=== PATIENT | female | born 1965 | race Caucasian/White ===

== ENCOUNTER → 2018-02-03 15:46 | Outpatient (CLI) | payer BC, OTHER, SELFPAY ==
--- NOTE | 2018-02-03 16:00 | MRI_ITS ---
STUDY: MRI CERVICAL SPINE WITHOUT CONTRAST REASON FOR EXAM: Female, 53 years old. Neck and right shoulder pain TECHNIQUE: Standardized fat and water weighted pulse sequences were obtained in the sagittal and axial planes. COMPARISON: None FINDINGS: Normal foramen magnum and brainstem-cervical cord junction. Normal craniovertebral junction. Normal anterior atlantoaxial articulation. Normal odontoid process. Decreased cervical lordosis. Normal vertebral bodies and posterior osseous elements. C2-3: Normal endplates. Normal disc height, signal and morphology. Normal central canal and intervertebral neural foramina. C3-4: Normal endplates. Normal disc height, signal and morphology. Normal central canal and intervertebral neural foramina. C4-5: Normal endplates. Normal disc height, signal and mild broad-based left paracentral/posterolateral disc/osteophyte protrusion mildly narrowing the central canal and compressing the ventral surface of the cord on the left. There is mild to moderate narrowing of the right nerve root foramen and moderate to severe narrowing on the left. C5-6: Normal endplates. Normal disc height, signal and minor bulging of the disc.. Normal central canal. Severe left neuroforaminal stenosis secondary to bony hypertrophy C6-7: Normal endplates. Normal disc height, signal and bulging disc osteophyte complex with moderate size right posterolateral disc/osteophyte protrusion.. Mild narrowing of the central canal and encroachment upon ventral surface of the cord on the right. Moderate right neuroforaminal stenosis and more severe narrowing on the left. C7-T1: Normal endplates. Normal disc height, signal and morphology. Normal central canal and intervertebral neural foramina. Normal cervical cord. Normal visualized soft tissue structures. MRI/Spine Cervical (Routine) IMPRESSION: Spinal stenosis at C4-5, C5-6 and C6-7 secondary to disc disease and bony hypertrophy. Findings as above Incidental finding of bilateral thyroid nodules which may be further assessed with sonogram if clinically warranted Electronically Signed: Mg Curtis MD at 17:40 EDT , Service support ,
== END ==
PROVIDERS: Family Provider Family Medicine; PCP Family Medicine; Visit Provider Family Medicine
DX: M50.321 Other cervical disc degeneration at C4-C5 level (principal); M48.02 Spinal stenosis, cervical region; M89.38 Hypertrophy of bone, other site; E04.1 Nontoxic single thyroid nodule
CPT/HCPCS: 72141

== ENCOUNTER → 2018-02-16 15:41 | Outpatient (CLI) | payer BC, OTHER, SELFPAY ==
--- NOTE | 2018-02-16 15:42 | US_ITS ---
STUDY: THYROID ULTRASOUND REASON FOR EXAM: Female, 53 years old. Thyroid nodule TECHNIQUE: Ultrasound evaluation of the thyroid was performed with real-time and static cobos-scale imaging. COMPARISON: None. FINDINGS: RIGHT LOBE: The right lobe of the thyroid gland measures 4.8x1.7x1.9 cm. There is a homogeneous echotexture. Inferior nodule visualized measuring 17 x 14 x 11 mm. The lesion is solid /cystic with irregular margins and rico nodular doppler flow. LEFT LOBE: The left lobe of the thyroid gland measures 4.6x2x1.7 cm. There is a homogeneous echotexture. 2 nodules visualized. Superior nodule measures 4.9x 5.7 x 4 mm. Inferior nodule measures 12 x 10 x 9.4 mm. The lesion is solid with regular margins and rico nodular doppler flow. ISTHMUS: The isthmus measures 3 mm. . Lymph node in the lateral left neck measuring 14 x 10 mm. US/Thyroid IMPRESSION: Bilateral thyroid nodules. The [place] Association of Clinical Care Support Representative (AACE) in collaboration with the [employer] (DWAYNE) and the Thyroid Association (ETA) published guidelines for the diagnosis and management of thyroid nodules. Biopsy of any solid and hypoechoic nodule larger than 1 cm in diameter. Thyroid nodules of any size undergo biopsy if the patient has been exposed to irradiation, has a family history of medullary carcinoma or multiple endocrine neoplasia, or has previously undergone partial thyroidectomy for thyroid cancer or if an elevated calcitonin level is present. The AACE/DWAYNE/ETA guidelines recommend biopsy of nodules of any size with marked hypoechogenicity, irregular or microlobulated margins, a taller than wide configuration (anteroposterior dimension greater than transverse dimension), microcalcifications, or chaotic arrangement of intranodular vascular images or chaotic intranodular vascular spots. These guidelines recommend biopsy independent of size if ultrasonography suggests the presence of metastatic lymph nodes or if extracapsular growth is noted in the nodule. They recommend biopsy of the solid component of all complex cystic nodules because of the risk of cystic papillary carcinoma. They further suggest that nodules that are hot on scintigraphy do not require biopsy. -Current Guidelines for the Management of Thyroid Nodules. Raúl Finch MD, DEBBY SHIRLEY. Endocr Pract. 2012; 18(4): 596-599. Electronically Signed: Flex Gaona MD at 17:43 EDT , Service support ,
== END ==
PROVIDERS: Family Provider Family Medicine; PCP Family Medicine; Visit Provider Family Medicine
DX: E04.2 Nontoxic multinodular goiter (principal)
CPT/HCPCS: 76536

== ENCOUNTER → 2018-05-16 19:50 | Outpatient (CLI) | payer BC, OTHER, SELFPAY ==
[2018-05-19 14:59] LABS: HPV HC, High Risk Negative (Negative)
== END ==
PROVIDERS: Visit Provider Obstetrics & Gynecology
DX: Z12.4 Encounter for screening for malignant neoplasm of cervix (principal)
CPT/HCPCS: 87624; 88175; G0145

== ENCOUNTER → 2018-06-14 15:48 | Outpatient (CLI) | payer BC, OTHER, SELFPAY | PROVIDERS: Family Provider Family Medicine; PCP Family Medicine; Visit Provider Obstetrics & Gynecology | DX: M81.0 Age-related osteoporosis without current pathological fracture (principal); Z12.31 Encounter for screening mammogram for malignant neoplasm of breast | CPT/HCPCS: 77063; 77067; 77080 ==

== ENCOUNTER 2018-06-21 09:47 | Day surgery (SDC) | payer BC, OTHER, SELFPAY ==
--- NOTE | 2018-06-20 18:24 | PCM.HP.BLA ---
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 Required: No Accompanied by: None Is patient in pain?: No Allergies No Known Allergies Allergy (Verified 06/16/18 09:40) Medications Atenolol [Tenormin (beta ella)] 100 mg PO QHS 06/27/16 [History Confirmed 06/16/18] Fluoxetine [Prozac] 60 mg PO DAILY 06/27/16 [History Confirmed 06/16/18] Gemfibrozil [Lopid] 600 mg PO BID 06/27/16 [History Confirmed 06/16/18] Metformin HCl [Glucophage] 1,000 mg PO BIDCM 06/27/16 [History Confirmed 06/16/18] buPROPion tablets [Wellbutrin tablets] 100 mg PO QHS 06/27/16 [History Confirmed 06/16/18] Dulaglutide [Trulicity] 1.5 mg SQ MO 09/17/17 [History Confirmed 06/16/18] Ibuprofen 800 mg PO Q8H PRN PRN #30 tab 09/22/17 [Rx Confirmed 06/16/18] PFSH Medical History Anxiety (Acute) Arthritis (Acute) Carpal tunnel syndrome (Acute) Depression (emotion) (Acute) Diabetes (Acute) High triglycerides (Acute) High blood pressure (Chronic) Surgical History History of bilateral oophorectomy (Acute) History of carpal tunnel surgery of left wrist (Acute) History of section (Acute) History of cholecystectomy (Acute) Family History Son Anxiety Father Osteoporosis Mother Arthritis Social History Smoking Status: Never smoker alcohol intake: never substance use type: does not use additional social history: DOES USE ASPIRIN DOES USE IBUPROFEN HPI evaluation Dupuytren's disease bilateral palms with painful nodularity: Details: HISTORY OF PRESENT ILLNESS 53 year old woman presents with painful nodularity in her bilateral palms, worse on the left, that she noticed several months ago and the painful symptomatology has worsened. She has also noticed some paresthesias in her long finger and ring finger bilaterally. She had a left carpal tunnel surgery done by Dr. Ewing in 2016. She is able to straighten her fingers. She denies any trauma. She denies any fever. She denies any alcohol usage. The patient does not smoke. Patient denies epilepsy. She does have diabetes mellitus. She presents today for further evaluation and treatment. REVIEW OF SYSTEMS General - Denies fever, fatigue, and weight loss. Eyes - Denies cataracts and glaucoma. ENT - Denies nasal congestion and sore throat. Endocrine - Denies excessive thirst and urination. Skin - Denies skin cancer. Has painful nodules bilateral palms. Musculoskeletal - Has joint pain and joint stiffness and arthritis. Denies weakness of muscles and joints and back pain. Neuro - Denies headaches. Has paresthesias bilateral long finger and ring finger. Cardiovascular - Denies chest pain, fatigue, and shortness of breath with exertion. Psych - Denies anxiety. Has depression. Respiratory - Denies chronic cough and shortness of breath. Has sleep apnea. Gastrointestinal - Denies nausea, vomiting, diarrhea, and constipation. Hematologic - Denies abnormal bruising and bleeding. Genitourinary - Denies hematuria and urinary frequency. PHYSICAL EXAM General - Alert and Oriented HEENT - PERRL. EOMI. Throat is clear. Neck - Supple and nontender. No cervical adenopathy. Lungs - Clear to auscultation. Heart - Regular rate and rhythm. Abdomen - Soft and nondistended. Extremities - Patient is right hand dominant. FROM. No axillary adenopathy. Radial pulses are palpable. Fingers are warm with good capillary refill. On the left distal palm at the crease are painful nodules at the level of the long finger and ring finger. Measures 2.5 cm. Tenderness to palpation. Some adherence to the overlying skin. No ulceration. Fingers are straight. Decreased sensation to pinprick at the level of the long finger and ring finger. On the right distal palm at the crease is a painful nodule at the level of the long finger and ring finger. Measures 1 cm. Mild tenderness to palpation. Some adherence to the overlying skin. No ulceration. Fingers are straight. Decreased sensation to pinprick at the level of the long finger and ring finger. Neuro - CN II-XII grossly intact. Psych - Normal mood and affect. ASSESSMENT 1. 2.5 cm painful Dupuytren's nodules left distal palm at the crease at the level of the long finger and ring finger. 2. 1 cm painful Dupuytren's nodule right distal palm at the crease at the level of the long finger and ring finger. 3. Paresthesias bilateral long finger and ring fingers. 4. History of left carpal tunnel surgery. PLAN Recommend excision of these painful Dupuytren's nodules in her palm bilaterally, worse on the left. Will do the left side first. Her fingers are straight at the present time. However some fibrous tissue may be developing at the base of the finger. So she is at risk in the future for contracture of her fingers thus necessitating additional surgery. Depending on how much skin needs to be removed in the palm will decide if primary closure can be done versus a local skin flap or a skin graft or leaving the wound open and proceed with Silver dressing changes daily. Any tissue that is removed will be sent to Pathology for analysis to rule out carcinoma. After healing has occurred on the left, then we can proceed with the right hand. After the surgeries have been completed, if paresthesias persists on the right, then will obtain NCV studies. She already had left carpal tunnel surgery in 2016. Surgery will be done under general anesthesia on an outpatient basis. Will have a bulky dressing in the palm postop. Finger range of motion will be encouraged to minimize stiffness. If there are difficulties with stiffness postop, then evaluation by OT will be done for range of motion exercises, strengthening, and edema management. Patient was informed of the risks and complications of the procedure including alternatives to surgery. These were discussed with the patient personally. Patient voices understanding and wishes to proceed. Some of the risks and complications were included in a form from the [place] [employer]. Some of the risks and complications that were discussed included but were not inclusive of failure to diagnose including symptom relief, pain, infection, numbness, stiffness, loss of digit, RSD (CRPS), need for further surgery, contracture, and wound healing problems.
[2018-06-21] VITALS (8 sets, daily range): BP systolic 128–154; BP diastolic 67–96; PULSE 78–98; RESP 16–18; TEMP 36.1–36.6; O2SAT 90–99; BMI 31.7
[2018-06-21 10:35] LABS: Bedside Glucose 126 mg/dL (70-110)
--- NOTE | 2018-06-21 11:30 | DUP_PTH ---
PATIENT: VINCENZO EMERY [place]: [facility] [place] U[place][id number] AGE/SX: 53/F ROOM: RE06/21/[address]: Dr. Scotty Hendrix MD : 1965 BED: DIS: 06/21/2018 SPEC #: [id number] RECD: 06/22/18 09:08 STATUS: JORI PIMENTEL #: [id number] BHARATHI: 06/21/18 11:[address]: Scotty Hendrix DEPT: SURGICAL PATHOLOGY RECD BY: Jaye Ramírez ENTERED: 06/22/18 10:04 SP TYPE: JENNIFER LOPEZHR DR: Damari Henson PA-C Tissues: Ligament, NOS Procedures: Surgery Specimen Level IV HEADER OPERATION: Excision painful Dupuytren?s nodules left palm PRE-OP DIAGNOSIS: 2.5 painful Dupuytren?s nodules left distal palm at crease at level of long finger and ring finger; 1 cm painful Dupuytren?s nodule right distal palm at crease at level of long and ring finger; paresthesias bilateral long finger and ring finger; history left carpal tunnel surgery TISSUE SUBMITTED: Dupuytren?s nodule, left palm MICROSCOPIC DIAGNOSIS Dupuytren's nodule, left palm, excision: Consistent with fibromatosis. JEFRY:lesly 06/23/18 MICROSCOPIC DESCRIPTION Slides are reviewed. GROSS DESCRIPTION Received in fixative is one container labeled with the patient's name and designated Dupuytren's nodule, left palm. The specimen consists of multiple irregular fragments of light null, rubbery soft tissue that in aggregate measure 2.5 x 2 x 0.2 cm. The specimen is totally submitted in one cassette. / AM:lesly 06/22/18 TC:5 CPT: 96924
[2018-06-21] MEDS: Cefazolin 2 GM in 0.9% Normal Saline 100 ML IV (13:45)
[2018-06-21] MEDS: Mupirocin Ointment 22gm Tube 1 APPLIC (14:37)
--- NOTE | 2018-06-21 15:36 | PCM.IMDPSTOP ---
Immediate Post-Op Note Date of Procedure: 06/21/18 Primary Surgeon/Physician: Scotty Hendrix oven technician: None Pre-Operative Diagnosis: 1. 2.5 cm painful Dupuytren's nodules left distal palm at the crease at the level of the long finger and ring finger. 2. Paresthesias left long finger and left ring finger. 3. History of left carpal tunnel surgery. Post-Operative Diagnosis: Same. Surgery/Procedure Performed:: 1. Excison 2.5 cm painful Dupuytren's nodules left distal palm at the crease by the the long finger and ring finger. 2. Neuroplasty common digital nerves left long finger and left ring finger. Description of Surgical Findings:: Total tourniquet time - 72 minutes. Estimated Blood Loss: 5 ml. Specimen's removed: Painful Dupuytren's nodules and fibromatosis left distal palm by long finger and ring finger to Pathology. Drains: None. Type of Anesthesia:: General - Admit VTE Documentation VTE Present on Admission: No VTE Mechan Device Prophylaxis: SCD's VTE Pharm Prophylaxis ordered?: No
--- NOTE | 2018-06-21 15:47 | PCM.DC ---
You will use the following diet at home:: No restrictions Discharge Activity: May Shower - place plastic bag over left hand when showering., - - no lifting with left hand. May shower in (days): 1 - wear plastic bag over left hand when showering. May resume sexual activity in: No Restrictions Weight Bearing Status: Weight bearing as tolerated Lifting Restrictions: no lifting with left hand. Keep extremity elevated above heart level: Left Arm Call your doctor if your incision/area has: Continuous Slow Oozing, Sudden Increased Bleeding, Increased Pain/ Swelling, Increased Redness, Foul Smelling Discharge, Swelling at the incision site Call your doctor if you observe: Fever of 101 or Higher, Coldness, Increased Pain, Shortness of breath, Chest pain, Calf discomfort, Uncontrolled pain Change Dressing in (Days):: 7 - will change dressing in office. Cleanse incision/area with: - - wear plastic bag over left hand when showering. Allergies/Adverse Reactions: Allergies No Known Allergies Allergy (Verified 06/16/18 09:40) Medications to take at Discharge Atenolol [Tenormin (beta ella)] 100 mg PO QHS 06/27/16 Fluoxetine [Prozac] 60 mg PO DAILY 06/27/16 Gemfibrozil [Lopid] 600 mg PO BID 06/27/16 Metformin HCl [Glucophage] 1,000 mg PO BIDCM 06/27/16 buPROPion tablets [Wellbutrin tablets] 100 mg PO QHS 06/27/16 Dulaglutide [Trulicity] 1.5 mg SQ MO 09/17/17 Cefadroxil [Duricef] 500 mg PO BID #8 cap 06/21/18 Oxycodone HCl/Acetaminophen [Percocet 5/325] 1 - 2 tab PO 4X/DAY PRN PRN 5 Days #40 tab 06/21/18 The following prescriptions were given: Oxycodone HCl/Acetaminophen [Percocet 5/325] 1 - 2 tab PO 4X/DAY PRN PRN 5 Days #40 tab PRN Reason: Pain Cefadroxil [Duricef] 500 mg PO BID #8 cap Primary Care Physician: Damari Henson PA-C [Primary Care Provider] - Test Results: Test results from this visit will be discussed in further detail at your follow-up appointment, if applicable. Please Follow Up With: Scotty Hendrix MD When: one week. call [phone] for appt. Proposed Discharge Date: 06/21/18
[2018-06-21 15:50] LABS: Bedside Glucose 103 mg/dL (70-110)
[2018-06-21] MEDS: Acetaminophen 325 MG Tablet PO (17:08)
[2018-06-21] MEDS: oxyCODONE 5 MG Tablet PO (17:08)
--- NOTE | 2018-06-21 23:36 | PCM.OPRPT ---
Report of Operation Date of Procedure: 06/21/18 Pre-Operative Diagnosis: 1. 2.5 cm painful Dupuytren's nodules left distal palm at the crease at the level of the long finger and ring finger. 2. Paresthesias left long finger and left ring finger. 3. History of left carpal tunnel surgery. Post-Operative Diagnosis: Same. Surgery/Procedure Performed:: 1. Excison 2.5 cm painful Dupuytren's nodules left distal palm at the crease by the left long finger and left ring finger with palmar fasciectomy. 2. Neuroplasty common digital nerve left long finger at distal palmar crease left hand. 3. Neuroplasty common digital nerve left ring finger at distal palmar crease left hand. Description of Surgical Findings:: 53 year old woman presents with painful nodularity in her bilateral palms, worse on the left, that she noticed several months ago and the painful symptomatology has worsened. She has also noticed some paresthesias in her long finger and ring finger bilaterally. She had a left carpal tunnel surgery done by Dr. Ewing in 2016. She is able to straighten her fingers. She denies any trauma. She denies any fever. She denies any alcohol usage. The patient does not smoke. Patient denies epilepsy. She does have diabetes mellitus. Patient was informed of the risks and complications of the procedure including alternatives to surgery. These were discussed with the patient personally. Patient voices understanding and wishes to proceed. Some of the risks and complications were included in a form from the [place] [employer]. Some of the risks and complications that were discussed included but were not inclusive of failure to diagnose including symptom relief, pain, infection, numbness, stiffness, loss of digit, RSD (CRPS), need for further surgery, contracture, and wound healing problems. Total tourniquet time - 72 minutes. 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 Drains: None. Estimated Blood Loss (mL): 5 ml. Description of Procedure: Patient was taken to OR in supine position and was placed under general anesthesia. A tourniquet was placed on her left arm. Her left upper extremity was then prepped and draped in the usual fashion. SCD's were placed for DVT prophylaxis. Perioperative antibiotics were given intravenously. The left upper extremity was elevated and an Esmarch bandage was used to wrap around the left hand. The tourniquet was elevated to 250 mmHg. Under loupe magnification, I infiltrated the left palm in the distal palmar crease with xylocaine with epinephrine. After waiting 5 minutes for the anesthetic to take effect, I made an incision in the distal palmar crease at the level of the long finger and ring finger. Dissection was carried down into the subcutaneous tissue. There was a lot of dense fibrous tissue adherent to the skin which was excised. I dissected free the painful Dupuytren's nodules in this area. The fibrous tissue extended down to the tendon sheath. There was fibrous connections and external pressure on the adjacent common digital nerves to both the long finger and ring finger. A neuroplasty was then performed to free up these nerves. I freed up these nerves distally to the bifurcation at the level of the webspace. After the neuroplasty, the nerves were soft with no more evidence of fibrous scarring. Also when I dissected down to the tendon sheath, the A1 luz was visible to both long finger and ring finger. I incised the A1 luz to both the long finger and the ring finger. This will eliminate the need to go back into this scar tissue later on if the patient were to develop trigger finger symptoms since the A1 luz has already been incised and opened up. The wound was irrigated with saline. The tourniquet was release after 72 minutes. Hemostasis was obtained with gentle pressure, elevation, and some light electrocautery. I then closed the wound in multiple layers with 5-0 Monocryl interrupted sutures for the deep dermis and subcutaneous tissue. The skin was approximated with 5-0 Nylon vertical mattress and simple interrupted sutures. Antibiotic ointment was applied to the incision followed by xeroform gauze and 2x2 gauze followed by a 2 inch ange wrap and a compression ivett wrap. Patient tolerated the procedure well and was sent to PACU in satisfactory condition. She will be sent home on antibiotics and pain medication. She will wear a plastic bag over her left hand when showering. She will keep her left hand elevated with no lifting in the initial postop period. She will followup in the office in a week for a wound check as well as to discuss the pathology report. The sutures would be removed in two weeks. Grafts/Implants Used: None. - Complications None. - Admit VTE Documentation VTE Present on Admission: No VTE Mechan Device Prophylaxis: SCD's VTE Pharm Prophylaxis ordered?: No Code Visit Surgery Charges CPT - 04103 ICD-10 - M72.0, R20.2 72343 R20.2, M72.0 20431 R20.2, M72.0
== END 2018-06-21 18:08 | disposition home or self-care (01) ==
LOC: SDC 09:48 → AC 13:28
PROVIDERS: Family Provider Family Medicine; PCP Family Medicine; Visit Provider Surgery
PROC: (CPT 26121; principal; 2018-06-21 11:15)
DX: M72.0 Palmar fascial fibromatosis [Dupuytren] (principal); I10 Essential (primary) hypertension; E11.9 Type 2 diabetes mellitus without complications; F32.9 Major depressive disorder, single episode, unspecified; F41.9 Anxiety disorder, unspecified; K21.9 Gastro-esophageal reflux disease without esophagitis; G47.30 Sleep apnea, unspecified; E78.2 Mixed hyperlipidemia; Z98.890 Other specified postprocedural states; Z79.84 Long term (current) use of oral hypoglycemic drugs; Z79.82 Long term (current) use of aspirin; Z79.899 Other long term (current) drug therapy
CPT/HCPCS: 26121; 64704; 82962; 88305; J7120; J2405

== ENCOUNTER → 2018-08-08 16:04 | Outpatient (CLI) | payer BC, OTHER, SELFPAY ==
--- NOTE | 2018-08-08 16:45 | MRI_ITS ---
STUDY: MRI RIGHT SHOULDER REASON FOR EXAM: Female, 53 years old. Pain. Repetitive motion.. TECHNIQUE: Standardized fat and water weighted pulse sequences were obtained in all 3 orthogonal planes. COMPARISON: None. FINDINGS: There is supraspinatus tendinosis with tendon thickening, but without a demonstrated tendon tear. There is infraspinatus tendinosis with tendon thickening, but without a demonstrated tendon tear. Normal subscapularis tendon. Normal teres minor tendon. Normal supraspinatus muscle. Normal infraspinatus muscle. Normal subscapularis muscle. Normal teres minor muscle. Normal glenohumeral articulation. Normal humeral head and visualized proximal humerus. Normal biceps labral complex. Normal intracapsular long biceps tendon. Normal labrum. Normal capsulo- ligamentous complex. Normal rotator interval. 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 There is a Type II morphology (curved) acromion, with a neutral orientation. There is minimal fluid distention of the subacromial bursa, consistent with mild subacromial-subdeltoid bursitis. Normal visualized coracohumeral and coracoacromial ligaments. Normal quadrilateral space. Normal axillary space. Normal deltoid muscle. Normal trapezius muscle. MRI/Upper Ext Joint Only(Routine) IMPRESSION: No rotator cuff tear. Tendinosis of the supraspinatus and infraspinatus. Acromioclavicular spurring with impingement. Electronically Signed: Stanley Spear MD at 17:52 EDT , Service support ,
== END ==
PROVIDERS: Family Provider Family Medicine; PCP Family Medicine; Referring Provider Neurological Surgery; Visit Provider Neurological Surgery
DX: M75.81 Other shoulder lesions, right shoulder (principal); M25.811 Other specified joint disorders, right shoulder
CPT/HCPCS: 73221

== ENCOUNTER → 2018-09-01 14:11 | Outpatient (CLI) | payer BC, OTHER, SELFPAY ==
--- NOTE | 2018-09-01 14:13 | RAD_ITS ---
STUDY: X-RAY - CERVICAL SPINE REASON FOR EXAM: Female, 53 years old. Numbness in right arm TECHNIQUE: 5 view(s) of the cervical spine were obtained. COMPARISON: None FINDINGS: Normal anterior atlantoaxial articulation. Normal odontoid process. Normal cervical lordosis. Normal vertebral bodies and endplates. No evidence for acute fracture or subluxation. Mild narrowing of C6-7 disc space. The soft tissue structures are unremarkable. RAD/Cerv Spine 4 or 5 Views IMPRESSION: Mild spondylosis.. No evidence for acute fracture or other significant bony pathology Electronically Signed: Mg Curtis MD at 23:58 EDT , Service support ,
--- NOTE | 2018-09-01 14:13 | RAD_ITS ---
STUDY: X-RAY - RIGHT SHOULDER REASON FOR EXAM: Numbness in right arm, no specific injury. TECHNIQUE: 3 view(s) of the shoulder. COMPARISON: None. FINDINGS: Normal glenohumeral articulation. There is acromioclavicular arthrosis with hypertrophic changes. Normal acromion. Normal humeral head and visualized proximal humerus. The soft tissue structures are unremarkable. Normal visualized pulmonary apex. RAD/Shoulder min 2 Views IMPRESSION: Acromioclavicular arthrosis. Electronically Signed: Kenneth Buchanan MD at 15:58 EDT Tel , Service support ,
== END ==
PROVIDERS: Family Provider Family Medicine; PCP Family Medicine; Referring Provider Orthopaedic Surgery; Visit Provider Orthopaedic Surgery
DX: M54.2 Cervicalgia (principal); M25.511 Pain in right shoulder
CPT/HCPCS: 72050; 73030

== ENCOUNTER → 2019-06-15 15:42 | Outpatient (CLI) | payer BC, OTHER, SELFPAY ==
--- NOTE | 2019-06-15 15:45 | BI_ITS ---
MAMMOGRAPHY - BILATERAL SCREENING REASON FOR EXAM: Female, 54 years old. Routine annual screening examination. PERTINENT HISTORY: Non-contributory. TECHNIQUE: Digital bilateral breast gloria (3D mammographic acquisition) in the CC and MLO projections. 2-D mediolateral oblique (MLO) and craniocaudad (CC) views of both breasts were obtained. CAD: Full Field Digital Mammography with Computer Added Detection was performed. COMPARISON: Comparison is made with prior study dated June 14, 2018 and April 26, 2017. FINDINGS: Breast Composition: The breasts are almost entirely fatty. There are no dominant masses or suspicious calcifications. No other significant abnormalities are identified. There has been no significant change since the prior study. BI/SCREEN MAMM (CAD) W/GLORIA BILAT IMPRESSION: Stable bilateral screening mammogram. Yearly follow-up mammogram recommended. (A) ASSESSMENT CATEGORY: BIRADS Category 1: Negative. A letter regarding these results will be sent to the patient by the facility within 30 days. Approximately 10% of breast cancers are not detected by mammography. A normal mammogram should not delay biopsy of a clinically suspicious abnormality. [id number] Electronically Signed: Lamont Queen, at 9:10 EDT , Service support ,
== END ==
PROVIDERS: Family Provider Family Medicine; PCP Family Medicine; Referring Provider Obstetrics & Gynecology; Visit Provider Obstetrics & Gynecology
DX: Z12.31 Encounter for screening mammogram for malignant neoplasm of breast (principal)
CPT/HCPCS: 77063; 77067

== ENCOUNTER → 2021-05-09 10:36 | Outpatient (CLI) | payer OTHER, SELFPAY ==
--- NOTE | 2021-05-09 10:50 | RAD_ITS ---
STUDY: X-RAY - RIGHT FOOT CLINICAL: Female, 56 years old. PLANTAR FIBROMA TECHNIQUE: 3 view(s) of the foot. COMPARISON: None. FINDINGS: There is an enthesophyte involving the posterior superior calcaneus at the site of insertion of the Achilles tendon. Plantar spur. Normal visualized subtalar, talonavicular, calcaneocuboid, tarsal and tarsometatarsal articulations. Normal metatarsi. There is degenerative arthrosis of the metatarsophalangeal joint of the hallux . Normal tibial and fibular sesamoid bones. Normal interphalangeal joint of the great toe. Normal phalanges of the great toe. Normal second through fifth metatarsophalangeal joints. Normal interphalangeal joints and phalanges of the lesser toes. The soft tissue structures are unremarkable. RAD/Foot min 3 Views IMPRESSION: Calcaneal spurs. Electronically Signed: Lamont Queen MD at 13:23 EDT , Service support ,
--- NOTE | 2021-05-09 10:50 | RAD_ITS ---
STUDY: X-RAY - LEFT FOOT CLINICAL: Female, 56 years old. PLANTAR FIBROMA TECHNIQUE: 3 view(s) of the foot. COMPARISON: Comparison is made with prior study dated 06/27/2016. FINDINGS: There is an enthesophyte involving the posterior superior calcaneus at the site of insertion of the Achilles tendon. Plantar spur. Normal visualized subtalar, talonavicular, calcaneocuboid, tarsal and tarsometatarsal articulations. Normal metatarsi. There is degenerative arthrosis of the metatarsophalangeal joint of the hallux . Normal tibial and fibular sesamoid bones. Normal interphalangeal joint of the great toe. Normal phalanges of the great toe. Normal second through fifth metatarsophalangeal joints. Normal interphalangeal joints and phalanges of the lesser toes. The soft tissue structures are unremarkable. RAD/Foot min 3 Views IMPRESSION: Joint space narrowing at the first metatarsal phalangeal joint. Calcaneal spurs. Electronically Signed: Lamont Queen MD at 14:42 EDT , Service support ,
== END ==
PROVIDERS: PCP Family Medicine; Referring Provider Podiatrist; Visit Provider Podiatrist
DX: D36.7 Benign neoplasm of other specified sites (principal)
CPT/HCPCS: 73630

== ENCOUNTER → 2021-05-23 08:52 | Outpatient (CLI) | payer OTHER, SELFPAY ==
--- NOTE | 2021-05-23 15:50 | RAD_ITS ---
STUDY: X-RAY - RIGHT FOOT CLINICAL: Female, 56 years old. PLANTAR FIBROMA, BILATERAL TECHNIQUE: 3 view(s) of the foot. COMPARISON: None. FINDINGS: Plantar and posterior calcaneal spurs. Normal visualized subtalar, talonavicular, calcaneocuboid, tarsal and tarsometatarsal articulations. Normal metatarsi. There is mild degenerative arthrosis of the metatarsophalangeal joint of the hallux . Normal tibial and fibular sesamoid bones. Normal interphalangeal joint of the great toe. Normal phalanges of the great toe. Normal second through fifth metatarsophalangeal joints. Normal interphalangeal joints and phalanges of the lesser toes. The soft tissue structures are unremarkable. RAD/Foot min 3 Views IMPRESSION: Calcaneal spurs. Mild degenerative arthrosis. Electronically Signed: Rocco Ram MD at 9:07 EDT Tel , Service support ,
--- NOTE | 2021-05-23 15:50 | RAD_ITS ---
STUDY: X-RAY - LEFT FOOT CLINICAL: Female, 56 years old. PLANTAR FIBROMA, BILATERAL TECHNIQUE: 3 view(s) of the foot. COMPARISON: None. FINDINGS: Plantar and posterior calcaneal spurs. Normal visualized subtalar, talonavicular, calcaneocuboid, tarsal and tarsometatarsal articulations. Normal metatarsi. There is mild degenerative arthrosis of the metatarsophalangeal joint of the hallux . Normal tibial and fibular sesamoid bones. Normal interphalangeal joint of the great toe. Normal phalanges of the great toe. Normal second through fifth metatarsophalangeal joints. Normal interphalangeal joints and phalanges of the lesser toes. The soft tissue structures are unremarkable. RAD/Foot min 3 Views IMPRESSION: Calcaneal spurs. Mild degenerative arthrosis. Electronically Signed: Rocco Ram MD at 9:08 EDT Tel , Service support ,
== END ==
PROVIDERS: PCP Family Medicine; Referring Provider Podiatrist; Visit Provider Podiatrist
DX: M72.2 Plantar fascial fibromatosis (principal); M19.072 Primary osteoarthritis, left ankle and foot; M19.071 Primary osteoarthritis, right ankle and foot; M77.32 Calcaneal spur, left foot; M77.31 Calcaneal spur, right foot
CPT/HCPCS: 73630

== ENCOUNTER → 2021-06-28 07:56 | Outpatient (CLI) | payer OTHER, SELFPAY ==
--- NOTE | 2021-06-28 08:10 | MRI_ITS ---
STUDY: MRI LEFT MIDFOOT REASON FOR EXAM: Female, 56 years old. SOFT TISSUE MASS IN ARCH OF FOOT TECHNIQUE: Standardized fat and water weighted pulse sequences were obtained in all 3 orthogonal planes. COMPARISON: Left foot x-ray dated May 23, 2021 FINDINGS: A 1.10 x 0.47 x 1.35 cm plantar fibroma is present in the plantar fascia and subcutaneous tissues beneath the base of the second metatarsal bone. No additional soft tissue masses are present. A moderate size plantar calcaneal spur is present with moderate thickening and intrasubstance degeneration and partial tearing of the central cord of plantar fascia attaches to this region of the calcaneus. No bursitis is present. Normal talonavicular articulation. Normal calcaneocuboid articulation. Normal navicular-cuneiform articulations. Normal intercuneiform articulations. Normal first tarsometatarsal articulation. Normal Lisfranc ligament. Normal second and third tarsometatarsal articulations. Normal cuboid fourth and cuboid fifth tarsometatarsal articulation. Normal first through fifth metatarsi. Normal tibialis anterior tendon. Normal extensor hallucis longus tendon. Normal extensor digitorum longus tendons. Normal peroneus longus tendon and distal insertion. Normal peroneus brevis tendon and distal insertion. Normal intrinsic muscles of the mid and forefoot region. Normal extensor digitorum brevis muscle. Normal subcutis adipose space. MRI/Lower Ext/No Jt/w/o IMPRESSION: 1. A 1.10 x 0.47 x 1.35 cm plantar fibroma is present in the plantar fascia and subcutaneous tissues beneath the base of the second metatarsal bone. No additional soft tissue masses are present. 2. A moderate size plantar calcaneal spur is present with moderate thickening and intrasubstance degeneration and partial tearing of the central cord of plantar fascia attaches to this region of the calcaneus. No bursitis is present. Electronically Signed: Manjinder Franz MD at 15:35 EDT , Service support ,
--- NOTE | 2021-06-28 08:10 | MRI_ITS ---
STUDY: MRI RIGHT MIDFOOT REASON FOR EXAM: Female, 56 years old. SOFT TISSUE MASS IN ARCH OF FOOT TECHNIQUE: Standardized fat and water weighted pulse sequences were obtained in all 3 orthogonal planes. COMPARISON: Right foot x-ray dated May 09, 2021 FINDINGS: A 1.46 x 1.24 x 0.67 cm plantar fascial fibroma is present beneath the base of the first metatarsal bone. Normal remaining visualized aspects of the plantar fascia. Mild degenerative changes of the first MTP joint and the sesamoid MTP articulations noted. Normal talonavicular articulation. Normal calcaneocuboid articulation. Normal navicular-cuneiform articulations. Normal intercuneiform articulations. Normal first tarsometatarsal articulation. Normal Lisfranc ligament. Normal second and third tarsometatarsal articulations. Normal cuboid fourth and cuboid fifth tarsometatarsal articulation. Normal first through fifth metatarsi. Normal tibialis anterior tendon. Normal extensor hallucis longus tendon. Normal extensor digitorum longus tendons. Normal peroneus longus tendon and distal insertion. Normal peroneus brevis tendon and distal insertion. Normal intrinsic muscles of the mid and forefoot region. Normal extensor digitorum brevis muscle. Normal subcutis adipose space. MRI/Lower Ext/No Jt/w/o IMPRESSION: 1. A 1.46 x 1.24 x 0.67 cm plantar fascial fibroma is present beneath the base of the first metatarsal bone. Normal remaining visualized aspects of the plantar fascia. 2. Mild degenerative changes of the first MTP joint and the sesamoid MTP articulations noted. Electronically Signed: Manjinder Franz MD at 15:56 EDT , Service support ,
== END ==
PROVIDERS: PCP Family Medicine; Referring Provider Podiatrist; Visit Provider Podiatrist
DX: D17.39 Benign lipomatous neoplasm of skin and subcutaneous tissue of other sites (principal); M77.32 Calcaneal spur, left foot
CPT/HCPCS: 73718

== ENCOUNTER → 2022-08-22 | Outpatient (CLI) | payer BC, OTHER, SELFPAY ==
--- NOTE | 2022-08-22 07:45 | MRI_ITS ---
STUDY: MRI RIGHT ANKLE WITHOUT CONTRAST REASON FOR EXAM: Female, 57 years old. RIGHT ankle achilles tendinitis, spur TECHNIQUE: Standarized fat and water weighted pulse sequences were obtained in all 3 orthogonal plane without intravenous administration of contrast material. Comparison: MRI foot 8 FINDINGS: Normal subcutis adipose space. There is tenosynovitis of the posterior tibialis tendon sheath with an intrinsic normal tendon. Normal flexor digitorum longus tendon. There is tenosynovitis of the flexor hallucis longus tendon sheath, with pooling of fluid in the [place] of [place], which may be acting as an entrapping lesion upon the plantar cutaneous nerves. There is a tenosynovitis of the peroneal tendons without a demonstrated tendon tear. Normal tibialis anterior tendon. There is tenosynovitis of the extensor hallucis longus tendon. There is tenosynovitis of the extensor digitorum longus tendons. There is tendinosis with enthesiopathic changes of the teno-osseous insertion of the Achilles tendon, without a tendon tear. There is a plantar fasciitis with plantar fascial thickening and fascial edema, but without a focal tear. Normal plantar calcaneal tubercles. Normal intrinsic muscles of the rearfoot. There is a 4.8 mm plantar fascial fibroma is present beneath the base of the first metatarsal bone. Normal distal tibiofibular syndesmotic ligamentous complex. Normal lateral ligamentous complex. Normal subtalar ligaments and sinus tarsi. Normal deltoid ligamentous complexes. Normal plantar calcaneonavicular (spring) ligament. Normal tibiotalar articulation. Normal talar dome. Normal subtalar articulations. Normal talonavicular articulation. Normal calcaneocuboid articulation. Normal navicular-cuneiform articulations. There is a calcaneal spur. There is an enthesophyte involving the posterior superior calcaneus at the site of insertion of the Achilles tendon MRI/Lower Ext Joint Only (Routine) IMPRESSION: There is a plantar fasciitis with plantar fascial thickening and fascial edema, but without a focal tear. This is mild. There is tendinosis with enthesiopathic changes of the teno-osseous insertion of the Achilles tendon, without a tendon tear. There is a 4.8 mm plantar fascial fibroma is present beneath the base of the first metatarsal bone. There is a tenosynovitis of the peroneal tendons without a demonstrated tendon tear. There is tenosynovitis of the posterior tibialis tendon sheath with an intrinsic normal tendon. There is tenosynovitis of the extensor hallucis longus tendon. There is tenosynovitis of the extensor digitorum longus tendons. Electronically Signed: Flex Gaona MD at 17:06 EDT ,
== END | disposition home or self-care (01) ==
LOC: MRI 07:19
PROVIDERS: Referring Provider Podiatrist; Visit Provider Podiatrist
DX: M76.61 Achilles tendinitis, right leg (principal); M77.31 Calcaneal spur, right foot; M72.2 Plantar fascial fibromatosis; D21.21 Benign neoplasm of connective and other soft tissue of right lower limb, including hip
CPT/HCPCS: 73721

== ENCOUNTER → 2022-09-14 | Outpatient (CLI) | payer BC, OTHER, SELFPAY ==
--- NOTE | 2022-09-14 09:34 | NM_ITS ---
CLINICAL: 57-year-old female with history of abnormal serum alkaline phosphatase levels. WHOLE BODY 99m Tc MDP RADIONUCLIDE BONE SCINTIGRAPHY COMPARISON: None available FINDINGS: Following the intravenous administration of 21.6 mCi of 99m Tc MDP, whole body bone images reveal: 1. Increased radiopharmaceutical concentration is defined in the acromioclavicular compartments of both shoulders, the patellofemoral compartments of both knees, the fibular femoral and medial tibial compartment of the right knee, the fifth lumbar vertebra posteriorly on the right. 2. Facilitated uptake is diffusely identified in the bilateral frontal and parietal skull. 3. The remaining skeletal structures are scintigraphically unremarkable with normal-appearing renal images and urinary bladder activity identified. NM/Bone Scan Whole Body IMPRESSION: 1. The increase in radiopharmaceutical defined in the bilateral frontal and parietal calvarium may represent osteoporosis circumscripta. Plain film radiography correlation is recommended. 2. Degenerative arthritis is defined in the bilateral shoulders, the right-left knees, the fifth lumbar vertebra. Electronically Signed: Km Golden, at 19:15 EST ,
== END | disposition home or self-care (01) ==
LOC: NM 09:32
PROVIDERS: Referring Provider Internal Medicine Endocrinology, Diabetes & Metabolism; Visit Provider Internal Medicine Endocrinology, Diabetes & Metabolism
DX: M85.89 Other specified disorders of bone density and structure, multiple sites (principal); R74.8 Abnormal levels of other serum enzymes
CPT/HCPCS: 78306; A9503

== ENCOUNTER → 2022-09-15 | Outpatient (CLI) | payer BC, OTHER, SELFPAY ==
--- NOTE | 2022-09-15 18:15 | RAD_ITS ---
EXAM: XR SKULL, 4 OR MORE VIEWS CLINICAL INDICATION: ABNORMAL BONE SCAN TECHNIQUE: Frontal, lateral and Bush views of the skull. This report was created using [employer] report generation technology. COMPARISON: vt 09.14.22 FINDINGS: BONES/JOINTS: Unremarkable. No depressed skull fracture. No destructive or sclerotic abnormality observed. SINUSES: No acute abnormality. SOFT TISSUES: Unremarkable. No soft tissue swelling or gas. RAD/Skull min 4 Views IMPRESSION: Unremarkable radiographs of the skull. Electronically Signed: Flex Gaona MD at 18:50 EST ,
== END | disposition home or self-care (01) ==
LOC: RAD 18:06
PROVIDERS: Visit Provider Internal Medicine Endocrinology, Diabetes & Metabolism
DX: R93.7 Abnormal findings on diagnostic imaging of other parts of musculoskeletal system (principal)
CPT/HCPCS: 70260

== ENCOUNTER → 2022-09-29 | Outpatient (CLI) | payer BC, OTHER, SELFPAY ==
[2022-09-29 12:14] LABS: Absolute Neutrophil Count 3.4 X10^3/uL (2.0-7.7); Basophil# 0.02 X10^3/uL; Basophil% 0.3 % (0-1); Eosinophil# 0.11 X10^3/uL; Eosinophils% 1.9 % (0-5); Hemoglobin 13.2 g/dL (12.0-15.0); Lymphocyte % 29.7 % (19-41); Mean Corp Hgb Conc 32.2 g/dL (32-36); Mean Corpuscular Hgb 27.6 pg (27.0-32.0); Mean Corpuscular Volume 85.6 fL (81-99); Mean Platelet Vol. 9.8 fl (6.2-12.0); Monocyte# 0.52 X10^3/uL; Monocyte% 9.1 % (0-10); NRBC Flagged by Analyzer 0 % (0-5); Neutrophil # 3.36 X10^3/uL (2.7-7.7); Neutrophil % 58.8 % (47-70); Platelet Count 279 K/mm3 (150-450); RBC Distribution Width CV 14.3 % (11.6-14.6); RBC Distribution Width SD 44.1 fl (35.1-43.9); Red Blood Count 4.79 M/mm3 (4.2-5.4); White Blood Count 5.7 K/mm3 (4.4-11.0)
[2022-09-29 12:33] LABS: ALB/GLOB Ratio 1.3 RATIO (0.9-2.4); AST(SGOT) 26 U/L (15-37); Alanine Aminotransfer ALT/SGPT 37 U/L (13-56); Albumin, Serum 3.9 g/dL (3.2-5.0); Alkaline Phosphatase 117 U/L (45-117); Anion Gap 7 (5-15); BUN 13 mg/dL (7-18); BUN/Creat Ratio 18.1 RATIO (10-20); Calcium,Total 9.1 mg/dL (8.5-10.1); Chloride 103 mmol/L (98-107); Creatinine, Serum 0.72 mg/dL (0.55-1.02); EST Glomerular Filtration Rate 89 mL/min (>60); Est Glom Filt Rate - Afr Amer 108 mL/min (>60); Glucose 99 mg/dL (74-106); Protein, Total 6.9 g/dL (6.4-8.2); Sodium Level 139 mmol/L (136-145)
[2022-09-29 13:09] LABS: Hemoglobin A1c 6.8 % (3.8-5.6)
== END | disposition home or self-care (01) ==
LOC: MFPLAB 10:43
PROVIDERS: Visit Provider Internal Medicine Endocrinology, Diabetes & Metabolism
DX: Z01.818 Encounter for other preprocedural examination (principal); E11.9 Type 2 diabetes mellitus without complications
CPT/HCPCS: 36415; 80053; 83036; 85025

== ENCOUNTER 2022-10-09 08:17 | Day surgery (SDC) | payer BC, SELFPAY ==
[2022-10-09] VITALS (8 sets, daily range): BP systolic 105–137; BP diastolic 59–88; PULSE 77–94; RESP 14–18; TEMP 36.2–36.5; O2SAT 95–100; BMI 30.1
--- NOTE | 2022-10-09 | TESH_PTH ---
PATIENT: VINCENZO EMERY [place] [facility] [place][id number] AGE/SX: 57/F ROOM: RE10/09/[address]: Dr. Mg Brooks DPM : 1965 BED: DIS: 10/09/2022 SPEC #: [id number] RECD: 10/09/22 12:55 STATUS: JORI LOREN #: [id number] BHARATHI: 10/09/22 00:[address]: Mg Brooks DEPT: SURGICAL PATHOLOGY RECD BY: Cuong Puente ENTERED: 10/12/22 10:05 SP TYPE: TENDON OTHR DR: PHOEBE Mackey Tissues: A - Tendon and tendon sheath, NOS B - Foot, NOS Procedures: Decalcification bone/plaque Surgery Specimen Level III Surgery Specimen Level IV HEADER OPERATION: Fasciotomy plantar with resection of infracalcaneal spur PRE-OP DIAGNOSIS: Planter fasciitis, Achilles tendinopathy TISSUE SUBMITTED: A ? 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 Exostosis mid foot MICROSCOPIC DIAGNOSIS A. 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 B. Bone fragments, biopsy: Bone with reparative and reactive change consistent with exostosis. AM:lesly 10/15/2022 MICROSCOPIC DESCRIPTION Slides are reviewed. GROSS DESCRIPTION A - Received in fixative is one container labeled with the patient's name and designated Hagland's deformity and Achilles tendon. The specimen consists of a discoid fragment of null bone measuring 3.5 x 3.2 x 1.5 cm. Also present in the specimen container is an irregular fragment of yellow, indurated tissue measuring 1 x 1 x 0.5 cm. The soft tissue is submitted in its entirety in cassette 1. Representations section of bone is submitted in cassette 2 after decalcification. B - Received in fixative is one container labeled with the patient's name and designated exostosis mid foot. The specimen consists of multiple irregular null fragments of gritty tissue resembling bone that in aggregate measure 1 x 0.5 x 0.1 cm. The specimen is totally submitted in one cassette after decalcification. / AM:lesly 10/12/2022 TC:5 CPT: 75515, 27189, 12168
--- NOTE | 2022-10-09 08:04 | RAD_ITS ---
STUDY: X-RAY - RIGHT CALCANEUS REASON FOR EXAM: Female, 57 years old. FASCIOTOMY PLANTAR WITH RESECTION OF INFRACALCANEAL SPUR TECHNIQUE: 2 view(s) of the calcaneus were obtained. COMPARISON: 05/23/2021 FINDINGS: 38 seconds of fluoroscopy of the calcaneus was utilized and operating room during resection of the posterior plantar calcaneal tubercles. RAD/Calcaneus min 2 Views IMPRESSION: Fluoroscopy during calcaneal surgery. Electronically Signed: Km Ley MD at 8:39 EST ,
[2022-10-09] MEDS: Lactated Ringers 1,000 ML 15 ML IV ×2 (08:52→13:32)
[2022-10-09 09:15] LABS: Bedside Glucose 122 mg/dL (74-106)
[2022-10-09] MEDS: Cefazolin 2 GM in 0.9% Normal Saline 100 ML IV (09:54)
[2022-10-09] MEDS: Bupivacaine Mpf 0.5% 30 ML VIAL (10:30)
--- NOTE | 2022-10-09 13:08 | DCINST_ITS ---
Discharge Instructions Diet Discharge Diet: Light diet - advance as tolerated Activity Discharge Activity: Use Walker and Use Crutches Weight Bearing Status: No weight bearing (No weightbearing rigft foot) Keep extremity elevated above heart level: Right Leg (Keep right foot elevated with pillows for at least 50 minutes of every hour.) Dressing / Incision Call your doctor if your incision/area has: Continuous Slow Oozing, Sudden Increased Bleeding, Increased Redness and Foul Smelling Discharge Call your doctor if you observe: Fever of 101 or Higher, Shortness of breath, Chest pain, Increased palpitations (irregular heartbeat), Calf discomfort and Uncontrolled pain Change Dressing in: do not change dressing Remove Dressing in: do not remove dressing Cleanse incision/area with: Keep Dressing Clean & Dry Follow Up Care Please Follow Up With: Mg Brooks DPM When: 1 week, sooner if needed. [phone]: Office [phone]: Cell/Pager Test Results: Test results from this visit will be discussed in further detail at your follow- up appointment, if applicable. Discharge Plan Admission Attending Provider: Mg Brooks Primary Care Provider: Charlene Hicks Discharge Orders/Prescriptions Prescriptions: New oxycodone-acetaminophen [Percocet] 5-325 mg tablet 1 - 2 tab PO Q6H PRN (Reason: pain) 5 Days Qty: 28 0RF Eliquis 2.5 mg tablet 2.5 mg PO BID Qty: 60 0RF amoxicillin-pot clavulanate [Augmentin] 500-125 mg tablet 1 tab PO Q12H Qty: 14 0RF No Action bupropion HCl 100 MG tablet 100 mg PO DAILY atenolol 50 MG tablet 100 mg PO DAILY dulaglutide 1.5 MG/0.5 ML pen injector 1.5 mg SQ MO cholecalciferol (vitamin D3) [Vitamin D3] 25 mcg (1,000 unit) Capsule 25 mcg PO DAILY rosuvastatin [Crestor] 40 mg Tablet 40 mg PO DAILY Probiotic 3 billion cell Capsule 3,000 mmu cells PO DAILY Rx Instructions: administer with a meal Farxiga 10 mg Tablet 10 mg PO DAILY Referrals / Follow Up: Charlene Hicks PA [Primary Care Provider] - Disposition Disposition (needs filled in before D/C Order can be placed): Home, Self Care
--- NOTE | 2022-10-09 13:10 | OP.PCM_ITS ---
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, right Exostosis right midfoot Post-Operative Diagnosis: Same Surgery/Procedure Performed:: Detach/Re-attach achilles tendon with debridement and resection of retrocalcaneal spur/Cedric's deformity, right Plantar fasciotomy with resection of infracalcaneal spur, right Exostectomy right midfoot x 2, right foot Surgeon: Mg Brooks compliance administrator: Cali Type of Anesthesia: General and Local Specimen's removed: Cedric's deformity/retrocalcaneal spur and debrided achilles tendon, right foot, sent to pathology Exostosis x 2 from right foot, sent to pathology Estimated Blood Loss (mL): 10mL Description of Procedure: Indications: This is a 57 year old female with chronic right heel pain, to the plantar heel and achilles tendon, as well as the bone spurs to the dorsal and lateral midfoot despite extensive conservative/nonsurgical management. She continues to have pain and symptoms. She continues to have pain which was really bothering her and affecting her daily activities. Because symptoms persist, she has elected to undergo the surgical procedures. MRI was reviewed pre op. The procedures were discussed with her in great detail, reviewed the possible benefits vs risks and potential complications. Typical post op recovery was reviewed with her. The goals and the expectations were reviewed with her in detail. The consent forms were reviewed with her in detail, and she freely signed them. No guarantees were given or implied. All of her questions were answered. Operative Procedure: The patient was brought back into the operating room. A time out was performed and the patient was properly identified and the surgical plan was confirmed. The patient received 2g of IV Ancef for antibiotic prophylaxis. A well padded pneumatic tourniquet was applied around the right thigh. The patient received general per the anesthesiologist.? The patient was placed on the operating room table in the prone position, with good padding and offloading for all of the bony prominences. She was carefully secured to the operating room table with a safety belt around her waist. The right foot/ankle/leg were scrubbed, prepped, draped in the usual aseptic fashion. The right foot was elevated for 3 minutes and the thigh pneumatic tourniquet was inflated to 300mmHg. Attention was directed to the posterior heel. There was a large palpable exostosis present at the level of the posterior calcaneus consistent with Cedric's deformity as well as retrocalcaneal exostosis, and insertional achilles tendinosis was present as well. A linear incision was made using a 15 blade to the skin of the posterior aspect of the distal Achilles tendon and posterior calcaneus. Careful blunt dissection was completed down through the subcutaneous tissue layer, down to the Achilles tendon and posterior calcaneus.The distal Achilles tendon was incised at the level of the distal midline, and was partially reflected off of the central posterior calcaneus exposing the retrocalcaneal spur and Cedric deformity. The retrocalcaneal spur and the Cedric deformity were resected using a powered sagittal saw and a powered rasp, the resected bone was sent to pathology. Intraoperative fluoroscopy was obtained confirming proper resection of the spur and Cedric deformity. The site was flushed out with copious amounts of normal saline s olution. The Achilles tendon was reattached to the central portion of the posterior calcaneus using 1 Arthrex Speedbridge in standard fashion. 2 pilot supervisor holes were created for the 4.75mm BioComposite Swivelock anchors at the level of 1 cm proximal to the distal insertion of the Achilles tendon and central to each half of the tendon. The pilot supervisor holes were tapped with the 4.75mm tap. The two 4.75mm BioComposite Swivel anchors were inserted. The suture was passed through the Achilles tendon on each side. The 2 distal holes were prepared on the posterior calcaneus distal to the insertion of the Achilles tendon with the drill and then the tap. One suture tail from each of the proximal anchors were retrieved and passed through the 2 SwiveLock anchors. The tension was adjusted to the appropriate tension and the 4.75 mm Swivelock anchors were inserted into the distal prepared bone sites. The suture tails were cut flush with the Swivelock anchors. The Swivelock anchors were flush with the bone. The FiberWire suture from each Swivelock anchor was also passed through the Achilles tendon and tied for extra stability and repair. 3-0 Vicryl was also used to reapproximate the midline Achilles tendon incision. There was excellent repair of the Achilles tendon, with negative Simon test. The surgical site was flushed out with copious amounts of normal saline solution. The subcutaneous tissue layer was reapproximated using 3-0 Vicryl. the skin was reapproximated using 3-0 Nylon. She was then carefully placed in the supine position. She was carefully secured to the operating room table with a safety belt around her waist. The right foot/ankle/leg were scrubbed, prepped, draped in the usual aseptic fashion. Attention was directed to the plantar fascia. A skin incision was made to the medial hindfoot at the level of the origin of the plantar fascia on the inferior calcaneus. Careful dissection was completed down through the subcutaneous tissue layer. A plane was created superiorly and inferiorly around the plantar fascia. There was significant thickening, tightness, and fibrosis of the plantar fascia consistent with chronic plantar fasciitis. The medial 50% of the plantar fascia was released via a plantar fasciotomy. The infracalcaneal spur was identified and was resected using a powered sagittal rasp, resection was confirmed using intraoperative fluoroscopy. The site was flushed out with copious amounts of normal saline solution. The skin was reapproximated using 3-0 Nylon. Attention was directed to the dorsal midfoot at the level of the dorsal medial tarsometatarsal joint where there was a palpable exostosis. A linear longitudinal skin incision was made over te site. Careful dissection was completed down through the subcutaneous tissue to the exostosis. It was hard wh ite bony prominence c/w exostosis. The exostosis was identified and was resected using a bone cutting rongeur and a powered rasp. The resected exostosis was sent to pathology. The site was otherwise healthy and viable. Care was taken to avoid all neurovascular and tendon structures. Attention was directed to the dorsal lateral midfoot at the level of the lateral tarsometatarsal joint where there was a palpable exostosis. A linear longitudinal skin incision was made over te site. Careful dissection was completed down through the subcutaneous tissue to the exostosis. It was hard white bony prominence c/w exostosis. The exostosis was identified and was resected using a bone cutting rongeur and a powered rasp. The resected exostosis was sent to pathology. The site was otherwise healthy and viable. Care was taken to avoid all neurovascular and tendon structures. The pneumatic tourniquet was deflated at 119 minutes, there was immediate return of warmth and perfusion to the foot and to all toes on the foot with normal temperature present. CFT < 2 seconds to all toes. A total of 30mL of 0.5% bupivacaine plain was given as a local nerve block around the surgical site before the surgical started and when completed (20mL before and 10mL at end). A dressing was applied which consisted of Betadine soaked adaptic, 4x4 gauze, Kerlix and ivett bandage, and a well padded below the knee posterior splint with heel offloaded. The patient tolerated the above operative procedure well at the anesthesia well with no complication. The patient was transported to the recovery room with vital signs stable and in good condition. Post operative orders were placed. Post operative instructions were reviewed with her as well as with her who was present with her today. No weightbearing right foot, keep foot elevated for at least 50 minutes of every hour, keep dressing clean, dry and intact. Prescription for percocet 5/325mg was prescribed: 1-2 tabs PO q 6 hours PRN pain for pain control, Augmentin 500/125mg PO q 12 hours, and Apixaban 2.5mg PO twice a day. She is to follow up with me within 1 week or sooner if needed. Grafts/Implants Used: Arthrex Speedbridge Complications None
--- NOTE | 2022-10-09 13:57 | RAD_ITS ---
STUDY: X-RAY - RIGHT FOOT CLINICAL: Female, 57 years old. post op TECHNIQUE: 3 view(s) of the foot. COMPARISON: 05/23/2021 FINDINGS: Postsurgical changes to the posterior plantar calcaneus. Normal visualized subtalar, talonavicular, calcaneocuboid, tarsal and tarsometatarsal articulations. Normal metatarsi. Normal metatarsophalangeal joint of the great toe. Normal tibial and fibular sesamoid bones. Normal interphalangeal joint of the great toe. Normal phalanges of the great toe. Normal second through fifth metatarsophalangeal joints. Normal interphalangeal joints and phalanges of the lesser toes. Fiberglas cast obscures soft tissue and bony detail. RAD/Foot min 3 Views IMPRESSION: Postsurgical changes to the calcaneus. Electronically Signed: Km Ley MD at 8:35 EST ,
== END 2022-10-09 15:30 | disposition home or self-care (01) ==
LOC: SDC 08:18 → AC 08:19
PROVIDERS: Referring Provider Podiatrist; Visit Provider Podiatrist
PROC: (CPT 28119; principal; 2022-10-09 09:45)
DX: M72.2 Plantar fascial fibromatosis (principal); E11.9 Type 2 diabetes mellitus without complications; M77.30 Calcaneal spur, unspecified foot; F41.9 Anxiety disorder, unspecified; F32.9 Major depressive disorder, single episode, unspecified; I10 Essential (primary) hypertension; E07.9 Disorder of thyroid, unspecified
CPT/HCPCS: 27650; 28008; 01472; 73630; 73650; 76000; 82962; 88304; 88305; 88311; J7120; J2405

== ENCOUNTER 2023-01-12 11:30 | Outpatient (RCR) | payer BC, SELFPAY ==
--- NOTE | 2022-12-15 10:50 | HP.PTEVAL_ITS ---
Patient's Visit Information VINCENZO EMERY is a 57 year old F referred to Physical Therapy by Dr. Mg Brooks DPM with a diagnosis of R s/p Plantar fasciotomy, Debride Achilles, and spur resection 10-09-22. Date of Evaluation: 12/15/22 Physical Therapist: FABI Herrera - Visit Plan Frequency: 2x /Week Duration: 4 Weeks Plan: 2X/ week for 4 weeks for R ankle AROM, gastroc sretching, gait training, balance and proprioception, strengthening with HEP. HEP: seated gastroc stretch with towel, seated heel and toe raises, toe scrunches - Subjective Pt had a R S/P Plantar fasciotomy, debridement of the Achilles and spur resectio ns on 10-09-22. She is doing pretty good. She has 3-4/10 pain with walking on it and drove for the first time today. She came out of the boot gradually the week before last. She pretty much does not wear the boot this week. She feels that her walking is slow but she is doing ok. She still has pain and stiffness. She has not done any exercises at home at this point. She has no restrictions at this point. She goes back to the on 12-30-22. 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 No talk on when going back to work. Stairs: she has a few at home. It hurts to bend her foot. She is able to go recip at times with a few steps but if like to the basement she goes 2 feet to a stair. She always uses the wall or the railing. She is nervous about falling. She does not sleep great anymore but not related to her foot. - Pain R achilles pain Pain Intensity (Out of 10): 4 R heel pain Pain Intensity (Out of 10): 3 - Objective Gait: walks with forefoot abd and small step length and decrease stance time on the R LE. R ankle AROM: DF -10, PF 52, INV 15, EV 4. L ankle AROM DF 2, PF 60, INV 15, EV 3. R ankle MMT: DF, PF , EV, and INV 4-/5. L ankle MMT: DF, PF, INV, EV 5/5. R SLB: 1 second. L SLB: 20 sec. girth measurements: R med to lat 26.4, R figure 8 51.8 and met heads 21.5. L 24.6, 50.3, 21.5. Tight R gastroc. scar at the medial heel and achilles scar are a little adhered. Tender to touch over the scar on the dorsal surface the R foot - Balance/Special Test Scores Lower Extremity Functional Score: 44 - Goals Goal 1:: I HEP Goal Time Frame: 4-6 Weeks Goal 2:: Increase R ankle AROM (at time of the eval: R ankle AROM: DF -10, PF 52, INV 15, EV 4. L ankle AROM DF 2, PF 60, INV 15, EV 3) Goal Time Frame: 4-6 Weeks Goal 3:: Be able to walk with increase stride and heel to toe gait pattern with more equal weight bearing on B LE. Goal Time Frame: 4-6 Weeks Goal 4:: Be able to SLB on the R X 20 seconds Goal Time Frame: 4-6 Weeks Goal 5:: Increase R ankle strength to be able to complete 3 X 10 heel and toe raises together B Goal Time Frame: 4-6 Weeks - Rehabilitation Potential Rehabilitation Potential: Good - Anticipated Interventions Patient/Client Instruction: Educate patient on: Condition, Plan of Care For the Purpose of:: To decrease pain, To decrease swelling/inflammation, To increase ROM, To improve nutrient delivery to tissue, To increase oxygenation perfusion, To improve muscle performance and motor function, To improve ability to perform ADL's, To increase tolerance to activity/condition/position, To improve performance and independence with ADL's, To decrease level of supervision to perform tasks, To improve ability of physical actions for home/community/work/leisure, To improve gait and locomotor functions, To improve health of tissue, To decrease soft tissue restriction, To increase flexibility/ROM, To improve balance, To improve safety with gait Therapeutic Exercise to Include: Strength training, Endurance training, Balance training, Postural training, Flexibilty training, Gait and locomotor training, Neuromotor development, Passive ROM, Active ROM For the Purpose of:: To decrease pain, To decrease swelling/inflammation, To increase ROM, To improve nutrient delivery to tissue, To increase oxygenation perfusion, To improve muscle performance and motor function, To improve ability to perform ADL's, To increase tolerance to activity/condition/position, To improve performance and independence with ADL's, To decrease level of supervision to perform tasks, To improve ability of physical actions for home/community/work/leisure, To improve gait and locomotor functions, To improve health of tissue, To decrease soft tissue restriction, To increase flexibility/ROM, To improve balance, To improve safety with gait Functional Training to Include: Gait training For the Purpose of:: To improve gait and locomotor functions, To improve safety with gait Manual Therapy Techniques to Include: Scar massage, Passive ROM, Soft tissue mobilization For the Purpose of:: To decrease pain, To increase ROM, To improve nutrient delivery to tissue, To increase oxygenation perfusion Thank you for the opportunity to evaluate your patient. For Medicare and Medicare HMO plans, please review the plan of care and approve it. It will need to be FAXED BACK to us at [phone] for Medicare purposes. For Medicare only, by signing this I certify the plan of care. Please let me know if there are questions or concerns regarding this plan of care. Physician Signature: Date:
--- NOTE | 2023-01-12 11:47 | HP.PTDCSUM ---
It has been my pleasure to treat VINCENZO EMERY referred by Dr. Mg Brooks, AMISHA, with the diagnosis of R s/p Plantar fasciotomy, Debride Achilles, and spur resection 10-09-22 for a total of 9 visit(s). Discharge Date: 01/12/23 Please see the following information for a summary of their discharge status. Subjective: Pt reports that she feels ok to continue on her own. She is sore if she is on it too long but other than that she feels ok. R achilles pain Pain Intensity (Out of 10): 1 R heel pain Pain Intensity (Out of 10): 1 % Improvement: 90 Objective/Function: B heel and toe raises. Gait: walks with slight increase in stance time on the L but much improved. Ankle AROM R ankle AROM: DF 10, PF 52, INV 22, EV 9. SLB R 20 sec. Pt did not want to exercise today and will stretch at home. Goal 1:: I HEP Goal Progress: Goal Met Goal 2:: Increase R ankle AROM (at time of the eval: R ankle AROM: DF -10, PF 52, INV 15, EV 4. L ankle AROM DF 2, PF 60, INV 15, EV 3) Goal Progress: Goal Met Goal 3:: Be able to walk with increase stride and heel to toe gait pattern with more equal weight bearing on B LE. Goal Progress: Progressing Goal 4:: Be able to SLB on the R X 20 seconds Goal Progress: Goal Met Goal 5:: Increase R ankle strength to be able to complete 3 X 10 heel and toe raises together B Goal Progress: Goal Met Plan: 2X/ week for 4 weeks for R ankle AROM, gastroc stretching, gait training, balance and proprioception, strengthening with HEP Discharge Comments: DC PT to HEP If there are questions or concerns regarding this patient's physical therapy, please feel free to call me at [phone]. Thank you for the referral of this patient. Sincerely, Leticia Mehta, MPT Balance/Gait/Functional tests - Balance/Special Test Scores Lower Extremity Functional Score: 72
== END 2023-01-12 19:00 | disposition home or self-care (01) ==
LOC: PT 11:30
PROVIDERS: Referring Provider Podiatrist; Visit Provider Podiatrist
DX: Z47.89 Encounter for other orthopedic aftercare (principal)
CPT/HCPCS: 97110; 97161; 97530

== ENCOUNTER → 2023-01-13 | Outpatient (CLI) | payer BC, SELFPAY ==
[2023-01-13 10:50] LABS: Hemoglobin A1c 6.8 % (3.8-5.6)
[2023-01-13 11:09] LABS: BUN 17 mg/dL (7-18); Creatinine, Serum 0.84 mg/dL (0.55-1.02); EST Glomerular Filtration Rate 74 mL/min (>60); Glucose 143 mg/dL (74-106)
[2023-01-13 11:10] LABS: ALB/GLOB Ratio 1.2 RATIO (0.9-2.4); AST(SGOT) 22 U/L (15-37); Alanine Aminotransfer ALT/SGPT 38 U/L (13-56); Albumin, Serum 3.7 g/dL (3.2-5.0); Alkaline Phosphatase 129 U/L (45-117); Anion Gap 8 (5-15); BUN/Creat Ratio 20.2 RATIO (10-20); Calcium,Total 9.2 mg/dL (8.5-10.1); Chloride 106 mmol/L (98-107); Cholesterol 113 mg/dL (200); Est Glom Filt Rate - Afr Amer 89 mL/min (>60); Globulin 3.2 g/dL (2.2-4.2); High Density Lipoprotein 41 mg/dL; Potassium 3.6 mmol/L (3.5-5.1); Protein, Total 6.9 g/dL (6.4-8.2); Sodium Level 141 mmol/L (136-145); Triglycerides 206 mg/dL; Very Low Density Lipoprotein 41 mg/dL (5-40)
== END | disposition home or self-care (01) ==
LOC: MFPLAB 08:28
PROVIDERS: Visit Provider Internal Medicine Endocrinology, Diabetes & Metabolism
DX: E11.9 Type 2 diabetes mellitus without complications (principal); E78.2 Mixed hyperlipidemia
CPT/HCPCS: 36415; 80053; 80061; 83036

== ENCOUNTER → 2023-04-15 | Outpatient (CLI) | payer BC, SELFPAY ==
[2023-04-15 08:34] LABS: ALB/GLOB Ratio 1.1 RATIO (0.9-2.4); AST(SGOT) 19 U/L (15-37); Alanine Aminotransfer ALT/SGPT 32 U/L (13-56); Albumin, Serum 3.8 g/dL (3.2-5.0); Alkaline Phosphatase 141 U/L (45-117); Anion Gap 7 (5-15); BUN 16 mg/dL (7-18); BUN/Creat Ratio 21.7 RATIO (10-20); Calcium,Total 9.1 mg/dL (8.5-10.1); Chloride 108 mmol/L (98-107); Cholesterol 108 mg/dL (200); Creatinine, Serum 0.74 mg/dL (0.55-1.02); EST Glomerular Filtration Rate 86 mL/min (>60); Est Glom Filt Rate - Afr Amer 104 mL/min (>60); Globulin 3.5 g/dL (2.2-4.2); Glucose 158 mg/dL (74-106); High Density Lipoprotein 44 mg/dL; Potassium 4.2 mmol/L (3.5-5.1); Protein, Total 7.3 g/dL (6.4-8.2); Sodium Level 141 mmol/L (136-145); Triglycerides 171 mg/dL; Very Low Density Lipoprotein 34 mg/dL (5-40)
[2023-04-15 09:30] LABS: Microalbumin,Random Urine 29.4 mg/L (NO RANGE EST.); Microalbumin:Creatinine Ratio 13.9 mg/g CRE (<30 mg/g CRE)
== END | disposition home or self-care (01) ==
LOC: LAB 07:23
PROVIDERS: Referring Provider Internal Medicine Endocrinology, Diabetes & Metabolism; Visit Provider Internal Medicine Endocrinology, Diabetes & Metabolism
DX: E78.2 Mixed hyperlipidemia (principal); Z79.84 Long term (current) use of oral hypoglycemic drugs
CPT/HCPCS: 36415; 80053; 80061; 82043; 82570; 83036

== ENCOUNTER → 2023-07-10 | Outpatient (CLI) | payer BC, SELFPAY ==
[2023-07-10 10:46] LABS: ALB/GLOB Ratio 1.1 RATIO (0.9-2.4); AST(SGOT) 23 U/L (15-37); Alanine Aminotransfer ALT/SGPT 35 U/L (13-56); Albumin, Serum 3.8 g/dL (3.2-5.0); Alkaline Phosphatase 118 U/L (45-117); Anion Gap 7 (5-15); BUN 12 mg/dL (7-18); BUN/Creat Ratio 14.3 RATIO (10-20); Calcium,Total 8.9 mg/dL (8.5-10.1); Chloride 105 mmol/L (98-107); Creatinine, Serum 0.84 mg/dL (0.55-1.02); EST Glomerular Filtration Rate 74 mL/min (>60); Est Glom Filt Rate - Afr Amer 90 mL/min (>60); Globulin 3.4 g/dL (2.2-4.2); Glucose 138 mg/dL (74-106); Potassium 4.3 mmol/L (3.5-5.1); Protein, Total 7.2 g/dL (6.4-8.2); Sodium Level 140 mmol/L (136-145)
[2023-07-10 11:39] LABS: Hemoglobin A1c 6.9 % (3.8-5.6)
== END | disposition home or self-care (01) ==
LOC: LAB 09:46
PROVIDERS: Referring Provider Internal Medicine Endocrinology, Diabetes & Metabolism; Visit Provider Internal Medicine Endocrinology, Diabetes & Metabolism
DX: E04.2 Nontoxic multinodular goiter (principal); Z79.84 Long term (current) use of oral hypoglycemic drugs
CPT/HCPCS: 36415; 80053; 83036; 84443

== ENCOUNTER → 2023-09-07 | Outpatient (CLI) | payer BC, SELFPAY ==
--- NOTE | 2023-09-07 16:46 | MRI_ITS ---
STUDY: MRI LEFT ANKLE WITHOUT CONTRAST REASON FOR EXAM: Female, 58 years old. Heel spurs, plantar fasciitis. TECHNIQUE: Standardized fat and water weighted pulse sequences were obtained in all 3 orthogonal planes. COMPARISON: Left foot MRI dated 06/28/2021. FINDINGS: Normal subcutis adipose space. There is minimal posterior tibialis tenosynovitis. Intact posterior tibialis tendon. Normal flexor digitorum longus tendon. Normal flexor hallucis longus tendon. Normal peroneus longus and brevis tendons. Normal tibialis anterior tendon. Normal extensor hallucis longus tendon. Normal extensor digitorum longus tendons. Normal Achilles tendon and teno-osseous insertion. There is a persistent 2.1 x 1.0 x 0.8 cm plantar fibroma in the plantar fascia beneath the base of the second metatarsal bone (sagittal T1 series 5 image 3). There are moderate-sized plantar and posterior calcaneal spurs. There is unchanged moderate thickening and intrasubstance degeneration of the central cord of plantar fascia at its calcaneal attachment (sagittal T1 series 5 images 9-10). Normal intrinsic muscles of the rearfoot. Normal distal tibiofibular syndesmotic ligamentous complex. Normal lateral ligamentous complex. Normal subtalar ligaments and sinus tarsi. Normal deltoid ligamentous complex. Normal plantar calcaneonavicular (spring) ligament. Normal tibiotalar articulation. Normal talar dome. There is a small posterior subtalar joint effusion. Normal talonavicular articulation. Normal calcaneocuboid articulation. Normal navicular-cuneiform articulations. 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 Moderate-sized plantar and posterior calcaneal spurs. Unchanged moderate thickening and intrasubstance degeneration of the central cord of plantar fascia at its calcaneal attachment. Minimal posterior tibialis tenosynovitis. Small posterior subtalar joint effusion. Electronically Signed: Kang Burns MD at 9:02 EDT ,
== END | disposition home or self-care (01) ==
PROVIDERS: Referring Provider Podiatrist; Visit Provider Podiatrist
DX: M72.2 Plantar fascial fibromatosis (principal); M77.32 Calcaneal spur, left foot; M76.62 Achilles tendinitis, left leg
CPT/HCPCS: 73721

== ENCOUNTER → 2023-10-09 | Outpatient (CLI) | payer BC, SELFPAY ==
[2023-10-09 09:54] LABS: ALB/GLOB Ratio 1.1 RATIO (0.9-2.4); AST(SGOT) 18 U/L (15-37); Alanine Aminotransfer ALT/SGPT 32 U/L (13-56); Albumin, Serum 3.6 g/dL (3.2-5.0); Alkaline Phosphatase 104 U/L (45-117); Anion Gap 3 (5-15); BUN 14 mg/dL (7-18); BUN/Creat Ratio 15.7 RATIO (10-20); Calcium,Total 8.7 mg/dL (8.5-10.1); Chloride 110 mmol/L (98-107); Cholesterol 101 mg/dL (200); Creatinine, Serum 0.89 mg/dL (0.55-1.02); EST Glomerular Filtration Rate 69 mL/min (>60); Est Glom Filt Rate - Afr Amer 83 mL/min (>60); Globulin 3.4 g/dL (2.2-4.2); Glucose 135 mg/dL (74-106); High Density Lipoprotein 44 mg/dL; Potassium 4.3 mmol/L (3.5-5.1); Sodium Level 141 mmol/L (136-145); Triglycerides 110 mg/dL; Very Low Density Lipoprotein 22 mg/dL (5-40)
== END | disposition home or self-care (01) ==
LOC: LAB 08:31
PROVIDERS: Referring Provider Internal Medicine Endocrinology, Diabetes & Metabolism; Visit Provider Internal Medicine Endocrinology, Diabetes & Metabolism
DX: E78.2 Mixed hyperlipidemia (principal); Z79.84 Long term (current) use of oral hypoglycemic drugs
CPT/HCPCS: 36415; 80053; 80061; 83036

== ENCOUNTER 2023-11-12 05:48 | Day surgery (SDC) | payer BC, SELFPAY ==
[2023-11-05 16:44] LABS: Absolute Lymphocyte Count 1.26 X10^3/uL (0.83-4.51); Absolute Neutrophil Count 2.4 X10^3/uL (2.0-7.7); Basophil# 0.02 X10^3/uL; Basophil% 0.5 % (0-1); Eosinophil# 0.11 X10^3/uL; Eosinophils% 2.5 % (0-5); Hematocrit 43.4 % (37-47); Hemoglobin 13.4 g/dL (12.0-15.0); Lymphocyte # 1.26 X10^3/ul (0.83-4.51); Lymphocyte % 29.1 % (19-41); Mean Corp Hgb Conc 30.9 g/dL (32-36); Mean Corpuscular Volume 84.3 fL (81-99); Mean Platelet Vol. 9.6 fl (6.2-12.0); Monocyte# 0.54 X10^3/uL; Monocyte% 12.5 % (0-10); NRBC Flagged by Analyzer 0 % (0-5); Neutrophil % 55.4 % (47-70); Platelet Count 307 K/mm3 (150-450); RBC Distribution Width CV 15.7 % (11.6-14.6); RBC Distribution Width SD 48.7 fl (35.1-43.9); Red Blood Count 5.15 M/mm3 (4.2-5.4); White Blood Count 4.3 K/mm3 (4.4-11.0)
--- OUTSIDE RECORDS SUMMARY | 2023-11-12 05:59 | XMS RPT_ITS | CCD ---
Author Name Unknown Address [id number] [place] [address] Organization [facility] Care Team Providers Care Knot Cutter Name Role Phone LindseyreeceLinsey Unavailable Cristobal Ewing Unavailable DARRELL BALLESTEROS Primary Care Unavailable DARRELL BALLESTEROS Attending Unavailable CAPONE, JHON PA-C Consulting Unavailable DARRELL BALLESTEROS Admitting Unavailable PROVIDER, UNKNOWN Consulting Unavailable CAPONE, JHON PA-C Consulting Unavailable VELEZ, RAMAN PAC Admitting Unavailable VELEZ, RAMAN PAC Primary Care Unavailable VELEZ, RAMAN PAC Attending Unavailable PROVIDER, UNKNOWN Consulting Unavailable CAPONE, JHON PA-C Consulting Unavailable MELANIE, LAINA G Attending Unavailable STORMYETEPERFECTO, LAINA G Admitting Unavailable WIETECHA, LAINA G Primary Care Unavailable PROVIDER, UNKNOWN Consulting Unavailable VELEZ, RAMAN PAC Admitting Unavailable VELEZ, RAMAN PAC Primary Care Unavailable VELEZ, RAMAN PAC Attending Unavailable CAPONE, JHON PA-C Consulting Unavailable PROVIDER, UNKNOWN Consulting Unavailable ESTELITA, JHON PA-C Consulting Unavailable STORMYETECHA, LAINA G Primary Care Unavailable STORMYETEPERFECTO, LAINA G Attending Unavailable WIETECHA, LAINA G Admitting Unavailable PROVIDER, UNKNOWN Consulting Unavailable CAPONE, JHON PA-C Consulting Unavailable WIETECHA, LAINA G Primary Care Unavailable STORMYETEPERFECTO LAINA G Attending Unavailable STORMYETEPERFECTO, LAINA G Admitting Unavailable PROVIDER, UNKNOWN Consulting Unavailable CAPONE, JHON PA-C Consulting Unavailable WIETEPERFECTO, LAINA G Primary Care Unavailable WIETEPERFECTO, LAINA G Attending Unavailable WIETEPERFECTO, LAINA G Admitting Unavailable PROVIDER, UNKNOWN Consulting Unavailable Nahid Henson PA-C Primary Care Provider RUPALI SAGE Referring Unavailable NAHID HENSON Primary Care Unavailable RUPALI SAGE Attending Unavailable NAHID HENSON Primary Care Unavailable Estelita PANDA, Jhon Rothman Unavailable Orthopedic Provider Unavailable Unavailable ANGEL Diabetic Counseling, . Unavailable Neuro-Surgery Provider Unavailable Unavailab martha Sherwood MD ([place]), Dr. Kyle Unavailable Livia MCCAIN, Dr. Salas Unavailable Endocrinology Provider Unavailable Unavailab martha Bridges MD, Yolanda Ignacio Unavailable Natividad PANDA, Nahid Aguilar Unavailable Lucy BILLING SERVICES MANAGER, Madison Unavailable Mary Benito Unavailable Donis GIMENEZ, Pam Unavailable Vess BILLING SERVICES MANAGER, Nehiwote L Unavailable Unavailable Nereyda GIMENEZ, Violet Junior Unavailable Unavailable Tegan BILLING SERVICES MANAGER, Yolanda Bullard Unavailable Unavailab martha Valladares LPN, Naa Unavailable Unavailarcelia Kebede PA-C, Patti Rothman Unavailable Breezy GIMENEZ, Nahid Shirley Unavailable Unavaila moira Zabala BILLING SERVICES MANAGER, Karen Unavailable Unavailable Yusuf BILLING SERVICES MANAGER, Chely Unavailable Unavailable Gwendolyn BILLING SERVICES MANAGER, Valerie Unavailable Unavailable Kwame BILLING SERVICES MANAGER, Amanda Unavailable Unavailable Ganesh SIBLEY, Avril Unavailable Unavailable Girish PANDA, Wiliam Ignacio Unavailable Deng SIBLEY, Chely Unavailable Unavailable Piyush SIBLEY, Itzel Unavailable Unavailable Unavailable Unavailable Allergies Allergy Classification Reported Allergen(s) Allergy Type Date of Onset Reaction(s) Facility NEGATED: Highlighted row has been ruled out! (1 source) 01-28-2022 [facility] [employer] [employer]. NEGATED: Highlighted row has been ruled out! (1 source) [facility] [employer] [facility] [employer]. Medications Current Medications Medication Drug Class(es) Dates Sig (Normalized) Sig (Original) ALPRAZolam 0.25 mg oral tablet (1 source) Benzodiazepine Start: 01-28-2022 ascorbic acid 1000 mg oral tablet (3 sources) Vitamin C Completed/Discontinued Medications Medication Drug Class(es) Dates Sig (Normalized) Sig (Original) amoxicillin 500 mg oral capsule (1 source) Penicillin-class Antibacterial Start: 01-22-2011 End: 02-01-2011 amoxicillin 875 mg / clavulanate 125 mg oral tablet (2 sources) Penicillin-class Antibacterial Start: 01-28-2022 End: 02-07-2022 Problems Active Problems Problem Classification Problem Date Documented Da te Episodic/Chronic Abdominal pain (11 sources) Abdominal pain; Translations: [Unspecified abdominal pain] 08-13-2016 Episodic Acute bronchitis (2 sources) Acute bacterial bronchitis; Translations: [Acute bronchitis due to other specified organisms] 08-13-2016 Episodic Administrative/social admission (6 sources) Issue of repeat prescriptions 11-24-2016 Episodic Anxiety disorders (4 sources) Anxiety; Translations: [Anxiety disorder, unspecified] 10-19-2023 Chronic Biliary tract disease (2 sources) Unspecified disorder of gallbladder 08-13-2016 Episodic Cardiac dysrhythmias (2 sources) Palpitations; Translations: [Palpitations] 08-13-2016 Episodic Chronic obstructive 03-12-2020 14:54-0400 Systolic blood pressure 127 mm[Hg] Tex Wan LPN [facility]. 12-13-2019 14:45-0500 Body height 168.91 cm Violet Dawn RN [facility]. 12-13-2019 14:45-0500 Body mass index (BMI) [Ratio] 31.88 kg/m2 Violet Dawn RN [facility]. 12-13-2019 14:45-0500 Body surface area Derived from formula 2.01 m2 Violet Dawn RN [facility]. 12-13-2019 14:45-0500 Body temperature 98 [degF] Violet Dawn RN [facility]. 12-13-2019 14:45-0500 Body weight 90.95 kg Violet Dawn RN [facility]. 12-13-2019 14:45-0500 Diastolic blood pressure 76 mm[Hg] Violet Dawn RN [facility]. 12-13-2019 14:45-0500 Heart rate 95 /min Violet Dawn RN [facility] [employer] 12-13-2019 14:45-0500 Systolic blood pressure 133 mm[Hg] Violet Dawn RN [facility] [facility]. 09-06-2019 14:48-0400 Body height 168.91 cm Violet Dawn RN [facility]. 09-06-2019 14:48-0400 Body mass index (BMI) [Ratio] 32.39 kg/m2 Violet Dawn RN [facility]. 09-06-2019 14:48-0400 Body surface area Derived from formula 2.03 m2 Violet Dawn RN [facility]. 09-06-2019 14:48-0400 Body temperature 98.2 [degF] Violet Dawn RN [facility]. 09-06-2019 14:48-0400 Body weight 92.4 kg Violet Dawn RN [facility]. 09-06-2019 14:48-0400 Diastolic blood pressure 70 mm[Hg] Violet Dawn RN [facility]. 09-06-2019 14:48-0400 Heart rate 87 /min Violet Dawn RN [facility]. 09-06-2019 14:48-0400 Systolic blood pressure 125 mm[Hg] Violet Dawn RN [facility]. 06-06-2019 14:39-0400 Body height 168.91 cm Tex Crawford Vess BILLING SERVICES MANAGER [facility]. 06-06-2019 14:39-0400 Body mass index (BMI) [Ratio] 32.27 kg/m2 Neilee L Vess BILLING SERVICES MANAGER [facility].; [facility]. 06-06-2019 14:39-0400 Body surface area Derived from formula 2.02 m2 Neilee L Vess BILLING SERVICES MANAGER [employer] 06-06-2019 14:39-0400 Body weight 92.08 kg Neilee L Vess BILLING SERVICES MANAGER [employer]. 06-06-2019 14:39-0400 Diastolic blood pressure 74 mm[Hg] Neilee L Vess BILLING SERVICES MANAGER [employer]. 06-06-2019 14:39-0400 Heart rate 90 /min Neilee L Vess BILLING SERVICES MANAGER [employer]. 06-06-2019 14:39-0400 Systolic blood pressure 122 mm[Hg] Neilee L Vess BILLING SERVICES MANAGER [employer]. 03-07-2019 10:55-0400 Body height 168.91 cm Neilee L Vess BILLING SERVICES MANAGER [employer]. 03-07-2019 10:55-0400 Body mass index (BMI) [Ratio] 32.91 kg/m2 Neilee L Vess BILLING SERVICES MANAGER [employer] [employer]. 03-07-2019 10:55-0400 Body surface area Derived from formula 2.04 m2 Neilee L Vess BILLING SERVICES MANAGER [employer]. 03-07-2019 10:55-0400 Body weight 93.9 kg Neilee L Vess BILLING SERVICES MANAGER [facility]. 03-07-2019 10:55-0400 Diastolic blood pressure 74 mm[Hg] Neilee L Vess BILLING SERVICES MANAGER [employer]. 03-07-2019 10:55-0400 Heart rate 86 /min Neilee L Vess BILLING SERVICES MANAGER [employer]. 03-07-2019 10:55-0400 Systolic blood pressure 128 mm[Hg] Neilee L Vess BILLING SERVICES MANAGER [facility].; [facility]. 01-18-2019 09:59-0400 Body height 168.91 cm Violet Dawn RN [facility]. 01-18-2019 09:59-0400 Body mass index (BMI) [Ratio] 32.46 kg/m2 Violet Dawn RN [facility]. 01-18-2019 09:59-0400 Body surface area Derived from formula 2.03 m2 Violet Dawn RN [facility]. 01-18-2019 09:59-0400 Body temperature 97.5 [degF] Violet Dawn RN [facility]. 01-18-2019 09:59-0400 Body weight 92.63 kg Violet Dawn RN [facility]. 01-18-2019 09:59-0400 Diastolic blood pressure 89 mm[Hg] Violet Dawn RN [facility]. 01-18-2019 09:59-0400 Heart rate 92 /min Violet Dawn RN [facility]. 01-18-2019 09:59-0400 Systolic blood pressure 153 mm[Hg] Violet Dawn RN [facility]. 11-16-2018 12:07-0500 Body height 168.91 cm Nahid Henson [employer] Work Phone: [facility]. 11-16-2018 12:07-0500 Body mass index (BMI) [Ratio] 31.51 kg/m2 Nahid Denny [employer] PA-C Work Phone: [facility]. 11-16-2018 12:07-0500 Body surface area Derived from formula 2 m2 Nahid D [employer] PA-C Work Phone: [facility].; [facility]. 11-16-2018 12:07-0500 Body temperature 98.6 [degF] Nahid Aguilar [employer] PA-C Work Phone: [facility].; [facility]. 11-16-2018 12:07-0500 Body weight 89.9 kg Nahid Aguilar [employer] PA-C Work Phone: [facility].; [facility]. 11-16-2018 12:07-0500 Diastolic blood pressure 92 mm[Hg] Nahid Aguilar [employer] PA-C Work Phone: [facility]. 11-16-2018 12:07-0500 Heart rate 111 /min Nahid Denny [employer] PA-C Work Phone: [facility].; [facility]. 11-16-2018 12:07-0500 Systolic blood pressure 147 mm[Hg] Nahid D [employer] PA-C Work Phone: [facility].; [facility]. 08-18-2018 14:59-0400 Body height 168.91 cm Violet Dawn RN [facility]. 08-18-2018 14:59-0400 Body mass index (BMI) [Ratio] 31.43 kg/m2 Violet Dawn RN [facility]. 08-18-2018 14:59-0400 Body surface area Derived from formula 2 m2 Violet Dawn RN [facility]. 08-18-2018 14:59-0400 Body temperature 98.1 [degF] Violet Dawn RN [facility]. 08-18-2018 14:59-0400 Body weight 89.68 kg Violet Dawn RN [facility].; [facility]. 08-18-2018 14:59-0400 Diastolic blood pressure 85 mm[Hg] Violet Dawn RN [facility]. 08-18-2018 14:59-0400 Heart rate 87 /min Violet Dawn RN [facility]. 08-18-2018 14:59-0400 Systolic blood pressure 140 mm[Hg] Violet Dawn RN [facility] [employer] [employer] 05-09-2018 13:22-0400 Body height 168.91 cm Violet Dawn RN [facility]. 05-09-2018 13:22-0400 Body mass index (BMI) [Ratio] 30.3 kg/m2 Violet Dawn RN [facility]. 05-09-2018 13:22-0400 Body surface area Derived from formula 1.97 m2 Violet Dawn RN [facility]. 05-09-2018 13:22-0400 Body temperature 98.7 [degF] Violet Dawn RN [facility]. 05-09-2018 13:22-0400 Body weight 86.46 kg Violet Dawn RN [facility]. 05-09-2018 13:22-0400 Diastolic blood pressure 83 mm[Hg] Violet Dawn RN [facility]. 05-09-2018 13:22-0400 Heart rate 110 /min Violet Dawn RN [facility]. 05-09-2018 13:22-0400 Systolic blood pressure 136 mm[Hg] Violet Dawn RN [facility]. 02-09-2018 15:090400 Body height 168.91 cm Violet Dawn RN [facility]. 02-09-2018 15:090400 Body mass index (BMI) [Ratio] 31.46 kg/m2 Violet Dawn RN [facility]. 02-09-2018 15:090400 Body surface area Derived from formula 2 m2 Violet Dawn RN [facility]. 02-09-2018 15:09-0400 Body temperature 98.5 [degF] Violet Dawn RN [facility] [employer] 02-09-2018 15:09-0400 Body weight 89.77 kg Violet Dawn RN [facility] [facility] [employer] 02-09-2018 15:09-0400 Diastolic blood pressure 81 mm[Hg] Violet Dawn RN [facility] [facility]. 02-09-2018 15:09-0400 Heart rate 85 /min Violet Dawn RN [facility]. 02-09-2018 15:090400 Systolic blood pressure 135 mm[Hg] Violet Dawn RN [facility]. 11-11-2017 15:19-0500 Body height 168.91 cm Violet Dawn RN [facility]. 11-11-2017 15:19-0500 Body mass index (BMI) [Ratio] 29.59 kg/m2 Violet Dawn RN [facility]. 11-11-2017 15:19-0500 Body surface area Derived from formula 1.95 m2 Violet Dawn RN [facility]. 11-11-2017 15:19-0500 Body temperature 98.2 [degF] Violet Dawn RN [facility]. 11-11-2017 15:19-0500 Body weight 84.41 kg Violet Dawn RN [facility]. 11-11-2017 15:19-0500 Diastolic blood pressure 87 mm[Hg] Violet Dawn RN [employer]. 11-11-2017 15:19-0500 Heart rate 93 /min Violet Dawn RN [facility]. 11-11-2017 15:19-0500 Systolic blood pressure 129 mm[Hg] Violet Dawn RN [facility]. 08-12-2017 11:33-0400 Body height 168.91 cm Violet Dawn RN [facility]. 08-12-2017 11:33-0400 Body mass index (BMI) [Ratio] 31.05 kg/m2 Violet Dawn RN [facility]. 08-12-2017 11:33-0400 Body surface area Derived from formula 1.99 m2 Violet Dawn RN [facility]. 08-12-2017 11:33-0400 Body temperature 97.9 [degF] Violet Dawn RN [facility]. 08-12-2017 11:33-0400 Body weight 88.59 kg Violet Dawn RN [facility]. 08-12-2017 11:33-0400 Diastolic blood pressure 79 mm[Hg] Violet Dawn RN [facility]. 08-12-2017 11:33-0400 Heart rate 81 /min Violet Dawn RN [facility]. 08-12-2017 11:33-0400 Systolic blood pressure 118 mm[Hg] Violet Dawn RN [employer]. 06-10-2017 07:29-0400 BMI (Body Mass Index) 33.84 kg/m2 Cristobal MCKEON [facility] Work Phone: 06-10-2017 07:29-0400 Body Temperature 97.7 [degF] Cristobal MCKEON [facility] Work Phone: 06-10-2017 07:29-0400 BP Diastolic 86 mm[Hg] Cristobal MCKEON [facility] Work Phone: 06-10-2017 07:29-0400 BP Systolic 137 mm[Hg] Cristobal Montalvo [facility] Work Phone: 06-10-2017 07:29-0400 Height 165.1 cm Cristobal Montalvo [facility] Work Phone: 06-10-2017 07:29-0400 Pulse (Heart Rate) 77 /min [facility] Work Phone: 06-10-2017 07:29-0400 Respiratory Rate 20 /min Cristobal LOGAN [facility] Work Phone: 06-10-2017 07:29-0400 Weight 92.26 kg Cristobal MCKEON [facility] Work Phone: 05-17-2017 14:59-0400 Body height 168.91 cm Violet Dawn RN [facility] [facility]. 05-17-2017 14:59-0400 Body mass index (BMI) [Ratio] 32.89 kg/m2 Violet Dawn RN [facility]. 05-17-2017 14:59-0400 Body surface area Derived from formula 2.04 m2 Violet Dawn RN [facility]. 05-17-2017 14:59-0400 Body temperature 98.5 [degF] Violet Dawn RN [facility]. 05-17-2017 14:59-0400 Body weight 93.85 kg Violet Dawn RN [facility]. 05-17-2017 14:59-0400 Diastolic blood pressure 73 mm[Hg] Violet Dawn RN [facility]. 05-17-2017 14:59-0400 Heart rate 84 /min Violet Dawn RN [facility]. 05-17-2017 14:59-0400 Systolic blood pressure 120 mm[Hg] Violet Dawn RN [facility]. 04-07-2017 10:40-0400 Body height 168.91 cm Violet Dawn RN [facility]. 04-07-2017 10:40-0400 Body mass index (BMI) [Ratio] 31.73 kg/m2 Violet Dwan RN [facility]. 04-07-2017 10:40-0400 Body surface area Derived from formula 2.01 m2 Violet Dawn RN [facility]. 04-07-2017 10:40-0400 Body temperature 98.5 [degF] Violet Dawn RN [facility]. 04-07-2017 10:40-0400 Body weight 90.54 kg Violet Dawn RN [facility]. 04-07-2017 10:40-0400 Diastolic blood pressure 84 mm[Hg] Violet Dawn RN [facility]. 04-07-2017 10:40-0400 Heart rate 91 /min Violet Dawn RN [facility]. 04-07-2017 10:40-0400 Systolic blood pressure 152 mm[Hg] Violet Dawn RN [facility]. 02-15-2017 15:05-0400 Body height 168.91 cm Violet Dawn RN [facility]. 02-15-2017 15:05-0400 Body mass index (BMI) [Ratio] 33.12 kg/m2 Violet Dawn RN [facility]. 02-15-2017 15:05-0400 Body surface area Derived from formula 2.05 m2 Violet Dawn RN [facility]. 02-15-2017 15:05-0400 Body temperature 98.7 [degF] Violet Dawn RN [facility]. 02-15-2017 15:05-0400 Body weight 94.48 kg Violet Dawn RN [facility]. 02-15-2017 15:05-0400 Diastolic blood pressure 77 mm[Hg] Violet Dawn RN [facility]. 02-15-2017 15:05-0400 Heart rate 75 /min Violet Dawn RN [facility]. 02-15-2017 15:05-0400 Systolic blood pressure 124 mm[Hg] Violet Dawn RN [facility]. 08-13-2016 15:24-0400 Body height 168.91 cm Violet Dawn RN [facility]. 08-13-2016 15:24-0400 Body mass index (BMI) [Ratio] 33.39 kg/m2 Violet Dawn RN [facility]. 08-13-2016 15:24-0400 Body surface area Derived from formula 2.05 m2 Violet Dawn RN [facility]. 08-13-2016 15:24-0400 Body temperature 98.2 [degF] Violet Dawn RN [facility]. 08-13-2016 15:24-0400 Body weight 95.26 kg Violet Dawn RN [facility]. 08-13-2016 15:24-0400 Diastolic blood pressure 77 mm[Hg] Violet Dawn RN [facility]. 08-13-2016 15:24-0400 Heart rate 83 /min Violet Dawn RN [facility]. 08-13-2016 15:24-0400 Systolic blood pressure 125 mm[Hg] Violet Dawn RN [facility]. 06-01-2016 09:38-0400 Height 165.1 cm Cristobal Ewing [facility] Work Phone: 05-13-2016 11:57-0400 Body height 168.91 cm Violet Dawn RN [employer] 05-13-2016 11:57-0400 Body mass index (BMI) [Ratio] 34.01 kg/m2 Violet Dawn RN [employer] 05-13-2016 11:57-0400 Body surface area Derived from formula 2.07 m2 Violet Dawn RN [facility]. 05-13-2016 11:57-0400 Body temperature 98.6 [degF] Violet Dawn RN [facility]. 05-13-2016 11:57-0400 Body weight 97.03 kg Violet Dawn RN [employer]. 05-13-2016 11:57-0400 Diastolic blood pressure 91 mm[Hg] Violet Dawn RN [employer]. 05-13-2016 11:57-0400 Heart rate 83 /min Violet Dawn RN [employer]. 05-13-2016 11:57-0400 Systolic blood pressure 141 mm[Hg] Violet Dawn RN [employer]. 03-20-2016 08:47-0400 Body height 168.91 cm Nahid Tijerina RN [facility]. 03-20-2016 08:47-0400 Body mass index (BMI) [Ratio] 33.7 kg/m2 Nahid Tijerina RN [facility] [employer] 03-20-2016 08:47-0400 Body surface area Derived from formula 2.06 m2 Nahid Tijerina RN [facility]. 03-20-2016 08:47-0400 Body weight 96.16 kg Nahid Tijerina RN [facility] [facility]. 03-20-2016 08:47-0400 Diastolic blood pressure 91 mm[Hg] [facility]. 03-20-2016 08:47-0400 Heart rate 71 /min Nahid [facility]ijerina [facility]. 03-20-2016 08:47-0400 Systolic blood pressure 158 mm[Hg] Nahid Tijerina RN [employer] 10-29-2015 14:59-0500 Body height 168.91 cm Jhon Capone PA-C Work Phone: [facility] 10-29-2015 14:59-0500 Body mass index (BMI) [Ratio] 33.7 kg/m2 Jhon Capone PA-C Work Phone: [facility] 10-29-2015 14:59-0500 Body surface area Derived from formula 2.06 m2 Jhon Capone PA-C Work Phone: [employer]. 10-29-2015 14:59-0500 Body weight 96.16 kg Jhon Capone PA-C Work Phone: [facility] 10-29-2015 14:59-0500 Diastolic blood pressure 68 mm[Hg] Jhon Capone PA-C Work Phone: [facility] 10-29-2015 14:59-0500 Heart rate 74 /min Jhon Capone PA-C Work Phone: [employer] 10-29-2015 14:59-0500 Systolic blood pressure 112 mm[Hg] Jhon Capone PA-C Work Phone: [employer]. 10-09-2015 17:16-0500 Body height 168.91 cm Violet Dawn RN [employer]. 10-09-2015 17:16-0500 Body mass index (BMI) [Ratio] 34.34 kg/m2 Violet Dawn RN [employer]. 10-09-2015 17:16-0500 Body surface area Derived from formula 2.08 m2 Violet Dawn RN [employer]. 10-09-2015 17:16-0500 Body temperature 97.9 [degF] Violet Dawn RN [employer]. 10-09-2015 17:16-0500 Body weight 97.98 kg Violet Dawn RN [employer]. 10-09-2015 17:16-0500 Diastolic blood pressure 68 mm[Hg] Violet Dawn RN [employer]. 10-09-2015 17:16-0500 Heart rate 71 /min Violet Dawn RN [employer]. 10-09-2015 17:16-0500 Systolic blood pressure 117 mm[Hg] Violet Dawn RN [employer]. 08-07-2015 15:59-0400 Body height 168.91 cm Violet Dawn RN [employer]. 08-07-2015 15:59-0400 Body mass index (BMI) [Ratio] 34.34 kg/m2 Violet Dawn RN [employer]. 08-07-2015 15:59-0400 Body surface area Derived from formula 2.08 m2 Violet Dawn RN [employer]. 08-07-2015 15:59-0400 Body temperature 98 [degF] Violet Dawn RN [employer]. 08-07-2015 15:59-0400 Body weight 97.98 kg Violet Dawn RN [employer]. 08-07-2015 15:59-0400 Diastolic blood pressure 69 mm[Hg] Violet Dawn RN [employer]. 08-07-2015 15:59-0400 Heart rate 80 /min Violet Dawn RN [employer]. 08-07-2015 15:59-0400 Systolic blood pressure 136 mm[Hg] Violet Dawn RN [employer]. 07-23-2015 16:40-0400 Body height 168.91 cm Nahid Tijerina RN [employer]. 07-23-2015 16:40-0400 Body mass index (BMI) [Ratio] 33.86 kg/m2 Nahid Tijerina RN [employer]. 07-23-2015 16:40-0400 Body surface area Derived from formula 2.07 m2 Nahid Tijerina RN [facility]. 07-23-2015 16:40-0400 Body temperature 98.7 [degF] Nahid Tijerina RN [employer]. 07-23-2015 16:40-0400 Body weight 96.62 kg Nahid Tijerina RN [employer]. 07-23-2015 16:40-0400 Diastolic blood pressure 81 mm[Hg] Nahid Tijerina RN [employer]. 07-23-2015 16:40-0400 Heart rate 85 /min Nahid Tijerina RN [employer]. 07-23-2015 16:40-0400 Systolic blood pressure 123 mm[Hg] Nahid Tijerina RN [employer]. 07-08-2015 13:08-0400 Body height 152.4 cm Violet Dawn RN [facility] 07-08-2015 13:080400 Body mass index (BMI) [Ratio] 42.57 kg/m2 Violet Dawn [facility]. 07-08-2015 13:080400 Body surface area Derived from formula 1.94 m2 Violet Dawn RN [employer] [facility]. 07-08-2015 13:08-0400 Body temperature 97.6 [degF] Violet Dawn RN [employer] [facility]. 07-08-2015 13:080400 Body weight 98.88 kg Violet Dawn RN Rawls Fl[employer] [facility]. 07-08-2015 13:08-0400 Diastolic blood pressure 92 mm[Hg] Violet Dawn RN Rawls Fl[facility]. 07-08-2015 13:08-0400 Heart rate 78 /min Violet Dawn RN [employer] [facility]. 07-08-2015 13:08-0400 Systolic blood pressure 143 mm[Hg] Violet Dawn RN [employer] [facility]. 07-03-2015 17:21-0400 Body height 152.4 cm Voilet Dawn RN Rawls Fl[facility]. 07-03-2015 17:21-0400 Body mass index (BMI) [Ratio] 43.16 kg/m2 Violet Dawn RN [employer].; [facility]. 07-03-2015 17:21-0400 Body surface area Derived from formula 1.95 m2 Violet Dawn RN [employer].; [facility]. 07-03-2015 17:21-0400 Body temperature 98 [degF] Violet Dawn RN [employer].; [facility]. 07-03-2015 17:21-0400 Body weight 100.25 kg Violet Dawn RN [employer] [facility]. 07-03-2015 17:21-0400 Diastolic blood pressure 81 mm[Hg] Violet Dawn RN [employer]uck [facility] [employer]. 07-03-2015 17:21-0400 Heart rate 74 /min Violet Dawn RN Roebuck [facility]. 07-03-2015 17:21-0400 Systolic blood pressure 124 mm[Hg] Violet Dawn RN [employer]uck [facility]. 06-28-2015 16:05-0400 Body height 167.64 cm Nahid Tijerina RN Rawls Flasma [facility]. 06-28-2015 16:05-0400 Body mass index (BMI) [Ratio] 35.51 kg/m2 Nahid Tijerina RN [employer]uck Fl[facility]. 06-28-2015 16:05-0400 Body surface area Derived from formula 2.08 m2 Nahid Tijerina RN [employer]ls [employer].; [facility]. 06-28-2015 16:05-0400 Body temperature 98.3 [degF] Nahid Tijerina RN [employer].; [facility]. 06-28-2015 16:05-0400 Body weight 99.79 kg Nahid Tijerina RN [employer].; [facility]. 06-28-2015 16:05-0400 Diastolic blood pressure 77 mm[Hg] Nahid Tijerina RN [employer].; [facility]. 06-28-2015 16:05-0400 Heart rate 87 /min Nahid Tijerina RN [employer].; [facility]. 06-28-2015 16:05-0400 Inhaled oxygen concentration 20 % Nahid Tijerina RN [employer].; [facility]. 06-28-2015 16:05-0400 SaO2% (BldA) [Mass fraction] 98 % Nahid Tijerina RN Ro[employer]uck Fl[facility], [facility].; [facility]. 06-28-2015 16:05-0400 Systolic blood pressure 145 mm[Hg] Nahid Tijerina RN Roebuck Fl[facility], [facility].; [employer] 05-14-2015 14:47-0400 Body height 167.64 cm Naa Valladares LPN [employer] Fl[facility], [facility].; [employer] 05-14-2015 14:47-0400 Body mass index (BMI) [Ratio] 35.51 kg/m2 Naa Valladares LPN [employer] Fl[facility].; [employer]. 05-14-2015 14:47-0400 Body surface area Derived from formula 2.08 m2 Naa Valladares LPN [employer] Fl[facility].; [employer]. 05-14-2015 14:47-0400 Body weight 99.79 kg Naa Valladares LPN [employer].; [facility]. 05-14-2015 14:47-0400 Diastolic blood pressure 81 mm[Hg] Naa Valladares LPN [employer] [facility]. 05-14-2015 14:47-0400 Heart rate 77 /min Naa Valladares LPN [employer], [facility].; [facility]. 05-14-2015 14:47-0400 Systolic blood pressure 131 mm[Hg] Naa Valladares LPN [employer].; [facility]. 02-27-2015 17:06-0400 Body height 167.64 cm Violet Dawn RN Roebuck [employer] [facility].; [facility]. 02-27-2015 17:06-0400 Body mass index (BMI) [Ratio] 35.51 kg/m2 Violet Dawn RN Roebuck [facility] [facility].; [facility]. 02-27-2015 17:06-0400 Body surface area Derived from formula 2.08 m2 Violet Dawn RN Roebuck Fl[facility].; [facility]. 02-27-2015 17:06-0400 Body temperature 97.7 [degF] Violet Dawn RN Rawsl [employer] [facility]. 02-27-2015 17:06-0400 Body weight 99.79 kg Violet Dawn RN Roebuck [employer] [facility].; [employer] 02-27-2015 17:06-0400 Diastolic blood pressure 77 mm[Hg] Violet Dawn RN Roebuck [facility] [employer] 02-27-2015 17:06-0400 Heart rate 77 /min Violet Dawn RN [employer].; [facility]. 02-27-2015 17:06-0400 Systolic blood pressure 140 mm[Hg] Violet Dawn RN [employer].; [facility]. 01-31-2015 16:00-0400 Body height 167.64 cm Violet Dawn RN [employer].; [facility]. 01-31-2015 16:00-0400 Body mass index (BMI) [Ratio] 35.02 kg/m2 Violet Dawn RN [employer].; [facility]. 01-31-2015 16:00-0400 Body surface area Derived from formula 2.07 m2 Violet Dawn RN [employer].; [facility]. 01-31-2015 16:00-0400 Body temperature 97.8 [degF] Violet Dawn RN [employer].; [facility]. 01-31-2015 16:00-0400 Body weight 98.43 kg Violet Dawn RN [employer].; [facility]. 01-31-2015 16:00-0400 Diastolic blood pressure 90 mm[Hg] Violet Dawn RN [employer].; [facility]. 01-31-2015 16:00-0400 Heart rate 80 /min Violet Dawn RN [employer].; [facility]. 01-31-2015 16:00-0400 Systolic blood pressure 136 mm[Hg] Violet Dawn RN [employer].; [employer] [facility] [facility]. 01-16-2015 10:43-0400 Body height 167.64 cm Naa Valladares BILLING SERVICES MANAGER [facility], [facility].; [employer]. 01-16-2015 10:43-0400 Body mass index (BMI) [Ratio] 35.35 kg/m2 Naa Valladares [facility], [facility].; [employer]. 01-16-2015 10:43-0400 Body surface area Derived from formula 2.08 m2 Naa Valladares LPN [facility], [facility].; [employer]. 01-16-2015 10:43-0400 Body temperature 98.4 [degF] Naa Valladares BILLING SERVICES MANAGER [facility], [facility].; [employer]. 01-16-2015 10:43-0400 Body weight 99.34 kg Naa Valladares [facility] Fl[facility], [employer].; [employer]. 01-16-2015 10:43-0400 Diastolic blood pressure 86 mm[Hg] [facility].; [employer]. 01-16-2015 10:43-0400 Heart rate 70 /min Naa Valladares BILLING SERVICES MANAGER [employer] [facility], [facility].; [employer]. 01-16-2015 10:43-0400 Inhaled oxygen concentration 20 % Naa marizol [facility], [facility].; [employer]. 01-16-2015 10:43-0400 SaO2% (BldA) [Mass fraction] 98 % Naa Valladares LPN [employer], [facility].; [employer]. 01-16-2015 10:43-0400 Systolic blood pressure 154 mm[Hg] Naa Valladares LPN [employer] Fl[employer] [facility], [facility].; [employer], [employer]. 11-20-2014 09:36-0500 Body temperature 97.9 [degF] Tex Wan BILLING SERVICES MANAGER [employer] Fl[employer] [facility].; [employer]. 11-20-2014 09:36-0500 Body weight 97.98 kg Tex Wan BILLING SERVICES MANAGER [employer].; [facility]. 11-20-2014 09:36-0500 Diastolic blood pressure 81 mm[Hg] Nehiwote Yvette Wan BILLING SERVICES MANAGER [employer].; [facility]. 11-20-2014 09:36-0500 Heart rate 76 /min Tex Wan BILLING SERVICES MANAGER [employer], [employer].; [facility]. 11-20-2014 09:36-0500 Inhaled oxygen concentration 20 % Gogoe Yvette Wan BILLING SERVICES MANAGER [employer].; [facility]. 11-20-2014 09:36-0500 SaO2% (BldA) [Mass fraction] 99 % Scwilmer Wan [facility], [employer].; [facility]. 11-20-2014 09:36-0500 Systolic blood pressure 135 mm[Hg] Gogoe Yvette Wan BILLING SERVICES MANAGER [employer].; [facility]. 11-15-2014 11:22-0500 Body height 167.64 cm Violet Dawn RN [employer].; [facility]. 11-15-2014 11:22-0500 Body mass index (BMI) [Ratio] 34.06 kg/m2 Violet Dawn RN [employer].; [facility]. 11-15-2014 11:22-0500 Body surface area Derived from formula 2.05 m2 Violet Dawn RN Rawls Fl[facility]. 11-15-2014 11:22-0500 Body temperature 98 [degF] Violet Dawn RN [employer].; [facility]. 11-15-2014 11:22-0500 Body weight 95.71 kg Violet Dawn RN [employer].; [facility]. 11-15-2014 11:22-0500 Diastolic blood pressure 85 mm[Hg] Violet Dawn RN [employer].; [facility]. 11-15-2014 11:22-0500 Heart rate 88 /min Violet Dawn RN [employer].; [facility]. 11-15-2014 11:22-0500 Systolic blood pressure 126 mm[Hg] Violet Dawn RN [employer].; [facility]. 09-26-2014 15:27-0500 Body height 167.64 cm Violet Dawn RN [employer].; [facility]. 09-26-2014 15:27-0500 Body mass index (BMI) [Ratio] 35.11 kg/m2 Violet Dawn RN Rawls Fl[facility]. 09-26-2014 15:27-0500 Body surface area Derived from formula 2.07 m2 Violet Dawn RN [employer].; [facility]. 09-26-2014 15:27-0500 Body temperature 97.5 [degF] Violet Dawn RN [employer].; [facility]. 09-26-2014 15:27-0500 Body weight 98.66 kg Violet Dawn RN [employer].; [facility]. 09-26-2014 15:27-0500 Diastolic blood pressure 78 mm[Hg] Violet Dawn RN [employer].; [facility]. 09-26-2014 15:27-0500 Heart rate 78 /min Violet Dawn RN [employer].; [facility]. 09-26-2014 15:27-0500 Systolic blood pressure 132 mm[Hg] Violet Dawn RN [employer].; [facility]. 08-27-2014 15:010400 Body height 167.64 cm Violet Dawn RN [employer].; [facility]. 08-27-2014 15:010400 Body mass index (BMI) [Ratio] 34.94 kg/m2 Violet Dawn RN [employer].; [facility]. 08-27-2014 15:010400 Body surface area Derived from formula 2.07 m2 Violet Dawn RN [employer].; [facility]. 08-27-2014 15:01-0400 Body weight 98.2 kg Violet Dawn RN [employer].; [employer]. 08-27-2014 15:01-0400 Diastolic blood pressure 93 mm[Hg] Violet Dawn RN [employer].; [facility]. 08-27-2014 15:01-0400 Heart rate 76 /min Violet Dawn RN [employer].; [employer] 08-27-2014 15:01-0400 Systolic blood pressure 146 mm[Hg] Violet Dawn RN [employer].; [facility]. 05-24-2014 14:34-0400 Body height 167.64 cm Violet Dawn RN [employer].; [facility]. 05-24-2014 14:34-0400 Body mass index (BMI) [Ratio] 35.15 kg/m2 Violet Dawn RN [employer].; [facility]. 05-24-2014 14:34-0400 Body surface area Derived from formula 2.07 m2 Violet Dawn RN [employer].; [facility]. 05-24-2014 14:34-0400 Body weight 98.79 kg Violet Dawn RN [employer].; [facility]. 05-24-2014 14:34-0400 Diastolic blood pressure 90 mm[Hg] Violet Dawn RN [employer].; [facility]. 05-24-2014 14:34-0400 Heart rate 78 /min Violet Dawn RN [employer].; [facility]. 05-24-2014 14:34-0400 Systolic blood pressure 132 mm[Hg] Violet Dawn RN [employer].; [facility]. 04-24-2014 08:37-0400 Body temperature 96.7 [degF] Tex Wan LPN [employer].; [facility]. 04-24-2014 08:37-0400 Body weight 98.88 kg Tex Crawford Vess BILLING SERVICES MANAGER [employer] [facility], [facility].; [employer] [facility]. 04-24-2014 08:37-0400 Diastolic blood pressure 85 mm[Hg] Sylviahiwote Yvette Vess BILLING SERVICES MANAGER [employer] Fl[facility], [facility].; [employer] [facility]. 04-24-2014 08:37-0400 Heart rate 76 /min Sylviahiwote Yvette Vess BILLING SERVICES MANAGER [employer] Fl[employer] [facility], [facility].; [employer] [facility]. 04-24-2014 08:37-0400 Systolic blood pressure 143 mm[Hg] Gogoe L Vess BILLING SERVICES MANAGER [employer] [facility], [facility].; [employer] [facility]. 03-16-2014 09:02-0400 Body height 168.91 cm Yolanda Javed [facility] Flasma [facility], [facility].; [employer]. 03-16-2014 09:02-0400 Body mass index (BMI) [Ratio] 33.86 kg/m2 Y[facility]anda Javed [facility].; [employer]. 03-16-2014 09:02-0400 Body surface area Derived from formula 2.07 m2 Yolanda Javed BILLING SERVICES MANAGER [employer] [facility]. 03-16-2014 09:02-0400 Body temperature 99.2 [degF] Yolanda Javed BILLING SERVICES MANAGER [employer] [facility]. 03-16-2014 09:02-0400 Body weight 96.62 kg Yolanda Javed LPN [employer] [facility]. 03-16-2014 09:02-0400 Diastolic blood pressure 89 mm[Hg] Yolanda Javed LPN [employer] [facility].; [facility]. 03-16-2014 09:02-0400 Heart rate 91 /min Yolanda Javed BILLING SERVICES MANAGER [employer] [facility].; [employer]. 03-16-2014 09:02-0400 Systolic blood pressure 136 mm[Hg] Yolanda Javed LPN [employer], [employer]. 02-28-2014 17:13-0400 Body height 168.91 cm Violet Dawn RN Rawls Fl[facility].; [facility]. 02-28-2014 17:13-0400 Body mass index (BMI) [Ratio] 34.34 kg/m2 Violet Dawn RN Ro[employer]uck Fl[facility]. 02-28-2014 17:13-0400 Body surface area Derived from formula 2.08 m2 Violet Dawn RN Rawls Fl[facility]. 02-28-2014 17:13-0400 Body temperature 98 [degF] Violet Dawn RN [employer].; [facility]. 02-28-2014 17:13-0400 Body weight 97.98 kg Violet Dawn RN [employer].; [facility]. 02-28-2014 17:13-0400 Diastolic blood pressure 90 mm[Hg] Violet Dawn RN Rawls Fl[facility]. 02-28-2014 17:13-0400 Heart rate 89 /min Violet Dawn RN Rawls Fl[facility].; [facility]. 02-28-2014 17:13-0400 Systolic blood pressure 147 mm[Hg] Violet Dawn RN [employer].; [facility]. 08-30-2013 16:51-0400 Body height 168.91 cm Violet Dawn RN [employer].; [facility]. 08-30-2013 16:51-0400 Body mass index (BMI) [Ratio] 33.96 kg/m2 Violet Dawn RN [employer].; [facility]. 08-30-2013 16:51-0400 Body surface area Derived from formula 2.07 m2 Violet Dawn RN [employer].; [facility]. 08-30-2013 16:51-0400 Body temperature 98.3 [degF] Violet Dawn RN [employer].; [facility]. 08-30-2013 16:51-0400 Body weight 96.89 kg Violet Dawn RN [employer].; [facility]. 08-30-2013 16:51-0400 Diastolic blood pressure 86 mm[Hg] Violet Dawn RN [employer].; [facility]. 08-30-2013 16:51-0400 Heart rate 80 /min Violet Dawn RN [employer].; [facility]. 08-30-2013 16:51-0400 Systolic blood pressure 134 mm[Hg] Violet Dawn RN [employer].; [facility]. 06-07-2013 15:39-0400 Body height 168.91 cm Violet Dawn RN [employer].; [facility]. 06-07-2013 15:39-0400 Body mass index (BMI) [Ratio] 33.78 kg/m2 Violet Dawn RN [employer].; [facility]. 06-07-2013 15:39-0400 Body surface area Derived from formula 2.06 m2 Violet Dawn RN [employer].; [facility]. 06-07-2013 15:39-0400 Body temperature 97.9 [degF] Violet Dawn RN [employer].; [facility]. 06-07-2013 15:39-0400 Body weight 96.39 kg Violet Dawn RN [employer].; [facility]. 06-07-2013 15:39-0400 Diastolic blood pressure 82 mm[Hg] Violet Dawn RN [employer].; [facility]. 06-07-2013 15:39-0400 Heart rate 74 /min Violet Dawn RN [employer].; [facility]. 06-07-2013 15:39-0400 Systolic blood pressure 136 mm[Hg] Violet Dawn RN [employer].; [facility]. 04-26-2013 16:53-0400 Body height 168.91 cm Violet Dawn RN [employer].; [facility]. 04-26-2013 16:53-0400 Body mass index (BMI) [Ratio] 35.06 kg/m2 Violet Dawn RN [employer] Fl[facility]. 04-26-2013 16:53-0400 Body surface area Derived from formula 2.1 m2 Violet [facility] RN [facility].; [employer]. 04-26-2013 16:53-0400 Body temperature 97.6 [degF] Violte Dawn RN Ro[employer] Flasma [facility].; [employer]. 04-26-2013 16:53-0400 Body weight 100.02 kg Violet Dawn RN Roebuck Flasma [facility].; [facility]. 04-26-2013 16:53-0400 Diastolic blood pressure 81 mm[Hg] Violet Dawn RN Roebuck Fl[facility].; [employer]. 04-26-2013 16:53-0400 Heart rate 76 /min Violet Dawn RN Ro[employer]uck Fl[facility].; [employer]. 04-26-2013 16:53-0400 Systolic blood pressure 137 mm[Hg] Violet Dawn RN Roebuck Flasma [facility].; [facility]. 01-25-2013 17:17-0400 Body height 168.91 cm Violet Dawn RN Roebuck Flasma [facility].; [employer]. 01-25-2013 17:17-0400 Body mass index (BMI) [Ratio] 35.2 kg/m2 Violet Dawn RN Roebuck Flasma [facility].; [employer]. 01-25-2013 17:17-0400 Body surface area Derived from formula 2.1 m2 Violet Dawn RN Roebuck Flasma [facility].; [facility]. 01-25-2013 17:17-0400 Body temperature 97.7 [degF] Violet Dawn RN [employer].; [employer]. 01-25-2013 17:17-0400 Body weight 100.43 kg Violet Dawn RN [employer].; [facility]. 01-25-2013 17:17-0400 Diastolic blood pressure 70 mm[Hg] Violet Dawn RN [employer] Fl[facility]. 01-25-2013 17:17-0400 Heart rate 76 /min Violet Dawn RN Ro[employer] Flasma [facility].; [facility]. 01-25-2013 17:17-0400 Systolic blood pressure 131 mm[Hg] Violet Dawn RN [employer] Fl[facility]. 11-21-2012 13:29-0500 Body height 168.91 cm Violet Dawn RN [employer].; [facility]. 11-21-2012 13:29-0500 Body mass index (BMI) [Ratio] 34.5 kg/m2 Violet Dawn RN Rawls Fl[facility]. 11-21-2012 13:29-0500 Body surface area Derived from formula 2.08 m2 Violet Dawn RN [employer] Fl[facility]. 11-21-2012 13:29-0500 Body temperature 97.4 [degF] Violet Dawn RN [employer].; [facility]. 11-21-2012 13:29-0500 Body weight 98.43 kg Violet Dawn RN [employer].; [facility]. 11-21-2012 13:29-0500 Diastolic blood pressure 83 mm[Hg] Violet Dawn RN [employer].; [facility]. 11-21-2012 13:29-0500 Heart rate 84 /min Violet Dawn RN [employer].; [facility]. 11-21-2012 13:29-0500 Systolic blood pressure 120 mm[Hg] Violet Dawn RN [employer].; [facility]. 10-26-2012 14:56-0500 Body height 168.91 cm Violet Dawn RN [employer].; [facility]. 10-26-2012 14:56-0500 Body mass index (BMI) [Ratio] 35.61 kg/m2 Violet Dawn RN [employer].; [facility]. 10-26-2012 14:56-0500 Body surface area Derived from formula 2.11 m2 Violet Dawn RN [employer].; [facility]. 10-26-2012 14:56-0500 Body weight 101.61 kg Violet Dawn RN [employer].; [facility]. 10-26-2012 14:56-0500 Diastolic blood pressure 76 mm[Hg] Violet Dawn RN [employer].; [facility]. 10-26-2012 14:56-0500 Heart rate 76 /min Violet Dawn RN [employer].; [facility]. 10-26-2012 14:56-0500 Systolic blood pressure 126 mm[Hg] Violet Dawn RN [employer].; [facility]. 10-19-2012 16:52-0500 Body height 168.91 cm Violet Dawn RN [employer].; [facility]. 10-19-2012 16:52-0500 Body mass index (BMI) [Ratio] 36.06 kg/m2 Violet Dawn RN [employer].; [facility]. 10-19-2012 16:52-0500 Body surface area Derived from formula 2.12 m2 Violet Dawn RN [employer].; [facility]. 10-19-2012 16:52-0500 Body temperature 97.7 [degF] Violet Dawn RN [employer].; [facility]. 10-19-2012 16:52-0500 Body weight 102.88 kg Violet Dawn RN [employer].; [facility]. 10-19-2012 16:52-0500 Diastolic blood pressure 71 mm[Hg] Violet Dawn RN [employer].; [facility]. 10-19-2012 16:52-0500 Heart rate 77 /min Violet Dawn RN [employer].; [facility]. 10-19-2012 16:52-0500 Systolic blood pressure 124 mm[Hg] Violet Dawn RN [employer].; [facility]. 09-08-2012 15:24-0400 Body height 168.91 cm Violet Dawn RN [employer].; [employer] 09-08-2012 15:24-0400 Body mass index (BMI) [Ratio] 36.92 kg/m2 Violet Dawn RN [employer].; [facility]. 09-08-2012 15:24-0400 Body surface area Derived from formula 2.14 m2 Violet Dawn RN [employer].; [facility]. 09-08-2012 15:24-0400 Body temperature 97.6 [degF] Violet Dawn RN [employer].; [facility]. 09-08-2012 15:24-0400 Body weight 105.33 kg Violet Dawn RN [employer].; [facility]. 09-08-2012 15:24-0400 Diastolic blood pressure 88 mm[Hg] Violet Dawn RN [employer].; [facility]. 09-08-2012 15:24-0400 Heart rate 80 /min Violet Dawn RN [employer].; [facility]. 09-08-2012 15:24-0400 Systolic blood pressure 149 mm[Hg] Violet Dawn RN [employer].; [facility]. 05-27-2012 13:36-0400 Body height 168.91 cm Pam Dykes RN Work Phone: [employer].; [facility]. 05-27-2012 13:36-0400 Body mass index (BMI) [Ratio] 35.29 kg/m2 Pam Dykes RN Work Phone: [employer].; [employer] 05-27-2012 13:36-0400 Body surface area Derived from formula 2.1 m2 Pam Dykes RN Work Phone: [employer].; [facility]. 05-27-2012 13:36-0400 Body weight 100.7 kg Pam Dykes RN Work Phone: [employer].; [facility]. 05-27-2012 13:36-0400 Diastolic blood pressure 80 mm[Hg] Pam Dykes RN Work Phone: [employer].; [facility]. 05-27-2012 13:36-0400 Heart rate 88 /min Pam Dykes RN Work Phone: [employer].; [facility]. 05-27-2012 13:36-0400 Systolic blood pressure 118 mm[Hg] Pam Dykes RN Work Phone: [employer].; [facility]. 03-30-2012 13:12-0400 Body height 168.91 cm Violet Dawn RN [employer].; [facility]. 03-30-2012 13:12-0400 Body mass index (BMI) [Ratio] 35.01 kg/m2 Violet Dawn RN [employer].; [facility]. 03-30-2012 13:12-0400 Body surface area Derived from formula 2.1 m2 Violet Dawn RN [employer].; [facility]. 03-30-2012 13:12-0400 Body temperature 97.9 [degF] Violet Dawn RN [employer].; [facility]. 03-30-2012 13:12-0400 Body weight 99.88 kg Violet Dawn RN [employer].; [facility]. 03-30-2012 13:12-0400 Diastolic blood pressure 78 mm[Hg] Violet Dawn RN [employer].; [facility]. 03-30-2012 13:12-0400 Heart rate 90 /min Violet Dawn RN [employer].; [facility]. 03-30-2012 13:12-0400 Systolic blood pressure 132 mm[Hg] Violet Dawn RN [employer].; [facility]. 12-30-2011 16:52-0500 Body height 170.18 cm Violet Dawn RN [employer] [facility].; [facility]. 12-30-2011 16:52-0500 Body mass index (BMI) [Ratio] 33.39 kg/m2 Violet Dawn RN [employer] Fl[facility].; [employer]. 12-30-2011 16:52-0500 Body surface area Derived from formula 2.08 m2 Violet Dawn RN Roebuck [employer] [facility].; [facility]. 12-30-2011 16:52-0500 Body temperature 97 [degF] Violet Dawn RN [employer].; [facility]. 12-30-2011 16:52-0500 Body weight 96.71 kg Violet Dawn RN [employer].; [facility]. 12-30-2011 16:52-0500 Diastolic blood pressure 72 mm[Hg] Violet Dawn RN [employer].; [facility]. 12-30-2011 16:52-0500 Heart rate 79 /min Violet Dawn RN Rawls [facility]. 12-30-2011 16:52-0500 Systolic blood pressure 118 mm[Hg] Violet Dawn RN [employer].; [facility]. 12-22-2011 13:52-0500 Body height 170.18 cm Pam Dykes RN Work Phone: [employer] [facility]. 12-22-2011 13:52-0500 Body mass index (BMI) [Ratio] 33.05 kg/m2 Pam Dykes RN Work Phone: [employer].; [facility]. 12-22-2011 13:52-0500 Body surface area Derived from formula 2.07 m2 Pam Dykes RN Work Phone: [employer] [facility]. 12-22-2011 13:52-0500 Body weight 95.71 kg Pam Dykes RN Work Phone: [facility]. 12-22-2011 13:52-0500 Diastolic blood pressure 78 mm[Hg] Pam Dykes RN Work Phone: [employer] 12-22-2011 13:52-0500 Heart rate 90 /min Pam Dykes RN Work Phone: [employer] 12-22-2011 13:52-0500 Systolic blood pressure 123 mm[Hg] Pam Dykes RN Work Phone: [employer] 11-19-2011 10:22-0500 Body height 170.18 cm Violet Dawn RN [employer] [facility]. 11-19-2011 10:22-0500 Body mass index (BMI) [Ratio] 32.86 kg/m2 Violet Dawn RN [employer] [facility]. 11-19-2011 10:22-0500 Body surface area Derived from formula 2.06 m2 Violet Dawn RN [employer] [facility]. 11-19-2011 10:22-0500 Body temperature 97.8 [degF] Violet Dawn RN [employer] [facility]. 11-19-2011 10:22-0500 Body weight 95.17 kg Violet Dawn RN [employer] [facility]. 11-19-2011 10:22-0500 Diastolic blood pressure 85 mm[Hg] Violet Dawn RN [employer] [facility]. 11-19-2011 10:22-0500 Heart rate 80 /min Violet Dawn RN [employer] [facility]. 11-19-2011 10:22-0500 Systolic blood pressure 137 mm[Hg] Violet Dawn RN [employer] [facility]. 10-05-2011 10:04-0500 Body height 170.18 cm Violet Dawn RN [employer] [facility]. 10-05-2011 10:04-0500 Body mass index (BMI) [Ratio] 33.33 kg/m2 Violet Dawn RN [employer] [facility]. 10-05-2011 10:04-0500 Body surface area Derived from formula 2.08 m2 Violet Dawn RN [employer] [facility]. 10-05-2011 10:04-0500 Body temperature 97.6 [degF] Violet Dawn RN [employer] [facility]. 10-05-2011 10:04-0500 Body weight 96.53 kg Violet Dawn RN [employer] [facility]. 10-05-2011 10:04-0500 Diastolic blood pressure 79 mm[Hg] Violet Dawn RN [employer] [facility]. 10-05-2011 10:04-0500 Heart rate 93 /min Violet Dawn RN [employer] [facility]. 10-05-2011 10:04-0500 Systolic blood pressure 137 mm[Hg] Violet Dawn RN [employer] [facility]. 08-27-2011 15:03-0400 Body height 170.18 cm Nahid D [employer] Work Phone: [employer] [facility]. 08-27-2011 15:03-0400 Body mass index (BMI) [Ratio] 34.97 kg/m2 [employer] PA-C Work Phone: [employer] [facility]. 08-27-2011 15:03-0400 Body surface area Derived from formula 2.12 m2 Nahid D [employer] PA-C Work Phone: [employer] [facility]. 08-27-2011 15:03-0400 Body temperature 97.8 [degF] Nahid D [employer] PA-C Work Phone: [facility] 08-27-2011 15:03-0400 Body weight 101.27 kg Nahid D [employer] PA-C Work Phone: [facility] 08-27-2011 15:03-0400 Diastolic blood pressure 69 mm[Hg] Nahid D [employer] PA-C Work Phone: [facility] 08-27-2011 15:03-0400 Heart rate 92 /min [employer] PA-C Work Phone: [facility] 08-27-2011 15:03-0400 Systolic blood pressure 141 mm[Hg] [employer] PA-C Work Phone: [facility] 08-12-2011 17:04-0400 Body height 170.18 cm Violet Dawn RN [facility] 08-12-2011 17:04-0400 Body mass index (BMI) [Ratio] 35.77 kg/m2 Violet Dawn RN [employer] [facility]. 08-12-2011 17:04-0400 Body surface area Derived from formula 2.14 m2 Violet Dawn RN [facility] 08-12-2011 17:04-0400 Body temperature 97 [degF] Violet Dawn RN [facility] 08-12-2011 17:04-0400 Body weight 103.6 kg Violet Dawn RN [facility] 08-12-2011 17:04-0400 Diastolic blood pressure 73 mm[Hg] Violet Dawn RN [employer] [facility]. 08-12-2011 17:04-0400 Heart rate 95 /min Violet Dawn RN [employer] 08-12-2011 17:04-0400 Systolic blood pressure 124 mm[Hg] Violet Dawn RN [employer] 02-19-2011 10:10-0400 Body height 170.18 cm Violet Dawn RN [employer] 02-19-2011 10:10-0400 Body mass index (BMI) [Ratio] 34.64 kg/m2 Violet Dawn RN [employer] 02-19-2011 10:10-0400 Body surface area Derived from formula 2.11 m2 Violet Dawn RN [employer] 02-19-2011 10:10-0400 Body temperature 97.9 [degF] Violet Dawn RN [employer] [facility]. 02-19-2011 10:10-0400 Body weight 100.34 kg Violet Dawn RN [employer] [facility]. 02-19-2011 10:10-0400 Diastolic blood pressure 86 mm[Hg] Violet Dawn RN [employer] [facility]. 02-19-2011 10:10-0400 Heart rate 94 /min Violet Dawn RN [employer] 02-19-2011 10:10-0400 Systolic blood pressure 139 mm[Hg] Violet Dawn RN [employer] [facility]. 01-22-2011 17:00-0400 Body height 170.18 cm [facility] Work Phone: [employer] [facility]. Work Phone: 01-22-2011 17:00-0400 Body mass index (BMI) [Ratio] 33.83 kg/m2 [facility] Work Phone: [employer] Work Phone: 01-22-2011 17:00-0400 Body surface area Derived from formula 2.09 m2 Madison Ayala LPN Work Phone: [employer] Work Phone: 01-22-2011 17:00-0400 Body temperature 96.6 [degF] Madison Ayala BILLING SERVICES MANAGER Work Phone: [facility] [employer] Work Phone: 01-22-2011 17:00-0400 Body weight 97.98 kg Madison Ayala BILLING SERVICES MANAGER Work Phone: [facility] [employer] Work Phone: 01-22-2011 17:00-0400 Diastolic blood pressure 89 mm[Hg] Madison Ayala BILLING SERVICES MANAGER Work Phone: [facility] [employer] Work Phone: 01-22-2011 17:00-0400 Heart rate 103 /min Madison Ayala BILLING SERVICES MANAGER Work Phone: [facility] [employer] Work Phone: 01-22-2011 17:00-0400 Systolic blood pressure 131 mm[Hg] Madison Ayala BILLING SERVICES MANAGER Work Phone: [employer] Work Phone: 09-01-2010 14:58-0400 Body temperature 98.1 [degF] Violet Dawn RN [employer] 09-01-2010 14:58-0400 Body weight 99.61 kg Violet Dawn RN [employer] 09-01-2010 14:58-0400 Diastolic blood pressure 73 mm[Hg] [facility]. 09-01-2010 14:58-0400 Heart rate 87 /min Violet Dawn RN [facility].; [facility] 09-01-2010 14:58-0400 Systolic blood pressure 119 mm[Hg] Violet Dawn [facility] Encounters Encounter Date Encounter Type Care Provider Facility Start: 10-19-2023 End: 10-19-2023 Office outpatient visit 15 minutes Jhon Capone PA-C [facility] Start: 10-19-2023 End: 10-19-2023 Preprocedural examination done Jhon Capone PA-C Work Phone[facility]; [facility] [employer] [facility] Start: 08-06-2023 End: 08-09-2023 Office outpatient visit 25 minutes Jhon Capone PA-C [facility] Start: 05-18-2023 ambulatory Rupali MCKOY RN.CHASSIS INSPECTOR Work Phone: OB/Gynecology Procedures Date Procedure Procedure Detail Performing Clinician Start: 07-20-2023 End: 07-20-2023 Examination of retina Itzel Pickett MA Start: 05-10-2023 Mammography Mammograph y Coordinator Start: 08-13-2022 End: 08-13-2022 Depression screening Jhon JOEC Work Phone: Start: 08-13-2022 End: 08-13-2022 Pos clin depres scrn f/u doc Jhon JOEC Work Phone: Start: 10-03-2021 End: 10-03-2021 Mammography Itzel Pickett MA Start: 07-17-2021 End: 07-17-2021 Depression screening Jhon JOEC Work Phone: Start: 07-17-2021 End: 07-17-2021 Scr dep neg, no plan reqd Jhon J Capone PA-C Work Phone: Start: 07-06-2021 End: 07-06-2021 Lab findings surveillance Itzel Shirley Start: 07-06-2021 End: 07-06-2021 Itzel Pickett MA Start: 07-06-2021 End: 07-06-2021 Itzel Pickett MA Start: 2021 End: 2021 Most recent diastolic blood pressure 80-89 mm hg Nahid Aguilar [place] PA-C Work Phone: Start: 2021 End: 2021 Most recent systolic blood press 130-139mm hg Nahid Aguilar [place] PA-C Work Phone: Start: 09-12-2020 End: 09-12-2020 Depression screening Nahid Henson PA -C Work Phone: Start: 09-12-2020 End: 09-12-2020 Scr dep neg, no plan reqd Nahid Hogan ls PA-C Work Phone: Start: 09-06-2020 End: 09-25-2021 Dxa bone density study 1/> sites axial skel Nahid Aguilar [place] PA-C Work Phone: Start: 06-30-2020 End: 06-30-2020 Itzel Pickett MA Start: 06-12-2020 End: 09-25-2021 Most recent hg a1c>equal to 7.0%&<8.0% Nahid Aguilar [place] PA-C Work Phone: Start: 03-12-2020 End: 09-25-2021 Most recent hg a1c>equal to 7.0%&<8.0% Nahid Aguilar [place] PA-C Work Phone: Start: 03-12-2020 End: 03-12-2020 Itzel Pickett MA Start: 12-12-2019 End: 09-25-2021 Most recent hg a1c>equal to 7.0%&<8.0% Nahid Aguilar [place] PA-C Work Phone: Start: 09-06-2019 End: 09-06-2019 Depression screening Nahid Henson PA -C Work Phone: Start: 09-06-2019 End: 09-06-2019 Scr dep neg, no plan reqd Nahid kelly PA-C Work Phone: Start: 03-07-2019 End: 03-07-2019 Adarsh inhibitor/arb therapy rxd/currently taken Nahid Henson PA-C Work Phone: Start: 03-07-2019 End: 03-07-2019 Documentation of treatment for nephropathy Nahid Henson PA-C Work Phone: Start: 03-07-2019 End: 03-07-2019 Foot examination performed Nahid Calvo carlota PA-C Work Phone: Start: 03-07-2019 End: 03-07-2019 Most recent hemoglobin a1c level gt 7.0-9.0 % Nahid Henson PA-C Work Phone: Start: 11-16-2018 End: 11-16-2018 Most recent hemoglobin a1c level gt 7.0-9.0 % Nahid Henson PA-C Work Phone: Start: 08-18-2018 End: 08-18-2018 Most recent diastolic blood pressure 80-89 mm hg Nahid Henson PA-C Work Phone: Start: 08-18-2018 End: 08-18-2018 Most recent systolic blood pres>/equal 140 mm hg Nahid Henson PA-C Work Phone: Start: 06-14-2018 End: 06-14-2018 Bone density scan Itzel Pickett MA Start: 05-16-2018 End: 05-16-2018 Microscopic examination of cervical Papanicolaou smear Itzel Pickett MA Start: 05-09-2018 End: 05-09-2018 Dilated retinal exam w/evidence of retinopathy Nahid Henson PA-C Work Phone: Start: 05-09-2018 End: 05-09-2018 Most recent hemoglobin a1c level gt 7.0-9.0 % Nahid Henson PA-C Work Phone: Start: 02-09-2018 End: 02-09-2018 Body mass index documented Nahid Aguilar [place] PA-C Work Phone: Start: 02-09-2018 End: 02-09-2018 Dilated retinal exam w/evidence of retinopathy Nahid D [place] PA-C Work Phone: Start: 02-09-2018 End: 02-09-2018 Most recent hemoglobin a1c level < 7.0% Nahid Henson PA-C Work Phone: Start: 02-09-2018 End: 02-17-2018 Us soft tissue head & neck real time imge docm Nahid Aguilar [place] PA-C Work Phone: Start: 11-24-2017 End: 11-24-2017 Itzel Pickett MA Start: 11-11-2017 End: 11-11-2017 Body mass index documented Nahid Calvo lls PA-C Work Phone: Start: 11-11-2017 End: 11-11-2017 Dilated retinal exam w/evidence of retinopathy Nahid Aguilar [place] PA-C Work Phone: Start: 11-11-2017 End: 11-11-2017 Most recent hemoglobin a1c level < 7.0% Nahid D [place] PA-C Work Phone: Start: 11-11-2017 End: 11-11-2017 Negative microalbuminuria test result doc&rev Nahid Aguilar [place] PA-C Work Phone: Start: 09-11-2017 End: 09-11-2017 Bilateral oophorectomy Itzel Pickett MA Start: 08-12-2017 End: 08-12-2017 Most recent diastolic blood pressure < 80 mm hg Nahid Aguilar [place] PA-C Work Phone: Start: 08-12-2017 End: 08-12-2017 Most recent hemoglobin a1c level < 7.0% Nahid Aguilar [place] PA-C Work Phone: Start: 08-12-2017 End: 08-12-2017 Most recent systolic blood pressure <130 mm hg Nahid Henson PA-C Work Phone: Start: 08-12-2017 End: 08-12-2017 Body mass index documented Nahid Calvo lls PA-C Work Phone: Start: 06-08-2017 End: 06-08-2017 Screening colonoscopy Itzel Pickett MA Start: 04-13-2017 End: 04-22-2017 Us pelvic nonobstetric real-time image complete Nahid Henson PA-C Work Phone: Start: 04-07-2017 End: 04-12-2017 Ct abdomen & pelvis w/contrast material Nahid Henson PA-C Work Phone: Start: 06-01-2016 End: 08-12-2016 EMG Cristobal Ewing Work Phone: Start: 06-01-2016 End: 08-12-2016 Nerve Conduction Cristobal Elvi Ewing Work Phone: Start: 06-01-2016 End: 08-12-2016 Radex spine cervical 2 or 3 views Cristobal Elvi Ewing Work Phone: Start: 04-08-2016 End: 04-08-2016 Decompression of median nerve Itzel Piyush SIBLEY Start: 11-12-2015 End: 11-14-2015 Radex foot complete minimum 3 views Yolanda Bridges MD Work Phone: Start: 10-29-2015 End: 10-29-2015 Removal skn tags cost consultant fibrq tags any area upw/15 Nahid Aguilar [place] PA-C Work Phone: Start: 11-20-2014 End: 11-29-2014 Xtrnl ecg & 48 hr record scan stor w/r&i Nahid Henson PA-C Work Phone: Start: 07-19-2013 Colonoscopy Rupali ignacio APRN.CHASSIS INSPECTOR Work Phone: Start: 06-12-2013 End: 06-14-2013 Hepatobiliary syst imaging including gallbladder Nahid Aguilar [place] PA-C Work Phone: Start: 06-07-2013 End: 06-12-2013 Us abdominal real time w/image limited Nahid Henson PA-C Work Phone: Start: 11-08-2012 End: 11-08-2012 Cholecystectomy Itzel Pickett MA Start: 11-08-2012 End: 11-08-2012 Colonoscopy Itzel Pickett MA Start: 07-12-2012 End: 07-12-2012 Polysom 6/>yrs sleep w/cpap 4/> addl bhavani attnd Mary Benito Work Phone: Start: 05-27-2012 End: 06-20-2012 Polysom 6/>yrs sleep 4/> addl bhavani attnd Yolanda Bridges MD Work Phone: section Itzel aguilar MA Plan of Treatment Date Care Activity Detail Author Start: 05-10-2028 HPV TESTING HPV TESTING [facility] Start: 05-10-2028 PAP TESTING PAP TESTING [facility] Start: 07-04-2025 DIABETES SCREEN DIABETES SCREEN [facility] Start: 05-10-2024 Mammography MAMMOGRAM [facility] Start: 02-03-2024 [facility]. Start: 07-09-2023 Influenza vaccination [facility] Start: 11-08-2022 DEPRESSION ASSESSMENT DEPRESSION ASSESSMENT [facility] Start: 10-03-2022 Mammography MAMMOGRAM [facility] Start: 09-12-2021 COVID-19 VACCINE (3 - Booster for Pfizer series) COVID-19 VACCINE (3 - Booster for Pfizer series) [facility] Start: 09-12-2021 COVID-19 VACCINE (3 - Pfizer series) COVID-19 VACCINE (3 - Pfizer series) [facility] Start: 04-15-2021 Comprehensive metabolic panel [facility] [employer] [facility]. Start: 09-09-2017 End: 09-09-2017 Mri upper extremity oth than jt w/o contr matrl MRI [facility] Work Phone: Start: 09-09-2017 End: 09-09-2017 Radex hand minimum 3 views X-Ray, Hand [facility] Work Phone: Start: 09-09-2017 End: 09-09-2017 Appointment Appointment [facility] Work Phone: Start: 09-08-2017 End: 09-08-2017 Appointment Appointment [facility] Work Phone: Start: 06-14-2017 End: 06-14-2017 Esophagogastroduodenoscopy transoral diagnostic EGD; diagnostic, including collection of specimen [facility] Work Phone: Start: 06-10-2017 End: 06-10-2017 Colonoscopy flx dx w/collj spec when pfrmd Colonoscopy [facility] Work Phone: Start: 07-19-2016 Colonoscopy COLONOSCOPY [facility] Start: 07-19-2016 COLORECTAL CANCER SCREENING COLORECTAL CANCER SCREENING [facility] Start: 06-01-2016 End: 08-12-2016 EMG EMG [facility] Work Phone: Start: 06-01-2016 End: 08-12-2016 Nerve Conduction Nerve Conduction [facility] Work Phone: Start: 06-01-2016 End: 08-12-2016 Radex spine cervical 2 or 3 views X-Ray, Spine, Cervical 2-3 views [facility] Work Phone: Start: 2015 SHINGRIX VACCINE (1 of 2) SHINGRIX VACCINE (1 of 2) [facility] Start: 2010 COLOGUARD (FIT-DNA) COLOGUARD (FIT-DNA) [facility] Start: [address] COLONOGRAPHY [facility] Start: 2010 FECAL OCCULT BLOOD FECAL OCCULT BLOOD [facility] Start: 2010 LIPID SCREEN LIPID SCREEN [facility] Start: 2010 SIGMOIDOSCOPY SIGMOIDOSCOPY [facility] Start: 1995 HPV TESTING HPV TESTING [facility] Start: 1986 PAP TESTING PAP TESTING [facility] Start: 01-14-1984 Urine microalbumin profile DTAP,TDAP,TD (1 - Tdap) [facility] Start: 1983 HEPATITIS C SCREENING HEPATITIS C SCREENING [facility] Start: 1983 HIV SCREENING HIV SCREENING [facility] Start: 1965 COVID-19 VACCINE (#1) COVID-19 VACCINE (#1) [facility] Start: 1965 HEPATITIS B (1 of 3 - 3-dose series) HEPATITIS B (1 of 3 - 3-dose series) [facility] End: 05-22-2024 JHONATAN SCREENING W GLORIA JHONATAN SCREENING W GLORIA Radiology Routine Encounter for screening mammogram for malignant neoplasm of breast 1 Occurrences starting 04/23/2023 until 05/22/2024 [facility] Work Phone: Immunizations Immunization Date Immunization Notes Care Provider Katlyn lee 06-26-2021 Jhon Capone PA -C Work Phone: [facility] 2021 TD(adult) unspecifie d formulation Jhon Capone PA-C Work Phone: [employer] [facility] [employer] [facility] 02-14-2018 typhoid vaccine, molly e, oral Jhon Capone PA-C Work Phone: [employer] [facility] [employer] [facility] 02-09-2018 typhoid vaccine, unspecified formulation Jhon Capone PA-C Work Phone: [employer] [facility] [employer] [facility] 10-06-2017 hepatitis A vaccine, adult dosage Jhon Capone PA-C Work Phone: [employer] [facility] [employer] [facility] 02-15-2017 hepatitis A vaccine, adult dosage Jhon Capone PA-C Work Phone: [employer] [facility] 07-29-2016 influenza, seasonal, injectable Jhon Capone PA-C Work Phone: [employer] [facility] 08-30-2013 pneumococcal Conjuga te, unspecified formulation Jhon Capone PA-C Work Phone: [facility] 08-30-2013 pneumococcal polysaccharide vaccine, 23 valent Jhon Capone PA-C Work Phone: [facility] 08-29-2009 tetanus toxoid, redu ubaldo diphtheria toxoid, and acellular pertussis vaccine, adsorbed Jhon Capone PA-C Work Phone: [facility] Work Phone: Payers Date Payer Category Payer Unknown [id number] 2023 Unknown [id number] 1965 Unknown [id number] [id number] 1965 Unknown [id number] 2.16.84 [id number] 1965 Unknown [id number] [id number] [id number] 1965 Unknown [id number] 2.16.84 [id number] 1965 Unknown [id number] 2.16.84 [id number] 1965 Unknown [id number] 2.16.84 [id number] 1965 Unknown [id number] [id number] Private Health Insurance [id number] Unknown [id number] Unknown [id number] Social History Date Type Detail Facility Start: 06-12-2020 End: 05-10-2023 Tobacco smoking status NHIS Never smoked tobacco [facility] Work Phone: Start: 06-12-2020 End: 05-10-2023 Tobacco use and exposure Smokeless tobacco non-user [facility] Work Phone: Start: 08-06-2021 End: 05-10-2023 Alcohol intake Current non-drinker of alcohol (finding) [facility] Start: 06-12-2020 History SDOH Financial 5 [facility] Start: 06-12-2020 History SDOH Food Worry 1 [facility] Start: 06-12-2020 History SDOH Transpo rt Med 2 [facility] Start: 1965 Sex Assigned At Not on file [facility] Start: 06-12-2020 End: 05-10-2023 History of Social function [facility] Work Phone: Start: 06-12-2020 End: 05-10-2023 Tobacco use panel [facility] Work Phone: How hard is it for y ou to pay for the very basics like food, housing, medical care, and heating Not hard at all [facility] Work Phone: (I/We) worried wheth er (my/our) food would run out before (I/we) got money to buy more. Never true [facility] Work Phone: None. [facility] Never smoker. [facility]. Medical Equipment Procedure Code Equipment Code Equipment Origin al Text Equipment Identifier Dates [id number] Start: 09-06-2019 [id number] Start: 09-06-2019 Goals Date Patient Goal Desired Activity /State 03-08-2019 Note 05-12-2023 Letter - Mammography Coordinator - 05/12/2023 11:10 AM EDT Note Date & Type Note Facility 05-12-2023 Miscellaneous Notes Formattin g of this note might be different from the original. May 13, 2023 PID: [id number] Lyndsey Pandey [id number] [place] [address] Dear Ms. Pandey, We are pleased to inform you that the results of your recent breast imaging exam on 05/10/2023 are normal. Early detection of cancer is very important. We also understand recommendations regarding breast cancer screening are controversial. Please discuss with your primary care provider which strategy is best for you and whether a mammogram is right for you. Your imaging studies and report will be kept on file at [facility] as part of your permanent medical record and are available for your continuing care. Thank you for allowing us to help in meeting your health care needs. Sincerely, Dr. Malloy Interpreting Radiologist [facility] (Normal over 40) documented in this encounter [facility] Progress note 05-10-2023 Note Date & Type Note Facility 05-10-2023 Note HNO ID: [id number] Author: RT Steven(R) Service: ? Author Type: Rail Transportation Operator Type: Progress Notes Filed: 05/10/2023 9:56 AM Note Text: Radiology Service Progress Note PATIENT NAME: Lyndsey Pandey DATE OF SERVICE: May 10, 2023 TIME: 9:56 AM PATIENT IDENTITY VERIFICATION COMPLETED USING TWO (2) IDENTIFIERS: Name and Date of confirmed by patient verbally. FALL SCREENING: Has the patient had 2 falls in the last year or 1 fall with injury or currently using an Ambulatory Assistive Device (Walker, Cane, Wheelchair, Crutches, etc.)? No PATIENT GENDER DATA: Female. status: : No status: NO. PATIENT RELEVANT IMPLANT DATA REVIEWED: Not Applicable RADIOLOGY DEPARTMENT: Mammography PERIPHERAL IV DATA: Not applicable SIGNED BY: RT Steven(R) May 10, 2023 9:56 AM [facility] Progress note 05-10-2023 Note Date & Type Note Facility 05-10-2023 Note HNO ID: [id number] Author: Rupali Sage APRN.CHASSIS INSPECTOR Service: ? Author Type: Nurse Practitioner Type: Progress Notes Filed: 05/10/2023 5:20 PM Note Text: [employer] Developer offered: Patient declines. Lyndsey is a 58 year old who presents for an annual gynecologic exam with complaints, . Vaginal and vulvar itching x 3 weeks - treated with Monistat 1 which did not help much. Now using hydrocortisone. No recent antibiotic use. Taking Farxiga. Used to use estrogen vaginal cream but stopped when health insurance did not cover it. Postmenopausal: Yes since age 45 HRT use: No. Last Pap: 2018 normal HPV: negative History of abnormal pap: No Last mammogram: today, pending History of abnormal mammogram: No Sexually active: No History of STDS: None Time with current partner: long-term History of ovarian cyst: Yes, had oophorectomy BSO 2016 Vaginal dryness - Yes Documentation from previous visit of 08/06/2021 was copied and pasted, documentation has been reviewed and edited as necessary for today's visit. 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: Sexual Activity: Not Currently; Male Contraception: No contraception data on record PAST MEDICAL HISTORY Diagnosis Date Depression Diabetes (HCC) Hypertension Multiple thyroid nodules Osteopenia 2018 left femoral neck Sinus trouble PAST SURGICAL HISTORY Procedure Laterality Date CARPAL TUNNEL Left 2014 DELIVERY ONLY , low transverse x 2 COLONOSCOPY FLX DX W/COLLJ SPEC WHEN PFRMD 07-19-13 and 2016 due 2025 EGD TRANSORAL BIOPSY SINGLE/MULTIPLE 07-19-13 and 2015 FOOT SURGERY HX Right 2021 HAND LEFT OP SURGERY 2018 LAPAROSCOPY SURG CHOLECYSTECTOMY 06/27/2013 OOPHORECTOMY PARTIAL OR TOTAL Bilateral 2016 FAMILY HISTORY Problem Relation Age of Onset Liver Disease Mother Hypertension Mother Brain Cancer Mother Osteoporosis Father Glaucoma Father Skin Cancer Father Hypertension Father No Known Problems Brother Diabetes Maternal Grandmother Heart Maternal Grandmother Diabetes Maternal Grandfather Heart Maternal Grandfather Thyroid Paternal Grandmother Osteoporosis Paternal Grandmother Glaucoma Paternal Grandmother Thyroid Paternal Aunt Glaucoma Paternal Uncle SOCIAL HISTORY Social History Tobacco Use Smoking status: Never Smokeless tobacco: Never Vaping Use Vaping Use: Never used Substance Use Topics Alcohol use: No Drug use: Never REVIEW OF SYSTEMS Abdomen: No abdominal pain, nausea, vomiting, diarrhea, or constipation. No bloating, early satiety, indigestion, or increased flatulence. Bladder: No dysuria, gross hematuria, urinary frequency, urinary urgency, or incontinence Breast: No breast lumps, nipple d/c, overlying skin changes, redness or skin retraction Allergies and current medication updated:Yes EXAM: BP 132/82 Ht 5' 5.5 (1.66m) Wt 183 lb (83.0kg) BMI 29.98 kg/(m2). GENERAL: pleasant, female in no apparent distress HEENT: Normocephalic, atraumatic, mucus membranes moist, and no lesions NECK: Supple, full range of motion, no adenopathy, and thyroid normal DERMATOLOGY: Normal, without lesions, non-icteric, and non-hirsute BREAST: soft, non-tender, symmetric, no dominant mass, normal nipple-areolar complex, no lymphadenopathy, and no nipple discharge CHEST: Normal inspiratory effort ABDOMEN: soft, non-tender, and no masses PELVIC: external genitalia normal, normal Bartholin's glands, urethra, [place] Mandry's glands, no vulvar lesions, no cervical lesions, physiologic discharge present, normal appearing perineal body and perianal region. + vaginal atrophy BIMANUAL: uterus normal size, shape and consistency, no adnexal masses, and non-tender RECTOVAGINAL: deferred. NEURO: alert and oriented x3,exam grossly non-focal EXTREMITIES: normal ASSESSMENT/PLAN: 1) Health maintenance: Pap done with HPV. Mammogram ordered Mammogram up to date Nutrition, exercise and routine health maintenance exams reviewed. Calcium/Vitamin D supplementation information provided. Colon cancer screening: up to date with screening BMD: osteopenia, managed by bonding machine setter 2. Vulvovaginal itching - ICD9: 698.1, ICD10: L29.2 - BACT/ROBERTO CARLOS VAG GRAM STAIN 3. Postmenopausal atrophic vaginitis - ICD9: 627.3, ICD10: N95.2 - discussed treatment with vaginal hyaluronic acid or vaginal estrogen. Prefers Revaree hyaluronic acid vaginal suppositories - use explained and given ordering information. 4) Follow up one year or sooner as needed. Will notify of results. Rupali Sage APRN.ENMA [facility] Instructions 05-10-2023 Patient Instructions Note Date & Type Note Facility 05-10-2023 Instructions Rupali Sage APRN.ENMA - 05/10/2023 10:07 AM EDT Calcium and Vitamin D Supplementation (from the National Institutes of Health Office of Dietary Supplements 2011) Calcium 1200 mg daily - 600 mg twice a day if taking supplement and Vit D 5915-5147 IU daily Calcium is required by the body for blood vessel, muscle, hormone and nerve functioning. Most of the body's calcium is stored in the bones and teeth where it supports structure and function. Bone is continuously broken down and reformed. When bone breakdown exceeds formation, especially in postmenopausal women, bone loss can increase the risk of osteoporosis and fractures. In addition to low calcium intake, women who smoke, have a family history of osteoporosis, are thin, or , or who take certain medications such as cancer chemotherapy, seizure mediations and steroids are at increased risk of osteoporosis. The calcium requirements in women change with age. The National Institutes of Health (NIH) recommends: 1000mg elemental calcium for premenopausal women age 19-50 1200mg elemental calcium for postmenopausal women and all women over 50 Milk, yogurt, and cheese are rich natural sources of calcium and are the major food contributors in the [place]. For example, 8oz of milk (whole, lowfat or skim) contains about 300mg calcium, 8oz of yogurt contains 415mg. Nondairy sources include salmon and sardines and vegetables, such as [place] cabbage, kale, and broccoli. Foods fortified with calcium include many fruit juices, tofu and cereals. For more food calcium content information, visit http://ods.od.nih.gov/factsheets/calcium. Calcium supplements come in several different forms. Remember that the recommendations are for millgrams (mg) of elemental calcium which may be less than the total weight of the supplement. The amount of elemental calcium is required to be printed on the label. Calcium carbonate is the least expensive form. It must be taken on a full stomach to be properly absorbed. Some patients may experience gas or constipation. Calcium phosphate and calcium citrate may be taken either with or without food and tend to have less side effects but are generally more expensive. Because of its ability to neutralize stomach acid, calcium carbonate is found in some upgl-hcg-xdouvcc antacid products, such as Tums and Rolaids . Depending on its strength, each chewable pill or softchew provides 200 to 400 mg of elemental calcium. The percentage of calcium absorbed depends on the total amount of elemental calcium consumed at one time. Absorption is highest in doses <500mg. So a woman who takes 1,000mg/day of calcium from supplements should split the dose and take 500mg at two separate times during the day. Too much calcium can cause kidney stones, constipation, difficulty absorbing other nutrients and calcium buildup in blood vessels. Women under 50 should not exceed 2500mg/day (2000mg/day for women over 50) of calcium from food and supplements. Excessive alcohol and caffeine intake can inhibit absorption of calcium. Calcium can reduce the absorption of some medications if taken at the same time of day (bisphosphonates, thyroid medication, Phenytoin and other seizure medications, some antibiotics and iron supplements). Vitamin D promotes calcium absorption in the gut and maintains adequate blood levels of calcium and phosphate for normal bone growth and bone remodeling. Vitamin D also helps regulate cell growth as well as nerve, muscle and immune system function. Vitamin D is produced in the skin as a result of ultraviolet sunlight rays and must be altered in the liver and kidney to become its active form. Recommended intake according to the National Institutes of Health is 600 International Units (IU) for girls and women ages 1-70 and 800 IU for women over 70. Very few foods in nature contain vitamin D. The flesh of fatty fish (such as salmon, tuna, and mackerel) and fish liver oils are among the best sources. Small amounts of vitamin D are found in beef liver, cheese, mushrooms and egg yolks. Most people meet at least some of their vitamin D needs through exposure to sunlight. Season, time of day, length of day, cloud cover, smog, skin melanin content, and sunscreen are among the factors that affect UV radiation exposure and vitamin D synthesis. Despite the importance of the sun for vitamin D synthesis, it is prudent to limit exposure of skin to sunlight and avoid tanning beds. UV radiation is a carcinogen responsible for most of the estimated 1.5 million skin cancers that occur annually in the [place]. Lifetime cumulative UV damage to skin is also responsible for some age-associated dryness and other cosmetic changes. In supplements and fortified foods, vitamin D is available in two forms, D2 (ergocalciferol) and D3 (cholecalciferol). The two are equivalent at normal supplement doses. For women who require high supplement doses because of vitamin D deficiency, D3 may work better to raise blood levels. Some medications can prevent proper absorption of Vitamin D. These include laxatives, corticosteroids like prednisone, the seizure drugs phenobarbital and phenytoin, the weight-loss drug orlistat ( Xenical and AlliTM) and the cholesterol-lowering drug cholestyramine (Questran , LoCholest , and Prevalite ). Talk to your doctor about adjusting your recommended daily vitamin D dosage if you take these medications. You should not exceed 4000 mg of vitamin D supplementation daily unless specifically prescribed by your doctor. documented in this encounter [facility] History of Present illness Narrative 05-10-2023 Rupali Sage APRN.CNP - 05/10/2023 9:04 AM EDT Note Date & Type Note Facility 05-10-2023 History of Presen t illness Narrative [employer] Developer offered: Patient declines. Lyndsey is a 58 year old who presents for an annual gynecologic exam with complaints, . Vaginal and vulvar itching x 3 weeks - treated with Monistat 1 which did not help much. Now using hydrocortisone. No recent antibiotic use. Taking Farxiga. Used to use estrogen vaginal cream but stopped when health insurance did not cover it. Postmenopausal: Yes since age 45 HRT use: No. Last Pap: 2017 normal HPV: negative History of abnormal pap: No Last mammogram: today, pending History of abnormal mammogram: No Sexually active: No History of STDS: None Time with current partner: long-term History of ovarian cyst: Yes, had oophorectomy BSO 2016 Vaginal dryness - Yes Documentation from previous visit of 08/06/2021 was copied and pasted, documentation has been reviewed and edited as necessary for today's visit. 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: Sexual Activity: Not Currently; Male Contraception: No contraception data on record PAST MEDICAL HISTORY Diagnosis Date Depression Diabetes (HCC) Hypertension Multiple thyroid nodules Osteopenia 2018 left femoral neck Sinus trouble PAST SURGICAL HISTORY Procedure Laterality Date CARPAL TUNNEL Left 2014 DELIVERY ONLY , low transverse x 2 COLONOSCOPY FLX DX W/COLLJ SPEC WHEN PFRMD 07-19-13 and 2016 due 2025 EGD TRANSORAL BIOPSY SINGLE/MULTIPLE 07-19-13 and 2015 FOOT SURGERY HX Right 2021 HAND LEFT OP SURGERY 2018 LAPAROSCOPY SURG CHOLECYSTECTOMY 06/27/2013 OOPHORECTOMY PARTIAL OR TOTAL Bilateral 2016 FAMILY HISTORY Problem Relation Age of Onset Liver Disease Mother Hypertension Mother Brain Cancer Mother Osteoporosis Father Glaucoma Father Skin Cancer Father Hypertension Father No Known Problems Brother Diabetes Maternal Grandmother Heart Maternal Grandmother Diabetes Maternal Grandfather Heart Maternal Grandfather Thyroid Paternal Grandmother Osteoporosis Paternal Grandmother Glaucoma Paternal Grandmother Thyroid Paternal Aunt Glaucoma Paternal Uncle SOCIAL HISTORY Social History Tobacco Use Smoking status: Never Smokeless tobacco: Never Vaping Use Vaping Use: Never used Substance Use Topics Alcohol use: No Drug use: Never REVIEW OF SYSTEMS Abdomen: No abdominal pain, nausea, vomiting, diarrhea, or constipation. No bloating, early satiety, indigestion, or increased flatulence. Bladder: No dysuria, gross hematuria, urinary frequency, urinary urgency, or incontinence Breast: No breast lumps, nipple d/c, overlying skin changes, redness or skin retraction Allergies and current medication updated:Yes EXAM: BP 132/82 Ht 5' 5.5 (1.66m) Wt 183 lb (83.0kg) BMI 29.98 kg/(m^2). GENERAL: pleasant, female in no apparent distress HEENT: Normocephalic, atraumatic, mucus membranes moist, and no lesions NECK: Supple, full range of motion, no adenopathy, and thyroid normal DERMATOLOGY: Normal, without lesions, non-icteric, and non-hirsute BREAST: soft, non-tender, symmetric, no dominant mass, normal nipple-areolar complex, no lymphadenopathy, and no nipple discharge CHEST: Normal inspiratory effort ABDOMEN: soft, non-tender, and no masses PELVIC: external genitalia normal, normal Bartholin's glands, urethra, [place] Mandry's glands, no vulvar lesions, no cervical lesions, physiologic discharge present, normal appearing perineal body and perianal region. + vaginal atrophy BIMANUAL: uterus normal size, shape and consistency, no adnexal masses, and non-tender RECTOVAGINAL: deferred. NEURO: alert and oriented x3,exam grossly non-focal EXTREMITIES: normal ASSESSMENT/PLAN: 1) Health maintenance: Pap done with HPV. Mammogram ordered Mammogram up to date Nutrition, exercise and routine health maintenance exams reviewed. Calcium/Vitamin D supplementation information provided. Colon cancer screening: up to date with screening BMD: osteopenia, managed by bonding machine setter 2. Vulvovaginal itching - ICD9: 698.1, ICD10: L29.2 - BACT/ROBERTO CARLOS VAG GRAM STAIN 3. Postmenopausal atrophic vaginitis - ICD9: 627.3, ICD10: N95.2 - discussed treatment with vaginal hyaluronic acid or vaginal estrogen. Prefers Revaree hyaluronic acid vaginal suppositories - use explained and given ordering information. 4) Follow up one year or sooner as needed. Will notify of results. Rupali Sage APRN.CNP documented in this encounter [facility] Note 04-23-2023 Telephone Encounter - Danielle Mahajan RN - 04/23/2023 10:35 AM EDTTelephone Encounter - Rupali Sage APRN.CNP - 04/23/2023 10:32 AM EDTTelephone Encounter - Danielle Mahajan RN - 04/23/2023 10:18 AM EDT Note Date & Type Note Facility 04-23-2023 Miscellaneous Notes Formattin g of this note might be different from the original. PSS: Please contact patient to schedule mammogram. Thank you. Order filed. Please notify pt. Rupali Sage APRN.CNP Patient has upcoming annual exam on 05/10. Please file pended order. Danielle Mahajan RN Pt asking for mammo orders. Please call to schedule when placed. documented in this encounter [facility] Evaluation note Note Date & Type Note Facility documented in this encounter [facility] Evaluation note Note Date & Type Note Facility documented in this encounter [facility] Reason for referral (narrative) Diagnostic Procedure Only (Routine) - Authorized Note Date & Type Note Facility Referral ID Status Reason Start Date Expiration Date Visits Requested Visits Authorized [id number] Authorized Auto-Generat ed Referral 04/23/2023 05/22/2024 1 1 T [facility] Reason for referral (narrative) Diagnostic Procedure Only (Routine) - Pending Review Note Date & Type Note Facility Referral ID Status Reason Start Date Expiration Date Visits Requested Visits Authorized [id number] Pending Review Auto-Generat ed Referral 05/10/2023 06/08/2024 1 1 T [facility] Summary Purpose Family History Cerebrovascular Accident Status:Active Comment s:Paternal Grandfather. Coronary Artery Disease Status:Active Comments :Maternal Grandfather. Maternal Grandmother. Father. Diabetes Mellitus Type II Status:Active Commen ts:Maternal Grandfather. Maternal Grandmother. Father Still Living Status:Active Hypertension Status:Active Comments:Materna l Grandmother. Maternal Grandfather. Paternal Grandmother. Paternal Grandfather. Hypothyroidism Status:Active Comments:Paterna l Grandmother. Mother Still Living Status:Active Skin Cancer Status:Active Comments:Paterna l Uncle. Paternal Aunt. melanoma Advance Directives No Advanced Directives Records FoundNo Advanced Directives Records FoundNo Advanced Directives Records Found Additional Source Comments INFORMATION SOURCE (unrecogn ized section and content) DATE CREATED AUTHOR AUTHOR'S ORGANIZ ATION 08/18/[address] [facility] DATE CREATED AUTHOR AUTHOR'S ORGANIZ ATION 05/19/2023 [facility] Source Comments (unrecognize d section and content) In the event this informatio n is protected by the Federal Confidentiality of Alcohol and Drug Abuse Patient Records regulations: The Federal rules restrict any use of the information to criminally investigate or prosecute any alcohol or drug abuse patient.[facility] the event this information is protected by the Federal Confidentiality of Alcohol and Drug Abuse Patient Records regulations: The Federal rules restrict any use of the information to criminally investigate or prosecute any alcohol or drug abuse patient.[facility] the event this information is protected by the Federal Confidentiality of Alcohol and Drug Abuse Patient Records regulations: The Federal rules restrict any use of the information to criminally investigate or prosecute any alcohol or drug abuse patient.[facility] the event this information is protected by the Federal Confidentiality of Alcohol and Drug Abuse Patient Records regulations: The Federal rules restrict any use of the information to criminally investigate or prosecute any alcohol or drug abuse patient.[facility] Reason for Visit (unrecogniz ed section and content) Reason Comments [facility] Care Teams (unrecognized sec tion and content) Knot Cutter Relationship Specialty Start Date End Date Nahid Henson PA-C PCP - General Family Medicine 09/13/16 Knot Cutter Relationship Specialty Start Date End Date Nahid Henson PA-C PCP - General Family Medicine 09/13/16 Knot Cutter Relationship Specialty Start Date End Date Nahid Henson PA-C PCP - General Family Medicine 09/13/16 FOR RECORDS PERTAINING TO PATIENTS WHO ARE OR HAVE BEEN ENROLLED IN A CHEMICAL DEPENDENCY/SUBSTANCEABUSE PROGRAM, SOME INFORMATION MAY BE OMITTED. This clinical summary was aggregated from multiple sources. Caution should be exercised in using it in the provision of clinical care. This summary normalizes information from multiple sources, and as a consequence, information in this document may materially change the coding, format and clinical context of patient data. In addition, data may be omitted in some cases. CLINICAL DECISIONS SHOULD BE BASED ON THE PRIMARY CLINICAL RECORDS. [facility] [employer] [facility]. provides no warranty or guarantee of the accuracy or completeness of information in this document.
[2023-11-12 06:26] VITALS: BP 113/68; PULSE 80; RESP 18; TEMP 36.3; O2SAT 100; BMI 28.7
[2023-11-12] MEDS: Lactated Ringers 1,000 ML 15 ML IV (06:34)
--- NOTE | 2023-11-12 07:29 | DCINST_ITS ---
Discharge Instructions Diet Discharge Diet: Light diet - advance as tolerated Activity Weight Bearing Status: No weight bearing (No weightbearing left foot) Keep extremity elevated above heart level: Left Leg (Keep left foot elevated for at least 50 minutes of every hour) Dressing / Incision Call your doctor if your incision/area has: Continuous Slow Oozing, Sudden Increased Bleeding and Foul Smelling Discharge Call your doctor if you observe: Fever of 101 or Higher, Shortness of breath, Chest pain, Increased palpitations (irregular heartbeat), Calf discomfort and Uncontrolled pain Change Dressing in: do not change dressing Remove Dressing in: do not remove dressing Cleanse incision/area with: Keep Dressing Clean & Dry Follow Up Care Please Follow Up With: Mg Brooks DPM When: next week in office, sooner if needed Test Results: Test results from this visit will be discussed in further detail at your follow- up appointment, if applicable. Discharge Plan Admission Attending Provider: Mg Brooks Primary Care Provider: Charlene Hicks Discharge Orders/Prescriptions Prescriptions: New oxycodone-acetaminophen [Percocet] 5-325 mg tablet 1 - 2 tab PO Q6H PRN (Reason: pain) 4 Days Qty: 28 0RF Eliquis 2.5 mg tablet 2.5 mg PO Q12H Qty: 30 0RF amoxicillin-pot clavulanate [Augmentin] 500-125 mg tablet 1 tab PO Q12H Qty: 14 0RF No Action bupropion HCl 100 MG tablet 100 mg PO DAILY atenolol 50 MG tablet 100 mg PO DAILY dulaglutide 1.5 MG/0.5 ML pen injector 1.5 mg subcut MO rosuvastatin [Crestor] 40 mg Tablet 40 mg PO DAILY Probiotic 3 billion cell Capsule 3,000 mmu cells PO DAILY Rx Instructions: administer with a meal Farxiga 10 mg Tablet 10 mg PO DAILY Referrals / Follow Up: Charlene Hicks PA [Primary Care Provider] - Disposition Disposition (needs filled in before D/C Order can be placed): Home, Self Care
[2023-11-12] MEDS: Cefazolin 2 GM in 0.9% Normal Saline (100mL Bag) 100 ML IV (07:30)
--- NOTE | 2023-11-12 07:30 | BON_PTH ---
PATHOLOGY RESULTS PATIENT: VINCENZO EMERY [place] [facility] [place][id number] AGE/SX: 58/F ROOM: RE11/12/[address]: Dr. Mg Brooks DPM : 1965 BED: DIS: 11/12/2023 SPEC #: [id number] RECD: 11/12/23 12:33 STATUS: JORI RESanya #: [id number] BHARATHI: 11/12/23 07:[address]: Mg Brooks DEPT: SURGICAL PATHOLOGY RECD BY: Carla Kumar ENTERED: 11/12/23 12:35 SP TYPE: Bone OTHR DR: PHOEBE Mackey Tissues: Foot, NOS Procedures: Decalcification bone/plaque Surgery Specimen Level III HEADER OPERATION: Plantar fasciotomy with resection of infracalcaneal spur PRE-OP DIAGNOSIS: Plantar fasciitis with infracalcaneal spur, Achilles tendinopathy with retrocalcaneal spur TISSUE SUBMITTED: Cedric deformity left foot MICROSCOPIC DIAGNOSIS Left foot bone, Cedric deformity, excision: Pieces of bone with reactive changes. JEFRY:lesly 11/17/2023 MICROSCOPIC DESCRIPTION Slides are reviewed. GROSS DESCRIPTION Received in fixative is one container labeled with the patient's name and designated Cedric deformity left foot. The specimen consists of two pieces of bone measuring in aggregate 4.5 x 3.5 x 1.0 cm. Scientist sections are submitted in two cassettes after decalcification. / JEFRY:lesly 11/12/2023 TC:5 CPT: 05563, 31696
--- NOTE | 2023-11-12 07:30 | RAD_ITS ---
STUDY: X-RAY - LEFT FOOT CLINICAL: Female, 58 years old. PLANTAR FASCIOTOMY WITH RESECTION OF INFRACALCANEAL SPUR TECHNIQUE: 2 intraoperative spot images of the left foot. COMPARISON: Left foot radiographs dated 05/23/2021. FINDINGS: Before and after spot films of the left calcaneus was obtained. The images demonstrate successful removal of osseous spurs at the posterior calcaneal tuberosity and plantar calcaneal tuberosity. There is adjacent soft tissue gas, compatible with surgery. There is no demonstrated acute fracture. RAD/Foot 2 Views IMPRESSION: Successful removal of osseous spurs at the posterior calcaneal tuberosity and plantar calcaneal tuberosity. Electronically Signed: Kang Burns MD at 10:29 EST ,
--- NOTE | 2023-11-12 07:32 | OP.PCM_ITS ---
Report of Operation Date of Procedure: 11/12/23 Pre-Operative Diagnosis: Plantar fasciitis left foot with infracalcaneal spur Retrocalcaneal spur Achilles tendinitis, left Post-Operative Diagnosis: Same Surgery/Procedure Performed:: Detact/Reattach achilles tendon with debridement and resection of Cedric's deformity, left Plantar fasciotomy with resection of infracalcaneal spur, left Surgeon: Mg Brooks prior authorization technician: Cali Type of Anesthesia: General and Local Specimen's removed: Resected Cedric's deformity left foot sent to pathology Estimated Blood Loss (mL): 5mL Description of Procedure: Indications: 58 year old female with chronic left heel pain, to the plantar heel and achilles tendon despite nonsurgical care. She continues to have pain and symptoms. She continues to have pain which is bothering her and affecting her daily activities. Because symptoms persist, she has elected to undergo the surgical procedures. Xrays and MRI were obtained and reviewed pre op. The procedures were discussed with her in great detail, reviewed the possible benefits vs risks and potential complications. Typical post op recovery was reviewed with her. The goals and the expectations were reviewed with her in detail. The consent forms were reviewed with her in detail, and she freely signed them. No guarantees were given or implied. All of her questions were answered. Operative Procedure: The patient was brought back into the operating room. A time out was performed and the patient was properly identified and the surgical plan was confirmed. The patient received 2g of IV Ancef for antibiotic prophylaxis. A well padded pneumatic tourniquet was applied around the left thigh. The patient received general per the anesthesiologist.? The patient was placed on the operating room table in the prone position, with good padding and offloading for all of the bony prominences. She was carefully secured to the operating room table with a safety belt around her waist. The left foot/ankle/leg were scrubbed, prepped, draped in the usual aseptic fashion. The left foot was elevated for 3 minutes and the thigh pneumatic tourniquet was inflated to 300mmHg. Plantar fasciotomy with resection of infracalcaneal spur.: A skin incision was made to the medial hindfoot at the level of the origin of the plantar fascia on the inferior calcaneus. Careful dissection was completed down through the subcutaneous tissue layer. A plane was created superiorly and inferiorly around the plantar fascia. There was significant thickening, tightness, and fibrosis of the plantar fascia consistent with chronic plantar fasciitis. The medial 50% of the plantar fascia was released via a plantar fasciotomy. The infracalcaneal spur was identified and was resected using a powered sagittal rasp, resection was confirmed using intraoperative fluoroscopy. The site was flushed out with copious amounts of normal saline solution. The skin was reapproximated using 3-0 Nylon. Detach/Reattach achilles tendon with debridement and resection of Cedric's deformity: Attention was directed to the posterior heel. There was a large pal pable exostosis present at the level of the posterior calcaneus consistent with Cedric's deformity as well as retrocalcaneal exostosis, and insertional achilles tendinosis was present as well. A linear incision was made using a 15 blade to the skin of the posterior aspect of the distal Achilles tendon and posterior calcaneus. Careful blunt dissection was completed down through the subcutaneous tissue layer, down to the Achilles tendon and posterior calcaneus.The distal Achilles tendon was incised at the level of the distal midline, and was partially reflected off of the central posterior calcaneus exposing the retrocalcaneal spur and Cedric deformity. The retrocalcaneal spur and the Cedric deformity were resected using a powered sagittal saw and a powered rasp, the resected bone was sent to pathology. Intraoperative fluoroscopy was obtained confirming proper resection of the spur and Cedric deformity. The site was flushed out with copious amounts of normal saline solution. The Achilles tendon was reattached to the central portion of the posterior calcaneus using 1 Arthrex Speedbridge in standard fashion. 2 pilot boat deckhand holes were created for the 4.75mm BioComposite Swivelock anchors at the level of 1 cm proximal to the distal insertion of the Achilles tendon and central to each half of the tendon. The pilot boat deckhand holes were tapped with the 4.75mm tap. The two 4.75mm BioComposite Swivel anchors were inserted. The suture was passed through the Achilles tendon on each side. The 2 distal holes were prepared on the posterior calcaneus distal to the insertion of the Achilles tendon with the drill and then the tap. One suture tail from each of the proximal anchors were retrieved and passed through the 2 SwiveLock anchors. The tension was adjusted to the appropriate tension and the 4.75 mm Swivelock anchors were inserted into the distal prepared bone sites. The suture tails were cut flush with the Swivelock anchors. The Swivelock anchors were flush with the bone. The FiberWire suture from each Swivelock anchor was also passed through the Achilles tendon and tied for extra stability and repair. 3-0 Vicryl was also used to reapproximate the midline Achilles tendon incision. There was excellent repair of the Achilles tendon, with negative Simon test. The surgical site was flushed out with copious amounts of normal saline solution. The subcutaneous tissue layer was reapproximated using 3-0 Vicryl. the skin was reapproximated using 3-0 Nylon. The pneumatic tourniquet was deflated at 90 minutes, there was immediate return of warmth and perfusion to the foot and to all toes on the foot with normal temperature present. CFT < 2 seconds to all toes. A total of 23mL of 0.5% bupivacaine plain was given as a local nerve block around the surgical site. A dressing was applied which consisted of Betadine soaked adaptic, 4x4 gauze, Kerlix and ivett bandage. All vital structures were properly identified and protected as necessary for this procedure. Also intraoperative fluoroscopy was used to pump servicer helper in visualization of resection of Cedric's deformity and infracalcaneal spur. The patient tolerated the above operative procedure well at the anesthesia well with no complication. The patient was transported to the recovery room with vital signs stable and in good condition. Post operative orders were placed. Post operative instructions were reviewed with her as well as with her who was present with her today. No weightbearing left foot, keep foot elevated for at least 50 minutes of every hour, keep dressing clean, dry and intact. Prescription for percocet 5/325mg was prescribed: 1-2 tabs PO q 6 hours PRN pain for pain control, Augmentin 500/125mg PO q 12 hours, and Apixaban 2.5mg PO twice a day. She is to follow up with me within 1 week or sooner if needed. Grafts/Implants Used: Arthrex Speedbridge Complications None
[2023-11-12 07:35] LABS: Bedside Glucose 131 mg/dL (74-106)
[2023-11-12] MEDS: Bupivacaine Mpf 0.5% 30 ML VIAL (09:35)
[2023-11-12 09:50] VITALS: BP 111/63; BP 113/68; PULSE 87; RESP 12; TEMP 35.9; O2SAT 94
[2023-11-12 09:55] VITALS: BP 108/66; BP 113/68; PULSE 85; RESP 12; O2SAT 96
[2023-11-12 10:00] VITALS: BP 108/68; BP 113/68; PULSE 85; RESP 12; O2SAT 96
[2023-11-12 10:15] VITALS: BP 113/68; BP 118/73; PULSE 73; RESP 18; TEMP 35.8; O2SAT 99
[2023-11-12 10:31] LABS: Bedside Glucose 156 mg/dL (74-106)
[2023-11-12 11:28] VITALS: BP 113/68; BP 134/85; PULSE 93; RESP 16; TEMP 36.1; O2SAT 94
== END 2023-11-12 11:39 | disposition home or self-care (01) ==
LOC: SDC 05:53 → AC 06:32
PROVIDERS: Referring Provider Podiatrist; Visit Provider Podiatrist
PROC: (CPT 28119; principal; 2023-11-12 07:15)
DX: M72.2 Plantar fascial fibromatosis (principal); E11.9 Type 2 diabetes mellitus without complications; M76.62 Achilles tendinitis, left leg; K21.9 Gastro-esophageal reflux disease without esophagitis; G47.33 Obstructive sleep apnea (adult) (pediatric); E78.1 Pure hyperglyceridemia; F41.9 Anxiety disorder, unspecified; I10 Essential (primary) hypertension; Z86.16 Personal history of COVID-19; Z79.899 Other long term (current) drug therapy
CPT/HCPCS: 28119; 27650; 01480; 36415; 73620; 76000; 82962; 85025; 88304; 88305; 88311; J7120; J2405

== ENCOUNTER → 2024-01-10 | Outpatient (CLI) | payer BC, SELFPAY ==
[2024-01-10 15:15] LABS: ALB/GLOB Ratio 1.1 RATIO (0.9-2.4); AST(SGOT) 28 U/L (15-37); Alanine Aminotransfer ALT/SGPT 46 U/L (13-56); Albumin, Serum 3.9 g/dL (3.2-5.0); Alkaline Phosphatase 112 U/L (45-117); Anion Gap 5 (5-15); BUN 14 mg/dL (7-18); BUN/Creat Ratio 17.8 RATIO (10-20); Calcium,Total 9.2 mg/dL (8.5-10.1); Chloride 110 mmol/L (98-107); Creatinine, Serum 0.79 mg/dL (0.55-1.02); EST Glomerular Filtration Rate 80 mL/min (>60); Est Glom Filt Rate - Afr Amer 96 mL/min (>60); Globulin 3.4 g/dL (2.2-4.2); Glucose 134 mg/dL (74-106); Potassium 4.3 mmol/L (3.5-5.1); Protein, Total 7.3 g/dL (6.4-8.2); Sodium Level 141 mmol/L (136-145)
[2024-01-10 15:19] LABS: Hemoglobin A1c 6.7 % (3.8-5.6)
== END | disposition home or self-care (01) ==
LOC: MFPLAB 11:49
DX: E11.9 Type 2 diabetes mellitus without complications (principal)
CPT/HCPCS: 36415; 80053; 83036

== ENCOUNTER 2024-02-07 10:30 | Outpatient (RCR) | payer BC, SELFPAY ==
--- NOTE | 2024-01-10 11:35 | HP.PTEVAL ---
Patient's Visit Information Visit Information Visit Information: VINCENZO EMERY is a 58 year old F referred to Physical Therapy by Dr. Mg Brooks DPM with a diagnosis of L plantar fasciotomy, achilles debridement, and heel spur removal 11/12/23. Date of Evaluation: 01/10/24 Physical Therapist: Flex De La Cruz, PT, ATC Visit Plan Frequency: 2-3x /Week Duration: 4-6 Weeks Plan: L ankle stretching and strengthening, PROM and mobs, balance and strengthening, bike, and HEP Subjective Subjective: DOS; 11/12/23. Pt had plantarfascitomy and Achilles tendon debridement with removal of heel spurs. Pt reports her pain is still present, but is much better than prior to surgery. Pt reports she was NWBing for 4 weeks, and has been in a CAM boot for 4 weeks. Pt reports she had the same surgery performed on her R foot last year. Pt notes she is weaning out of her CAM boot at this time. Pt denies tingling or numbness at this time. Pt reports no sleep difficulty at this time secondary to pain. 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 Pt has stairs into her house that she is able to negotiate one step at a time. 2/10 pain while sitting here in the clinic, increases to 3/10 at worst (when she has been on her feet for a while) Pain L foot pain: Pain Intensity (Out of 10): 2 Pain Intensity Range: 3 Objective Objective: Neuro: B LE sensation is WNL to light touch. Girth of foot: R LE 50 cm, L LE 49.5 cm ROM: L ankle DF= 5, PF= 40 Degrees; R ankle DF= 5, PF= 60 degrees MMT: L ankle DF= 17, PF= 18 #F; R ankle DF= 39, PF= 52 #F Gait: Pt is able to ambulate 680 feet until having to rest secondary to increased pain Balance/Special Test Scores Lower Extremity Functional Score: 33 Goals Goal 1:: Decrease L foot pain x 50% to aid with standing tolerance Goal Time Frame: 4-6 Weeks Goal 2:: Increase L ankle DF ROM x 10 degrees to aid with preventing future episodes of L foot pain Goal Time Frame: 4-6 Weeks Goal 3:: Increase L ankle strength x 10 #F to aid with stair negotiation Goal Time Frame: 4-6 Weeks Goal 4:: I with HEP Goal Time Frame: 4-6 Weeks Rehabilitation Potential Physical Therapy Diagnosis: L foot pain, weakness, and limited ROM secondary to L foot surgery Rehabilitation Potential: Good Anticipated Interventions Patient/Client Instruction: Educate patient on: Condition and Plan of Care For the Purpose of:: To improve self management Therapeutic Exercise to Include: Strength training, Endurance training, Balance training, Flexibilty training, Gait and locomotor training, Passive ROM and Active ROM For the Purpose of:: To decrease pain, To increase ROM and To improve muscle performance and motor function Cryotherapy (ice pack, ice massage): Yes For the Purpose of:: To decrease pain Text: Thank you for the opportunity to evaluate your patient. For Medicare and Medicare HMO plans, please review the plan of care and approve it. It will need to be FAXED BACK to us at [phone] for Medicare purposes. For Medicare only, by signing this I certify the plan of care. Please let me know if there are questions or concerns regarding this plan of care. Physician Signature: Date:
--- NOTE | 2024-02-07 11:32 | HP.PTDCSUM ---
Discharge Summary D/C summary: It has been my pleasure to treat VINCENZO EMERY referred by Dr. Mg Brooks, AMISHA, with the diagnosis of L plantar fasciotomy, achilles debridement, and heel spur removal 11/12/23 for a total of 10 visit(s). Discharge Date: Please see the following information for a summary of their discharge status. Subjective Subjective: I think I am ready to be done. I still know w2hen I need to sit down Pain L foot pain: Pain Intensity (Out of 10): 1 Overall Improvement % Improvement: 95 Objective Objective/Function: L foot pain is 1/10 L ankle MMT: DF= 40, PF= 50 #F L ankle DF ROM= 12 #F Pt is I with HEP Goals Goal 1:: Decrease L foot pain x 50% to aid with standing tolerance Goal Progress: Goal Met Goal 2:: Increase L ankle DF ROM x 10 degrees to aid with preventing future episodes of L foot pain Goal 3:: Increase L ankle strength x 10 #F to aid with stair negotiation Goal 4:: I with HEP Goal Progress: Goal Met Plan Plan: Discharge to HEP D/C Information d/c sentence: If there are questions or concerns regarding this patient's physical therapy, please feel free to call me at [phone]. Thank you for the referral of this patient. Sincerely, Flex De La Cruz, PT, ATC Balance/Gait/Functional tests Balance/Special Test Scores Lower Extremity Functional Score: 52 Improvement % Improvement: 95
== END 2024-02-07 19:00 | disposition home or self-care (01) ==
LOC: PT 10:30
PROVIDERS: Referring Provider Podiatrist; Visit Provider Podiatrist
DX: Z98.890 Other specified postprocedural states (principal)
CPT/HCPCS: 97110; 97140; 97161

== ENCOUNTER → 2024-04-08 | Outpatient (CLI) | payer BC, SELFPAY ==
[2024-04-08 08:30] LABS: Microalbumin,Random Urine 19.2 mg/L (NO RANGE EST.); Microalbumin:Creatinine Ratio 10.3 mg/g CRE (<30 mg/g CRE)
[2024-04-08 08:36] LABS: ALB/GLOB Ratio 1.2 RATIO (0.9-2.4); AST(SGOT) 22 U/L (15-37); Alanine Aminotransfer ALT/SGPT 37 U/L (13-56); Albumin, Serum 3.7 g/dL (3.2-5.0); Alkaline Phosphatase 125 U/L (45-117); Anion Gap 5 (5-15); BUN 13 mg/dL (7-18); BUN/Creat Ratio 16.2 RATIO (10-20); Calcium,Total 8.8 mg/dL (8.5-10.1); Chloride 110 mmol/L (98-107); EST Glomerular Filtration Rate 78 mL/min (>60); Est Glom Filt Rate - Afr Amer 94 mL/min (>60); Globulin 3.2 g/dL (2.2-4.2); Glucose 131 mg/dL (74-106); Magnesium 2.2 mg/dL (1.6-2.6); Protein, Total 6.9 g/dL (6.4-8.2); Sodium Level 140 mmol/L (136-145)
[2024-04-08 09:39] LABS: Hemoglobin A1c 6.6 % (3.8-5.6)
[2024-04-10 07:51] LABS: Vitamin D,25 Hydroxy 36.8 ng/mL
== END | disposition home or self-care (01) ==
LOC: LAB 07:33
PROVIDERS: Referring Provider Internal Medicine Endocrinology, Diabetes & Metabolism; Visit Provider Internal Medicine Endocrinology, Diabetes & Metabolism
DX: E11.9 Type 2 diabetes mellitus without complications (principal); E55.9 Vitamin D deficiency, unspecified
CPT/HCPCS: 36415; 80053; 82043; 82306; 82570; 83036; 83735

== ENCOUNTER → 2024-07-11 | Outpatient (CLI) | payer BC, SELFPAY ==
[2024-07-11 09:16] LABS: (24 HR) Urine Calcium 176.4 mg/24 HR (42.0-353.0); 24HR UR TOTAL VOLUME 2100 ml; 24HR. Urine Creatinine 1.31 g/24 HR (0.70-1.90); 24Hr.Lytes Total Volume 2100 mL; Calcium Urine pH Range 1; Sodium 24 HR UR 95 mmol/24h (40-220); Urine Calcium (Random) 8.4 mg/dL (Not Estab.); Urine Sodium 45 mmol/L (Not Establ.)
[2024-07-11 09:16] LABS: PTHIN 87.6 pg/mL (18.4-80.1)
[2024-07-11 09:21] LABS: ALB/GLOB Ratio 1.1 RATIO (0.9-2.4); AST(SGOT) 26 U/L (15-37); Alanine Aminotransfer ALT/SGPT 40 U/L (13-56); Albumin, Serum 3.6 g/dL (3.2-5.0); Alkaline Phosphatase 111 U/L (45-117); Anion Gap 6 (5-15); BUN 12 mg/dL (7-18); BUN/Creat Ratio 14.6 RATIO (10-20); Calcium,Total 8.9 mg/dL (8.5-10.1); Chloride 108 mmol/L (98-107); Cholesterol 100 mg/dL (200); Creatinine, Serum 0.82 mg/dL (0.55-1.02); EST Glomerular Filtration Rate 76 mL/min (>60); Est Glom Filt Rate - Afr Amer 92 mL/min (>60); Globulin 3.4 g/dL (2.2-4.2); Glucose 146 mg/dL (74-106); High Density Lipoprotein 45 mg/dL; Magnesium 2.3 mg/dL (1.6-2.6); Potassium 3.6 mmol/L (3.5-5.1); Sodium Level 141 mmol/L (136-145); Triglycerides 157 mg/dL; Very Low Density Lipoprotein 31 mg/dL (5-40); Vitamin D,25 Hydroxy 36.4 ng/mL
== END | disposition home or self-care (01) ==
PROVIDERS: Referring Provider Internal Medicine Endocrinology, Diabetes & Metabolism; Visit Provider Internal Medicine Endocrinology, Diabetes & Metabolism
DX: M85.89 Other specified disorders of bone density and structure, multiple sites (principal); E11.9 Type 2 diabetes mellitus without complications; E78.2 Mixed hyperlipidemia; E55.9 Vitamin D deficiency, unspecified
CPT/HCPCS: 36415; 80053; 80061; 81050; 82306; 82340; 82570; 83036; 83735; 83970; 84300; 84443

== ENCOUNTER → 2024-08-04 | Outpatient (CLI) | payer BC, SELFPAY ==
[2024-08-04 16:46] LABS: Anion Gap 4 (5-15); BUN 13 mg/dL (7-18); BUN/Creat Ratio 17.3 RATIO (10-20); Calcium,Total 9.2 mg/dL (8.5-10.1); Chloride 105 mmol/L (98-107); Creatinine, Serum 0.75 mg/dL (0.55-1.02); EST Glomerular Filtration Rate 84 mL/min (>60); Est Glom Filt Rate - Afr Amer 102 mL/min (>60); Glucose 142 mg/dL (74-106); Potassium 3.7 mmol/L (3.5-5.1); Sodium Level 138 mmol/L (136-145)
[2024-08-04 16:47] LABS: PTHIN 62.6 pg/mL (18.4-80.1)
== END | disposition home or self-care (01) ==
LOC: LAB 15:48
PROVIDERS: Referring Provider Internal Medicine Endocrinology, Diabetes & Metabolism; Visit Provider Internal Medicine Endocrinology, Diabetes & Metabolism
DX: E21.5 Disorder of parathyroid gland, unspecified (principal); E11.9 Type 2 diabetes mellitus without complications; E78.2 Mixed hyperlipidemia; E04.2 Nontoxic multinodular goiter; E55.9 Vitamin D deficiency, unspecified
CPT/HCPCS: 36415; 80048; 83970

== ENCOUNTER → 2024-10-31 | Outpatient (CLI) | payer BC, SELFPAY ==
[2024-10-31 11:34] LABS: PTHIN 65.9 pg/mL (18.4-80.1)
[2024-10-31 11:36] LABS: ALB/GLOB Ratio 1.2 RATIO (0.9-2.4); AST(SGOT) 24 U/L (15-37); Alanine Aminotransfer ALT/SGPT 34 U/L (13-56); Albumin, Serum 3.7 g/dL (3.2-5.0); Alkaline Phosphatase 104 U/L (45-117); Anion Gap 1 (5-15); BUN 13 mg/dL (7-18); BUN/Creat Ratio 15.6 RATIO (10-20); Calcium,Total 8.7 mg/dL (8.5-10.1); Chloride 107 mmol/L (98-107); Creatinine, Serum 0.83 mg/dL (0.55-1.02); EST Glomerular Filtration Rate 74 mL/min (>60); Est Glom Filt Rate - Afr Amer 90 mL/min (>60); Globulin 3.2 g/dL (2.2-4.2); Glucose 181 mg/dL (74-106); Protein, Total 6.9 g/dL (6.4-8.2); Sodium Level 139 mmol/L (136-145)
[2024-10-31 11:38] LABS: Vitamin D,25 Hydroxy 34.5 ng/mL
[2024-10-31 11:40] LABS: Hemoglobin A1c 7.2 % (3.8-5.6)
== END | disposition home or self-care (01) ==
LOC: LAB 10:47
PROVIDERS: Referring Provider Internal Medicine Endocrinology, Diabetes & Metabolism; Visit Provider Internal Medicine Endocrinology, Diabetes & Metabolism
DX: E11.9 Type 2 diabetes mellitus without complications (principal); E21.5 Disorder of parathyroid gland, unspecified; E55.9 Vitamin D deficiency, unspecified
CPT/HCPCS: 36415; 80053; 82306; 83036; 83970

== ENCOUNTER → 2025-02-09 | Outpatient (CLI) | payer BC, SELFPAY ==
[2025-02-09 16:47] LABS: Hemoglobin A1c 7.7 % (<=5.6)
[2025-02-09 16:57] LABS: ALB/GLOB Ratio 1.7 RATIO (0.9-2.4); AST(SGOT) 28 U/L (<=31); Alanine Aminotransfer ALT/SGPT 36 U/L (<=34); Albumin, Serum 4.1 g/dL (3.4-4.8); Alkaline Phosphatase 103 U/L (35-104); Anion Gap 10 (5-15); BUN 15 mg/dL (4-19); BUN/Creat Ratio 18.9 RATIO (10-20); Calcium,Total 8.9 mg/dL (7.6-11.0); Carbon Dioxide 23.3 mmol/L (21.0-32.0); Chloride 105 mmol/L (98-108); Creatinine, Serum 0.82 mg/dL (0.70-1.20); EST Glomerular Filtration Rate 82 (>60); Globulin 2.4 g/dL (2.2-4.2); Glucose 155 mg/dL (70-99); Potassium 4.1 mmol/L (3.3-5.1); Protein, Total 6.5 g/dL (5.9-8.4); Sodium Level 138 mmol/L (133-145); Total Bilirubin 0.34 mg/dL (0.00-1.30)
[2025-02-09 18:12] LABS: Microalbumin,Random Urine < 12.0 mg/L (NO RANGE EST.); Microalbumin:Creatinine Ratio UNABLE TO CALCULATE mg/g CRE
== END | disposition home or self-care (01) ==
LOC: LAB 15:48
PROVIDERS: Referring Provider Internal Medicine Endocrinology, Diabetes & Metabolism; Visit Provider Internal Medicine Endocrinology, Diabetes & Metabolism
DX: E11.65 Type 2 diabetes mellitus with hyperglycemia (principal)
CPT/HCPCS: 36415; 80053; 82043; 82570; 83036

== ENCOUNTER → 2025-05-05 | Outpatient (CLI) | payer BC, SELFPAY ==
--- OUTSIDE RECORDS SUMMARY | 2025-05-05 07:07 | XMS RPT_ITS | CCD ---
Author Organization [facility] Care Team Providers Care Vulcanized Fiber Unit Operator Name Role Phone Lindseyreece Linsey Frederick Unavailable Cristobal Ewing Unavailable DARRELL BALLESTEROS Primary Care Unavailable DARRELL BALLESTEROS Attending Unavailable CAPONE, CHARLENE PA-C Consulting Unavailable DARRELL BALLESTEROS Admitting Unavailable PROVIDER, UNKNOWN Consulting Unavailable CAPONE, CHARLENE PA-C Consulting Unavailable MARIA TERESA VELEZ PAC Admitting Unavailable MARIA TERESA VELEZ PAC Primary Care Unavailable MARIA TERESA VELEZ PAC Attending Unavailable PROVIDER, UNKNOWN Consulting Unavailable CAPONE, CHARLENE PA-C Consulting Unavailable WILISACHA, RIVER G Attending Unavailable WIETECHA, RIVER G Admitting Unavailable WIETECHA, RIVER G Primary Care Unavailable PROVIDER, UNKNOWN Consulting Unavailable MARIA TERESA VELEZ PAC Admitting Unavailable MARIA TERESA VELEZ PAC Primary Care Unavailable MARIA TERESA VELEZ PAC Attending Unavailable CAPONE, CAHRLENE PA-C Consulting Unavailable PROVIDER, UNKNOWN Consulting Unavailable CAPONE, CHARLENE PA-C Consulting Unavailable WIETECHA, RIVER G Primary Care Unavailable WIETECHA, RIVER G Attending Unavailable WIETECHA, RIVER G Admitting Unavailable PROVIDER, UNKNOWN Consulting Unavailable CAPONE, CHARLENE PA-C Consulting Unavailable WIETECHA, RIVER G Primary Care Unavailable WIETECHA, RIVER G Attending Unavailable WIETECHA, RIVER G Admitting Unavailable PROVIDER, UNKNOWN Consulting Unavailable CAPONE, CHARLENE PA-C Consulting Unavailable WIETECHA, RIVER G Primary Care Unavailable WILISACHA, RIVER G Attending Unavailable WIETECHA, RIVER G Admitting Unavailable PROVIDER, UNKNOWN Consulting Unavailable Natividad SANDHU-CDamari Primary Care Provider [phone] Kurt PA-C, Charlene J Unavailable [phone] Orthopedic Provider Unavailable Unavailable ANGEL Diabetic Counseling, . Unavailable Neuro-Surgery Provider Unavailable Unavailab le Presley (Vista) MD, Dr. Kyle Unavailable Livia MCCAIN, Dr. Salas Unavailable Endocrinology Provider Unavailable Unavailab martha Bridges MD, Yolanda Ignacio Unavailable Natividad PANDA, Damari Baldwin Unavailable Lucy C.O.D. CLERK, Madison Unavailable Mary Benito Unavailable Donis GIMENEZ, Pam Unavailable Vess C.O.D. CLERK, Tex L Unavailable Unavailable Nereyda RN, Violet Junior Unavailable Unavailable Tegan C.O.D. CLERK, Yolanda M Unavailable Unavailab martha Valladares C.O.D. CLERK, Naa Unavailable Unavailabl arlyn Kebede PA-C, Patti Rothman Unavailable [phone] Breezy GIMENEZ, Damari Shirley Unavailable Unavaila ble Zabala C.O.D. CLERK, Karen Unavailable Unavailable Yusuf C.O.D. CLERK, Chely Unavailable Unavailable Martfelipe C.O.D. CLERK, Valerie Unavailable Unavailable Kwame C.O.D. CLERK, Amanda Unavailable Unavailable Ganesh SIBLEY, Avril Unavailable Unavailable Girish PANDA, Wiliam Ignacio Unavailable Deng SIBLEY, Chely Unavailable Unavailable Piyush SIBLEY, Itzel Unavailable Unavailable Unavailable Unavailable Dania Michel MA Unavailable Unavailable Natividad PANDA, Damari Baldwin Primary Care Provider Unavailable Primary Care Provider UnavailALONDRA Henry Attending Unavailable SELF, SELF Referring Unavailable ALONDRA LITTLE Referring Unavailable ALONDRA LITTLE Attending Unavailable Danisha Lal Unavailable Unavailable Hyacinth Mahajan Unavailable Unavailable Charlene De La Cruz Primary Care Provider Suhas BARTON, Dr. Holman Attending Provider Dr. River Dai DO Referring Provider Charlene Capone Primary Care Unavailable River Dai Referring Unavailable River Dai Attending Unavailable Charlene Capone Primary Care Unavailable River Dai Attending Unavailable River Dai Referring Unavailable Charlene Capone Primary Care Unavailable Maria Teresa Dooley Unavailable River Dai Attending Unavailable River Dai Referring Unavailable River Dai Attending Unavailable Capone, Charlene Primary Care Unavailable Suhas River Referring Unavailable Suhas River Attending Unavailable Capone, Charlene Primary Care Unavailable [place] Referring Unavailable Capone, Charlene Primary Care Provider [phone] RUPALI SAGE Referring Unavailable DAMARI HENSON Primary Care Unavailable DAMARI HENSON Primary Care Unavailable RUPALI SAGE Attending Unavailable RAISSA GRIFFITH Attending Unavailable CAPONE, CHARLENE Primary Care Unavailable Allergies Allergy Classification Reported Allergen(s) Allergy Type Date of Onset Reaction(s) Facility NEGATED: Highlighted row has been ruled out! (1 source) 01-28-2022 [employer] NEGATED: Highlighted row has been ruled out! (1 source) [employer] NEGATED: Highlighted row has been ruled out! (1 source) 01-28-2022 [employer] NEGATED: Highlighted row has been ruled out! (1 source) [employer] NEGATED: Highlighted row has been ruled out! (1 source) 01-28-2022 [employer] NEGATED: Highlighted row has been ruled out! (1 source) [employer] [facility] [facility] [employer] NEGATED: Highlighted row has been ruled out! (1 source) 01-28-2022 [employer] [facility] NEGATED: Highlighted row has been ruled out! (1 source) [employer] [facility] [employer] NEGATED: Highlighted row has been ruled out! (1 source) 01-28-2022 [employer] NEGATED: Highlighted row has been ruled out! (1 source) [employer] [facility] [employer] NEGATED: Highlighted row has been ruled out! (1 source) 01-28-2022 [employer] NEGATED: Highlighted row has been ruled out! (1 source) [facility] NEGATED: Highlighted row has been ruled out! (1 source) 01-28-2022 [facility] NEGATED: Highlighted row has been ruled out! (1 source) [facility] NEGATED: Highlighted row has been ruled out! (1 source) 01-28-2022 [facility] NEGATED: Highlighted row has been ruled out! (1 source) [facility] NEGATED: Highlighted row has been ruled out! (1 source) 01-28-2022 [facility] NEGATED: Highlighted row has been ruled out! (1 source) [facility] NEGATED: Highlighted row has been ruled out! (1 source) 01-28-2022 [facility] NEGATED: Highlighted row has been ruled out! (1 source) [facility] NEGATED: Highlighted row has been ruled out! (1 source) 01-28-2022 [facility] NEGATED: Highlighted row has been ruled out! (1 source) [facility] NEGATED: Highlighted row has been ruled out! (1 source) 01-28-2022 [facility] NEGATED: Highlighted row has been ruled out! (1 source) [facility] NEGATED: Highlighted row has been ruled out! (1 source) 01-28-2022 [facility] NEGATED: Highlighted row has been ruled out! (1 source) [facility] NEGATED: Highlighted row has been ruled out! (1 source) 01-28-2022 [facility] NEGATED: Highlighted row has been ruled out! (1 source) [facility] NEGATED: Highlighted row has been ruled out! (1 source) 01-28-2022 [facility] NEGATED: Highlighted row has been ruled out! (1 source) [facility] NEGATED: Highlighted row has been ruled out! (1 source) 01-28-2022 [facility] NEGATED: Highlighted row has been ruled out! (1 source) [facility] NEGATED: Highlighted row has been ruled out! (1 source) 01-28-2022 [facility] NEGATED: Highlighted row has been ruled out! (1 source) [facility] NEGATED: Highlighted row has been ruled out! (1 source) 01-28-2022 [facility] NEGATED: Highlighted row has been ruled out! (1 source) [facility] NEGATED: Highlighted row has been ruled out! (1 source) 01-28-2022 [facility] NEGATED: Highlighted row has been ruled out! (1 source) [facility] NEGATED: Highlighted row has been ruled out! (1 source) 01-28-2022 [facility] NEGATED: Highlighted row has been ruled out! (1 source) [facility] NEGATED: Highlighted row has been ruled out! (1 source) 01-28-2022 [facility] NEGATED: Highlighted row has been ruled out! (1 source) [facility] NEGATED: Highlighted row has been ruled out! (1 source) 01-28-2022 [facility] NEGATED: Highlighted row has been ruled out! (1 source) [facility] NEGATED: Highlighted row has been ruled out! (1 source) 01-28-2022 [facility] NEGATED: Highlighted row has been ruled out! (1 source) [facility] NEGATED: Highlighted row has been ruled out! (1 source) 01-28-2022 [facility] NEGATED: Highlighted row has been ruled out! (1 source) [facility] NEGATED: Highlighted row has been ruled out! (1 source) 01-28-2022 [facility] NEGATED: Highlighted row has been ruled out! (1 source) [facility] NEGATED: Highlighted row has been ruled out! (1 source) 01-28-2022 [facility] NEGATED: Highlighted row has been ruled out! (1 source) [facility] NEGATED: Highlighted row has been ruled out! (1 source) 01-28-2022 [facility] NEGATED: Highlighted row has been ruled out! (1 source) [facility] NEGATED: Highlighted row has been ruled out! (1 source) 01-28-2022 [facility] NEGATED: Highlighted row has been ruled out! (1 source) [facility] NEGATED: Highlighted row has been ruled out! (1 source) 01-28-2022 [facility] NEGATED: Highlighted row has been ruled out! (1 source) [facility] NEGATED: Highlighted row has been ruled out! (1 source) 01-28-2022 [facility] NEGATED: Highlighted row has been ruled out! (1 source) [facility] NEGATED: Highlighted row has been ruled out! (1 source) 01-28-2022 [facility] NEGATED: Highlighted row has been ruled out! (1 source) [facility] NEGATED: Highlighted row has been ruled out! (1 source) 01-28-2022 [facility] NEGATED: Highlighted row has been ruled out! (1 source) [facility] NEGATED: Highlighted row has been ruled out! (1 source) 01-28-2022 [facility] NEGATED: Highlighted row has been ruled out! (1 source) [facility] NEGATED: Highlighted row has been ruled out! (1 source) 01-28-2022 [facility] NEGATED: Highlighted row has been ruled out! (1 source) [facility] NEGATED: Highlighted row has been ruled out! (1 source) 01-28-2022 [facility] NEGATED: Highlighted row has been ruled out! (1 source) [facility] NEGATED: Highlighted row has been ruled out! (1 source) 01-28-2022 [facility] NEGATED: Highlighted row has been ruled out! (1 source) [facility] NEGATED: Highlighted row has been ruled out! (1 source) 01-28-2022 [facility] NEGATED: Highlighted row has been ruled out! (1 source) [employer] NEGATED: Highlighted row has been ruled out! (1 source) 01-28-2022 [employer] NEGATED: Highlighted row has been ruled out! (1 source) [employer] NEGATED: Highlighted row has been ruled out! (1 source) 01-28-2022 [employer] NEGATED: Highlighted row has been ruled out! (1 source) [employer] NEGATED: Highlighted row has been ruled out! (1 source) 01-28-2022 [employer] NEGATED: Highlighted row has been ruled out! (1 source) [employer] NEGATED: Highlighted row has been ruled out! (1 source) 01-28-2022 [employer] NEGATED: Highlighted row has been ruled out! (1 source) [employer] NEGATED: Highlighted row has been ruled out! (1 source) 01-28-2022 [employer] NEGATED: Highlighted row has been ruled out! (1 source) [employer] NEGATED: Highlighted row has been ruled out! (1 source) 01-28-2022 [employer] NEGATED: Highlighted row has been ruled out! (1 source) [employer] Medications Current Medications Medication Drug Class(es) Dates Sig (Normalized) Sig (Original) acetaminophen 325 mg / oxyCODONE hydrochloride 5 mg oral tablet (12 sources) Opioid Agonist Start: 11-12-2023 take 1-2 tablets by mouth every six hours as needed for pain Oxycodone-Acetami nophen (Percocet) 5-325 mg tablet Active 1 - 2 {tbl} PO EVERY 6 HOURS as needed for pain 28 November 12, 2023 Start: 10-09-2022 take 1 tablet by tasha th every six hours Oxycodone-Acetaminophen (Percocet) 5-325 mg tablet Active 1 - 2 TABLET PO EVERY 6 HOURS 28 October 09, 2022 Start: 06-21-2018 take 1 tablet by tasha th four times daily as needed Oxycodone-Acetaminophen Active 1 - 2 TABLET PO 4 TIMES DAILY NEEDED 40 5 June 21, 2018 2:43pm amoxicillin 500 mg / clavulanate 125 mg oral tablet (20 sources) Penicillin-class Antibacterial Start: 11-12-2023 Amoxicillin-Pot Clavulanate (Augmentin) 500-125 mg tablet Active 1 {tbl} PO Q12H November 12, 2023 1:00am Start: 10-09-2022 take 1 tablet by tasha th every twelve hours Amoxicillin-Pot Clavulanate (Augmentin) 500-125 mg tablet Active 1 TABLET PO Q12H October 09, 2022 12:00am Start: 01-28-2022 End: 02-07-2022 Start: 12-17-2020 End: 12-27-2020 apixaban 2.5 mg oral tablet (9 sources) Factor Xa Inhibitor Start: 11-12-2023 take 1 tablet by mouth every twelve hours Apixaban (Eliquis) 2.5 mg tablet Active 2.5 mg PO Q12H November 12, 2023 1:00am Start: 10-09-2022 take 1 tablet by tasha th twice daily Apixaban (Eliquis) 2.5 mg tablet Active 2.5 MG PO TWICE A DAY October 09, 2022 12:00am atenolol 100 mg oral tablet (20 sources) beta-Adrenergic Anabel Start: 02-26-2025 Start: 10-25-2023 Start: 06-27-2016 take 100 mg by mouth once alfredo y Atenolol Active 100 MG PO DAILY June 27, 2016 12:00am Start: 06-01-2016 ATENOLOL 50 MG TABS ATENOLOL [id number] Cristobal Ewing Start: 12-11-2009 take 2 tablets by mo uth once daily ATENOLOL 50 MG TAB Take 100 mg by mouth once daily. 0 12/11/2009 Active Comment on above: Take 100 mg by mouth once daily. 24 hr buPROPion hydrochlorid e 150 mg extended release oral tablet (20 sources) Aminoketone Start: 12-27-2024 Start: 12-07-2024 Start: 07-20-2024 Start: 09-23-2023 Start: 06-01-2016 take 1 tablet by tasha th once daily Bupropion Hcl 100 MG tablet Active 100 mg PO DAILY June 27, 2016 12:00am Start: 09-08-2012 End: 09-15-2012 Start: 05-16-2012 End: 09-08-2012 Comment on above: Take 100 mg by mouth once daily. calcium carbonate 1500 mg oral tablet (20 sources) calcium carbonate/vitamin D2 ([id number] ORAL) (9 sources) take 1 tablet by mouth once daily calcium carbonate/vitamin D2 ([id number] ORAL) Take 1 tablet by mouth once daily. Active take 1 tablet by mouth once alfredo y calcium carbonate/vitamin D2 ([id number] ORAL) Take 1 tablet by mouth once daily. 0 Active Comment on above: Take 1 tablet by tasha once daily. cefadroxil 500 mg oral capsule (3 sources) Cephalosporin Antibacterial Start: 018 take 500 mg by mouth twice daily Cefadroxil Active 500 MG PO TWICE A DAY June 20, 2018 11:00pm cholecalciferol 0.025 mg oral capsule (20 sources) Vitamin D Start: 022 take 1 capsule by mouth once daily Cholecalciferol (Vitamin D3) (Vitamin D3) 25 mcg (1,000 unit) Capsule Active 25 MCG PO DAILY October 02, 2022 12:00am take 1 tablet by mouth once alfredo y cholecalciferol 50 MCG (2000 UNIT) tablet Take 1 tablet by mouth daily. Active dapagliflozin 10 mg oral tablet (20 sources) Sodium-Glucose Cotransporter 2 Inhibitor Start: 10-02-2022 dapagliflozin propanediol (FARXIGA) 10 mg tablet Take by mouth. 10/02/2022 Active Comment on above: Take by mouth. Dulaglutide (Trulicity) 4.5 MG/0.5ML Solution Auto-injector (2 sources) Dulaglutide (Trulicity) 4.5 MG/0.5ML Solution Auto-injector Inject under the skin once a week. Active Lactobacillus Combination No.4 (Probiotic) 3 billion cell Capsule (10 sources) Start: 10-02-2022 take 3 capsules by mouth once daily Lactobacillus Combination No.4 (Probiotic) 3 billion cell Capsule Active 3000 NMA PO DAILY October 02, 2022 1:00am administer with a meal Start: 10-02-2022 take 3 capsules by m outh once daily Lactobacillus Combination No.4 (Probiotic) 3 billion cell Capsule Active 3000 MMU CELLS PO DAILY October 02, 2022 1:00am administer with a meal Start: 10-02-2022 take 3 capsules by m outh once daily Lactobacillus Combination No.4 (Probiotic) 3 billion cell Capsule Active 3000 MMU CELLS PO DAILY October 02, 2022 12:00am administer with a meal methocarbamol 500 mg oral tablet (2 sources) Muscle Relaxant Start: 09-11-2024 End: 09-18-2024 take 2 tablets by mouth three times daily as needed for muscle spasms Methocarbamol 500 MG tablet Indications: Left shoulder pain, unspecified chronicity Take 2 tablets by mouth 3 times daily as needed for Muscle spasms for up to 7 days. 42 tablet 09/11/2024 09/18/2024 Active Honobia 3-6-9 capsule (2 sources) take 3-6 capsules by mouth once daily Honobia 3-6-9 capsule Take by mouth daily. Active predniSONE 10 mg oral tablet (3 sources) Start: 03-07-2025 End: 03-16-2025 predniSONE (DELTASONE) 10 mg tablet Indications: Acute pain of left shoulder Take 4 tabs daily for 3 days, then 2 tabs daily for 3 days, then 1 tab daily for 3 days with food. 21 tablet 03/07/2025 03/16/2025 Active Start: 09-11-2024 take 1 tablet by tasha once daily predniSONE 50 MG tablet Indications: Left shoulder pain, unspecified chronicity Take 1 tablet by mouth daily. 5 tablet 09/11/2024 Active rosuvastatin calcium 40 mg o ral tablet (20 sources) HMG-CoA Reductase Inhibitor Start: 02-23-2025 Start: 10-02-2022 Comment on above: Take 40 mg by mouth once daily. Completed/Discontinued Medications Medication Drug Class(es) Dates Sig (Normalized) Sig (Original) ALPRAZolam 0.25 mg oral tablet (20 sources) Benzodiazepine Start: 01-28-2022 End: 02-18-2024 amoxicillin 500 mg oral capsule (20 sources) Penicillin-class Antibacterial Start: 01-22-2011 End: 02-01-2011 ascorbic acid 1000 mg oral tablet (20 sources) Vitamin C End: 05-10-2023 take 1 tablet by mouth once daily Ascorbic Acid (VITAMIN C) 1,000 mg TbER Take 1 tablet by mouth once daily. 0 05/10/2023 Discontinued Comment on above: Take 1 tablet by tasha th once daily. azithromycin 250 mg oral tablet (20 sources) Macrolide Antimicrobial Start: 06-28-2015 End: 07-03-2015 benzonatate 100 mg oral capsule (20 sources) Non-narcotic Antitussive Start: 06-28-2015 End: 03-20-2016 biotin 5 mg oral tablet (20 sources) BIOTIN 5,000 MCG GUMMY (2 sources) End: 05-10-2023 BIOTIN 5,000 MCG GUMMY 1 tablet once daily. 0 05/10/2023 Discontinued BIOTIN 5,000 MCG GUMMY 1 tablet once daily. 0 Active Comment on above: 1 tablet once daily. codeine phosphate 2 mg/ml / promethazine hydrochloride 1.25 mg/ml oral solution (20 sources) Opioid Agonist, Phenothiazine Start: 11-11-2017 End: 02-09-2018 doxycycline hyclate 100 mg o ral capsule (20 sources) Tetracycline-class Drug Start: 01-16-2015 End: 01-30-2015 0.5 ml dulaglutide 3 mg/ml auto-injector (20 sources) GLP-1 Receptor Agonist Start: 2021 End: 12-02-2021 Start: 06-11-2020 TRULICITY 1.5 mg/0.5 mL Inject 4.5 mg subcutaneously. 06/11/2020 Active Start: 06-11-2020 TRULICITY 1.5 mg/0.5 mL Start: 09-17-2017 Dulaglutide 1. 5 MG/0.5 ML pen injector Active 1.5 mg SC MO September 17, 2017 1:00am Start: 09-17-2017 inject 1.5 mg by sub cutaneous injection once Dulaglutide Active 1.5 MG SQ MO September 17, 2017 12:00am Comment on above: Inject 4.5 mg subcut aneously. empagliflozin 10 mg oral tab let (20 sources) Sodium-Glucose Cotransporter 2 Inhibitor Start: 06-06-2019 End: 09-06-2019 Fish Oils (20 sources) FLUoxetine 40 mg oral capsul e (20 sources) Serotonin Reuptake Inhibitor Start: 09-13-2018 End: 11-16-2018 Start: 06-27-2016 End: 11-16-2018 Start: 06-01-2016 FLUOXETINE HCL 20 MG CAPS FLUOXETINE HCL [id number] Cristobal Ewing gemfibrozil 600 mg oral tablet (20 sources) Peroxisome Proliferator Receptor alpha Agonist Start: 06-01-2016 End: 09-07-2019 ibuprofen 800 mg oral tablet (15 sources) Nonsteroidal Anti-inflammatory Drug Start: 09-22-2017 End: 06-21-2018 take 1 tablet by mouth every eight hours as needed for pain Ibuprofen 800 MG tablet Discontinued 800 mg PO EVERY 8 HOURS NEEDED as needed for Mild-Mod Pain (-03/17) September 22, 2017 5:30pm June 21, 2018 3:41pm take 1 tablet by tasha th every six hours as needed Ibuprofen (Advil) 200 MG tablet Take 1 tablet by mouth every 6 hours as needed for Mild Pain. Active INV VITAMIN D3 400 OR 4,000 UNIT (IR[facility] [id number]) CAPSULE (2 sources) End: 05-10-2023 INV VITAMIN D3 400 OR 4,000 UNIT ([facility] [id number]) CAPSULE Take 1 capsule by mouth one time only. 0 05/10/2023 Discontinued INV VITAMIN D3 4 00 OR 4,000 UNIT ([facility] [id number]) CAPSULE Take 1 capsule by mouth one time only. 0 Active Comment on above: Take 1 capsule by mo [facility] one time only. levoFLOXacin 500 mg oral tab let (20 sources) Quinolone Antimicrobial Start: 04-24-2014 End: 05-04-2014 Magnesium (20 sources) End: 05-10-2023 take 1 tablet by mouth once daily Magnesium 250 mg tab Take 250 mg by mouth once daily. 0 05/10/2023 Discontinued take 1 tablet by tasha th once daily Magnesium 250 mg tab Take 250 mg by mouth once daily. 0 Active Comment on above: Take 250 mg by mouth once daily. meloxicam 15 mg oral tablet (20 sources) Nonsteroidal Anti-inflammatory Drug Start: 05-14-2015 End: 03-20-2016 24 hr metFORMIN hydrochlorid e 750 mg extended release oral tablet (20 sources) Biguanide Start: 07-07-2021 End: 08-13-2022 Start: 11-11-2017 End: 08-18-2018 Start: 06-27-2016 take 1000 mg by mout h twice daily at mealtime Metformin Active 1000 MG PO TWICE DAILY WITH MEALS June 26, 2016 11:00pm Start: 06-01-2016 METFORMIN HCL ER (MOD) 500 MG [id number] 2 pills twice daily METFORMIN HCL [id number] Cristobal Ewing Start: 05-13-2016 End: 05-13-2016 Start: 07-04-2015 End: 09-04-2015 Start: 09-26-2014 End: 07-23-2015 Start: 06-16-2013 End: 05-10-2023 metFORMIN 500 mg tablet Take 750 mg by mouth twice daily. 0 06/16/2013 05/10/2023 Discontinued Comment on above: Take 750 mg by mouth twice daily. naproxen 500 mg delayed release oral tablet (20 sources) Nonsteroidal Anti-inflammatory Drug Start: 02-14-2016 End: 08-18-2018 NAPROXEN SODIUM (ALEVE ORAL) Take by mouth as needed. Active NAPROXEN SODIUM (ALEVE ORAL) Take by mouth as needed. 0 Active NAPROXEN SODIUM (ALEVE ORAL) Take by mouth once daily. 0 Active Comment on above: Take by mouth once d aily. Take by mouth as nee ded. omeprazole 40 mg delayed release oral capsule (20 sources) Proton Pump Inhibitor Start: 6 End: 8 take 2 capsules by mouth once daily Omeprazole 20 MG capsule Discontinued 40 mg PO DAILY August 07, 2016 12:00am April 19, 2018 1:48pm Start: 08-07-2016 End: 04-19-2018 take 40 mg by mouth once daily Omeprazole Discontinued 40 MG PO DAILY August 07, 2016 12:00am April 19, 2018 1:48pm Start: 06-16-2013 End: 07-11-2024 Start: 11-19-2011 End: 10-26-2012 Comment on above: Take 1 capsule by mo uth once daily. PEG [id number]-NASUL F (2 sources) Osmotic Laxative Start: 06-10-2017 ARYLY 227.1 GM SOLR As directed PEG 4154-[id number]-RIYPF-NACL-NA SULF [id number] Josue Bhakta MD promethazine hydrochloride 25 mg oral tablet (20 sources) Phenothiazine Start: 06-07-2013 End: 08-30-2013 raNITIdine 150 mg oral tablet (20 sources) Histamine-2 Receptor Antagonist Start: 10-26-2012 End: 08-30-2013 SITagliptin 100 mg oral tablet (20 sources) Dipeptidyl Peptidase 4 Inhibitor Start: 06-01-2016 End: 05-10-2023 triamcinolone acetonide 0.25 mg/ml topical cream (20 sources) Corticosteroid Start: 07-18-2020 End: 12-02-2021 Start: 12-13-2019 Comment on above: Apply to affected ar ea twice daily. 24 hr venlafaxine 37.5 mg extended release oral capsule (20 sources) Serotonin and Norepinephrine Reuptake Inhibitor Start: 03-30-2012 End: 04-04-2012 Start: 03-17-2012 End: 05-16-2012 Start: 03-17-2012 End: 05-16-2012 Zinc (2 sources) End: 05-10-2023 take 1 tablet by mouth once daily Zinc 50 mg tab Take 50 mg by mouth once daily. 0 05/10/2023 Discontinued take 1 tablet by mouth once alfredo y Zinc 50 mg tab Take 50 mg by mouth once daily. 0 Active Comment on above: Take 50 mg by mouth once daily. zinc gluconate 50 mg oral ta blet (20 sources) zolpidem tartrate 5 mg oral tablet (20 sources) gamma-Aminobutyric Acid-ergic Agonist Start: 12-13-2019 End: 02-18-2024 End: 05-10-2023 take 1 tablet by mouth every twenty-four hours as needed zolpidem (AMBIEN) 5 mg tablet Take 5 mg by mouth at bedtime as needed. 0 05/10/2023 Discontinued Comment on above: Take 5 mg by mouth a t bedtime as needed. Problems Active Problems Problem Classification Problem Date Documented Da te Episodic/Chronic Abdominal pain (20 sources) Abdominal pain; Translations: [Unspecified abdominal pain] 08-13-2016 Episodic Acute bronchitis (20 sources) Acute bacterial bronchitis; Translations: [Acute bronchitis due to other specified organisms] 08-13-2016 Episodic Administrative/social admission (20 sources) Issue of repeat prescriptions 11-24-2016 Episodic Anxiety disorders (20 sources) Anxiety; Translations: [Anxiety disorder, unspecified] 10-19-2023 Chronic Biliary tract disease (20 sources) Unspecified disorder of gallbladder 08-13-2016 Episodic Cardiac dysrhythmias (20 sources) Palpitations; Translations: [Palpitations] 08-13-2016 Episodic Chronic obstructive pulmonary disease and bronchiectasis (20 sources) Bronchitis; Translations: [Bronchitis, not specified as acute or chronic] 08-13-2016 Episodic Complications of surgical procedures or medical care (20 sources) Adverse reaction to drug; Translations: [Unspecified adverse effect of drug or medicament, initial encounter] 08-13-2016 Episodic Diabetes mellitus with complications (20 sources) Diabetes mellitus; Translations: [Type 2 diabetes mellitus without complications] Onset: 5 04-15-2021 Chronic Diabetes mellitus with complications (20 sources) Type II diabetes mellitus uncontrolled; Translations: [Diabetes mellitus without mention of complication, type II or unspecified type, uncontrolled] Onset: 5 11-16-2018 Chronic Diabetes mellitus without complication (20 sources) Hyperglycemia; Translations: [Hyperglycemia, unspecified] 08-13-2016 Episodic Disorders of lipid metabolism (20 sources) Hyperlipidemia; Translations: [Hyperlipidemia, unspecified] Onset: 9 06-12-2020 Chronic Diverticulosis and diverticulitis (11 sources) Diverticular disease; Translations: [Diverticulosis of intestine, part unspecified, without perforation or abscess without bleeding] Onset: 7 06-10-2017 Chronic Esophageal disorders (20 sources) Gastroesophageal reflux disease; Translations: [Gastro-esophageal reflux disease without esophagitis] Onset: 7 06-10-2017 Chronic Essential hypertension (20 sources) Benign essential hypertension; Translations: [Essential (primary) hypertension] 08-13-2016 Chronic Immunizations and screening for infectious disease (20 sources) Requires a hepatitis A vaccination; Translations: [Encounter for immunization] 10-06-2017 Episodic Intestinal infection (20 sources) Viral gastroenteritis; Translations: [Viral intestinal infection, unspecified] 08-13-2016 Episodic Menopausal disorders (1 source) Atrophic vaginitis; Translations: [Postmenopausal atrophic vaginitis] Chronic Miscellaneous mental health disorders (20 sources) Feeling of lump in throat; Translations: [Gastrointestinal malfunction arising from mental factors] 10-09-2015 Chronic Mood disorders (20 sources) Recurrent major depression in partial remission; Translations: [Major depressive disorder, recurrent, in partial remission] 10-19-2023 Chronic Noninfectious gastroenteritis (20 sources) Acute gastroenteritis; Translations: [Noninfective gastroenteritis and colitis, unspecified] 05-09-2018 Episodic Other aftercare (20 sources) Long-term (current) use of other medications 08-13-2016 Episodic Other bone disease and musculoskeletal deformities (20 sources) Osteopenia; Translations: [Other specified disorders of bone density and structure, unspecified site] 10-19-2023 Episodic Other connective tissue disease (13 sources) Dupuytren's contracture; Translations: [Palmar fascial fibromatosis [Dupuytren]] 06-26-2018 Episodic Comment on above: Dupuytren's disease bilateral palms with painful nodularity Other connective tissue disease (9 sources) Calcaneal spur; Translations: [Calcaneal spur, right foot] 10-09-2022 Episodic Other connective tissue disease (20 sources) Ganglion cyst; Translations: [Ganglion, unspecified site] 06-06-2019 Episodic Other connective tissue disease (20 sources) Lateral epicondylitis of left humerus; Translations: [Lateral epicondylitis, left elbow] 05-09-2018 Episodic Other connective tissue disease (20 sources) Chronic pain of right foot; Translations: [Pain in right foot] 05-09-2018 Episodic Other connective tissue disease (20 sources) Left achilles tendonitis; Translations: [Achilles tendinitis, left leg] 08-13-2016 Episodic Other connective tissue disease (4 sources) Plantar fascial fibromatosis; Translations: [Plantar fascial fibromatosis] 11-12-2023 Episodic Other endocrine disorders (1 source) Disorder of parathyroid gland, unspecified; Translations: [Disorder of parathyroid gland, unspecified] Onset: Chronic Other gastrointestinal disorders (20 sources) Diarrhea; Translations: [Diarrhea, unspecified] 08-13-2016 Episodic Other inflammatory condition of skin (1 source) Pruritus of genital organs; Translations: [Pruritus vulvae] Episodic Other nervous system disorders (2 sources) Carpal tunnel syndrome, left upper limb; Translations: [Carpal tunnel syndrome, left upper limb] Onset: 6 06-03-2016 Chronic Other nervous system disorders (10 sources) Carpal tunnel syndrome; Translations: [Carpal tunnel syndrome, right upper limb] 06-26-2018 Chronic Other nervous system disorders (20 sources) Bilateral carpal tunnel syndrome; Translations: [Carpal tunnel syndrome, bilateral upper limbs] 05-09-2018 Chronic Other nervous system disorders (20 sources) Meralgia paresthetica 08-13-2016 Chronic Other nervous system disorders (3 sources) Carpal tunnel syndrome of right wrist; Translations: [Carpal tunnel syndrome, right upper limb] 06-26-2018 Chronic Other nervous system disorders (20 sources) Paresthesia of hand ; Translations: [Paresthesia of skin] 06-26-2018 Episodic Other non-traumatic joint disorders (20 sources) Joint pain; Translations: [Pain in unspecified joint] 10-19-2023 Episodic Other non-traumatic joint disorders (6 sources) Pain in left shoulder; Translations: [Pain in joint, shoulder region] Onset: 4 09-11-2024 Episodic Other nutritional; endocrine; and metabolic disorders (9 sources) Metabolic syndrome X; Translations: [Metabolic syndrome] Onset: 0 12-11-2009 Chronic Other nutritional; endocrine; and metabolic disorders (20 sources) Body mass index 30+ - obesity; Translations: [Body mass index (BMI) 31.0-31.9, adult] 05-09-2018 Chronic Other nutritional; endocrine; and metabolic disorders (20 sources) Overweight in adulthood with body mass index of 25 or more but less than 30; Translations: [Body mass index (BMI) 29.0-29.9, adult] 05-09-2018 Episodic Other nutritional; endocrine; and metabolic disorders (2 sources) Body mass index 25-29 - overweight; Translations: [Body mass index (BMI) 29.0-29.9, adult] 05-09-2018 Episodic Other skin disorders (20 sources) Alopecia; Translations: [Nonscarring hair loss, unspecified] 08-13-2016 Episodic Other skin disorders (20 sources) Skin tag; Translations: [Other hypertrophic disorders of the skin] 05-09-2018 Episodic Other upper respiratory disease (20 sources) Allergic rhinitis; Translations: [Allergic rhinitis, unspecified] 12-13-2019 Chronic Other upper respiratory infections (20 sources) Sinusitis; Translations: [Chronic sinusitis, unspecified] 08-13-2016 Chronic Other upper respiratory infections (20 sources) Acute sinusitis; Translations: [Acute sinusitis, unspecified] 11-11-2017 Episodic Otitis media and related conditions (20 sources) Finding of fluid behind tympanic membrane; Translations: [Unspecified nonsuppurative otitis media, unspecified ear] 2021 Episodic Residual codes; unclassified (20 sources) Obstructive sleep apnea of adult; Translations: [Obstructive sleep apnea (adult) (pediatric)] 10-19-2023 Chronic Residual codes; unclassified (20 sources) Insomnia; Translations: [Insomnia, unspecified] 10-19-2023 Episodic Spondylosis; intervertebral disc disorders; other back problems (2 sources) Cervical radiculopathy; Translations: [Radiculopathy, cervical region] Onset: 6 06-01-2016 Chronic Sprains and strains (20 sources) Strain of muscle of lower limb; Translations: [Strain of unspecified muscle(s) and tendon(s) at lower leg level, right leg, initial encounter] 08-13-2016 Episodic Thyroid disorders (20 sources) Non-toxic multinodular goiter; Translations: [Nontoxic multinodular goiter] Onset: 9 06-12-2020 Chronic Unclassified (2 sources) Postoperative physical examination; Translations: [Encounter for other specified surgical aftercare] Onset: 6 08-24-2016 Unclassified (20 sources) 10-19-2023 Unclassified (20 sources) 10-19-2023 Unclassified (20 sources) 10-19-2023 Viral infection (20 sources) Disease caused by 2019-nCoV; Translations: [COVID-19] 10-19-2023 Episodic Past or Other Problems Problem Classification Problem Date Documented Da te Episodic/Chronic Other and unspecified benign neoplasm (11 sources) History of polyp of colon; Translations: [Personal history of colonic polyps] Onset: 06-10-2017 06-10-2017 Episodic Other bone disease and musculoskeletal deformities (1 source) Other specified disorders of bone density and structure, multiple sites; Translations: [Other specified disorders of bone density and structure, multiple sites] Onset: 08-01-2024 Episodic Other connective tissue disease (10 sources) Hand pain; Translations: [Pain in unspecified hand] Onset: 09-08-2017 09-09-2017 Episodic Other non-traumatic joint disorders (2 sources) Pain in left wrist; Translations: [Pain in left wrist] Onset: 07-27-2016 07-31-2016 Episodic Other screening for suspected conditions (not mental disorders or infectious disease) (20 sources) Patient encounter status; Translations: [Encounter for screening mammogram for malignant neoplasm of breast] Onset: 07-11-2024 Episodic Other skin disorders (11 sources) Granulomatosis; Translations: [Cyst of skin] Onset: 09-09-2017 09-09-2017 Episodic Spondylosis; intervertebral disc disorders; other back problems (20 sources) Neck pain; Translations: [Spinal stenosis in cervical region] Onset: 06-01-2016 06-01-2016 Episodic Unclassified (1 source) Patient encounter status 12-26-2024 Results Test Name Value Interpretation Reference Range Facility [facility] 03-07-2025 CNOV Office Visit (UCWSTR) LYNDSEY PANDEY ([id number]) 1965 F Date Time Provider Department 03/07/25 8:30 AM RAISSA GRIFFITH [facility] During your visit today, we recorded the following information about you: Temperature Pulse Respiration Blood pressure 97.5 degrees 82/minute 16/minute 128/78 Weight 82.2 kg Raissa Griffith APRN.POWER TRANSFORMER REPAIRER 03/07/2025 10:13 AM Signed [facility] Subjective HPI HPI Lyndsey Bullard Dannie is a 60 year old female who presents today for CC of left shoulder pain. This started few days ago. Has tried otc medication for relief. Symptoms are worsened by rom of shoulder. Risk factors hx of this in past, seen multiple providers for this. Prednisone had helped in past. Denies injury. Some numbness/tingling of left hand at times, not currently .Patient presents with: Pain (Shoulder Pain): Left PAST MEDICAL HISTORY Diagnosis Date Depression Diabetes (HCC) Hypertension Multiple thyroid nodules Osteopenia 2018 left femoral neck Sinus trouble PAST SURGICAL HISTORY Procedure Laterality Date CARPAL TUNNEL Left 2014 DELIVERY ONLY , low transverse x 2 COLONOSCOPY FLX DX W/COLLJ SPEC WHEN PFRMD 07-19-13 and 2016 due 2025 EGD TRANSORAL BIOPSY SINGLE/MULTIPLE 07-19-13 and 2016 FOOT Right 2023 bone spur removed FOOT SURGERY HX Right 2021 HAND LEFT OP SURGERY 2018 LAPAROSCOPY SURG CHOLECYSTECTOMY 06/27/2013 OOPHORECTOMY PARTIAL OR TOTAL Bilateral 2016 ALLERGIES Patient has no known allergies. MEDICATIONS predniSONE (DELTASONE) 10 mg tablet Take 4 tabs daily for 3 days, then 2 tabs daily for 3 days, then 1 tab daily for 3 days with food. dapagliflozin propanediol (FARXIGA) 10 mg tablet Take by mouth. calcium carbonate/vitamin D2 ([id number]-T ORAL) Take 1 tablet by mouth once daily. TRULICITY 1.5 mg/0.5 mL Inject 4.5 mg subcutaneously. triamcinolone (KENALOG) 0.025 % cream Apply to affected area twice daily. rosuvastatin (CRESTOR) 40 mg tablet Take 40 mg by mouth once daily. NAPROXEN SODIUM (ALEVE ORAL) Take by mouth as needed. BUPROPION HCL (WELLBUTRIN ORAL) Take 100 mg by mouth once daily. ATENOLOL 50 MG TAB Take 100 mg by mouth once daily. FAMILY HISTORY Problem Relation Age of Onset Liver Disease Mother Hypertension Mother Brain Cancer Mother Osteoporosis Father Glaucoma Father Skin Cancer Father Hypertension Father No Known Problems Brother Diabetes Maternal Grandmother Heart Maternal Grandmother Diabetes Maternal Grandfather Heart Maternal Grandfather Thyroid Paternal Grandmother Osteoporosis Paternal Grandmother Glaucoma Paternal Grandmother Thyroid Paternal Aunt Glaucoma Paternal Uncle Social History Tobacco Use Smoking status: Never Smokeless tobacco: Never Vaping Use Vaping status: Never Used Substance Use Topics Alcohol use: No Drug use: Never Review of Systems Objective BP 128/78 Pulse 82 Temp 36.4 ?C (97.5 ?F) (Tympanic) Resp 16 Wt 82.2 kg (181 lb 3.5 oz) SpO2 99% BMI 30.05 kg/m? Physical Exam Constitutional: General: She is not in acute distress. Appearance: She is not toxic-appearing or diaphoretic. HENT: Head: Normocephalic and atraumatic. Pulmonary: Effort: Pulmonary effort is normal. No accessory muscle usage or respiratory distress. Musculoskeletal: Arms: Neurological: Mental Status: She is alert and oriented to person, place, and time. {ASSESSMENT/PLAN: 1. Acute pain of left shoulder - ICD9: 719.41, ICD10: M25.512 -use medication as prescribed -follow up if symptoms persist, worsen, change - PREDNISONE 10 MG TABLET Raissa Griffith APRN.POWER TRANSFORMER REPAIRER Disposition The patient was discharged. Procedures Allergies As of Date: 03/07/2025 (No Known Allergies) Date Reviewed: 03/07/2025 Reviewed by: Melinda Arias MA - Fully Assessed Reason for Visit: Pain (Shoulder Pain) [1343] Cmt: Left Primary Visit Diagnosis:Acute pain of left shoulder [M25.512] Order(s):predniSONE (DELTASONE) 10 mg tabletTake 4 tabs daily for 3 days, then 2 tabs daily for 3 days, then 1 tab daily for 3 days with food.Disp: 21 tabletRfl: 0 Prescriptions as of 03/07/2025 - predniSONE (DELTASONE) 10 mg tablet Take 4 tabs daily for 3 days, then 2 tabs daily for 3 days, then 1 tab daily for 3 days with food. - dapagliflozin propanediol (FARXIGA) 10 mg tablet Take by mouth. - calcium carbonate/vitamin D2 ([id number]-S ORAL) Take 1 tablet by mouth once daily. - TRULICITY 1.5 mg/0.5 mL Inject 4.5 mg subcutaneously. - triamcinolone (KENALOG) 0.025 % cream Apply to affected area twice daily. - rosuvastatin (CRESTOR) 40 mg tablet Take 40 mg by mouth once daily. - NAPROXEN SODIUM (ALEVE ORAL) Take by mouth as needed. - BUPROPION HCL (WELLBUTRIN ORAL) Take 100 mg by mouth once daily. - ATENOLOL 50 MG TAB Take 100 mg by mouth once daily. Problem List As Of (more content not included)... Normal [facility] Albumin DL <= 20 mg/L (U) [M ass/Vol]Ordered By: River Dai on 02-09-2025 Urine Random Microalbumin < 12.0 mg/L NO RANGE EST. [facility] Anion gap in Serum or Plasma Ordered By: River Dai on 02-09-2025 Anion gap [Moles/Vol] 10 mmol/L 5-15 [facility] BUN/creatinine ratioOrdered By: River Dai on 02-09-2025 Urea nitrogen/Creatinine [Mass ratio] 18.9 mg/mg 10-20 [facility] Bilirubin, totalOrdered By: River Dai on 02-09-2025 Bilirubin [Mass/Vol] 0.34 mg/dL 0.00-1.30 [facility] Carbon dioxide, total [Moles /volume] in Central venous bloodOrdered By: River Dai on 02-09-2025 CO2 [Moles/Vol] 23.3 mmol/L 21.0-32.0 [facility] Chloride assayOrdered By: Bernardino Dai on 02-09-2025 Chloride [Moles/Vol] 105 mmol/L 98-108 [facility] Comprehensive Metabolic Prof ilon 02-09-2025 Albumin [Mass/Vol] 4.1 g/dL Normal 3.4-4.8 [facility] Comment on above: Performed By: #### L 500.7000, L500.4100, L509.1000, L501.9520, L501.5200, L506.1000, L500.4050, L501.9985, L502.000, L501.5280 #### [facility] [address] [place], [place], [id number] (676) Albumin/Globulin [Mass ratio] 1.7 {ratio} Normal 0.9-2.4 [facility] Comment on above: Performed By: #### L 500.7000, L500.4100, L509.1000, L501.9520, L501.5200, L506.1000, L500.4050, L501.9985, L502.000, L501.5280 #### [facility] [address] [place], [place], [id number] ALK PHOS 103 U/L Normal 35-104 [facility] Comment on above: Performed By: #### L 500.7000, L500.4100, L509.1000, L501.9520, L501.5200, L506.1000, L500.4050, L501.9985, L502.000, L501.5280 #### [facility] [address] [place], [place], [id number] (068) ALT [Catalytic activity/Vol] 36 U/L High <=34 [facility] Comment on above: Performed By: #### L 500.7000, L500.4100, L509.1000, L501.9520, L501.5200, L506.1000, L500.4050, L501.9985, L502.000, L501.5280 #### [facility] [address] [place], [place], [id number] (393) AST [Catalytic activity/Vol] 28 U/L Normal <=31 [facility] Comment on above: Performed By: #### L 500.7000, L500.4100, L509.1000, L501.9520, L501.5200, L506.1000, L500.4050, L501.9985, L502.000, L501.5280 #### [facility] [address] [place], [place], [id number] Bilirubin [Mass/Vol] 0.34 mg/dL Normal 0.00-1.30 [facility] Comment on above: Performed By: #### L 500.7000, L500.4100, L509.1000, L501.9520, L501.5200, L506.1000, L500.4050, L501.9985, L502.000, L501.5280 #### [facility] [address] [place], [place], [id number] (404) BUN/CRE 18.9 RATIO Normal 10-20 [facility] Comment on above: Performed By: #### L 500.7000, L500.4100, L509.1000, L501.9520, L501.5200, L506.1000, L500.4050, L501.9985, L502.000, L501.5280 #### [facility] [address] [place], [place], [id number] (566) Calcium [Mass/Vol] 8.9 mg/dL Normal 7.6-11.0 [facility] Comment on above: Performed By: #### L 500.7000, L500.4100, L509.1000, L501.9520, L501.5200, L506.1000, L500.4050, L501.9985, L502.000, L501.5280 #### [facility] [address], [address] Chloride [Moles/Vol] 105 mmol/L Normal 98-108 [facility] Comment on above: Performed By: #### L 500.7000, L500.4100, L509.1000, L501.9520, L501.5200, L506.1000, L500.4050, L501.9985, L502.000, L501.5280 #### [facility] [address] [place], [place], [id number] (251) CO2 [Moles/Vol] 23.3 mmol/L Normal 21.0-32.0 [facility] Comment on above: Performed By: #### L 500.7000, L500.4100, L509.1000, L501.9520, L501.5200, L506.1000, L500.4050, L501.9985, L502.000, L501.5280 #### [facility] [address] [place], [address] Creatinine [Mass/Vol] 0.82 mg/dL Normal 0.70-1.20 [facility] Comment on above: Performed By: #### L 500.7000, L500.4100, L509.1000, L501.9520, L501.5200, L506.1000, L500.4050, L501.9985, L502.000, L501.5280 #### [facility] [address] [place], [address] GAP 10 Normal 5-15 [facility] Comment on above: Performed By: #### L 500.7000, L500.4100, L509.1000, L501.9520, L501.5200, L506.1000, L500.4050, L501.9985, L502.000, L501.5280 #### [facility] [address] [place], [place], [id number] (785 GFR/1.73 sq M.predicted among non-blacks MDRD (S/P/Bld) [Vol rate/Area] 82 mL/min/{1.73_m2} Normal >60 [facility] Comment on above: Result Comment: mL/m in/1.73m2 CKD-EPI Creatinine Equation (2020) Performed By: #### L 500.7000, L500.4100, L509.1000, L501.9520, L501.5200, L506.1000, L500.4050, L501.9985, L502.000, L501.5280 #### [facility] [address] [place], [place], [id number] (156) Globulin (S) [Mass/Vol] 2.4 g/dL Normal 2.2-4.2 [facility] Comment on above: Performed By: #### L 500.7000, L500.4100, L509.1000, L501.9520, L501.5200, L506.1000, L500.4050, L501.9985, L502.000, L501.5280 #### [facility] [address] [place], [address] Glucose [Mass/Vol] 155 mg/dL High 70-99 [facility] Comment on above: Performed By: #### L 500.7000, L500.4100, L509.1000, L501.9520, L501.5200, L506.1000, L500.4050, L501.9985, L502.000, L501.5280 #### [facility] [address] [place], [place], [id number] (648) Potassium [Moles/Vol] 4.1 mmol/L Normal 3.3-5.1 [facility] Comment on above: Performed By: #### L 500.7000, L500.4100, L509.1000, L501.9520, L501.5200, L506.1000, L500.4050, L501.9985, L502.000, L501.5280 #### [facility] [address] [place], [address] (904) Sodium [Moles/Vol] 138 mmol/L Normal 133-145 [facility] Comment on above: Performed By: #### L 500.7000, L500.4100, L509.1000, L501.9520, L501.5200, L506.1000, L500.4050, L501.9985, L502.000, L501.5280 #### [facility] [address] [place], [place], [id number] (281) T PROT 6.5 g/dL Normal 5.9-8.4 [facility] Comment on above: Performed By: #### L 500.7000, L500.4100, L509.1000, L501.9520, L501.5200, L506.1000, L500.4050, L501.9985, L502.000, L501.5280 #### [facility] [address] [place], [place], [id number] (874) Urea nitrogen [Mass/Vol] 15 mg/dL Normal 4-19 [facility] Comment on above: Performed By: #### L 500.7000, L500.4100, L509.1000, L501.9520, L501.5200, L506.1000, L500.4050, L501.9985, L502.000, L501.5280 #### [facility] [address] [place], [place], [id number] Creatinine Unsp time (U) [Ma ss/Vol]Ordered By: River Dai on 02-09-2025 Creatinine (U) [Mass/Vol] 66.20 mg/dL 28.00-217.00 [facility] GFR/1.73 sq M.predicted keiko g non-blacks MDRD (S/P/Bld) [Vol rate/Area]Ordered By: River Dai on 02-09-2025 Estimated GFR (MDRD) Non-Af Amer 82 >60 [facility] Comment on above: mL/min/1.73m2 CKD-EP I Creatinine Equation (2020) Hemoglobin A1c percentageon 02-09-2025 HbA1c (Bld) [Mass fraction] 7.7 % Abnormal 4.6 - 7.1 % [facility]. Comment on above: Performed By: #### L 500.7000, L500.4100, L509.1000, L501.9520, L501.5200, L506.1000, L500.4050, L501.9985, L502.000, L501.5280 #### [facility] [address], [place], [id number] Laboratory - Chemistry and C hemistry - challengeOrdered By: River Dai on 02-09-2025 AST [Catalytic activity/Vol] 28 U/L <32 [facility] Microalb:Creat Ratio,Random URon 02-09-2025 Creatinine [Mass/Vol] 66.20 mg/dL Normal 28.00-217.00 [facility] Comment on above: Performed By: #### L 500.7000, L500.4100, L509.1000, L501.9520, L501.5200, L506.1000, L500.4050, L501.9985, L502.000, L501.5280 #### [facility] [address] [place], [place], [id number] MALB:CREAT UNABLE TO CALCULATE Normal [facility] Comment on above: Performed By: #### L 500.7000, L500.4100, L509.1000, L501.9520, L501.5200, L506.1000, L500.4050, L501.9985, L502.000, L501.5280 #### [facility] [address] [place], [place], [id number] MICROALBUMIN,UR < 12.0 Normal NO RANGE EST. [facility] Comment on above: Performed By: #### L 500.7000, L500.4100, L509.1000, L501.9520, L501.5200, L506.1000, L500.4050, L501.9985, L502.000, L501.5280 #### [facility] [address] [place], [place], [id number] Microalbumin/creat ratio urO rdered By: River Dai on 02-09-2025 Urine Microalbumin/Creatinine Ratio UNABLE TO CALCULATE mg/g CRE [facility] Potassium (Unsp spec) [Mass/ Vol]Ordered By: River Dai on 02-09-2025 Potassium [Moles/Vol] 4.1 mmol/L 3.3-5.1 [facility] Serum creatinine measurement (mass/volume)Ordered By: River Dai on 02-09-2025 Creatinine [Mass/Vol] 0.82 mg/dL 0.70-1.20 [facility] Serum globulin measurementOr dered By: River Dai on 02-09-2025 Globulin (S) [Mass/Vol] 2.4 g/dL 2.2-4.2 [facility] Serum glucose measurement (m ass/volume)Ordered By: River Dai on 02-09-2025 Glucose [Mass/Vol] 155 mg/dL High 70-99 [facility] Serum or plasma alanine rosales otransferase (ALT) measurementOrdered By: River Dai on 02-09-2025 ALT [Catalytic activity/Vol] 36 U/L High <35 [facility] Serum or plasma albumin orlin urement (mass/volume)Ordered By: River Dai on 02-09-2025 Albumin [Mass/Vol] 4.1 g/dL 3.4-4.8 [facility] Serum or plasma albumin/glob ulin mass ratioOrdered By: River Dai on 02-09-2025 Albumin/Globulin [Mass ratio] 1.7 {ratio} 0.9-2.4 [facility] Serum or plasma alkaline stacey sphatase measurementOrdered By: River Dai on 02-09-2025 ALP [Catalytic activity/Vol] 103 U/L 35-104 [facility] Serum or plasma calcium orlin urement (mass/volume)Ordered By: River Dai on 02-09-2025 Calcium [Mass/Vol] 8.9 mg/dL 7.6-11.0 [facility] Serum or plasma urea nitroge n measurement (mass/volume)Ordered By: River Dai on 02-09-2025 Urea nitrogen [Mass/Vol] 15 mg/dL 4-19 [facility] Sodium levelOrdered By: Jose Dai on 02-09-2025 Sodium [Moles/Vol] 138 mmol/L 133-145 [facility] Total proteinOrdered By: Alexander Dai on 02-09-2025 Protein [Mass/Vol] 6.5 g/dL 5.9-8.4 [facility] CNPNon 12-26-2024 SARTHAK Telephone (STANISLAW) LYNDSEY PANDEY ([id number]) 1965 F Date Time Provider Department 12/26/24 RUPALI SAGE During your visit today, we recorded the following information about you: Michelle Landry LPN 12/26/2024 3:42 PM Signed Patient called requesting an order for a screening mammmogram with gloria. Last yearly exam was 07/11/2024 Allergies As of Date: 12/26/2024 (No Known Allergies) Date Reviewed: 07/11/2024 Reviewed by: Rupali Sage APRN.POWER TRANSFORMER REPAIRER - Fully Assessed Primary Visit Diagnosis:Encounter for screening mammogram for malignant neoplasm of breast [Z12.31] Order(s):[facility] SCREENING W GLORIA [[id number]] Order #: [id number] FUTURE Prescriptions as of 12/26/2024 - dapagliflozin propanediol (FARXIGA) 10 mg tablet Take by mouth. - calcium carbonate/vitamin D2 ([id number]-[id number] ORAL) Take 1 tablet by mouth once daily. - TRULICITY 1.5 mg/0.5 mL Inject 4.5 mg subcutaneously. - triamcinolone (KENALOG) 0.025 % cream Apply to affected area twice daily. - rosuvastatin (CRESTOR) 40 mg tablet Take 40 mg by mouth once daily. - NAPROXEN SODIUM (ALEVE ORAL) Take by mouth as needed. - BUPROPION HCL (WELLBUTRIN ORAL) Take 100 mg by mouth once daily. - ATENOLOL 50 MG TAB Take 100 mg by mouth once daily. Problem List As Of Date 12/26/2024 Noted Resolved Dysmetabolic Syndrome X [E88.810] 12/11/2009 Gastroesophageal reflux disease [K21.9] 06/10/2017 Cervical radiculopathy [M54.12] 06/01/2016 Spinal stenosis in cervical region [M48.02] 06/01/2016 Pain of hand [M79.643] 09/08/2017 Hyperlipidemia [E78.5] 03/11/2019 Diverticular disease [K57.90] 06/10/2017 Nontoxic multinodular goiter [E04.2] 01/31/2019 Granulomatosis [L92.9] 09/09/2017 History of colonic polyps [Z86.0100] 06/10/2017 Encounter Status:Closed by RUPALI SAGE on 12/26/[address] [facility] 44-YR-Hmbwges DOrdered By: Deirdre Dai on 10-31-2024 Vitamin D 25-Hydroxy 34.5 ng/mL [facility] Comment on above: Vitamin D 25(OH) Sta tus Range Deficiency <20 ng/mL (50nmol/L) Insufficiency 20 - 30 ng/mL (50 - 75 nmol/L) Sufficiency 30 - 100 ng/mL (75 - 250 nmol/L) Toxicity >100 ng/mL (>250 nmol/L) Albumin to globulin ratioOrd ered By: River Dai on 10-31-2024 Albumin/Globulin [Mass ratio] 1.2 {ratio} 0.9-2.4 [facility] Bilirubin, totalOrdered By: River Dai on 10-31-2024 Bilirubin [Mass/Vol] 0.60 mg/dL 0.20-1.00 [facility] Comment on above: For patients on eltr ombopag therapy, use of Dimension [place] TBIL is not recommended. Blood urea nitrogen (BUN)/cr eatinine ratioOrdered By: River Dai on 10-31-2024 Urea nitrogen/Creatinine [Mass ratio] 15.6 mg/mg 10-20 [facility] Carbon dioxide measurementOr dered By: River Dai on 10-31-2024 CO2 [Moles/Vol] 31.0 mmol/L 21.0-32.0 [facility] Chloride measurementOrdered By: River Dai on 10-31-2024 Chloride [Moles/Vol] 107 mmol/L 98-107 [facility] Comprehensive Metabolic Prof ilon 10-31-2024 Albumin [Mass/Vol] 3.7 g/dL Normal 3.2-5.0 [facility] Comment on above: Performed By: #### L 500.7000, L500.4100, L509.1000, L501.9520, L501.5200, L506.1000, L500.4050, L501.9985, L502.000, L501.5280 #### [facility] [address] [place], [address] Albumin/Globulin [Mass ratio] 1.2 {ratio} Normal 0.9-2.4 [facility] Comment on above: Performed By: #### L 500.7000, L500.4100, L509.1000, L501.9520, L501.5200, L506.1000, L500.4050, L501.9985, L502.000, L501.5280 #### [facility] [address] [place], [place], [id number] ALK P 104 U/L Normal 45-117 [facility] Comment on above: Performed By: #### L 500.7000, L500.4100, L509.1000, L501.9520, L501.5200, L506.1000, L500.4050, L501.9985, L502.000, L501.5280 #### [facility] [address] [place], [place], [id number] ALT [Catalytic activity/Vol] 34 U/L Normal 13-56 [facility] Comment on above: Performed By: #### L 500.7000, L500.4100, L509.1000, L501.9520, L501.5200, L506.1000, L500.4050, L501.9985, L502.000, L501.5280 #### [facility] [address] [place], [place], [id number] AST [Catalytic activity/Vol] 24 U/L Normal 15-37 [facility] Comment on above: Performed By: #### L 500.7000, L500.4100, L509.1000, L501.9520, L501.5200, L506.1000, L500.4050, L501.9985, L502.000, L501.5280 #### [facility] [address] [place], [place], [id number] Bilirubin [Mass/Vol] 0.60 mg/dL Normal 0.20-1.00 [facility] Comment on above: Result Comment: For patients on eltrombopag therapy, use of Dimension [place] TBIL is not recommended. Performed By: #### L 500.7000, L500.4100, L509.1000, L501.9520, L501.5200, L506.1000, L500.4050, L501.9985, L502.000, L501.5280 #### [facility] [address] [place], [address] BUN/CRE 15.6 RATIO Normal 10-20 [facility] Comment on above: Performed By: #### L 500.7000, L500.4100, L509.1000, L501.9520, L501.5200, L506.1000, L500.4050, L501.9985, L502.000, L501.5280 #### [facility] [address] [place], [address] CA,Total 8.7 mg/dL Normal 8.5-10.1 [facility] Comment on above: Performed By: #### L 500.7000, L500.4100, L509.1000, L501.9520, L501.5200, L506.1000, L500.4050, L501.9985, L502.000, L501.5280 #### [facility] [address] [place], [address] Chloride [Moles/Vol] 107 mmol/L Normal 98-107 [facility] Comment on above: Performed By: #### L 500.7000, L500.4100, L509.1000, L501.9520, L501.5200, L506.1000, L500.4050, L501.9985, L502.000, L501.5280 #### [facility] [address] [place], [address] CO2 [Moles/Vol] 31.0 mmol/L Normal 21.0-32.0 [facility] Comment on above: Performed By: #### L 500.7000, L500.4100, L509.1000, L501.9520, L501.5200, L506.1000, L500.4050, L501.9985, L502.000, L501.5280 #### [facility] [address] [place], [address] Creatinine [Mass/Vol] 0.83 mg/dL Normal 0.55-1.02 [facility] Comment on above: Result Comment: The validity of the calculated GFR GFRAA in patients over 70 years has not been determined. Clinical correlation is essential. Performed By: #### L 500.7000, L500.4100, L509.1000, L501.9520, L501.5200, L506.1000, L500.4050, L501.9985, L502.000, L501.5280 #### [facility] [address] [place], [place], [id number] EST GFR - AA 90 mL/min Normal >60 [facility] Comment on above: Result Comment: Afri can Bahamian GFR Calc Performed By: #### L 500.7000, L500.4100, L509.1000, L501.9520, L501.5200, L506.1000, L500.4050, L501.9985, L502.000, L501.5280 #### [facility] [address] [place], [place], [id number] GAP 1 Low 5-15 [facility] Comment on above: Performed By: #### L 500.7000, L500.4100, L509.1000, L501.9520, L501.5200, L506.1000, L500.4050, L501.9985, L502.000, L501.5280 #### [facility] [address] [place], [address] GFR/1.73 sq M.predicted among non-blacks MDRD (S/P/Bld) [Vol rate/Area] 74 mL/min/{1.73_m2} Normal >60 [facility] Comment on above: Result Comment: Non- GFR Calc Performed By: #### L 500.7000, L500.4100, L509.1000, L501.9520, L501.5200, L506.1000, L500.4050, L501.9985, L502.000, L501.5280 #### [facility] [address] [place], [address] Globulin (S) [Mass/Vol] 3.2 g/dL Normal 2.2-4.2 [facility] Comment on above: Performed By: #### L 500.7000, L500.4100, L509.1000, L501.9520, L501.5200, L506.1000, L500.4050, L501.9985, L502.000, L501.5280 #### [facility] [address] [place], [address] Glucose [Mass/Vol] 181 mg/dL High 74-106 [facility] Comment on above: Result Comment: Fast ing Glucose result greater than or equal to 126 mg/dL suggests DIABETES MELLITUS per A.D.A. criteria. Performed By: #### L 500.7000, L500.4100, L509.1000, L501.9520, L501.5200, L506.1000, L500.4050, L501.9985, L502.000, L501.5280 #### [facility] [address] [place], [address] Potassium [Moles/Vol] 4.0 mmol/L Normal 3.5-5.1 [facility] Comment on above: Performed By: #### L 500.7000, L500.4100, L509.1000, L501.9520, L501.5200, L506.1000, L500.4050, L501.9985, L502.000, L501.5280 #### [facility] [address] [place], [address] Sodium [Moles/Vol] 139 mmol/L Normal 136-145 [facility] Comment on above: Performed By: #### L 500.7000, L500.4100, L509.1000, L501.9520, L501.5200, L506.1000, L500.4050, L501.9985, L502.000, L501.5280 #### [facility] [address] [facility] [place], [place], [id number] (569) T PROT 6.9 g/dL Normal 6.4-8.2 [facility] Comment on above: Performed By: #### L 500.7000, L500.4100, L509.1000, L501.9520, L501.5200, L506.1000, L500.4050, L501.9985, L502.000, L501.5280 #### [facility] [address] [place], [place], [id number] Urea nitrogen [Mass/Vol] 13 mg/dL Normal 7-18 [facility] Comment on above: Performed By: #### L 500.7000, L500.4100, L509.1000, L501.9520, L501.5200, L506.1000, L500.4050, L501.9985, L502.000, L501.5280 #### [facility] [address] [facility] [place], [place], [id number] Estimated glomerular filtrat ion rate (GFR) AmericanOrdered By: River Dai on 10-31-2024 Estimated GFR (MDRD) Amer 90 mL/min >60 [facility] Comment on above: GFR Calc Glomerular filtration rate ( GFR) estimationOrdered By: River Dai on 10-31-2024 Estimated GFR (MDRD) Non-Af Amer 74 mL/min >60 [facility] Comment on above: Non- GFR Calc Glucose measurementOrdered B y: River Dai on 10-31-2024 Glucose [Mass/Vol] 181 mg/dL High 74-106 [facility] Comment on above: Fasting Glucose resu lt greater than or equal to 126 mg/dL suggests DIABETES MELLITUS per A.D.A. criteria. Hemoglobin A1con 12-24-2024 HbA1c (Bld) [Mass fraction] 7.2 % High 3.8-5.6 [facility] Comment on above: Result Comment: Norm al < 5.7 % Prediabetic 5.7 - 6.4 % Diabetic >or= 6.5 % Please note range changes. Performed By: #### L 500.7000, L500.4100, L509.1000, L501.9520, L501.5200, L506.1000, L500.4050, L501.9985, L502.000, L501.5280 #### [facility] [address] [facility] [place], [place], [id number] Hemoglobin A1c percentageOrd ered By: River Dai on 10-31-2024 HbA1c (Bld) [Mass fraction] 7.2 % High 3.8-5.6 [facility] Comment on above: Normal < 5.7 % Predi abetic 5.7 - 6.4 % Diabetic >or= 6.5 % Please note range changes. Intact parathyroid hormone ( iPTH) measurementOrdered By: River Dai on 10-31-2024 Parathyroid Hormone (Intact) 65.9 pg/mL 18.4-80.1 [facility] - Chemistry and C hemistry - challengeOrdered By: River Dai on 10-31-2024 AST [Catalytic activity/Vol] 24 U/L 15-37 [facility] PTHINon 10-31-2024 PTH 65.9 pg/mL Normal 18.4-80.1 [facility] Comment on above: Performed By: #### L 500.7000, L500.4100, L509.1000, L501.9520, L501.5200, L506.1000, L500.4050, L501.9985, L502.000, L501.5280 #### [facility] [address] [place], [place], [id number] Potassium measurementOrdered By: River Dai on 10-31-2024 Potassium [Moles/Vol] 4.0 mmol/L 3.5-5.1 [facility] Serum anion gap measurementO rdered By: River Dai on 10-31-2024 Anion gap [Moles/Vol] 1 mmol/L Low 5-15 [facility] Serum globulin measurementOr dered By: River Dai on 10-31-2024 Globulin (S) [Mass/Vol] 3.2 g/dL 2.2-4.2 [facility] Serum or plasma alanine rosales otransferase (ALT) measurementOrdered By: River Dai on 10-31-2024 ALT [Catalytic activity/Vol] 34 U/L 13-56 [facility] Serum or plasma albumin orlin urement (mass/volume)Ordered By: River Dai on 10-31-2024 Albumin [Mass/Vol] 3.7 g/dL 3.2-5.0 [facility] Serum or plasma alkaline stacey sphatase measurementOrdered By: River Dai on 10-31-2024 ALP [Catalytic activity/Vol] 104 U/L 45-117 [facility] Serum or plasma calcium orlin urement (mass/volume)Ordered By: River Dai on 10-31-2024 Calcium [Mass/Vol] 8.7 mg/dL 8.5-10.1 [facility] Serum or plasma creatinine m easurement (mass/volume)Ordered By: River Dai on 10-31-2024 Creatinine [Mass/Vol] 0.83 mg/dL 0.55-1.02 [facility] Comment on above: The validity of the calculated GFR & GFRAA in patients over 70 years has not been determined. Clinical correlation is essential. Serum or plasma urea nitroge n measurement (mass/volume)Ordered By: River Dai on 10-31-2024 Urea nitrogen [Mass/Vol] 13 mg/dL 7-18 [facility] Sodium levelOrdered By: Jose Dai on 10-31-2024 Sodium [Moles/Vol] 139 mmol/L 136-145 [facility] Total proteinOrdered By: Alexander Dai on 10-31-2024 Protein [Mass/Vol] 6.9 g/dL 6.4-8.2 [facility] Vitamin D,25 Hydroxyon 10-31 Vitamin D 25-OH 34.5 ng/mL Normal [facility] Comment on above: Result Comment: Keshia min D 25(OH) Status Range Deficiency <20 ng/mL (50nmol/L) Insufficiency 20 - 30 ng/mL (50 - 75 nmol/L) Sufficiency 30 - 100 ng/mL (75 - 250 nmol/L) Toxicity >100 ng/mL (>250 nmol/L) Performed By: #### L 500.7000, L500.4100, L509.1000, L501.9520, L501.5200, L506.1000, L500.4050, L501.9985, L502.000, L501.5280 #### [facility] [address] [place], [address] XR SHOULDER LEFT 2+ VIEWSon 09-11-2024 XR SHOULDER LEFT 2+ VIEWS EXAM: XR SHOULDER LEFT 4 VIEWS, 09/11/2024 12:02 PM CLINICAL INDICATIONS: left shoulder pain RELEVANT CLINICAL HISTORY: M25.512:Left shoulder pain, unspecified chronicity [facility], [facility] IR, Axillary, Scap Y; COMPARISON: No prior studies available for comparison. FINDINGS: 4 images obtained. Soft Tissue: No soft tissue swelling evident. Small foci of calcification near the posterior greater tuberosity of the humerus are seen. Bone: No acute osseous abnormality is identified. Sclerosis and mild osseous hypertrophy is present at greater tuberosity of the humerus. Osseous hypertrophic changes at the glenoid rim are also present. Joint: Acromioclavicular and glenohumeral joints are anatomically aligned. 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 Joint space loss and pronounced osteophytosis. IMPRESSION: Evidence of infraspinatus calcific tendinopathy. Findings suggestive of chronic labral pathology. 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 Normal [facility] XR Shoulder - left 2 Viewson 09-11-2024 IMPRESSION: Evidence of infraspinatus calcific tendinopathy. Findings suggestive of chronic labral pathology. 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 OLOGY EXAM: XR SHOULDER LEFT 4 VIEWS, 09/11/2024 12:02 PM CLINICAL INDICATIONS: left shoulder pain RELEVANT CLINICAL HISTORY: M25.512:Left shoulder pain, unspecified chronicity [facility], [facility] IR, Axillary, Scap Y; COMPARISON: No prior studies available for comparison. FINDINGS: 4 images obtained. Soft Tissue: No soft tissue swelling evident. Small foci of calcification near the posterior greater tuberosity of the humerus are seen. Bone: No acute osseous abnormality is identified. Sclerosis and mild osseous hypertrophy is present at greater tuberosity of the humerus. Osseous hypertrophic changes at the glenoid rim are also present. Joint: Acromioclavicular and glenohumeral joints are anatomically aligned. 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 Joint space loss and pronounced osteophytosis. RADIOLOGY Alba Dutta MD - 09/11/2024 EXAM: XR SHOULDER LEFT 4 VIEWS, 09/11/2024 12:02 PM CLINICAL INDICATIONS: left shoulder pain RELEVANT CLINICAL HISTORY: M25.512:Left shoulder pain, unspecified chronicity [facility], [facility] IR, Axillary, Scap Y; COMPARISON: No prior studies available for comparison. FINDINGS: 4 images obtained. Soft Tissue: No soft tissue swelling evident. Small foci of calcification near the posterior greater tuberosity of the humerus are seen. Bone: No acute osseous abnormality is identified. Sclerosis and mild osseous hypertrophy is present at greater tuberosity of the humerus. Osseous hypertrophic changes at the glenoid rim are also present. Joint: Acromioclavicular and glenohumeral joints are anatomically aligned. 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 Joint space loss and pronounced osteophytosis. IMPRESSION IMPRESSION: Evidence of infraspinatus calcific tendinopathy. Findings suggestive of chronic labral pathology. 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 [facility] Radiology Study observation (narrative) [facility] XR Shoulder - left 2 ViewsOr dered By: Alba Dutta on 09-11-2024 [facility] Work Phone: Basic Metabolic Profile (BMP )on 08-04-2024 BUN/CRE 17.3 RATIO Normal 10-20 [facility] Comment on above: Performed By: #### L 500.7000, L500.4100, L509.1000, L501.9520, L501.5200, L506.1000, L500.4050, L501.9985, L502.000, L501.5280 #### [facility] [address] [place], [address] CA,Total 9.2 mg/dL Normal 8.5-10.1 [facility] Comment on above: Performed By: #### L 500.7000, L500.4100, L509.1000, L501.9520, L501.5200, L506.1000, L500.4050, L501.9985, L502.000, L501.5280 #### [facility] [address] [place], [address] Chloride [Moles/Vol] 105 mmol/L Normal 98-107 [facility] Comment on above: Performed By: #### L 500.7000, L500.4100, L509.1000, L501.9520, L501.5200, L506.1000, L500.4050, L501.9985, L502.000, L501.5280 #### [facility] [address] [place], [address] CO2 [Moles/Vol] 29.0 mmol/L Normal 21.0-32.0 [facility] Comment on above: Performed By: #### L 500.7000, L500.4100, L509.1000, L501.9520, L501.5200, L506.1000, L500.4050, L501.9985, L502.000, L501.5280 #### [facility] [address] [place], [address] Creatinine [Mass/Vol] 0.75 mg/dL Normal 0.55-1.02 [facility] Comment on above: Result Comment: The validity of the calculated GFR GFRAA in patients over 70 years has not been determined. Clinical correlation is essential. Performed By: #### L 500.7000, L500.4100, L509.1000, L501.9520, L501.5200, L506.1000, L500.4050, L501.9985, L502.000, L501.5280 #### [facility] [address] [place], [place], [id number] EST GFR - AA 102 mL/min Normal >60 [facility] Comment on above: Result Comment: Afri can Bahamian GFR Calc Performed By: #### L 500.7000, L500.4100, L509.1000, L501.9520, L501.5200, L506.1000, L500.4050, L501.9985, L502.000, L501.5280 #### [facility] [address] [place], [place], [id number] GAP 4 Low 5-15 [facility] Comment on above: Performed By: #### L 500.7000, L500.4100, L509.1000, L501.9520, L501.5200, L506.1000, L500.4050, L501.9985, L502.000, L501.5280 #### [facility] [address] [place], [address] GFR/1.73 sq M.predicted among non-blacks MDRD (S/P/Bld) [Vol rate/Area] 84 mL/min/{1.73_m2} Normal >60 [facility] Comment on above: Result Comment: Non- GFR Calc Performed By: #### L 500.7000, L500.4100, L509.1000, L501.9520, L501.5200, L506.1000, L500.4050, L501.9985, L502.000, L501.5280 #### [facility] [address] [place], [address] Glucose [Mass/Vol] 142 mg/dL High 74-106 [facility] Comment on above: Result Comment: Fast ing Glucose result greater than or equal to 126 mg/dL suggests DIABETES MELLITUS per A.D.A. criteria. Performed By: #### L 500.7000, L500.4100, L509.1000, L501.9520, L501.5200, L506.1000, L500.4050, L501.9985, L502.000, L501.5280 #### [facility] [address] [place], [address] Potassium [Moles/Vol] 3.7 mmol/L Normal 3.5-5.1 [facility] Comment on above: Performed By: #### L 500.7000, L500.4100, L509.1000, L501.9520, L501.5200, L506.1000, L500.4050, L501.9985, L502.000, L501.5280 #### [facility] [address] [place], [address] Sodium [Moles/Vol] 138 mmol/L Normal 136-145 [facility] Comment on above: Performed By: #### L 500.7000, L500.4100, L509.1000, L501.9520, L501.5200, L506.1000, L500.4050, L501.9985, L502.000, L501.5280 #### [facility] [address] [place], [address] Urea nitrogen [Mass/Vol] 13 mg/dL Normal 7-18 [facility] Comment on above: Performed By: #### L 500.7000, L500.4100, L509.1000, L501.9520, L501.5200, L506.1000, L500.4050, L501.9985, L502.000, L501.5280 #### [facility] [address] [place], [address] PTHINon 08-04-2024 PTH 62.6 pg/mL Normal 18.4-80.1 [facility] Comment on above: Performed By: #### L 500.7000, L500.4100, L509.1000, L501.9520, L501.5200, L506.1000, L500.4050, L501.9985, L502.000, L501.5280 #### [facility] [address] [place], [address] 24 HR Urine Creatinineon UR COLLECT TIME 24.0 HOURS Normal 24.0 [facility] Comment on above: Performed By: #### L 500.7000, L500.4100, L509.1000, L501.9520, L501.5200, L506.1000, L500.4050, L501.9985, L502.000, L501.5280 #### [facility] [address] [place], [place], [id number] UR TOTAL VOLUME 2.10 Normal [facility] Comment on above: Performed By: #### L 500.7000, L500.4100, L509.1000, L501.9520, L501.5200, L506.1000, L500.4050, L501.9985, L502.000, L501.5280 #### [facility] [address] [place], [address] UR.CREAT/24hr 1.31 g/24 HR Normal 0.70-1.90 [facility] Comment on above: Performed By: #### L 500.7000, L500.4100, L509.1000, L501.9520, L501.5200, L506.1000, L500.4050, L501.9985, L502.000, L501.5280 #### [facility] [address] [place], [place], [id number] URINE CREAT 62.30 mg/dL Normal NO RANGE EST. [facility] Comment on above: Performed By: #### L 500.7000, L500.4100, L509.1000, L501.9520, L501.5200, L506.1000, L500.4050, L501.9985, L502.000, L501.5280 #### [facility] [address] [place], [place], [id number] [facility] HNO ID: [id number] Author: COORDINATOR, MAMMOGRAPHY, ? Service: ? Author Type: Physician Type: Letter Filed: 07/11/2024 09:46 Note Text: July 11, 2024 PID: [id number] Lyndsey Pandey [id number] [place] [address] Dear Ms. Pandey, We are pleased to inform you that the results of your recent breast imaging exam on 07/11/2024 are normal. Breast tissue can be either dense or not dense. Dense tissue makes it harder to find breast cancer on a mammogram and also raises the risk of developing breast cancer. Your breast tissue is not dense. Talk to your healthcare provider about breast density, risks for breast cancer, and your individual situation. Early detection of cancer is very important. We also understand recommendations regarding breast cancer screening are controversial. Please discuss with your primary care provider which strategy is best for you and whether a mammogram is right for you. Your imaging studies and report will be kept on file at [facility] as part of your permanent medical record and are available for your continuing care. Thank you for allowing us to help in meeting your health care needs. Sincerely, Dr. 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 Postmenopausal: Yes since age 45 HRT use: No. Last Pap: 05/10/2023 normal HPV: 05/10/2023 negative History of abnormal pap: No Last mammogram: today, pending History of abnormal mammogram: No Sexually active: No History of STDS: None Time with current partner: long-term History of ovarian cyst: Yes, had oophorectomy BSO 2015 Vaginal dryness - Yes, better when remembers to use [employer] Documentation from previous visit of 05/10/2023 was copied and pasted, documentation has been reviewed and edited as necessary for today's visit. 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 History Comments: Sexual Activity: Not Currently; Male Contraception: No contraception data on record PAST MEDICAL HISTORY No date: Depression No date: Diabetes (HCC) No date: Hypertension No date: Multiple thyroid nodules 2018: Osteopenia Comment: left femoral neck No date: Sinus troublePAST SURGICAL HISTORY 2015: CARPAL TUNNEL; Left No date: DELIVERY ONLY Comment: , low transverse x 2 07-19-13 and 2016: COLONOSCOPY FLX DX W/COLLJ SPEC WHEN PFRMD Comment: due 202507-19-13 and 2016: EGD TRANSORAL BIOPSY SINGLE/MULTIPLE 2023: FOOT; Right No date: FOOT SURGERY HX; Right Comment: 2021 2018: HAND LEFT OP SURGERY 06/27/2013: LAPAROSCOPY SURG CHOLECYSTECTOMY 2016: OOPHORECTOMY PARTIAL OR TOTAL; Bilateral FAMILY HISTORY Problem Relation Age of Onset [...] Never Smokeless tobacco: Never Vaping Use Vaping status: Never Used Substance Use Topics Alcohol use: No Drug use: Never REVIEW OF SYSTEMS Abdomen: No abdominal pain, nausea, vomiting, diarrhea, or constipation. No bloating, early satiety, indigestion, or increased flatulence. Bladder: No dysuria, gross hematuria, urinary frequency, urinary urgency, or incontinence Breast: No breast lumps, nipple d/c, overlying skin changes, redness or skin retraction Allergies and current medication updated:Yes EXAM: BP 122/76 Resp 16 Ht 5' 5.118 (1.65m) Wt 176 lb 3.2 oz (79.9kg) BMI 29.22 kg/(m2). GENERAL: pleasant, female in no apparent distress HEENT: Normocephalic, atraumatic, mucus membranes moist, and no lesions NECK: Supple, full range of motion, no adenopathy, and thyroid with known nodules that are monitored DERMATOLOGY: Normal, without lesions, non-icteric, and non-hirsute BREAST: soft, non-tender, symmetric, no dominant mass, normal nipple-areolar complex, no lymphadenopathy, and no nipple discharge CHEST: Normal inspiratory effort ABDOMEN: soft, non-tender, and no masses PELVIC: external genitalia normal, normal Bartholin's glands, urethra, Longstreet's glands, no vulvar lesions, no cervical lesions, physiologic discharge present, normal appearing perineal body and perianal region BIMANUAL: uterus normal size, shape and consistency, no adnexal masses, and non-tender RECTOVAGINAL: deferred. NEURO: alert and oriented x3,exam grossly non-focal EXTREMITIES: normal ASSESSMENT/PLAN: 1) Health maintenance: Pap/HPV up to date. Mammogram ordered Mammogram up to date Nutrition, exercise and routine health maintenance exams reviewed. Calcium/Vitamin D supplementation information provided. Colon cancer screening: up to date with screening due 2026 BMD: followed by endocrinology 04/2024 osteopenia left femoral neck -2.2 2) Follow up one year or sooner as needed Rupali Sage APRN.POWER TRANSFORMER REPAIRER Allergies As of Date: 07/11/2024 (No Known Allergies) Date Reviewed: 07/11/2024 Reviewed by: Rupali Sage APRN.POWER TRANSFORMER REPAIRER - Fully Assessed Reason for Visit: Well Woman [1463] Primary Visit Diagnosis:Encounter for gynecological examination (general) (routine) without abnormal findings [Z01.419] Other Visit Diagnosis:Encounter for screening mammogram for (more content not included)... Normal [facility] Calcium, Urine 24HRon 2023 24HR UR Calcium 176.4 mg/24 HR Normal 42.0-353.0 [facility] Comment on above: Performed By: #### L 500.7000, L500.4100, L509.1000, L501.9520, L501.5200, L506.1000, L500.4050, L501.9985, L502.000, L501.5280 #### [facility] [address] [place], [place], [phone] (104) Calcium UR pH 1 Normal [facility] Comment on above: Performed By: #### L 500.7000, L500.4100, L509.1000, L501.9520, L501.5200, L506.1000, L500.4050, L501.9985, L502.000, L501.5280 #### [facility] [address] [place], [place], [phone] UR Collect Time 24.0 HR Normal 24.0-24.0 [facility] Comment on above: Performed By: #### L 500.7000, L500.4100, L509.1000, L501.9520, L501.5200, L506.1000, L500.4050, L501.9985, L502.000, L501.5280 #### [facility] [address] [place], [place], [phone] (311) UR Total Volume 2100 ml Normal [facility] Comment on above: Performed By: #### L 500.7000, L500.4100, L509.1000, L501.9520, L501.5200, L506.1000, L500.4050, L501.9985, L502.000, L501.5280 #### [facility] [address] [place], [address] Urine Calcium 8.4 mg/dL Normal Not Estab. [facility] Comment on above: Performed By: #### L 500.7000, L500.4100, L509.1000, L501.9520, L501.5200, L506.1000, L500.4050, L501.9985, L502.000, L501.5280 #### [facility] [address] [place], [address] Comprehensive Metabolic Prof ilon 07-11-2024 Albumin [Mass/Vol] 3.6 g/dL Normal 3.2-5.0 [facility] Comment on above: Order Comment: 24HR NA URINE LIPID Performed By: #### L 500.7000, L500.4100, L509.1000, L501.9520, L501.5200, L506.1000, L500.4050, L501.9985, L502.000, L501.5280 #### [facility] [address] [place], [address] Albumin/Globulin [Mass ratio] 1.1 {ratio} Normal 0.9-2.4 [facility] Comment on above: Order Comment: 24HR NA URINE LIPID Performed By: #### L 500.7000, L500.4100, L509.1000, L501.9520, L501.5200, L506.1000, L500.4050, L501.9985, L502.000, L501.5280 #### [facility] [address] [place], [address] ALK P 111 U/L Normal 45-117 [facility] Comment on above: Order Comment: 24HR NA URINE LIPID Performed By: #### L 500.7000, L500.4100, L509.1000, L501.9520, L501.5200, L506.1000, L500.4050, L501.9985, L502.000, L501.5280 #### [facility] [address] [place], [address] ALT [Catalytic activity/Vol] 40 U/L Normal 13-56 [facility] Comment on above: Order Comment: 24HR NA URINE LIPID Performed By: #### L 500.7000, L500.4100, L509.1000, L501.9520, L501.5200, L506.1000, L500.4050, L501.9985, L502.000, L501.5280 #### [facility] [address] [facility] [place], [place], [phone] (688) AST [Catalytic activity/Vol] 26 U/L Normal 15-37 [facility] Comment on above: Order Comment: 24HR NA URINE LIPID Performed By: #### L 500.7000, L500.4100, L509.1000, L501.9520, L501.5200, L506.1000, L500.4050, L501.9985, L502.000, L501.5280 #### [facility] [address] [facility] [place], [place], [phone] Bilirubin [Mass/Vol] 0.60 mg/dL Normal 0.20-1.00 [facility] Comment on above: Order Comment: 24HR NA URINE LIPID Result Comment: For patients on eltrombopag therapy, use of Dimension [place] TBIL is not recommended. Performed By: #### L 500.7000, L500.4100, L509.1000, L501.9520, L501.5200, L506.1000, L500.4050, L501.9985, L502.000, L501.5280 #### [facility] [address] [place], [address] BUN/CRE 14.6 RATIO Normal 10-20 [facility] Comment on above: Order Comment: 24HR NA URINE LIPID Performed By: #### L 500.7000, L500.4100, L509.1000, L501.9520, L501.5200, L506.1000, L500.4050, L501.9985, L502.000, L501.5280 #### [facility] [address] [place], [address] CA,Total 8.9 mg/dL Normal 8.5-10.1 [facility] Comment on above: Order Comment: 24HR NA URINE LIPID Performed By: #### L 500.7000, L500.4100, L509.1000, L501.9520, L501.5200, L506.1000, L500.4050, L501.9985, L502.000, L501.5280 #### [facility] [address] [place], [address] Chloride [Moles/Vol] 108 mmol/L High 98-107 [facility] Comment on above: Order Comment: 24HR NA URINE LIPID Performed By: #### L 500.7000, L500.4100, L509.1000, L501.9520, L501.5200, L506.1000, L500.4050, L501.9985, L502.000, L501.5280 #### [facility] [address] [place], [address] CO2 [Moles/Vol] 27.0 mmol/L Normal 21.0-32.0 [facility] Comment on above: Order Comment: 24HR NA URINE LIPID Performed By: #### L 500.7000, L500.4100, L509.1000, L501.9520, L501.5200, L506.1000, L500.4050, L501.9985, L502.000, L501.5280 #### [facility] [address] [place], [address] Creatinine [Mass/Vol] 0.82 mg/dL Normal 0.55-1.02 [facility] Comment on above: Order Comment: 24HR NA URINE LIPID Result Comment: The validity of the calculated GFR GFRAA in patients over 70 years has not been determined. Clinical correlation is essential. Performed By: #### L 500.7000, L500.4100, L509.1000, L501.9520, L501.5200, L506.1000, L500.4050, L501.9985, L502.000, L501.5280 #### [facility] [address] [place], [place], [id number] EST GFR - AA 92 mL/min Normal >60 [facility] Comment on above: Order Comment: 24HR NA URINE LIPID Result Comment: Afri can Bahamian GFR Calc Performed By: #### L 500.7000, L500.4100, L509.1000, L501.9520, L501.5200, L506.1000, L500.4050, L501.9985, L502.000, L501.5280 #### [facility] [address] [place], [address] GAP 6 Normal 5-15 [facility] Comment on above: Order Comment: 24HR NA URINE LIPID Performed By: #### L 500.7000, L500.4100, L509.1000, L501.9520, L501.5200, L506.1000, L500.4050, L501.9985, L502.000, L501.5280 #### [facility] [address] [place], [address] GFR/1.73 sq M.predicted among non-blacks MDRD (S/P/Bld) [Vol rate/Area] 76 mL/min/{1.73_m2} Normal >60 [facility] Comment on above: Order Comment: 24HR NA URINE LIPID Result Comment: Non- GFR Calc Performed By: #### L 500.7000, L500.4100, L509.1000, L501.9520, L501.5200, L506.1000, L500.4050, L501.9985, L502.000, L501.5280 #### [facility] [address] [place], [address] Globulin (S) [Mass/Vol] 3.4 g/dL Normal 2.2-4.2 [facility] Comment on above: Order Comment: 24HR NA URINE LIPID Performed By: #### L 500.7000, L500.4100, L509.1000, L501.9520, L501.5200, L506.1000, L500.4050, L501.9985, L502.000, L501.5280 #### [facility] [address] [place], [address] Glucose [Mass/Vol] 146 mg/dL High 74-106 [facility] Comment on above: Order Comment: 24HR NA URINE LIPID Result Comment: Fast ing Glucose result greater than or equal to 126 mg/dL suggests DIABETES MELLITUS per A.D.A. criteria. Performed By: #### L 500.7000, L500.4100, L509.1000, L501.9520, L501.5200, L506.1000, L500.4050, L501.9985, L502.000, L501.5280 #### [facility] [address] [facility] [place], [address] Potassium [Moles/Vol] 3.6 mmol/L Normal 3.5-5.1 [facility] Comment on above: Order Comment: 24HR NA URINE LIPID Performed By: #### L 500.7000, L500.4100, L509.1000, L501.9520, L501.5200, L506.1000, L500.4050, L501.9985, L502.000, L501.5280 #### [facility] [address] [place], [address] Sodium [Moles/Vol] 141 mmol/L Normal 136-145 [facility] Comment on above: Order Comment: 24HR NA URINE LIPID Performed By: #### L 500.7000, L500.4100, L509.1000, L501.9520, L501.5200, L506.1000, L500.4050, L501.9985, L502.000, L501.5280 #### [facility] [address] [place], [address] T PROT 7.0 g/dL Normal 6.4-8.2 [facility] Comment on above: Order Comment: 24HR NA URINE LIPID Performed By: #### L 500.7000, L500.4100, L509.1000, L501.9520, L501.5200, L506.1000, L500.4050, L501.9985, L502.000, L501.5280 #### [facility] [address] [facility] [place], [place], [phone] ([phone] Urea nitrogen [Mass/Vol] 12 mg/dL Normal 7-18 [facility] Comment on above: Order Comment: 24HR NA URINE LIPID Performed By: #### L 500.7000, L500.4100, L509.1000, L501.9520, L501.5200, L506.1000, L500.4050, L501.9985, L502.000, L501.5280 #### [facility] [address] [facility] [place], [address] DBT Breast - bilateral scree maryse 07-11-2024 IMPRESSION: NEGATIVE There is no mammographic evidence of malignancy. A 1 year screening mammogram is recommended. The exam was reviewed by a staff physician. Luis perkins,maryjane/stanford:07/11/20 24 09:46:30 Client Relations Representative(s): RT Liam(R)(M), [facility] letter sent: Normal over 40 Mammogram BI-RADS: Category 1: Negative Multiple national specialty organizations have released breast cancer screening guidelines for women at average risk for developing breast cancer - guidelines that are based on both evidence and opinion, yet differ on when to start and how often to screen for breast cancer. With representation from Breast Imaging, Internal Medicine, Women's Health, Family Medicine, and Medical/Surgical Oncology, the [facility] has carefully reviewed the data and reached the following consensus: 1) All women should engage in shared decision-making with their providers to decide when to start and how often to screen; 2) All women should have the opportunity to start screening mammography at age 40; 3) For women ages 45-55, we recommend annual screening mammograms; 4) For women ages 55 and over, we support both the transition from an annual to a biennial interval if this aligns more with patient's values and preferences, or continuation with annual screening; 5) All women should discuss with their providers when to stop screening mammograms. Sound Controller: Stanford Transcribe Date/Time: Jul 11 2024 8:53A Dictated by: KERMIT ARDON, DO This examination was interpreted and the report reviewed and electronically signed by: LUIS TORRES MD on Jul 11 2024 9:46AM [facility] DIVISION OF RADIOLOGY * * *Final Report* * * DATE OF EXAM: Jul 11 2024 9:17AM [facility] 0582 - [facility] SCREENING W GLORIA / PROCEDURE REASON: Encounter for screening mammogram for malignant neoplasm of breast * * * * Physician Interpretation * * * * RESULT: #[id number] - J[facility]ONATAN SCREENING W GLORIA BILATERAL DIGITAL SCREENING MAMMOGRAM TOMOSYNTHESIS WITH CAD: 07/11/2024 HISTORY: Encounter For Screening Mammogram For Malignant Neoplasm Of Breast / Screening Mammogram-Patient reports NO symptoms. /priors available for comparison. RESULT: TECHNIQUE: The study was acquired using full field digital technology and interpreted from soft copy. Digital Breast Tomosynthesis (DBT) images were obtained and used to assist in the interpretation of this examination. Current study was also evaluated with a Computer Aided Detection (CAD). Comparison is made to exams dated: 05/10/2023 mammogram, 10/03/2021 mammogram, and 08/15/2020 mammogram - [facility]. There are scattered areas of fibroglandular density. No significant masses, calcifications, or other findings are seen in either breast. There has been no significant interval change. DIVISION OF RADIOLOGY Provider, [facility] [place] - 07/11/2024 * * *Final Report* * * DATE OF EXAM: Jul 11 2024 9:17AM [facility] 0582 - [facility] SCREENING W GLORIA / PROCEDURE REASON: Encounter for screening mammogram for malignant neoplasm of breast * * * * Physician Interpretation * * * * RESULT: #[id number] - JHONATAN SCREENING W GLORIA BILATERAL DIGITAL SCREENING MAMMOGRAM TOMOSYNTHESIS WITH CAD: 07/11/2024 HISTORY: Encounter For Screening Mammogram For Malignant Neoplasm Of Breast / Screening Mammogram-Patient reports NO symptoms. /priors available for comparison. RESULT: TECHNIQUE: The study was acquired using full field digital technology and interpreted from soft copy. Digital Breast Tomosynthesis (DBT) images were obtained and used to assist in the interpretation of this examination. Current study was also evaluated with a Computer Aided Detection (CAD). Comparison is made to exams dated: 05/10/2023 mammogram, 10/03/2021 mammogram, and 08/15/2020 mammogram - [facility]. There are scattered areas of fibroglandular density. No significant masses, calcifications, or other findings are seen in either breast. There has been no significant interval change. IMPRESSION IMPRESSION: NEGATIVE There is no mammographic evidence of malignancy. A 1 year screening mammogram is recommended. The exam was reviewed by a staff physician. Luis perkins,maryjane/stanford:07/11/20 09:46:30 Client Relations Representative(s): RT Liam(R)(M), [facility] letter sent: Normal over 40 Mammogram BI-RADS: Category 1: Negative Multiple national specialty organizations have released breast cancer screening guidelines for women at average risk for developing breast cancer - guidelines that are based on both evidence and opinion, yet differ on when to start and how often to screen for breast cancer. With representation from Breast Imaging, Internal Medicine, Women's Health, Family Medicine, and Medical/Surgical Oncology, the [facility] has carefully reviewed the data and reached the following consensus: 1) All women should engage in shared decision-making with their providers to decide when to start and how often to screen; 2) All women should have the opportunity to start screening mammography at age 40; 3) For women ages 45-55, we recommend annual screening mammograms; 4) For women ages 55 and over, we support both the transition from an annual to a biennial interval if this aligns more with patient's values and preferences, or continuation with annual screening; 5) All women should discuss with their providers when to stop screening mammograms. Sound Controller: Stanford Samaniegorilynnette Date/Time: Jul 11 2024 8:53A Dictated by: KERMIT ARDON, DO This examination was interpreted and the report reviewed and electronically signed by: LUIS TORRES MD on Jul 11 2024 9:46AM EST [facility] Radiology Study observation (narrative) [facility] DBT Breast - bilateral scree ningOrdered By: [facility] Provider on 07-11-2024 [facility] Electrolytes, 24 HR URon UR CL TNP Normal Not Establ. [facility] [facility] Comment on above: Performed By: #### L 500.7000, L500.4100, L509.1000, L501.9520, L501.5200, L506.1000, L500.4050, L501.9985, L502.000, L501.5280 #### [facility] [address] [place], [place], [id number] (931) UR CL/24 hr TNP Normal 110-250 [facility] Comment on above: Performed By: #### L 500.7000, L500.4100, L509.1000, L501.9520, L501.5200, L506.1000, L500.4050, L501.9985, L502.000, L501.5280 #### [facility] [address] [place], [place], [id number] (926 UR K TNP Normal Not Establ. [facility] Comment on above: Performed By: #### L 500.7000, L500.4100, L509.1000, L501.9520, L501.5200, L506.1000, L500.4050, L501.9985, L502.000, L501.5280 #### [facility] [address] [place], [place], [address] UR K/24 HR TNP Normal 25-125 [facility] Comment on above: Performed By: #### L 500.7000, L500.4100, L509.1000, L501.9520, L501.5200, L506.1000, L500.4050, L501.9985, L502.000, L501.5280 #### [facility] [address] [place], [place], [id number] UR NA 45 mmol/L Normal Not Establ. [facility] Comment on above: Performed By: #### L 500.7000, L500.4100, L509.1000, L501.9520, L501.5200, L506.1000, L500.4050, L501.9985, L502.000, L501.5280 #### [facility] [address] [place], [place], [id number] UR NA/24HR 95 mmol/24h Normal 40-220 [facility] Comment on above: Performed By: #### L 500.7000, L500.4100, L509.1000, L501.9520, L501.5200, L506.1000, L500.4050, L501.9985, L502.000, L501.5280 #### [facility] [address] [place], [place], [id number] Hemoglobin A1con 07-11-2024 HbA1c (Bld) [Mass fraction] 7.0 % Normal 4.6 - 7.1 % [facility], [facility].; [facility]. Comment on above: Result Comment: Norm al < 5.7 % Prediabetic 5.7 - 6.4 % Diabetic >or= 6.5 % Please note range changes. Performed By: #### L 500.7000, L500.4100, L509.1000, L501.9520, L501.5200, L506.1000, L500.4050, L501.9985, L502.000, L501.5280 #### [facility] [address] [place], [address] Lipid Profileon 07-11-2024 Cholesterol [Mass/Vol] 100 mg/dL Normal 200 [facility] Comment on above: Order Comment: 24HR NA URINE LIPID Result Comment: <200 mg/dL Desirable 200-240 mg/dL Borderline >240 mg/dL High Risk Performed By: #### L 500.7000, L500.4100, L509.1000, L501.9520, L501.5200, L506.1000, L500.4050, L501.9985, L502.000, L501.5280 #### [facility] [address] [place], [address] Cholesterol in HDL [Mass/Vol] 45 mg/dL Normal [facility] Comment on above: Order Comment: 24HR NA URINE LIPID Result Comment: The drugs N-Acetylcysteine and Metamizole may falsely depress this assay. Reference Range HDL <40 mg/dL Low HDL Cholesterol HDL >or= 60 mg/dL High HDL Cholesterol Performed By: #### L 500.7000, L500.4100, L509.1000, L501.9520, L501.5200, L506.1000, L500.4050, L501.9985, L502.000, L501.5280 #### [facility] [address] [place], [address] Cholesterol in LDL [Mass/Vol] 24 mg/dL Normal 0-130 [facility] Comment on above: Order Comment: 24HR NA URINE LIPID Performed By: #### L 500.7000, L500.4100, L509.1000, L501.9520, L501.5200, L506.1000, L500.4050, L501.9985, L502.000, L501.5280 #### [facility] [address] [place], [address] Cholesterol in VLDL [Mass/Vol] 31 mg/dL Normal 5-40 [facility] Comment on above: Order Comment: 24HR NA URINE LIPID Performed By: #### L 500.7000, L500.4100, L509.1000, L501.9520, L501.5200, L506.1000, L500.4050, L501.9985, L502.000, L501.5280 #### [facility] [address] [place], [place], [address] Triglyceride [Mass/Vol] 157 mg/dL Normal [facility] Comment on above: Order Comment: 24HR NA URINE LIPID Result Comment: The drugs N-Acetylcysteine and Metamizole may falsely depress this assay. Serum Triglycerides Reference Interval Normal <150 mg/dL Borderline high 150 - 199 mg/dL High 200 - 499 mg/dL Very High > or = 500 mg/dL Performed By: #### L 500.7000, L500.4100, L509.1000, L501.9520, L501.5200, L506.1000, L500.4050, L501.9985, L502.000, L501.5280 #### [facility] [address] [place], [place], [address] [facility] SCREENING W TOMOon 07-11 JHONATAN SCREENING W GLORIA * * *Final Report* * * DATE OF EXAM: Jul 11 2024 9:17AM [facility] 0582 - [facility] SCREENING W GLORIA / PROCEDURE REASON: Encounter for screening mammogram for malignant neoplasm of breast * * * * Physician Interpretation * * * * RESULT: #[id number] - [facility] SCREENING W GLORIA BILATERAL DIGITAL SCREENING MAMMOGRAM TOMOSYNTHESIS WITH CAD: 07/11/2024 HISTORY: Encounter For Screening Mammogram For Malignant Neoplasm Of Breast / Screening Mammogram-Patient reports NO symptoms. /priors available for comparison. RESULT: TECHNIQUE: The study was acquired using full field digital technology and interpreted from soft copy. Digital Breast Tomosynthesis (DBT) images were obtained and used to assist in the interpretation of this examination. Current study was also evaluated with a Computer Aided Detection (CAD). Comparison is made to exams dated: 05/10/2023 mammogram, 10/03/2021 mammogram, and 08/15/2020 mammogram - [facility]. There are scattered areas of fibroglandular density. No significant masses, calcifications, or other findings are seen in either breast. There has been no significant interval change. IMPRESSION: NEGATIVE There is no mammographic evidence of malignancy. A 1 year screening mammogram is recommended. The exam was reviewed by a staff physician. Luis Ardon D.O. tr,maryjane/stanford:07/11/20 24 09:46:30 Client Relations Representative(s): Robin Mayfield RT(R)(M), [facility] letter sent: Normal over 40 Mammogram BI-RADS: Category 1: Negative Multiple national specialty organizations have released breast cancer screening guidelines for women at average risk for developing breast cancer - guidelines that are based on both evidence and opinion, yet differ on when to start and how often to screen for breast cancer. With representation from Breast Imaging, Internal Medicine, Women's Health, Family Medicine, and Medical/Surgical Oncology, the [facility] has carefully reviewed the data and reached the following consensus: 1) All women should engage in shared decision-making with their providers to decide when to start and how often to screen; 2) All women should have the opportunity to start screening mammography at age 40; 3) For women ages 45-55, we recommend annual screening mammograms; 4) For women ages 55 and over, we support both the transition from an annual to a biennial interval if this aligns more with patient's values and preferences, or continuation with annual screening; 5) All women should discuss with their providers when to stop screening mammograms. Sound Controller: Stanford Transcribe Date/Time: Jul 11 2024 8:53A Dictated by: KERMIT ARDON DO This examination was interpreted and the report reviewed and electronically signed by: LUIS TORRES MD on Jul 11 2024 9:46AM EST [id number] CN Normal [facility] Magnesiumon 07-11-2024 Magnesium [Mass/Vol] 2.3 mg/dL Normal 1.6-2.6 [facility] Comment on above: Order Comment: 24HR NA URINE LIPID Performed By: #### L 500.7000, L500.4100, L509.1000, L501.9520, L501.5200, L506.1000, L500.4050, L501.9985, L502.000, L501.5280 #### [facility] [address] [place], [address] PTHINon 07-11-2024 PTH 87.6 pg/mL High 18.4-80.1 [facility] Comment on above: Performed By: #### L 500.7000, L500.4100, L509.1000, L501.9520, L501.5200, L506.1000, L500.4050, L501.9985, L502.000, L501.5280 #### [facility] [address] [place], [place], [id number] Thyroid Stim Hormone (TSH)on 07-11-2024 TSH 1.110 uIU/mL Normal 0.358-3.740 [facility] Comment on above: Order Comment: 24HR NA URINE LIPID Performed By: #### L 500.7000, L500.4100, L509.1000, L501.9520, L501.5200, L506.1000, L500.4050, L501.9985, L502.000, L501.5280 #### [facility] [address] [place], [place], [id number] Vitamin D,25 Hydroxyon 07-11 Vitamin D 25-OH 36.4 ng/mL Normal [facility] Comment on above: Result Comment: Keshia min D 25(OH) Status Range Deficiency <20 ng/mL (50nmol/L) Insufficiency 20 - 30 ng/mL (50 - 75 nmol/L) Sufficiency 30 - 100 ng/mL (75 - 250 nmol/L) Toxicity >100 ng/mL (>250 nmol/L) Performed By: #### L 500.7000, L500.4100, L509.1000, L501.9520, L501.5200, L506.1000, L500.4050, L501.9985, L502.000, L501.5280 #### [facility] [address] [place], [address] Vitamin D,25 Hydroxyon 04-10 Vitamin D 25-OH 36.8 ng/mL Normal [facility] Comment on above: Result Comment: Keshia min D 25(OH) Status Range Deficiency <20 ng/mL (50nmol/L) Insufficiency 20 - 30 ng/mL (50 - 75 nmol/L) Sufficiency 30 - 100 ng/mL (75 - 250 nmol/L) Toxicity >100 ng/mL (>250 nmol/L) Performed By: #### L 500.7000, L500.4100, L509.1000, L501.9520, L501.5200, L506.1000, L500.4050, L501.9985, L502.000, L501.5280 #### [facility] [address] [place], [address] Comprehensive Metabolic Prof ilon 04-08-2024 Albumin [Mass/Vol] 3.7 g/dL Normal 3.2-5.0 [facility] Comment on above: Performed By: #### L 500.7000, L500.4100, L509.1000, L501.9520, L501.5200, L506.1000, L500.4050, L501.9985, L502.000, L501.5280 #### [facility] [address] [place], [place], [id number] Albumin/Globulin [Mass ratio] 1.2 {ratio} Normal 0.9-2.4 [facility] Comment on above: Performed By: #### L 500.7000, L500.4100, L509.1000, L501.9520, L501.5200, L506.1000, L500.4050, L501.9985, L502.000, L501.5280 #### [facility] [address] [place], [address] ALK P 125 U/L High 45-117 [facility] Comment on above: Performed By: #### L 500.7000, L500.4100, L509.1000, L501.9520, L501.5200, L506.1000, L500.4050, L501.9985, L502.000, L501.5280 #### [facility] [address] [place], [address] ALT [Catalytic activity/Vol] 37 U/L Normal 13-56 [facility] Comment on above: Performed By: #### L 500.7000, L500.4100, L509.1000, L501.9520, L501.5200, L506.1000, L500.4050, L501.9985, L502.000, L501.5280 #### [facility] [address] [place], [place], [phone] (385) AST [Catalytic activity/Vol] 22 U/L Normal 15-37 [facility] Comment on above: Performed By: #### L 500.7000, L500.4100, L509.1000, L501.9520, L501.5200, L506.1000, L500.4050, L501.9985, L502.000, L501.5280 #### [facility] [address] [place], [place], [id number] Bilirubin [Mass/Vol] 0.60 mg/dL Normal 0.20-1.00 [facility] Comment on above: Result Comment: For patients on eltrombopag therapy, use of Dimension [place] TBIL is not recommended. Performed By: #### L 500.7000, L500.4100, L509.1000, L501.9520, L501.5200, L506.1000, L500.4050, L501.9985, L502.000, L501.5280 #### [facility] [address] [place], [address] BUN/CRE 16.2 RATIO Normal 10-20 [facility] Comment on above: Performed By: #### L 500.7000, L500.4100, L509.1000, L501.9520, L501.5200, L506.1000, L500.4050, L501.9985, L502.000, L501.5280 #### [facility] [address] [place], [address] CA,Total 8.8 mg/dL Normal 8.5-10.1 [facility] Comment on above: Performed By: #### L 500.7000, L500.4100, L509.1000, L501.9520, L501.5200, L506.1000, L500.4050, L501.9985, L502.000, L501.5280 #### [facility] [address] [place], [place], [phone] ([phone] Chloride [Moles/Vol] 110 mmol/L High 98-107 [facility] Comment on above: Performed By: #### L 500.7000, L500.4100, L509.1000, L501.9520, L501.5200, L506.1000, L500.4050, L501.9985, L502.000, L501.5280 #### [facility] [address] [place], [address] CO2 [Moles/Vol] 25.0 mmol/L Normal 21.0-32.0 [facility] Comment on above: Performed By: #### L 500.7000, L500.4100, L509.1000, L501.9520, L501.5200, L506.1000, L500.4050, L501.9985, L502.000, L501.5280 #### [facility] [address] [place], [address] Creatinine [Mass/Vol] 0.80 mg/dL Normal 0.55-1.02 [facility] Comment on above: Result Comment: The validity of the calculated GFR GFRAA in patients over 70 years has not been determined. Clinical correlation is essential. Performed By: #### L 500.7000, L500.4100, L509.1000, L501.9520, L501.5200, L506.1000, L500.4050, L501.9985, L502.000, L501.5280 #### [facility] [address] [place], [address] EST GFR - AA 94 mL/min Normal >60 [facility] Comment on above: Result Comment: Afri can Bahamian GFR Calc Performed By: #### L 500.7000, L500.4100, L509.1000, L501.9520, L501.5200, L506.1000, L500.4050, L501.9985, L502.000, L501.5280 #### [facility] [address] [place], [place], [phone] (456) GAP 5 Normal 5-15 [facility] Comment on above: Performed By: #### L 500.7000, L500.4100, L509.1000, L501.9520, L501.5200, L506.1000, L500.4050, L501.9985, L502.000, L501.5280 #### [facility] [address] [place], [place], [id number] (148) GFR/1.73 sq M.predicted among non-blacks MDRD (S/P/Bld) [Vol rate/Area] 78 mL/min/{1.73_m2} Normal >60 [facility] Comment on above: Result Comment: Non- GFR Calc Performed By: #### L 500.7000, L500.4100, L509.1000, L501.9520, L501.5200, L506.1000, L500.4050, L501.9985, L502.000, L501.5280 #### [facility] [address] [place], [place], [phone] (192) Globulin (S) [Mass/Vol] 3.2 g/dL Normal 2.2-4.2 [facility] Comment on above: Performed By: #### L 500.7000, L500.4100, L509.1000, L501.9520, L501.5200, L506.1000, L500.4050, L501.9985, L502.000, L501.5280 #### [facility] [address] [place], [address] Glucose [Mass/Vol] 131 mg/dL High 74-106 [facility] Comment on above: Result Comment: Fast ing Glucose result greater than or equal to 126 mg/dL suggests DIABETES MELLITUS per A.D.A. criteria. Performed By: #### L 500.7000, L500.4100, L509.1000, L501.9520, L501.5200, L506.1000, L500.4050, L501.9985, L502.000, L501.5280 #### [facility] [address] [place], [place], [id number] (971) Potassium [Moles/Vol] 4.0 mmol/L Normal 3.5-5.1 [facility] Comment on above: Performed By: #### L 500.7000, L500.4100, L509.1000, L501.9520, L501.5200, L506.1000, L500.4050, L501.9985, L502.000, L501.5280 #### [facility] [address] [place], [address] Sodium [Moles/Vol] 140 mmol/L Normal 136-145 [facility] Comment on above: Performed By: #### L 500.7000, L500.4100, L509.1000, L501.9520, L501.5200, L506.1000, L500.4050, L501.9985, L502.000, L501.5280 #### [facility] [address] [place], [place], [id number] (479) T PROT 6.9 g/dL Normal 6.4-8.2 [facility] Comment on above: Performed By: #### L 500.7000, L500.4100, L509.1000, L501.9520, L501.5200, L506.1000, L500.4050, L501.9985, L502.000, L501.5280 #### [facility] [address] [place], [place], [id number] Urea nitrogen [Mass/Vol] 13 mg/dL Normal 7-18 [facility] Comment on above: Performed By: #### L 500.7000, L500.4100, L509.1000, L501.9520, L501.5200, L506.1000, L500.4050, L501.9985, L502.000, L501.5280 #### [facility] [address] [place], [place], [id number] Hemoglobin A1con 04-08-2024 HbA1c (Bld) [Mass fraction] 6.6 % High 3.8-5.6 [facility] Comment on above: Result Comment: Norm al < 5.7 % Prediabetic 5.7 - 6.4 % Diabetic >or= 6.5 % Please note range changes. Performed By: #### L 500.7000, L500.4100, L509.1000, L501.9520, L501.5200, L506.1000, L500.4050, L501.9985, L502.000, L501.5280 #### [facility] [address] [place], [place], [id number] Magnesiumon 04-08-2024 Magnesium [Mass/Vol] 2.2 mg/dL Normal 1.6-2.6 [facility] Comment on above: Performed By: #### L 500.7000, L500.4100, L509.1000, L501.9520, L501.5200, L506.1000, L500.4050, L501.9985, L502.000, L501.5280 #### [facility] [address] [place], [address] Microalb:Creat Ratio,Random URon 04-08-2024 Creatinine [Mass/Vol] 187.00 mg/dL Normal NO RAN GE EST. [facility] Comment on above: Performed By: #### L 500.7000, L500.4100, L509.1000, L501.9520, L501.5200, L506.1000, L500.4050, L501.9985, L502.000, L501.5280 #### [facility] [address] [place], [address] MALB:CRE 10.3 mg/g CRE Normal <30 mg/g CRE [facility] Comment on above: Performed By: #### L 500.7000, L500.4100, L509.1000, L501.9520, L501.5200, L506.1000, L500.4050, L501.9985, L502.000, L501.5280 #### [facility] [address] [place], [address] MICROALBUMIN,UR 19.2 mg/L Normal NO RANGE EST. [facility] Comment on above: Performed By: #### L 500.7000, L500.4100, L509.1000, L501.9520, L501.5200, L506.1000, L500.4050, L501.9985, L502.000, L501.5280 #### [facility] [address] [place], [address] Basophil percentageOrdered B y: Charlene Capone on 01-10-2024 Bilirubin [Mass/Vol] 0.70 mg/dL 0.20-1.00 [facility] Comment on above: For patients on eltr ombopag therapy, use of Dimension [place] TBIL is not recommended. Chloride [Moles/Vol] 110 mmol/L 98-107 [facility] Glucose [Mass/Vol] 134 mg/dL 74-106 [facility] Comment on above: Fasting Glucose resu lt greater than or equal to 126 mg/dL suggests DIABETES MELLITUS per A.D.A. criteria. Potassium [Moles/Vol] 4.3 mmol/L 3.5-5.1 [facility] Protein [Mass/Vol] 7.3 g/dL 6.4-8.2 [facility] Sodium [Moles/Vol] 141 mmol/L 136-145 [facility] - Chemistry and C hemistry - challengeOrdered By: Charlene Capone on 01-10-2024 Albumin/Globulin [Mass ratio] 1.1 {ratio} 0.9-2.4 [facility] ALP [Catalytic activity/Vol] 112 U/L 45-117 [facility] ALT [Catalytic activity/Vol] 46 U/L 13-56 [facility] CO2 [Moles/Vol] 26.0 mmol/L 21.0-32.0 [facility] Globulin (S) [Mass/Vol] 3.4 g/dL 2.2-4.2 [facility] Urea nitrogen/Creatinine [Mass ratio] 17.8 mg/mg 10-20 [facility] No Panel Informationon 01-09 134 mg/dL Abnormal 74 - 106 mg/dL [facility], [facility].; [facility], [facility]. Work Phone: 14 mg/dL Normal 7 - 18 mg/dL [facility], [facility].; [facility], [facility]. Work Phone: 0.79 mg/dL Normal 0.55 - 1.02 mg/dL [facility], [facility].; [place], [facility]. Work Phone: 80 mL/min Normal [facility].; [facility] [employer]. Work Phone: 96 mL/min Normal [facility], [facility].; [place], [facility]. Work Phone: 17.8 {RATIO} Normal 10 - 20 {RATIO} [facility], [facility].; [facility]. Work Phone: 7.3 g/dL Normal 6.4 - 8.2 g/dL [facility].; [facility], [facility]. Work Phone: 3.9 g/dL Normal 3.2 - 5.0 g/dL [facility].; [facility], [facility]. Work Phone: 3.4 g/dL Normal 2.2 - 4.2 g/dL [facility], [facility].; [facility], [facility]. Work Phone: 1.1 {RATIO} Normal 0.9 - 2.4 {RATIO} [facility], [facility].; [facility], [facility]. Work Phone: 9.2 mg/dL Normal 8.5 - 10.1 mg/dL [facility], [facility].; [facility], [facility]. Work Phone: 28 U/L Normal 15 - 37 U/L [facility].; [facility] Work Phone: 112 U/L Normal 45 - 117 U/L [facility], [facility].; [facility], [facility]. Work Phone: 46 U/L Normal 13 - 56 U/L [facility], [facility].; [facility], [facility]. Work Phone: 0.70 mg/dL Normal 0.20 - 1.00 mg/dL [facility], [facility].; [facility], [facility]. Work Phone: 141 mmol/L Normal 136 - 145 mmol/L [facility].; [facility], [facility]. Work Phone: 4.3 mmol/L Normal 3.5 - 5.1 mmol/L [facility], [facility].; [facility], [facility]. Work Phone: 110 mmol/L Abnormal 98 - 107 mmol/L [facility], [facility].; [facility], [facility]. Work Phone: 26.0 mmol/L Normal 21.0 - 32.0 mmol/L [facility].; [facility] Work Phone: 5 Normal 5 - 15 [facility]; [facility] Work Phone: 6.7 Abnormal 3.8 - 5.6 [facility]; [facility] Work Phone: No Panel InformationOrdered By: Charlene Capone on 01-10-2024 Estimated GFR (MDRD) Amer 96 mL/min >60 [facility] Comment on above: GFR Calc Estimated GFR (MDRD) Non-Af Amer 80 mL/min >60 [facility] Comment on above: Non- GFR Calc Serum or plasma calcium orlin urement (mass/volume)Ordered By: Charlene Capone on 01-10-2024 Calcium [Mass/Vol] 9.2 mg/dL 8.5-10.1 [facility] Serum or plasma creatinine m easurement (mass/volume)Ordered By: Charlene Capone on 01-10-2024 Creatinine [Mass/Vol] 0.79 mg/dL 0.55-1.02 [facility] Comment on above: The validity of the calculated GFR & GFRAA in patients over 70 years has not been determined. Clinical correlation is essential. Serum or plasma urea nitroge n measurement (mass/volume)Ordered By: Charlene Capone on 01-10-2024 Urea nitrogen [Mass/Vol] 14 mg/dL 7-18 [facility] Thin prep Papanicolaou smear with manual screeningOrdered By: Charlene Capone on 01-10-2024 Thin prep Papanicolaou smear with manual screening 3.9 g/dL 3.2-5.0 [facility] Thin prep Papanicolaou smear with manual screening 28 U/L 15-37 [facility] Thin prep Papanicolaou smear with manual screening 5 5-15 [facility] Whole blood hemoglobin A1c/t otal hemoglobin ratio (mass fraction)Ordered By: Charlene Capone on 01-10-2024 HbA1c (Bld) [Mass fraction] 6.7 % 3.8-5.6 [facility] Comment on above: Normal < 5.7 % Predi abetic 5.7 - 6.4 % Diabetic >or= 6.5 % Please note range changes. Glucose Glucometer (BldC) [M ass/Vol]Ordered By: gM Brooks on 11-12-2023 Glucose [Mass/Vol] 156 mg/dL 74-106 [facility] Comment on above: MANAGEMENT OF PATIEN T CARE PER NURSING PROTOCOL Absolute lymphocyte countOrd ered By: Mg Brooks on 11-05-2023 Lymphocytes Auto (Unsp spec) [#/Vol] 1.26 10*3/uL 0.83-4.51 [facility] Basophil percentageOrdered B y: Mg Brooks on 11-05-2023 Basophils/100 WBC (Bld) 0.5 % 0-1 [facility] Eosinophils/100 WBC (Bld) 2.5 % 0-5 [facility] Neutrophils (Bld) [#/Vol] 2.4 10*3/uL 2.0-7.7 [facility] Neutrophils/100 WBC (Bld) 55.4 % 47-70 [facility] WBC (Bld) [#/Vol] 4.3 10*3/uL 4.4-11.0 [facility] Blood erythrocytes count (nu mber/volume)Ordered By: Mg Brooks on 11-05-2023 RBC (Bld) [#/Vol] 5.15 10*6/uL 4.2-5.4 [facility] Blood hemoglobin measurement (mass/volume)Ordered By: Mg Brooks on 11-05-2023 Hemoglobin (Bld) [Mass/Vol] 13.4 g/dL 12.0-15.0 [facility] Blood lymphocytes/100 leukoc ytesOrdered By: Mg Brooks on 11-05-2023 Lymphocytes/100 WBC (Bld) 29.1 % 19-41 [facility] Blood monocytes/100 leukocyt esOrdered By: Mg Brooks on 11-05-2023 Monocytes/100 WBC (Bld) 12.5 % 0-10 [facility] Blood platelet mean volumeOr dered By: Mg Brooks on 11-05-2023 Platelet mean volume (Bld) [Entitic vol] 9.6 fL 6.2-12.0 [facility] Determination of erythrocyte mean corpuscular volume (MCV)Ordered By: Mg Brooks on 11-05-2023 MCV (RBC) [Entitic vol] 84.3 fL 81-99 [facility] Hematocrit Auto (Bld) [Volum e fraction]Ordered By: Mg Brooks on 11-05-2023 Hematocrit (Bld) [Volume fraction] 43.4 % 37-47 [facility] Laboratory - Hematology and Cell countsOrdered By: Mg Brooks on 11-05-2023 Erythrocyte distribution width (RBC) [Entitic vol] 48.7 fL 35.1-43.9 [facility] Erythrocyte distribution width (RBC) [Ratio] 15.7 % 11.6-14.6 [facility] Immature granulocytes/100 WBC (Bld) 0.000 % 0.0-0.9 [facility] Comment on above: IG% - Immature Granu locytes (promyelocytes, myelocytes and metamyelocytes) > 1% indicates that a LEFT SHIFT is Present. MCH (RBC) [Entitic mass] 26.0 pg 27.0-32.0 [facility] Nucleated RBC/100 WBC (Bld) [Ratio] 0 % 0-5 [facility] MCHC Auto (RBC) [Mass/Vol]Or dered By: Mg Brooks on 11-05-2023 MCHC (RBC) [Mass/Vol] 30.9 g/dL 32-36 [facility] Platelets bldOrdered By: Doug Brooks on 11-05-2023 Platelets (Bld) [#/Vol] 307 10*3/uL 150-450 [facility] Basophil percentageOrdered B y: River Dai on 10-09-2023 Bilirubin [Mass/Vol] 0.50 mg/dL 0.20-1.00 [facility] Comment on above: For patients on eltr ombopag therapy, use of Dimension [place] TBIL is not recommended. Chloride [Moles/Vol] 110 mmol/L 98-107 [facility] Cholesterol [Mass/Vol] 101 mg/dL <200 [facility] Comment on above: <200 mg/dL Desirable 200-240 mg/dL Borderline >240 mg/dL High Risk Glucose [Mass/Vol] 135 mg/dL 74-106 [facility] Comment on above: Fasting Glucose resu lt greater than or equal to 126 mg/dL suggests DIABETES MELLITUS per A.D.A. criteria. Potassium [Moles/Vol] 4.3 mmol/L 3.5-5.1 [facility] Protein [Mass/Vol] 7.0 g/dL 6.4-8.2 [facility] Sodium [Moles/Vol] 141 mmol/L 136-145 [facility] Triglyceride [Mass/Vol] 110 mg/dL <199 [facility] Comment on above: The drugs N-Acetylcy steine and Metamizole may falsely depress this assay.Serum Triglycerides Reference Interval Normal <150 mg/dL Borderline high 150 - 199 mg/dL High 200 - 499 mg/dL Very High > or = 500 mg/dL Laboratory - Chemistry and C hemistry - challengeOrdered By: River Dai on 10-09-2023 ALP [Catalytic activity/Vol] 104 U/L 45-117 [facility] ALT [Catalytic activity/Vol] 32 U/L 13-56 [facility] CO2 [Moles/Vol] 28.0 mmol/L 21.0-32.0 [facility] Globulin (S) [Mass/Vol] 3.4 g/dL 2.2-4.2 [facility] Urea nitrogen/Creatinine [Mass ratio] 15.7 mg/mg 10-20 [facility] No Panel InformationOrdered By: River Dai on 10-09-2023 Estimated GFR (MDRD) Amer 83 mL/min >60 [facility] Comment on above: GFR Calc Estimated GFR (MDRD) Non-Af Amer 69 mL/min >60 [facility] Comment on above: Non- GFR Calc Serum or plasma albumin orlin urement (mass/volume)Ordered By: River Dai on 10-09-2023 Albumin [Mass/Vol] 3.6 g/dL 3.2-5.0 [facility] Serum or plasma albumin/glob ulin mass ratioOrdered By: River Dai on 10-09-2023 Albumin/Globulin [Mass ratio] 1.1 {ratio} 0.9-2.4 [facility] Serum or plasma calcium orlin urement (mass/volume)Ordered By: River Dai on 10-09-2023 Calcium [Mass/Vol] 8.7 mg/dL 8.5-10.1 [facility] Serum or plasma cholesterol in HDL measurement (mass/volume)Ordered By: River Dai on 10-09-2023 Cholesterol in HDL [Mass/Vol] 44 mg/dL >40 [facility] Comment on above: The drugs N-Acetylcy steine and Metamizole may falsely depress this assay. Reference Range HDL <40 mg/dL Low HDL Cholesterol HDL >or= 60 mg/dL High HDL Cholesterol Serum or plasma cholesterol in VLDL measurement (mass/volume)Ordered By: River Dai on 10-09-2023 Cholesterol in VLDL [Mass/Vol] 22 mg/dL 5-40 [facility] Serum or plasma creatinine m easurement (mass/volume)Ordered By: River Dai on 10-09-2023 Creatinine [Mass/Vol] 0.89 mg/dL 0.55-1.02 [facility] Comment on above: The validity of the calculated GFR & GFRAA in patients over 70 years has not been determined. Clinical correlation is essential. Serum or plasma low density lipoprotein (LDL) cholesterol measurement (mass/volume)Ordered By: River Dai on 10-09-2023 Cholesterol in LDL [Mass/Vol] 35 mg/dL 0-130 [facility] Serum or plasma urea nitroge n measurement (mass/volume)Ordered By: River Dai on 10-09-2023 Urea nitrogen [Mass/Vol] 14 mg/dL 7-18 [facility] Thin prep Papanicolaou smear with manual screeningOrdered By: River Dai on 10-09-2023 Thin prep Papanicolaou smear with manual screening 18 U/L 15-37 [facility] Thin prep Papanicolaou smear with manual screening 3 5-15 [facility] Whole blood hemoglobin A1c/t otal hemoglobin ratio (mass fraction)Ordered By: River Dai on 10-09-2023 HbA1c (Bld) [Mass fraction] 7.0 % 3.8-5.6 [facility] Comment on above: Normal < 5.7 % Predi abetic 5.7 - 6.4 % Diabetic >or= 6.5 % Please note range changes. Basophil percentageOrdered B y: River Dai on 07-10-2023 Bilirubin [Mass/Vol] 0.60 mg/dL 0.20-1.00 [facility] Comment on above: For patients on eltr ombopag therapy, use of Dimension [place] TBIL is not recommended. Chloride [Moles/Vol] 105 mmol/L 98-107 [facility] Glucose [Mass/Vol] 138 mg/dL 74-106 [facility] Comment on above: Fasting Glucose resu lt greater than or equal to 126 mg/dL suggests DIABETES MELLITUS per A.D.A. criteria. Potassium [Moles/Vol] 4.3 mmol/L 3.5-5.1 [facility] Protein [Mass/Vol] 7.2 g/dL 6.4-8.2 [facility] Sodium [Moles/Vol] 140 mmol/L 136-145 [facility] Laboratory - Chemistry and C hemistry - challengeOrdered By: River Dai on 07-10-2023 ALP [Catalytic activity/Vol] 118 U/L 45-117 [facility] ALT [Catalytic activity/Vol] 35 U/L 13-56 [facility] CO2 [Moles/Vol] 28.0 mmol/L 21.0-32.0 [facility] Globulin (S) [Mass/Vol] 3.4 g/dL 2.2-4.2 [facility] Urea nitrogen/Creatinine [Mass ratio] 14.3 mg/mg 10-20 [facility] No Panel InformationOrdered By: River Dai on 07-10-2023 Estimated GFR (MDRD) Amer 90 mL/min >60 [facility] Comment on above: GFR Calc Estimated GFR (MDRD) Non-Af Amer 74 mL/min >60 [facility] Comment on above: Non- GFR Calc Thyroid Stimulating Hormone (TSH) 0.80 uIU/mL 0.358-3.74 [facility] Serum or plasma albumin orlin urement (mass/volume)Ordered By: River Dai on 07-10-2023 Albumin [Mass/Vol] 3.8 g/dL 3.2-5.0 [facility] Serum or plasma albumin/glob ulin mass ratioOrdered By: River Dai on 07-10-2023 Albumin/Globulin [Mass ratio] 1.1 {ratio} 0.9-2.4 [facility] Serum or plasma calcium orlin urement (mass/volume)Ordered By: River Dai on 07-10-2023 Calcium [Mass/Vol] 8.9 mg/dL 8.5-10.1 [facility] Serum or plasma creatinine m easurement (mass/volume)Ordered By: River Dai on 07-10-2023 Creatinine [Mass/Vol] 0.84 mg/dL 0.55-1.02 [facility] Comment on above: The validity of the calculated GFR & GFRAA in patients over 70 years has not been determined. Clinical correlation is essential. Serum or plasma urea nitroge n measurement (mass/volume)Ordered By: River Dai on 07-10-2023 Urea nitrogen [Mass/Vol] 12 mg/dL 7-18 [facility] Thin prep Papanicolaou smear with manual screeningOrdered By: River Dai on 07-10-2023 Thin prep Papanicolaou smear with manual screening 23 U/L 15-37 [facility] Thin prep Papanicolaou smear with manual screening 7 5-15 [facility] Whole blood hemoglobin A1c/t otal hemoglobin ratio (mass fraction)Ordered By: River Dai on 07-10-2023 HbA1c (Bld) [Mass fraction] 6.9 % 3.8-5.6 [facility] Comment on above: Normal < 5.7 % Predi abetic 5.7 - 6.4 % Diabetic >or= 6.5 % Please note range changes. Basophil percentageOrdered B y: Dr. Dai on 04-15-2023 Bilirubin [Mass/Vol] 0.60 mg/dL 0.20-1.00 [facility] Comment on above: For patients on eltr ombopag therapy, use of Dim[place] TBIL is not recommended. Chloride [Moles/Vol] 108 mmol/L 98-107 [facility] Cholesterol [Mass/Vol] 108 mg/dL <200 [facility] Comment on above: <200 mg/dL Desirable 200-240 mg/dL Borderline >240 mg/dL High Risk Glucose [Mass/Vol] 158 mg/dL 74-106 [facility] Comment on above: Fasting Glucose resu lt greater than or equal to 126 mg/dL suggests DIABETES MELLITUS per A.D.A. criteria. Potassium [Moles/Vol] 4.2 mmol/L 3.5-5.1 [facility] Protein [Mass/Vol] 7.3 g/dL 6.4-8.2 [facility] Sodium [Moles/Vol] 141 mmol/L 136-145 [facility] Triglyceride [Mass/Vol] 171 mg/dL <199 [facility] Comment on above: The drugs N-Acetylcy steine and Metamizole may falsely depress this assay.Serum Triglycerides Reference Interval Normal <150 mg/dL Borderline high 150 - 199 mg/dL High 200 - 499 mg/dL Very High > or = 500 mg/dL Laboratory - Chemistry and C hemistry - challengeOrdered By: Dr. Dai on 04-15-2023 ALP [Catalytic activity/Vol] 141 U/L 45-117 [facility] ALT [Catalytic activity/Vol] 32 U/L 13-56 [facility] CO2 [Moles/Vol] 26.0 mmol/L 21.0-32.0 [facility] Globulin (S) [Mass/Vol] 3.5 g/dL 2.2-4.2 [facility] Urea nitrogen/Creatinine [Mass ratio] 21.7 mg/mg 10-20 [facility] No Panel InformationOrdered By: Dr. Dai on 04-15-2023 Estimated GFR (MDRD) Amer 104 mL/min >60 [facility] Comment on above: GFR Calc Estimated GFR (MDRD) Non-Af Amer 86 mL/min >60 [facility] Comment on above: Non- GFR Calc Urine Microalbumin/Creatinine Ratio 13.9 mg/g CRE <30 [facility] Serum or plasma albumin orlin urement (mass/volume)Ordered By: Dr. Dai on 04-15-2023 Albumin [Mass/Vol] 3.8 g/dL 3.2-5.0 [facility] Serum or plasma albumin/glob ulin mass ratioOrdered By: Dr. Dai on 04-15-2023 Albumin/Globulin [Mass ratio] 1.1 {ratio} 0.9-2.4 [facility] Serum or plasma calcium olrin urement (mass/volume)Ordered By: Dr. Dai on 04-15-2023 Calcium [Mass/Vol] 9.1 mg/dL 8.5-10.1 [facility] Serum or plasma cholesterol in HDL measurement (mass/volume)Ordered By: Dr. Dai on 04-15-2023 Cholesterol in HDL [Mass/Vol] 44 mg/dL >40 [facility] Comment on above: The drugs N-Acetylcy steine and Metamizole may falsely depress this assay. Reference Range HDL <40 mg/dL Low HDL Cholesterol HDL >or= 60 mg/dL High HDL Cholesterol Serum or plasma cholesterol in VLDL measurement (mass/volume)Ordered By: Dr. Dai on 04-15-2023 Cholesterol in VLDL [Mass/Vol] 34 mg/dL 5-40 [facility] Serum or plasma creatinine m easurement (mass/volume)Ordered By: Dr. Dai on 04-15-2023 Creatinine [Mass/Vol] 0.74 mg/dL 0.55-1.02 [facility] Comment on above: The validity of the calculated GFR & GFRAA in patients over 70 years has not been determined. Clinical correlation is essential. Serum or plasma low density lipoprotein (LDL) cholesterol measurement (mass/volume)Ordered By: Dr. Dai on 04-15-2023 Cholesterol in LDL [Mass/Vol] 30 mg/dL 0-130 [facility] Serum or plasma urea nitroge n measurement (mass/volume)Ordered By: Dr. Dai on 04-15-2023 Urea nitrogen [Mass/Vol] 16 mg/dL 7-18 [facility] Thin prep Papanicolaou smear with manual screeningOrdered By: Dr. Dai on 04-15-2023 Thin prep Papanicolaou smear with manual screening 19 U/L 15-37 [facility] Thin prep Papanicolaou smear with manual screening 7 5-15 [facility] Thin prep Papanicolaou smear with manual screening 29.4 mg/L NO RANGE EST. [facility] Urine creatinine measurement (mass/volume)Ordered By: Dr. Dai on 04-15-2023 Creatinine (U) [Mass/Vol] 212.00 mg/dL NO RANGE EST. [facility] Whole blood hemoglobin A1c/t otal hemoglobin ratio (mass fraction)Ordered By: Dr. Dai on 04-15-2023 HbA1c (Bld) [Mass fraction] 7.0 % 3.8-5.6 [facility] Comment on above: Normal < 5.7 % Predi abetic 5.7 - 6.4 % Diabetic >or= 6.5 % Please note range changes. Basophil percentageOrdered B y: Dr. Dai on 2023 Bilirubin [Mass/Vol] 0.70 mg/dL 0.20-1.00 [facility] Comment on above: For patients on eltr ombopag therapy, use of Dimension [place] TBIL is not recommended. Chloride [Moles/Vol] 106 mmol/L 98-107 [facility] Cholesterol [Mass/Vol] 113 mg/dL <200 [facility] Comment on above: <200 mg/dL Desirable 200-240 mg/dL Borderline >240 mg/dL High Risk Glucose [Mass/Vol] 143 mg/dL 74-106 [facility] Comment on above: Fasting Glucose resu lt greater than or equal to 126 mg/dL suggests DIABETES MELLITUS per A.D.A. criteria. Potassium [Moles/Vol] 3.6 mmol/L 3.5-5.1 [facility] Protein [Mass/Vol] 6.9 g/dL 6.4-8.2 [facility] Sodium [Moles/Vol] 141 mmol/L 136-145 [facility] Triglyceride [Mass/Vol] 206 mg/dL <199 [facility] Comment on above: The drugs N-Acetylcy steine and Metamizole may falsely depress this assay.Serum Triglycerides Reference Interval Normal <150 mg/dL Borderline high 150 - 199 mg/dL High 200 - 499 mg/dL Very High > or = 500 mg/dL Laboratory - Chemistry and C hemistry - challengeOrdered By: Dr. Dai on 2023 ALP [Catalytic activity/Vol] 129 U/L 45-117 [facility] ALT [Catalytic activity/Vol] 38 U/L 13-56 [facility] CO2 [Moles/Vol] 27.0 mmol/L 21.0-32.0 [facility] Globulin (S) [Mass/Vol] 3.2 g/dL 2.2-4.2 [facility] Urea nitrogen/Creatinine [Mass ratio] 20.2 mg/mg 10-20 [facility] No Panel InformationOrdered By: Dr. Dai on 2023 Estimated GFR (MDRD) Amer 89 mL/min >60 [facility] Comment on above: GFR Calc Estimated GFR (MDRD) Non-Af Amer 74 mL/min >60 [facility] Comment on above: Non- GFR Calc Serum or plasma albumin orlin urement (mass/volume)Ordered By: Dr. Dai on 2023 Albumin [Mass/Vol] 3.7 g/dL 3.2-5.0 [facility] Serum or plasma albumin/glob ulin mass ratioOrdered By: Dr. Dai on 2023 Albumin/Globulin [Mass ratio] 1.2 {ratio} 0.9-2.4 [facility] Serum or plasma calcium orlin urement (mass/volume)Ordered By: Dr. Dai on 2023 Calcium [Mass/Vol] 9.2 mg/dL 8.5-10.1 [facility] Serum or plasma cholesterol in HDL measurement (mass/volume)Ordered By: Dr. Dai on 2023 Cholesterol in HDL [Mass/Vol] 41 mg/dL >40 [facility] Comment on above: The drugs N-Acetylcy steine and Metamizole may falsely depress this assay. Reference Range HDL <40 mg/dL Low HDL Cholesterol HDL >or= 60 mg/dL High HDL Cholesterol Serum or plasma cholesterol in VLDL measurement (mass/volume)Ordered By: Dr. Dai on 2023 Cholesterol in VLDL [Mass/Vol] 41 mg/dL 5-40 [facility] Serum or plasma creatinine m easurement (mass/volume)Ordered By: Dr. Dai on 2023 Creatinine [Mass/Vol] 0.84 mg/dL 0.55-1.02 [facility] Comment on above: The validity of the calculated GFR & GFRAA in patients over 70 years has not been determined. Clinical correlation is essential. Serum or plasma low density lipoprotein (LDL) cholesterol measurement (mass/volume)Ordered By: Dr. Dai on 2023 Cholesterol in LDL [Mass/Vol] 31 mg/dL 0-130 [facility] Serum or plasma urea nitroge n measurement (mass/volume)Ordered By: Dr. Dai on 2023 Urea nitrogen [Mass/Vol] 17 mg/dL 7-18 [facility] Thin prep Papanicolaou smear with manual screeningOrdered By: Dr. Dai on 2023 Thin prep Papanicolaou smear with manual screening 22 U/L 15-37 [facility] Thin prep Papanicolaou smear with manual screening 8 5-15 [facility] Whole blood hemoglobin A1c/t otal hemoglobin ratio (mass fraction)Ordered By: Dr. Dai on 2023 HbA1c (Bld) [Mass fraction] 6.8 % 3.8-5.6 [facility] Comment on above: Normal < 5.7 % Predi abetic 5.7 - 6.4 % Diabetic >or= 6.5 % Please note range changes. Glucose Glucometer (BldC) [M ass/Vol]Ordered By: Dr. Brooks on 10-09-2022 Glucose [Mass/Vol] 122 mg/dL 74-106 [facility] Comment on above: MANAGEMENT OF PATIEN T CARE PER NURSING PROTOCOL Absolute lymphocyte countOrd ered By: Dr. Dai on 09-29-2022 Lymphocytes Auto (Unsp spec) [#/Vol] 1.70 10*3/uL 0.83-4.51 [facility] Basophil percentageOrdered B y: Dr. Dai on 09-29-2022 Basophils/100 WBC (Bld) 0.3 % 0-1 [facility] Bilirubin [Mass/Vol] 0.90 mg/dL 0.20-1.00 [facility] Comment on above: For patients on eltr ombopag therapy, use of Dimension [place] TBIL is not recommended. Chloride [Moles/Vol] 103 mmol/L 98-107 [facility] Eosinophils/100 WBC (Bld) 1.9 % 0-5 [facility] Glucose [Mass/Vol] 99 mg/dL 74-106 [facility] Neutrophils (Bld) [#/Vol] 3.4 10*3/uL 2.0-7.7 [facility] Neutrophils/100 WBC (Bld) 58.8 % 47-70 [facility] Potassium [Moles/Vol] 4.0 mmol/L 3.5-5.1 [facility] Protein [Mass/Vol] 6.9 g/dL 6.4-8.2 [facility] Sodium [Moles/Vol] 139 mmol/L 136-145 [facility] WBC (Bld) [#/Vol] 5.7 10*3/uL 4.4-11.0 [facility] Blood erythrocytes count (nu mber/volume)Ordered By: Dr. Dai on 09-29-2022 RBC (Bld) [#/Vol] 4.79 10*6/uL 4.2-5.4 [facility] Blood hemoglobin measurement (mass/volume)Ordered By: Dr. Dai on 09-29-2022 Hemoglobin (Bld) [Mass/Vol] 13.2 g/dL 12.0-15.0 [facility] Blood lymphocytes/100 leukoc ytesOrdered By: Dr. Dai on 09-29-2022 Lymphocytes/100 WBC (Bld) 29.7 % 19-41 [facility] Blood monocytes/100 leukocyt esOrdered By: Dr. Dai on 09-29-2022 Monocytes/100 WBC (Bld) 9.1 % 0-10 [facility] Blood platelet mean volumeOr dered By: Dr. Dai on 09-29-2022 Platelet mean volume (Bld) [Entitic vol] 9.8 fL 6.2-12.0 [facility] Determination of erythrocyte mean corpuscular volume (MCV)Ordered By: Dr. Dai on 09-29-2022 MCV (RBC) [Entitic vol] 85.6 fL 81-99 [facility] Hematocrit Auto (Bld) [Volum e fraction]Ordered By: Dr. Dai on 09-29-2022 Hematocrit (Bld) [Volume fraction] 41.0 % 37-47 [facility] Laboratory - Chemistry and C hemistry - challengeOrdered By: Dr. Dai on 09-29-2022 ALP [Catalytic activity/Vol] 117 U/L 45-117 [facility] ALT [Catalytic activity/Vol] 37 U/L 13-56 [facility] CO2 [Moles/Vol] 29.0 mmol/L 21.0-32.0 [facility] Globulin (S) [Mass/Vol] 3.0 g/dL 2.2-4.2 [facility] Urea nitrogen/Creatinine [Mass ratio] 18.1 mg/mg 10-20 [facility] - Hematology and Cell countsOrdered By: Dr. Dai on 09-29-2022 Erythrocyte distribution width (RBC) [Entitic vol] 44.1 fL 35.1-43.9 [facility] Erythrocyte distribution width (RBC) [Ratio] 14.3 % 11.6-14.6 [facility] Immature granulocytes/100 WBC (Bld) 0.200 % 0.0-0.9 [facility] Comment on above: IG% - Immature Granu locytes (promyelocytes, myelocytes and metamyelocytes) > 1% indicates that a LEFT SHIFT is Present. MCH (RBC) [Entitic mass] 27.6 pg 27.0-32.0 [facility] Nucleated RBC/100 WBC (Bld) [Ratio] 0 % 0-5 [facility] MCHC Auto (RBC) [Mass/Vol]Or dered By: Dr. Dai on 09-29-2022 MCHC (RBC) [Mass/Vol] 32.2 g/dL 32-36 [facility] No Panel InformationOrdered By: Dr. Dai on 09-29-2022 Estimated GFR (MDRD) Amer 108 mL/min >60 [facility] Comment on above: GFR Calc Estimated GFR (MDRD) Non-Af Amer 89 mL/min >60 [facility] Comment on above: Non- GFR Calc Platelets bldOrdered By: Dr. Dai on 09-29-2022 Platelets (Bld) [#/Vol] 279 10*3/uL 150-450 [facility] Serum or plasma albumin orlin urement (mass/volume)Ordered By: Dr. Dai on 09-29-2022 Albumin [Mass/Vol] 3.9 g/dL 3.2-5.0 [facility] Serum or plasma albumin/glob ulin mass ratioOrdered By: Dr. Dai on 09-29-2022 Albumin/Globulin [Mass ratio] 1.3 {ratio} 0.9-2.4 [facility] Serum or plasma calcium orlin urement (mass/volume)Ordered By: Dr. Dai on 09-29-2022 Calcium [Mass/Vol] 9.1 mg/dL 8.5-10.1 [facility] Serum or plasma creatinine m easurement (mass/volume)Ordered By: Dr. Dai on 09-29-2022 Creatinine [Mass/Vol] 0.72 mg/dL 0.55-1.02 [facility] Comment on above: The validity of the calculated GFR & GFRAA in patients over 70 years has not been determined. Clinical correlation is essential. Serum or plasma urea nitroge n measurement (mass/volume)Ordered By: Dr. Dai on 09-29-2022 Urea nitrogen [Mass/Vol] 13 mg/dL 05-25 [facility] Thin prep Papanicolaou smear with manual screeningOrdered By: Dr. Dai on 09-29-2022 Thin prep Papanicolaou smear with manual screening 26 U/L 15 [facility] Thin prep Papanicolaou smear with manual screening 7 5-15 [facility] Whole blood hemoglobin A1c/t otal hemoglobin ratio (mass fraction)Ordered By: Dr. Dai on 09-29-2022 HbA1c (Bld) [Mass fraction] 6.8 % 3.8-5.6 [facility] Comment on above: Normal < 5.7 % Predi abetic 5.7 - 6.4 % Diabetic >or= 6.5 % Please note range changes. PROTEIN ELECTROPHORESIS , SE RUM [CCL]on 08-18-2022 Albumin [Mass/Vol] 3.65 g/dL Normal 3.37-4.23 [facility] Comment on above: Performed By: #### [id number] #### [facility],[address] [place] [address] Alpha 1 Globulin 0.20 g/dL Normal 0.18-0.31 [facility] Comment on above: Performed By: #### [id number] #### [facility],[address] [place] [id number] Alpha 2 Globulin 0.68 g/dL Normal 0.52-0.97 [facility] Comment on above: Performed By: #### [id number] #### [facility],[address] [place], [place] [id number] Beta Globulin 0.94 g/dL Normal 0.84-1.36 [facility] Comment on above: Performed By: #### [id number] #### [facility],[address] [place], [place] [id number] Gamma Globulin 0.74 g/dL Normal 0.70-1.44 [facility] Comment on above: Performed By: #### [id number] #### [facility],[address] [place] [address] M Protein Location See Below Normal [facility] Comment on above: Result Comment: Not Applicable. Performed By: #### [id number] #### [facility],[address] [place], [place] [id number] M-Protein Concentration 0.00 g/dL Normal <=0.[address] [facility] Comment on above: Performed By: #### 2 [address] #### [facility],[address] [place], [place] [id number] Protein [Mass/Vol] 6.2 g/dL Low 6.3-8.0 [facility] Comment on above: Result Comment: [facility] [address] [place] [address] Josafat Jose III, M.D. [id number] Performed By: #### 2 81947 #### [facility],[address] [place], [place] [id number] SPE Staff Review Reviewed by Wes Sumner MD, Ph.D ([id number]) Normal [facility] Comment on above: Performed By: #### 2 94044 #### [facility],[address] [place] [address] PROTEIN ELECTROPHORESIS UR W / PHIL [CCL]on 08-18-2022 Albumin 24.61 % Normal [facility] Comment on above: Performed By: #### 2 23034 #### [facility],[address] [place] [address] Alpha 1 Globulin 4.29 % Normal [facility] Comment on above: Performed By: #### 2 87786 #### [facility],[address] [place] [address] Alpha 2 Globulin 24.78 % Normal [facility] Comment on above: Performed By: #### 2 02917 #### [facility],[address] [place] [address] Beta Globulin 21.88 % Normal [facility] Comment on above: Performed By: #### 2 74241 #### [facility],[address] [place] [address] Comment Monoclonal Protein analysis (immunofixation) is not indicated. Normal [facility] Comment on above: Result Comment: [facility] [address] [place] [address] Josafat Jose III, M.D. [id number] Performed By: #### 2 98535 #### [facility],[address] [place] [address] Gamma Globulin 24.44 % Normal [facility] Comment on above: Performed By: #### 2 07938 #### [facility],[address] [place] [address] Interpretation No definitive M protein is identified on protein electrophoresis. Normal No definitive M protein i [facility] Comment on above: Performed By: #### 2 12378 #### [facility],[address] [place], [place] [id number] Performed By: #### 2 65791 #### [facility],[address] [place] [address]288 Protein (U) [Mass/Vol] 8 mg/dL Normal 0-20 [facility] Comment on above: Performed By: #### 2 43887 #### [address] [address] Staff Review Reviewed by Dr. Mark Harding MD [facility] Comment on above: Performed By: #### 2 17604 #### [address] [address] VITAMIN D, 1,25 - DIHYDROXY [CCL]on 07-27-2022 Vit D,1,25 Dihydroxy 35.4 pg/mL Normal 19.9-79.3 [facility] Comment on above: Result Comment: [facility] [address] [place] [address] Josafat Jose III, M.D. [id number] Performed By: #### 2 95102 #### [address] [address] MAGNESIUMon 07-25-2022 Magnesium [Mass/Vol] 1.9 mg/dL Normal 1.8 - 2.4 [facility] Comment on above: Performed By: #### 2 89698 #### [address] [address] PTH, INTACT [CCL]on 07-25-20 22 PTH, Intact 43 pg/mL Normal 15-65 [facility] Comment on above: Result Comment: [facility] [address] [place] [address] Josafat Jose III, M.D. [id number] Performed By: #### 2 04955 #### [address] [address] VITAMIN D, 25 HYDROXYon 07-09 VitD 50.20 ng/mL Normal 30.00 - 100 [facility] Comment on above: Result Comment: 25-O HD3 indicates both endogenous production and supplementation. 25-OHD2 is an indicator of exogenous sources, such as diet or supplementation. Therapy is based on measurement of Total 25-OHD, with levels <20 ng/mL indicative of Vitamin D deficiency, while levels between 20 ng/mL and 30 ng/mL suggest insufficiency. Optimal levels are >=30ng/mL. Vitamin D, 25-OH D3 Not Established Vitamin D, 25-OH D2 Not Established Performed By: #### 2 85139 #### [address] [address] ALKALINE PHOSPHATASE ISOENZ [CCL]on 07-22-2022 ALK PHOS BONE % 58.6 % Normal 10.7-68.3 [facility] Comment on above: Performed By: #### 2 95502 #### [address] [address] ALK PHOS LIVER % 31.4 % Normal 26.0-86.2 [facility] Comment on above: Performed By: #### 2 79384 #### [facility],[address] [place] [address] ALP [Catalytic activity/Vol] 136 U/L High 34-123 [facility] Comment on above: Result Comment: [facility] [address] [place] [address] Josafat Jose III, M.D. [id number] Performed By: #### 2 52276 #### [address] [address] BONE FRACTION 79.7 U/L High 12.9-52.6 [facility] Comment on above: Performed By: #### 2 68325 #### [address] [address] INTESTINE FRACTION 13.6 U/L Normal 0.0-16.3 [facility] Comment on above: Result Comment: Caitlin ents who are blood group B or O secretors, or those who have consumed a fatty meal a few hours before the blood collection, may have elevated alkaline phosphatase intestinal fraction. Clinical correlation is required. Performed By: #### 2 38450 #### [facility],[address] [place] [address] LIVER FRACTION 42.7 U/L Normal 16.0-69.3 [facility] Comment on above: Performed By: #### 2 09386 #### [facility],[address] [place] [address] Neutrophils/100 WBC (Bld) 10.0 % Normal 0.0-24.2 [facility] Comment on above: Performed By: #### 2 67435 #### [facility],[address] [place] [address] HGB A1C [CCL]on 07-07-2022 HbA1c (Bld) [Mass fraction] 7.0 % High 4.3-5.6 [facility] Comment on above: Result Comment: Amer [place] Diabetes Association guidelines indicate that patients with HgbA1c in the range 5.7-6.4% are at increased risk for development of diabetes, and intervention by lifestyle modification may be beneficial. HgbA1c greater or equal to 6.5% is considered diagnostic of diabetes. Performed By: #### 2 06325 #### [facility],[address] [place] [address] 25008 Hemoglobin A0 154 mg/dL Normal [facility] Comment on above: Result Comment: eAG: (Estimated average glucose) is a calculated value from HgbA1c and is ambulatory services representative of the average blood glucose level in the last 2-3 month period. [facility] [employer] [address] [place] [address] Josafat Jose III, M.D. [id number] Performed By: #### 2 44595 #### [facility],[address] [place] [address] MICROALBUMIN RANDOM URINE W/ CREATININEon 07-07-2022 Albumin Urine Random <12.0 Normal [facility] Comment on above: Performed By: #### 2 11663 #### [place] [address] Albumin/Creat Ratio <12 Normal <30 [facility] Comment on above: Result Comment: Adul t Male and Female Nephrotic Criteria: <30 mg/g is considered normal to mildly increased 30-300 mg/g is considered moderately increased >300 mg/g is considered severely increased KDIGO. (2013). KDIGO 2012 Clinical Practice Guideline for the Evaluation and Management of Chronic Kidney Disease. Official Journal of the International Society of Nephrology, 3(1), 1-150. [place] [address] Josafat Jose III, M.D. [id number] Performed By: #### 2 92044 #### [place] [address] Creatinine,Urine,Ran 103.9 mg/dL Normal 20.0-300.0 [facility] Comment on above: Performed By: #### 2 98031 #### [place] [address] CMP with eGFRon 07-04-2022 AGE 57 years Normal [facility] Comment on above: Performed By: #### 2 83924 #### [place] [address] Albumin [Mass/Vol] 3.8 g/dL Normal 3.4 - 5.0 [facility] Comment on above: Performed By: #### 2 96576 #### [place] [address] Albumin/Globulin [Mass ratio] 1.2 {ratio} Normal 0.9 - 1.6 [facility] Comment on above: Performed By: #### 2 49923 #### [place] [address] ALK PHOS 125 U/L High 46 - 116 [facility] Comment on above: Performed By: #### 2 30449 #### [facility],[address] [place], [place] [id number] ALT [Catalytic activity/Vol] 50 U/L Normal 14 - 59 [facility] Comment on above: Performed By: #### 2 75519 #### [facility],[address] [place] [address] Anion gap [Moles/Vol] 12 mmol/L Normal 10 - 20 [facility] Comment on above: Performed By: #### 2 23585 #### [facility],[address] [place] [address] AST [Catalytic activity/Vol] 27 U/L Normal 13 - 39 [facility] Comment on above: Performed By: #### 2 47976 #### [facility],[address] [place] [address] B/C RATIO 15 ratio Normal 0 - 30 [facility] Comment on above: Performed By: #### 2 10956 #### [facility],[address] [place] [address] Bilirubin [Mass/Vol] 0.7 mg/dL Normal 0.2 - 1.0 [facility] Comment on above: Performed By: #### 2 43147 #### [facility],[address] [place] [address] Calcium [Mass/Vol] 8.9 mg/dL Normal 8.5 - 10.1 [facility] Comment on above: Performed By: #### 2 57437 #### [facility],[address] [place] [address] Chloride [Moles/Vol] 106 mmol/L Normal 98 - 107 [facility] Comment on above: Performed By: #### 2 18319 #### [facility],[address] [place] [address] CMP with eGFR Normal [facility] Comment on above: Result Comment: COMP REHENSIVE METABOLIC PANEL Performed By: #### 2 67574 #### [facility],[address] [place] [address] CO2 [Moles/Vol] 29.6 mmol/L Normal 21.0 - 32.0 [facility] Comment on above: Performed By: #### 2 61819 #### [facility],[address] [place], [place] [address] Creatinine [Mass/Vol] 0.74 mg/dL Normal 0.55 - 1.02 [facility] Comment on above: Performed By: #### 2 64220 #### [facility],[address] [place], [place] [address] GFR/1.73 sq M.predicted among non-blacks MDRD (S/P/Bld) [Vol rate/Area] mL/min/{1.73_m2} Normal 60 - 999 [facility] Comment on above: Performed By: #### 2 73425 #### [facility],[address] [place] [address] Result Comment: ACCO RDING TO THE NATIONAL KIDNEY DISEASE EDUCATION PROGRAM(NKDE), A NORMAL eGFR IS A VALUE GREATER THAN OR EQUAL TO 60 ML/MIN/1.73 SQ METERS. CHRONIC KIDNEY DISEASE: <60mL/MIN/1.73 SQ METERS KIDNEY FAILURE: <15mL/MIN/1.73 SQ METERS THIS TEST SHOULD ONLY BE USED FOR PATIENTS 18 YEARS OF AGE AND OLDER. Globulin (S) [Mass/Vol] 3.2 g/dL Normal 1.5 - 3.[address] [facility] Comment on above: Performed By: #### 2 64080 #### [facility],[address] [place] [address] Glucose [Mass/Vol] 120 mg/dL High 74 - 106 [facility] Comment on above: Performed By: #### 2 02627 #### [facility],[address] [place] [address] Potassium [Moles/Vol] 4.1 mmol/L Normal 3.5 - 5.1 [facility] Comment on above: Performed By: #### 2 11396 #### [facility],[address] [place] [address] Protein [Mass/Vol] 7.0 g/dL Normal 6.4 - 8.2 [facility] Comment on above: Performed By: #### 2 57171 #### [facility],[address] [place] [address] Sodium [Moles/Vol] 143 mmol/L Normal 136 - 145 [facility] Comment on above: Performed By: #### 2 35830 #### [facility],[address] [place] [address] Urea nitrogen [Mass/Vol] 11 mg/dL Normal 7 - 18 [facility] Comment on above: Performed By: #### 2 07111 #### [facility],[address] [place] [address] LIPID PROFILEon 07-04-2022 Cholesterol [Mass/Vol] 118 mg/dL Normal 0 - 240 [facility] Comment on above: Performed By: #### 2 11078 #### [facility],[address] [place] [address] Cholesterol in HDL [Mass/Vol] 43 mg/dL Normal 40 - 60 [facility] Comment on above: Performed By: #### 2 42176 #### [facility],[address] [place] [address] Cholesterol in LDL [Mass/Vol] 40 mg/dL Normal 0 - 129 [facility] Comment on above: Performed By: #### 2 01966 #### [facility],[address] [place] [address] Cholesterol.total/Armonita sterol in HDL [Mass ratio] 2.7 {ratio} Normal 0.0 - 5.0 [facility] Comment on above: Performed By: #### 2 86409 #### [facility],[address] [place] [address]454 Lipid 1996 panel Normal [facility] Comment on above: Result Comment: LIPI D PROFILE Performed By: #### 2 30742 #### [facility],[address] [place] [address] Triglyceride [Mass/Vol] 175 mg/dL High 0 - 150 [facility] Comment on above: Performed By: #### 2 95890 #### [facility],[address] [place] [address]408 TSHon 07-04-2022 TSH Qn 0.70 m[IU]/L Normal 0.35 - 3.74 [facility] Comment on above: Performed By: #### 2 04701 #### [facility],[address] [place] [address] CMP with eGFR [CCL]on 2021 Albumin [Mass/Vol] 4.3 g/dL Normal 3.9-4.9 [facility] Comment on above: Performed By: #### 2 36884 #### [facility],[address] [place] [address]108 ALP [Catalytic activity/Vol] 97 U/L Normal 34-123 [facility] Comment on above: Performed By: #### 2 83330 #### [facility],[address] [place] [address]266 ALT [Catalytic activity/Vol] 29 U/L Normal 7-38 [facility] Comment on above: Performed By: #### 2 72382 #### [facility],[address] [place] [address] Anion gap [Moles/Vol] 10 mmol/L Normal 9-18 [facility] Comment on above: Performed By: #### 2 17504 #### [facility],[address] [place] [address]56 AST [Catalytic activity/Vol] 24 U/L Normal 13-35 [facility] Comment on above: Performed By: #### 2 83032 #### [facility],[address] [place] [address] Bilirubin [Mass/Vol] 0.3 mg/dL Normal 0.2-1.3 [facility] Comment on above: Performed By: #### 2 13436 #### [facility],[address] [place] [address] Calcium [Mass/Vol] 9.3 mg/dL Normal 8.5-10.2 [facility] Comment on above: Performed By: #### 2 24574 #### [facility],[address] [place] [address] Chloride [Moles/Vol] 106 mmol/L High 97-105 [facility] Comment on above: Performed By: #### 2 69045 #### [facility],[address] [place] [address]76 CO2 [Moles/Vol] 25 mmol/L Normal 22-30 [facility] Comment on above: Performed By: #### 2 84831 #### [facility],[address] [place] [address] Creatinine [Mass/Vol] 0.70 mg/dL Normal 0.58-0.96 [facility] Comment on above: Performed By: #### 2 56241 #### [facility],[address] [place] [address] 269[address] Estimated GlomerularFiltration Rate 101 mL/min/1.m??? Normal >=60 [facility] Comment on above: Result Comment: Aleshia mated Glomerular Filtration Rate (eGFR) is calculated using the 2020 CKD-EPI creatinine equation. This equation utilizes serum creatinine, sex, and age as parameters. The creatinine assay has traceable calibration to isotope dilution-mass spectrometry. Refer to KDIGO guidelines for clinical interpretation. In patients with unstable renal function, e.g. those with acute kidney injury, the eGFR may not accurately reflect actual GFR. [facility] [employer] [address] [place] [address] Josafat Jose III, M.D. [id number] Performed By: #### 2 21013 #### [address] [address] Glucose [Mass/Vol] 116 mg/dL High 74-99 [facility] Comment on above: Result Comment: The [place] Diabetes Association (ADA) provides guidance for cutoff values for fasting glucose and random glucose. The ADA defines fasting as no caloric intake for at least 8 hours. Fasting plasma glucose results between 100 to 125 mg/dL indicate increased risk for diabetes (prediabetes). Fasting plasma glucose results greater than or equal to 126 mg/dL meet the criteria for diagnosis of diabetes. In the absence of unequivocal hyperglycemia, results should be confirmed by repeat testing. In a patient with classic symptoms of hyperglycemia or hyperglycemic crisis, random plasma glucose results greater than or equal to 200 mg/dL meet the criteria for diagnosis of diabetes. Reference: Standards of Medical Care in Diabetes 2016, [place] Diabetes Association. Diabetes Care. 2016.39(Suppl 1). Performed By: #### 2 59943 #### [address] [address] Potassium [Moles/Vol] 4.6 mmol/L Normal 3.7-5.1 [facility] Comment on above: Performed By: #### 2 53294 #### [address] [address] Protein [Mass/Vol] 6.7 g/dL Normal 6.3-8.0 [facility] Comment on above: Performed By: #### 2 06306 #### [address] [address] Sodium [Moles/Vol] 141 mmol/L Normal 136-144 [facility] Comment on above: Performed By: #### 2 19765 #### [address] [address] Urea nitrogen [Mass/Vol] 14 mg/dL Normal 7-21 [facility] Comment on above: Performed By: #### 2 20610 #### [address] [address] HGB A1C [CCL]on 04-04-2022 HbA1c (Bld) [Mass fraction] 6.2 % High 4.3-5.6 [facility] Comment on above: Result Comment: Amer ican Diabetes Association guidelines indicate that patients with HgbA1c in the range 5.7-6.4% are at increased risk for development of diabetes, and intervention by lifestyle modification may be beneficial. HgbA1c greater or equal to 6.5% is considered diagnostic of diabetes. Performed By: #### 2 96036 #### [address] [address] Hemoglobin A0 131 mg/dL Normal [facility] Comment on above: Result Comment: eAG: (Estimated average glucose) is a calculated value from HgbA1c and is ambulatory services representative of the average blood glucose level in the last 2-3 month period. [facility] [employer] [address] [place] [address] Josafat Jose III, M.D. [id number] Performed By: #### 2 32646 #### [address] [address] HGB A1C [CCL]on 01-11-2022 HbA1c (Bld) [Mass fraction] 6.3 % High 4.3-5.6 [facility] Comment on above: Result Comment: Amer [place] Diabetes Association guidelines indicate that patients with HgbA1c in the range 5.7-6.4% are at increased risk for development of diabetes, and intervention by lifestyle modification may be beneficial. HgbA1c greater or equal to 6.5% is considered diagnostic of diabetes. Performed By: #### 2 32544 #### [address] [address] Hemoglobin A0 134 mg/dL Normal [facility] Comment on above: Result Comment: eAG: (Estimated average glucose) is a calculated value from HgbA1c and is ambulatory services representative of the average blood glucose level in the last 2-3 month period. [facility] [address] [address] Josafat Jose III, M.D. [id number] Performed By: #### 2 35274 #### [facility],[address] [place] [address] CMP with eGFRon 01-10-2022 AGE 56 years Normal [facility] Comment on above: Performed By: #### 2 99955 #### [facility],[address] [place] [address]348 Albumin [Mass/Vol] 3.8 g/dL Normal 3.4 - 5.0 [facility] Comment on above: Performed By: #### 2 59268 #### [facility],[address] [place] [address]198 Albumin/Globulin [Mass ratio] 1.3 {ratio} Normal 0.9 - 1.6 [facility] Comment on above: Performed By: #### 2 84619 #### [facility],[address] [place] [address]86 ALK PHOS 97 U/L Normal 46 - 116 [facility] Comment on above: Performed By: #### 2 61827 #### [facility],[address] [place] [address] 40127 ALT [Catalytic activity/Vol] 64 U/L High 14 - 59 [facility] Comment on above: Performed By: #### 2 27721 #### [facility],[address] [place] [address] 28266 Anion gap [Moles/Vol] 13 mmol/L Normal 10 - 20 [facility] Comment on above: Performed By: #### 2 09377 #### [facility],[address] [place] [address] 80531 AST [Catalytic activity/Vol] 26 U/L Normal 13 - 39 [facility] Comment on above: Performed By: #### 2 91349 #### [facility],[address] [place] [address]12 B/C RATIO 20 ratio Normal 0 - 30 [facility] Comment on above: Performed By: #### 2 41289 #### [facility],[address] [place] [address] 62688 Bilirubin [Mass/Vol] 0.5 mg/dL Normal 0.2 - 1.0 [facility] Comment on above: Performed By: #### 2 49773 #### [facility],[address] [place] [address] 73436 Calcium [Mass/Vol] 8.6 mg/dL Normal 8.5 - 10.1 [facility] Comment on above: Performed By: #### 2 63140 #### [facility],[address] [place] [address] 97567 Chloride [Moles/Vol] 105 mmol/L Normal 98 - 107 [facility] Comment on above: Performed By: #### 2 63624 #### [facility],[address] [place] [address] 15081 CMP with eGFR Normal [facility] Comment on above: Result Comment: COMP REHENSIVE METABOLIC PANEL Performed By: #### 2 93923 #### [facility],[address] [place] [address] 13640 CO2 [Moles/Vol] 27.3 mmol/L Normal 21.0 - 32.0 [facility] Comment on above: Performed By: #### 2 48834 #### [facility],[address] [place] [address] 10794 Creatinine [Mass/Vol] 0.69 mg/dL Normal 0.55 - 1.02 [facility] Comment on above: Performed By: #### 2 71390 #### [facility],[address] [place] [address] 57022 GFR/1.73 sq M.predicted among non-blacks MDRD (S/P/Bld) [Vol rate/Area] mL/min/{1.73_m2} Normal 60 - 999 [facility] Comment on above: Performed By: #### 2 14056 #### [facility],[address] [place] [address] 32048 Result Comment: ACCO RDING TO THE NATIONAL KIDNEY DISEASE EDUCATION PROGRAM(NKDE), A NORMAL eGFR IS A VALUE GREATER THAN OR EQUAL TO 60 ML/MIN/1.73 SQ METERS. CHRONIC KIDNEY DISEASE: <60mL/MIN/1.73 SQ METERS KIDNEY FAILURE: <15mL/MIN/1.73 SQ METERS THIS TEST SHOULD ONLY BE USED FOR PATIENTS 18 YEARS OF AGE AND OLDER. Globulin (S) [Mass/Vol] 3.0 g/dL Normal 1.5 - 3.[address] [facility] Comment on above: Performed By: #### 2 77407 #### [facility],[address] [place] [address] 18411 Glucose [Mass/Vol] 117 mg/dL High 74 - 106 [facility] Comment on above: Performed By: #### 2 01585 #### [facility],[address] [place] [address] 20839 Potassium [Moles/Vol] 4.5 mmol/L Normal 3.5 - 5.1 [facility] Comment on above: Performed By: #### 2 58536 #### [facility],[address] [place] [address] 76955 Protein [Mass/Vol] 6.8 g/dL Normal 6.4 - 8.2 [facility] Comment on above: Performed By: #### 2 75952 #### [facility],[address] [place] [address] 65752 Sodium [Moles/Vol] 141 mmol/L Normal 136 - 145 [facility] Comment on above: Performed By: #### 2 23453 #### [facility],[address] [place] [address] 19430 Urea nitrogen [Mass/Vol] 14 mg/dL Normal 7 - 18 [facility] Comment on above: Performed By: #### 2 79847 #### [facility],[address] [place] [address] 87080 LIPID PROFILEon 01-10-2022 Cholesterol [Mass/Vol] 117 mg/dL Normal 0 - 240 [facility] Comment on above: Performed By: #### 2 73276 #### [facility],[address] [place] [address] 42748 Cholesterol in HDL [Mass/Vol] 53 mg/dL Normal 40 - 60 [facility] Comment on above: Performed By: #### 2 40959 #### [facility],[address] [place] [address] 09722 Cholesterol in LDL [Mass/Vol] 43 mg/dL Normal 0 - 129 [facility] Comment on above: Performed By: #### 2 32342 #### [facility],[address] [place] [address] 76989 Cholesterol.total/Ramonita sterol in HDL [Mass ratio] 2.2 {ratio} Normal 0.0 - 5.0 [facility] Comment on above: Performed By: #### 2 83182 #### [facility],[address] [place] [address] 02897 Lipid 1996 panel Normal [facility] Comment on above: Result Comment: LIPI D PROFILE Performed By: #### 2 95972 #### [facility],[address] [place] [address]78 Triglyceride [Mass/Vol] 107 mg/dL Normal 0 - [address] [facility] Comment on above: Performed By: #### 2 [id number] #### [facility],[address] [place] [address]15 TSHon 01-10-2022 TSH Qn 1.04 m[IU]/L Normal 0.35 - 3.74 [facility] Comment on above: Performed By: #### 2 [id number] #### [facility],[address] [place] [address] 77612 VITAMIN D, 25 HYDROXYon 03-0 VitD 59.90 ng/mL Normal 30.00 - 100 [facility] Comment on above: Result Comment: 25-O HD3 indicates both endogenous production and supplementation. 25-OHD2 is an indicator of exogenous sources, such as diet or supplementation. Therapy is based on measurement of Total 25-OHD, with levels <20 ng/mL indicative of Vitamin D deficiency, while levels between 20 ng/mL and 30 ng/mL suggest insufficiency. Optimal levels are >=30ng/mL. Vitamin D, 25-OH D3 Not Established Vitamin D, 25-OH D2 Not Established Performed By: #### 2 [id number] #### [place] [id number] HGB A1C [CCL]on 09-22-2021 Glucose [Mass/Vol] 146 mg/dL Normal [facility] Comment on above: Result Comment: eAG: (Estimated average glucose) is a calculated value from HgbA1c and is ambulatory services representative of the average blood glucose level in the last 2-3 month period. [facility] [employer] [address] [place] [id number] Josafat Jose III, M.D. [id number] Performed By: #### 2 [id number] #### [address] [address] HbA1c (Bld) [Mass fraction] 6.7 % High 4.3-5.6 [facility] Comment on above: Result Comment: Amer [place] Diabetes Association guidelines indicate that patients with HgbA1c in the range 5.7-6.4% are at increased risk for development of diabetes, and intervention by lifestyle modification may be beneficial. HgbA1c greater or equal to 6.5% is considered diagnostic of diabetes. Performed By: #### 2 [id number] #### [address] [address] Hemoglobin A1con 09-22-2021 Glucose [Mass/Vol] 146 mg/dL Normal [facility] Comment on above: Performed By: #### H BA1C #### [facility] Routine Lab [address] [place] [id number] HbA1c (Bld) [Mass fraction] 6.7 % High 4.3-5.6 [facility] Comment on above: Performed By: #### H BA1C #### [facility] [address] [place] [address] CMP with eGFRon 09-20-2021 AGE 56 years Normal [facility] Comment on above: Performed By: #### 2 [id number] #### [facility],[address] [place] [address]53 Albumin [Mass/Vol] 4.0 g/dL Normal 3.4 - 5.0 [facility] Comment on above: Performed By: #### 2 99584 #### [facility],[address] [place] [address] Albumin/Globulin [Mass ratio] 1.3 {ratio} Normal 0.9 - 1.6 [facility] Comment on above: Performed By: #### 2 45528 #### [facility],[address] [place] [address] ALK PHOS 96 U/L Normal 46 - 116 [facility] Comment on above: Performed By: #### 2 [id number] #### [facility],[address] [place] [address]2986 ALT [Catalytic activity/Vol] 71 U/L High 14 - 59 [facility] Comment on above: Performed By: #### 2 12991 #### [facility],[address] [place] [address] Anion gap [Moles/Vol] 13 mmol/L Normal 10 - 20 [facility] Comment on above: Performed By: #### 2 89189 #### [facility],[address] [place] [address]29 AST [Catalytic activity/Vol] 33 U/L Normal 13 - 39 [facility] Comment on above: Performed By: #### 2 24049 #### [facility],[address] [place] [address] B/C RATIO 17 ratio Normal 0 - 30 [facility] Comment on above: Performed By: #### 2 61611 #### [facility],[address] [place] [address]65 Bilirubin [Mass/Vol] 0.7 mg/dL Normal 0.2 - 1.0 [facility] Comment on above: Performed By: #### 2 95446 #### [facility],[address] [place], [place] [phone] Calcium [Mass/Vol] 9.0 mg/dL Normal 8.5 - 10.1 [facility] Comment on above: Performed By: #### 2 98959 #### [facility],[address] [place], [place] [phone] Chloride [Moles/Vol] 105 mmol/L Normal 98 - 107 [facility] Comment on above: Performed By: #### 2 [id number] #### [facility],[address] [place], [place] [phone] CMP with eGFR Normal [facility] Comment on above: Result Comment: COMP REHENSIVE METABOLIC PANEL Performed By: #### 2 [id number] #### [facility],[address] [place] [address] 8[address]64 CO2 [Moles/Vol] 28.6 mmol/L Normal 21.0 - 32.0 [facility] Comment on above: Performed By: #### 2 43971 #### [facility],[address] [place], [place] [phone] Creatinine [Mass/Vol] 0.89 mg/dL Normal 0.55 - 1.02 [facility] Comment on above: Performed By: #### 2 64470 #### [facility],[address] [place], [place] [phone] GFR/1.73 sq M.predicted among non-blacks MDRD (S/P/Bld) [Vol rate/Area] mL/min/{1.73_m2} Normal 60 - 999 [facility] Comment on above: Performed By: #### 2 93561 #### [facility],[address] [place] [address] Result Comment: ACCO RDING TO THE NATIONAL KIDNEY DISEASE EDUCATION PROGRAM(NKDE), A NORMAL eGFR IS A VALUE GREATER THAN OR EQUAL TO 60 ML/MIN/1.73 SQ METERS. CHRONIC KIDNEY DISEASE: <60mL/MIN/1.73 SQ METERS KIDNEY FAILURE: <15mL/MIN/1.73 SQ METERS THIS TEST SHOULD ONLY BE USED FOR PATIENTS 18 YEARS OF AGE AND OLDER. Globulin (S) [Mass/Vol] 3.2 g/dL Normal 1.5 - 3.[address] [facility] Comment on above: Performed By: #### 2 67757 #### [facility],[address] [place] [address] Glucose [Mass/Vol] 119 mg/dL High 74 - 106 [facility] Comment on above: Performed By: #### 2 78384 #### [facility],[address] [place], [place] [phone] Potassium [Moles/Vol] 4.3 mmol/L Normal 3.5 - 5.1 [facility] Comment on above: Performed By: #### 2 41686 #### [facility],[address] [place] [address] Protein [Mass/Vol] 7.2 g/dL Normal 6.4 - 8.2 [facility] Comment on above: Performed By: #### 2 84261 #### [facility],[address] [place], [place] [phone] Sodium [Moles/Vol] 142 mmol/L Normal 136 - 145 [facility] Comment on above: Performed By: #### 2 56160 #### [facility],[address] [place], [place] [phone] Urea nitrogen [Mass/Vol] 15 mg/dL Normal 7 - 18 [facility] Comment on above: Performed By: #### 2 56489 #### [facility],[address] [place] [address] Laboratory - Chemistry and C hemistry - challengeon 07-16-2021 Albumin/Creatinine DL <= 20 mg/L (U) [Mass ratio] - Normal [facility] Creatinine (U) [Mass/Vol] - Normal [facility], [facility].; [facility] Laboratory - Urinalysison Protein Ql (U) - Normal [facility], [facility]. Hemoglobin A1con 07-08-2021 Glucose [Mass/Vol] 160 mg/dL Normal [facility] Comment on above: Performed By: #### H BA1C #### [facility] Routine Lab [address] [place] [phone] HbA1c (Bld) [Mass fraction] 7.2 % High 4.3-5.6 [facility] Comment on above: Performed By: #### H BA1C #### [facility] Routine Lab [address] [place] [phone] Laboratory - Chemistry and C hemistry - challengeon 07-06-2021 Albumin [Mass/Vol] 3.7 g/dL Normal 3.4 - 5.0 g/dL [facility], [facility].; [facility] Albumin [Mass/Vol] 1.1 g/dL Normal 0.9 - 1.6 [facility], [facility].; [facility], [facility]. ALP [Catalytic activity/Vol] 85 U/L Normal 46 - 116 U/L [facility].; [facility], [facility]. ALT [Catalytic activity/Vol] 37 U/L Normal 14 - 59 U/L [facility], [facility].; [facility], [facility]. ALT No additional P-5'-P [Catalytic activity/Vol] 37 U/L Normal 14 - 59 U/L [facility], [facility].; [facility], [facility]. AST [Catalytic activity/Vol] 20 U/L Normal 13 - 39 U/L [facility].; [facility], [facility]. Bilirubin [Mass/Vol] 0.4 mg/dL Normal 0.2 - 1 .0 mg/dL [facility].; [facility], [facility]. Calcium [Mass/Vol] 8.4 mg/dL Abnormal 8.5 - 10. 1 mg/dL [facility].; [facility], [facility] Chloride [Moles/Vol] 106 mmol/L Normal 98 - 10 7 mmol/L [facility].; [facility], [facility] Cholesterol [Mass/Vol] 123 mg/dL Normal 0 - 2 40 mg/dL [facility].; [facility], [facility]. Cholesterol in HDL [Mass or moles/Vol] 55 mg/dL Normal 40 - 60 mg/dL [facility].; [facility], [facility] Cholesterol in LDL [Mass/Vol] 46 mg/dL Normal 0 - 129 mg/dL [facility], [facility].; [facility], [facility] Cholesterol.total/Ramonita sterol in HDL [Mass ratio] 2.2 {ratio} Normal 0.0 - 5.0 [facility].; [facility], [facility] CO2 [Moles/Vol] 26.9 mmol/L Normal 21.0 - 32.0 mmol/L [facility], [facility].; [facility], [facility] Comprehensive metabolic 2000 panel CMP with eGFR Normal [facility]; [facility], [facility] Creatinine [Mass/Vol] 0.85 mg/dL Normal 0.55 - 1.02 mg/dL [facility], [facility].; [facility], [facility]. GFR/1.73 sq M.predicted among blacks MDRD (S/P/Bld) [Vol rate/Area] mL/min/{1.73_m2} Normal 60 - 999 {ML/MINUTE} [facility], [facility].; [facility], [facility]. GFR/1.73 sq M.predicted MDRD (S/P/Bld) [Vol rate/Area] mL/min/{1.73_m2} Normal 60 - 999 {ML/MINUTE} [facility], [facility].; [facility], [facility]. Globulin (S) [Mass/Vol] 3.3 g/dL Normal 1.5 - 3.8 g/dL [facility].; [facility] Glucose [Mass/Vol] 139 mg/dL Abnormal 74 - 106 mg/dL [facility].; [facility] Lipid 1996 panel LIPID PROFILE Normal [facility]; [facility], [facility] Potassium [Moles/Vol] 3.7 mmol/L Normal 3.5 - 5.1 mmol/L [facility]; [facility] Protein [Mass/Vol] 7.0 g/dL Normal 6.4 - 8.2 g/dL [facility].; [facility], [facility] Sodium [Moles/Vol] 142 mmol/L Normal 136 - 145 mmol/L [facility]; [facility], [facility] Triglyceride [Mass/Vol] 112 mg/dL Normal 0 - 150 mg/dL [facility]; [facility] TSH Qn 1.02 m[IU]/L Normal 0.35 - 3.74 {uIU/ml} [facility]; [facility], [facility] Urea nitrogen [Mass/Vol] 9 mg/dL Normal 7 - 18 mg/dL [facility].; [facility], [facility] Urea nitrogen/Creatinine [Mass ratio] 11 {ratio} Normal 0 - 30 {ratio} [facility].; [place], [facility]. No Panel Informationon 07-06 13 mmol/L Normal 10 - 20 mmol/L [facility]; [facility], [facility] 56 {years} Normal [facility]; [facility], [facility] 7.2 % Abnormal 4.3 - 5.6 % [facility]; [place], [facility] Work Phone: 160 mg/dL Normal [facility]; [place], [facility] Work Phone: Laboratory - Hematology and Cell countson 06-25-2021 HbA1c (Bld) [Mass fraction] - Normal 4.6 - 7.1 % [facility]; [facility] Laboratory - Hematology and Cell countson 04-15-2021 HbA1c (Bld) [Mass fraction] 7.4 % Abnormal 4.6 - 7.1 % [facility], [facility].; [facility], [facility]. HbA1c (Bld) [Mass fraction] - Normal 4.6 - 7.1 % [facility], [facility].; [facility], [facility]. Laboratory - Hematology and Cell countson 12-17-2020 HbA1c (Bld) [Mass fraction] 7.3 % Abnormal 4.6 - 7.1 % [facility], [facility].; [facility], [facility]. Laboratory - Chemistry and C hemistry - challengeon 08-30-2020 Albumin [Mass/Vol] 4.0 g/dL Normal 3.4 - 4.8 g/dL [facility], [facility].; [facility], [facility]. Albumin [Mass/Vol] 1.5 g/dL Normal 0.9 - 1.6 [facility], [facility].; [facility], [employer]. ALP [Catalytic activity/Vol] 86 U/L Normal 38 - 126 U/L [facility], [facility].; [facility], [employer]. ALT [Catalytic activity/Vol] 46 U/L Abnormal 8 - 35 U/L [facility], [facility].; [place], [employer]. ALT No additional P-5'-P [Catalytic activity/Vol] 46 U/L Abnormal 8 - 35 U/L [facility], [facility].; [facility] AST [Catalytic activity/Vol] 35 U/L Normal 13 - 39 U/L [facility], [facility].; [place], [facility]. Bilirubin [Mass/Vol] 0.5 mg/dL Normal 0.0 - 1 .5 mg/dL [facility], [facility].; [facility], [facility]. Calcium [Mass/Vol] 9.2 mg/dL Normal 8.6 - 10. 2 mg/dL [facility], [facility].; [facility], [facility]. Chloride [Moles/Vol] 106 mmol/L Normal 98 - 10 7 mmol/L [facility], [facility].; [facility], [facility]. Cholesterol [Mass/Vol] 96 mg/dL Normal 0 - 2 00 mg/dL [facility], [facility].; [facility], [facility]. Cholesterol in HDL [Mass or moles/Vol] 39 mg/dL Abnormal 40 - 60 mg/dL [facility].; [facility], [facility] Cholesterol in LDL [Mass/Vol] 28 mg/dL Normal 0 - 129 mg/dL [facility].; [facility], [facility] Cholesterol.total/Ramonita sterol in HDL [Mass ratio] 2.5 {ratio} Normal 0.0 - 5.0 [facility]; [facility], [facility] CO2 [Moles/Vol] 26.9 mmol/L Normal 21.0 - 31.0 mmol/L [facility]; [facility], [facility] Comprehensive metabolic 2000 panel CMP with eGFR Normal [facility]; [facility], [facility] Creatinine [Mass/Vol] 0.6 mg/dL Normal 0.6 - 1.2 mg/dL [facility], [facility]; [facility], [facility] CRP [Mass/Vol] 0.17 mg/dL Normal 0.00 - 1.00 mg/dL [facility], [facility].; [facility], [facility]. GFR/1.73 sq M.predicted among blacks MDRD (S/P/Bld) [Vol rate/Area] mL/min/{1.73_m2} Normal 60 - 999 {ML/MINUTE} [facility], [facility].; [facility], [facility]. GFR/1.73 sq M.predicted MDRD (S/P/Bld) [Vol rate/Area] mL/min/{1.73_m2} Normal 60 - 999 {ML/MINUTE} [facility], [facility].; [facility], [facility]. Globulin (S) [Mass/Vol] 2.6 g/dL Normal 1.5 - 3.8 g/dL [facility], [facility].; [facility], [facility]. Glucose [Mass/Vol] 116 mg/dL Abnormal 74 - 106 mg/dL [facility].; [facility], [facility] Lipid 1996 panel LIPID PROFILE Normal [facility], [facility].; [facility], [facility] Potassium [Moles/Vol] 3.8 mmol/L Normal 3.5 - 5.1 mmol/L [facility].; [facility] Protein [Mass/Vol] 6.6 g/dL Normal 6.4 - 8.3 g/dL [facility].; [employer] Sodium [Moles/Vol] 142 mmol/L Normal 136 - 145 mmol/L [facility].; [employer], [employer]. Triglyceride [Mass/Vol] 147 mg/dL Normal 0 - 150 mg/dL [facility].; [employer], [employer]. Urea nitrogen [Mass/Vol] 15 mg/dL Normal 6 - 20 mg/dL [facility].; [employer], [employer]. Urea nitrogen/Creatinine [Mass ratio] 25 {ratio} Normal 0 - 30 {ratio} [employer], [employer]. Laboratory - Hematology and Cell countson 08-30-2020 ESR (Bld) [Velocity] 7 mm/h Normal 0 - 30 mm/h [facility].; [employer]. No Panel Informationon 08-30 13 mmol/L Normal 10 - 20 mmol/L [facility].; [employer], [employer]. 55 {years} Normal [facility].; [employer]. 7.4 % Abnormal 4.3 - 5.6 % [facility].; [employer]. 166 mg/dL Normal [facility].; [employer], [employer]. <10 Normal [facility].; [employer]. Negative Normal [facility].; [employer]. Laboratory - Hematology and Cell countson 06-12-2020 HbA1c (Bld) [Mass fraction] 7.2 % Abnormal 4.6 - 7.1 % [facility].; [employer], [employer]. Laboratory - Chemistry and C hemistry - challengeon 03-12-2020 Albumin/Creatinine DL <= 20 mg/L (U) [Mass ratio] mg/g Normal [facility].; [employer], [employer]. Creatinine (U) [Mass/Vol] 200 mg/dL Normal [facility].; [employer], [employer]. Laboratory - Hematology and Cell countson 03-12-2020 HbA1c (Bld) [Mass fraction] 7.6 % Abnormal 4.6 - 7.1 % [facility], [facility].; [facility], [employer]. Laboratory - Urinalysison Protein Ql (U) 30 mg/dL Abnormal [facility], [facility].; [facility], [employer]. Laboratory - Hematology and Cell countson 12-13-2019 HbA1c (Bld) [Mass fraction] 7.3 % Abnormal 4.6 - 7.1 % [facility].; [facility], [facility] Laboratory - Chemistry and C hemistry - challengeon 10-28-2019 Cholesterol [Mass/Vol] 73 mg/dL Normal 0 - 2 00 mg/dL [facility]; [facility], [facility]. Cholesterol in HDL [Mass or moles/Vol] 34 mg/dL Abnormal 40 - 60 mg/dL [facility], [facility].; [facility], [facility] Cholesterol in LDL [Mass/Vol] 22 mg/dL Normal 0 - 129 mg/dL [facility].; [place], [employer]. Cholesterol.total/Ramonita sterol in HDL [Mass ratio] 2.1 {ratio} Normal 0.0 - 5.0 [facility].; [facility] Lipid 1996 panel LIPID PROFILE Normal [facility].; [facility], [facility] Triglyceride [Mass/Vol] 84 mg/dL Normal 0 - 150 mg/dL [facility], [facility].; [place], [facility]. Laboratory - Chemistry and C hemistry - challengeon 09-06-2019 Cholesterol [Mass/Vol] 145 mg/dL Normal [facility].; [place] [employer] Cholesterol in HDL [Mass/Vol] 33 mg/dL Abnormal [facility].; [place], [facility]. Cholesterol in LDL [Mass/Vol] SEE NOTE Normal [facility].; [facility], [facility]. Cholesterol non HDL [Mass/Vol] 112 mg/dL Normal [facility], [facility].; [place], [employer]. Cholesterol.total/Ramonita sterol in HDL [Mass ratio] 4.4 {ratio} Normal [facility].; [place] [employer] Triglyceride [Mass/Vol] 443 mg/dL Abnormal [facility], [facility].; [employer], [employer]. Laboratory - Hematology and Cell countson 09-06-2019 HbA1c (Bld) [Mass fraction] 8.8 % Abnormal 4.6 - 7.1 % [facility], [facility].; [employer], [employer]. Laboratory - Chemistry and C hemistry - challengeon 06-10-2019 Cholesterol [Mass/Vol] 152 mg/dL Normal 0 - 2 00 mg/dL [facility].; [place], [employer]. Cholesterol in HDL [Mass or moles/Vol] 34 mg/dL Abnormal 40 - 60 mg/dL [facility], [facility].; [place], [employer]. Cholesterol in LDL [Mass/Vol] 39 mg/dL Normal 0 - 129 mg/dL [facility].; [employer], [employer]. Cholesterol.total/Ramonita sterol in HDL [Mass ratio] 4.5 {ratio} Normal 0.0 - 5.0 [facility] [employer]. Lipid 1995 panel LIPID PROFILE Normal [facility].; [employer]. Triglyceride [Mass/Vol] 394 mg/dL Abnormal 0 - 150 mg/dL [facility].; [employer], [employer]. Laboratory - Hematology and Cell countson 06-06-2019 HbA1c (Bld) [Mass fraction] 8.1 % Abnormal 4.6 - 7.1 % [facility], [facility].; [employer]. Laboratory - Chemistry and C hemistry - challengeon 03-11-2019 Cholesterol [Mass/Vol] 133 mg/dL Normal 0 - 2 00 mg/dL [facility], [facility].; [employer], [employer]. Cholesterol in HDL [Mass or moles/Vol] 34 mg/dL Abnormal 40 - 60 mg/dL [facility].; [employer], [employer]. Cholesterol in LDL [Mass/Vol] 48 mg/dL Normal 0 - 129 mg/dL [facility], [employer].; [employer], [employer]. Cholesterol.total/Ramonita sterol in HDL [Mass ratio] 3.9 {ratio} Normal 0.0 - 5.0 [employer]. Lipid 1996 panel LIPID PROFILE Normal [facility].; [employer]. Triglyceride [Mass/Vol] 257 mg/dL Abnormal 0 - 150 mg/dL [employer] [employer].; [employer]. Laboratory - Hematology and Cell countson 03-07-2019 HbA1c (Bld) [Mass fraction] 7.8 % Abnormal 4.6 - 7.1 % [employer]. Laboratory - Chemistry and C hemistry - challengeon 01-18-2019 Bilirubin Ql (U) Negative Normal [facility] [employer]; [employer]. Ketones Ql (U) Negative Normal [facility] [employer]; [employer]. pH (U) 7.0 [pH] Normal [employer] [employer]. Specific gravity (U) [Rel density] 1.020 Normal [employer] [employer].; [employer]. Urobilinogen Qn (U) 0.2 mg/dL Normal [facility].; [employer]. Laboratory - Hematology and Cell countson 01-18-2019 Hemoglobin Ql (U) Negative Normal [employer] [employer]. Laboratory - Specimen inform ationon 01-18-2019 Appearance (U) clear Normal [facility].; [employer]. Color (U) yellow Normal [employer]. Laboratory - Urinalysison Glucose Test strip (U) [Mass/Vol] Negative Normal [employer].; [employer]. Leukocyte esterase Test strip Ql (U) Negative Normal [employer].; [employer]. Nitrite Ql (U) Negative Normal [facility].; [employer]. Protein Ql (U) trace Normal [facility].; [employer]. Laboratory - Chemistry and C hemistry - challengeon 12-24-2018 Albumin [Mass/Vol] 4.2 g/dL Normal 3.4 - 4.8 g/dL [facility].; [facility], [facility]. Albumin [Mass/Vol] 1.7 g/dL Abnormal 0.9 - 1.6 [facility].; [facility], [facility]. ALP [Catalytic activity/Vol] 91 U/L Normal 38 - 126 U/L [facility].; [facility], [facility]. ALT [Catalytic activity/Vol] 28 U/L Normal 8 - 35 U/L [facility].; [facility], [facility]. ALT No additional P-5'-P [Catalytic activity/Vol] 28 U/L Normal 8 - 35 U/L [facility].; [facility], [facility]. AST [Catalytic activity/Vol] 22 U/L Normal 13 - 39 U/L [facility].; [facility], [facility]. Bilirubin [Mass/Vol] 0.6 mg/dL Normal 0.0 - 1 .5 mg/dL [facility].; [facility], [facility] Calcium [Mass/Vol] 9.5 mg/dL Normal 8.6 - 10. 2 mg/dL [facility].; [facility], [facility]. Chloride [Moles/Vol] 103 mmol/L Normal 98 - 10 7 mmol/L [facility]; [facility], [facility]. Cholesterol [Mass/Vol] 134 mg/dL Normal 0 - 2 00 mg/dL [facility].; [facility], [facility]. Cholesterol in HDL [Mass or moles/Vol] 38 mg/dL Abnormal 40 - 60 mg/dL [facility].; [facility], [facility]. Cholesterol in LDL [Mass/Vol] 39 mg/dL Normal 0 - 129 mg/dL [facility].; [facility], [facility]. Cholesterol.total/Ramontia sterol in HDL [Mass ratio] 3.5 {ratio} Normal 0.0 - 5.0 [facility].; [facility], [facility] CO2 [Moles/Vol] 26.9 mmol/L Normal 21.0 - 31.0 mmol/L [facility], [facility].; [facility], [facility] Comprehensive metabolic 2000 panel CMP with eGFR Normal [facility]; [facility] [facility] Creatinine [Mass/Vol] 0.7 mg/dL Normal 0.6 - 1.2 mg/dL [facility].; [facility]. Gamma glutamyl transferase [Catalytic activity/Vol] 28 U/L Normal 8 - 64 U/L [facility].; [facility], [facility]. GFR/1.73 sq M.predicted among blacks MDRD (S/P/Bld) [Vol rate/Area] mL/min/{1.73_m2} Normal 60 - 999 {ML/MINUTE} [facility].; [facility], [facility]. GFR/1.73 sq M.predicted MDRD (S/P/Bld) [Vol rate/Area] mL/min/{1.73_m2} Normal 60 - 999 {ML/MINUTE} [facility], [facility].; [facility], [facility]. Globulin (S) [Mass/Vol] 2.5 g/dL Normal 1.5 - 3.8 g/dL [facility].; [facility], [facility]. Glucose [Mass/Vol] 148 mg/dL Abnormal 74 - 106 mg/dL [facility].; [facility], [facility]. Lipid 1996 panel LIPID PROFILE Normal [facility]; [facility], [facility]. Potassium [Moles/Vol] 4.0 mmol/L Normal 3.5 - 5.1 mmol/L [facility], [facility].; [facility], [facility]. Protein [Mass/Vol] 6.7 g/dL Normal 6.4 - 8.3 g/dL [facility], [facility].; [facility], [facility]. Sodium [Moles/Vol] 139 mmol/L Normal 136 - 145 mmol/L [facility], [facility].; [facility], [facility]. Triglyceride [Mass/Vol] 287 mg/dL Abnormal 0 - 150 mg/dL [facility].; [facility], [facility]. Urea nitrogen [Mass/Vol] 14 mg/dL Normal 6 - 20 mg/dL [facility], [facility].; [facility], [facility]. Urea nitrogen/Creatinine [Mass ratio] 20 {ratio} Normal 0 - 30 {ratio} [facility].; [facility], Inc[employer] No Panel Informationon 12-24 13 mmol/L Normal 10 - 20 mmol/L [employer] [employer] 53 {years} Normal [employer] [employer] [employer] Laboratory - Chemistry and C hemistry - challengeon 11-16-2018 Albumin/Creatinine DL <= 20 mg/L (U) [Mass ratio] mg/g Normal [employer] [employer].; [employer] Creatinine (U) [Mass/Vol] 200 mg/dL Normal [employer] [employer].; [employer]. Laboratory - Urinalysison Protein Ql (U) 30 mg/dL Abnormal [facility].; [employer] [employer]. Laboratory - Chemistry and C hemistry - challengeon 11-05-2018 Albumin [Mass/Vol] 4.3 g/dL Normal 3.4 - 4.8 g/dL [employer] [employer].; [employer]. Albumin [Mass/Vol] 1.6 g/dL Normal 0.9 - 1.6 [employer] [employer].; [employer]. ALP [Catalytic activity/Vol] 71 U/L Normal 38 - 126 U/L [employer] [employer].; [employer]. ALT [Catalytic activity/Vol] 20 U/L Normal 8 - 35 U/L [employer] [employer].; [employer]. ALT No additional P-5'-P [Catalytic activity/Vol] 20 U/L Normal 8 - 35 U/L [employer] [employer].; [employer]. AST [Catalytic activity/Vol] 16 U/L Normal 13 - 39 U/L [employer].; [employer]. Bilirubin [Mass/Vol] 0.5 mg/dL Normal 0.0 - 1 .5 mg/dL [employer] [employer].; [employer], [employer]. Calcium [Mass/Vol] 9.5 mg/dL Normal 8.6 - 10. 2 mg/dL [employer] [employer].; [employer]. Chloride [Moles/Vol] 101 mmol/L Normal 98 - 10 7 mmol/L [facility].; [facility] Cholesterol [Mass/Vol] 198 mg/dL Normal 0 - 2 00 mg/dL [facility]; [facility] Cholesterol in HDL [Mass or moles/Vol] 41 mg/dL Normal 40 - 60 mg/dL [facility].; [facility], [facility] Cholesterol in LDL [Mass/Vol] 104 mg/dL Normal 0 - 129 mg/dL [facility]; [facility], [facility] Cholesterol.total/Ramonita sterol in HDL [Mass ratio] 4.8 {ratio} Normal 0.0 - 5.0 [facility]; [facility] CO2 [Moles/Vol] 33.5 mmol/L Abnormal 21.0 - 31.0 mmol/L [facility]; [facility], [facility] Comprehensive metabolic 2000 panel CMP with eGFR Normal [facility]; [facility], [facility] Creatinine [Mass/Vol] 0.9 mg/dL Normal 0.6 - 1.2 mg/dL [facility].; [facility], [facility]. GFR/1.73 sq M.predicted among blacks MDRD (S/P/Bld) [Vol rate/Area] mL/min/{1.73_m2} Normal 60 - 999 {ML/MINUTE} [facility].; [facility], [facility]. GFR/1.73 sq M.predicted MDRD (S/P/Bld) [Vol rate/Area] mL/min/{1.73_m2} Normal 60 - 999 {ML/MINUTE} [facility], [facility].; [facility], [facility]. Globulin (S) [Mass/Vol] 2.7 g/dL Normal 1.5 - 3.8 g/dL [facility]; [facility], [facility]. Glucose [Mass/Vol] 133 mg/dL Abnormal 74 - 106 mg/dL [facility].; [facility], [facility] Lipid 1996 panel LIPID PROFILE Normal [facility], [facility]; [facility], [facility] Potassium [Moles/Vol] 4.1 mmol/L Normal 3.5 - 5.1 mmol/L [facility].; [employer]. Protein [Mass/Vol] 7.0 g/dL Normal 6.4 - 8.3 g/dL [employer] [employer]. Sodium [Moles/Vol] 142 mmol/L Normal 136 - 145 mmol/L [employer] [employer].; [employer]. Triglyceride [Mass/Vol] 267 mg/dL Abnormal 0 - 150 mg/dL [employer] [employer].; [employer]. Urea nitrogen [Mass/Vol] 11 mg/dL Normal 6 - 20 mg/dL [employer] [employer].; [employer]. Urea nitrogen/Creatinine [Mass ratio] 12 {ratio} Normal 0 - 30 {ratio} [employer].; [employer]. Laboratory - Hematology and Cell countson 11-05-2018 HbA1c (Bld) [Mass fraction] 7.0 % Abnormal 4.4 - 6.4 % [employer] [employer]. No Panel Informationon 11-05 12 mmol/L Normal 10 - 20 mmol/L [employer] [employer]. 53 {years} Normal [employer].; [employer]. Laboratory - Hematology and Cell countson 08-18-2018 HbA1c (Bld) [Mass fraction] 7.2 % Abnormal 4.6 - 7.1 % [employer] [employer]. Laboratory - Hematology and Cell countson 05-09-2018 HbA1c (Bld) [Mass fraction] 7.3 % Abnormal 4.6 - 7.1 % [employer] [employer]. Laboratory - Chemistry and C hemistry - challengeon 02-09-2018 Free T3 [Mass/Vol] 2.9 pg/mL Normal 2.3 - 4.2 pg/mL [employer] [employer]. Free T4 [Mass/Vol] 1.1 ng/dL Normal 0.8 - 1.8 ng/dL [employer]. TSH Qn 0.76 m[IU]/L Normal 0.40 - 4.50 {mIU/L} [facility].; [employer]. Laboratory - Hematology and Cell countson 02-09-2018 HbA1c (Bld) [Mass fraction] 6.6 % Normal 4.6 - 7.1 % [facility].; [employer]. Laboratory - Serology - non- microon 02-09-2018 TPO Ab Qn [IU]/mL Normal [facility].; [employer]. Laboratory - Chemistry and C hemistry - challengeon 11-11-2017 Albumin/Creatinine DL <= 20 mg/L (U) [Mass ratio] mg/g Normal [facility].; [place] [employer] Creatinine (U) [Mass/Vol] 300 mg/dL Normal [employer] [employer].; [employer]. Laboratory - Hematology and Cell countson 11-11-2017 HbA1c (Bld) [Mass fraction] 6.1 % Normal 4.6 - 7.1 % [place] [facility].; [employer]. Laboratory - Urinalysison Protein Ql (U) 30mg/L Normal [facility].; [employer]. Office Visiton 09-09-2017 Documentation of current medications (procedure) Done Invalid Interpretation Code [facility] Work Phone: Tobacco smoking status NHIS Never Invalid Interpretation Code [facility] Work Phone: Tobacco use [facility] Never smoker Invalid Interpretation Code [facility] Work Phone: Laboratory - Chemistry and C hemistry - challengeon 08-13-2017 Albumin [Mass/Vol] 4.5 g/dL Normal 3.4 - 4.8 g/dL [facility].; [employer]. Albumin [Mass/Vol] 1.6 g/dL Normal 0.9 - 1.6 [employer] [employer]. ALP [Catalytic activity/Vol] 78 U/L Normal 38 - 126 U/L [employer] [employer].; [employer]. ALT [Catalytic activity/Vol] 30 U/L Normal 8 - 35 U/L [facility].; [facility], [facility]. ALT No additional P-5'-P [Catalytic activity/Vol] 30 U/L Normal 8 - 35 U/L [facility].; [facility], [facility]. AST [Catalytic activity/Vol] 27 U/L Normal 13 - 39 U/L [facility].; [facility]. Bilirubin [Mass/Vol] 0.4 mg/dL Normal 0.0 - 1 .5 mg/dL [facility].; [facility], [facility] Calcium [Mass/Vol] 9.3 mg/dL Normal 8.6 - 10. 2 mg/dL [facility].; [facility]. Chloride [Moles/Vol] 103 mmol/L Normal 98 - 10 7 mmol/L [facility].; [facility], [facility]. Cholesterol [Mass/Vol] 176 mg/dL Normal 0 - 2 00 mg/dL [facility].; [facility]. Cholesterol in HDL [Mass or moles/Vol] 38 mg/dL Abnormal 40 - 60 mg/dL [facility].; [facility], [facility]. Cholesterol in LDL [Mass/Vol] 102 mg/dL Normal 0 - 129 mg/dL [facility].; [facility], [facility]. Cholesterol.total/Ramonita sterol in HDL [Mass ratio] 4.6 {ratio} Normal 0.0 - 5.0 [facility].; [facility], [facility]. CO2 [Moles/Vol] 30.5 mmol/L Normal 21.0 - 31.0 mmol/L [facility].; [facility], [facility]. Comprehensive metabolic 2000 panel CMP with eGFR Normal [facility]; [facility], [facility] Creatinine [Mass/Vol] 0.7 mg/dL Normal 0.6 - 1.2 mg/dL [facility].; [facility], [facility]. GFR/1.73 sq M.predicted among blacks MDRD (S/P/Bld) [Vol rate/Area] mL/min/{1.73_m2} Normal 60 - 999 {ML/MINUTE} [facility], [facility].; [facility] [facility], [facility]. GFR/1.73 sq M.predicted MDRD (S/P/Bld) [Vol rate/Area] mL/min/{1.73_m2} Normal 60 - 999 {ML/MINUTE} [facility], [facility].; [place] [employer]. Globulin (S) [Mass/Vol] 2.8 g/dL Normal 1.5 - 3.8 g/dL [facility].; [place] [employer] Glucose [Mass/Vol] 104 mg/dL Normal 74 - 106 mg/dL [facility].; [employer]. Lipid 1996 panel LIPID PROFILE Normal [facility].; [place] [employer]. Potassium [Moles/Vol] 4.3 mmol/L Normal 3.5 - 5.1 mmol/L [facility].; [place] [employer]. Protein [Mass/Vol] 7.3 g/dL Normal 6.4 - 8.3 g/dL [facility].; [employer]. Sodium [Moles/Vol] 139 mmol/L Normal 136 - 145 mmol/L [facility].; [place] [employer]. Triglyceride [Mass/Vol] 180 mg/dL Abnormal 0 - 150 mg/dL [facility], [facility].; [employer]. Urea nitrogen [Mass/Vol] 16 mg/dL Normal 6 - 20 mg/dL [facility], [facility].; [employer]. Urea nitrogen/Creatinine [Mass ratio] 23 {ratio} Normal 0 - 30 {ratio} [facility].; [employer], [employer]. No Panel Informationon 08-13 10 mmol/L Normal 10 - 20 mmol/L [facility].; [employer], [employer]. 52 {years} Normal [place] [facility].; [employer], [employer]. Laboratory - Hematology and Cell countson 08-12-2017 HbA1c (Bld) [Mass fraction] 6.7 % Normal 4.6 - 7.1 % [facility].; [employer]. Office Visiton 06-10-2017 Documentation of current medications (procedure) Done Invalid Interpretation Code [facility] Work Phone: Fall risk assessment No Invalid Interpretation Code [facility] Work Phone: Tobacco smoking status NHIS Never Invalid Interpretation Code [facility] Work Phone: Tobacco use [facility] Never smoker Invalid Interpretation Code [facility] Work Phone: Laboratory - Hematology and Cell countson 05-17-2017 HbA1c (Bld) [Mass fraction] 7.9 % Abnormal 4.6 - 7.1 % [facility].; [facility], [facility]. Laboratory - Chemistry and C hemistry - challengeon 04-07-2017 Bilirubin Ql (U) Small Abnormal [facility], [facility].; [place] [employer]. Creatinine [Mass/Vol] 0.75 mg/dL Normal 0.50 - 1.05 mg/dL [facility], [facility].; [place] [employer] GFR/1.73 sq M.predicted among blacks MDRD (S/P/Bld) [Vol rate/Area] 106 {ML/MIN/1.73M2} Normal [facility], [facility].; [facility] [facility], [employer] GFR/1.73 sq M.predicted MDRD (S/P/Bld) [Vol rate/Area] 92 {ML/MIN/1.73M2} Normal [facility], [facility].; [employer] Ketones Ql (U) Negative Normal [facility], [facility].; [employer] pH (U) 5.5 [pH] Normal [employer], [facility].; [employer] Specific gravity (U) [Rel density] >1.030 Normal [employer] Urea nitrogen [Mass/Vol] 18 mg/dL Normal 7 - 25 mg/dL [employer], [facility].; [employer] Urobilinogen Qn (U) 0.2 mg/dL Normal [facility], [employer].; [employer] Laboratory - Hematology and Cell countson 04-07-2017 Hemoglobin Ql (U) trace, hemolyzed Abnormal [facility].; [employer]. Laboratory - Specimen inform ationon 04-07-2017 Appearance (U) clear Normal [facility] [employer]; [employer]. Color (U) yellow Normal [employer]. Laboratory - Urinalysison Glucose Test strip (U) [Mass/Vol] 100 mg/dL Normal [employer].; [employer]. Leukocyte esterase Test strip Ql (U) Negative Normal [employer]. Nitrite Ql (U) Negative Normal [facility].; [employer]. Protein Ql (U) 30 mg/dL Abnormal [facility] [employer]; [employer]. Laboratory - Hematology and Cell countson 02-15-2017 HbA1c (Bld) [Mass fraction] 7.1 % Normal 4.6 - 7.1 % [employer]. Laboratory - Chemistry and C hemistry - challengeon 11-19-2016 Albumin/Creatinine DL <= 20 mg/L (U) [Mass ratio] mg/g Normal [employer] [employer]. Creatinine (U) [Mass/Vol] 100 mg/dL Normal [employer]. Laboratory - Hematology and Cell countson 11-19-2016 HbA1c (Bld) [Mass fraction] 7.0 % Normal 4.6 - 7.1 % [employer]. Laboratory - Urinalysison Protein Ql (U) 30 mg/dL Abnormal [facility] [employer].; [employer]. Laboratory - Hematology and Cell countson 08-13-2016 HbA1c (Bld) [Mass fraction] 7.5 % Abnormal 4.6 - 7.1 % [employer]. Lab Report: Bedside Glucoseo n 08-11-2016 Glucose mass conc 117 mg/dL High 70-110 [facility] Work Phone: Laboratory - Hematology and Cell countson 05-13-2016 HbA1c (Bld) [Mass fraction] 9.1 % Abnormal 4.6 - 7.1 % [facility], [facility].; [place] [facility] Laboratory - Chemistry and C hemistry - challengeon 03-16-2016 Albumin [Mass/Vol] 4.3 g/dL Normal 3.4 - 4.8 g/dL [facility], [facility].; [facility], [employer] Albumin [Mass/Vol] 1.5 g/dL Normal 0.9 - 1.6 [facility], [facility].; [facility] [facility] [employer] ALP [Catalytic activity/Vol] 96 U/L Normal 38 - 126 U/L [facility], [facility].; [place] [employer] ALT [Catalytic activity/Vol] 25 U/L Normal 8 - 35 U/L [facility], [facility].; [facility] [facility], [employer]. ALT No additional P-5'-P [Catalytic activity/Vol] 25 U/L Normal 8 - 35 U/L [facility], [facility].; [place] [employer]. AST [Catalytic activity/Vol] 19 U/L Normal 13 - 39 U/L [facility], [facility].; [place] [employer] Bilirubin [Mass/Vol] 0.4 mg/dL Normal 0.0 - 1 .5 mg/dL [facility], [facility].; [place] [employer] Calcium [Mass/Vol] 9.3 mg/dL Normal 8.6 - 10. 2 mg/dL [facility], [facility].; [place] [employer] Chloride [Moles/Vol] 102 mmol/L Normal 98 - 10 7 mmol/L [facility], [facility].; [employer] Cholesterol [Mass/Vol] 155 mg/dL Normal 0 - 2 00 mg/dL [facility], [facility].; [place] [employer] Cholesterol in HDL [Mass or moles/Vol] 29 mg/dL Abnormal 40 - 60 mg/dL [facility], [facility].; [place] [employer] Cholesterol in LDL [Mass/Vol] 80 mg/dL Normal 0 - 129 mg/dL [facility], [facility].; [facility], [facility]. Cholesterol.total/Ramonita sterol in HDL [Mass ratio] 5.3 {ratio} Abnormal 0.0 - 5.0 [facility].; [facility], [facility] CO2 [Moles/Vol] 32.0 mmol/L Abnormal 13.0 - 29.0 mmol/L [facility].; [facility], [facility]. Comprehensive metabolic 2000 panel CMP with eGFR Normal [facility]; [facility], [facility] Creatinine [Mass/Vol] 0.7 mg/dL Normal 0.6 - 1.2 mg/dL [facility], [facility].; [facility], [facility]. GFR/1.73 sq M.predicted among blacks MDRD (S/P/Bld) [Vol rate/Area] mL/min/{1.73_m2} Normal 60 - 999 {ML/MINUTE} [facility], [facility].; [facility], [facility]. GFR/1.73 sq M.predicted MDRD (S/P/Bld) [Vol rate/Area] mL/min/{1.73_m2} Normal 60 - 999 {ML/MINUTE} [facility], [facility].; [facility], [facility]. Globulin (S) [Mass/Vol] 2.8 g/dL Normal 1.5 - 3.8 g/dL [facility], [facility].; [facility], [facility]. Glucose [Mass/Vol] 160 mg/dL Abnormal 74 - 106 mg/dL [facility], [facility].; [facility], [facility]. Lipid 1996 panel LIPID PROFILE Normal [facility], [facility].; [facility], [facility] Potassium [Moles/Vol] 4.0 mmol/L Normal 3.5 - 5.1 mmol/L [facility], [facility].; [facility], [facility] Protein [Mass/Vol] 7.1 g/dL Normal 6.4 - 8.3 g/dL [facility], [facility].; [facility] [employer] Sodium [Moles/Vol] 139 mmol/L Normal 136 - 145 mmol/L [facility], [facility].; [facility], [facility] Triglyceride [Mass/Vol] 232 mg/dL Abnormal 0 - 150 mg/dL [facility].; [employer] Urea nitrogen [Mass/Vol] 11 mg/dL Normal 6 - 20 mg/dL [facility]; [place] [employer] Urea nitrogen/Creatinine [Mass ratio] 16 {ratio} Normal 0 - 30 {ratio} [facility].; [employer] No Panel Informationon 03-16 9 mmol/L Abnormal 10 - 20 mmol/L [facility]; [place] [employer] 51 {years} Normal [facility]; [employer] Laboratory - Hematology and Cell countson 02-14-2016 HbA1c (Bld) [Mass fraction] 8.2 % Abnormal 4.6 - 7.1 % [facility]; [place] [employer] Laboratory - Chemistry and C hemistry - challengeon 10-09-2015 Albumin/Creatinine DL <= 20 mg/L (U) [Mass ratio] mg/g Normal [facility]; [employer] Creatinine (U) [Mass/Vol] 200 mg/dL Normal [facility]; [employer] Laboratory - Hematology and Cell countson 10-09-2015 HbA1c (Bld) [Mass fraction] 7.4 % Abnormal 4.6 - 7.1 % [facility]; [employer]. Laboratory - Urinalysison Protein Ql (U) 10mg/L Normal [facility].; [place] [employer] Laboratory - Chemistry and C hemistry - challengeon 08-08-2015 Fat.microscopic observation [place] IV stain Nom (Stl) FECAL FAT QUALITATIVE Normal [facility].; [employer] Hemoglobin.gastrointest inal Ql (Stl) See Note Normal [facility] [employer] [facility]; [employer] Laboratory - Microbiology an d Antimicrobial susceptibilityon 08-08-2015 C. difficile toxin A+B IA Ql (Stl) C DIFF COMPLETE Normal [facility].; [employer] Ova and parasites identified Trichrome stain Nom (Stl) Normal [facility]; [employer]. No Panel Informationon 08-08 Observation duration YES Normal [facility].; [employer]. PASS Normal [facility].; [employer]. Laboratory - Chemistry and C hemistry - challengeon 07-08-2015 Bilirubin Ql (U) Negative Normal [facility] [employer]; [employer]. Ketones Ql (U) Negative Normal [facility].; [employer]. pH (U) 5.5 [pH] Normal [place] [employer]. Specific gravity (U) [Rel density] 1.025 Normal [place] [employer].; [employer]. Urobilinogen Qn (U) 0.2 mg/dL [facility].; [employer]. Laboratory - Hematology and Cell countson 07-08-2015 Hemoglobin Ql (U) Negative Normal [place] [employer]. Laboratory - Specimen inform ationon 07-08-2015 Appearance (U) clear Normal [facility].; [employer]. Color (U) yellow Normal [place] [employer].; [employer]. Laboratory - Urinalysison Glucose Test strip (U) [Mass/Vol] Negative Normal [place] [employer]. Leukocyte esterase Test strip Ql (U) Negative Normal [place] [employer].; [employer]. Nitrite Ql (U) Negative Normal [facility].; [employer]. Protein Ql (U) Negative Normal [facility].; [employer]. Laboratory - Chemistry and C hemistry - challengeon 07-03-2015 Albumin/Creatinine DL <= 20 mg/L (U) [Mass ratio] 30-300 mg/g Abnormal [place] [employer]. Creatinine (U) [Mass/Vol] 50 mg/dL Normal [place] [employer].; [employer]. Laboratory - Hematology and Cell countson 07-03-2015 HbA1c (Bld) [Mass fraction] 8.2 % Abnormal 4.6 - 7.1 % [facility].; [facility]. Laboratory - Urinalysison Protein Ql (U) 10mg/L Normal [facility].; [facility]. Laboratory - Chemistry and C hemistry - challengeon 02-27-2015 Albumin/Creatinine DL <= 20 mg/L (U) [Mass ratio] 30-300 mg/g Abnormal [facility]; [facility] Creatinine (U) [Mass/Vol] 300 mg/dL Normal [facility]; [place] [facility] Laboratory - Urinalysison Protein Ql (U) 80mg/L Normal [facility]; [place] [facility] Laboratory - Chemistry and C hemistry - challengeon 02-21-2015 Albumin [Mass/Vol] 4.1 g/dL Normal 3.4 - 4.8 g/dL [facility]; [facility] Albumin [Mass/Vol] 1.6 g/dL Normal 0.9 - 1.6 [facility]; [facility]. ALP [Catalytic activity/Vol] 92 U/L Normal 38 - 126 U/L [facility].; [facility] [facility], [facility]. ALT [Catalytic activity/Vol] 36 U/L Abnormal 8 - 35 U/L [facility].; [facility], [facility] ALT No additional P-5'-P [Catalytic activity/Vol] 36 U/L Abnormal 8 - 35 U/L [facility].; [place] [facility]. AST [Catalytic activity/Vol] 22 U/L Normal 13 - 39 U/L [facility].; [place] [facility]. Bilirubin [Mass/Vol] 0.5 mg/dL Normal 0.0 - 1 .5 mg/dL [facility].; [place] [facility], [facility]. Calcium [Mass/Vol] 9.2 mg/dL Normal 8.6 - 10. 2 mg/dL [facility].; [facility], [facility]. Chloride [Moles/Vol] 104 mmol/L Normal 98 - 10 7 mmol/L [facility].; [facility], [facility]. Cholesterol [Mass/Vol] 173 mg/dL Normal 0 - 2 00 mg/dL [facility].; [facility], [facility]. Cholesterol in HDL [Mass or moles/Vol] 40 mg/dL Normal 40 - 60 mg/dL [facility].; [facility], [facility] Cholesterol in LDL [Mass/Vol] 92 mg/dL Normal 0 - 129 mg/dL [facility], [facility].; [facility], [facility] Cholesterol.total/Ramonita sterol in HDL [Mass ratio] 4.3 {ratio} Normal 0.0 - 5.0 [facility]; [facility], [facility] CO2 [Moles/Vol] 29.0 mmol/L Normal 13.0 - 29.0 mmol/L [facility], [facility].; [facility], [facility] Comprehensive metabolic 2000 panel CMP with eGFR Normal [facility]; [facility], [facility] Creatinine [Mass/Vol] 0.7 mg/dL Normal 0.6 - 1.2 mg/dL [facility], [facility].; [facility], [facility]. GFR/1.73 sq M.predicted among blacks MDRD (S/P/Bld) [Vol rate/Area] mL/min/{1.73_m2} Normal 60 - 999 {ML/MINUTE} [facility], [facility].; [facility], [facility]. GFR/1.73 sq M.predicted MDRD (S/P/Bld) [Vol rate/Area] mL/min/{1.73_m2} Normal 60 - 999 {ML/MINUTE} [facility], [facility].; [facility], [facility]. Globulin (S) [Mass/Vol] 2.6 g/dL Normal 1.5 - 3.8 g/dL [facility].; [facility], [facility]. Glucose [Mass/Vol] 135 mg/dL Abnormal 74 - 106 mg/dL [facility], [facility].; [facility], [facility] Lipid 1996 panel LIPID PROFILE Normal [facility], [facility]; [facility], [facility] Potassium [Moles/Vol] 4.2 mmol/L Normal 3.5 - 5.1 mmol/L [facility].; [place] [facility] Protein [Mass/Vol] 6.7 g/dL Normal 6.4 - 8.3 g/dL [facility].; [place] [employer] Sodium [Moles/Vol] 140 mmol/L Normal 136 - 145 mmol/L [facility].; [place] [facility] Triglyceride [Mass/Vol] 205 mg/dL Abnormal 0 - 150 mg/dL [facility].; [place] [facility] Urea nitrogen [Mass/Vol] 15 mg/dL Normal 6 - 20 mg/dL [facility]; [place] [facility] Urea nitrogen/Creatinine [Mass ratio] 21 {ratio} Normal 0 - 30 {ratio} [facility].; [employer] Laboratory - Hematology and Cell countson 02-21-2015 HbA1c (Bld) [Mass fraction] 7.0 % Abnormal 4.4 - 6.4 % [facility]; [employer] No Panel Informationon 02-21 50 {years} Normal [facility]; [employer] Laboratory - Chemistry and C hemistry - challengeon 01-31-2015 Bilirubin Ql (U) small Abnormal [facility].; [place] [employer] Ketones Ql (U) Negative Normal [facility].; [place] [employer] pH (U) 5.5 [pH] Normal [facility].; [place] [employer]. Specific gravity (U) [Rel density] 1.030 Abnormal [facility].; [employer] Urobilinogen Qn (U) 0.2 mg/dL Normal [facility]; [place] [employer]. Laboratory - Hematology and Cell countson 01-31-2015 Hemoglobin (Bld) [Mass/Vol] 13.5 g/dL Normal 11.5 - 14.2 g/dL [facility].; [place] [employer] Hemoglobin Ql (U) Negative Normal [facility].; [employer]. Laboratory - Specimen inform ationon 01-31-2015 Appearance (U) clear Normal [facility].; [employer]. Color (U) yellow Normal [employer]. Laboratory - Urinalysison Glucose Test strip (U) [Mass/Vol] Negative Normal [employer].; [employer]. Leukocyte esterase Test strip Ql (U) Negative Normal [employer].; [employer]. Nitrite Ql (U) Negative Normal [facility].; [employer]. Protein Ql (U) 30 mg/dL Abnormal [facility].; [employer]. No Panel Informationon 01-31 Negative Normal [employer]. Laboratory - Chemistry and C hemistry - challengeon 11-15-2014 Albumin/Creatinine DL <= 20 mg/L (U) [Mass ratio] 30-300 mg/g Abnormal [employer] [employer]. Bilirubin Ql (U) Negative Normal [facility] [employer]. Creatinine (U) [Mass/Vol] 200 mg/dL Normal [place] [employer]. Ketones Ql (U) Negative Normal [facility].; [employer]. pH (U) 6.5 [pH] Normal [employer]. Specific gravity (U) [Rel density] 1.020 Normal [employer]. Urobilinogen Qn (U) 0.2 mg/dL Normal [facility] [employer]; [employer]. Laboratory - Hematology and Cell countson 11-15-2014 Hemoglobin Ql (U) trace, hemolyzed Abnormal [facility].; [employer]. Laboratory - Specimen inform ationon 11-15-2014 Appearance (U) clear Normal [facility].; [employer]. Color (U) yellow Normal [facility].; [place] [facility] Laboratory - Urinalysison Glucose Test strip (U) [Mass/Vol] Negative Normal [facility].; [place] [facility] Leukocyte esterase Test strip Ql (U) Negative Normal [facility].; [place] [employer] Nitrite Ql (U) Negative Normal [facility].; [place] [employer]. Protein Ql (U) 80mg/L Normal [facility].; [place] [employer]. Protein Ql (U) Negative Normal [facility].; [employer] [employer]. Laboratory - Hematology and Cell countson 08-27-2014 HbA1c (Bld) [Mass fraction] 7.4 % Abnormal 4.6 - 7.1 % [facility].; [place] [employer] Laboratory - Hematology and Cell countson 05-24-2014 HbA1c (Bld) [Mass fraction] 7.5 % Abnormal 4.6 - 7.1 % [facility].; [employer] [employer]. Laboratory - Hematology and Cell countson 02-28-2014 HbA1c (Bld) [Mass fraction] 6.4 % Normal 4.6 - 7.1 % [facility].; [place] [facility]. Laboratory - Chemistry and C hemistry - challengeon 02-17-2014 Albumin [Mass/Vol] 4.5 g/dL Normal 3.4 - 4.8 g/dL [facility].; [place] [facility]. Albumin [Mass/Vol] 1.6 g/dL Normal 0.9 - 1.6 [facility].; [employer] [employer]. ALP [Catalytic activity/Vol] 81 U/L Normal 38 - 126 U/L [facility].; [employer] [employer]. ALT [Catalytic activity/Vol] 28 U/L Normal 8 - 35 U/L [facility].; [employer] [employer]. ALT No additional P-5'-P [Catalytic activity/Vol] 28 U/L Normal 8 - 35 U/L [facility].; [employer] [employer]. AST [Catalytic activity/Vol] 23 U/L Normal 13 - 39 U/L [facility].; [facility], [facility] Bilirubin [Mass/Vol] 0.6 mg/dL Normal 0.0 - 1 .5 mg/dL [facility].; [facility], [facility]. Calcium [Mass/Vol] 9.4 mg/dL Normal 8.6 - 10. 2 mg/dL [facility].; [facility] Chloride [Moles/Vol] 104 mmol/L Normal 98 - 10 7 mmol/L [facility].; [facility] Cholesterol [Mass/Vol] 198 mg/dL Normal 0 - 2 00 mg/dL [facility]; [facility], [facility] Cholesterol in HDL [Mass or moles/Vol] 44 mg/dL Normal 40 - 60 mg/dL [facility]; [facility], [facility] Cholesterol in LDL [Mass/Vol] 127 mg/dL Normal 0 - 129 mg/dL [facility].; [facility], [facility] Cholesterol.total/Ramonita sterol in HDL [Mass ratio] 4.5 {ratio} Normal 0.0 - 5.0 [facility]; [facility], [facility] CO2 [Moles/Vol] 29.0 mmol/L Normal 13.0 - 29.0 mmol/L [facility]; [facility], [facility] Comprehensive metabolic 2000 panel CMP with eGFR Normal [facility]; [facility], [facility] Creatinine [Mass/Vol] 0.9 mg/dL Normal 0.6 - 1.2 mg/dL [facility].; [facility], [facility]. GFR/1.73 sq M.predicted among blacks MDRD (S/P/Bld) [Vol rate/Area] mL/min/{1.73_m2} Normal 60 - 999 {ML/MINUTE} [facility], [facility].; [facility], [facility]. GFR/1.73 sq M.predicted MDRD (S/P/Bld) [Vol rate/Area] mL/min/{1.73_m2} Normal 60 - 999 {ML/MINUTE} [facility].; [facility] Globulin (S) [Mass/Vol] 2.8 g/dL Normal 1.5 - 3.8 g/dL [facility].; [facility], [facility] Glucose [Mass/Vol] 98 mg/dL Normal 74 - 106 mg/dL [facility].; [facility] Lipid 1996 panel LIPID PROFILE Normal [facility]; [facility] Potassium [Moles/Vol] 4.2 mmol/L Normal 3.5 - 5.1 mmol/L [facility]; [facility], [facility] Protein [Mass/Vol] 7.3 g/dL Normal 6.4 - 8.3 g/dL [facility]; [facility], [facility] Sodium [Moles/Vol] 138 mmol/L Normal 136 - 145 mmol/L [facility].; [facility], [facility] Triglyceride [Mass/Vol] 135 mg/dL Normal 0 - 150 mg/dL [facility].; [place] [facility]. Urea nitrogen [Mass/Vol] 16 mg/dL Normal 6 - 20 mg/dL [facility].; [facility], [facility] Urea nitrogen/Creatinine [Mass ratio] 18 {ratio} Normal 0 - 30 {ratio} [facility].; [place] [employer], [facility] No Panel Informationon 02-17 49 {years} Normal [facility]; [place] [facility] Laboratory - Chemistry and C hemistry - challengeon 08-30-2013 Albumin/Creatinine DL <= 20 mg/L (U) [Mass ratio] mg/g Normal [facility].; [place] [facility] Creatinine (U) [Mass/Vol] 200 mg/dL Normal [facility].; [place] [facility], [facility]. Laboratory - Hematology and Cell countson 08-30-2013 HbA1c (Bld) [Mass fraction] 6.5 % Normal 4.6 - 7.1 % [facility].; [place] [employer], [facility]. Laboratory - Urinalysison Protein Ql (U) 10mg/dl Normal [facility]; [facility] Laboratory - Chemistry and C hemistry - challengeon 07-07-2013 TSH Qn 0.81 m[IU]/L Normal 0.40 - 4.50 {mIU/L} [facility].; [place] [facility], [employer] Office Visiton 06-08-2013 Colonoscopy (procedure) Abnormal Invalid Interpretation Code [facility] Work Phone: Laboratory - Hematology and Cell countson 04-26-2013 HbA1c (Bld) [Mass fraction] 7.1 % Normal 4.6 - 7.1 % [facility].; [facility] Laboratory - Chemistry and C hemistry - challengeon 01-21-2013 Albumin [Mass/Vol] 4.3 g/dL Normal 3.5 - 5.0 g/dL [facility].; [place] [employer], [facility] Albumin/Globulin [Mass ratio] 1.8 {ratio} Abnormal [facility]; [place] [facility] ALP [Catalytic activity/Vol] 112 U/L Normal 50 - 136 U/L [facility] [facility].; [place] [employer], [employer]. ALT [Catalytic activity/Vol] 35 mmol/L Normal 12 - 49 mmol/L [facility].; [place] [employer], [employer]. AST [Catalytic activity/Vol] 28 U/L Normal 15 - 37 U/L [facility], [facility].; [place] [employer], [employer]. Bilirubin [Mass/Vol] 0.3 mg/dL Normal 0.3 - 1 .0 mg/dL [facility].; [place] [employer], [employer]. Calcium [Mass/Vol] 9.2 mg/dL Normal 8.4 - 10. 6 mg/dL [facility], [facility].; [place] [employer], [employer]. Chloride [Moles/Vol] 108 mmol/L Normal 98 - 11 0 mmol/L [facility], [facility].; [place] [employer] Cholesterol [Mass/Vol] 189 mg/dL Normal 0 - 2 00 mg/dL [facility], [facility].; [place] [employer], [employer]. Cholesterol in HDL [Mass/Vol] 40 mg/dL Normal 40 - 60 mg/dL [facility].; [facility]. Cholesterol in LDL [Mass/Vol] 121 mg/dL Abnormal 0 - 100 mg/dL [facility].; [facility]. Cholesterol in VLDL [Mass/Vol] - Normal [facility].; [facility]. Cholesterol.total/Ramonita sterol in HDL [Mass ratio] 4.7 {ratio} Normal 0 - 5.0 [facility].; [facility]. CO2 [Moles/Vol] 29.0 {freeman/L} Normal 22.0 - 32.0 {freeman/L} [facility].; [facility], [facility]. Creatinine [Mass/Vol] 0.7 mg/dL Normal 0.6 - 1.4 mg/dL [facility].; [place] [facility]. Globulin (S) [Mass/Vol] 2.4 g/dL Normal 1.5 - 3.8 g/dL [facility].; [place] [facility], [facility]. Glucose [Mass/Vol] 107 mg/dL Abnormal 75 - 105 mg/dL [facility].; [facility], [facility]. Potassium [Moles/Vol] 4.3 mmol/L Normal 3.50 - 5.00 meq/L [facility].; [facility], [facility]. Protein [Mass/Vol] 6.7 g/dL Normal 6.4 - 8.2 g/dL [facility], [facility].; [place] [facility], [facility]. Sodium [Moles/Vol] 142 mmol/L Normal 136 - 145 mmol/L [facility].; [place] [employer], [facility]. Triglyceride [Mass/Vol] 140 mg/dL Normal 40 - 150 mg/dL [facility], [facility].; [place] [facility], [facility]. Urea nitrogen [Mass/Vol] 16 mg/dL Normal 7.0 - 20.0 mg/dL [facility].; [place] [facility], [facility]. Urea nitrogen/Creatinine [Mass ratio] 23 mg/mg Normal 0 - 30 [facility].; [place] [employer], [facility]. Laboratory - Hematology and Cell countson 01-21-2013 HbA1c (Bld) [Mass fraction] 6.4 % Normal 4.6 - 7.1 % [facility]; [place] [facility] No Panel Informationon 01-21 89 Normal [facility]; [facility]. - Normal [facility]; [place] [facility] Laboratory - Chemistry and C hemistry - challengeon 09-08-2012 Albumin/Creatinine DL <= 20 mg/L (U) [Mass ratio] normal Normal [facility]; [place] [employer] Creatinine (U) [Mass/Vol] 50 mg/dL Normal [facility]; [place] [employer] Laboratory - Urinalysison Protein Ql (U) Negative Normal [facility]; [place] [facility] Laboratory - Chemistry and C hemistry - challengeon 08-20-2012 Albumin [Mass/Vol] 4.3 g/dL Normal 3.5 - 5.0 g/dL [facility].; [place] [employer] Albumin/Globulin [Mass ratio] 1.9 {ratio} Abnormal [facility]; [place] [facility]. ALP [Catalytic activity/Vol] 124 U/L Normal 50 - 136 U/L [facility].; [place] [facility], [facility]. ALT [Catalytic activity/Vol] 40 mmol/L Normal 12 - 49 mmol/L [facility]; [place] [employer]. AST [Catalytic activity/Vol] 28 U/L Normal 15 - 37 U/L [facility].; [place] [facility]. Bilirubin [Mass/Vol] 0.4 mg/dL Normal 0.3 - 1 .0 mg/dL [facility].; [place] [employer]. Calcium [Mass/Vol] 9.2 mg/dL Normal 8.4 - 10. 6 mg/dL [place] [facility].; [place] [employer], [employer]. Chloride [Moles/Vol] 107 mmol/L Normal 98 - 11 0 mmol/L [facility].; [place] [employer], [employer]. Cholesterol [Mass/Vol] 163 mg/dL Normal 0 - 2 00 mg/dL [facility].; [facility], [facility]. Cholesterol in HDL [Mass/Vol] 40 mg/dL Normal 40 - 60 mg/dL [facility], [facility].; [facility], [facility]. Cholesterol in LDL [Mass/Vol] 69 mg/dL Normal 50.0 - 130.0 mg/dL [facility], [facility].; [facility], [facility]. Cholesterol in VLDL [Mass/Vol] - Normal [facility].; [facility], [facility]. Cholesterol.total/Ramonita sterol in HDL [Mass ratio] 4.1 {ratio} Normal 0 - 5.0 [facility], [facility].; [facility], [facility]. CO2 [Moles/Vol] 28.0 {freeman/L} Normal 22.0 - 32.0 {freeman/L} [facility], [facility].; [facility], [facility]. Creatinine [Mass/Vol] 0.8 mg/dL Normal 0.6 - 1.4 mg/dL [facility], [facility].; [facility], [facility]. Globulin (S) [Mass/Vol] 2.3 g/dL Normal 1.5 - 3.8 g/dL [facility].; [facility], [facility]. Glucose [Mass/Vol] 115 mg/dL Abnormal 75 - 105 mg/dL [facility], [facility].; [facility], [facility]. Potassium [Moles/Vol] 4.5 mmol/L Normal 3.50 - 5.00 meq/L [facility], [facility].; [facility], [facility]. Protein [Mass/Vol] 6.6 g/dL Normal 6.4 - 8.2 g/dL [facility], [facility].; [place] [facility], [facility]. Sodium [Moles/Vol] 143 mmol/L Normal 136 - 145 mmol/L [facility], [facility].; [facility], [facility]. Triglyceride [Mass/Vol] 269 mg/dL Abnormal 40 - 150 mg/dL [facility], [facility].; [facility], [facility]. Urea nitrogen [Mass/Vol] 14 mg/dL Normal 7.0 - 20.0 mg/dL [facility], [facility].; [facility], [facility]. Urea nitrogen/Creatinine [Mass ratio] 18 mg/mg Normal 0 - 30 [facility].; [facility] Laboratory - Hematology and Cell countson 08-20-2012 HbA1c (Bld) [Mass fraction] 7.3 % Abnormal 4.6 - 7.1 % [facility].; [place] [employer] No Panel Informationon 08-20 - Normal [facility].; [place] [employer] Laboratory - Hematology and Cell countson 03-30-2012 HbA1c (Bld) [Mass fraction] 7.2 % Abnormal 4.6 - 7.1 % [facility].; [place] [employer]. Laboratory - Hematology and Cell countson 12-30-2011 HbA1c (Bld) [Mass fraction] 6.5 % Normal 4.6 - 7.1 % [place] [facility].; [place] [employer]. Laboratory - Chemistry and C hemistry - challengeon 12-19-2011 Albumin [Mass/Vol] 5.0 g/dL Normal 3.5 - 5.0 g/dL [facility].; [place] [employer]. Albumin/Globulin [Mass ratio] 1.9 {ratio} Abnormal [facility].; [place] [employer]. ALP [Catalytic activity/Vol] 108 U/L Normal 50 - 136 U/L [facility].; [place] [employer], [employer]. ALT [Catalytic activity/Vol] 33 mmol/L Normal 12 - 49 mmol/L [facility].; [place] [employer]. AST [Catalytic activity/Vol] 27 U/L Normal 15 - 37 U/L [facility].; [place] [employer]. Bilirubin [Mass/Vol] 0.4 mg/dL Normal 0.3 - 1 .0 mg/dL [place] [facility].; [place] [employer], [employer]. Calcium [Mass/Vol] 10.1 mg/dL Normal 8.4 - 10. 6 mg/dL [place] [facility].; [place] [employer], [employer]. Chloride [Moles/Vol] 107 mmol/L Normal 98 - 11 0 mmol/L [facility].; [place] [employer], [employer]. Cholesterol [Mass/Vol] 216 mg/dL Abnormal 0 - 2 00 mg/dL [facility].; [employer]. Cholesterol in HDL [Mass/Vol] 46 mg/dL Normal 40 - 60 mg/dL [facility].; [facility]. Cholesterol in LDL [Mass/Vol] 145 mg/dL Abnormal 50.0 - 130.0 mg/dL [facility].; [facility], [facility]. Cholesterol.total/Ramonita sterol in HDL [Mass ratio] 4.7 {ratio} Normal 0 - 5.0 [facility].; [facility]. CO2 [Moles/Vol] 28.0 {freeman/L} Normal 22.0 - 32.0 {freeman/L} [facility].; [facility], [facility]. Creatinine [Mass/Vol] 0.9 mg/dL Normal 0.6 - 1.4 mg/dL [facility].; [facility], [facility]. Globulin (S) [Mass/Vol] 2.6 g/dL Normal 1.5 - 3.8 g/dL [facility].; [facility], [facility]. Glucose [Mass/Vol] 97 mg/dL Normal 75 - 105 mg/dL [facility].; [facility], [facility]. Potassium [Moles/Vol] 4.7 mmol/L Normal 3.50 - 5.00 meq/L [facility].; [facility], [facility]. Protein [Mass/Vol] 7.6 g/dL Normal 6.4 - 8.2 g/dL [facility], [facility].; [facility], [facility]. Sodium [Moles/Vol] 143 mmol/L Normal 136 - 145 mmol/L [facility].; [facility], [facility]. Triglyceride [Mass/Vol] 124 mg/dL Normal 40 - 150 mg/dL [facility].; [facility], [facility]. Urea nitrogen [Mass/Vol] 18 mg/dL Normal 7.0 - 20.0 mg/dL [facility].; [facility], [facility]. Urea nitrogen/Creatinine [Mass ratio] 20 mg/mg Normal 0 - 30 [facility].; [facility], [facility]. Laboratory - Chemistry and C hemistry - challengeon 08-27-2011 Albumin/Creatinine DL <= 20 mg/L (U) [Mass ratio] <30mg/d Normal [employer]. Creatinine (U) [Mass/Vol] 300 mg/dL Normal [employer]. Laboratory - Urinalysison Protein Ql (U) 30 mg/dL Abnormal [facility] [employer]; [employer] No Panel Informationon 08-18 Negative Normal [employer].; [employer]. 1000 Normal [employer].; [employer]. normal Normal [employer].; [employer]. 275 Normal [employer].; [employer]. 248 Normal [employer].; [employer]. 235 Normal [employer].; [employer]. 153 Normal [employer].; [employer]. Laboratory - Hematology and Cell countson 08-12-2011 HbA1c (Bld) [Mass fraction] 7.5 % Abnormal 4.6 - 7.1 % [place] [employer].; [employer]. Laboratory - Chemistry and C hemistry - challengeon 08-08-2011 Albumin [Mass/Vol] 4.5 g/dL Normal 3.5 - 5.0 g/dL [place] [employer].; [employer]. Albumin/Globulin [Mass ratio] 1.9 {ratio} Abnormal [employer].; [employer]. ALP [Catalytic activity/Vol] 130 U/L Normal 50 - 136 U/L [employer].; [employer]. ALT [Catalytic activity/Vol] 39 mmol/L Normal 12 - 49 mmol/L [employer].; [employer]. AST [Catalytic activity/Vol] 28 U/L Normal 15 - 37 U/L [employer].; [employer], [employer]. Bilirubin [Mass/Vol] 0.4 mg/dL Normal 0.3 - 1 .0 mg/dL [employer].; [employer]. Calcium [Mass/Vol] 9.4 mg/dL Normal 8.4 - 10. 6 mg/dL [facility].; [facility]. Chloride [Moles/Vol] 114 mmol/L Abnormal 98 - 11 0 mmol/L [facility].; [facility], [facility]. Cholesterol [Mass/Vol] 190 mg/dL Normal 0 - 2 00 mg/dL [facility], [facility].; [facility], [facility]. Cholesterol in HDL [Mass/Vol] 43 mg/dL Normal 40 - 60 mg/dL [facility].; [facility], [facility]. Cholesterol in LDL [Mass/Vol] 96 mg/dL Normal 50.0 - 130.0 mg/dL [facility].; [facility], [facility] Cholesterol.total/Ramonita sterol in HDL [Mass ratio] 4.4 {ratio} Normal 0 - 5.0 [facility].; [facility] CO2 [Moles/Vol] 30.0 {freeman/L} Normal 22.0 - 32.0 {freeman/L} [facility].; [place] [facility], [facility]. Creatinine [Mass/Vol] 0.7 mg/dL Normal 0.6 - 1.4 mg/dL [facility].; [facility], [facility]. Globulin (S) [Mass/Vol] 2.4 g/dL Normal 1.5 - 3.8 g/dL [facility], [facility].; [facility], [facility]. Glucose [Mass/Vol] 141 mg/dL Abnormal 75 - 105 mg/dL [facility].; [facility], [facility]. Potassium [Moles/Vol] 4.8 mmol/L Normal 3.50 - 5.00 meq/L [facility], [facility].; [facility], [facility]. Protein [Mass/Vol] 6.9 g/dL Normal 6.4 - 8.2 g/dL [facility], [facility].; [facility], [facility]. Sodium [Moles/Vol] 149 mmol/L Abnormal 136 - 145 mmol/L [facility], [facility].; [facility], [facility]. Triglyceride [Mass/Vol] 254 mg/dL Abnormal 40 - 150 mg/dL [facility].; [facility]. Urea nitrogen [Mass/Vol] 11 mg/dL Normal 7.0 - 20.0 mg/dL [facility].; [facility], [facility] Urea nitrogen/Creatinine [Mass ratio] 16 mg/mg Normal 0 - 30 [facility].; [facility], [facility] Laboratory - Chemistry and C hemistry - challengeon 08-16-2010 Albumin [Mass/Vol] 4.4 g/dL Normal 3.5 - 5.0 g/dL [facility].; [facility], [facility] Albumin/Globulin [Mass ratio] 1.8 {ratio} Abnormal [facility].; [facility] ALP [Catalytic activity/Vol] 111 U/L Normal 50 - 136 U/L [facility].; [facility], [facility]. ALT [Catalytic activity/Vol] 22 mmol/L Normal 12 - 49 mmol/L [facility].; [facility], [facility]. AST [Catalytic activity/Vol] 23 U/L Normal 15 - 37 U/L [facility].; [facility], [facility]. Bilirubin [Mass/Vol] 0.4 mg/dL Normal 0.3 - 1 .0 mg/dL [facility].; [facility], [facility]. Calcium [Mass/Vol] 9.5 mg/dL Normal 8.2 - 10. 2 mg/dL [facility].; [facility], [facility]. Chloride [Moles/Vol] 106 mmol/L Normal 97.0 - 107.0 meq/L [facility].; [facility]. Cholesterol [Mass/Vol] 201 mg/dL Abnormal 0 - 2 00 mg/dL [facility].; [facility], [facility]. Cholesterol in HDL [Mass/Vol] 48 mg/dL Normal 40 - 60 mg/dL [facility].; [facility], [facility]. Cholesterol in LDL [Mass/Vol] 115 mg/dL Abnormal 0 - 100 mg/dL [facility], [facility].; [facility], [facility]. Cholesterol.total/Ramonita sterol in HDL [Mass ratio] 4.2 {ratio} Normal 0 - 5.0 [facility], [facility].; [facility], [facility]. CO2 [Moles/Vol] 28.0 mmol/L Normal [facility], [facility]. Creatinine [Mass/Vol] 0.7 mg/dL Abnormal 0.8 - 1.4 mg/dL [facility], [facility].; [facility], [facility]. Globulin (S) [Mass/Vol] 2.4 g/dL Normal 1.5 - 3.8 g/dL [facility], [facility].; [facility], [facility]. Glucose [Mass/Vol] 90 mg/dL Normal 75 - 105 mg/dL [facility], [facility].; [facility], [facility]. Potassium [Moles/Vol] 4.3 mmol/L Normal 3.5 - 5 meq/L [facility], [facility].; [facility], [facility]. Protein [Mass/Vol] 6.8 g/dL Normal 6.4 - 8.2 g/dL [facility], [facility].; [facility], [facility]. Sodium [Moles/Vol] 139 mmol/L Normal 136 - 145 mmol/L [facility], [facility].; [facility], [facility]. Triglyceride [Mass/Vol] 191 mg/dL Abnormal 0 - 150 mg/dL [facility], [facility].; [facility], [facility]. Urea nitrogen [Mass/Vol] 14 mg/dL Normal 7.0 - 20.0 mg/dL [facility], [facility].; [facility], [facility]. Urea nitrogen/Creatinine [Mass ratio] 20 mg/mg Normal 0 - 30 [facility].; [facility], [facility]. Vital Signs Date Time Vital Sign Value Performing Clinician Facility 03-07-2025 08:35-0400 Body mass index (BMI) [Ratio] 30.05 kg/m2 Raissa Griffith APRN.CNP Work Phone: [facility] 03-07-2025 08:35-0400 Body temperature 97.5 [degF] Raissa Griffith APRN.CNP Work Phone: [facility] 03-07-2025 08:35-0400 Body weight 82.2 kg Raissa Griffith APRN.CNP Work Phone: [facility] 03-07-2025 08:35-0400 Diastolic blood pressure 78 mm[Hg] Raissa Griffith PAINTING MANAGER.POWER TRANSFORMER REPAIRER Work Phone: [facility] 03-07-2025 08:35-0400 Heart rate 82 /min Raissa Griffith PAINTING MANAGER.POWER TRANSFORMER REPAIRER Work Phone: [facility] 03-07-2025 08:35-0400 Respiratory rate 16 /min Raissa Griffith PAINTING MANAGER.POWER TRANSFORMER REPAIRER Work Phone: [facility] 03-07-2025 08:35-0400 SaO2% (BldA) [Mass fraction] 99 % Raissa Griffith PAINTING MANAGER.POWER TRANSFORMER REPAIRER Work Phone: [facility] 03-07-2025 08:35-0400 Systolic blood pressure 128 mm[Hg] Raissa Griffith PAINTING MANAGER.POWER TRANSFORMER REPAIRER Work Phone: [facility] 02-23-2025 09:00-0400 Body height 168.91 cm Dania Michel MA [facility], [facility].; [facility], [facility]. 02-23-2025 09:00-0400 Body mass index (BMI) [Ratio] 28.46 kg/m2 Dania Michel MA [facility], [facility].; [facility], [facility]. 02-23-2025 09:00-0400 Body surface area Derived from formula 1.92 m2 Dania Michel MA [facility], [facility].; [facility], [facility]. 02-23-2025 09:00-0400 Body weight 81.19 kg Dania Michel MA [facility].; [employer], [facility]. 02-23-2025 09:00-0400 Diastolic blood pressure 74 mm[Hg] Dania Michel MA [facility], [facility].; [facility], [facility]. 02-23-2025 09:00-0400 Heart rate 92 /min Dania Michel MA [facility], [facility].; [facility], [facility]. 02-23-2025 09:00-0400 Systolic blood pressure 109 mm[Hg] Dania Michel MA [facility], [facility].; [employer] 12-27-2024 10:38-0500 Body height 168.91 cm Itzel Piyush SIBLEY [facility].; [employer]. 12-27-2024 10:38-0500 Body mass index (BMI) [Ratio] 27.71 kg/m2 Itzel Piyush SIBLEY [facility], Inc.; [employer] 12-27-2024 10:38-0500 Body surface area Derived from formula 1.9 m2 Itzel Pickett MA [place] [facility] Inc.; [employer] [facility]. 12-27-2024 10:38-0500 Body weight 79.07 kg Itzel Piyush SIBLEY [facility].; [facility]. 12-27-2024 10:38-0500 Diastolic blood pressure 91 mm[Hg] Itzel Pickett MA [place] [facility].; [employer]. 12-27-2024 10:38-0500 Heart rate 86 /min Itzel Pickett MA [place] [facility].; [employer]. 12-27-2024 10:38-0500 Systolic blood pressure 145 mm[Hg] Itzel Pickett MA [facility].; [employer]. 08-25-2024 15:55-0400 Body height 168.91 cm Dania Michel MA [place] [facility].; [employer]. 08-25-2024 15:55-0400 Body mass index (BMI) [Ratio] 28.3 kg/m2 Dania Michel MA [place] [facility].; [employer]. 08-25-2024 15:55-0400 Body surface area Derived from formula 1.91 m2 Dania Michel MA [employer]. 08-25-2024 15:55-0400 Body weight 80.74 kg Dania Michel MA [employer]. 08-25-2024 15:55-0400 Diastolic blood pressure 80 mm[Hg] Dania Michel MA [employer].; [employer]. 08-25-2024 15:55-0400 Heart rate 82 /min Dania Michel MA [facility], [facility].; [facility], [facility]. 08-25-2024 15:55-0400 Systolic blood pressure 119 mm[Hg] Dania Michel MA [facility], [facility].; [facility], [facility]. 07-11-2024 09:18-0400 Body height 165.4 cm Rupali Sage APRN.POWER TRANSFORMER REPAIRER Work Phone: [facility] 07-11-2024 09:18-0400 Body mass index (BMI) [Ratio] 29.22 kg/m2 Rupali Sage APRN.POWER TRANSFORMER REPAIRER Work Phone: [facility] 07-11-2024 09:18-0400 Body weight 79.92 kg Rupali Sage APRN.POWER TRANSFORMER REPAIRER Work Phone: [facility] 07-11-2024 09:18-0400 Diastolic blood pressure 76 mm[Hg] Rupali Sage APRN.POWER TRANSFORMER REPAIRER Work Phone: [facility] 07-11-2024 09:18-0400 Respiratory rate 16 /min Rupali Sage APRN.POWER TRANSFORMER REPAIRER Work Phone: [facility] 07-11-2024 09:18-0400 Systolic blood pressure 122 mm[Hg] Rupali Sage APRN.POWER TRANSFORMER REPAIRER Work Phone: [facility] 02-18-2024 09:04-0400 Body height 168.91 cm Dania Michel MA [facility], [facility].; [facility], [facility]. 02-18-2024 09:04-0400 Body mass index (BMI) [Ratio] 28.46 kg/m2 Dania Michel MA [facility], [facility].; [facility], [facility]. 02-18-2024 09:04-0400 Body surface area Derived from formula 1.92 m2 Dania Michel MA [facility], [facility].; [facility], [facility]. 02-18-2024 09:04-0400 Body weight 81.19 kg Dania Michel MA [facility], [facility].; [facility], [facility]. 02-18-2024 09:04-0400 Diastolic blood pressure 81 mm[Hg] Dania Michel MA [facility], [facility].; [facility]. 02-18-2024 09:04-0400 Heart rate 96 /min Dania Michel MA [facility].; [facility]. 02-18-2024 09:04-0400 Systolic blood pressure 119 mm[Hg] Dania Michel MA [facility], [facility].; [facility], [facility]. 12-22-2023 11:53-0500 Body height 165.1 cm [facility] 11-12-2023 11:28-0500 Body temperature 97 [degF] [facility] 11-12-2023 11:28-0500 Diastolic blood pressure 85 mm[Hg] [facility] 11-12-2023 11:28-0500 Heart rate 93 /min [facility] 11-12-2023 11:28-0500 Respiratory rate 16 /min [facility] 11-12-2023 11:28-0500 SaO2% (BldA) [Mass fraction] 94 % [facility] 11-12-2023 11:28-0500 Systolic blood pressure 134 mm[Hg] [facility] 11-12-2023 10:00-0500 Inhaled oxygen flow rate 2 L/min [facility] 11-12-2023 06:26-0500 Body height 165.1 cm [facility] 11-12-2023 06:26-0500 Body mass index (BMI) [Ratio] 28.7 kg/m2 [facility] 11-12-2023 06:26-0500 Body weight 78.3 kg [facility] 10-19-2023 15:50-0500 Body height 168.91 cm Itzel Pickett MA [facility], [facility].; [facility]. 10-19-2023 15:50-0500 Body mass index (BMI) [Ratio] 27.5 kg/m2 Itzel Pickett MA [facility], [facility].; [facility], [facility]. 10-19-2023 15:50-0500 Body surface area Derived from formula 1.89 m2 Itzel Pickett MA [facility], [facility].; [facility], Inc[employer] 10-19-2023 15:50-0500 Body weight 78.47 kg Itzel Pickett MA [place] [facility].; [employer]. 10-19-2023 15:50-0500 Diastolic blood pressure 79 mm[Hg] Itzel Pickett MA [place] [facility].; [employer] 10-19-2023 15:50-0500 Heart rate 91 /min Itzel Pickett MA [employer].; [employer]. 10-19-2023 15:50-0500 Systolic blood pressure 121 mm[Hg] Itzel Pickett MA [employer].; [employer]. 08-06-2023 15:48-0400 Body weight 80.97 kg Itzel Pickett MA [place] [facility] Inc.; [employer]. 08-06-2023 15:48-0400 Diastolic blood pressure 85 mm[Hg] Itzel Pickett MA [place] [facility].; [employer]. 08-06-2023 15:48-0400 Heart rate 80 /min Itzel Pickett MA [facility].; [employer]. 08-06-2023 15:48-0400 Systolic blood pressure 127 mm[Hg] Itzel Pickett MA [employer].; [employer] 05-10-2023 09:37-0400 Body height 166.4 cm Rupali Sage APRN.POWER TRANSFORMER REPAIRER Work Phone: [facility] 05-10-2023 09:37-0400 Body weight 83.01 kg Rupali Sage APRN.POWER TRANSFORMER REPAIRER Work Phone: [facility] 05-10-2023 09:37-0400 Diastolic blood pressure 82 mm[Hg] Rupali Sage APRN.POWER TRANSFORMER REPAIRER Work Phone: [facility] 05-10-2023 09:37-0400 Systolic blood pressure 132 mm[Hg] Rupali Sage APRN.POWER TRANSFORMER REPAIRER Work Phone: [facility] 01-28-2023 09:28-0400 Body height 168.91 cm Chely Vilchis MA [facility], [facility].; [facility]. 01-28-2023 09:28-0400 Body mass index (BMI) [Ratio] 29.25 kg/m2 Chely Vilchis MA [facility].; [facility]. 01-28-2023 09:28-0400 Body surface area Derived from formula 1.94 m2 Chely Vilchis MA [facility].; [facility]. 01-28-2023 09:28-0400 Body weight 83.46 kg Chely Viclhis MA [facility].; [facility] 01-28-2023 09:28-0400 Diastolic blood pressure 77 mm[Hg] Chely Vilchis MA [facility].; [facility]. 01-28-2023 09:28-0400 Heart rate 89 /min Chely Vilchis MA [facility].; [facility] 01-28-2023 09:28-0400 Systolic blood pressure 110 mm[Hg] Chely Vilchis MA [facility].; [facility]. 10-09-2022 15:22-0500 Diastolic blood pressure 84 mm[Hg] [facility] 10-09-2022 15:22-0500 Heart rate 82 /min [facility] 10-09-2022 15:22-0500 Respiratory rate 18 /min [facility] 10-09-2022 15:22-0500 SaO2% (BldA) [Mass fraction] 100 % [facility] 10-09-2022 15:22-0500 Systolic blood pressure 133 mm[Hg] [facility] 10-09-2022 14:11-0500 Body temperature 97.1 [degF] [facility] 10-09-2022 08:42-0500 Body height 165.1 cm [facility] 10-09-2022 08:42-0500 Body mass index (BMI) [Ratio] 30.1 kg/m2 [facility] 10-09-2022 08:42-0500 Body weight 82.1 kg [facility] 08-13-2022 15:48-0400 Body height 168.91 cm Valerie Snow LPN [facility], [facility].; [facility], [facility]. 08-13-2022 15:48-0400 Body mass index (BMI) [Ratio] 29.89 kg/m2 Valerie [facility].; [place] [facility] 08-13-2022 15:48-0400 Body surface area Derived from formula 1.96 m2 [facility], [facility].; [facility] 08-13-2022 15:48-0400 Body weight 85.28 kg Valerie [facility], [facility].; [employer]. 08-13-2022 15:48-0400 Diastolic blood pressure 78 mm[Hg] Valerie [facility], [facility].; [place] [facility] 08-13-2022 15:48-0400 Heart rate 94 /min Valerie [facility], [facility].; [facility] 08-13-2022 15:48-0400 Systolic blood pressure 118 mm[Hg] Valeriejon Snow [facility], [facility].; [facility] 01-28-2022 10:23-0400 Body height 168.91 cm Valerie [facility], [facility].; [place] [facility] 01-28-2022 10:23-0400 Body mass index (BMI) [Ratio] 27.66 kg/m2 Valeriejon [facility], [facility].; [place] [employer] 01-28-2022 10:23-0400 Body surface area Derived from formula 1.9 m2 Valeriejon Snow [facility], [facility].; [employer]. 01-28-2022 10:23-0400 Body weight 78.93 kg Valerie [facility], [facility].; [employer] 01-28-2022 10:23-0400 Diastolic blood pressure 88 mm[Hg] Valerie [facility], [facility].; [employer]. 01-28-2022 10:23-0400 Heart rate 88 /min Valerie Snow LPN [facility].; [facility]. 01-28-2022 10:23-0400 Systolic blood pressure 125 mm[Hg] Valerie Snow LPN [facility].; [facility]. 12-02-2021 08:48-0500 Body height 168.91 cm Damari Tijerina RN [facility].; [facility]. 12-02-2021 08:48-0500 Body mass index (BMI) [Ratio] 27.82 kg/m2 Damari [facility]ijerina RN [facility].; [facility]. 12-02-2021 08:48-0500 Body surface area Derived from formula 1.9 m2 Damari Tijerina RN [place] [facility].; [employer]. 12-02-2021 08:48-0500 Body temperature 98.4 [degF] Damari Tijerina RN [place] [facility].; [employer]. 12-02-2021 08:48-0500 Body weight 79.38 kg Damari Tijerina RN [place] [facility].; [facility]. 12-02-2021 08:48-0500 Diastolic blood pressure 81 mm[Hg] Damari Tijerina RN [place] [facility].; [employer]. 12-02-2021 08:48-0500 Heart rate 85 /min Damari Tijerina RN [place] [facility].; [employer]. 12-02-2021 08:48-0500 Inhaled oxygen concentration 20 % Damari Tijerina RN [place] [facility].; [employer]. 12-02-2021 08:48-0500 Inhaled oxygen concentration 21 % Damari Tijreina RN [place] [facility].; [employer]. 12-02-2021 08:48-0500 SaO2% (BldA) [Mass fraction] 98 % Damari Tijerina RN [place] [facility].; [facility], [facility]. 12-02-2021 08:48-0500 Systolic blood pressure 124 mm[Hg] Damari Tijerina RN [facility], [facility].; [facility], [facility]. 07-17-2021 13:20-0400 Body height 168.91 cm Avril Andersen MA [facility], Inc.; [facility], [facility]. 07-17-2021 13:20-0400 Body mass index (BMI) [Ratio] 29.25 kg/m2 Avril Andersen MA [facility], Inc.; [facility], [facility]. 07-17-2021 13:20-0400 Body surface area Derived from formula 1.94 m2 Avril Andersen MA [facility], [facility].; [place] [facility], [facility]. 07-17-2021 13:20-0400 Body weight 83.46 kg Avril Andersen MA [facility], [facility].; [place] [facility], [facility]. 07-17-2021 13:20-0400 Diastolic blood pressure 78 mm[Hg] Avril Andersen MA [facility], [facility].; [place] [facility], [facility]. 07-17-2021 13:20-0400 Heart rate 84 /min Avril Andersen MA [facility], [facility].; [place] [facility], [facility]. 07-17-2021 13:20-0400 Systolic blood pressure 113 mm[Hg] Avril Andersen MA [facility], [facility].; [facility], [facility]. 04-15-2021 14:24-0400 Body height 168.91 cm Avril Andersen MA [facility], [facility].; [place] [facility], [facility]. 04-15-2021 14:24-0400 Body mass index (BMI) [Ratio] 29.89 kg/m2 Avril Andersen MA [facility], [facility].; [place] [facility], [facility]. 04-15-2021 14:24-0400 Body surface area Derived from formula 1.96 m2 Avril Andersen MA [facility], [facility].; [place] [facility], [facility]. 04-15-2021 14:24-0400 Body weight 85.28 kg Avril Andersen MA [facility], [facility].; [place] [facility]. 04-15-2021 14:24-0400 Diastolic blood pressure 81 mm[Hg] Avril Andersen MA [facility], [facility].; [facility]. 04-15-2021 14:24-0400 Heart rate 83 /min Avril Andersen MA [facility], [facility].; [facility]. 04-15-2021 14:24-0400 Systolic blood pressure 116 mm[Hg] Avril Andersen MA [facility], [facility].; [facility]. 03-24-2021 13:55-0400 Body height 168.91 cm Neilee L Vess C.O.D. CLERK [facility], [facility].; [facility]. 03-24-2021 13:55-0400 Body mass index (BMI) [Ratio] 30.21 kg/m2 Neilee L Vess C.O.D. CLERK [facility], [facility].; [facility], [facility]. 03-24-2021 13:55-0400 Body surface area Derived from formula 1.97 m2 Neilee L Vess C.O.D. CLERK [place] [facility].; [employer]. 03-24-2021 13:55-0400 Body weight 86.18 kg Neilee L Vess C.O.D. CLERK [place] [facility], [facility].; [employer], [facility]. 03-24-2021 13:55-0400 Diastolic blood pressure 88 mm[Hg] Neilee L Vess C.O.D. CLERK [place] [facility], [facility].; [employer], [facility]. 03-24-2021 13:55-0400 Heart rate 88 /min Neilee L Vess C.O.D. CLERK [place] [facility], [facility].; [employer], [facility]. 03-24-2021 13:55-0400 Systolic blood pressure 152 mm[Hg] Neilee L Vess C.O.D. CLERK [facility], [facility].; [employer] [facility]. 2021 09:12-0500 Body height 168.91 cm Neilee L Vess C.O.D. CLERK [place] [facility].; [employer] [facility]. 2021 09:12-0500 Body mass index (BMI) [Ratio] 30.05 kg/m2 Neilee L Vess C.O.D. CLERK [facility].; [employer]. 2021 09:12-0500 Body surface area Derived from formula 1.96 m2 Neilee L Vess C.O.D. CLERK [facility].; [facility]. 2021 09:12-0500 Body weight 85.73 kg Neilee L Vess C.O.D. CLERK [facility].; [employer] [facility]. 2021 09:12-0500 Diastolic blood pressure 84 mm[Hg] Neilee L Vess C.O.D. CLERK [facility].; [facility]. 2021 09:12-0500 Heart rate 83 /min Neilee L Vess C.O.D. CLERK [facility].; [facility]. 2021 09:12-0500 Systolic blood pressure 132 mm[Hg] Neilee L Vess C.O.D. CLERK [facility].; [facility]. 12-17-2020 09:50-0500 Body height 168.91 cm Neilee L Vess C.O.D. CLERK [facility].; [employer] [facility]. 12-17-2020 09:50-0500 Body mass index (BMI) [Ratio] 30.21 kg/m2 Neilee L Vess C.O.D. CLERK [place] [facility].; [facility]. 12-17-2020 09:50-0500 Body surface area Derived from formula 1.97 m2 Neilee L Vess C.O.D. CLERK [place] [facility].; [facility]. 12-17-2020 09:50-0500 Body temperature 97.9 [degF] Neilee L Vess C.O.D. CLERK [place] [facility].; [employer] [facility]. 12-17-2020 09:50-0500 Body weight 86.18 kg Neilee L Vess C.O.D. CLERK [facility].; [employer] [facility]. 12-17-2020 09:50-0500 Diastolic blood pressure 93 mm[Hg] Neilee L Vess C.O.D. CLERK [facility] [facility].; [employer] [facility]. 12-17-2020 09:50-0500 Heart rate 85 /min Neilee L Vess C.O.D. CLERK [facility].; [employer]. 12-17-2020 09:50-0500 Systolic blood pressure 157 mm[Hg] Tex Wan LPN [facility].; [employer]. 09-18-2020 09:22-0500 Body height 168.91 cm Yolanda M Tegan ZABALA [facility].; [employer]. 09-18-2020 09:22-0500 Body mass index (BMI) [Ratio] 29.25 kg/m2 Yolanda Juan Miguel Javed [facility].; [employer]. 09-18-2020 09:22-0500 Body surface area Derived from formula 1.94 m2 Yolanda Javed [facility].; [employer]. 09-18-2020 09:22-0500 Body temperature 98.7 [degF] Yolanda Javed [facility].; [employer]. 09-18-2020 09:22-0500 Body weight 83.46 kg Yolanda Bullard Tegan ZABALA [employer].; [employer]. 09-18-2020 09:22-0500 Diastolic blood pressure 87 mm[Hg] Yolanda Javed LPN [employer].; [employer]. 09-18-2020 09:22-0500 Heart rate 96 /min Yolanda Javed C.O.D. CLERK [employer].; [employer]. 09-18-2020 09:22-0500 Inhaled oxygen concentration 20 % Yolanda Javed LPN [employer].; [employer]. 09-18-2020 09:22-0500 Inhaled oxygen concentration 21 % Yolanda Javed LPN [employer].; [employer]. 09-18-2020 09:22-0500 SaO2% (BldA) [Mass fraction] 100 % Yolanda Javed LPN [employer].; [employer]. 09-18-2020 09:22-0500 Systolic blood pressure 136 mm[Hg] Yolanda Javed LPN [employer].; [facility], [facility]. 09-12-2020 14:07-0500 Body height 168.91 cm Valerie Snow LPN [facility], [facility].; [facility], [facility]. 09-12-2020 14:07-0500 Body mass index (BMI) [Ratio] 28.62 kg/m2 Valerie Snow LPN [facility].; [place] [facility], [facility]. 09-12-2020 14:07-0500 Body surface area Derived from formula 1.92 m2 Valerie Snow LPN [facility], [facility].; [facility], [facility]. 09-12-2020 14:07-0500 Body weight 81.65 kg Valerie Snow LPN [place] [facility], [facility].; [facility], [facility]. 09-12-2020 14:07-0500 Diastolic blood pressure 84 mm[Hg] Valerie Snow LPN [facility], [facility].; [facility], [facility]. 09-12-2020 14:07-0500 Heart rate 87 /min Valerie Snow LPN [facility], [facility].; [facility], [facility]. 09-12-2020 14:07-0500 Systolic blood pressure 127 mm[Hg] Valerie Snow LPN [facility], [facility].; [facility], [facility]. 06-12-2020 08:39-0400 Body height 168.91 cm Chely Goldberg LPN [facility], [facility].; [facility], [facility]. 06-12-2020 08:39-0400 Body mass index (BMI) [Ratio] 30.53 kg/m2 Chely Goldberg LPN [facility], [facility].; [employer], [facility]. 06-12-2020 08:39-0400 Body surface area Derived from formula 1.98 m2 Chely Goldberg LPN [facility], [facility].; [facility] [place], [facility]. 06-12-2020 08:39-0400 Body weight 87.09 kg Chely Goldberg LPN [facility], [facility].; [employer] [place], [facility]. 06-12-2020 08:39-0400 Diastolic blood pressure 76 mm[Hg] Chely Goldberg LPN [facility], [facility].; [facility]. 06-12-2020 08:39-0400 Heart rate 83 /min Chely Goldberg C.O.D. CLERK [facility], [facility].; [facility]. 06-12-2020 08:39-0400 Systolic blood pressure 136 mm[Hg] Chely Goldberg C.O.D. CLERK [facility], [facility].; [facility]. 03-12-2020 14:54-0400 Body height 168.91 cm Neilee L Vess C.O.D. CLERK [facility].; [facility]. 03-12-2020 14:54-0400 Body mass index (BMI) [Ratio] 31.64 kg/m2 Neilee L Vess C.O.D. CLERK [facility].; [facility]. 03-12-2020 14:54-0400 Body surface area Derived from formula 2.01 m2 Neilee L Vess C.O.D. CLERK [facility].; [employer] [facility]. 03-12-2020 14:54-0400 Body weight 90.27 kg Neilee L Vess C.O.D. CLERK [facility].; [employer] [facility]. 03-12-2020 14:54-0400 Diastolic blood pressure 74 mm[Hg] Neilee L Vess C.O.D. CLERK [facility].; [employer] [facility]. 03-12-2020 14:54-0400 Heart rate 91 /min Neilee L Vess C.O.D. CLERK [facility].; [employer] [facility]. 03-12-2020 14:54-0400 Systolic blood pressure 127 mm[Hg] Neilee L Vess C.O.D. CLERK [facility].; [employer] [facility]. 12-13-2019 14:45-0500 Body height 168.91 cm Violet Dawn RN [facility].; [employer]. 12-13-2019 14:45-0500 Body mass index (BMI) [Ratio] 31.88 kg/m2 Violet Dawn RN [facility].; [employer] [facility]. 12-13-2019 14:45-0500 Body surface area Derived from formula 2.01 m2 Violet Dawn RN [facility].; [employer]. 12-13-2019 14:45-0500 Body temperature 98 [degF] Violet Dawn RN [employer].; [employer]. 12-13-2019 14:45-0500 Body weight 90.95 kg Violet Dawn RN [employer].; [employer] 12-13-2019 14:45-0500 Diastolic blood pressure 76 mm[Hg] Violet Dawn RN [employer].; [employer]. 12-13-2019 14:45-0500 Heart rate 95 /min Violet Dawn RN [employer].; [employer]. 12-13-2019 14:45-0500 Systolic blood pressure 133 mm[Hg] Violet Dawn RN [employer].; [employer]. 09-06-2019 14:48-0400 Body height 168.91 cm Violet Dawn RN [employer].; [employer]. 09-06-2019 14:48-0400 Body mass index (BMI) [Ratio] 32.39 kg/m2 Violet Dawn RN [employer].; [employer]. 09-06-2019 14:48-0400 Body surface area Derived from formula 2.03 m2 Violet Dawn RN [employer].; [employer]. 09-06-2019 14:48-0400 Body temperature 98.2 [degF] Violet Dawn RN [employer].; [employer]. 09-06-2019 14:48-0400 Body weight 92.4 kg Violet Dawn RN [employer].; [employer]. 09-06-2019 14:48-0400 Diastolic blood pressure 70 mm[Hg] Violet Dawn RN [employer].; [employer]. 09-06-2019 14:48-0400 Heart rate 87 /min Violet Dawn RN [employer].; [employer]. 09-06-2019 14:48-0400 Systolic blood pressure 125 mm[Hg] Violet Dawn RN [employer].; [employer]. 06-06-2019 14:39-0400 Body height 168.91 cm Neilee L Vess C.O.D. CLERK [employer].; [employer]. 06-06-2019 14:39-0400 Body mass index (BMI) [Ratio] 32.27 kg/m2 Neilee L Vess C.O.D. CLERK [employer]. 06-06-2019 14:39-0400 Body surface area Derived from formula 2.02 m2 Neilee L Vess C.O.D. CLERK [employer].; [employer]. 06-06-2019 14:39-0400 Body weight 92.08 kg Neilee L Vess C.O.D. CLERK [employer].; [employer]. 06-06-2019 14:39-0400 Diastolic blood pressure 74 mm[Hg] Neilee L Vess C.O.D. CLERK [employer].; [employer]. 06-06-2019 14:39-0400 Heart rate 90 /min Neilee L Vess C.O.D. CLERK [employer].; [employer]. 06-06-2019 14:39-0400 Systolic blood pressure 122 mm[Hg] Neilee L Vess C.O.D. CLERK [employer].; [employer]. 03-07-2019 10:55-0400 Body height 168.91 cm Neilee L Vess C.O.D. CLERK [employer].; [employer]. 03-07-2019 10:55-0400 Body mass index (BMI) [Ratio] 32.91 kg/m2 Neilee L Vess C.O.D. CLERK [employer].; [employer]. 03-07-2019 10:55-0400 Body surface area Derived from formula 2.04 m2 Neilee L Vess C.O.D. CLERK [employer].; [employer]. 03-07-2019 10:55-0400 Body weight 93.9 kg Neilee L Vess C.O.D. CLERK [employer].; [employer]. 03-07-2019 10:55-0400 Diastolic blood pressure 74 mm[Hg] Neilee L Vess C.O.D. CLERK [employer].; [employer] 03-07-2019 10:55-0400 Heart rate 86 /min Tex Crawford Soco C.O.D. CLERK [employer] 03-07-2019 10:55-0400 Systolic blood pressure 128 mm[Hg] Tex Crawford Soco C.O.D. CLERK [employer] 01-18-2019 09:59-0400 Body height 168.91 cm Violet Dawn RN [employer].; [employer]. 01-18-2019 09:59-0400 Body mass index (BMI) [Ratio] 32.46 kg/m2 Violet Dawn RN [employer].; [employer] 01-18-2019 09:59-0400 Body surface area Derived from formula 2.03 m2 Violet Dawn RN [employer].; [employer]. 01-18-2019 09:59-0400 Body temperature 97.5 [degF] Violet Dawn RN [employer].; [employer]. 01-18-2019 09:59-0400 Body weight 92.63 kg Violet Dawn RN [employer].; [employer]. 01-18-2019 09:59-0400 Diastolic blood pressure 89 mm[Hg] Violet Dawn RN [employer] 01-18-2019 09:59-0400 Heart rate 92 /min Violet Dawn RN [employer].; [employer] 01-18-2019 09:59-0400 Systolic blood pressure 153 mm[Hg] Violet Dawn RN [employer].; [employer]. 11-16-2018 12:07-0500 Body height 168.91 cm Damari Henson PA-C Work Phone: [employer].; [employer]. 11-16-2018 12:07-0500 Body mass index (BMI) [Ratio] 31.51 kg/m2 Damari Henson PA-C Work Phone: [employer].; [employer]. 11-16-2018 12:07-0500 Body surface area Derived from formula 2 m2 Damari D Floodlight PA-C Work Phone: [employer].; [employer]. 11-16-2018 12:07-0500 Body temperature 98.6 [degF] Damari D Floodlight PA-C Work Phone: [employer].; [employer]. 11-16-2018 12:07-0500 Body weight 89.9 kg Damari D Floodlight PA-C Work Phone: [employer].; [employer]. 11-16-2018 12:07-0500 Diastolic blood pressure 92 mm[Hg] Damari D Floodlight PA-C Work Phone: [employer].; [employer]. 11-16-2018 12:07-0500 Heart rate 111 /min Damari Denny Floodlight PA-C Work Phone: [employer]; [employer]. 11-16-2018 12:07-0500 Systolic blood pressure 147 mm[Hg] Damari D Floodlight PA-C Work Phone: [employer].; [employer]. 08-18-2018 14:59-0400 Body height 168.91 cm Violet Dawn RN [employer].; [employer]. 08-18-2018 14:59-0400 Body mass index (BMI) [Ratio] 31.43 kg/m2 Violet Dawn RN [employer].; [employer]. 08-18-2018 14:59-0400 Body surface area Derived from formula 2 m2 Violet Dawn RN [employer].; [employer]. 08-18-2018 14:59-0400 Body temperature 98.1 [degF] Violet Dawn RN [employer].; [employer]. 08-18-2018 14:59-0400 Body weight 89.68 kg Violet Dawn RN [facility] [employer] 08-18-2018 14:59-0400 Diastolic blood pressure 85 mm[Hg] Violet Dawn RN [facility] [employer] 08-18-2018 14:59-0400 Heart rate 87 /min Violet Dawn RN [facility] [employer]. 08-18-2018 14:59-0400 Systolic blood pressure 140 mm[Hg] Violet Dawn RN [employer] 05-09-2018 13:22-0400 Body height 168.91 cm Violet Dawn RN [employer]. 05-09-2018 13:22-0400 Body mass index (BMI) [Ratio] 30.3 kg/m2 Violet Dawn RN [facility] [employer]. 05-09-2018 13:22-0400 Body surface area Derived from formula 1.97 m2 Violet Dawn RN [employer].; [employer]. 05-09-2018 13:22-0400 Body temperature 98.7 [degF] Violet Dawn RN [employer]. 05-09-2018 13:22-0400 Body weight 86.46 kg Violet Dawn RN [employer]. 05-09-2018 13:22-0400 Diastolic blood pressure 83 mm[Hg] Violet Dawn RN [employer]. 05-09-2018 13:22-0400 Heart rate 110 /min Violet Dawn RN [employer]. 05-09-2018 13:22-0400 Systolic blood pressure 136 mm[Hg] Violet Dawn RN [employer]. 02-09-2018 15:09-0400 Body height 168.91 cm Violet Dawn RN [employer].; [employer]. 02-09-2018 15:09-0400 Body mass index (BMI) [Ratio] 31.46 kg/m2 Violet Dawn RN [employer]. 02-09-2018 15:090400 Body surface area Derived from formula 2 m2 Violet Dawn RN [employer].; [employer]. 02-09-2018 15:09-0400 Body temperature 98.5 [degF] Violet Dawn RN [employer].; [employer]. 02-09-2018 15:090400 Body weight 89.77 kg Violet Dawn RN [employer].; [employer]. 02-09-2018 15:09-0400 Diastolic blood pressure 81 mm[Hg] Violet Dawn RN [employer].; [employer]. 02-09-2018 15:09-0400 Heart rate 85 /min Violet Dawn RN [employer].; [employer]. 02-09-2018 15:09-0400 Systolic blood pressure 135 mm[Hg] Violet Dawn RN [employer].; [employer]. 11-11-2017 15:190500 Body height 168.91 cm Violet Dawn RN [employer].; [employer]. 11-11-2017 15:19-0500 Body mass index (BMI) [Ratio] 29.59 kg/m2 Violet Dawn RN [employer].; [employer]. 11-11-2017 15:0500 Body surface area Derived from formula 1.95 m2 Violet Dawn RN [employer].; [employer]. 11-11-2017 15:19-0500 Body temperature 98.2 [degF] Violet Dawn RN [employer].; [employer]. 11-11-2017 15:19-0500 Body weight 84.41 kg Violet Dawn RN [employer].; [employer]. 11-11-2017 15:19-0500 Diastolic blood pressure 87 mm[Hg] Violet Dawn RN [employer].; [employer] 11-11-2017 15:19-0500 Heart rate 93 /min Violet Dawn RN [employer].; [employer]. 11-11-2017 15:19-0500 Systolic blood pressure 129 mm[Hg] Violet Dawn RN [employer].; [employer]. 08-12-2017 11:33-0400 Body height 168.91 cm Violet Dawn RN [employer].; [employer]. 08-12-2017 11:33-0400 Body mass index (BMI) [Ratio] 31.05 kg/m2 Violet Dawn RN [employer].; [employer]. 08-12-2017 11:33-0400 Body surface area Derived from formula 1.99 m2 Violet Dawn RN [employer].; [employer]. 08-12-2017 11:33-0400 Body temperature 97.9 [degF] Violet Dawn RN [employer].; [employer]. 08-12-2017 11:33-0400 Body weight 88.59 kg Violet Dawn RN [employer].; [employer]. 08-12-2017 11:33-0400 Diastolic blood pressure 79 mm[Hg] Violet Dawn RN [employer].; [employer]. 08-12-2017 11:33-0400 Heart rate 81 /min Violet Dawn RN [employer].; [employer]. 08-12-2017 11:33-0400 Systolic blood pressure 118 mm[Hg] Violet Dawn RN [employer].; [employer]. 06-10-2017 07:29-0400 BMI (Body Mass Index) 33.84 kg/m2 Cristobal Ewing [facility] Work Phone: 06-10-2017 07:29-0400 Body Temperature 97.7 [degF] Cristobal Ewing [facility] [place] [facility] Work Phone: 06-10-2017 07:29-0400 BP Diastolic 86 mm[Hg] [facility] Work Phone: 06-10-2017 07:29-0400 BP Systolic 137 mm[Hg] [facility] Work Phone: 06-10-2017 07:29-0400 Height 165.1 cm Cristobal Ewing [facility] Work Phone: 06-10-2017 07:29-0400 Pulse (Heart Rate) 77 /min Cristobal Ewing [facility] Work Phone: 06-10-2017 07:29-0400 Respiratory Rate 20 /min Cristobal Ewing [facility] [place] [facility] Work Phone: 06-10-2017 07:29-0400 Weight 92.26 kg Cristobal Ewing [facility] Work Phone: 05-17-2017 14:59-0400 Body height 168.91 cm Violet Dawn RN [employer]. 05-17-2017 14:59-0400 Body mass index (BMI) [Ratio] 32.89 kg/m2 Violet Dawn RN [employer]. 05-17-2017 14:59-0400 Body surface area Derived from formula 2.04 m2 Violet Dawn RN [employer]. 05-17-2017 14:59-0400 Body temperature 98.5 [degF] Violet Dawn RN [employer] 05-17-2017 14:59-0400 Body weight 93.85 kg Violet Dawn RN [employer].; [employer]. 05-17-2017 14:59-0400 Diastolic blood pressure 73 mm[Hg] Violet Dawn RN [employer].; [employer]. 05-17-2017 14:59-0400 Heart rate 84 /min Violet Dawn RN [employer].; [employer]. 05-17-2017 14:59-0400 Systolic blood pressure 120 mm[Hg] Violet Dawn RN [employer].; [employer]. 04-07-2017 10:40-0400 Body height 168.91 cm Violet Dawn RN [employer].; [employer]. 04-07-2017 10:40-0400 Body mass index (BMI) [Ratio] 31.73 kg/m2 Violet Dawn RN [employer].; [employer]. 04-07-2017 10:40-0400 Body surface area Derived from formula 2.01 m2 Violet Dawn RN [employer].; [employer]. 04-07-2017 10:40-0400 Body temperature 98.5 [degF] Violet Dawn RN [employer].; [employer]. 04-07-2017 10:40-0400 Body weight 90.54 kg Violet Dawn RN [employer].; [employer]. 04-07-2017 10:40-0400 Diastolic blood pressure 84 mm[Hg] Violet Dawn RN [employer].; [employer]. 04-07-2017 10:40-0400 Heart rate 91 /min Violet Dawn RN [employer].; [employer]. 04-07-2017 10:40-0400 Systolic blood pressure 152 mm[Hg] Violet Dawn RN [employer].; [employer]. 02-15-2017 15:05-0400 Body height 168.91 cm Violet Dawn RN [employer].; [employer]. 02-15-2017 15:05-0400 Body mass index (BMI) [Ratio] 33.12 kg/m2 Violet Dawn RN [employer].; [employer]. 02-15-2017 15:05-0400 Body surface area Derived from formula 2.05 m2 Violet aDwn RN [employer].; [employer] 02-15-2017 15:05-0400 Body temperature 98.7 [degF] Violet Dawn RN [employer].; [employer]. 02-15-2017 15:05-0400 Body weight 94.48 kg Violet Dawn RN [employer].; [employer]. 02-15-2017 15:05-0400 Diastolic blood pressure 77 mm[Hg] Violet Dawn RN [employer].; [employer]. 02-15-2017 15:05-0400 Heart rate 75 /min Violet Dawn RN [employer].; [employer]. 02-15-2017 15:05-0400 Systolic blood pressure 124 mm[Hg] Violet Dawn RN [employer].; [employer]. 08-13-2016 15:24-0400 Body height 168.91 cm Violet Dawn RN [employer].; [employer]. 08-13-2016 15:24-0400 Body mass index (BMI) [Ratio] 33.39 kg/m2 Violet Dawn RN [employer].; [employer]. 08-13-2016 15:24-0400 Body surface area Derived from formula 2.05 m2 Violet Dawn RN [employer].; [employer]. 08-13-2016 15:24-0400 Body temperature 98.2 [degF] Violet Dawn RN [employer].; [employer]. 08-13-2016 15:24-0400 Body weight 95.26 kg Violet Dawn RN [employer].; [employer]. 08-13-2016 15:24-0400 Diastolic blood pressure 77 mm[Hg] Violet Dawn RN [employer].; [employer]. 08-13-2016 15:24-0400 Heart rate 83 /min Violet Dawn RN [employer] 08-13-2016 15:24-0400 Systolic blood pressure 125 mm[Hg] Violet Dawn RN [employer] 06-01-2016 09:38-0400 Height 165.1 cm Cristobal [facility] Work Phone: 05-13-2016 11:57-0400 Body height 168.91 cm Violet Dawn RN [employer] 05-13-2016 11:57-0400 Body mass index (BMI) [Ratio] 34.01 kg/m2 Violet Dawn RN [employer] 05-13-2016 11:57-0400 Body surface area Derived from formula 2.07 m2 Violet Dawn RN [employer] 05-13-2016 11:57-0400 Body temperature 98.6 [degF] Violet Dawn RN [employer].; [employer] 05-13-2016 11:57-0400 Body weight 97.03 kg Violet Dawn RN [employer] 05-13-2016 11:57-0400 Diastolic blood pressure 91 mm[Hg] Violet Dawn RN [employer].; [employer] 05-13-2016 11:57-0400 Heart rate 83 /min Violet Dawn RN [employer].; [employer]. 05-13-2016 11:57-0400 Systolic blood pressure 141 mm[Hg] Violet Dawn RN [employer].; [employer] 03-20-2016 08:47-0400 Body height 168.91 cm Damari Tijerina RN [employer].; [employer]. 03-20-2016 08:47-0400 Body mass index (BMI) [Ratio] 33.7 kg/m2 Damari [facility]ijerina RN [facility].; [employer]. 03-20-2016 08:47-0400 Body surface area Derived from formula 2.06 m2 Damari [facility]ijerina RN [facility].; [employer]. 03-20-2016 08:47-0400 Body weight 96.16 kg Damari Tijerina RN [facility].; [employer]. 03-20-2016 08:47-0400 Diastolic blood pressure 91 mm[Hg] Damari Tijerina RN [facility].; [facility]. 03-20-2016 08:47-0400 Heart rate 71 /min Damari Tijerina RN [facility].; [employer]. 03-20-2016 08:47-0400 Systolic blood pressure 158 mm[Hg] Damari Tijerina RN [facility].; [employer]. 10-29-2015 14:59-0500 Body height 168.91 cm Charlene Capone PA-C Work Phone: [employer].; [employer]. 10-29-2015 14:59-0500 Body mass index (BMI) [Ratio] 33.7 kg/m2 Charlene Capone PA-C Work Phone: [employer].; [employer]. 10-29-2015 14:59-0500 Body surface area Derived from formula 2.06 m2 Charlene Capone PA-C Work Phone: [employer].; [employer]. 10-29-2015 14:59-0500 Body weight 96.16 kg Charlene Capone PA-C Work Phone: [employer].; [employer]. 10-29-2015 14:59-0500 Diastolic blood pressure 68 mm[Hg] Charlene Capone PA-C Work Phone: [employer].; [employer]. 10-29-2015 14:59-0500 Heart rate 74 /min Charlene Capone PA-C Work Phone: [employer].; [employer]. 10-29-2015 14:59-0500 Systolic blood pressure 112 mm[Hg] Charlene Capone PA-C Work Phone: [employer].; [employer]. 10-09-2015 17:16-0500 Body height 168.91 cm Violet Dawn RN [employer].; [employer]. 10-09-2015 17:16-0500 Body mass index (BMI) [Ratio] 34.34 kg/m2 Violet Dawn RN [employer].; [employer]. 10-09-2015 17:16-0500 Body surface area Derived from formula 2.08 m2 Violet Dawn RN [employer].; [employer]. 10-09-2015 17:16-0500 Body temperature 97.9 [degF] Violet Dawn RN [employer].; [employer]. 10-09-2015 17:16-0500 Body weight 97.98 kg Violet Dawn RN [employer].; [employer]. 10-09-2015 17:16-0500 Diastolic blood pressure 68 mm[Hg] Violet Dawn RN [employer].; [employer]. 10-09-2015 17:16-0500 Heart rate 71 /min Violet Dawn RN [employer].; [employer]. 10-09-2015 17:16-0500 Systolic blood pressure 117 mm[Hg] Violet Dawn RN [employer].; [employer]. 08-07-2015 15:59-0400 Body height 168.91 cm Violet Dawn RN [employer].; [employer]. 08-07-2015 15:59-0400 Body mass index (BMI) [Ratio] 34.34 kg/m2 Violet Dawn RN [employer].; [employer]. 08-07-2015 15:59-0400 Body surface area Derived from formula 2.08 m2 Violet Dawn RN [facility].; [employer]. 08-07-2015 15:59-0400 Body temperature 98 [degF] Violet Dawn RN [facility].; [employer]. 08-07-2015 15:59-0400 Body weight 97.98 kg Violet Dawn RN [employer].; [employer]. 08-07-2015 15:59-0400 Diastolic blood pressure 69 mm[Hg] Violet Dawn RN [facility].; [employer]. 08-07-2015 15:59-0400 Heart rate 80 /min Violet Dawn RN [employer]. 08-07-2015 15:59-0400 Systolic blood pressure 136 mm[Hg] Violet Dawn RN [facility].; [employer]. 07-23-2015 16:40-0400 Body height 168.91 cm Damari Tijerina RN [employer].; [employer]. 07-23-2015 16:40-0400 Body mass index (BMI) [Ratio] 33.86 kg/m2 Damari Tijerina RN [employer].; [employer]. 07-23-2015 16:40-0400 Body surface area Derived from formula 2.07 m2 Damari Tijerina RN [employer]. 07-23-2015 16:40-0400 Body temperature 98.7 [degF] Damari Tijerina RN [employer]. 07-23-2015 16:40-0400 Body weight 96.62 kg Damari Tijerina RN [employer]. 07-23-2015 16:40-0400 Diastolic blood pressure 81 mm[Hg] Damari Tijerina RN [employer]. 07-23-2015 16:40-0400 Heart rate 85 /min Damari Tijreina RN [employer] [employer]. 07-23-2015 16:40-0400 Systolic blood pressure 123 mm[Hg] Damari Tijerina RN [employer] [employer]. 07-08-2015 13:08-0400 Body height 152.4 cm Violet Dawn RN [employer] [employer]. 07-08-2015 13:08-0400 Body mass index (BMI) [Ratio] 42.57 kg/m2 Violet Dawn RN [employer]. 07-08-2015 13:08-0400 Body surface area Derived from formula 1.94 m2 Violet Dawn RN [employer]. 07-08-2015 13:08-0400 Body temperature 97.6 [degF] Violet Dawn RN [employer]. 07-08-2015 13:08-0400 Body weight 98.88 kg Violet Dawn RN [employer]. 07-08-2015 13:08-0400 Diastolic blood pressure 92 mm[Hg] Violet Dawn RN [employer]. 07-08-2015 13:08-0400 Heart rate 78 /min Violet Dawn RN [employer]. 07-08-2015 13:08-0400 Systolic blood pressure 143 mm[Hg] Violet Dawn RN [employer]. 07-03-2015 17:21-0400 Body height 152.4 cm Violet Dawn RN [employer]. 07-03-2015 17:21-0400 Body mass index (BMI) [Ratio] 43.16 kg/m2 Violet Dawn RN [employer]. 07-03-2015 17:21-0400 Body surface area Derived from formula 1.95 m2 Violet Dawn RN [place] [facility] [employer]. 07-03-2015 17:21-0400 Body temperature 98 [degF] Violet Dawn RN [place] [facility] [employer]. 07-03-2015 17:21-0400 Body weight 100.25 kg Violet Dawn RN [place] [facility] [employer]. 07-03-2015 17:21-0400 Diastolic blood pressure 81 mm[Hg] Violet Dawn RN [place] [facility] [employer]. 07-03-2015 17:21-0400 Heart rate 74 /min Violet Dawn RN [place] [facility] [employer]. 07-03-2015 17:21-0400 Systolic blood pressure 124 mm[Hg] Violet Dawn RN [place] [facility] [employer]. 06-28-2015 16:05-0400 Body height 167.64 cm Damari Tijerina RN [employer]. 06-28-2015 16:05-0400 Body mass index (BMI) [Ratio] 35.51 kg/m2 Damari [facility]ijerina RN [facility] [employer]. 06-28-2015 16:05-0400 Body surface area Derived from formula 2.08 m2 Damari Tijerina RN [employer]. 06-28-2015 16:05-0400 Body temperature 98.3 [degF] Damari Tijerina RN [employer]. 06-28-2015 16:05-0400 Body weight 99.79 kg Damari Tijerina RN [employer]. 06-28-2015 16:05-0400 Diastolic blood pressure 77 mm[Hg] Damari Tijerina RN [employer]. 06-28-2015 16:05-0400 Heart rate 87 /min Damari Tijerina RN [facility] [employer]. 06-28-2015 16:05-0400 Inhaled oxygen concentration 20 % Damari Tijerina RN [facility], [facility].; [employer]. 06-28-2015 16:05-0400 Inhaled oxygen concentration 21 % Damari Tijerina RN [facility], [employer]. 06-28-2015 16:05-0400 SaO2% (BldA) [Mass fraction] 98 % Damari Tijerina RN [place] [facility].; [employer]. 06-28-2015 16:05-0400 Systolic blood pressure 145 mm[Hg] Damari Tijerina RN [place] [facility].; [employer]. 05-14-2015 14:47-0400 Body height 167.64 cm Naa Valladares LPN [facility] [facility] [employer]. 05-14-2015 14:47-0400 Body mass index (BMI) [Ratio] 35.51 kg/m2 Naa Valladares LPN [employer]. 05-14-2015 14:47-0400 Body surface area Derived from formula 2.08 m2 Naa Valladares LPN [employer]. 05-14-2015 14:47-0400 Body weight 99.79 kg Naa Valladares LPN [employer]. 05-14-2015 14:47-0400 Diastolic blood pressure 81 mm[Hg] Naa Valladares LPN [employer]. 05-14-2015 14:47-0400 Heart rate 77 /min Naa Valladares LPN [employer]. 05-14-2015 14:47-0400 Systolic blood pressure 131 mm[Hg] Naa Valladares LPN [employer]. 02-27-2015 17:06-0400 Body height 167.64 cm Violet Dawn RN [facility].; [employer]. 02-27-2015 17:06-0400 Body mass index (BMI) [Ratio] 35.51 kg/m2 Violet Dawn RN [place] [facility].; [employer] 02-27-2015 17:06-0400 Body surface area Derived from formula 2.08 m2 Violet Dawn RN [employer]. 02-27-2015 17:06-0400 Body temperature 97.7 [degF] Violet Dawn RN [employer]. 02-27-2015 17:06-0400 Body weight 99.79 kg Violet Dawn RN [employer]. 02-27-2015 17:06-0400 Diastolic blood pressure 77 mm[Hg] Violet Dawn RN [employer] [employer]. 02-27-2015 17:06-0400 Heart rate 77 /min Violet Dawn RN [employer]. 02-27-2015 17:06-0400 Systolic blood pressure 140 mm[Hg] Violet Dawn RN [employer]. 01-31-2015 16:00-0400 Body height 167.64 cm Violet Dawn RN [employer]. 01-31-2015 16:00-0400 Body mass index (BMI) [Ratio] 35.02 kg/m2 Violet Dawn RN [employer]. 01-31-2015 16:00-0400 Body surface area Derived from formula 2.07 m2 Violet Dawn RN [employer]. 01-31-2015 16:00-0400 Body temperature 97.8 [degF] Violet Dawn RN [employer]. 01-31-2015 16:00-0400 Body weight 98.43 kg Violet Dawn RN [facility], [facility].; [employer] 01-31-2015 16:00-0400 Diastolic blood pressure 90 mm[Hg] Violet Dawn RN [facility], [facility].; [employer] 01-31-2015 16:00-0400 Heart rate 80 /min Violet Dawn RN [facility], [facility].; [employer] 01-31-2015 16:00-0400 Systolic blood pressure 136 mm[Hg] Violet Dawn RN [facility], [facility].; [employer]. 01-16-2015 10:43-0400 Body height 167.64 cm Naa Valladares LPN [facility], [facility].; [employer]. 01-16-2015 10:43-0400 Body mass index (BMI) [Ratio] 35.35 kg/m2 Naa Valladares LPN [facility] [employer], [employer]. 01-16-2015 10:43-0400 Body surface area Derived from formula 2.08 m2 Naa Valladares LPN [facility], [facility].; [employer] 01-16-2015 10:43-0400 Body temperature 98.4 [degF] Naa Valladares LPN [facility], [facility].; [employer]. 01-16-2015 10:43-0400 Body weight 99.34 kg Naa Valladares LPN [facility], [facility].; [employer], [employer]. 01-16-2015 10:43-0400 Diastolic blood pressure 86 mm[Hg] Naa Valladares LPN [facility], [facility].; [employer]. 01-16-2015 10:43-0400 Heart rate 70 /min Naa Valladares LPN [facility] [employer], [employer]. 01-16-2015 10:43-0400 Inhaled oxygen concentration 20 % Naa Valladares LPN [facility] [employer]. 01-16-2015 10:43-0400 Inhaled oxygen concentration 21 % Naa Montejoerd C.O.D. CLERK [facility], [facility].; [employer] 01-16-2015 10:43-0400 SaO2% (BldA) [Mass fraction] 98 % Naa Montejoerd [facility], [facility].; [employer]. 01-16-2015 10:43-0400 Systolic blood pressure 154 mm[Hg] Naa Escalanteseanerd [facility] [employer]. 11-20-2014 09:36-0500 Body temperature 97.9 [degF] Neilee L Vess [facility].; [employer]. 11-20-2014 09:36-0500 Body weight 97.98 kg Neilee L Vess [facility].; [employer]. 11-20-2014 09:36-0500 Diastolic blood pressure 81 mm[Hg] Neilee L Vess C.O.D. CLERK [place] [facility].; [employer] 11-20-2014 09:36-0500 Heart rate 76 /min Neilee L Vess [facility].; [employer]. 11-20-2014 09:36-0500 Inhaled oxygen concentration 20 % Neilee L Vess C.O.D. CLERK [place] [facility], [facility].; [employer]. 11-20-2014 09:36-0500 Inhaled oxygen concentration 21 % Neilee L Vess C.O.D. CLERK [place] [facility].; [employer]. 11-20-2014 09:36-0500 SaO2% (BldA) [Mass fraction] 99 % Neilee L Vess C.O.D. CLERK [employer] [facility].; [employer] 11-20-2014 09:36-0500 Systolic blood pressure 135 mm[Hg] Neilee L Vess C.O.D. CLERK [employer] 11-15-2014 11:22-0500 Body height 167.64 cm Violet Dawn RN [place] [facility].; [employer]. 11-15-2014 11:22-0500 Body mass index (BMI) [Ratio] 34.06 kg/m2 Violet Dawn RN [employer]. 11-15-2014 11:22-0500 Body surface area Derived from formula 2.05 m2 Violet Dawn RN [employer]. 11-15-2014 11:22-0500 Body temperature 98 [degF] Violet Dawn RN [facility].; [employer]. 11-15-2014 11:22-0500 Body weight 95.71 kg Violet Dawn RN [employer]. 11-15-2014 11:22-0500 Diastolic blood pressure 85 mm[Hg] Violet Dawn RN [employer]. 11-15-2014 11:22-0500 Heart rate 88 /min Violet Dawn RN [employer]. 11-15-2014 11:22-0500 Systolic blood pressure 126 mm[Hg] Violet Dawn RN [employer]. 09-26-2014 15:27-0500 Body height 167.64 cm Violet Dawn RN [employer]. 09-26-2014 15:27-0500 Body mass index (BMI) [Ratio] 35.11 kg/m2 Violet Dawn RN [employer]. 09-26-2014 15:27-0500 Body surface area Derived from formula 2.07 m2 Violet Dawn RN [employer]. 09-26-2014 15:27-0500 Body temperature 97.5 [degF] Violet Dawn RN [employer]. 09-26-2014 15:27-0500 Body weight 98.66 kg Violet Dawn RN [employer]. 09-26-2014 15:27-0500 Diastolic blood pressure 78 mm[Hg] Violet Dawn RN [employer]. 09-26-2014 15:27-0500 Heart rate 78 /min Violet Dawn RN [employer]. 09-26-2014 15:27-0500 Systolic blood pressure 132 mm[Hg] Violet Dawn RN [employer] 08-27-2014 15:01-0400 Body height 167.64 cm Violet Dawn RN [employer]. 08-27-2014 15:01-0400 Body mass index (BMI) [Ratio] 34.94 kg/m2 Violet Dawn RN [employer]. 08-27-2014 15:01-0400 Body surface area Derived from formula 2.07 m2 Violet Dawn RN [employer]. 08-27-2014 15:01-0400 Body weight 98.2 kg Violet Dawn RN [employer]. 08-27-2014 15:01-0400 Diastolic blood pressure 93 mm[Hg] Violet Dawn RN [employer]. 08-27-2014 15:01-0400 Heart rate 76 /min Violet Dawn RN [employer]. 08-27-2014 15:01-0400 Systolic blood pressure 146 mm[Hg] Violet Dawn RN [employer]. 05-24-2014 14:34-0400 Body height 167.64 cm Violet Dawn RN [employer]. 05-24-2014 14:34-0400 Body mass index (BMI) [Ratio] 35.15 kg/m2 Violet Dawn RN [employer]. 05-24-2014 14:34-0400 Body surface area Derived from formula 2.07 m2 Violet Dawn RN [employer]. 05-24-2014 14:34-0400 Body weight 98.79 kg Violet Dawn [facility].; [employer] [facility]. 05-24-2014 14:34-0400 Diastolic blood pressure 90 mm[Hg] Violet Dawn RN [facility].; [employer] 05-24-2014 14:34-0400 Heart rate 78 /min Violet Dawn RN [facility] [employer]. 05-24-2014 14:34-0400 Systolic blood pressure 132 mm[Hg] Violet Dawn RN [place] [facility].; [employer]. 04-24-2014 08:37-0400 Body temperature 96.7 [degF] Neilee L Vess C.O.D. CLERK [employer] [employer]. 04-24-2014 08:37-0400 Body weight 98.88 kg Neilee L Vess C.O.D. CLERK [employer]. 04-24-2014 08:37-0400 Diastolic blood pressure 85 mm[Hg] Neilee L Vess C.O.D. CLERK [employer]. 04-24-2014 08:37-0400 Heart rate 76 /min Neilee L Vess C.O.D. CLERK [employer]. 04-24-2014 08:37-0400 Systolic blood pressure 143 mm[Hg] Neilee L Vess C.O.D. CLERK [employer]. 03-16-2014 09:02-0400 Body height 168.91 cm Yolanda Javed LPN [facility].; [employer]. 03-16-2014 09:02-0400 Body mass index (BMI) [Ratio] 33.86 kg/m2 Yolanda Javed LPN [employer]. 03-16-2014 09:02-0400 Body surface area Derived from formula 2.07 m2 Yolanda Javed LPN [employer]. 03-16-2014 09:02-0400 Body temperature 99.2 [degF] Yolanda Bullard Tegan ZABALA [employer] 03-16-2014 09:02-0400 Body weight 96.62 kg Yolanda M Tegan ZABALA [employer] 03-16-2014 09:02-0400 Diastolic blood pressure 89 mm[Hg] Yolanda Javed LPN [employer] 03-16-2014 09:02-0400 Heart rate 91 /min Yolanda Javed LPN [employer]. 03-16-2014 09:02-0400 Systolic blood pressure 136 mm[Hg] Yolanda M Tegan ZABALA [employer] 02-28-2014 17:13-0400 Body height 168.91 cm Violet Dawn RN [employer]. 02-28-2014 17:13-0400 Body mass index (BMI) [Ratio] 34.34 kg/m2 Violet Dawn RN [employer]. 02-28-2014 17:13-0400 Body surface area Derived from formula 2.08 m2 Violet Dawn RN [employer]. 02-28-2014 17:13-0400 Body temperature 98 [degF] Violet Dawn RN [employer]. 02-28-2014 17:13-0400 Body weight 97.98 kg Violet Dawn RN [employer]. 02-28-2014 17:13-0400 Diastolic blood pressure 90 mm[Hg] Violet Dawn RN [employer]. 02-28-2014 17:13-0400 Heart rate 89 /min Violet Dawn RN [employer]. 02-28-2014 17:13-0400 Systolic blood pressure 147 mm[Hg] Violet Dawn RN [employer]. 08-30-2013 16:51-0400 Body height 168.91 cm Violet Dawn RN [place] [facility].; [employer] 08-30-2013 16:51-0400 Body mass index (BMI) [Ratio] 33.96 kg/m2 Violet Dawn RN [place] [facility].; [employer] 08-30-2013 16:51-0400 Body surface area Derived from formula 2.07 m2 Violet Dawn RN [place] [facility].; [employer] 08-30-2013 16:51-0400 Body temperature 98.3 [degF] Violet Dawn RN [employer] [employer] 08-30-2013 16:51-0400 Body weight 96.89 kg Violet Dawn RN [place] [facility].; [employer]. 08-30-2013 16:51-0400 Diastolic blood pressure 86 mm[Hg] Violet Dawn RN [place] [facility].; [employer]. 08-30-2013 16:51-0400 Heart rate 80 /min Violet Dawn RN [place] [facility].; [employer] 08-30-2013 16:51-0400 Systolic blood pressure 134 mm[Hg] Violet Dawn RN [place] [facility].; [employer]. 06-07-2013 15:39-0400 Body height 168.91 cm Violet Dawn RN [place] [facility].; [employer]. 06-07-2013 15:39-0400 Body mass index (BMI) [Ratio] 33.78 kg/m2 Violet Dawn RN [facility] [employer]. 06-07-2013 15:39-0400 Body surface area Derived from formula 2.06 m2 Violet Dawn RN [employer]. 06-07-2013 15:39-0400 Body temperature 97.9 [degF] Violet Dawn RN [employer] [employer]. 06-07-2013 15:39-0400 Body weight 96.39 kg Violet Dawn RN [place] [facility].; [employer] [facility]. 06-07-2013 15:39-0400 Diastolic blood pressure 82 mm[Hg] Violet Dawn RN [facility].; [employer] 06-07-2013 15:39-0400 Heart rate 74 /min Violet Dawn RN [place] [facility].; [employer] 06-07-2013 15:39-0400 Systolic blood pressure 136 mm[Hg] Violet Dawn RN [place] [facility].; [employer] 04-26-2013 16:53-0400 Body height 168.91 cm Violet Dawn RN [employer] [employer] 04-26-2013 16:53-0400 Body mass index (BMI) [Ratio] 35.06 kg/m2 Violet Dawn RN [place] [facility].; [employer] 04-26-2013 16:53-0400 Body surface area Derived from formula 2.1 m2 Violet Dawn RN [facility].; [employer] 04-26-2013 16:53-0400 Body temperature 97.6 [degF] Violet Dawn RN [employer] [employer] 04-26-2013 16:53-0400 Body weight 100.02 kg Violet Dawn RN [employer] [employer] 04-26-2013 16:53-0400 Diastolic blood pressure 81 mm[Hg] Violet Dawn RN [employer] [employer] 04-26-2013 16:53-0400 Heart rate 76 /min Violet Dawn RN [employer] 04-26-2013 16:53-0400 Systolic blood pressure 137 mm[Hg] Violet Dawn RN [employer] 01-25-2013 17:17-0400 Body height 168.91 cm Violet Dawn RN [facility].; [employer]. 01-25-2013 17:17-0400 Body mass index (BMI) [Ratio] 35.2 kg/m2 Violet Dawn RN [place] [facility].; [employer]. 01-25-2013 17:17-0400 Body surface area Derived from formula 2.1 m2 Violet Dawn RN [facility].; [employer]. 01-25-2013 17:17-0400 Body temperature 97.7 [degF] Violet Dawn RN [employer]. 01-25-2013 17:17-0400 Body weight 100.43 kg Violet Dawn RN [employer]. 01-25-2013 17:17-0400 Diastolic blood pressure 70 mm[Hg] Violet Dawn RN [facility].; [employer]. 01-25-2013 17:17-0400 Heart rate 76 /min Violet Dawn RN [employer] [facility].; [employer]. 01-25-2013 17:17-0400 Systolic blood pressure 131 mm[Hg] Violet Dawn RN [employer]. 11-21-2012 13:29-0500 Body height 168.91 cm Violet Dawn RN [employer]. 11-21-2012 13:29-0500 Body mass index (BMI) [Ratio] 34.5 kg/m2 Violet Dawn RN [employer]. 11-21-2012 13:29-0500 Body surface area Derived from formula 2.08 m2 Violet Dawn RN [employer]. 11-21-2012 13:29-0500 Body temperature 97.4 [degF] Violet Dawn RN [employer]. 11-21-2012 13:29-0500 Body weight 98.43 kg Violet Dawn RN [employer]. 11-21-2012 13:29-0500 Diastolic blood pressure 83 mm[Hg] Violet Dawn RN [employer] [employer]. 11-21-2012 13:29-0500 Heart rate 84 /min Violet Dawn RN [place] [facility] [employer]. 11-21-2012 13:29-0500 Systolic blood pressure 120 mm[Hg] Violet Dawn RN [employer] [employer]. 10-26-2012 14:56-0500 Body height 168.91 cm Violet Dawn RN [employer]. 10-26-2012 14:56-0500 Body mass index (BMI) [Ratio] 35.61 kg/m2 Violet Dawn RN [employer] [employer]. 10-26-2012 14:56-0500 Body surface area Derived from formula 2.11 m2 Violet Dawn RN [employer] [employer]. 10-26-2012 14:56-0500 Body weight 101.61 kg Violet Dawn RN [employer]. 10-26-2012 14:56-0500 Diastolic blood pressure 76 mm[Hg] Violet Dawn RN [employer] [employer]. 10-26-2012 14:56-0500 Heart rate 76 /min Violet Dawn RN [employer] [employer]. 10-26-2012 14:56-0500 Systolic blood pressure 126 mm[Hg] Violet Dawn RN [employer]. 10-19-2012 16:52-0500 Body height 168.91 cm Violet Dawn RN [employer]. 10-19-2012 16:52-0500 Body mass index (BMI) [Ratio] 36.06 kg/m2 Violet Dawn RN [employer]. 10-19-2012 16:52-0500 Body surface area Derived from formula 2.12 m2 Violet Dawn RN [employer]. 10-19-2012 16:52-0500 Body temperature 97.7 [degF] Violet Dawn RN [employer]. 10-19-2012 16:52-0500 Body weight 102.88 kg Violet Dawn RN [employer]. 10-19-2012 16:52-0500 Diastolic blood pressure 71 mm[Hg] Violet Dawn RN [employer]. 10-19-2012 16:52-0500 Heart rate 77 /min Violet Dawn RN [employer]. 10-19-2012 16:52-0500 Systolic blood pressure 124 mm[Hg] Violet Dawn RN [employer]. 09-08-2012 15:24-0400 Body height 168.91 cm Violet Dawn RN [employer]. 09-08-2012 15:24-0400 Body mass index (BMI) [Ratio] 36.92 kg/m2 Violet Dawn RN [employer]. 09-08-2012 15:24-0400 Body surface area Derived from formula 2.14 m2 Violet Danw RN [employer]. 09-08-2012 15:24-0400 Body temperature 97.6 [degF] Violet Dawn RN [employer]. 09-08-2012 15:24-0400 Body weight 105.33 kg Violet Dawn RN [employer]. 09-08-2012 15:24-0400 Diastolic blood pressure 88 mm[Hg] Violet Dawn RN [employer]. 09-08-2012 15:24-0400 Heart rate 80 /min Violet Dawn RN [employer]. 09-08-2012 15:24-0400 Systolic blood pressure 149 mm[Hg] Violet Dawn RN [place] [employer] 05-27-2012 13:36-0400 Body height 168.91 cm Pam Dykes RN Work Phone: [employer] 05-27-2012 13:36-0400 Body mass index (BMI) [Ratio] 35.29 kg/m2 Pam Dykes RN Work Phone: [employer] 05-27-2012 13:36-0400 Body surface area Derived from formula 2.1 m2 Pam Dykes RN Work Phone: [employer]. 05-27-2012 13:36-0400 Body weight 100.7 kg Pam Dykes RN Work Phone: [employer]. 05-27-2012 13:36-0400 Diastolic blood pressure 80 mm[Hg] Pam Dykes RN Work Phone: [employer]. 05-27-2012 13:36-0400 Heart rate 88 /min Pam Dykes RN Work Phone: [employer]. 05-27-2012 13:36-0400 Systolic blood pressure 118 mm[Hg] Pam Dykes RN Work Phone: [employer]. 03-30-2012 13:12-0400 Body height 168.91 cm Violet Dawn RN [employer] 03-30-2012 13:12-0400 Body mass index (BMI) [Ratio] 35.01 kg/m2 Violet Dawn RN [employer] 03-30-2012 13:12-0400 Body surface area Derived from formula 2.1 m2 Violet Dawn RN [employer]. 03-30-2012 13:12-0400 Body temperature 97.9 [degF] Violet Dawn RN [place] [employer]. 03-30-2012 13:12-0400 Body weight 99.88 kg Violet Dawn RN [employer]. 03-30-2012 13:12-0400 Diastolic blood pressure 78 mm[Hg] Violet Dawn RN [place]. 03-30-2012 13:12-0400 Heart rate 90 /min Violet Dawn RN [facility] [employer]. 03-30-2012 13:12-0400 Systolic blood pressure 132 mm[Hg] Violet Dawn RN [employer]. 12-30-2011 16:52-0500 Body height 170.18 cm Violet Dawn RN [employer]. 12-30-2011 16:52-0500 Body mass index (BMI) [Ratio] 33.39 kg/m2 Violet Dawn RN [employer]. 12-30-2011 16:52-0500 Body surface area Derived from formula 2.08 m2 Violet Dawn RN [employer]. 12-30-2011 16:52-0500 Body temperature 97 [degF] Violet Dawn RN [employer]. 12-30-2011 16:52-0500 Body weight 96.71 kg Violet Dawn RN [employer]. 12-30-2011 16:52-0500 Diastolic blood pressure 72 mm[Hg] Violet Dawn RN [employer]. 12-30-2011 16:52-0500 Heart rate 79 /min Violet Dawn RN [employer]. 12-30-2011 16:52-0500 Systolic blood pressure 118 mm[Hg] Violet Dawn RN [place] [employer] 12-22-2011 13:52-0500 Body height 170.18 cm Pam Dykes RN Work Phone: [employer] 12-22-2011 13:52-0500 Body mass index (BMI) [Ratio] 33.05 kg/m2 Pam Dykes RN Work Phone: [employer]. 12-22-2011 13:52-0500 Body surface area Derived from formula 2.07 m2 Pam Dykes RN Work Phone: [employer]. 12-22-2011 13:52-0500 Body weight 95.71 kg Pam Dykes RN Work Phone: [employer]. 12-22-2011 13:52-0500 Diastolic blood pressure 78 mm[Hg] Pam Dykes RN Work Phone: [employer]. 12-22-2011 13:52-0500 Heart rate 90 /min Pam Dykes RN Work Phone: [employer]. 12-22-2011 13:52-0500 Systolic blood pressure 123 mm[Hg] Pam Dykes RN Work Phone: [employer]. 11-19-2011 10:22-0500 Body height 170.18 cm Violet Dawn RN [employer]. 11-19-2011 10:22-0500 Body mass index (BMI) [Ratio] 32.86 kg/m2 Violet Dawn RN [employer]. 11-19-2011 10:22-0500 Body surface area Derived from formula 2.06 m2 Violet Dawn RN [facility].; [employer]. 11-19-2011 10:22-0500 Body temperature 97.8 [degF] Violet Dawn RN [employer] [facility].; [employer]. 11-19-2011 10:22-0500 Body weight 95.17 kg Violet Dawn RN [place] [facility].; [employer]. 11-19-2011 10:22-0500 Diastolic blood pressure 85 mm[Hg] Violet Dawn RN [place] [facility].; [employer]. 11-19-2011 10:22-0500 Heart rate 80 /min Violet Dawn RN [employer]. 11-19-2011 10:22-0500 Systolic blood pressure 137 mm[Hg] Violet Dawn RN [employer]. 10-05-2011 10:04-0500 Body height 170.18 cm Violet Dawn RN [employer]. 10-05-2011 10:04-0500 Body mass index (BMI) [Ratio] 33.33 kg/m2 Violet Dawn RN [employer]. 10-05-2011 10:04-0500 Body surface area Derived from formula 2.08 m2 Violet Dawn RN [employer]. 10-05-2011 10:04-0500 Body temperature 97.6 [degF] Violet Dawn RN [employer] [facility].; [employer]. 10-05-2011 10:04-0500 Body weight 96.53 kg Violet Dawn RN [employer]. 10-05-2011 10:04-0500 Diastolic blood pressure 79 mm[Hg] Violet Dawn RN [employer]. 10-05-2011 10:04-0500 Heart rate 93 /min Violet Dawn RN [employer]. 10-05-2011 10:04-0500 Systolic blood pressure 137 mm[Hg] Violet Dawn RN [employer]. 08-27-2011 15:03-0400 Body height 170.18 cm Damari D Floodlight PA-C Work Phone: [employer]. 08-27-2011 15:03-0400 Body mass index (BMI) [Ratio] 34.97 kg/m2 Colatris PA-C Work Phone: [employer]. 08-27-2011 15:03-0400 Body surface area Derived from formula 2.12 m2 Colatris PA-C Work Phone: [employer]. 08-27-2011 15:03-0400 Body temperature 97.8 [degF] Damari Denny Floodlight PA-C Work Phone: [employer]. 08-27-2011 15:03-0400 Body weight 101.27 kg Damari Denny Flood[employer] PA-C Work Phone: [employer] 08-27-2011 15:03-0400 Diastolic blood pressure 69 mm[Hg] Colatris PA-C Work Phone: [employer]. 08-27-2011 15:03-0400 Heart rate 92 /min Colatris PA-C Work Phone: [employer]. 08-27-2011 15:03-0400 Systolic blood pressure 141 mm[Hg] Colatris PA-C Work Phone: [employer]. 08-12-2011 17:04-0400 Body height 170.18 cm Violet Dawn RN [employer]. 08-12-2011 17:04-0400 Body mass index (BMI) [Ratio] 35.77 kg/m2 Violet Dawn RN [place] [facility].; [employer]. 08-12-2011 17:04-0400 Body surface area Derived from formula 2.14 m2 Violet Dawn RN [place] [facility].; [employer]. 08-12-2011 17:040400 Body temperature 97 [degF] Violet Dawn RN [employer] [employer]. 08-12-2011 17:040400 Body weight 103.6 kg Violet Dawn RN [employer]. 08-12-2011 17:04-0400 Diastolic blood pressure 73 mm[Hg] Violet Dawn RN [employer]. 08-12-2011 17:04-0400 Heart rate 95 /min Violet Dawn RN [place] [facility] [employer]. 08-12-2011 17:04-0400 Systolic blood pressure 124 mm[Hg] Violet Dawn RN [facility] [employer]. 02-19-2011 10:10-0400 Body height 170.18 cm Violet Dawn RN [employer]. 02-19-2011 10:10-0400 Body mass index (BMI) [Ratio] 34.64 kg/m2 Violet Dawn RN [employer]. 02-19-2011 10:10-0400 Body surface area Derived from formula 2.11 m2 Violet Dawn RN [employer]. 02-19-2011 10:10-0400 Body temperature 97.9 [degF] Violet Dawn RN [employer]. 02-19-2011 10:10-0400 Body weight 100.34 kg Violet Dawn RN [employer]. 02-19-2011 10:10-0400 Diastolic blood pressure 86 mm[Hg] Violet Dawn RN [facility] [employer] 02-19-2011 10:10-0400 Heart rate 94 /min Violet Dawn RN [facility] [employer]; [employer]. 02-19-2011 10:10-0400 Systolic blood pressure 139 mm[Hg] Violet Dawn RN [place] [employer] 01-22-2011 17:00-0400 Body height 170.18 cm [facility] Work Phone: [employer]. Work Phone: 01-22-2011 17:00-0400 Body mass index (BMI) [Ratio] 33.83 kg/m2 [facility] Work Phone: [employer]. Work Phone: 01-22-2011 17:00-0400 Body surface area Derived from formula 2.09 m2 [facility] Work Phone: [employer]; [employer]. Work Phone: 01-22-2011 17:00-0400 Body temperature 96.6 [degF] Madison Lucy C.O.D. CLERK Work Phone: [employer]; [employer]. Work Phone: 01-22-2011 17:00-0400 Body [facility] 97.98 [facility] Work Phone: [employer]; [employer]. Work Phone: 01-22-2011 17:00-0400 Diastolic blood pressure 89 mm[Hg] Madison Lucy C.O.D. CLERK Work Phone: [employer]; [employer]. Work Phone: 01-22-2011 17:00-0400 Heart rate 103 /min Madison Ayala LPN Work Phone: [employer]. Work Phone: 01-22-2011 17:00-0400 Systolic blood pressure 131 mm[Hg] Madison Ayala LPN Work Phone: [employer]. Work Phone: 09-01-2010 14:58-0400 Body temperature 98.1 [degF] Violet Dawn RN [employer]. 09-01-2010 14:58-0400 Body weight 99.61 kg Violet Dawn RN [employer]. 09-01-2010 14:58-0400 Diastolic blood pressure 73 mm[Hg] Violet Dawn RN [employer]. 09-01-2010 14:58-0400 Heart rate 87 /min Violet Dawn RN [employer]. 09-01-2010 14:58-0400 Systolic blood pressure 119 mm[Hg] Violet Dawn RN [employer]. Encounters Encounter Date Encounter Type Care Provider Facility Start: 03-07-2025 End: 03-07-2025 Patient encounter procedure Raissa Griffith APRN.POWER TRANSFORMER REPAIRER Work Phone: [facility] Comment on above: Acute pain of left s houlder (Primary Dx) Start: 03-07-2025 End: 03-07-2025 ambulatory RAISSA GRIFFITH Facility:[facility] Start: 02-23-2025 End: 02-23-2025 Patient encounter status Dania Michel MA [employer]. Start: 02-23-2025 End: 02-23-2025 Periodic preventive med est patient 40-64yrs Charlene Capone PA-C Work Phone: [employer]. Start: 02-15-2025 End: 02-15-2025 Charlene Capone PA-C [facility] Phone[facility] Start: 02-12-2025 End: 02-12-2025 Charlene Capone PA-C Work Phone: [facility] Start: 02-09-2025 End: 02-09-2025 ambulatory Charlene Capone PA Work Phone: [facility] Work Phone: Start: 02-09-2025 End: 02-09-[address] River Dai DO -Laboratory Work Phone: Start: 02-09-2025 End: 02-09-2025 ambulatory Charlene Capone Facility:[facility] Start: 12-27-2024 End: 12-27-2024 Office outpatient visit 15 minutes Charlene Capone PA-C Work Phone: [facility] Start: 12-26-2024 End: 12-26-2024 Telephone encounter Rupali Sage APRN.CNP Work Phone: OB/Gynecology Start: 10-31-2024 End: 10-31-[address] River Dai DO -Laboratory Work Phone: Start: 10-31-2024 End: 10-31-2024 ambulatory River Dai Facility:[facility] Start: 10-30-2024 End: 10-30-2024 Charlene Capone PA-C Work Phone: [facility] Start: 09-11-2024 End: 09-11-2024 Office outpatient new 45 minutes [facility] Work Phone: [facility] Comment on above: Left shoulder pain, unspecified chronicity (Primary Dx) Start: 09-11-2024 End: 09-11-2024 Subsequent hospital visit by physician Alondra Little MD Work Phone: [facility] [place] Comment on above: Arrived Start: 09-11-2024 ambulatory ALONDRA LITTLE Kojo it:[facility] Start: 08-25-2024 End: 08-25-2024 Office outpatient visit 25 minutes Charlene SANDHU-C Work Phone: [employer] [facility] Start: 08-25-2024 Charlene Capone P A-C Work Phone: [facility] Start: 08-04-2024 End: 08-04-2024 ambulatory River Riojascindy Facility:[facility] Start: 07-11-2024 End: 07-12-2024 Documentation procedure Mammography Coordinator [facility] Department Start: 07-11-2024 End: 07-12-2024 Letter encounter Mammography Coordinator [facility] Department Start: 07-11-2024 End: 07-11-2024 Patient encounter procedure Rupali Sage APRN.CNP Work Phone: OB/Gynecology Comment on above: Encounter for gyneco logical examination (general) (routine) without abnormal findings (Primary Dx); Encounter for screening mammogram for breast cancer Start: 07-11-2024 End: 07-11-2024 Patient encounter status Rupali Sage APRN.CNP Work Phone: [facility] Start: 07-11-2024 End: 07-11-2024 ambulatory DAMARI Baldwin [place] Facility:[facility] Start: 07-11-2024 End: 07-11-2024 Subsequent hospital visit by physician Screen Mammo [facility] Mammogram Comment on above: Encounter for screen ing mammogram for malignant neoplasm of breast [Z12.31] Start: 07-11-2024 End: 07-11-2024 ambulatory Charlene Kurt Facility:[facility] Start: 04-08-2024 End: 04-08-2024 ambulatory Charlene Capone Facility:[facility] Start: 02-18-2024 End: 02-18-2024 Periodic preventive med est patient 40-64yrs Charlene Capone PA-C Work Phone: [employer] [facility] Start: 02-18-2024 End: 02-18-2024 Medical examinations/reports status Dania Michel MA [facility].; [facility] Start: 02-18-2024 Charlene Nazario Work Phone: [facility] Start: 02-07-2024 End: 02-07-2024 ambulatory [facility] Work Phone: Start: 02-07-2024 End: 02-07-2024 Discharged Recurring [facility]-Physical Therapy Work Phone: Start: 01-12-2024 Registered Recurring [facility]-Physical Therapy Work Phone: Start: 01-10-2024 End: 01-10-2024 ambulatory [facility] Work Phone: Start: 01-10-2024 End: 01-10-2024 Patient encounter procedure [facility] Start: 11-12-2023 End: 11-12-2023 Admission to same day surgery center [facility]-Surgical Day Care Start: 11-12-2023 End: 11-12-2023 ambulatory [facility] Work Phone: Start: 10-19-2023 End: 10-19-2023 Office outpatient visit 15 minutes Charlene Capone PA-C Work Phone: [facility] Start: 10-19-2023 End: 10-19-2023 Preprocedural examination done Charlene Capone PA-C Work Phone: [facility] Start: 10-09-2023 End: 10-09-2023 ambulatory [facility] Work Phone: Start: 10-09-2023 End: 10-09-2023 Patient encounter procedure [facility]-Laboratory Work Phone: Start: 09-07-2023 End: 09-07-2023 ambulatory [facility] Work Phone: Start: 09-07-2023 End: 09-07-2023 Patient encounter procedure [facility]-MRI - [facility] Work Phone: Start: 08-06-2023 End: 08-09-2023 Office outpatient visit 25 minutes Charlene Capone PA-C Work Phone: [facility] Start: 07-10-2023 End: 07-10-2023 ambulatory [facility] Work Phone: Start: 07-10-2023 End: 07-10-2023 Patient encounter procedure [facility]-Laboratory Work Phone: Start: 05-18-2023 ambulatory Rupali MCKOY RN.POWER TRANSFORMER REPAIRER Work Phone: OB/Gynecology Comment on above: Pap test Start: 05-12-2023 Documentation procedure Mammog cristina Coordinator [facility] Start: 05-12-2023 Letter encounter Mammography Coordinator [facility] Department Start: 05-10-2023 End: 05-10-2023 Patient encounter procedure Rupali Sage APRN.CNP Work Phone: OB/Gynecology Comment on above: Encounter for gyneco logical examination with abnormal finding (Primary Dx); Vulvovaginal itching; Postmenopausal atrophic vaginitis; Encounter for screening for human papillomavirus (HPV); Pap smear for cervical cancer screening; Encounter for screening mammogram for breast cancer Start: 05-10-2023 End: 05-10-2023 Patient encounter status Rupali Sage APRN.CNP Work Phone: OB/Gynecology Start: 04-23-2023 Telephone encounter Rupali ignacio APRN.CNP Work Phone: OB/Gynecology Comment on above: Orders Start: 04-15-2023 End: 04-15-2023 ambulatory [facility] Work Phone: Start: 04-15-2023 End: 04-15-2023 Patient encounter procedure [facility]-Laboratory Start: 01-28-2023 End: 01-28-2023 Office outpatient visit 25 minutes Charlene Capone PA-C Work Phone: [facility] Start: 2023 End: 2023 [facility] Start: 01-12-2023 End: 01-12-2023 ambulatory [facility] Work Phone: Start: 01-12-2023 End: 01-12-2023 Discharged Recurring [facility]-Physical Therapy Start: 10-09-2022 End: 10-09-2022 Admission to same day surgery center [facility]-Surgical Day Care Start: 09-29-2022 End: 09-29-2022 ambulatory [facility] Work Phone: Start: 09-29-2022 End: 09-29-2022 Patient encounter procedure [facility] Start: 09-15-2022 End: 09-15-2022 ambulatory [facility] Work Phone: Start: 09-15-2022 End: 09-15-2022 Patient encounter procedure [facility]-Radiology, [facility] Start: 09-14-2022 End: 09-14-2022 ambulatory [facility] Work Phone: Start: 09-14-2022 End: 09-14-2022 Patient encounter procedure [facility]-Nuclear Medicine, [facility] Start: 08-22-2022 End: 08-22-2022 ambulatory [facility] Work Phone: Start: 08-22-2022 End: 08-22-2022 Patient encounter procedure [facility]-MRI - [facility] Start: 08-13-2022 End: 08-13-2022 ambulatory CHARLENE CAPONE [facility] Start: 08-13-2022 End: 08-13-2022 Patient encounter status Charlene Capone PA-C Work Phone: [employer] [facility], [facility]. Start: 08-13-2022 End: 08-13-2022 Periodic preventive med est patient 40-64yrs Charlene Capone PA-C Work Phone: [facility]. Start: 07-25-2022 End: 07-25-2022 ambulatory MARIA TERESA PAC VELEZ [facility] Start: 07-19-2022 End: 07-19-2022 ambulatory CHARLENE PA-C [facility] Start: 07-04-2022 End: 07-04-2022 ambulatory CHARLENE PA-C [facility] Start: 04-03-2022 End: 04-03-2022 ambulatory CHARLENE PA-C [facility] Start: 01-28-2022 End: 01-28-2022 Office outpatient visit 15 minutes Charlene Capone PA-C Work Phone: [employer]. Start: 01-10-2022 End: 01-10-2022 ambulatory CHARLENE PA-C [facility] Start: 12-02-2021 End: 12-02-2021 Office outpatient visit 25 minutes Charlene Capone PA-C Work Phone: [employer]. Start: 09-20-2021 End: 09-20-2021 ambulatory DARRELL BALLESTEROS [facility] Start: 07-17-2021 End: 07-17-2021 Patient encounter status Charlene Capone PA-C Work Phone: [employer]; [employer]. Start: 07-17-2021 End: 07-17-2021 Periodic preventive med est patient 40-64yrs Charlene Capone PA-C Work Phone: [employer]. Start: 06-25-2021 End: 06-25-2021 Charlene Capone PA-C Work Phone: [employer] Start: 04-15-2021 End: 04-15-2021 Office outpatient visit 15 minutes Charlene Capone PA-C Work Phone: [employer] Start: 03-24-2021 End: 03-24-2021 Office outpatient visit 15 minutes Charlene Capone PA-C Work Phone: [employer] Start: 2021 End: 2021 Office outpatient visit 25 minutes Charlene Capone PA-C Work Phone: [employer]. Start: 12-17-2020 End: 12-17-2020 Office outpatient visit 40 minutes Charlene Capone PA-C Work Phone: [employer]. Start: 09-18-2020 End: 09-18-2020 Office outpatient visit 15 minutes Charlene Capone PA-C Work Phone: [employer]. Start: 09-12-2020 End: 09-12-2020 Charlene Capone PA-C Work Phone: [employer]. Start: 09-12-2020 End: 09-12-2020 Medical examinations/reports status Valerie Snow LPN [employer]. Start: 09-12-2020 End: 09-12-2020 Charlene Capone PA-C Work Phone: [employer]. Start: 06-12-2020 End: 06-12-2020 Charlene Capone PA-C Work Phone: [employer]. Start: 03-12-2020 End: 03-12-2020 Office outpatient visit 25 minutes Charlene Capone PA-C Work Phone: [employer]. Start: 12-13-2019 End: 12-13-2019 Office outpatient visit 25 minutes Charlene Capone PA-C Work Phone: [employer]. Start: 10-30-2019 End: 11-06-2019 Charlene Capone PA-C Work Phone: [employer]. Start: 09-06-2019 End: 09-07-2019 Patient encounter status Charlene Capone PA-C Work Phone: [employer].; [employer]. Start: 09-06-2019 End: 09-07-2019 Charlene Capone PA-C Work Phone: [employer]. Start: 06-16-2019 End: 06-17-2019 Charlene Capone PA-C Work Phone: [employer]. Start: 06-06-2019 End: 06-06-2019 Office outpatient visit 25 minutes Charlene Capone PA-C Work Phone: [employer]. Start: 05-09-2019 End: 05-09-2019 Charlene Capone PA-C Work Phone: [employer]. Start: 04-05-2019 End: 04-05-2019 Charlene Capone PA-C Work Phone: [employer]. Start: 03-29-2019 End: 03-29-2019 Charlene Capone PA-C Work Phone: [employer] Start: 03-13-2019 End: 03-13-2019 Charlene Capone PA-C Work Phone: [employer]. Start: 03-08-2019 End: 03-08-2019 Charlene Capone PA-C Work Phone: [employer]. Start: 03-07-2019 End: 03-07-2019 Office outpatient visit 25 minutes Charlene Capone PA-C Work Phone: [employer] Start: 03-07-2019 End: 03-06-2019 Charlene Capone PA-C Work Phone: [employer] Start: 01-18-2019 End: 01-18-2019 Office outpatient visit 15 minutes Charlene Capone PA-C Work Phone: [employer] Start: 12-28-2018 End: 12-28-2018 Charlene Capone PA-C Work Phone: [employer] Start: 11-16-2018 End: 11-16-2018 Office outpatient visit 25 minutes Charlene Capone PA-C Work Phone: [employer] [employer] Start: 08-18-2018 End: 08-18-2018 Patient encounter status Charlene Capone PA-C Work Phone: [employer] Start: 08-18-2018 End: 08-18-2018 Charlene Capone PA-C Work Phone: [employer]. Start: 06-16-2018 End: 06-16-2018 Charlene Capone PA-C Work Phone: [employer]. Start: 05-09-2018 End: 05-09-2018 Office outpatient visit 15 minutes Charlene Capone PA-C Work Phone: [employer]. Start: 02-21-2018 End: 02-21-2018 Charlene Capone PA-C Work Phone: [employer] Start: 02-09-2018 End: 02-09-2018 Office outpatient visit 25 minutes Charlene Capone PA-C Work Phone: [employer]. Start: 11-24-2017 End: 11-24-2017 Charlene Capone PA-C Work Phone: [employer]. Start: 11-11-2017 End: 11-11-2017 Office outpatient visit 25 minutes Charlene Capone PA-C Work Phone: [employer] Start: 10-06-2017 End: 10-06-2017 Charlene Capone PA-C Work Phone: [employer]. Start: 08-12-2017 End: 08-12-2017 Charlene Capone PA-C Work Phone: [employer] Start: 08-12-2017 End: 08-12-2017 Office outpatient visit 15 minutes Charlene Capone PA-C Work Phone: [employer] Start: 05-17-2017 End: 05-17-2017 Charlene Capone PA-C Work Phone: [employer] Start: 04-13-2017 End: 04-15-2017 Charlene Capone PA-C Work Phone: [employer]. Start: 04-07-2017 End: 04-07-2017 Evaluation finding Charelne Capone PA-C Work Phone: [employer]. Start: 04-07-2017 End: 04-07-2017 Charlene Capone PA-C Work Phone: [employer]. Start: 02-15-2017 End: 02-15-2017 Charlene Capone PA-C Work Phone: [employer]. Start: 11-24-2016 End: 11-24-2016 Charlene Capone PA-C Work Phone: [employer]. Start: 11-19-2016 End: 11-19-2016 Charlene Capone PA-C Work Phone: [employer]. Start: 08-13-2016 End: 08-13-2016 Charlene Capone PA-C Work Phone: [employer]. Start: 05-13-2016 End: 05-13-2016 Charlene Capone PA-C Work Phone: [employer]. Start: 03-20-2016 End: 03-22-2016 Office outpatient visit 25 minutes Charlene Capone PA-C Work Phone: [employer]. Start: 02-14-2016 End: 02-14-2016 Hcarlene Capone PA-C Work Phone: [employer] Start: 11-12-2015 End: 11-12-2015 Charlene Capone PA-C Work Phone: [employer] Start: 10-29-2015 End: 10-29-2015 Charlene Capone PA-C Work Phone: [employer] Start: 10-09-2015 End: 10-09-2015 Charlene Capone PA-C Work Phone: [employer] Start: 09-04-2015 End: 09-04-2015 Charlene Capone PA-C Work Phone: [employer]. Start: 08-07-2015 End: 08-07-2015 Charlene Capone PA-C Work Phone: [employer]. Start: 07-23-2015 End: 07-23-2015 Office outpatient visit 15 minutes Charlene Capone PA-C Work Phone: [employer]. Start: 07-08-2015 End: 07-08-2015 Charlene Capone PA-C Work Phone: [employer]. Start: 07-03-2015 End: 07-04-2015 Charlene Capone PA-C Work Phone: [employer] Start: 06-28-2015 End: 06-28-2015 Office outpatient visit 15 minutes Charlene Capone PA-C Work Phone: [employer] Start: 05-14-2015 End: 05-14-2015 Charlene Capone PA-C Work Phone: [employer]. Start: 03-11-2015 End: 03-11-2015 Charlene Capone PA-C Work Phone: [employer] Start: 02-27-2015 End: 02-27-2015 Charlene Capone PA-C Work Phone: [employer]. Start: 01-31-2015 End: 01-31-2015 Charlene Capone PA-C Work Phone: [employer]. Start: 01-16-2015 End: 01-17-2015 Charlene Capone PA-C Work Phone: [employer] Start: 11-20-2014 End: 11-20-2014 Charlene Acpone PA-C Work Phone: [employer]. Start: 11-15-2014 End: 11-15-2014 Charlene Capone PA-C Work Phone: [employer]. Start: 09-26-2014 End: 09-26-2014 Charlene Capone PA-C Work Phone: [employer]. Start: 08-27-2014 End: 08-27-2014 Charlene Capone PA-C Work Phone: [employer]. Start: 05-30-2014 End: 05-31-2014 Charlene Capone PA-C Work Phone: [employer]. Start: 05-24-2014 End: 05-24-2014 Routine general medical examination at a health care facility Charlene Capone PA-C Work Phone: [employer] Start: 05-24-2014 End: 05-24-2014 Charlene Capone PA-C Work Phone: [employer]. Start: 04-24-2014 End: 04-24-2014 Charlene Capone PA-C Work Phone: [employer]. Start: 03-16-2014 End: 03-16-2014 Charlene Capone PA-C Work Phone: [employer]. Start: 02-28-2014 End: 02-28-2014 Charlene Capone PA-C Work Phone: [employer]. Start: 02-26-2014 End: 02-26-2014 Charlene Capone PA-C Work Phone: [employer] Start: 08-30-2013 End: 08-30-2013 Charlene Capone PA-C Work Phone: [employer]. Start: 07-31-2013 End: 07-31-2013 Charlene Capone PA-C Work Phone: [employer] Start: 07-25-2013 End: 07-25-2013 Charlene Capone PA-C Work Phone: [employer]. Start: 07-12-2013 End: 07-12-2013 Charlene Capone PA-C Work Phone: [employer]. Start: 07-05-2013 End: 07-05-2013 Charlene Capone PA-C Work Phone: [employer]. Start: 06-14-2013 End: 06-14-2013 Charlene Capone PA-C Work Phone: [employer]. Start: 06-12-2013 End: 06-12-2013 Charlene Capone PA-C Work Phone: [employer]. Start: 06-07-2013 End: 06-07-2013 Charlene Capone PA-C Work Phone: [employer]. Start: 04-26-2013 End: 04-26-2013 Charlene Capone PA-C Work Phone: [employer]. Start: 03-27-2013 End: 03-27-2013 Charlene Capone PA-C Work Phone: [employer]. Start: 03-24-2013 End: 03-24-2013 Charlene Capone PA-C Work Phone: [employer] Start: 01-25-2013 End: 01-25-2013 Charlene Capone PA-C Work Phone: [employer]. Start: 01-23-2013 End: 01-23-2013 Charlene Capone PA-C Work Phone: [employer]. Start: 11-21-2012 End: 11-21-2012 Charlene Capone PA-C Work Phone: [employer]. Start: 10-26-2012 End: 10-26-2012 Charlene Capone PA-C Work Phone: [employer] Start: 10-19-2012 End: 10-19-2012 Charlene Capone PA-C Work Phone: [employer]. Start: 09-08-2012 End: 09-08-2012 Charlene Capone PA-C Work Phone: [employer] Start: 07-12-2012 End: 07-12-2012 Charlene Capone PA-C Work Phone: [employer]. Start: 07-12-2012 End: 07-12-2012 Charlene Capone PA-C Work Phone: [employer]. Start: 05-27-2012 End: 05-27-2012 Charlene Capone PA-C Work Phone: [employer]. Start: 03-30-2012 End: 03-30-2012 Charlene Capone PA-C Work Phone: [employer]. Start: 02-03-2012 End: 02-03-2012 Charlene Capone PA-C Work Phone: [employer]. Start: 12-30-2011 End: 12-30-2011 Charlene Capone PA-C Work Phone: [employer]. Start: 12-22-2011 End: 12-22-2011 Charlene Capone PA-C Work Phone: [employer]. Start: 11-19-2011 End: 11-19-2011 Charlene Capone PA-C Work Phone: [employer]. Start: 10-05-2011 End: 10-05-2011 Charlene Capone PA-C Work Phone: [employer]. Start: 08-27-2011 End: 08-27-2011 Charlene Capone PA-C Work Phone: [employer]. Start: 08-12-2011 End: 08-12-2011 Charlene Capone PA-C Work Phone: [employer]. Start: 03-26-2011 End: 03-26-2011 Charlene Capone PA-C Work Phone: [employer]. Start: 02-19-2011 End: 02-19-2011 Charlene Capone PA-C Work Phone: [employer]. Start: 01-22-2011 End: 01-22-2011 Charlene Capone PA-C Work Phone: [employer]. Start: 09-01-2010 End: 09-01-2010 Charlene Capone PA-C Work Phone: [employer]. Start: 08-28-2010 End: 08-28-2010 Charlene Capone PA-C Work Phone: [employer]. Start: 08-18-2010 End: 08-18-2010 Laboratory examination ordered as part of a routine general medical examination Charlene Capone PA-C Work Phone: [employer]. Start: 08-18-2010 End: 08-18-2010 Charlene Capone PA-C Work Phone: [employer]. Start: 07-17-2010 End: 07-17-2010 Charlene Capone PA-C Work Phone: [employer] [facility] Evaluation finding Damari van PA-C Work Phone: [facility].; [employer] [facility] Laboratory examinati on ordered as part of a routine general medical examination Violet Dawn RN [facility].; [facility] [employer] [facility]. Medical examinations/reports status Charlene Lorna Capone PA-C Work Phone: [facility].; [employer] [facility]. Patient encounter status Itzel Pickett MA [facility] [employer] [facility].; [facility]. Patient encounter status Flo Henson PA-C Work Phone: [facility] [facility] [employer] [facility].; [employer] [facility]. Patient encounter status Flo Henson PA-C Work Phone: [facility].; [facility]. Patient encounter status Dania Michel MA [facility]. Patient encounter status Dania Michel MA [facility].; [facility]. Patient encounter status Itzel Pickett MA [facility].; [facility] Patient encounter status Charlene Capone PA-C Work Phone: [facility].; [facility]. Preprocedural examin ation done Dania Michel [facility].; [facility]. Preprocedural examin ation done Dania Mcihel MA [facility].; [facility]. Preprocedural examin ation done Itzel Pickett MA [facility].; [place] [facility]. Routine general medi cristian examination at a [facility] facility Violet Dawn RN [facility] [employer]; [facility] Procedures Date Procedure Procedure Detail Performing Clinician Start: 02-23-2025 End: 02-23-2025 Depression screening Charlene Capone PA-C Work Phone: Start: 02-23-2025 End: 02-23-2025 Scr dep neg, no plan reqd Charlene Capone PA-C Work Phone: Start: 02-14-2025 End: 02-14-2025 Hyacinth Mahajan Start: 02-09-2025 End: 02-09-2025 Hyacinth Mahajan Start: 11-15-2024 End: 11-15-2024 Hyacinth Mahajan Start: 09-11-2024 Radex shoulder complete minimum 2 views Alondra Little MD Work Phone: Start: 08-09-2024 End: 08-09-2024 Dania Michel MA Start: 07-11-2024 Screening digital breast tomosynthesis bi Rupali Sage APRN.CNP Work Phone: Start: 02-18-2024 End: 02-18-2024 Depression screening Charlene J Capone PA-C Work Phone: Start: 02-18-2024 End: 02-18-2024 Scr dep neg, no plan reqd Charlene J Capone PA-C Work Phone: Start: 01-10-2024 End: 01-10-2024 Daniapatricia Gallowayraquel SIBLEY Start: 11-12-2023 End: 11-12-2023 Daniapatricia Michel MARYJO Start: 11-12-2023 Fluoroscopic guidance Start: 11-12-2023 Radiography of foot Start: 11-12-2023 Resection Heel Spur/Plantar Fasciotomy (Left) Start: 09-07-2023 MRI of joint of lower extremity Start: 07-20-2023 End: 07-20-2023 Examination of retina Itzelbell Pickett MA Start: 05-10-2023 Mammography Mammography Coordinator Start: 10-09-2022 X-ray of both feet Start: 10-09-2022 Diagnostic radiography of calcaneus Start: 10-09-2022 Fluoroscopic guidance Start: 09-15-2022 X-ray of skull Start: 09-14-2022 Radionuclide whole body bone study Start: 08-22-2022 MRI of joint of lower extremity Start: 08-13-2022 End: 08-13-2022 Depression screening Charlene J Capone PA-C Work Phone: Start: 08-13-2022 End: 08-13-2022 Pos clin depres scrn f/u doc Charlene Rothman Capone PA-C Work Phone: Start: 10-03-2021 End: 10-03-2021 Mammography Itzel Piyush SIBLEY Start: 07-17-2021 End: 07-17-2021 Depression screening Charlene J Capone PA-C Work Phone: Start: 07-17-2021 End: 07-17-2021 Scr dep neg, no plan reqd Charlene J Capone PA-C Work Phone: Start: 07-06-2021 End: 07-06-2021 Lab findings surveillance Itzel Shirley Start: 07-06-2021 End: 07-06-2021 Itzel Pickett MA Start: 07-06-2021 End: 07-06-2021 Itzel Pickett MA Start: 2021 End: 2021 Most recent diastolic blood pressure 80-89 mm hg Damari Baldwin Talbotton PA-C Work Phone: Start: 2021 End: 2021 Most recent systolic blood press 130-139mm hg Damari Baldwin Talbotton PA-C Work Phone: Start: 09-12-2020 End: 09-12-2020 Depression screening Damari Baldwin Talbotton PA -C Work Phone: Start: 09-12-2020 End: 09-12-2020 Scr dep neg, no plan reqd Damari Hogan ls PA-C Work Phone: Start: 09-06-2020 End: 09-25-2021 Dxa bone density study 1/> sites axial skel Damari Denny Talbotton PA-C Work Phone: Start: 06-30-2020 End: 06-30-2020 Itzel Pickett MA Start: 06-12-2020 End: 09-25-2021 Most recent hg a1c>equal to 7.0%&<8.0% Damari Baldwin Talbotton PA-C Work Phone: Start: 03-12-2020 End: 09-25-2021 Most recent hg a1c>equal to 7.0%&<8.0% Damari D Talbotton PA-C Work Phone: Start: 03-12-2020 End: 03-12-2020 Itzel Pickett MA Start: 12-12-2019 End: 09-25-2021 Most recent hg a1c>equal to 7.0%&<8.0% Damari D Talbotton PA-C Work Phone: Start: 09-06-2019 End: 09-06-2019 Depression screening Damari Denny Talbotton PA -C Work Phone: Start: 09-06-2019 End: 09-06-2019 Scr dep neg, no plan reqd Damari kelly PA-C Work Phone: Start: 03-07-2019 End: 03-07-2019 Adarsh inhibitor/arb therapy rxd/currently taken Damari Henson PA-C Work Phone: Start: 03-07-2019 End: 03-07-2019 Documentation of treatment for nephropathy Damari Henson PA-C Work Phone: Start: 03-07-2019 End: 03-07-2019 Foot examination performed Damari Calvo lls PA-C Work Phone: Start: 03-07-2019 End: 03-07-2019 Most recent hemoglobin a1c level gt 7.0-9.0 % Damari Henson PA-C Work Phone: Start: 11-16-2018 End: 11-16-2018 Most recent hemoglobin a1c level gt 7.0-9.0 % Damari Henson PA-C Work Phone: Start: 08-18-2018 End: 08-18-2018 Most recent diastolic blood pressure 80-89 mm hg Damari Henson PA-C Work Phone: Start: 08-18-2018 End: 08-18-2018 Most recent systolic blood pres>/equal 140 mm hg Damari Henson PA-C Work Phone: Start: 06-14-2018 End: 06-14-2018 Bone density scan Itzel Pickett MA Start: 05-16-2018 End: 05-16-2018 Microscopic examination of cervical Papanicolaou smear Itzel Pickett MA Start: 05-09-2018 End: 05-09-2018 Dilated retinal exam w/evidence of retinopathy Damari Henson PA-C Work Phone: Start: 05-09-2018 End: 05-09-2018 Most recent hemoglobin a1c level gt 7.0-9.0 % Damari Henson PA-C Work Phone: Start: 02-09-2018 End: 02-09-2018 Body mass index documented Damari D Hi lls PA-C Work Phone: Start: 02-09-2018 End: 02-09-2018 Dilated retinal exam w/evidence of retinopathy Damari Henson PA-C Work Phone: Start: 02-09-2018 End: 02-09-2018 Most recent hemoglobin a1c level < 7.0% Damari Baldwin Talbotton PA-C Work Phone: Start: 02-09-2018 End: 02-17-2018 Us soft tissue head & neck real time imge docm Damari Baldwin Talbotton PA-C Work Phone: Start: 11-24-2017 End: 11-24-2017 Itzel Pickett MA Start: 11-11-2017 End: 11-11-2017 Body mass index documented Damari Baldwin Hi lls PA-C Work Phone: Start: 11-11-2017 End: 11-11-2017 Dilated retinal exam w/evidence of retinopathy Damari Baldwin Talbotton PA-C Work Phone: Start: 11-11-2017 End: 11-11-2017 Most recent hemoglobin a1c level < 7.0% Damari Baldwin Talbotton PA-C Work Phone: Start: 11-11-2017 End: 11-11-2017 Negative microalbuminuria test result doc&rev Damari Baldwin Talbotton PA-C Work Phone: Start: 09-11-2017 End: 09-11-2017 Bilateral oophorectomy Itzel Pickett MA Start: 08-12-2017 End: 08-12-2017 Most recent diastolic blood pressure < 80 mm hg Damari Baldwin Talbotton PA-C Work Phone: Start: 08-12-2017 End: 08-12-2017 Most recent hemoglobin a1c level < 7.0% Damari Baldwin Talbotton PA-C Work Phone: Start: 08-12-2017 End: 08-12-2017 Most recent systolic blood pressure <130 mm hg Damari Baldwin Talbotton PA-C Work Phone: Start: 08-12-2017 End: 08-12-2017 Body mass index documented Damari Calvo lls PA-C Work Phone: Start: 06-08-2017 End: 06-08-2017 Screening colonoscopy Itzelbell Pickett MA Start: 04-13-2017 End: 04-22-2017 Us pelvic nonobstetric real-time image complete Damari Henson PA-C Work Phone: Start: 04-07-2017 End: 04-12-2017 Ct abdomen & pelvis w/contrast material Damari Baldwin Natividad PA-C Work Phone: Start: 06-01-2016 End: 08-12-2016 EMG Cristobal Ewing Work Phone: Start: 06-01-2016 End: 08-12-2016 Nerve Conduction Cristobal Ewing Work Phone: Start: 06-01-2016 End: 08-12-2016 Radex spine cervical 2 or 3 views Cristobal Ewing Work Phone: Start: 04-08-2016 End: 04-08-2016 Decompression of median nerve Itzel Pickett MA Start: 11-12-2015 End: 11-14-2015 Radex foot complete minimum 3 views Yolanda Bridges MD Work Phone: Start: 10-29-2015 End: 10-29-2015 Removal skn tags stockfeed miller fibrq tags any area upw/15 Damari Baldwin Talbotton PA-C Work Phone: Start: 11-20-2014 End: 11-29-2014 Xtrnl ecg & 48 hr record scan stor w/r&i Damari D Talbotton PA-C Work Phone: Start: 07-19-2013 Colonoscopy Rupali Sage APRN.CNP Work Phone: Start: 06-12-2013 End: 06-14-2013 Hepatobiliary syst imaging including gallbladder Damari Denny Natividad PA-C Work Phone: Start: 06-07-2013 End: 06-12-2013 Us abdominal real time w/image limited Damari Baldwin Natividad PA-C Work Phone: Start: 11-08-2012 End: 11-08-2012 Cholecystectomy Itzel Pickett MA Start: 11-08-2012 End: 11-08-2012 Colonoscopy Itzel Pickett MA Start: 07-12-2012 End: 07-12-2012 Polysom 6/>yrs sleep w/cpap 4/> addl bhavani attnd Mary Benito Work Phone: Start: 05-27-2012 End: 06-20-2012 Polysom 6/>yrs sleep 4/> addl bhavani attnd Yolanda Bridges MD Work Phone: section Itzel Kempbrandie baldwin MARYJO section Dania Nilesh garcía MA section Itzel Murray badlwin MARYJO section Dania Nilesh garcía MARYJO History of decompres hemal of median nerve History of carpal tunnel surgery of left wrist Plan of Treatment Date Care Activity Detail Author Start: 2031 Tetanus vaccination TETANUS [facility] Start: 2031 Urine microalbumin profile DTaP,Tdap,Td Vaccine (3 - Td or Tdap) [facility] Start: 05-10-2028 HPV TESTING HPV TESTING [facility] Start: 05-10-2028 PAP TESTING PAP TESTING [facility] Start: 05-10-2028 Screening for malignant neoplasm of cervix Cervical Cancer Screening [facility] Start: 08-15-2025 End: 08-15-2025 Patient encounter procedure 08/15/2025 10:30 AM EDT Office Visit OB/Gynecology [address] [place] [address] Rupali Sage, PAINTING MANAGER.POWER TRANSFORMER REPAIRER [address] [place] [address] Annual OB/Gynecology Comment on above: Annual Start: 08-15-2025 End: 08-15-2025 Patient encounter procedure 08/15/2025 9:10 AM EDT Appointment Mammogram [address] [place] [address] SCREENING MAMMOGRAM W GLORIA Mammogram Comment on above: SCREENING MAMMOGRAM W GLORIA Start: 08-14-2025 [facility]. Start: 09-03-2025 Screening for malignant neoplasm of breast [facility] Start: 07-10-2025 End: 07-10-2025 Patient encounter procedure Mammogram Comment on above: Encounter for gynecological examination (general) (routine) without abnormal fin... Annual Start: 07-04-2025 DIABETES SCREEN DIABETES SCREEN [facility] Start: 07-04-2025 Diabetes Screening Diabetes Screening [facility] Start: 02-23-2025 [facility] Start: 2025 RSV Vaccine (1 - Risk 60-74 years 1-dose series) RSV Vaccine (1 - Risk 60-74 years 1-dose series) [facility] Start: 08-25-2024 [facility] Start: 07-09-2024 Covid-19 Vaccine ( season) Covid-19 Vaccine ( season) [facility] Start: 07-09-2024 COVID-19 VACCINE () COVID-19 VACCINE () [facility] Start: 07-09-2024 Influenza vaccination Influenza Vaccine (#1) [facility] Start: 05-10-2024 Mammography MAMMOGRAM [facility] Start: 02-18-2024 [facility] Start: 02-03-2024 [facility] Start: 11-12-2023 Anes open proc bones lower leg/ankle/foot nos ANESTH LOWER LEG BONE SURG [facility] Start: 11-12-2023 Ostectomy calcaneus spur w/wo plntar fascial rls REMOVAL OF HEEL SPUR [facility] Start: 11-12-2023 Repair primary open/prq ruptured achilles tendon REPAIR ACHILLES TENDON [facility] Start: 11-12-2023 Application of gauze support bandage [facility] Start: 11-12-2023 Catheterization of vein [facility] Start: 11-12-2023 Elevation of foot of bed [facility] Start: 11-12-2023 Neurovascular assessment [facility] Start: 11-12-2023 Patient discharge [facility] Start: 11-12-2023 Procedure discontinued [facility] Start: 11-12-2023 Vital signs measurements [facility] Start: 11-12-2023 [facility] Start: 07-09-2023 Influenza vaccination [facility] Start: 11-08-2022 DEPRESSION ASSESSMENT DEPRESSION ASSESSMENT [facility] Start: 10-09-2022 Anes rpr ruptured achilles tendon w/wo graft ANESTH ACHILLES TENDON SURG [facility] Start: 10-09-2022 Fasciotomy foot&/toe INCISION OF FOOT FASCIA [facility] Start: 10-09-2022 Repair primary open/prq ruptured achilles tendon REPAIR ACHILLES TENDON [facility] Start: 10-09-2022 Application of ice collar, cap or bag [facility] Start: 10-09-2022 Catheterization of vein [facility] Start: 10-09-2022 Elevation of foot of bed [facility] Start: 10-09-2022 Neurovascular assessment [facility] Start: 10-09-2022 Patient discharge [facility] Start: 10-09-2022 Procedure discontinued [facility] Start: 10-09-2022 Vital signs measurements [facility] Start: 10-09-2022 [facility] Start: 10-03-2022 Mammography MAMMOGRAM [facility] Start: 09-12-2021 COVID-19 VACCINE (3 - Booster for Pfizer series) COVID-19 VACCINE (3 - Booster for Pfizer series) [facility] Start: 09-12-2021 COVID-19 VACCINE (3 - Pfizer series) COVID-19 VACCINE (3 - Pfizer series) [facility] Start: 04-15-2021 Comprehensive metabolic panel [facility]. Start: 01-14-2021 Urine microalbumin profile DTaP,Tdap,Td Vaccine (1 - Tdap) [facility] Start: 09-09-2017 End: 09-09-2017 Mri upper extremity oth than jt w/o contr matrl MRI Non Joint Upper Extremity [facility] Work Phone: Start: 09-09-2017 End: 09-09-2017 Radex hand minimum 3 views X-Ray, Hand [facility] Work Phone: Start: 09-09-2017 End: 09-09-2017 Appointment Appointment [facility] Work Phone: Start: 09-08-2017 End: 09-08-2017 Appointment Appointment [facility] Work Phone: Start: 06-14-2017 End: 06-14-2017 Esophagogastroduodenoscopy transoral diagnostic EGD; diagnostic, including collection of specimen [facility] Work Phone: Start: 06-10-2017 End: 06-10-2017 Colonoscopy flx dx w/collj spec when pfrmd Colonoscopy [facility] Work Phone: Start: 07-19-2016 Colonoscopy COLONOSCOPY [facility] Start: 07-19-2016 COLORECTAL CANCER SCREENING COLORECTAL [facility]ER [facility] [facility] Start: 07-19-2016 Screening for malignant neoplasm of colon [facility] Start: 06-01-2016 End: 08-12-2016 EMG EMG [facility] Work Phone: Start: 06-01-2016 End: 08-12-2016 Nerve Conduction Nerve Conduction [facility] Work Phone: Start: 06-01-2016 End: 08-12-2016 Radex spine cervical 2 or 3 views X-Ray, Spine, Cervical 2-3 views [facility] Work Phone: Start: 2015 Pneumococcal Vaccine: 50+ (2 of 2 - PCV) Pneumococcal Vaccine: 50+ (2 of 2 - PCV) [facility] Start: 2015 SHINGRIX VACCINE (1 of 2) SHINGRIX VACCINE (1 of 2) [facility] Start: 2015 Zoster vaccine hzv live for subcutaneous use ZOSTER (SHINGLES) VACCINE (1 of 2) [facility] Start: 2010 COLOGUARD (FIT-DNA) COLOGUARD (FIT-DNA) [facility] Start: [address] COLONOGRAPHY [facility] Start: 2010 FECAL OCCULT BLOOD FECAL OCCULT BLOOD [facility] Start: 2010 Lipid panel Lipid Screening [facility] Start: 2010 LIPID SCREEN LIPID SCREEN [facility] Start: 2010 Screening for malignant neoplasm of colon [facility] Start: 2010 SIGMOIDOSCOPY SIGMOIDOSCOPY [facility] Start: 2005 Lipid panel LIPID SCREENING [facility] Start: 1995 HPV TESTING HPV TESTING [facility] Start: 1986 PAP TESTING PAP TESTING [facility] Start: 1986 Screening for malignant neoplasm of cervix CERVICAL CANCER SCREENING DISCUSSION [facility] Start: 01-14-1984 Hepatitis B vaccination HEP B VACCINE (1 of 3 - 19+ 3-dose series) [facility] Start: 01-14-1984 Third diphtheria, tetanus and acellular pertussis (DTaP) vaccination TDAP (ADULT) [facility] Start: 01-14-1984 Urine microalbumin profile DTAP,TDAP,TD (1 - Tdap) [facility] Start: 1983 Anxiety Screening Anxiety Screening [facility] Start: 1983 Depression Screening Depression Screening [facility] Start: 1983 HEPATITIS C SCREENING HEPATITIS C SCREENING [facility] Start: 1983 Hepatitis C screening Hepatitis C Screening [facility] Start: 1983 HIV SCREENING HIV SCREENING [facility] Start: 1983 HIV screening HIV Screening [facility] Start: 01-14-1980 HIV screening HIV SCREENING DISCUSSION [facility] Start: 1965 COVID-19 VACCINE (#1) COVID-19 VACCINE (#1) [facility] Start: 1965 HEPATITIS B (1 of 3 - 3-dose series) HEPATITIS B (1 of 3 - 3-dose series) [facility] Start: 1965 Hepatitis C screening HEPATITIS C VIRUS SCREENING [facility] End: 08-10-2025 DBT Breast - bilateral screening JHONATAN SCREENING [facility] Radiology Routine Encounter for gynecological examination (general) (routine) without abnormal findings Encounter for screening mammogram for breast cancer 1 Occurrences starting 07/11/2024 until 08/10/2025 [facility] Work Phone: Comment on above: 1 Occurrences starting 07/11/2024 until 08/10/2025 End: 01-25-2026 DBT Breast - bilateral screening JHONATAN SCREENING W [facility] Radiology Routine Encounter for screening mammogram for malignant neoplasm of breast 1 Occurrences starting 12/26/2024 until 01/25/2026 [facility] Work Phone: Comment on above: 1 Occurrences starting 12/26/2024 until 01/25/2026 End: 05-22-2024 JHONATAN SCREENING W [facility]OR[facility] JHONATAN SCREENING [facility] Radiology Routine Encounter for screening mammogram for malignant neoplasm of breast 1 Occurrences starting 04/23/2023 until 05/22/2024 [facility] Work Phone: Comment on above: 1 Occurrences starting 04/23/2023 until 05/22/2024 End: 06-08-2024 JHONATAN SCREENING W [facility]OR[facility] JHONATAN SCREENING [facility] Radiology Routine Encounter for gynecological examination with abnormal finding Encounter for screening mammogram for breast cancer 1 Occurrences starting 05/10/2023 until 06/08/2024 [facility] Work Phone: Comment on above: 1 Occurrences starting 05/10/2023 until 06/08/2024 Microscopic observat ion [Identifier] in Vaginal fluid by Gram stain BACT/ROBERTO CARLOS VAG GRAM STAIN Microbiology Routine Vulvovaginal itching 05/10/2023 10:30 AM EDT [facility] Work Phone: PAP TEST PAP TEST Lab Rou maurice Encounter for gynecological examination with abnormal finding Encounter for screening for human papillomavirus (HPV) Pap smear for cervical cancer screening 05/10/2023 10:30 AM EDT [facility] Work Phone: Patient Education CARPAL%20TUNNE L%20SU [facility] Work Phone: Patient referral [facility] Work Phone: [facility] Immunizations Immunization Date Immunization Notes Care Provider Katlyn lee 06-26-2021 Charlene Orourke Work Phone: [facility] [employer] [facility] [employer] 2021 TD(adult) unspecifie d formulation Charlene Capone PA-C Work Phone: [facility] [employer] [facility] [employer]. 02-14-2018 typhoid vaccine, molly e, oral Charlene Capone PA-C Work Phone: [facility]. 02-09-2018 typhoid vaccine, unspecified formulation Charlene Capone PA-C Work Phone: [facility] 10-06-2017 hepatitis A vaccine, adult dosage Charlene Capone PA-C Work Phone: [facility] 02-15-2017 hepatitis A vaccine, adult dosage Charlene Capone PA-C Work Phone: [facility] 07-29-2016 influenza, seasonal, injectable Charlene Capone PA-C Work Phone: [facility] 07-29-2016 influenza virus vacc ine, unspecified formulation Rupali Sage APRN.POWER TRANSFORMER REPAIRER Work Phone: [facility] 08-30-2013 pneumococcal Conjuga te, unspecified formulation Charlene Capone PA-C Work Phone: [facility] 08-30-2013 pneumococcal polysaccharide vaccine, 23 valent Charlene Capone PA-C Work Phone: [facility] 08-29-2009 tetanus toxoid, redu ubaldo diphtheria toxoid, and acellular pertussis vaccine, adsorbed Charlene Capone PA-C Work Phone: [facility] Work Phone: Payers Date Payer Category Payer Self-pay [id number] 2023 Blue [facility] PPO [id number] 2023 Unknown [id number] 2014 Unknown [id number] 2006 Unknown [id number] 1965 Unknown [id number]. 2.651 1965 Unknown [id number] [id number]. 2.651 1965 Unknown [id number] [id number]. 2.651 1965 Unknown [id number] 2.840.1.076966.3.579. 2.651 1965 Unknown [id number] .[id number]. 2.651 1965 Unknown [id number] [id number]. 2.651 1965 Unknown [id number] 2.840.1.097670.3.579. 2.651 1965 Unknown [id number] .[id number]. 2.594 1965 Unknown [id number] .[id number]. 2.594 Private Health Insurance [id number] Unknown [id number] Unknown [employer] [id number] Unknown [id number] [id number]. 2.462 Unknown [id number] [id number]. 2.462 Unknown [id number] [id number]. 2.462 Unknown [id number]. 2.462 Unknown [id number]. 2.462 Social History Date Type Detail Facility Start: 09-01-2018 End: 11-02-2023 Tobacco smoking status KSIS Unknown if ever smoked [facility] Start: 1965 Sex Assigned At Female W [facility] Start: 06-12-2020 End: 05-10-2023 Tobacco smoking status KSIS Never smoked tobacco [facility] Work Phone: Start: 06-12-2020 End: 05-10-2023 Tobacco use and exposure Smokeless tobacco non-user [facility] Work Phone: Start: 08-06-2021 End: 03-07-2025 Alcohol intake Current non-drinker of alcohol (finding) [facility] Start: 06-12-2020 History SDOH Financial 5 [facility] Start: 06-12-2020 History SDOH Food Worry 1 [facility] Start: 06-12-2020 History SDOH Transport Med 2 [facility] Start: 1965 Sex Assigned At Not on file [facility] Start: 06-12-2020 End: 05-10-2023 History of Social function [facility] Work Phone: Start: 06-12-2020 End: 05-10-2023 Tobacco use panel [facility] Work Phone: How hard is it for you to pay for the very basics like food, housing, medical care, and heating Not hard at all [facility] Work Phone: (I/We) worried whether (my/our) food would run out before (I/we) got money to buy more. Never true [facility] Work Phone: None. [facility], [employer] [facility] [employer] Never smoker. [facility], [facility]. Start: 02-15-2025 Sex Female (finding) [facility] NEGATED: Highlighted row [facility] Medical Equipment Procedure Code Equipment Code Equipment Origin al Text Equipment Identifier Dates ([id number]) Tendon/ligament bone anchor, bioabsorbable [id number] [facility] Start: 10-09-2022 [id number] Start: 09-06-2019 [id number] Start: 09-06-2019 ([id number]) Tendon/ligament bone anchor, bioabsorbable [id number] [facility] Start: 11-12-2023 Goals Date Patient Goal Desired Activity /State 03-08-2019 Functional Status Date Assessment Result Facility 12-16-2014 Are you deaf, or do you have serious difficulty hearing No 12/16/2014 10:23 AM Laura Farrell RN No [facility] Work Phone: 12-16-2014 Are you blind, or do you have serious difficulty seeing, even when wearing glasses No 12/16/2014 10:23 AM Laura Farrell RN [facility] 12-16-2014 Do you have serious difficulty walking or climbing stairs No 12/16/2014 10:23 AM Laura Farrell RN [facility] 12-16-2014 Do you have difficul ty dressing or bathing No 12/16/2014 10:23 AM Laura Farrell RN [facility] 12-16-2014 Because of a physica l, mental, or emotional condition, do you have difficulty doing errands alone such as visiting a physician's office or shopping No 12/16/2014 10:23 AM Laura Farrell RN No [facility] Mental Status Date Assessment Result Facility 11-12-2023 Cognitive function Lethargic [facility] Work Phone: 10-09-2022 Cognitive function Voice/Name [facility] Work Phone: 10-09-2022 Cognitive function Patient Nimo saldivar Person;Place;Time [facility] Work Phone: 12-16-2014 Because of a physica l, mental, or emotional condition, do you have serious difficulty concentrating, remembering, or making decisions No 12/16/2014 10:23 AM EST Laura Castillo RN No [facility] Clinical Notes 2023 to 03-07-2025 Raissa Griffith APRN.POWER TRANSFORMER REPAIRER - 03/07/2025 8:46 AM EDTTelephone Encounter - Michelle Landry LPN - 12/26/2024 3:39 PM ESTTelephone Encounter - Michelle Landry LPN - 12/26/2024 3:39 PM EST Note Date & Type Note Facility 03-07-2025 Note HNO ID: [id number] Author: RAISSA GRIFFITH APRN.POWER TRANSFORMER REPAIRER Service: ? Author Type: Nurse Practitioner Type: Progress Notes Filed: 03/07/2025 10:13 Note Text: [facility] Subjective HPI HPI Lyndsey Pandey is a 60 year old female who presents today for CC of left shoulder pain. This started few days ago. Has tried otc medication for relief. Symptoms are worsened by rom of shoulder. Risk factors hx of this in past, seen multiple providers for this. Prednisone had helped in past. Denies injury. Some numbness/tingling of left hand at times, not currently .Patient presents with: Pain (Shoulder Pain): Left PAST MEDICAL HISTORY Diagnosis Date Depression Diabetes (HCC) Hypertension Multiple thyroid nodules Osteopenia 2018 left femoral neck Sinus trouble PAST SURGICAL HISTORY Procedure Laterality Date CARPAL TUNNEL Left 2014 DELIVERY ONLY , low transverse x 2 COLONOSCOPY FLX DX W/COLLJ SPEC WHEN PFRMD 07-19-13 and 2016 due 2025 EGD TRANSORAL BIOPSY SINGLE/MULTIPLE 07-19-13 and 2016 FOOT Right 2023 bone spur removed FOOT SURGERY HX Right 2021 HAND LEFT OP SURGERY 2018 LAPAROSCOPY SURG CHOLECYSTECTOMY 06/27/2013 OOPHORECTOMY PARTIAL OR TOTAL Bilateral 2016 ALLERGIES Patient has no known allergies. MEDICATIONS predniSONE (DELTASONE) 10 mg tablet Take 4 tabs daily for 3 days, then 2 tabs daily for 3 days, then 1 tab daily for 3 days with food. dapagliflozin propanediol (FARXIGA) 10 mg tablet Take by mouth. calcium carbonate/vitamin D2 ([id number] ORAL) Take 1 tablet by mouth once daily. TRULICITY 1.5 mg/0.5 mL Inject 4.5 mg subcutaneously. triamcinolone (KENALOG) 0.025 % cream Apply to affected area twice daily. rosuvastatin (CRESTOR) 40 mg tablet Take 40 mg by mouth once daily. NAPROXEN SODIUM (ALEVE ORAL) Take by mouth as needed. BUPROPION HCL (WELLBUTRIN ORAL) Take 100 mg by mouth once daily. ATENOLOL 50 MG TAB Take 100 mg by mouth once daily. FAMILY HISTORY Problem Relation Age of Onset Liver Disease Mother Hypertension Mother Brain Cancer Mother Osteoporosis Father Glaucoma Father Skin Cancer Father Hypertension Father No Known Problems Brother Diabetes Maternal Grandmother Heart Maternal Grandmother Diabetes Maternal Grandfather Heart Maternal Grandfather Thyroid Paternal Grandmother Osteoporosis Paternal Grandmother Glaucoma Paternal Grandmother Thyroid Paternal Aunt Glaucoma Paternal Uncle Social History Tobacco Use Smoking status: Never Smokeless tobacco: Never Vaping Use Vaping status: Never Used Substance Use Topics Alcohol use: No Drug use: Never Review of Systems Objective BP 128/78 Pulse 82 Temp 36.4 ?C (97.5 ?F) (Tympanic) Resp 16 Wt 82.2 kg (181 lb 3.5 oz) SpO2 99% BMI 30.05 kg/m? Physical Exam Constitutional: General: She is not in acute distress. Appearance: She is not toxic-appearing or diaphoretic. HENT: Head: Normocephalic and atraumatic. Pulmonary: Effort: Pulmonary effort is normal. No accessory muscle usage or respiratory distress. Musculoskeletal: Arms: Neurological: Mental Status: She is alert and oriented to person, place, and time. {ASSESSMENT/PLAN: 1. Acute pain of left shoulder - ICD9: 719.41, ICD10: M25.512 -use medication as prescribed -follow up if symptoms persist, worsen, change - PREDNISONE 10 MG TABLET Raissa Griffith APRN.POWER TRANSFORMER REPAIRER Disposition The patient was discharged. Procedures [facility] 03-07-2025 History of Presen t illness Narrative Images from the original note were not included. [facility] Subjective HPI HPI Lyndsey Pandey is a 60 year old female who presents today for CC of left shoulder pain. This started few days ago. Has tried otc medication for relief. Symptoms are worsened by rom of shoulder. Risk factors hx of this in past, seen multiple providers for this. Prednisone had helped in past. Denies injury. Some numbness/tingling of left hand at times, not currently .Patient presents with: Pain (Shoulder Pain): Left PAST MEDICAL HISTORY Diagnosis Date Depression Diabetes (HCC) Hypertension Multiple thyroid nodules Osteopenia 2018 left femoral neck Sinus trouble PAST SURGICAL HISTORY Procedure Laterality Date CARPAL TUNNEL Left 2014 DELIVERY ONLY , low transverse x 2 COLONOSCOPY FLX DX W/COLLJ SPEC WHEN PFRMD 07-19-13 and 2016 due 2025 EGD TRANSORAL BIOPSY SINGLE/MULTIPLE 07-19-13 and 2015 FOOT Right 2023 bone spur removed FOOT SURGERY HX Right 2021 HAND LEFT OP SURGERY 2018 LAPAROSCOPY SURG CHOLECYSTECTOMY 06/27/2013 OOPHORECTOMY PARTIAL OR TOTAL Bilateral 2016 ALLERGIES Patient has no known allergies. MEDICATIONS predniSONE (DELTASONE) 10 mg tablet Take 4 tabs daily for 3 days, then 2 tabs daily for 3 days, then 1 tab daily for 3 days with food. dapagliflozin propanediol (FARXIGA) 10 mg tablet Take by mouth. calcium carbonate/vitamin D2 (PDPRLOK-122-I ORAL) Take 1 tablet by mouth once daily. TRULICITY 1.5 mg/0.5 mL Inject 4.5 mg subcutaneously. triamcinolone (KENALOG) 0.025 % cream Apply to affected area twice daily. rosuvastatin (CRESTOR) 40 mg tablet Take 40 mg by mouth once daily. NAPROXEN SODIUM (ALEVE ORAL) Take by mouth as needed. BUPROPION HCL (WELLBUTRIN ORAL) Take 100 mg by mouth once daily. ATENOLOL 50 MG TAB Take 100 mg by mouth once daily. FAMILY HISTORY Problem Relation Age of Onset Liver Disease Mother Hypertension Mother Brain Cancer Mother Osteoporosis Father Glaucoma Father Skin Cancer Father Hypertension Father No Known Problems Brother Diabetes Maternal Grandmother Heart Maternal Grandmother Diabetes Maternal Grandfather Heart Maternal Grandfather Thyroid Paternal Grandmother Osteoporosis Paternal Grandmother Glaucoma Paternal Grandmother Thyroid Paternal Aunt Glaucoma Paternal Uncle Social History Tobacco Use Smoking status: Never Smokeless tobacco: Never Vaping Use Vaping status: Never Used Substance Use Topics Alcohol use: No Drug use: Never Review of Systems Objective BP 128/78 Pulse 82 Temp 36.4 C (97.5 F) (Tympanic) Resp 16 Wt 82.2 kg (181 lb 3.5 oz) SpO2 99% BMI 30.05 kg/m Physical Exam Constitutional: General: She is not in acute distress. Appearance: She is not toxic-appearing or diaphoretic. HENT: Head: Normocephalic and atraumatic. Pulmonary: Effort: Pulmonary effort is normal. No accessory muscle usage or respiratory distress. Musculoskeletal: Arms: Neurological: Mental Status: She is alert and oriented to person, place, and time. {ASSESSMENT/PLAN: 1. Acute pain of left shoulder - ICD9: 719.41, ICD10: M25.512 -use medication as prescribed -follow up if symptoms persist, worsen, change - PREDNISONE 10 MG TABLET Raissa Griffith APRN.POWER TRANSFORMER REPAIRER Disposition The patient was discharged. Procedures documented in this encounter [facility] 12-26-2024 Telephone encounter Note Patient called requesting an order for a screening mammmogram with gloria. Last yearly exam was 07/11/2024 [facility] 12-26-2024 Miscellaneous Notes Patient called requesting an order for a screening mammmogram with gloria. Last yearly exam was 07/11/2024 documented in this encounter [facility] 09-11-2024 History of Presen t illness Narrative [facility] Office Visit Chief Complaint Patient presents with Left Shoulder - Pain CC: she is a 59 y.o. female c/o L shoulder pain. Onset/SARA? Pain started 1wk ago the day after she was forcing a steering wheel to move. States that her trap/shoulder blade is the most painful. Pain shoot down to her hand, causes tingling in her fingers, and shoots to her neck. States that any movement hurts, pain is constant. Txs: heat, ice, 800 mg advil PHx? BL shoulder arthritis HPI Lyndsey Pandey is a 59 y.o. female who [facility] for the above. Here for left shoulder pain. Began about 1 week ago after having to force her steering wheel. No pain at that time, but noted pain the next day. She localizes her pain to the trap and the shoulder blade. It will occasionally radiates down the arm. With some tinging into her fingers. Worsens through out the day and with any use. Has tried, ice, heating and advil. RHD. Review of Systems No fever or chills. No rashes. No difficulty breathing, cough, wheeze or shortness of breath. No chest pain, pressure or palpitations. Normal bowel movements. Normal urination. No numbness or tingling. No other joint problems today. Past Medical History Past medical, surgical, family, and social histories have been reviewed and update with the patient today and are located elsewhere in the medical record. Physical Exam No acute distress. Normocephalic/atraumatic. Symmetric pulses in bilateral upper extremities and lower extremities noted. Symmetric light touch sensation in bilateral upper extremities and lower extremities noted. Skin: Warm and dry: yes, skin rashes: no, erythema: no, induration: no L Shoulder Tenderness: through out the left trap and along the medial aspect of the scapula There is scapular dyskinesia. Forward elevation: normal and symmetric Abduction: normal and symmetric External rotation: normal and symmetric Internal rotation: normal and symmetric Infraspinatus: 5/5 Supraspinatus: 5/5 Subscapularis: 5/5 Neer's: - Gamez-Simon: - Speeds: - O'manjit's: - 2+ radius pulses Distal sensation intact. MSK Neck exam: ROM is normal. With some pulling of the left trap with looking down. abduction strength: 5/5 Biceps: 5/5 Triceps: 5/5 Wrist extension: 5/5 Wrist flexion: 5/5 Finger abduction: 5/5 Sensation is intact through out the bilateral arms 2+ distal radial pulses bilaterally Imaging: X-rays of the left shoulder were obtained today and independently reviewed by me, which demonstrated calcific tendonopathy, chronic labral pathology and severe degeneration of the AC joint. Assessment/Plan ICD-10-CM 1. Left shoulder pain, unspecified chronicity M25.512 XR SHOULDER LEFT 2+ VIEWS predniSONE 50 MG tablet Methocarbamol 500 MG tablet - Discussed the diagnoses with the patient in detail at today's visit. Here for posterior left shoulder pain, likely due to trap strain and scapular dyskinesia vs radiculopathy given some tingling symptoms down her arm. She will trial a short course of a prednisone burst for pain, she was counseled on monitoring her BG closely and calling her PCP if her sugars become elevated. She was also provided a script for robaxin. We discussed formal PT vs HEP, she elected to continue HEP. She will follow up with her PCP. - I reviewed the imaging obtained today with the patient Alondra Little MD Emergency Medicine Sports Medicine documented in this encounter [facility] 09-11-2024 Instructions Alondra Little MD - 09/11/2024 12:40 PM EST Check your sugars regularly while taking the prednisone. Hold on ibuprofen while taking the prednisone, ok to restart it after you finish the prednisone. Ok to continue tylenol. You can take 1000mg of tylenol at a time every 6-8 hours. Do not exceed 3000mg in a day. You can also use a lidocaine patch or topical creams and massage the top of your left shoulder to help loosen the muscle. Continue home exercises and follow up with your primary care physician documented in this encounter [facility] 07-11-2024 Note Formatting of this n ote might be different from the original. July 11, 2024 PID: [id number] Lyndsey Pandey [id number] [place] [address] Dear Ms. Pandey, We are pleased to inform you that the results of your recent breast imaging exam on 07/11/2024 are normal. Breast tissue can be either dense or not dense. Dense tissue makes it harder to find breast cancer on a mammogram and also raises the risk of developing breast cancer. Your breast tissue is not dense. Talk to your healthcare provider about breast density, risks for breast cancer, and your individual situation. Early detection of cancer is very important. We also understand recommendations regarding breast cancer screening are controversial. Please discuss with your primary care provider which strategy is best for you and whether a mammogram is right for you. Your imaging studies and report will be kept on file at [facility] as part of your permanent medical record and are available for your continuing care. Thank you for allowing us to help in meeting your health care needs. Sincerely, Dr. Torres Interpreting Radiologist [facility] (Normal over 40) [facility] 07-11-2024 Miscellaneous Notes July 11, 2024 PID: [id number] Lyndsey Pandey [address] [place] [address] Dear Ms. Pandey, We are pleased to inform you that the results of your recent breast imaging exam on 07/11/2024 are normal. Breast tissue can be either dense or not dense. Dense tissue makes it harder to find breast cancer on a mammogram and also raises the risk of developing breast cancer. Your breast tissue is not dense. Talk to your healthcare provider about breast density, risks for breast cancer, and your individual situation. Early detection of cancer is very important. We also understand recommendations regarding breast cancer screening are controversial. Please discuss with your primary care provider which strategy is best for you and whether a mammogram is right for you. Your imaging studies and report will be kept on file at [facility] as part of your permanent medical record and are available for your continuing care. Thank you for allowing us to help in meeting your health care needs. Sincerely, Dr. Torres Interpreting Radiologist [facility] (Normal over 40) documented in this encounter [facility] 07-11-2024 History of Presen t illness Narrative Radiology Service Progress Note PATIENT NAME: Lyndsey Pandey DATE OF SERVICE: July 11, 2024 TIME: 9:15 AM PATIENT IDENTITY VERIFICATION COMPLETED USING TWO (2) IDENTIFIERS: Name and Date of confirmed by patient verbally. FALL SCREENING: Has the patient had 2 falls in the last year or 1 fall with injury or currently using an Ambulatory Assistive Device (Walker, Cane, Wheelchair, Crutches, etc.)? No PATIENT GENDER DATA: Female. status: : No status: NO. PATIENT RELEVANT IMPLANT DATA REVIEWED: Not Applicable PATIENT PRESENTS WITH AN IMPLANTABLE OR ATTACHED DYNAMITE PACKING MACHINE FEEDER: No RADIOLOGY DEPARTMENT: Mammography PERIPHERAL IV DATA: Not applicable SIGNED BY: Rocio Wheeler July 11, 2024 9:15 AM documented in this encounter [facility] 07-11-2024 Note HNO ID: [id number] Author: ROBIN MAYFIELD Mammo Tech Service: ? Author Type: Technologist Type: Progress Notes Filed: 07/11/2024 09:15 Note Text: Radiology Service Progress Note PATIENT NAME: Lyndsey Pandey DATE OF SERVICE: July 11, 2024 TIME: 9:15 AM PATIENT IDENTITY VERIFICATION COMPLETED USING TWO (2) IDENTIFIERS: Name and Date of confirmed by patient verbally. FALL SCREENING: Has the patient had 2 falls in the last year or 1 fall with injury or currently using an Ambulatory Assistive Device (Walker, Cane, Wheelchair, Crutches, etc.)? No PATIENT GENDER DATA: Female. status: : No status: NO. PATIENT RELEVANT IMPLANT DATA REVIEWED: Not Applicable PATIENT PRESENTS WITH AN IMPLANTABLE OR ATTACHED DYNAMITE PACKING MACHINE FEEDER: No RADIOLOGY DEPARTMENT: Mammography PERIPHERAL IV DATA: Not applicable SIGNED BY: Rocio Wheeler July 11, 2024 9:15 AM [facility] 07-11-2024 Note HNO ID: [id number] Author: RUPALI SAGE APRN.POWER TRANSFORMER REPAIRER Service: ? Author Type: Nurse Practitioner Type: Progress Notes Filed: 07/11/2024 09:56 Note Text: Mexican Food Maker Hand offered:Patient timo Solorio is a 59 year old who presents for an annual gynecologic exam without complaints. Postmenopausal: Yes since age 45 HRT use: No. Last Pap: 05/10/2023 normal HPV: 05/10/2023 negative History of abnormal pap: No Last mammogram: today, pending History of abnormal mammogram: No Sexually active: No History of STDS: None Time with current partner: long-term History of ovarian cyst: Yes, had oophorectomy BSO 2016 Vaginal dryness - Yes, better when remembers to use Reveree Documentation from previous visit of 05/10/2023 was copied and pasted, documentation has been reviewed and edited as necessary for today's visit. 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 History Comments: Sexual Activity: Not Currently; Male Contraception: No contraception data on record PAST MEDICAL HISTORY No date: Depression No date: Diabetes (HCC) No date: Hypertension No date: Multiple thyroid nodules 2018: Osteopenia Comment: left femoral neck No date: Sinus troublePAST SURGICAL HISTORY 2015: CARPAL TUNNEL; Left No date: DELIVERY ONLY Comment: , low transverse x 2 07-19-13 and 2016: COLONOSCOPY FLX DX W/COLLJ SPEC WHEN PFRMD Comment: due 202507-19-13 and 2015: EGD TRANSORAL BIOPSY SINGLE/MULTIPLE 2023: FOOT; Right No date: FOOT SURGERY HX; Right Comment: 2021 2018: HAND LEFT OP SURGERY 06/27/2013: LAPAROSCOPY SURG CHOLECYSTECTOMY 2016: OOPHORECTOMY PARTIAL OR TOTAL; Bilateral FAMILY HISTORY Problem Relation Age of Onset [...] Never Smokeless tobacco: Never Vaping Use Vaping status: Never Used Substance Use Topics Alcohol use: No Drug use: Never REVIEW OF SYSTEMS Abdomen: No abdominal pain, nausea, vomiting, diarrhea, or constipation. No bloating, early satiety, indigestion, or increased flatulence. Bladder: No dysuria, gross hematuria, urinary frequency, urinary urgency, or incontinence Breast: No breast lumps, nipple d/c, overlying skin changes, redness or skin retraction Allergies and current medication updated:Yes EXAM: BP 122/76 Resp 16 Ht 5' 5.118 (1.65m) Wt 176 lb 3.2 oz (79.9kg) BMI 29.22 kg/(m2). GENERAL: pleasant, female in no apparent distress HEENT: Normocephalic, atraumatic, mucus membranes moist, and no lesions NECK: Supple, full range of motion, no adenopathy, and thyroid with known nodules that are monitored DERMATOLOGY: Normal, without lesions, non-icteric, and non-hirsute BREAST: soft, non-tender, symmetric, no dominant mass, normal nipple-areolar complex, no lymphadenopathy, and no nipple discharge CHEST: Normal inspiratory effort ABDOMEN: soft, non-tender, and no masses PELVIC: external genitalia normal, normal Bartholin's glands, urethra, Longstreet's glands, no vulvar lesions, no cervical lesions, physiologic discharge present, normal appearing perineal body and perianal region BIMANUAL: uterus normal size, shape and consistency, no adnexal masses, and non-tender RECTOVAGINAL: deferred. NEURO: alert and oriented x3,exam grossly non-focal EXTREMITIES: normal ASSESSMENT/PLAN: 1) Health maintenance: Pap/HPV up to date. Mammogram ordered Mammogram up to date Nutrition, exercise and routine health maintenance exams reviewed. Calcium/Vitamin D supplementation information provided. Colon cancer screening: up to date with screening due 2026 BMD: followed by endocrinology 04/2024 osteopenia left femoral neck -2.2 2) Follow up one year or sooner as needed Rupali Sage APRN.[facility] 07-11-2024 History of Presen t illness Narrative Mexican Food Maker Hand offered:Patient timo Solorio is a 59 year old who presents for an annual gynecologic exam without complaints. Postmenopausal: Yes since age 45 HRT use: No. Last Pap: 05/10/2023 normal HPV: 05/10/2023 negative History of abnormal pap: No Last mammogram: today, pending History of abnormal mammogram: No Sexually active: No History of STDS: None Time with current partner: long-term History of ovarian cyst: Yes, had oophorectomy BSO 2016 Vaginal dryness - Yes, better when remembers to use Reveree Documentation from previous visit of 05/10/2023 was copied and pasted, documentation has been reviewed and edited as necessary for today's visit. 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 History Comments: Sexual Activity: Not Currently; Male Contraception: No contraception data on record PAST MEDICAL HISTORY No date: Depression No date: Diabetes (HCC) No date: Hypertension No date: Multiple thyroid nodules 2018: Osteopenia Comment: left femoral neck No date: Sinus troublePAST SURGICAL HISTORY 2015: CARPAL TUNNEL; Left No date: DELIVERY ONLY Comment: , low transverse x 2 07-19-13 and 2016: COLONOSCOPY FLX DX W/COLLJ SPEC WHEN PFRMD Comment: due 202507-19-13 and 2015: EGD TRANSORAL BIOPSY SINGLE/MULTIPLE 2023: FOOT; Right No date: FOOT SURGERY HX; Right Comment: 2021 2018: HAND LEFT OP SURGERY 06/27/2013: LAPAROSCOPY SURG CHOLECYSTECTOMY 2016: OOPHORECTOMY PARTIAL OR TOTAL; Bilateral FAMILY HISTORY Problem Relation Age of Onset [...] Never Smokeless tobacco: Never Vaping Use Vaping status: Never Used Substance Use Topics Alcohol use: No Drug use: Never REVIEW OF SYSTEMS Abdomen: No abdominal pain, nausea, vomiting, diarrhea, or constipation. No bloating, early satiety, indigestion, or increased flatulence. Bladder: No dysuria, gross hematuria, urinary frequency, urinary urgency, or incontinence Breast: No breast lumps, nipple d/c, overlying skin changes, redness or skin retraction Allergies and current medication updated:Yes EXAM: BP 122/76 Resp 16 Ht 5' 5.118 (1.65m) Wt 176 lb 3.2 oz (79.9kg) BMI 29.22 kg/(m^2). GENERAL: pleasant, female in no apparent distress HEENT: Normocephalic, atraumatic, mucus membranes moist, and no lesions NECK: Supple, full range of motion, no adenopathy, and thyroid with known nodules that are monitored DERMATOLOGY: Normal, without lesions, non-icteric, and non-hirsute BREAST: soft, non-tender, symmetric, no dominant mass, normal nipple-areolar complex, no lymphadenopathy, and no nipple discharge CHEST: Normal inspiratory effort ABDOMEN: soft, non-tender, and no masses PELVIC: external genitalia normal, normal Bartholin's glands, urethra, Longstreet's glands, no vulvar lesions, no cervical lesions, physiologic discharge present, normal appearing perineal body and perianal region BIMANUAL: uterus normal size, shape and consistency, no adnexal masses, and non-tender RECTOVAGINAL: deferred. NEURO: alert and oriented x3,exam grossly non-focal EXTREMITIES: normal ASSESSMENT/PLAN: 1) Health maintenance: Pap/HPV up to date. Mammogram ordered Mammogram up to date Nutrition, exercise and routine health maintenance exams reviewed. Calcium/Vitamin D supplementation information provided. Colon cancer screening: up to date with screening due 2026 BMD: followed by endocrinology 04/2024 osteopenia left femoral neck -2.2 2) Follow up one year or sooner as needed Rupali Sage APRN.POWER TRANSFORMER REPAIRER documented in this encounter [facility] 02-07-2024 Discharge summary Note Date/Time February 07, 2024 11:33am [facility] [address] [place] [address] [address] [place] [address] / REHABILITATION SERVICES DISCHARGE SUMMARY MR#: [id number] Acct: [id number] Name: LYNDSEY PANDEY Rep #: [id number] : 1965 59 From: Flex De La Cruz PT, ATC Referring DrAdam: AMISHA Brooks Status : REG R Insurance: [employer]M SELF PAY INSURANCE Discharge Summary D/C summary: It has been my pleasure to treat LYNDSEY PANDEY referred by Dr. Mg Brooks, AMISHA, with the diagnosis of L plantar fasciotomy, achilles debridement, and heel spur removal 11/12/23 for a total of 10 visit(s). Discharge Date: Please see the following information for a summary of their discharge status. Subjective Subjective: I think I am ready to be done. I still know w2hen I need to sit down Pain L foot pain: Pain Intensity (Out of 10): 1 Overall Improvement % Improvement: 95 Objective Objective/Function: L foot pain is 1/10 L ankle MMT: DF= 40, PF= 50 #F L ankle DF ROM= 12 #F Pt is I with HEP Goals Goal 1:: Decrease L foot pain x 50% to aid with standing tolerance Goal Progress: Goal Met Goal 2:: Increase L ankle DF ROM x 10 degrees to aid with preventing future episodes of L foot pain Goal 3:: Increase L ankle strength x 10 #F to aid with stair negotiation Goal 4:: I with HEP Goal Progress: Goal Met Plan Plan: Discharge to [facility] D/C Information d/c sentence: If there are questions or concerns regarding this patient's physical therapy, please feel free to call me at [phone]. Thank you for the referral of thispatient. Sincerely, Flex De La Cruz, PT, ATC Balance/Gait/Functional tests Balance/Special Test Scores Lower Extremity Functional Score: 52 Improvement % Improvement: 95 <Electronically signed by Flex De La Cruz PT, ATC> 02/07/24 1133 CC: AMISHA Brooks; PHOEBE Mackey ~ [facility] Signed [facility] Work Phone: 1(542) 310-667601-05-2024 Discharge summary Author Mg Brooks [facility] November 12, 2023 9:41am Note Date/Time November 12, 2023 7: 30am [facility] Medical Records Department [address] [place] [address] Instructions for Home/Discharge Instructions 11/12/23 0729 MR#: [id number] Acct: [id number] Name: LYNDSEY PANDEY JUDI Rep #:[id number] : 1965 58 From: Mg Brooks DPM PCP: PHOEBE Mackey Status:REG [facility] Discharge Instructions Diet Discharge Diet: Light diet - advance as tolerated Activity Weight Bearing Status: No weight bearing (No weightbearing left foot) Keep extremity elevated above heart level: Left Leg (Keep left foot elevated forat least 50 minutes of every hour) Dressing / Incision Call your doctor if your incision/area has: Continuous Slow Oozing, Sudden Increased Bleeding and Foul Smelling Discharge Call your doctor if you observe: Fever of 101 or Higher, Shortness of breath, Chest pain, Increased palpitations (irregular heartbeat), Calf discomfort and Uncontrolled pain Change Dressing in: do not change dressing Remove Dressing in: do not remove dressing Cleanse incision/area with: Keep Dressing Clean & Dry Follow Up Care Please Follow Up With: Mg Brooks DPM When: next week in office, sooner if needed Test Results: Test results from this visit will be discussed in further detail at your follow- up appointment, if applicable. Discharge Plan Admission Attending Provider: Mg Brooks Primary Care Provider: Charlene Capone Discharge Orders/Prescriptions Prescriptions: New oxycodone-acetaminophen [Percocet] 5-325 mg tablet 1 - 2 tab PO Q6H PRN (Reason: pain) 4 Days Qty: 28 0RF Eliquis 2.5 mg tablet 2.5 mg PO Q12H Qty: 30 0RF amoxicillin-pot clavulanate [Augmentin] 500-125 mg tablet 1 tab PO Q12H Qty: 14 0RF No Action bupropion HCl 100 MG tablet 100 mg PO DAILY atenolol 50 MG tablet 100 mg PO DAILY dulaglutide 1.5 MG/0.5 ML pen injector 1.5 mg subcut MO rosuvastatin [Crestor] 40 mg Tablet 40 mg PO DAILY Probiotic 3 billion cell Capsule 3,000 mmu cells PO DAILY Rx Instructions: administer with a meal Farxiga 10 mg Tablet 10 mg PO DAILY Referrals / Follow Up: Charlene Capone PA [Primary Care Provider] - Disposition Disposition (needs filled in before D/C Order can be placed): Home, Self Care 11/12/23 0941<Electronically signed by Mg Brooks DPM>Mg Brooks DPM CC: PHOEBE Mackey ~ Signed [facility] Work Phone: 1(447) 803-883007-05-2023 Miscellaneous Notes* Letter - Mammography Coordinator - 05/12/2023 11:10 AM EDT May 13, 2023 PID: [id number] Lyndsey Pandey [address] [id number] Dear Ms. Dannie, We are pleased to inform you that [...] report will be kept on file at [facility] as part of your permanent medical record and are available for your continuing care. Thank you for allowing us to help in meeting your health care needs. Sincerely, Dr. Malloy Interpreting Radiologist [facility] (Normal over 40) [facility] Instructions* Patient Instructions* Rupali Sage APRN.POWER TRANSFORMER REPAIRER - 05/10/2023 10:07 AM EDT Calcium and Vitamin D Supplementation (from the National Institutes of Health Office of Dietary Supplements 2011) Calcium 1200 mg daily - 600 mg twice a day if taking supplement and Vit D 1000- 2000 IU daily Calcium is required by the [...] history of osteoporosis, are thin, or , orwho take certain medications such as cancer chemotherapy, [...] calcium and are the major food contributors inthe [place]. For example, 8oz of milk (whole, lowfat or skim) contains about 300mg calcium, 8oz of yogurt contains 415mg. Nondairy sources include salmon and sardines and vegetables, such as Nepali cabbage, kale, and broccoli. Foods fortified with [...] acid, calcium carbonate is found in some fvoe-jun-njkovcs antacid products, such as Tums and Rolaids . Depending on its strength, each chewable pill or softchew provides 200 to 400 mg of elemental calcium. The percentage of calcium absorbed depends on the total amount of elemental calcium consumed at onetime. Absorption is highest in doses <500mg. So [...] and maintains adequate blood levels of calcium andphosphate for normal bone growth and bone remodeling. [...] content, and sunscreen are among the factors thataffect UV radiation exposure and vitamin D synthesis. Despite the importance of the sun for vitaminD synthesis, it is prudent to limit exposure [...] available in two forms, D2 (ergocalciferol) and D3(cholecalciferol). The two are equivalent at normal supplement [...] prescribed by your doctor. [facility] History of Present illness Narrative* uRpali Sage APRN.CNP - 05/10/2023 9:04 AM EDT Mexican Food Maker Hand offered: Patient declines. Lyndsey is a 58 [...] L2 SAB0 IAB0 Ectopic0 Multiple0 Live Births0 Oil Changer History LMP: Postmenopausal Age at Menarche: 13 Age at First : Age at Menopause: 45 Oil Changer History Comments: Sexual Activity: Not Currently; Male [...] external genitalia normal, normal Bartholin's glands, urethra, Longstreet's glands, no vulvar lesions, no cervical lesions, [...] date with screening BMD: osteopenia, managed by hygiene teacher 2. Vulvovaginal itching - ICD9: 698.1, ICD10: [...] results. Rupali Sage APRN.CNP [facility] in [facility] Miscellaneous Notes* Telephone Encounter - Danielle Mahajan RN - 04/23/2023 10:35 AM EDT PSS: Please contact patient to schedule mammogram. Thank you. * Telephone Encounter - Rupali Sage APRN.CNP - 04/23/2023 10:32 AM EDT Order filed. Please notify pt. Rupali Sage, PAINTING MANAGER.POWER TRANSFORMER REPAIRER * Telephone Encounter - Danielle Mahajan RN - 04/23/2023 10:18 AM EDT Patient has upcoming annual exam on 05/10. Please file pended order. Danielle Mahajan RN * Telephone Encounter - Josselin Brugos - 04/23/2023 10:15 AM EDT Pt asking for mammo orders. Please call to schedule when placed. documented in [facility] Discharge summary Author Leticia Mehta [facility] 2023 10:01am Note Date/Time January 12, 2023 11:4 7am [facility] [address] [place] [address] [address] [place] [address] / REHABILITATION SERVICES DISCHARGE SUMMARY MR#: [id number] Acct: [id number] Name: LYNDSEY PANDEY Rep #: [id number] : 1965 57 From: Leticia Wade Referring Dr.: AMISHA Brooks Status : REG RCR Insurance: AN[employer]M SELF PAY INSURANCE It has been my pleasure to treat LYNDSEY PANDEY referred by Dr. Mg Brooks, AMISHA, with the diagnosis of R s/p Plantar fasciotomy, Debride Achilles, and spur resection 10-09-22 for a total of 9 visit(s). Discharge Date: 01/12/23 Please see the following information for a summary of their discharge status. Subjective: Pt reports that she feels ok to continue on her own. She is sore ifshe is on it too long but other than that she feels ok. R achilles pain Pain Intensity (Out of 10): 1 R heel pain Pain Intensity (Out of 10): 1 % Improvement: 90 Objective/Function: B heel and toe raises. Gait: walks with slight increase instance time on the L but much improved. Ankle AROM R ankle AROM: DF 10, PF 52,INV 22, EV 9. SLB R 20 sec. Pt did not want to exercise today and will stretchat home. Goal 1:: I HEP Goal Progress: Goal Met Goal 2:: Increase R ankle AROM (at time of the eval: R ankle AROM: DF -10, PF 52, INV 15, EV 4. L ankle AROM DF 2, PF 60, INV 15, EV 3) Goal Progress: Goal Met Goal 3:: Be able to walk with increase stride and heel to toe gait pattern with more equal weight bearing on B LE. Goal Progress: Progressing Goal 4:: Be able to SLB on the R X 20 seconds Goal Progress: Goal Met Goal 5:: Increase R ankle strength to be able to complete 3 X 10 heel and toe raises together B Goal Progress: Goal Met Plan: 2X/ week for 4 weeks for R ankle AROM, gastroc stretching, gait training, balance and proprioception, strengthening with HEP Discharge Comments: DC PT to HEP If there are questions or concerns regarding this patient's physical therapy, please feel free to call me at [phone]. Thank you for the referral of thispatient. Sincerely, Leticia Mehta, FABI Balance/Gait/Functional tests - Balance/Special Test Scores Lower Extremity Functional Score: 72 <Electronically signed by Leticia Mehta MPT> 01/13/23 1001 CC: AMISHA Brooks; PHOEBE Capone ~ Signed [facility] Work Phone: Evaluation noteNo assessment information available [facility] Work Phone: Evaluation note* Diagnosis Encounter for screening mammogram for malignant neoplasm of breast- Primary Other screening mammogram [facility] [place] [facility] Diagnosis Encounter for gynecological examination with abnormal finding- Primary Routine gynecological examination Vulvovaginal itching Pruritus of genital organs Postmenopausal atrophic vaginitis Encounter for screening for human papillomavirus (HPV) Special screening examination for human papillomavirus (HPV) Pap smear for cervical cancer screening Screening for malignant neoplasm of the cervix Encounter for screening mammogram for breast cancer [facility] [place] [facility]* Diagnosis Encounter for gynecological examination (general) (routine) without abnormal findings- Primary Encounter for screening mammogram for breast cancer [facility] [place] [facility]* Diagnosis Encounter for screening mammogram for malignant neoplasm of breast Other screening mammogram documented in this encounter [facility] note* Diagnosis Left shoulder pain, unspecified chronicity- Primary Left shoulder pain, unspecified chronicity [facility] [place] [facility] Diagnosis Left shoulder pain, unspecified chronicity [facility]* Diagnosis Encounter for screening mammogram for malignant neoplasm of breast- Primary Other screening mammogram documented in this encounter [facility] note* Diagnosis Acute pain of left shoulder- Primary documented in this encounter [facility] for referral (narrative)* Diagnostic Procedure Only (Routine) - Authorized Specialty Diagnoses / Procedures Referred By Akila wade Referred To Contact [facility] Diagnoses Encounter for screening mammogram for malignant neoplasm of breast Procedures JHONATAN SCREENING W GLORIA SCREENING DIGITAL BREAST TOMOSYNTHESIS BI SCREENING MAMMOGRAPHY BI 2-VIEW BREAST INC Rupali Bee APRN.CNP [address] [place] [id number] [facility] [address] [place] [address] Referral ID Status Reason Start Date Expiration Date Visits Requested Visits Authorized [id number] Authorized Auto-Generat ed Referral 04/23/2023 05/22/2024 1 1 [facility] for referral (narrative)* Diagnostic Procedure Only (Routine) - Pending Review Specialty Diagnoses / Procedures Referred By Akila wade Referred To Contact [facility] Diagnoses Encounter for gynecological examination with abnormal finding Encounter for screening mammogram for breast cancer Procedures JHONATAN SCREENING W GLORIA SCREENING DIGITAL BREAST TOMOSYNTHESIS BI SCREENING MAMMOGRAPHY BI 2[facility]VIEW BREAST INC Rupali Bee APRN.CNP [address] [place] [address] [facility] [address] [place] [address] Referral ID Status Reason Start Date Expiration Date Visits Requested Visits Authorized [id number] Pending Review Auto-Generat ed Referral 05/10/2023 06/08/2024 1 1 T [facility] for referral (narrative)* Diagnostic Procedure Only (Routine) - Authorized Specialty Diagnoses / Procedures Referred By Contac t Referred To Contact [facility] Diagnoses Encounter for gynecological examination (general) (routine) without abnormal findings Encounter for screening mammogram for breast cancer Procedures JHONATAN SCREENING W GLORIA SCREENING DIGITAL BREAST TOMOSYNTHESIS BI SCREENING MAMMOGRAPHY BI 2-VIEW BREAST INC Rupali Bee APRN.CNP [address] [place] [address] [facility] [address] [place] [address] Referral ID Status Reason Start Date Expiration Date Visits Requested Visits Authorized [id number] Authorized Auto-Generat ed Referral 07/11/2024 08/10/2025 1 1 T [facility] for referral (narrative)* Diagnostic Procedure Only (Routine) - Closed Specialty Diagnoses / Procedures Referred By Akila t Referred To Contact [facility] Diagnoses Encounter for screening mammogram for malignant neoplasm of breast Procedures JHONATAN SCREENING W GLORIA SCREENING DIGITAL BREAST TOMOSYNTHESIS BI SCREENING MAMMOGRAPHY BI 2-VIEW BREAST INC Rupali Bee APRN.POWER TRANSFORMER REPAIRER [address] [place] [address] [facility] [address] [place] [address] Referral ID Status Reason Start Date Expiration Date V isits Requested Visits Authorized [id number] Closed Auto-Generate d Referral 04/24/2024 05/24/2025 1 1 [facility] for referral (narrative)No reason for referral information [facility] Work Phone: Reason for visit Narrative* Diagnostic Procedure Only (Routine) - Closed Specialty Diagnoses / Procedures Referred By Contac t Referred To Contact [facility] Diagnoses Encounter for screening mammogram for malignant neoplasm of breast Procedures JHONATAN SCREENING W GLORIA SCREENING DIGITAL BREAST TOMOSYNTHESIS BI SCREENING MAMMOGRAPHY BI 2-VIEW BREAST INC CAD Rupali Sage, PAINTING MANAGER.POWER TRANSFORMER REPAIRER [address] [place] [address] [facility] [address] [place] [address] Referral ID Status Reason Start Date Expiration Date V isits Requested Visits Authorized [id number] Closed Auto-Generate d Referral 04/24/2024 05/24/2025 1 1 [facility] Summary Purpose Family History No Family History Records Found Relationship Condition Age at Onset Recorded Date/T roxanne son Anxiety Unknown father Osteoporosis Unknown mother Arthritis Unknown Cerebrovascular Accident Status:Active Comment s:Paternal Grandfather. Coronary Artery Disease Status:Active Comments :Maternal Grandfather. Maternal Grandmother. Father. Diabetes Mellitus Type II Status:Active Commen ts:Maternal Grandfather. Maternal Grandmother. Father Still Living Status:Active Hypertension Status:Active Comments:Materna l Grandmother. Maternal Grandfather. Paternal Grandmother. Paternal Grandfather. Hypothyroidism Status:Active Comments:Paterna l Grandmother. Mother Still Living Status:Active Skin Cancer Status:Active Comments:Paterna l Uncle. Paternal Aunt. melanoma Cerebrovascular Accident Status:Active Comment s:Paternal Grandfather. Coronary Artery Disease Status:Active Comments :Maternal Grandfather. Maternal Grandmother. Father. Diabetes Mellitus Type II Status:Active Commen ts:Maternal Grandfather. Maternal Grandmother. Father Still Living Status:Active Hypertension Status:Active Comments:Materna l Grandmother. Maternal Grandfather. Paternal Grandmother. Paternal Grandfather. Hypothyroidism Status:Active Comments:Paterna l Grandmother. Mother Still Living Status:Active Skin Cancer Status:Active Comments:Paterna l Uncle. Paternal Aunt. melanoma Cerebrovascular Accident Status:Active Comment s:Paternal Grandfather. Coronary Artery Disease Status:Active Comments :Maternal Grandfather. Maternal Grandmother. Father. Diabetes Mellitus Type II Status:Active Commen ts:Maternal Grandfather. Maternal Grandmother. Father Still Living Status:Active Hypertension Status:Active Comments:Materna l Grandmother. Maternal Grandfather. Paternal Grandmother. Paternal Grandfather. Hypothyroidism Status:Active Comments:Paterna l Grandmother. Mother Still Living Status:Active Skin Cancer Status:Active Comments:Paterna l Uncle. Paternal Aunt. melanoma Cerebrovascular Accident Status:Active Comment s:Paternal Grandfather. Coronary Artery Disease Status:Active Comments :Maternal Grandfather. Maternal Grandmother. Father. Diabetes Mellitus Type II Status:Active Commen ts:Maternal Grandfather. Maternal Grandmother. Father Still Living Status:Active Hypertension Status:Active Comments:Materna l Grandmother. Maternal Grandfather. Paternal Grandmother. Paternal Grandfather. Hypothyroidism Status:Active Comments:Paterna l Grandmother. Mother Still Living Status:Active Skin Cancer Status:Active Comments:Paterna l Uncle. Paternal Aunt. melanoma Cerebrovascular Accident Status:Active Comment s:Paternal Grandfather. Coronary Artery Disease Status:Active Comments :Maternal Grandfather. Maternal Grandmother. Father. Diabetes Mellitus Type II Status:Active Commen ts:Maternal Grandfather. Maternal Grandmother. Father Still Living Status:Active Hypertension Status:Active Comments:Materna l Grandmother. Maternal Grandfather. Paternal Grandmother. Paternal Grandfather. Hypothyroidism Status:Active Comments:Paterna l Grandmother. Mother Still Living Status:Active Skin Cancer Status:Active Comments:Paterna l Uncle. Paternal Aunt. melanoma Cerebrovascular Accident Status:Active Comment s:Paternal Grandfather. Coronary Artery Disease Status:Active Comments :Maternal Grandfather. Maternal Grandmother. Father. Diabetes Mellitus Type II Status:Active Commen ts:Maternal Grandfather. Maternal Grandmother. Father Still Living Status:Active Hypertension Status:Active Comments:Materna l Grandmother. Maternal Grandfather. Paternal Grandmother. Paternal Grandfather. Hypothyroidism Status:Active Comments:Paterna l Grandmother. Mother Still Living Status:Active Skin Cancer Status:Active Comments:Paterna l Uncle. Paternal Aunt. melanoma Cerebrovascular Accident Status:Active Comment s:Paternal Grandfather. Coronary Artery Disease Status:Active Comments :Maternal Grandfather. Maternal Grandmother. Father. Diabetes Mellitus Type II Status:Active Commen ts:Maternal Grandfather. Maternal Grandmother. Father Still Living Status:Active Hypertension Status:Active Comments:Materna l Grandmother. Maternal Grandfather. Paternal Grandmother. Paternal Grandfather. Hypothyroidism Status:Active Comments:Paterna l Grandmother. Mother Still Living Status:Active Skin Cancer Status:Active Comments:Paterna l Uncle. Paternal Aunt. melanoma Cerebrovascular Accident Status:Active Comment s:Paternal Grandfather. Coronary Artery Disease Status:Active Comments :Maternal Grandfather. Maternal Grandmother. Father. Diabetes Mellitus Type II Status:Active Commen ts:Maternal Grandfather. Maternal Grandmother. Father Still Living Status:Active Hypertension Status:Active Comments:Materna l Grandmother. Maternal Grandfather. Paternal Grandmother. Paternal Grandfather. Hypothyroidism Status:Active Comments:Paterna l Grandmother. Mother Still Living Status:Active Skin Cancer Status:Active Comments:Paterna l Uncle. Paternal Aunt. melanoma Cerebrovascular Accident Status:Active Comment s:Paternal Grandfather. Coronary Artery Disease Status:Active Comments :Maternal Grandfather. Maternal Grandmother. Father. Diabetes Mellitus Type II Status:Active Commen ts:Maternal Grandfather. Maternal Grandmother. Father Still Living Status:Active Hypertension Status:Active Comments:Materna l Grandmother. Maternal Grandfather. Paternal Grandmother. Paternal Grandfather. Hypothyroidism Status:Active Comments:Paterna l Grandmother. Mother Still Living Status:Active Skin Cancer Status:Active Comments:Paterna l Uncle. Paternal Aunt. melanoma Cerebrovascular Accident Status:Active Comment s:Paternal Grandfather. Coronary Artery Disease Status:Active Comments :Maternal Grandfather. Maternal Grandmother. Father. Diabetes Mellitus Type II Status:Active Commen ts:Maternal Grandfather. Maternal Grandmother. Father Still Living Status:Active Hypertension Status:Active Comments:Materna l Grandmother. Maternal Grandfather. Paternal Grandmother. Paternal Grandfather. Hypothyroidism Status:Active Comments:Paterna l Grandmother. Mother Still Living Status:Active Skin Cancer Status:Active Comments:Paterna l Uncle. Paternal Aunt. melanoma Cerebrovascular Accident Status:Active Comment s:Paternal Grandfather. Coronary Artery Disease Status:Active Comments :Maternal Grandfather. Maternal Grandmother. Father. Diabetes Mellitus Type II Status:Active Commen ts:Maternal Grandfather. Maternal Grandmother. Father Still Living Status:Active Hypertension Status:Active Comments:Materna l Grandmother. Maternal Grandfather. Paternal Grandmother. Paternal Grandfather. Hypothyroidism Status:Active Comments:Paterna l Grandmother. Mother Still Living Status:Active Skin Cancer Status:Active Comments:Paterna l Uncle. Paternal Aunt. melanoma Cerebrovascular Accident Status:Active Comment s:Paternal Grandfather. Coronary Artery Disease Status:Active Comments :Maternal Grandfather. Maternal Grandmother. Father. Diabetes Mellitus Type II Status:Active Commen ts:Maternal Grandfather. Maternal Grandmother. Father Still Living Status:Active Hypertension Status:Active Comments:Materna l Grandmother. Maternal Grandfather. Paternal Grandmother. Paternal Grandfather. Hypothyroidism Status:Active Comments:Paterna l Grandmother. Mother Still Living Status:Active Skin Cancer Status:Active Comments:Paterna l Uncle. Paternal Aunt. melanoma Cerebrovascular Accident Status:Active Comment s:Paternal Grandfather. Coronary Artery Disease Status:Active Comments :Maternal Grandfather. Maternal Grandmother. Father. Diabetes Mellitus Type II Status:Active Commen ts:Maternal Grandfather. Maternal Grandmother. Father Still Living Status:Active Hypertension Status:Active Comments:Materna l Grandmother. Maternal Grandfather. Paternal Grandmother. Paternal Grandfather. Hypothyroidism Status:Active Comments:Paterna l Grandmother. Mother Still Living Status:Active Skin Cancer Status:Active Comments:Paterna l Uncle. Paternal Aunt. melanoma Cerebrovascular Accident Status:Active Comment s:Paternal Grandfather. Coronary Artery Disease Status:Active Comments :Maternal Grandfather. Maternal Grandmother. Father. Diabetes Mellitus Type II Status:Active Commen ts:Maternal Grandfather. Maternal Grandmother. Father Still Living Status:Active Hypertension Status:Active Comments:Materna l Grandmother. Maternal Grandfather. Paternal Grandmother. Paternal Grandfather. Hypothyroidism Status:Active Comments:Paterna l Grandmother. Mother Still Living Status:Active Skin Cancer Status:Active Comments:Paterna l Uncle. Paternal Aunt. melanoma Cerebrovascular Accident Status:Active Comment s:Paternal Grandfather. Coronary Artery Disease Status:Active Comments :Maternal Grandfather. Maternal Grandmother. Father. Diabetes Mellitus Type II Status:Active Commen ts:Maternal Grandfather. Maternal Grandmother. Father Still Living Status:Active Hypertension Status:Active Comments:Materna l Grandmother. Maternal Grandfather. Paternal Grandmother. Paternal Grandfather. Hypothyroidism Status:Active Comments:Paterna l Grandmother. Mother Still Living Status:Active Skin Cancer Status:Active Comments:Paterna l Uncle. Paternal Aunt. melanoma Cerebrovascular Accident Status:Active Comment s:Paternal Grandfather. Coronary Artery Disease Status:Active Comments :Maternal Grandfather. Maternal Grandmother. Father. Diabetes Mellitus Type II Status:Active Commen ts:Maternal Grandfather. Maternal Grandmother. Father Still Living Status:Active Hypertension Status:Active Comments:Materna l Grandmother. Maternal Grandfather. Paternal Grandmother. Paternal Grandfather. Hypothyroidism Status:Active Comments:Paterna l Grandmother. Mother Still Living Status:Active Skin Cancer Status:Active Comments:Paterna l Uncle. Paternal Aunt. melanoma Cerebrovascular Accident Status:Active Comment s:Paternal Grandfather. Coronary Artery Disease Status:Active Comments :Maternal Grandfather. Maternal Grandmother. Father. Diabetes Mellitus Type II Status:Active Commen ts:Maternal Grandfather. Maternal Grandmother. Father Still Living Status:Active Hypertension Status:Active Comments:Materna l Grandmother. Maternal Grandfather. Paternal Grandmother. Paternal Grandfather. Hypothyroidism Status:Active Comments:Paterna l Grandmother. Mother Still Living Status:Active Skin Cancer Status:Active Comments:Paterna l Uncle. Paternal Aunt. melanoma Cerebrovascular Accident Status:Active Comment s:Paternal Grandfather. Coronary Artery Disease Status:Active Comments :Maternal Grandfather. Maternal Grandmother. Father. Diabetes Mellitus Type II Status:Active Commen ts:Maternal Grandfather. Maternal Grandmother. Father Still Living Status:Active Hypertension Status:Active Comments:Materna l Grandmother. Maternal Grandfather. Paternal Grandmother. Paternal Grandfather. Hypothyroidism Status:Active Comments:Paterna l Grandmother. Mother Still Living Status:Active Skin Cancer Status:Active Comments:Paterna l Uncle. Paternal Aunt. melanoma Cerebrovascular Accident Status:Active Comment s:Paternal Grandfather. Coronary Artery Disease Status:Active Comments :Maternal Grandfather. Maternal Grandmother. Father. Diabetes Mellitus Type II Status:Active Commen ts:Maternal Grandfather. Maternal Grandmother. Father Still Living Status:Active Hypertension Status:Active Comments:Materna l Grandmother. Maternal Grandfather. Paternal Grandmother. Paternal Grandfather. Hypothyroidism Status:Active Comments:Paterna l Grandmother. Mother Still Living Status:Active Skin Cancer Status:Active Comments:Paterna l Uncle. Paternal Aunt. melanoma Cerebrovascular Accident Status:Active Comment s:Paternal Grandfather. Coronary Artery Disease Status:Active Comments :Maternal Grandfather. Maternal Grandmother. Father. Diabetes Mellitus Type II Status:Active Commen ts:Maternal Grandfather. Maternal Grandmother. Father Still Living Status:Active Hypertension Status:Active Comments:Materna l Grandmother. Maternal Grandfather. Paternal Grandmother. Paternal Grandfather. Hypothyroidism Status:Active Comments:Paterna l Grandmother. Mother Still Living Status:Active Skin Cancer Status:Active Comments:Paterna l Uncle. Paternal Aunt. melanoma Cerebrovascular Accident Status:Active Comment s:Paternal Grandfather. Coronary Artery Disease Status:Active Comments :Maternal Grandfather. Maternal Grandmother. Father. Diabetes Mellitus Type II Status:Active Commen ts:Maternal Grandfather. Maternal Grandmother. Father Still Living Status:Active Hypertension Status:Active Comments:Materna l Grandmother. Maternal Grandfather. Paternal Grandmother. Paternal Grandfather. Hypothyroidism Status:Active Comments:Paterna l Grandmother. Mother Still Living Status:Active Skin Cancer Status:Active Comments:Paterna l Uncle. Paternal Aunt. melanoma Cerebrovascular Accident Status:Active Comment s:Paternal Grandfather. Coronary Artery Disease Status:Active Comments :Maternal Grandfather. Maternal Grandmother. Father. Diabetes Mellitus Type II Status:Active Commen ts:Maternal Grandfather. Maternal Grandmother. Father Still Living Status:Active Hypertension Status:Active Comments:Materna l Grandmother. Maternal Grandfather. Paternal Grandmother. Paternal Grandfather. Hypothyroidism Status:Active Comments:Paterna l Grandmother. Mother Still Living Status:Active Skin Cancer Status:Active Comments:Paterna l Uncle. Paternal Aunt. melanoma Cerebrovascular Accident Status:Active Comment s:Paternal Grandfather. Coronary Artery Disease Status:Active Comments :Maternal Grandfather. Maternal Grandmother. Father. Diabetes Mellitus Type II Status:Active Commen ts:Maternal Grandfather. Maternal Grandmother. Father Still Living Status:Active Hypertension Status:Active Comments:Materna l Grandmother. Maternal Grandfather. Paternal Grandmother. Paternal Grandfather. Hypothyroidism Status:Active Comments:Paterna l Grandmother. Mother Still Living Status:Active Skin Cancer Status:Active Comments:Paterna l Uncle. Paternal Aunt. melanoma Cerebrovascular Accident Status:Active Comment s:Paternal Grandfather. Coronary Artery Disease Status:Active Comments :Maternal Grandfather. Maternal Grandmother. Father. Diabetes Mellitus Type II Status:Active Commen ts:Maternal Grandfather. Maternal Grandmother. Father Still Living Status:Active Hypertension Status:Active Comments:Materna l Grandmother. Maternal Grandfather. Paternal Grandmother. Paternal Grandfather. Hypothyroidism Status:Active Comments:Paterna l Grandmother. Mother Still Living Status:Active Skin Cancer Status:Active Comments:Paterna l Uncle. Paternal Aunt. melanoma Cerebrovascular Accident Status:Active Comment s:Paternal Grandfather. Coronary Artery Disease Status:Active Comments :Maternal Grandfather. Maternal Grandmother. Father. Diabetes Mellitus Type II Status:Active Commen ts:Maternal Grandfather. Maternal Grandmother. Father Still Living Status:Active Hypertension Status:Active Comments:Materna l Grandmother. Maternal Grandfather. Paternal Grandmother. Paternal Grandfather. Hypothyroidism Status:Active Comments:Paterna l Grandmother. Mother Still Living Status:Active Skin Cancer Status:Active Comments:Paterna l Uncle. Paternal Aunt. melanoma Cerebrovascular Accident Status:Active Comment s:Paternal Grandfather. Coronary Artery Disease Status:Active Comments :Maternal Grandfather. Maternal Grandmother. Father. Diabetes Mellitus Type II Status:Active Commen ts:Maternal Grandfather. Maternal Grandmother. Father Still Living Status:Active Hypertension Status:Active Comments:Materna l Grandmother. Maternal Grandfather. Paternal Grandmother. Paternal Grandfather. Hypothyroidism Status:Active Comments:Paterna l Grandmother. Mother Still Living Status:Active Skin Cancer Status:Active Comments:Paterna l Uncle. Paternal Aunt. melanoma Cerebrovascular Accident Status:Active Comment s:Paternal Grandfather. Coronary Artery Disease Status:Active Comments :Maternal Grandfather. Maternal Grandmother. Father. Diabetes Mellitus Type II Status:Active Commen ts:Maternal Grandfather. Maternal Grandmother. Father Still Living Status:Active Hypertension Status:Active Comments:Materna l Grandmother. Maternal Grandfather. Paternal Grandmother. Paternal Grandfather. Hypothyroidism Status:Active Comments:Paterna l Grandmother. Mother Still Living Status:Active Skin Cancer Status:Active Comments:Paterna l Uncle. Paternal Aunt. melanoma Cerebrovascular Accident Status:Active Comment s:Paternal Grandfather. Coronary Artery Disease Status:Active Comments :Maternal Grandfather. Maternal Grandmother. Father. Diabetes Mellitus Type II Status:Active Commen ts:Maternal Grandfather. Maternal Grandmother. Father Still Living Status:Active Hypertension Status:Active Comments:Materna l Grandmother. Maternal Grandfather. Paternal Grandmother. Paternal Grandfather. Hypothyroidism Status:Active Comments:Paterna l Grandmother. Mother Still Living Status:Active Skin Cancer Status:Active Comments:Paterna l Uncle. Paternal Aunt. melanoma Cerebrovascular Accident Status:Active Comment s:Paternal Grandfather. Coronary Artery Disease Status:Active Comments :Maternal Grandfather. Maternal Grandmother. Father. Diabetes Mellitus Type II Status:Active Commen ts:Maternal Grandfather. Maternal Grandmother. Father Still Living Status:Active Hypertension Status:Active Comments:Materna l Grandmother. Maternal Grandfather. Paternal Grandmother. Paternal Grandfather. Hypothyroidism Status:Active Comments:Paterna l Grandmother. Mother Still Living Status:Active Skin Cancer Status:Active Comments:Paterna l Uncle. Paternal Aunt. melanoma Cerebrovascular Accident Status:Active Comment s:Paternal Grandfather. Coronary Artery Disease Status:Active Comments :Maternal Grandfather. Maternal Grandmother. Father. Diabetes Mellitus Type II Status:Active Commen ts:Maternal Grandfather. Maternal Grandmother. Father Still Living Status:Active Hypertension Status:Active Comments:Materna l Grandmother. Maternal Grandfather. Paternal Grandmother. Paternal Grandfather. Hypothyroidism Status:Active Comments:Paterna l Grandmother. Mother Still Living Status:Active Skin Cancer Status:Active Comments:Paterna l Uncle. Paternal Aunt. melanoma Cerebrovascular Accident Status:Active Comment s:Paternal Grandfather. Coronary Artery Disease Status:Active Comments :Maternal Grandfather. Maternal Grandmother. Father. Diabetes Mellitus Type II Status:Active Commen ts:Maternal Grandfather. Maternal Grandmother. Father Still Living Status:Active Hypertension Status:Active Comments:Materna l Grandmother. Maternal Grandfather. Paternal Grandmother. Paternal Grandfather. Hypothyroidism Status:Active Comments:Paterna l Grandmother. Mother Still Living Status:Active Skin Cancer Status:Active Comments:Paterna l Uncle. Paternal Aunt. melanoma Cerebrovascular Accident Status:Active Comment s:Paternal Grandfather. Coronary Artery Disease Status:Active Comments :Maternal Grandfather. Maternal Grandmother. Father. Diabetes Mellitus Type II Status:Active Commen ts:Maternal Grandfather. Maternal Grandmother. Father Still Living Status:Active Hypertension Status:Active Comments:Materna l Grandmother. Maternal Grandfather. Paternal Grandmother. Paternal Grandfather. Hypothyroidism Status:Active Comments:Paterna l Grandmother. Mother Still Living Status:Active Skin Cancer Status:Active Comments:Paterna l Uncle. Paternal Aunt. melanoma Cerebrovascular Accident Status:Active Comment s:Paternal Grandfather. Coronary Artery Disease Status:Active Comments :Maternal Grandfather. Maternal Grandmother. Father. Diabetes Mellitus Type II Status:Active Commen ts:Maternal Grandfather. Maternal Grandmother. Father Still Living Status:Active Hypertension Status:Active Comments:Materna l Grandmother. Maternal Grandfather. Paternal Grandmother. Paternal Grandfather. Hypothyroidism Status:Active Comments:Paterna l Grandmother. Mother Still Living Status:Active Skin Cancer Status:Active Comments:Paterna l Uncle. Paternal Aunt. melanoma Cerebrovascular Accident Status:Active Comment s:Paternal Grandfather. Coronary Artery Disease Status:Active Comments :Maternal Grandfather. Maternal Grandmother. Father. Diabetes Mellitus Type II Status:Active Commen ts:Maternal Grandfather. Maternal Grandmother. Father Still Living Status:Active Hypertension Status:Active Comments:Materna l Grandmother. Maternal Grandfather. Paternal Grandmother. Paternal Grandfather. Hypothyroidism Status:Active Comments:Paterna l Grandmother. Mother Still Living Status:Active Skin Cancer Status:Active Comments:Paterna l Uncle. Paternal Aunt. melanoma Cerebrovascular Accident Status:Active Comment s:Paternal Grandfather. Coronary Artery Disease Status:Active Comments :Maternal Grandfather. Maternal Grandmother. Father. Diabetes Mellitus Type II Status:Active Commen ts:Maternal Grandfather. Maternal Grandmother. Father Still Living Status:Active Hypertension Status:Active Comments:Materna l Grandmother. Maternal Grandfather. Paternal Grandmother. Paternal Grandfather. Hypothyroidism Status:Active Comments:Paterna l Grandmother. Mother Still Living Status:Active Skin Cancer Status:Active Comments:Paterna l Uncle. Paternal Aunt. melanoma Cerebrovascular Accident Status:Active Comment s:Paternal Grandfather. Coronary Artery Disease Status:Active Comments :Maternal Grandfather. Maternal Grandmother. Father. Diabetes Mellitus Type II Status:Active Commen ts:Maternal Grandfather. Maternal Grandmother. Father Still Living Status:Active Hypertension Status:Active Comments:Materna l Grandmother. Maternal Grandfather. Paternal Grandmother. Paternal Grandfather. Hypothyroidism Status:Active Comments:Paterna l Grandmother. Mother Still Living Status:Active Skin Cancer Status:Active Comments:Paterna l Uncle. Paternal Aunt. melanoma Cerebrovascular Accident Status:Active Comment s:Paternal Grandfather. Coronary Artery Disease Status:Active Comments :Maternal Grandfather. Maternal Grandmother. Father. Diabetes Mellitus Type II Status:Active Commen ts:Maternal Grandfather. Maternal Grandmother. Father Still Living Status:Active Hypertension Status:Active Comments:Materna l Grandmother. Maternal Grandfather. Paternal Grandmother. Paternal Grandfather. Hypothyroidism Status:Active Comments:Paterna l Grandmother. Mother Still Living Status:Active Skin Cancer Status:Active Comments:Paterna l Uncle. Paternal Aunt. melanoma Cerebrovascular Accident Status:Active Comment s:Paternal Grandfather. Coronary Artery Disease Status:Active Comments :Maternal Grandfather. Maternal Grandmother. Father. Diabetes Mellitus Type II Status:Active Commen ts:Maternal Grandfather. Maternal Grandmother. Father Still Living Status:Active Hypertension Status:Active Comments:Materna l Grandmother. Maternal Grandfather. Paternal Grandmother. Paternal Grandfather. Hypothyroidism Status:Active Comments:Paterna l Grandmother. Mother Still Living Status:Active Skin Cancer Status:Active Comments:Paterna l Uncle. Paternal Aunt. melanoma Cerebrovascular Accident Status:Active Comment s:Paternal Grandfather. Coronary Artery Disease Status:Active Comments :Maternal Grandfather. Maternal Grandmother. Father. Diabetes Mellitus Type II Status:Active Commen ts:Maternal Grandfather. Maternal Grandmother. Father Still Living Status:Active Hypertension Status:Active Comments:Materna l Grandmother. Maternal Grandfather. Paternal Grandmother. Paternal Grandfather. Hypothyroidism Status:Active Comments:Paterna l Grandmother. Mother Still Living Status:Active Skin Cancer Status:Active Comments:Paterna l Uncle. Paternal Aunt. melanoma Cerebrovascular Accident Status:Active Comment s:Paternal Grandfather. Coronary Artery Disease Status:Active Comments :Maternal Grandfather. Maternal Grandmother. Father. Diabetes Mellitus Type II Status:Active Commen ts:Maternal Grandfather. Maternal Grandmother. Father Still Living Status:Active Hypertension Status:Active Comments:Materna l Grandmother. Maternal Grandfather. Paternal Grandmother. Paternal Grandfather. Hypothyroidism Status:Active Comments:Paterna l Grandmother. Mother Still Living Status:Active Skin Cancer Status:Active Comments:Paterna l Uncle. Paternal Aunt. melanoma Cerebrovascular Accident Status:Active Comment s:Paternal Grandfather. Coronary Artery Disease Status:Active Comments :Maternal Grandfather. Maternal Grandmother. Father. Diabetes Mellitus Type II Status:Active Commen ts:Maternal Grandfather. Maternal Grandmother. Father Still Living Status:Active Hypertension Status:Active Comments:Materna l Grandmother. Maternal Grandfather. Paternal Grandmother. Paternal Grandfather. Hypothyroidism Status:Active Comments:Paterna l Grandmother. Mother Still Living Status:Active Skin Cancer Status:Active Comments:Paterna l Uncle. Paternal Aunt. melanoma Cerebrovascular Accident Status:Active Comment s:Paternal Grandfather. Coronary Artery Disease Status:Active Comments :Maternal Grandfather. Maternal Grandmother. Father. Diabetes Mellitus Type II Status:Active Commen ts:Maternal Grandfather. Maternal Grandmother. Father Still Living Status:Active Hypertension Status:Active Comments:Materna l Grandmother. Maternal Grandfather. Paternal Grandmother. Paternal Grandfather. Hypothyroidism Status:Active Comments:Paterna l Grandmother. Mother Still Living Status:Active Skin Cancer Status:Active Comments:Paterna l Uncle. Paternal Aunt. melanoma Cerebrovascular Accident Status:Active Comment s:Paternal Grandfather. Coronary [...] melanoma Advance Directives No Advanced Directives Records Found Advance Directive Response Recorded Date/ Time Advance Directives Yes July 2:29pm Living Will Yes June 16, 2018 9:42am Power of Interface Analyst Yes June 16 9:42am Advance Directive Response Recorded Date/ Time Advance Directives Yes July 1:29pm Living Will Yes June 16, 2018 8:42am Power of Interface Analyst Yes June 16 8:42am Advance Directive Response Recorded Date/ Time Advance Directives Yes July 1:29pm Living Will No October 02, 2 022 9:03am Power of Interface Analyst No October 02, 2022 9:03am Advance Directive Response Recorded Date/ Time Advance Directives Yes July 2:29pm Living Will No October 02, 2 022 10:03am Power of Interface Analyst No October 02, 2022 10:03am Advance Directive Response Recorded Date/ Time Advance Directives Yes July 1:29pm Living Will No November 02, 2 023 2:23pm Power of Interface Analyst No November 02, 2023 2:23pm Advance Directive Response Recorded Date/ Time Advance Directives Yes July 2:29pm Living Will No November 02, 2 023 3:23pm Power of Interface Analyst No November 02, 2023 3:23pm Advance Directive Response Recorded Date/ Time Advance Directives Yes July 2:29pm Chief Complaint and Reason for Visit Chief Complaint RIGHT HEEL PLANTAR F ASC Chief Complaint RIGHT HEEL PLANTAR F ASC DISORDERS OF BONE DENSITY AND STRUCTURE Chief Complaint RT PLANTAR FASCIOTOM Y PLANTAR FASCIOTOMY. RX HERE Chief Complaint PLANTAR FASCIOTOMY. RX HERE Chief Complaint Plantar fascial fibr omatosis Chief Complaint Plantar fascial fibr omatosis Plantar fasciotomy with resection o Chief Complaint Plantar fasciotomy w ith resection o s/p plantar fasciitis achilles debridement.RX HERE Reason for Referral Specialty Diagnoses / Procedures Referred By Akila t Referred To Contact Diagnoses Left shoulder pain, unspecified chronicity Procedures XR SHOULDER LEFT 2+ VIEWS Alondra Little MD [address] [place] [address] Referral ID Status Reason Start Date Expiration Date V isits Requested Visits Authorized [id number] New Request 09/11/2024 10/06/2025 1 1 Additional Source Comments INFORMATION SOURCE (unrecogn ized section and content) DATE CREATED AUTHOR 09/22/2021 [facility] DATE CREATED AUTHOR AUTHOR'S ORGANIZ ATION 08/18/2022 [facility] DATE CREATED AUTHOR AUTHOR'S ORGANIZ ATION 09/12/2024 [facility] DATE CREATED AUTHOR AUTHOR'S ORGANIZ ATION 02/16/2025 [facility] DATE CREATED AUTHOR AUTHOR'S ORGANIZ ATION 03/15/2025 [facility] Goals (unrecognized section and content) Goals may be documented in a n alternate sectionGoals may be documented in an alternate sectionGoals may be documented in an alternate sectionGoals may be documented in an alternate sectionGoals may be documented in an alternate sectionGoals may be documented in an alternate sectionGoals may be documented in an alternate sectionGoals may be documented in an alternate sectionGoals may be documented in an alternate section Care Teams (unrecognized sec tion and content) Team Status: Active Member Role Status Dates Damari SANDHU PA-C Family Provider Active PHOEBE Mackey Primary Care Provider Active Team Status: Inactive Member Role Status Dates PHOEBE Mackey Primary Care Provider Active Dr. Mg Brooks , [facility] Attending Provider, Referwilmer g Provider Active Team Status: Inactive Member Role Status Dates PHOEBE Mackey Primary Care Provider Active Dr. River Dai DO Attending Provider Active Dr. Rupali Bolton MD Other Provider Active Team Status: Active Member Role Status Dates PHOEBE Mackey Primary Care Provider Active Dr. River Dai DO Attending Provider Active Team Status: Inactive Member Role Status Dates PHOEBE Mackey Primary Care Provider Active Dr. River Dai DO Attending Provider Active Team Status: Inactive Member Role Status Dates PHOEBE Mackey Primary Care Provider Active Dr. River Dai DO Attending Provider, Referring Provider Active [employer] Unit Operator Relationship Specialty Start Date End Date Damari Henson PA-C PCP - General Family Medicine 09/13/16 [employer] Unit Operator Relationship Specialty Start Date End Date Damari Henson PA-C PCP - General Family Medicine 09/13/16 [employer]ized Fiber Unit Operator Relationship Specialty Start Date End Date Damari Henson PA-C PCP - General Family Medicine 09/13/16 [employer]ized Fiber Unit Operator Relationship Specialty Start Date End Date Damari Henson PA-C PCP - General Family Medicine 09/13/16 Team Status: Active Member Role Status Dates PHOEBE Mackey Primary Care Provider Active Dr. 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 River Dai , DO Attending Provider Active Start: October 31, 2024 End: October 31, 2024 Dr. River Dai DO Referring Provider Active Start: October 31, 2024 End: October 31, 2024 Team Status: Inactive Member Role Status Dates PHOEBE Mackey Primary Care Provider Active S tart: February 09, 2025 End: February 09, 2025 Dr. River Dai DO Attending Provider Active Start: February 09, 2025 End: February 09, 2025 Dr. River Dai DO Referring Provider Active Start: February 09, 2025 End: February 09, 2025 Vulcanized Fiber Unit Operator Relationship Specialty Start Date End Date Charlene Capone [address] [place] [address] PCP - General Family Medicine 03/07/25 Source Comments (unrecognize d section and content) In the event this informatio n is protected by the Federal Confidentiality of Alcohol and Drug Abuse Patient Records regulations: The Federal rules restrict any use of the information to criminally investigate or prosecute any alcohol or drug abuse patient.[facility] the event this information is protected by the Federal Confidentiality of Alcohol and Drug Abuse Patient Records regulations: The Federal rules restrict any use of the information to criminally investigate or prosecute any alcohol or drug abuse patient.[facility] the event this information is protected by the Federal Confidentiality of Alcohol and Drug Abuse Patient Records regulations: The Federal rules restrict any use of the information to criminally investigate or prosecute any alcohol or drug abuse patient.[facility] the event this information is protected by the Federal Confidentiality of Alcohol and Drug Abuse Patient Records regulations: The Federal rules restrict any use of the information to criminally investigate or prosecute any alcohol or drug abuse patient.[facility] the event this information is protected by the Federal Confidentiality of Alcohol and Drug Abuse Patient Records regulations: The Federal rules restrict any use of the information to criminally investigate or prosecute any alcohol or drug abuse patient.[facility] the event this information is protected by the Federal Confidentiality of Alcohol and Drug Abuse Patient Records regulations: The Federal rules restrict any use of the information to criminally investigate or prosecute any alcohol or drug abuse patient.[facility] the event this information is protected by the Federal Confidentiality of Alcohol and Drug Abuse Patient Records regulations: The Federal rules restrict any use of the information to criminally investigate or prosecute any alcohol or drug abuse patient.[facility] the event this information is protected by the Federal Confidentiality of Alcohol and Drug Abuse Patient Records regulations: The Federal rules restrict any use of the information to criminally investigate or prosecute any alcohol or drug abuse patient.[facility] the event this information is protected by the Federal Confidentiality of Alcohol and Drug Abuse Patient Records regulations: The Federal rules restrict any use of the information to criminally investigate or prosecute any alcohol or drug abuse patient.[facility] Reason for Visit (unrecogniz ed section and content) Reason Comments Orders Reason Comments Well Woman Reason Comments Pain CC: she is a 59 y.o. female c/o L shoulder pain.Onset/SARA? Pain started 1wk ago the day after she was forcing a steering wheel to move. States that her trap/shoulder blade is the most painful. Pain shoot down to her hand, causes tingling in her fingers, and shoots to her neck. States that any movement hurts, pain is constant. Txs: heat, ice, 800 mg advilPHx? BL shoulder arthritis Specialty Diagnoses / Procedures Referred By Akila t Referred To Contact Diagnoses Left shoulder pain, unspecified chronicity Procedures XR SHOULDER LEFT 2+ VIEWS Alondra Little MD [address] [place] [address] Referral ID Status Reason Start Date Expiration Date V isits Requested Visits Authorized [id number] New Request 09/11/2024 10/06/2025 1 1 Reason Comments Pain (Shoulder Pain) Left FOR RECORDS PERTAINING TO PATIENTS WHO ARE [...] BE BASED ON THE PRIMARY CLINICAL RECORDS. [facility] [employer] [facility]. provides no warranty or guarantee of the accuracy or completeness of information in this document.
[2025-05-05 08:49] LABS: Hemoglobin A1c 7.8 % (<=5.6)
[2025-05-05 08:59] LABS: ALB/GLOB Ratio 1.7 RATIO (0.9-2.4); AST(SGOT) 35 U/L (<=31); Alanine Aminotransfer ALT/SGPT 54 U/L (<=34); Albumin, Serum 4.1 g/dL (3.4-4.8); Alkaline Phosphatase 102 U/L (35-104); Anion Gap 12 (5-15); BUN 13 mg/dL (4-19); BUN/Creat Ratio 16.8 RATIO (10-20); Calcium,Total 9.1 mg/dL (7.6-11.0); Carbon Dioxide 23.9 mmol/L (21.0-32.0); Chloride 105 mmol/L (98-108); Cholesterol 90 mg/dL (<=200); Creatinine, Serum 0.79 mg/dL (0.70-1.20); EST Glomerular Filtration Rate 85 (>60); Globulin 2.5 g/dL (2.2-4.2); Glucose 151 mg/dL (70-99); High Density Lipoprotein 39 mg/dL; Low Density Lipoprotein Calc. 26 mg/dL; Potassium 4.3 mmol/L (3.3-5.1); Protein, Total 6.6 g/dL (5.9-8.4); Sodium Level 141 mmol/L (133-145); Total Bilirubin 0.55 mg/dL (0.00-1.30); Triglycerides 127 mg/dL; Very Low Density Lipoprotein 25 mg/dL (5-40); cholesterol:hdl ratio screen 2.32
== END | disposition home or self-care (01) ==
LOC: LAB 07:02
PROVIDERS: Referring Provider Physician Assistant; Visit Provider Physician Assistant
DX: E11.65 Type 2 diabetes mellitus with hyperglycemia (principal); E78.2 Mixed hyperlipidemia; E04.2 Nontoxic multinodular goiter
CPT/HCPCS: 36415; 80053; 80061; 83036; 84443

== ENCOUNTER → 2025-06-23 | Outpatient (CLI) | payer BC, SELFPAY ==
--- OUTSIDE RECORDS SUMMARY | 2025-06-23 07:46 | XMS RPT_ITS | CCD ---
Author Organization [facility] Care Team Providers Care Brass Roller Name Role Phone Linsey Saul Unavailable [phone] Cristobal Ewing Unavailable DARRELL BALLESTEROS Primary Care Unavailable DARRELL BALLESTEROS Attending Unavailable CAPONE, JHON PA-C Consulting Unavailable DARRELL BALLESTEROS Admitting Unavailable PROVIDER, UNKNOWN Consulting Unavailable CAPONE, JHON PA-C Consulting Unavailable MARIA TERESA PIMENTEL PAC Admitting Unavailable MARIA TERESA PIMENTEL PAC Primary Care Unavailable MARIA TERESA PIMENTEL PAC Attending Unavailable PROVIDER, UNKNOWN Consulting Unavailable CAPONE, JHON PA-C Consulting Unavailable WIETECHA, RIVER G Attending Unavailable WIETECHA, RIVER G Admitting Unavailable WIETECHA, RIVER G Primary Care Unavailable PROVIDER, UNKNOWN Consulting Unavailable MARIA TERESA PIMENTEL PAC Admitting Unavailable MARIA TERESA PIMENTEL PAC Primary Care Unavailable MARIA TERESA PIMENTEL PAC Attending Unavailable CAPONE, JHON PA-C Consulting Unavailable PROVIDER, UNKNOWN Consulting Unavailable CAPONE, JHON PA-C Consulting Unavailable WIETECHA, RIVER G Primary Care Unavailable WIETECHA, RIVER G Attending Unavailable WIETECHA, RIVER G Admitting Unavailable PROVIDER, UNKNOWN Consulting Unavailable CAPONE, JHON PA-C Consulting Unavailable WIETECHA, RIVER G Primary Care Unavailable WIETECHA, RIVER G Attending Unavailable WIETECHA, RIVER G Admitting Unavailable PROVIDER, UNKNOWN Consulting Unavailable CAPONE, JHON PA-C Consulting Unavailable WIETECHA, RIVER G Primary Care Unavailable WIETECHA, RIVER G Attending Unavailable WIETECHA, RIVER G Admitting Unavailable PROVIDER, UNKNOWN Consulting Unavailable Damari Henson PA-C Primary Care Provider [phone] Kurt PA-C, Jhon J Unavailable [phone] Orthopedic Provider Unavailable Unavailable [facility], . Unavailable Neuro-Surgery Provider Unavailable Unavailab martha Sherwood MD ([place]), Dr. Kyle Unavailable Livia MCCAIN, Dr. Salas Unavailable Endocrinology Provider Unavailable Unavailab martha Bridges MD, Yolanda Ignacio Unavailable Damari Henson PA-C Unavailable Lucy BLOOD BANK CREDIT CLERK, Madison Unavailable Mary Benito Unavailable Donis GIMENEZ, Pam Unavailable Vess BLOOD BANK CREDIT CLERK, Nehiwote L Unavailable Unavailable Nereyda RN, Violet Junior Unavailable Unavailable Tegan BLOOD BANK CREDIT CLERK, Yolanda Bullard Unavailable Unavailab martha Valladares BLOOD BANK CREDIT CLERK, Naa Unavailable Unavailabl mateus Kebede PA-C, Patti Rothman Unavailable Breezy GIMENEZ, Damari Shirley Unavailable Unavaila moira Zabala BLOOD BANK CREDIT CLERK, Karen Unavailable Unavailable Yusuf BLOOD BANK CREDIT CLERK, Chely Unavailable Unavailable Martfelipe BLOOD BANK CREDIT CLERK, Valerie Unavailable Unavailable Puente BLOOD BANK CREDIT CLERK, Amanda Unavailable Unavailable Ganesh SIBLEY, Avril Unavailable Unavailable Girish PANDA, Wiliam Ignacio Unavailable Deng SIBLEY, Chely Unavailable Unavailable Piyush SIBLEY, Itzel Unavailable Unavailable Unavailable Unavailable Anand SIBLEY, Dania Unavailable Unavailable Damari Henson PA-C Primary Care Provider [phone] Unavailable Primary Care Provider Unavailabl ALONDRA Perez Attending Unavailable SELF, SELF Referring Unavailable ALONDRA LITTLE Referring Unavailable LAONDRA LITTLE Attending Unavailable Danisha Lal Unavailable Unavailable Hyacinth Mahajan Unavailable Unavailable Jhon De La Cruz Primary Care Provider Dr. River Dai DO Attending Provider Dr. River Dai DO Referring Provider Jhon Capone Primary Care Provider RUPALI SAGE Referring Unavailable DAMARI HENSON Primary Care Unavailable DAMARI HENSON Primary Care Unavailable RUPALI SAGE Attending Unavailable RAISSA GRIFFITH Attending Unavailable CAPONE, JHON Primary Care Unavailable Capone PA, Jhon Primary Care Provider Dr. [place] Dai DO Attending Provider Suhas DODr. Holman Referring Provider Maria Teresa Dooley Attending Provider Maria Teresa Dooley Referring Provider Capone, Jhon Primary Care Unavailable Margarito SANDHU, Maria Teresa Attending Unavailable Maria Teresa Dooley Referring Unavailable Capone, Jhon Primary Care Unavailable Margarito SANDHU, Maria Teresa Consulting Unavailable Suhas, River Attending Unavailable Wietecindy, River Referring Unavailable Capone, Jhon Primary Care Unavailable Wietecha, River Attending Unavailable Wietecha, River Referring Unavailable Capone, Jhon Primary Care Unavailable Wietecha, River Attending Unavailable Wietecha, River Referring Unavailable Capone, Jhon Primary Care Unavailable Wietecha, River Referring Unavailable Wietecha, River Attending Unavailable Allergies Allergy Classification Reported Allergen(s) Allergy Type Date of Onset Reaction(s) Facility NEGATED: Highlighted row has been ruled out! (1 source) 01-28-2022 [facility] NEGATED: Highlighted row has been ruled out! (1 source) [facility] NEGATED: Highlighted row has been ruled out! (1 source) 01-28-2022 [facility] NEGATED: Highlighted row has been ruled out! (1 source) [facility] NEGATED: Highlighted row has been ruled out! (1 source) 01-28-2022 [facility] NEGATED: Highlighted row has been ruled out! (1 source) [facility] NEGATED: Highlighted row has been ruled out! (1 source) 01-28-2022 [facility] NEGATED: Highlighted row has been ruled out! (1 source) [facility] NEGATED: Highlighted row has been ruled out! (1 source) 01-28-2022 [facility] NEGATED: Highlighted row has [...] has been ruled out! (1 source) 01-28-2022 [facility] NEGATED: Highlighted row has been ruled out! (1 source) [facility] NEGATED: Highlighted row has been ruled out! (1 source) 01-28-2022 [facility] NEGATED: Highlighted row has been ruled out! (1 source) [facility] NEGATED: Highlighted row has been ruled out! (1 source) 01-28-2022 [facility] NEGATED: Highlighted row has been ruled out! (1 source) [facility] NEGATED: Highlighted row has been ruled out! (1 source) 01-28-2022 [facility] NEGATED: Highlighted row has been ruled out! (1 source) [facility] NEGATED: Highlighted row has been ruled out! (1 source) 01-28-2022 [facility] NEGATED: Highlighted row has been ruled out! (1 source) [facility] NEGATED: Highlighted row has been ruled out! (1 source) 01-28-2022 [facility] NEGATED: Highlighted row has been ruled out! (1 source) [facility] NEGATED: Highlighted row has been ruled out! (1 source) 01-28-2022 [facility] NEGATED: Highlighted row has been ruled out! (1 source) [facility] NEGATED: Highlighted row has been ruled out! (1 source) 01-28-2022 [facility] NEGATED: Highlighted row has been ruled out! (1 source) [facility] NEGATED: Highlighted row has been ruled out! (1 source) 01-28-2022 [facility] NEGATED: Highlighted row has been ruled out! (1 source) [facility] NEGATED: Highlighted row has been ruled out! (1 source) 01-28-2022 [facility] NEGATED: Highlighted row has been ruled out! (1 source) [facility] NEGATED: Highlighted row has been ruled out! (1 source) 01-28-2022 [facility] NEGATED: Highlighted row has been ruled out! (1 source) [facility] NEGATED: Highlighted row has been ruled out! (1 source) 01-28-2022 [facility] NEGATED: Highlighted row has been ruled out! (1 source) [facility] NEGATED: Highlighted row has been ruled out! (1 source) 01-28-2022 [facility] NEGATED: Highlighted row has been ruled out! (1 source) [facility] NEGATED: Highlighted row has been ruled out! (1 source) 01-28-2022 [facility] NEGATED: Highlighted row has been ruled out! (1 source) [facility] NEGATED: Highlighted row has been ruled out! (1 source) 01-28-2022 [facility] NEGATED: Highlighted row has been ruled out! (1 source) [facility] NEGATED: Highlighted row has been ruled out! (1 source) 01-28-2022 [facility] NEGATED: Highlighted row has been ruled out! (1 source) [facility] NEGATED: Highlighted row has been ruled out! (1 source) 01-28-2022 [facility] NEGATED: Highlighted row has been ruled out! (1 source) [facility] NEGATED: Highlighted row has been ruled out! (1 source) 01-28-2022 [facility] NEGATED: Highlighted row has been ruled out! (1 source) [facility] NEGATED: Highlighted row has been ruled out! (1 source) 01-28-2022 [facility] NEGATED: Highlighted row has been ruled out! (1 source) [facility] NEGATED: Highlighted row has been ruled out! (1 source) 01-28-2022 [facility] NEGATED: Highlighted row has been ruled out! (1 source) [facility] NEGATED: Highlighted row has been ruled out! (1 source) 01-28-2022 [facility] NEGATED: Highlighted row has been ruled out! (1 source) [facility] NEGATED: Highlighted row has been ruled out! (1 source) 01-28-2022 [facility] NEGATED: Highlighted row has been ruled out! (1 source) [facility] NEGATED: Highlighted row has been ruled out! (1 source) 01-28-2022 [facility] NEGATED: Highlighted row has been ruled out! (1 source) [facility] NEGATED: Highlighted row has been ruled out! (1 source) 01-28-2022 [facility] NEGATED: Highlighted row has been ruled out! (1 source) [facility] NEGATED: Highlighted row has been ruled out! (1 source) 01-28-2022 [facility] NEGATED: Highlighted row has been ruled out! (1 source) [facility] NEGATED: Highlighted row has been ruled out! (1 source) 01-28-2022 [facility] NEGATED: Highlighted row has been ruled out! (1 source) [facility] NEGATED: Highlighted row has been ruled out! (1 source) 01-28-2022 [facility] NEGATED: Highlighted row has been ruled out! (1 source) [facility] NEGATED: Highlighted row has been ruled out! (1 source) 01-28-2022 [facility] NEGATED: Highlighted row has been ruled out! (1 source) [facility] NEGATED: Highlighted row has been ruled out! (1 source) 01-28-2022 [facility] NEGATED: Highlighted row has been ruled out! (1 source) [facility] NEGATED: Highlighted row has been ruled out! (1 source) 01-28-2022 [facility] NEGATED: Highlighted row has been ruled out! (1 source) [facility] NEGATED: Highlighted row has been ruled out! (1 source) 01-28-2022 [facility] NEGATED: Highlighted row has been ruled out! (1 source) [facility] NEGATED: Highlighted row has been ruled out! (1 source) 01-28-2022 [facility] NEGATED: Highlighted row has been ruled out! (1 source) [facility] NEGATED: Highlighted row has been ruled out! (1 source) 01-28-2022 [facility] NEGATED: Highlighted row has been ruled out! (1 source) [facility] NEGATED: Highlighted row has been ruled out! (1 source) 01-28-2022 [facility] NEGATED: Highlighted row has been ruled out! (1 source) [facility] NEGATED: Highlighted row has been ruled out! (1 source) 01-28-2022 [facility] NEGATED: Highlighted row has been ruled out! (1 source) [facility] NEGATED: Highlighted row has been ruled out! (1 source) 01-28-2022 [facility] NEGATED: Highlighted row has been ruled out! (1 source) [facility] NEGATED: Highlighted row has been ruled out! (1 source) 01-28-2022 [facility] NEGATED: Highlighted row has been ruled out! (1 source) [facility] NEGATED: Highlighted row has been ruled out! (1 source) 01-28-2022 [facility] NEGATED: Highlighted row has been ruled out! (1 source) [facility] NEGATED: Highlighted row has been ruled out! (1 source) 01-28-2022 [facility] NEGATED: Highlighted row has been ruled out! (1 source) [facility] Medications Current Medications Medication Drug Class(es) Dates Sig (Normalized) Sig (Original) acetaminophen 325 mg / oxyCODONE hydrochloride 5 mg oral tablet (13 sources) Opioid Agonist Start: 11-12-2023 take 1-2 tablets by mouth every six hours as needed for pain Oxycodone-Acetamino phen (Percocet) 5-325 mg tablet Active 1 - 2 {tbl} PO EVERY 6 HOURS as needed for pain 28 4 November 12, 2023 Plantar fascial fibromatosis Plantar fascial fibromatosis Start: 10-09-2022 take 1 tablet by tasha th every six hours Oxycodone-Acetaminophen (Percocet) 5-325 mg tablet Active 1 - 2 TABLET PO EVERY 6 HOURS 28 5 October 09, 2022 Start: 06-21-2018 take 1 tablet by tasha th four times daily as needed Oxycodone-Acetaminophen Active 1 - 2 TABLET PO 4 TIMES DAILY NEEDED 40 5 June 21, 2018 2:43pm amoxicillin 500 mg / clavulanate 125 mg oral tablet (20 sources) Penicillin-class Antibacterial Start: 11-12-2023 Amoxicillin-Pot Clavulanate (Augmentin) 500-125 mg tablet Active 1 {tbl} PO Q12H 14 November 12, 2023 1:00am Start: 10-09-2022 take 1 tablet by tasha th every twelve hours Amoxicillin-Pot Clavulanate (Augmentin) 500-125 mg tablet Active 1 TABLET PO Q12H October 09, 2022 12:00am Start: 01-28-2022 End: 02-07-2022 Start: 12-17-2020 End: 12-27-2020 apixaban 2.5 mg oral tablet (10 sources) Factor Xa Inhibitor Start: 11-12-2023 take 1 tablet by mouth every twelve hours Apixaban (Eliquis) 2.5 mg tablet Active 2.5 mg PO Q12H 30 0 November 12, 2023 1:00am Start: 10-09-2022 take [...] Start: 06-01-2016 ATENOLOL 50 MG TABS ATENOLOL [id number] Cristobal Ewing Start: 12-11-2009 take 2 tablets by mo [facility] once daily Atenolol 50 MG tablet Active 100 mg PO DAILY June 27, 2016 12:00am Comment on above: Take 100 mg by mouth once daily. 24 hr buPROPion hydrochlorid e 150 mg extended release oral tablet (20 sources) Aminoketone Start: 12-27-2024 Start: 12-07-2024 Start: 07-20-2024 Start: 09-23-2023 Start: 06-01-2016 take 1 tablet by tasha once daily Bupropion Hcl 100 MG tablet Active 100 mg PO DAILY June 27, 2016 12:00am Start: 09-08-2012 End: 09-15-2012 Start: 05-16-2012 End: 09-08-2012 Comment on above: Take 100 mg by mouth once daily. calcium carbonate 1500 mg oral tablet (20 sources) calcium carbonate/vitamin D2 ([id number]-B ORAL) (9 sources) take 1 tablet by mouth once daily calcium carbonate/vitamin D2 ([id number] ORAL) Take 1 tablet by mouth once daily. Active take 1 tablet by mouth once alfredo y calcium carbonate/vitamin D2 ([id number]-897-C ORAL) Take 1 tablet by mouth once daily. 0 Active Comment on above: Take [address] tablet [address] [facility] once daily. cefadroxil 500 mg oral capsule (3 sources) Cephalosporin Antibacterial Start: take 500 mg by mouth twice daily Cefadroxil Active 500 MG PO TWICE A DAY June 20, 2018 11:00pm cholecalciferol 0.025 mg oral capsule (20 sources) Vitamin D Start: take 1 capsule by mouth once daily Cholecalciferol (Vitamin D3) (Vitamin D3) 25 mcg (1,000 unit) Capsule Active 25 MCG PO DAILY October 02, 2022 12:00am take 1 tablet by mouth once alfredo y cholecalciferol 50 MCG (2000 UNIT) tablet Take 1 tablet by mouth daily. Active dapagliflozin 10 mg oral tablet (20 sources) Sodium-Glucose Cotransporter 2 Inhibitor Start: 10-02-2022 take 1 tablet by mouth once daily Dapagliflozin Propanediol (Farxiga) 10 mg Tablet Active 10 mg PO DAILY October 02, 2022 1:00am Comment on above: Take by mouth. Dulaglutide (Trulicity) 4.5 MG/0.5ML Solution Auto-injector (2 sources) Dulaglutide (Trulicity) 4.5 MG/0.5ML Solution Auto-injector Inject under the skin once a week. Active Lactobacillus Combination No.4 (Probiotic) 3 billion cell Capsule (11 sources) Start: 10-02-2022 take 3 capsules by [...] 7 days. 42 tablet 09/11/2024 09/18/2024 Active Risco 3-6-9 capsule (2 sources) take 3-6 capsules by mouth once daily Risco 3-6-9 capsule Take by mouth daily. Active [...] Start: 09-11-2024 take 1 tablet by tasha th once daily predniSONE 50 MG tablet Indications: Left shoulder pain, unspecified chronicity Take 1 tablet by mouth daily. 5 tablet 09/11/2024 Active rosuvastatin calcium 40 mg o ral tablet (20 sources) HMG-CoA Reductase Inhibitor Start: 10-02-2022 Comment on above: Take 40 [...] FLUOXETINE HCL 20 MG CAPS FLUOXETINE HCL [id number] Cristobal Ewing gemfibrozil 600 mg oral tablet (20 sources) Peroxisome Proliferator Receptor alpha Agonist Start: 06-01-2016 End: 09-07-2019 ibuprofen 800 mg oral tablet (16 sources) Nonsteroidal Anti-inflammatory Drug Start: 09-22-2017 End: 06-21-2018 take 1 tablet by mouth every eight hours as needed for pain Ibuprofen 800 MG tablet Discontinued 800 mg PO EVERY 8 HOURS NEEDED as needed for Mild-Mod Pain (-5/10) 30 0 September 22, 2017 5:30pm June 21, 2018 3:41pm take 1 tablet by tasha th every six hours as needed Ibuprofen (Advil) 200 MG tablet Take 1 tablet by mouth every 6 hours as needed for Mild Pain. Active INV VITAMIN D3 400 OR 4,000 UNIT (IRB [id number]/) CAPSULE (2 sources) End: 05-10-2023 INV VITAMIN D3 400 OR 4,000 UNIT (IRB [id number]/) CAPSULE Take 1 capsule by mouth one time only. 0 05/10/2023 Discontinued INV VITAMIN D3 4 00 OR 4,000 UNIT (IRB [id number]) CAPSULE Take 1 capsule by mouth one time only. 0 Active Comment on above: Take 1 capsule by mo uth one time only. levoFLOXacin 500 mg oral [...] 06-01-2016 METFORMIN HCL ER (MOD) 500 MG [id number] 2 pills twice daily METFORMIN HCL [id number] Cristobal Ewing Start: 05-13-2016 End: 05-13-2016 Start: [...] Comment on above: Take 1 capsule by [facility] once daily. PEG 0417-[id number]-NACL-NASUL F (2 sources) Osmotic Laxative Start: 06-10-2017 GOLYTELY 227.1 GM SOLR As directed PEG [id number]-NACL-NA SULF [id number] Josue Bhakta MD promethazine hydrochloride 25 mg [...] [Type 2 diabetes mellitus without complications] Onset: 04-15-2021 Chronic Diabetes mellitus with complications (20 [...] site] 10-19-2023 Episodic Other connective tissue disease (14 sources) Dupuytren's contracture; Translations: [Palmar fascial fibromatosis [Dupuytren]] 06-26-2018 Episodic Comment on above: Dupuytren's disease bilateral palms with painful nodularity Other connective tissue disease (10 sources) Calcaneal spur; Translations: [Calcaneal spur, right [...] leg] 08-13-2016 Episodic Other connective tissue disease (5 sources) Plantar fascial fibromatosis; Translations: [Plantar fascial [...] paresthetica 08-13-2016 Chronic Other nervous system disorders (4 sources) Carpal tunnel syndrome of right wrist; [...] index (BMI) 29.0-29.9, adult] 05-09-2018 Episodic Other screening for suspected conditions (not mental disorders or infectious disease) (20 sources) Patient encounter status; Translations: [Encounter for screening mammogram for malignant neoplasm of breast] Onset: Episodic Other skin disorders (20 sources) Alopecia; [...] [Radiculopathy, cervical region] Onset: 6 06-01-2016 Chronic Spondylosis; intervertebral disc disorders; other back problems (20 sources) Neck pain; Translations: [Spinal stenosis in cervical region] Onset: 6 06-01-2016 Episodic Sprains and strains (20 sources) Strain of [...] left wrist] Onset: 07-27-2016 07-31-2016 Episodic Other skin disorders (11 sources) Granulomatosis; Translations: [Cyst of skin] Onset: 09-09-2017 09-09-2017 Episodic Unclassified (1 source) Patient encounter status 12-26-2024 Results Test Name Value Interpretation Reference Range Facility Anion gap in Serum or Plasma Ordered By: Maria Teresa Pimentel on 05-05-2025 Anion gap [Moles/Vol] 12 mmol/L 5-15 [facility] BUN/creatinine ratioOrdered By: Maria Teresa Pimentel on 05-05-2025 Urea nitrogen/Creatinine [Mass ratio] 16.8 mg/mg 10-20 [facility] Bilirubin, totalOrdered By: Maria Teresa Pimentel on 05-05-2025 Bilirubin [Mass/Vol] 0.55 mg/dL 0.00-1.30 [facility] Calculated very low density lipoprotein (VLDL) cholesterol measurementOrdered By: Maria Teresa Pimentel on 05-05-2025 Calculated very low density lipoprotein (VLDL) cholesterol measurement 25 mg/dL 5-40 [facility] Carbon dioxide, total [Moles /volume] in Central venous bloodOrdered By: Maria Teresa Pimentel on 05-05-2025 CO2 [Moles/Vol] 23.9 mmol/L 21.0-32.0 [facility] Chloride assayOrdered By: Josselyn Pimentel on 05-05-2025 Chloride [Moles/Vol] 105 mmol/L 98-108 [facility] Comprehensive Metabolic Prof ilon 05-05-2025 Albumin [Mass/Vol] 4.1 g/dL Normal 3.4-4.8 [facility] [facility] Comment on above: Performed By: #### L 500.7000, L500.4100, L509.1000, L501.9520, L501.5200, L506.1000, L500.4050, L501.9985, L502.000, L501.5280 #### [facility] [address] [place], [place], [id number] Albumin/Globulin [Mass ratio] 1.7 {ratio} Normal 0.9-2.4 [facility] Comment on above: Performed By: #### L 500.7000, L500.4100, L509.1000, L501.9520, L501.5200, L506.1000, L500.4050, L501.9985, L502.000, L501.5280 #### [facility] [address] [place], [place], [id number] ALK PHOS 102 U/L Normal 35-104 [facility] Comment on above: Performed By: #### L 500.7000, L500.4100, L509.1000, L501.9520, L501.5200, L506.1000, L500.4050, L501.9985, L502.000, L501.5280 #### [facility] [address] [place], [place], [phone] ALT [Catalytic activity/Vol] 54 U/L High <=34 [facility] Comment on above: Performed By: #### L 500.7000, L500.4100, L509.1000, L501.9520, L501.5200, L506.1000, L500.4050, L501.9985, L502.000, L501.5280 #### [facility] [address] [place], [place], [phone] ([phone] AST [Catalytic activity/Vol] 35 U/L High <=31 [facility] Comment on above: Performed By: #### L 500.7000, L500.4100, L509.1000, L501.9520, L501.5200, L506.1000, L500.4050, L501.9985, L502.000, L501.5280 #### [facility] [address] [place], [address] Bilirubin [Mass/Vol] 0.55 mg/dL Normal 0.00-1.30 [facility] Comment on above: Performed By: #### L 500.7000, L500.4100, L509.1000, L501.9520, L501.5200, L506.1000, L500.4050, L501.9985, L502.000, L501.5280 #### [facility] [address] [place], [address] [phone]) BUN/CRE 16.8 RATIO Normal 10-20 [facility] Comment on above: Performed By: #### L 500.7000, L500.4100, L509.1000, L501.9520, L501.5200, L506.1000, L500.4050, L501.9985, L502.000, L501.5280 #### [facility] [address] [place], [address] Calcium [Mass/Vol] 9.1 mg/dL Normal 7.6-11.0 [facility] Comment on above: Performed By: #### L 500.7000, L500.4100, L509.1000, L501.9520, L501.5200, L506.1000, L500.4050, L501.9985, L502.000, L501.5280 #### [facility] [address] [place], [address] Chloride [Moles/Vol] 105 mmol/L Normal 98-108 [facility] Comment on above: Performed By: #### L 500.7000, L500.4100, L509.1000, L501.9520, L501.5200, L506.1000, L500.4050, L501.9985, L502.000, L501.5280 #### [facility] [address] [place], [address] CO2 [Moles/Vol] 23.9 mmol/L Normal 21.0-32.0 [facility] Comment on above: Performed By: #### L 500.7000, L500.4100, L509.1000, L501.9520, L501.5200, L506.1000, L500.4050, L501.9985, L502.000, L501.5280 #### [facility] [address] [place], [address] Creatinine [Mass/Vol] 0.79 mg/dL Normal 0.70-1.20 [facility] Comment on above: Performed By: #### L 500.7000, L500.4100, L509.1000, L501.9520, L501.5200, L506.1000, L500.4050, L501.9985, L502.000, L501.5280 #### [facility] [address] [place], [place], [phone] ([phone] GAP 12 Normal 5-15 [facility] Comment on above: Performed By: #### L 500.7000, L500.4100, L509.1000, L501.9520, L501.5200, L506.1000, L500.4050, L501.9985, L502.000, L501.5280 #### [facility] [address] [place], [address] (478) GFR/1.73 sq M.predicted among non-blacks MDRD (S/P/Bld) [Vol rate/Area] 85 mL/min/{1.73_m2} Normal >60 [facility] Comment on above: Result Comment: mL/m in/1.73m2 CKD-EPI Creatinine Equation (2020) Performed By: #### L 500.7000, L500.4100, L509.1000, L501.9520, L501.5200, L506.1000, L500.4050, L501.9985, L502.000, L501.5280 #### [facility] [address] [place], [place], [phone] Globulin (S) [Mass/Vol] 2.5 g/dL Normal 2.2-4.2 [facility] Comment on above: Performed By: #### L 500.7000, L500.4100, L509.1000, L501.9520, L501.5200, L506.1000, L500.4050, L501.9985, L502.000, L501.5280 #### [facility] [address] [place], [place], [phone] Glucose [Mass/Vol] 151 mg/dL High 70-99 [facility] Comment on above: Performed By: #### L 500.7000, L500.4100, L509.1000, L501.9520, L501.5200, L506.1000, L500.4050, L501.9985, L502.000, L501.5280 #### [facility] [address] [place], [address] Potassium [Moles/Vol] 4.3 mmol/L Normal 3.3-5.1 [facility] Comment on above: Performed By: #### L 500.7000, L500.4100, L509.1000, L501.9520, L501.5200, L506.1000, L500.4050, L501.9985, L502.000, L501.5280 #### [facility] [address] [place], [address] Sodium [Moles/Vol] 141 mmol/L Normal 133-145 [facility] Comment on above: Performed By: #### L 500.7000, L500.4100, L509.1000, L501.9520, L501.5200, L506.1000, L500.4050, L501.9985, L502.000, L501.5280 #### [facility] [address] [place], [address] T PROT 6.6 g/dL Normal 5.9-8.4 [facility] Comment on above: Performed By: #### L 500.7000, L500.4100, L509.1000, L501.9520, L501.5200, L506.1000, L500.4050, L501.9985, L502.000, L501.5280 #### [facility] [address] [place], [address] Urea nitrogen [Mass/Vol] 13 mg/dL Normal 4-19 [facility] Comment on above: Performed By: #### L 500.7000, L500.4100, L509.1000, L501.9520, L501.5200, L506.1000, L500.4050, L501.9985, L502.000, L501.5280 #### [facility] [address] [place], [place], [id number] Glomerular filtration rate ( GFR) estimation/1.73 sq m using serum, plasma, or whole bOrdered By: Maria Teresa Pimentel on 05-05-2025 GFR/1.73 sq M.predicted among non-blacks MDRD (S/P/Bld) [Vol rate/Area] 85 mL/min/{1.73_m2} >60 [facility] Comment on above: mL/min/1.73m2 CKD-EP I Creatinine Equation (2020) Hemoglobin A1con 05-05-2025 HbA1c (Bld) [Mass fraction] 7.8 % High <=5.6 [facility] Comment on above: Result Comment: Norm al < 5.7 % Prediabetic 5.7 - 6.4 % Diabetic >or= 6.5 % Please note range changes. Performed By: #### L 500.7000, L500.4100, L509.1000, L501.9520, L501.5200, L506.1000, L500.4050, L501.9985, L502.000, L501.5280 #### [facility] [address] [place], [place], [phone] Hemoglobin A1c percentageOrd ered By: Maria Teresa Pimentel on 05-05-2025 HbA1c (Bld) [Mass fraction] 7.8 % High <5.7 [facility] Comment on above: Normal < 5.7 % Predi abetic 5.7 - 6.4 % Diabetic >or= 6.5 % Please note range changes. LDL calc ser/plasOrdered By: Maria Teresa Pimentel on 05-05-2025 Cholesterol in LDL [Mass/Vol] 26 mg/dL [facility] Comment on above: Hyjlzauccp=789-031 m g/dL & Higher Pllo=223 mg/dL or greater Laboratory - Chemistry and C hemistry - challengeOrdered By: Maria Teresa Pimentel on 05-05-2025 AST [Catalytic activity/Vol] 35 U/L High <32 [facility] Lipid Profileon 05-05-2025 CHOL:HDL 2.32 Normal [facility] Comment on above: Performed By: #### L 500.7000, L500.4100, L509.1000, L501.9520, L501.5200, L506.1000, L500.4050, L501.9985, L502.000, L501.5280 #### [facility] [address] [place], [place], [phone] (993) Cholesterol [Mass/Vol] 90 mg/dL Normal <=200 [facility] Comment on above: Result Comment: Chol esterol level, Desirable <200 mg/dL Borderline high cholesterol 200-239 mg/dL High cholesterol >=240 mg/dL Recommendations of the NCEP Adult Treatment Panel for the following risk-cutoff thresholds for the [place] population. Performed By: #### L 500.7000, L500.4100, L509.1000, L501.9520, L501.5200, L506.1000, L500.4050, L501.9985, L502.000, L501.5280 #### [facility] [address] [place], [address] (897) Cholesterol in HDL [Mass/Vol] 39 mg/dL Low [facility] Comment on above: Result Comment: Amanda onal Cholesterol Education Program (NCEP) guidelines: <40 mg/dL: Low HDL-cholesterol (major risk factor for CHD) >= 60 mg/dL: High HDL-cholesterol (negative risk factor for CHD) HDL-cholesterol is affected by a number of factors, e.g. smoking, exercise, hormones, sex and age. Performed By: #### L 500.7000, L500.4100, L509.1000, L501.9520, L501.5200, L506.1000, L500.4050, L501.9985, L502.000, L501.5280 #### [facility] [address] [place], [address] (002) Cholesterol in LDL [Mass/Vol] 26 mg/dL Normal [facility] Comment on above: Result Comment: Bord rbieip=805-050 mg/dL Higher Tvjh=769 mg/dL or greater Performed By: #### L 500.7000, L500.4100, L509.1000, L501.9520, L501.5200, L506.1000, L500.4050, L501.9985, L502.000, L501.5280 #### [facility] [address] [place], [place], [phone] Cholesterol in VLDL [Mass/Vol] 25 mg/dL Normal 5-40 [facility] Comment on above: Performed By: #### L 500.7000, L500.4100, L509.1000, L501.9520, L501.5200, L506.1000, L500.4050, L501.9985, L502.000, L501.5280 #### [facility] [address] [place], [address] Triglyceride [Mass/Vol] 127 mg/dL Normal [facility] Comment on above: Result Comment: The drugs N-Acetylcysteine and Metamizole may falsely depress this assay. Normal range: <150 mg/dL Borderline High: 150-199 mg/dL High: 200-499 mg/dL Very High: >500 mg/dL Performed By: #### L 500.7000, L500.4100, L509.1000, L501.9520, L501.5200, L506.1000, L500.4050, L501.9985, L502.000, L501.5280 #### [facility] [address] [place], [address] Potassium measurement (mass/ volume)Ordered By: Maria Teresa Pimentel on 05-05-2025 Potassium (Unsp spec) [Mass/Vol] 4.3 mmol/L 3.3-5.1 [facility] Screening total cholesterol/ high density lipoprotein (HDL) cholesterol ratioOrdered By: Maria Teresa Pimentel on 05-05-2025 Cholesterol.total/Ramonita sterol in HDL [Mass ratio] 2.32 {ratio} [facility] Serum creatinine measurement (mass/volume)Ordered By: Maria Teresa Pimentel on 05-05-2025 Creatinine [Mass/Vol] 0.79 mg/dL 0.70-1.20 [facility] Serum globulin measurementOr dered By: Maria Teresa Pimentel on 05-05-2025 Globulin (S) [Mass/Vol] 2.5 g/dL 2.2-4.2 [facility] Serum glucose measurement (m ass/volume)Ordered By: Maria Teresa Pimentel on 05-05-2025 Glucose [Mass/Vol] 151 mg/dL High 70-99 [facility] Serum or plasma alanine rosales otransferase (ALT) measurementOrdered By: Maria Teresa Pimentel on 05-05-2025 ALT [Catalytic activity/Vol] 54 U/L High <35 [facility] Serum or plasma albumin orlin urement (mass/volume)Ordered By: Maria Teresa Pimentel on 05-05-2025 Albumin [Mass/Vol] 4.1 g/dL 3.4-4.8 [facility] Serum or plasma albumin/glob ulin mass ratioOrdered By: Maria Teersa Pimentel on 05-05-2025 Albumin/Globulin [Mass ratio] 1.7 {ratio} 0.9-2.4 [facility] Serum or plasma alkaline stacey sphatase measurementOrdered By: Maria Teresa Pimentel on 05-05-2025 ALP [Catalytic activity/Vol] 102 U/L 35-104 [facility] Serum or plasma calcium orlin urement (mass/volume)Ordered By: Maria Teresa Pimentel on 05-05-2025 Calcium [Mass/Vol] 9.1 mg/dL 7.6-11.0 [facility] Serum or plasma cholesterol in HDL measurement (mass/volume)Ordered By: Maria Teresa Pimentel on 05-05-2025 Cholesterol in HDL [Mass/Vol] 39 mg/dL Low >40 [facility] Comment on above: National Cholesterol Education Program (NCEP) guidelines:<40 mg/dL: Low HDL-cholesterol (major risk factor for CHD)>= 60 mg/dL: High HDL-cholesterol (negative risk factor for CHD)HDL-cholesterol is affected by a number of factors, e.g. smoking, exercise, hormones, sex and age. Serum or plasma cholesterol measurement (mass/volume)Ordered By: Maria Teresa Pimentel on 05-05-2025 Cholesterol [Mass/Vol] 90 mg/dL <201 [facility] Comment on above: Cholesterol level, D esirable <200 mg/dLBorderline high cholesterol 200-239 mg/dLHigh cholesterol >=240 mg/dLRecommendations of the NCEP Adult Treatment Panel for the following risk-cutoff thresholds for the [place] population. Serum or plasma urea nitroge n measurement (mass/volume)Ordered By: Maria Teresa Pimentel on 05-05-2025 Urea nitrogen [Mass/Vol] 13 mg/dL 4-19 [facility] Sodium levelOrdered By: Dionicio Pimentel on 05-05-2025 Sodium [Moles/Vol] 141 mmol/L 133-145 [facility] TSH DL <= 0.005 mIU/L QnOrde red By: Maria Teresa Pimentel on 05-05-2025 TSH Qn 1.370 uIU/mL 0.300-4.200 [facility] Thyroid Stim Hormone (TSH)on 05-05-2025 TSH 1.370 uIU/mL Normal 0.300-4.200 [facility] Comment on above: Performed By: #### L 500.7000, L500.4100, L509.1000, L501.9520, L501.5200, L506.1000, L500.4050, L501.9985, L502.000, L501.5280 #### [facility] [place], [address] Total proteinOrdered By: Sarah Pimentel on 05-05-2025 Protein [Mass/Vol] 6.6 g/dL 5.9-8.4 [facility] Triglycerides measurementOrd ered By: Maria Teresa Pimentel on 05-05-2025 Triglyceride [Mass/Vol] 127 mg/dL <199 [facility] Comment on above: The drugs N-Acetylcy steine and Metamizole may falsely depress this assay. Normal range: <150 mg/dLBorderline High: 150-199 mg/dLHigh: 200-499 mg/dLVery High: >500 mg/dL CNOVon 03-07-2025 CNOV Office Visit (UCWSTR) LYNDSEY PANDEY ([id number]) 1965 F Date Time Provider Department 03/07/25 8:30 AM RAISSA GRIFFITHRUST During your visit today, we recorded the following information about you: Temperature Pulse Respiration Blood pressure 97.5 degrees 82/minute 16/minute 128/78 Weight 82.2 kg Raissa Griffith APRN.[employer] 03/07/2025 10:13 AM Signed [facility] Subjective HPI HPI Lyndsey Pandey [...] tablet Take by mouth. calcium carbonate/vitamin D2 ([id number]-303-X ORAL) Take 1 tablet by mouth once [...] - PREDNISONE 10 MG TABLET Raissa Griffith APRN.[employer]PERINTENDENT Disposition The patient was discharged. Procedures Allergies [...] Take by mouth. - calcium carbonate/vitamin D2 ([id number]-[id number] ORAL) Take 1 tablet by mouth once [...] As Of (more content not included)... Normal [facility] Albumin DL <= 20 mg/L (U) [M ass/Vol]Ordered By: River Dai on 02-09-2025 Urine Random Microalbumin < 12.0 mg/L NO RANGE EST. [facility] Anion gap in Serum or Plasma Ordered By: River Dai on 02-09-2025 Anion gap [Moles/Vol] 10 mmol/L 5-15 [facility] BUN/creatinine ratioOrdered By: River Dai on 02-09-2025 Urea nitrogen/Creatinine [Mass ratio] 18.9 mg/mg 10-20 [facility] Bilirubin, totalOrdered By: River Dai on 02-09-2025 Bilirubin [Mass/Vol] 0.34 mg/dL 0.00-1.30 [facility] Carbon dioxide, total [Moles /volume] in Central venous bloodOrdered By: River Dai on 02-09-2025 CO2 [Moles/Vol] 23.3 mmol/L 21.0-32.0 [facility] Chloride assayOrdered By: Bernardino Dai on 02-09-2025 Chloride [Moles/Vol] 105 mmol/L 98-108 [facility] Comprehensive Metabolic Prof ilon 02-09-2025 Albumin [Mass/Vol] 4.1 g/dL Normal 3.4-4.8 [facility] Comment on above: Performed By: #### L 500.7000, L500.4100, L509.1000, L501.9520, L501.5200, L506.1000, L500.4050, L501.9985, L502.000, L501.5280 #### [facility] [address] [place], [place], [phone] ([phone] Albumin/Globulin [Mass ratio] 1.7 {ratio} Normal 0.9-2.4 [facility] Comment on above: Performed By: #### L 500.7000, L500.4100, L509.1000, L501.9520, L501.5200, L506.1000, L500.4050, L501.9985, L502.000, L501.5280 #### [facility] [address] [place], [place], [phone] ([phone] ALK PHOS 103 U/L Normal 35-104 [facility] Comment on above: Performed By: #### L 500.7000, L500.4100, L509.1000, L501.9520, L501.5200, L506.1000, L500.4050, L501.9985, L502.000, L501.5280 #### [facility] [address] [place], [place], [phone] ALT [Catalytic activity/Vol] 36 U/L High <=34 [facility] Comment on above: Performed By: #### L 500.7000, L500.4100, L509.1000, L501.9520, L501.5200, L506.1000, L500.4050, L501.9985, L502.000, L501.5280 #### [facility] [address] [place], [address] AST [Catalytic activity/Vol] 28 U/L Normal <=31 [facility] Comment on above: Performed By: #### L 500.7000, L500.4100, L509.1000, L501.9520, L501.5200, L506.1000, L500.4050, L501.9985, L502.000, L501.5280 #### [facility] [address] [place], [address] Bilirubin [Mass/Vol] 0.34 mg/dL Normal 0.00-1.30 [facility] Comment on above: Performed By: #### L 500.7000, L500.4100, L509.1000, L501.9520, L501.5200, L506.1000, L500.4050, L501.9985, L502.000, L501.5280 #### [facility] [address] [place], [address] BUN/CRE 18.9 RATIO Normal 10-20 [facility] Comment on above: Performed By: #### L 500.7000, L500.4100, L509.1000, L501.9520, L501.5200, L506.1000, L500.4050, L501.9985, L502.000, L501.5280 #### [facility] [address] [place], [address] Calcium [Mass/Vol] 8.9 mg/dL Normal 7.6-11.0 [facility] Comment on above: Performed By: #### L 500.7000, L500.4100, L509.1000, L501.9520, L501.5200, L506.1000, L500.4050, L501.9985, L502.000, L501.5280 #### [facility] [address] [place], [address] Chloride [Moles/Vol] 105 mmol/L Normal 98-108 [facility] Comment on above: Performed By: #### L 500.7000, L500.4100, L509.1000, L501.9520, L501.5200, L506.1000, L500.4050, L501.9985, L502.000, L501.5280 #### [facility] [address] [place], [place], [phone] (246) CO2 [Moles/Vol] 23.3 mmol/L Normal 21.0-32.0 [facility] Comment on above: Performed By: #### L 500.7000, L500.4100, L509.1000, L501.9520, L501.5200, L506.1000, L500.4050, L501.9985, L502.000, L501.5280 #### [facility] [address] [place], [place], [phone] (279) Creatinine [Mass/Vol] 0.82 mg/dL Normal 0.70-1.20 [facility] Comment on above: Performed By: #### L 500.7000, L500.4100, L509.1000, L501.9520, L501.5200, L506.1000, L500.4050, L501.9985, L502.000, L501.5280 #### [facility] [address] [place], [place], [phone] (893) GAP 10 Normal 5-15 [facility] Comment on above: Performed By: #### L 500.7000, L500.4100, L509.1000, L501.9520, L501.5200, L506.1000, L500.4050, L501.9985, L502.000, L501.5280 #### [facility] [address] [facility] [place], [place], [id number] GFR/1.73 sq M.predicted among non-blacks MDRD (S/P/Bld) [Vol rate/Area] 82 mL/min/{1.73_m2} Normal >60 [facility] Comment on above: Result Comment: mL/m in/1.73m2 CKD-EPI Creatinine Equation (2020) Performed By: #### L 500.7000, L500.4100, L509.1000, L501.9520, L501.5200, L506.1000, L500.4050, L501.9985, L502.000, L501.5280 #### [facility] [address] [place], [address] Globulin (S) [Mass/Vol] 2.4 g/dL Normal 2.2-4.2 [facility] Comment on above: Performed By: #### L 500.7000, L500.4100, L509.1000, L501.9520, L501.5200, L506.1000, L500.4050, L501.9985, L502.000, L501.5280 #### [facility] [address] [place], [address] Glucose [Mass/Vol] 155 mg/dL High 70-99 [facility] Comment on above: Performed By: #### L 500.7000, L500.4100, L509.1000, L501.9520, L501.5200, L506.1000, L500.4050, L501.9985, L502.000, L501.5280 #### [facility] [address] [place], [address] Potassium [Moles/Vol] 4.1 mmol/L Normal 3.3-5.1 [facility] Comment on above: Performed By: #### L 500.7000, L500.4100, L509.1000, L501.9520, L501.5200, L506.1000, L500.4050, L501.9985, L502.000, L501.5280 #### [facility] [address] [place], [address] Sodium [Moles/Vol] 138 mmol/L Normal 133-145 [facility] Comment on above: Performed By: #### L 500.7000, L500.4100, L509.1000, L501.9520, L501.5200, L506.1000, L500.4050, L501.9985, L502.000, L501.5280 #### [facility] [address] [place], [address] T PROT 6.5 g/dL Normal 5.9-8.4 [facility] Comment on above: Performed By: #### L 500.7000, L500.4100, L509.1000, L501.9520, L501.5200, L506.1000, L500.4050, L501.9985, L502.000, L501.5280 #### [facility] [address] [place], [address] Urea nitrogen [Mass/Vol] 15 mg/dL Normal 4-19 [facility] Comment on above: Performed By: #### L 500.7000, L500.4100, L509.1000, L501.9520, L501.5200, L506.1000, L500.4050, L501.9985, L502.000, L501.5280 #### [facility] [address] [place], [address] Creatinine Unsp time (U) [Ma ss/Vol]Ordered By: River Dai on 02-09-2025 Creatinine (U) [Mass/Vol] 66.20 mg/dL 28.00-217.00 [facility] GFR/1.73 sq M.predicted keiko g non-blacks MDRD (S/P/Bld) [Vol rate/Area]Ordered By: River Dai on 02-09-2025 Estimated GFR (MDRD) Non-Af Amer 82 >60 [facility] Comment on above: mL/min/1.73m2 CKD-EP I Creatinine Equation (2020) Glomerular filtration rate ( GFR) estimation/1.73 sq m using serum, plasma, or whole bOrdered By: River Dai on 02-09-2025 GFR/1.73 sq M.predicted among non-blacks MDRD (S/P/Bld) [Vol rate/Area] 82 mL/min/{1.73_m2} >60 [facility] Comment on above: mL/min/1.73m2 CKD-EP I Creatinine Equation (2020) Hemoglobin A1c percentageon 02-09-2025 HbA1c (Bld) [Mass fraction] 7.7 % Abnormal 4.6 - 7.1 % [facility] Comment on above: Performed By: #### L 500.7000, L500.4100, L509.1000, L501.9520, L501.5200, L506.1000, L500.4050, L501.9985, L502.000, L501.5280 #### [facility] [address] [place], [address] Laboratory - Chemistry and C hemistry - challengeOrdered By: River Dai on 02-09-2025 AST [Catalytic activity/Vol] 28 U/L <32 [facility] Microalb:Creat Ratio,Random URon 02-09-2025 Creatinine [Mass/Vol] 66.20 mg/dL Normal 28.00-217.00 [facility] Comment on above: Performed By: #### L 500.7000, L500.4100, L509.1000, L501.9520, L501.5200, L506.1000, L500.4050, L501.9985, L502.000, L501.5280 #### [facility] [address] [place], [address] MALB:CREAT UNABLE TO CALCULATE Normal [facility] Comment on above: Performed By: #### L 500.7000, L500.4100, L509.1000, L501.9520, L501.5200, L506.1000, L500.4050, L501.9985, L502.000, L501.5280 #### [facility] [address] [place], [address] MICROALBUMIN,UR < 12.0 Normal NO RANGE EST. [facility] Comment on above: Performed By: #### L 500.7000, L500.4100, L509.1000, L501.9520, L501.5200, L506.1000, L500.4050, L501.9985, L502.000, L501.5280 #### [facility] [address] [place], [place], [id number] Microalbumin/creat ratio urO rdered By: River Dai on 02-09-2025 Urine Microalbumin/Creatinine Ratio UNABLE TO CALCULATE mg/g CRE [facility] Urine microalbumin/creatinine ratio measurement UNABLE TO CALCULATE mg/g CRE [facility] Potassium (Unsp spec) [Mass/ Vol]Ordered By: River Dai on 02-09-2025 Potassium [Moles/Vol] 4.1 mmol/L 3.3-5.1 [facility] Potassium measurement (mass/ volume)Ordered By: River Dai on 02-09-2025 Potassium (Unsp spec) [Mass/Vol] 4.1 mmol/L 3.3-5.1 [facility] Random urine creatinine orlin urement (mass/volume)Ordered By: River Dai on 02-09-2025 Creatinine Unsp time (U) [Mass/Vol] 66.20 mg/dL 28.00-217.00 [facility] Serum creatinine measurement (mass/volume)Ordered By: River Dai on 02-09-2025 Creatinine [Mass/Vol] 0.82 mg/dL 0.70-1.20 [facility] Serum globulin measurementOr dered By: River Dai on 02-09-2025 Globulin (S) [Mass/Vol] 2.4 g/dL 2.2-4.2 [facility] Serum glucose measurement (m ass/volume)Ordered By: River Dai on 02-09-2025 Glucose [Mass/Vol] 155 mg/dL High 70-99 [facility] Serum or plasma alanine rosales otransferase (ALT) measurementOrdered By: River Dai on 02-09-2025 ALT [Catalytic activity/Vol] 36 U/L High <35 [facility] Serum or plasma albumin orlin urement (mass/volume)Ordered By: River Dai on 02-09-2025 Albumin [Mass/Vol] 4.1 g/dL 3.4-4.8 [facility] Serum or plasma albumin/glob ulin mass ratioOrdered By: River Dai on 02-09-2025 Albumin/Globulin [Mass ratio] 1.7 {ratio} 0.9-2.4 [facility] Serum or plasma alkaline stacey sphatase measurementOrdered By: River Dai on 02-09-2025 ALP [Catalytic activity/Vol] 103 U/L 35-104 [facility] Serum or plasma calcium orlin urement (mass/volume)Ordered By: River Dai 02-09-2025 Calcium [Mass/Vol] 8.9 mg/dL 7.6-11.0 [facility] Serum or plasma urea nitroge n measurement (mass/volume)Ordered By: River Dai on 02-09-2025 Urea nitrogen [Mass/Vol] 15 mg/dL 4-19 [facility] Sodium levelOrdered By: Jose Dai on 02-09-2025 Sodium [Moles/Vol] 138 mmol/L 133-145 [facility] Total proteinOrdered By: Alexander Dai on 02-09-2025 Protein [Mass/Vol] 6.5 g/dL 5.9-8.4 [facility] Urine albumin measurement wi detection limit of 20 mg/L or less (mass/volume)Ordered By: River Dai on 02-09-2025 Albumin DL <= 20 mg/L (U) [Mass/Vol] < 12.0 mg/L NO RANGE EST. [facility] CNPNicole 12-26-2024 ENMAN Telephone (OBGYWM) LYNDSEY PANDEY ([id number]) 1965 F Date Time Provider Department 12/26/24 RUPALI SAGEWJuan Miguel During your visit today, we recorded the following information about you: Michelle Landry LPN 12/26/2024 3:42 PM Signed Patient called requesting an order for a screening mammmogram with gloria. Last yearly exam was 07/11/2024 Allergies As of Date: 12/26/2024 (No Known Allergies) Date Reviewed: 07/11/2024 Reviewed by: Rupali Sage APRN.FISH HATCHERY SUPERINTENDENT - Fully Assessed Primary Visit Diagnosis:Encounter for screening mammogram for malignant neoplasm of breast [Z12.31] Order(s):[facility] SCREENING W GLORIA [[id number]] Order #: [id number] FUTURE Prescriptions as of 12/26/2024 - dapagliflozin propanediol (FARXIGA) 10 mg tablet Take by mouth. - calcium carbonate/vitamin D2 ([id number] ORAL) Take 1 tablet by mouth once [...] Encounter Status:Closed by RUPALI SAGE on 12/26/24 Normal [facility] [place] DOrdered By: Deirdre Dai on 10-31-2024 Vitamin D 25-Hydroxy 34.5 ng/mL [facility] Comment on above: Vitamin D 25([place]) Sta tus Range Deficiency <20 ng/mL (50nmol/L) Insufficiency 20 - 30 ng/mL (50 - 75 nmol/L) Sufficiency 30 - 100 ng/mL (75 - 250 nmol/L) Toxicity >100 ng/mL (>250 nmol/L) Albumin to globulin ratioOrd ered By: River Dai on 10-31-2024 Albumin/Globulin [Mass ratio] 1.2 {ratio} 0.9-2.4 [facility] Bilirubin, totalOrdered By: River Dai on 10-31-2024 Bilirubin [Mass/Vol] 0.60 mg/dL 0.20-1.00 [facility] Comment on above: For patients on eltr ombopag therapy, use of Dimension [place] TBIL is not recommended. Blood urea nitrogen (BUN)/cr eatinine ratioOrdered By: River Dai on 10-31-2024 Urea nitrogen/Creatinine [Mass ratio] 15.6 mg/mg 10-20 [facility] Carbon dioxide measurementOr dered By: River Dai on 10-31-2024 CO2 [Moles/Vol] 31.0 mmol/L 21.0-32.0 [facility] Chloride measurementOrdered By: River Dai on 10-31-2024 Chloride [Moles/Vol] 107 mmol/L 98-107 [facility] Comprehensive Metabolic Prof ilon 10-31-2024 Albumin [Mass/Vol] 3.7 g/dL Normal 3.2-5.0 [facility] Comment on above: Performed By: #### L 500.7000, L500.4100, L509.1000, L501.9520, L501.5200, L506.1000, L500.4050, L501.9985, L502.000, L501.5280 #### [facility] [address] [place], [place], [id number] Albumin/Globulin [Mass ratio] 1.2 {ratio} Normal 0.9-2.4 [facility] Comment on above: Performed By: #### L 500.7000, L500.4100, L509.1000, L501.9520, L501.5200, L506.1000, L500.4050, L501.9985, L502.000, L501.5280 #### [facility] [address] [place], [place], [phone] ([phone] ALK P 104 U/L Normal 45-117 [facility] Comment on above: Performed By: #### L 500.7000, L500.4100, L509.1000, L501.9520, L501.5200, L506.1000, L500.4050, L501.9985, L502.000, L501.5280 #### [facility] [address] [place], [place], [id number] ALT [Catalytic activity/Vol] 34 U/L Normal 13-56 [facility] Comment on above: Performed By: #### L 500.7000, L500.4100, L509.1000, L501.9520, L501.5200, L506.1000, L500.4050, L501.9985, L502.000, L501.5280 #### [facility] [address] [place], [place], [id number] AST [Catalytic activity/Vol] 24 U/L Normal 15-37 [facility] Comment on above: Performed By: #### L 500.7000, L500.4100, L509.1000, L501.9520, L501.5200, L506.1000, L500.4050, L501.9985, L502.000, L501.5280 #### [facility] [address] [place], [place], [id number] Bilirubin [Mass/Vol] 0.60 mg/dL Normal 0.20-1.00 [facility] Comment on above: Result Comment: For patients on eltrombopag therapy, use of Dimension [place] TBIL is not recommended. Performed By: #### L 500.7000, L500.4100, L509.1000, L501.9520, L501.5200, L506.1000, L500.4050, L501.9985, L502.000, L501.5280 #### [facility] [address] [place], [address] BUN/CRE 15.6 RATIO Normal 10-20 [facility] Comment on above: Performed By: #### L 500.7000, L500.4100, L509.1000, L501.9520, L501.5200, L506.1000, L500.4050, L501.9985, L502.000, L501.5280 #### [facility] [address] [place], [place], [phone] ([phone] CA,Total 8.7 mg/dL Normal 8.5-10.1 [facility] Comment on above: Performed By: #### L 500.7000, L500.4100, L509.1000, L501.9520, L501.5200, L506.1000, L500.4050, L501.9985, L502.000, L501.5280 #### [facility] [address] [place], [place], [phone] ([phone] Chloride [Moles/Vol] 107 mmol/L Normal 98-107 [facility] Comment on above: Performed By: #### L 500.7000, L500.4100, L509.1000, L501.9520, L501.5200, L506.1000, L500.4050, L501.9985, L502.000, L501.5280 #### [facility] [address] [place], [address] CO2 [Moles/Vol] 31.0 mmol/L Normal 21.0-32.0 [facility] Comment on above: Performed By: #### L 500.7000, L500.4100, L509.1000, L501.9520, L501.5200, L506.1000, L500.4050, L501.9985, L502.000, L501.5280 #### [facility] [address] [place], [place], [phone] (808) Creatinine [Mass/Vol] 0.83 mg/dL Normal 0.55-1.02 [facility] Comment on above: Result Comment: The validity of the calculated GFR GFRAA in patients over 70 years has not been determined. Clinical correlation is essential. Performed By: #### L 500.7000, L500.4100, L509.1000, L501.9520, L501.5200, L506.1000, L500.4050, L501.9985, L502.000, L501.5280 #### [facility] [address] [place], [address] (180) EST GFR - AA 90 mL/min Normal >60 [facility] Comment on above: Result Comment: Afri can English GFR Calc Performed By: #### L 500.7000, L500.4100, L509.1000, L501.9520, L501.5200, L506.1000, L500.4050, L501.9985, L502.000, L501.5280 #### [facility] [address] [place], [place], [phone] (449) GAP 1 Low 5-15 [facility] Comment on above: Performed By: #### L 500.7000, L500.4100, L509.1000, L501.9520, L501.5200, L506.1000, L500.4050, L501.9985, L502.000, L501.5280 #### [facility] [address] [place], [address] (628) GFR/1.73 sq M.predicted among non-blacks MDRD (S/P/Bld) [Vol rate/Area] 74 mL/min/{1.73_m2} Normal >60 [facility] Comment on above: Result Comment: Non- GFR Calc Performed By: #### L 500.7000, L500.4100, L509.1000, L501.9520, L501.5200, L506.1000, L500.4050, L501.9985, L502.000, L501.5280 #### [facility] [address] [place], [address] Globulin (S) [Mass/Vol] 3.2 g/dL Normal 2.2-4.2 [facility] Comment on above: Performed By: #### L 500.7000, L500.4100, L509.1000, L501.9520, L501.5200, L506.1000, L500.4050, L501.9985, L502.000, L501.5280 #### [facility] [address] [place], [address] Glucose [Mass/Vol] 181 mg/dL High 74-106 [facility] Comment on above: Result Comment: Fast ing Glucose result greater than or equal to 126 mg/dL suggests DIABETES MELLITUS per A.D.A. criteria. Performed By: #### L 500.7000, L500.4100, L509.1000, L501.9520, L501.5200, L506.1000, L500.4050, L501.9985, L502.000, L501.5280 #### [facility] [address] [place], [address] Potassium [Moles/Vol] 4.0 mmol/L Normal 3.5-5.1 [facility] Comment on above: Performed By: #### L 500.7000, L500.4100, L509.1000, L501.9520, L501.5200, L506.1000, L500.4050, L501.9985, L502.000, L501.5280 #### [facility] [address] [place], [address] Sodium [Moles/Vol] 139 mmol/L Normal 136-145 [facility] Comment on above: Performed By: #### L 500.7000, L500.4100, L509.1000, L501.9520, L501.5200, L506.1000, L500.4050, L501.9985, L502.000, L501.5280 #### [facility] [address] [place], [place], [id number] T PROT 6.9 g/dL Normal 6.4-8.2 [facility] Comment on above: Performed By: #### L 500.7000, L500.4100, L509.1000, L501.9520, L501.5200, L506.1000, L500.4050, L501.9985, L502.000, L501.5280 #### [facility] [address] [facility] [address] [place], [place], [id number] Urea nitrogen [Mass/Vol] 13 mg/dL Normal 7-18 [facility] Comment on above: Performed By: #### L 500.7000, L500.4100, L509.1000, L501.9520, L501.5200, L506.1000, L500.4050, L501.9985, L502.000, L501.5280 #### [facility] [address] [facility] [place], [place], [id number] Estimated glomerular filtrat ion rate (GFR) AmericanOrdered By: River Dai on 10-31-2024 Estimated GFR (MDRD) Amer 90 mL/min >60 [facility] Comment on above: GFR Calc Glomerular filtration rate ( GFR) estimationOrdered By: River Dai on 10-31-2024 Estimated GFR (MDRD) Non-Af Amer 74 mL/min >60 [facility] Comment on above: Non- GFR Calc Glucose measurementOrdered B y: River Dai on 10-31-2024 Glucose [Mass/Vol] 181 mg/dL High 74-106 [facility] Comment on above: Fasting Glucose resu lt greater than or equal to 126 mg/dL suggests DIABETES MELLITUS per A.D.A. criteria. Hemoglobin A1con 10-31-2024 HbA1c (Bld) [Mass fraction] 7.2 % High 3.8-5.6 [facility] Comment on above: Result Comment: Norm al < 5.7 % Prediabetic 5.7 - 6.4 % Diabetic >or= 6.5 % Please note range changes. Performed By: #### L 500.7000, L500.4100, L509.1000, L501.9520, L501.5200, L506.1000, L500.4050, L501.9985, L502.000, L501.5280 #### [facility] [address] [place], [place], [address] Hemoglobin A1c percentageOrd ered By: River Dai on 10-31-2024 HbA1c (Bld) [Mass fraction] 7.2 % High 3.8-5.6 [facility] Comment on above: Normal < 5.7 % Predi abetic 5.7 - 6.4 % Diabetic >or= 6.5 % Please note range changes. Intact parathyroid hormone ( iPTH) measurementOrdered By: River Dai on 10-31-2024 Parathyroid Hormone (Intact) 65.9 pg/mL 18.4-80.1 [facility] - Chemistry and C hemistry - challengeOrdered By: River Dai on 10-31-2024 AST [Catalytic activity/Vol] 24 U/L 15-37 [facility] PTHINon 10-31-2024 PTH 65.9 pg/mL Normal 18.4-80.1 [facility] Comment on above: Performed By: #### L 500.7000, L500.4100, L509.1000, L501.9520, L501.5200, L506.1000, L500.4050, L501.9985, L502.000, L501.5280 #### [facility] [address] [place], [address] Potassium measurementOrdered By: River Dai on 10-31-2024 Potassium [Moles/Vol] 4.0 mmol/L 3.5-5.1 [facility] Serum anion gap measurementO rdered By: River Dai on 10-31-2024 Anion gap [Moles/Vol] 1 mmol/L Low 5-15 [facility] Serum globulin measurementOr dered By: River Dai on 10-31-2024 Globulin (S) [Mass/Vol] 3.2 g/dL 2.2-4.2 [facility] Serum or plasma alanine rosales otransferase (ALT) measurementOrdered By: River Dai on 10-31-2024 ALT [Catalytic activity/Vol] 34 U/L 13-56 [facility] Serum or plasma albumin orlin urement (mass/volume)Ordered By: River Dai on 10-31-2024 Albumin [Mass/Vol] 3.7 g/dL 3.2-5.0 [facility] Serum or plasma alkaline stacey sphatase measurementOrdered By: River Dai on 10-31-2024 ALP [Catalytic activity/Vol] 104 U/L 45-117 [facility] Serum or plasma calcium orlin urement (mass/volume)Ordered By: River Dai on 10-31-2024 Calcium [Mass/Vol] 8.7 mg/dL 8.5-10.1 [facility] Serum or plasma creatinine m easurement (mass/volume)Ordered By: River Dai on 10-31-2024 Creatinine [Mass/Vol] 0.83 mg/dL 0.55-1.02 [facility] Comment on above: The validity of the calculated GFR & GFRAA in patients over 70 years has not been determined. Clinical correlation is essential. Serum or plasma urea nitroge n measurement (mass/volume)Ordered By: River Dai on 10-31-2024 Urea nitrogen [Mass/Vol] 13 mg/dL 7-18 [facility] Sodium levelOrdered By: Jose Dai on 10-31-2024 Sodium [Moles/Vol] 139 mmol/L 136-145 [facility] Total proteinOrdered By: Alexander Dai on 10-31-2024 Protein [Mass/Vol] 6.9 g/dL 6.4-8.2 [facility] Vitamin D,25 Hydroxyon 10-31 Vitamin D 25-OH 34.5 ng/mL Normal [facility] Comment on above: Result Comment: Keshia min D 25(OH) Status Range Deficiency <20 ng/mL (50nmol/L) Insufficiency 20 - 30 ng/mL (50 - 75 nmol/L) Sufficiency 30 - 100 ng/mL (75 - 250 nmol/L) Toxicity >100 ng/mL (>250 nmol/L) Performed By: #### L 500.7000, L500.4100, L509.1000, L501.9520, L501.5200, L506.1000, L500.4050, L501.9985, L502.000, L501.5280 #### [facility] 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 Normal [facility] XR Shoulder - left 2 Viewson 09-11-2024 [...] pathology. 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 [facility] Radiology Study observation (narrative) [facility] XR Shoulder - left 2 ViewsOr dered By: Alba Dutta on 09-11-2024 [facility] Work Phone: Basic Metabolic Profile (BMP )on 08-04-2024 BUN/CRE 17.3 RATIO Normal 10-20 [facility] Comment on above: Performed By: #### L 500.7000, L500.4100, L509.1000, L501.9520, L501.5200, L506.1000, L500.4050, L501.9985, L502.000, L501.5280 #### [facility] [address] [place], [place], [phone] (441) CA,Total 9.2 mg/dL Normal 8.5-10.1 [facility] Comment on above: Performed By: #### L 500.7000, L500.4100, L509.1000, L501.9520, L501.5200, L506.1000, L500.4050, L501.9985, L502.000, L501.5280 #### [facility] [address] [place], [place], [phone] (214) Chloride [Moles/Vol] 105 mmol/L Normal 98-107 [facility] Comment on above: Performed By: #### L 500.7000, L500.4100, L509.1000, L501.9520, L501.5200, L506.1000, L500.4050, L501.9985, L502.000, L501.5280 #### [facility] [address] [place], [place], [phone] (272) CO2 [Moles/Vol] 29.0 mmol/L Normal 21.0-32.0 [facility] Comment on above: Performed By: #### L 500.7000, L500.4100, L509.1000, L501.9520, L501.5200, L506.1000, L500.4050, L501.9985, L502.000, L501.5280 #### [facility] [address] [place], [address] Creatinine [Mass/Vol] 0.75 mg/dL Normal 0.55-1.02 [facility] Comment on above: Result Comment: The validity of the calculated GFR GFRAA in patients over 70 years has not been determined. Clinical correlation is essential. Performed By: #### L 500.7000, L500.4100, L509.1000, L501.9520, L501.5200, L506.1000, L500.4050, L501.9985, L502.000, L501.5280 #### [facility] [address] [place], [place], [phone] EST GFR - AA 102 mL/min Normal >60 [facility] Comment on above: Result Comment: Afri can English GFR Calc Performed By: #### L 500.7000, L500.4100, L509.1000, L501.9520, L501.5200, L506.1000, L500.4050, L501.9985, L502.000, L501.5280 #### [facility] [address] [place], [place], [id number] GAP 4 Low 5-15 [facility] Comment on above: Performed By: #### L 500.7000, L500.4100, L509.1000, L501.9520, L501.5200, L506.1000, L500.4050, L501.9985, L502.000, L501.5280 #### [facility] [address] [place], [address] GFR/1.73 sq M.predicted among non-blacks MDRD (S/P/Bld) [Vol rate/Area] 84 mL/min/{1.73_m2} Normal >60 [facility] Comment on above: Result Comment: Non- GFR Calc Performed By: #### L 500.7000, L500.4100, L509.1000, L501.9520, L501.5200, L506.1000, L500.4050, L501.9985, L502.000, L501.5280 #### [facility] [address] [place], [address] Glucose [Mass/Vol] 142 mg/dL High 74-106 [facility] Comment on above: Result Comment: Fast ing Glucose result greater than or equal to 126 mg/dL suggests DIABETES MELLITUS per A.D.A. criteria. Performed By: #### L 500.7000, L500.4100, L509.1000, L501.9520, L501.5200, L506.1000, L500.4050, L501.9985, L502.000, L501.5280 #### [facility] [address] [place], [address] Potassium [Moles/Vol] 3.7 mmol/L Normal 3.5-5.1 [facility] Comment on above: Performed By: #### L 500.7000, L500.4100, L509.1000, L501.9520, L501.5200, L506.1000, L500.4050, L501.9985, L502.000, L501.5280 #### [facility] [address] [place], [address] Sodium [Moles/Vol] 138 mmol/L Normal 136-145 [facility] Comment on above: Performed By: #### L 500.7000, L500.4100, L509.1000, L501.9520, L501.5200, L506.1000, L500.4050, L501.9985, L502.000, L501.5280 #### [facility] [address] [place], [address] Urea nitrogen [Mass/Vol] 13 mg/dL Normal 7-18 [facility] Comment on above: Performed By: #### L 500.7000, L500.4100, L509.1000, L501.9520, L501.5200, L506.1000, L500.4050, L501.9985, L502.000, L501.5280 #### [facility] [address] [place], [address] PTHINon 08-04-2024 PTH 62.6 pg/mL Normal 18.4-80.1 [facility] Comment on above: Performed By: #### L 500.7000, L500.4100, L509.1000, L501.9520, L501.5200, L506.1000, L500.4050, L501.9985, L502.000, L501.5280 #### [facility] [address] [facility] [place], [place], [phone] 24 HR Urine Creatinineon UR COLLECT TIME 24.0 HOURS Normal 24.0 [facility] Comment on above: Performed By: #### L 500.7000, L500.4100, L509.1000, L501.9520, L501.5200, L506.1000, L500.4050, L501.9985, L502.000, L501.5280 #### [facility] [address] [facility] [place], [place], [id number] UR TOTAL VOLUME 2.10 Normal [facility] Comment on above: Performed By: #### L 500.7000, L500.4100, L509.1000, L501.9520, L501.5200, L506.1000, L500.4050, L501.9985, L502.000, L501.5280 #### [facility] [address] [facility] [place], [place], [phone] (349) UR.CREAT/24hr 1.31 g/24 HR Normal 0.70-1.90 [facility] Comment on above: Performed By: #### L 500.7000, L500.4100, L509.1000, L501.9520, L501.5200, L506.1000, L500.4050, L501.9985, L502.000, L501.5280 #### [facility] [address] [place], [place], [id number] URINE CREAT 62.30 mg/dL Normal NO RANGE EST. [facility] Comment on above: Performed By: #### L 500.7000, L500.4100, L509.1000, L501.9520, L501.5200, L506.1000, L500.4050, L501.9985, L502.000, L501.5280 #### [facility] [address] [place], [place], [phone] CNCOon 07-11-2024 [facility] HNO ID: [id number] Author: COORDINATOR, MAMMOGRAPHY, ? Service: ? Author Type: Physician Type: Letter Filed: 07/11/2024 09:46 Note Text: July 11, 2024 PID: [id number] Lyndsey Pandey [id number] [place] [address] Dear Ms. Pandey, We are pleased to [...] report will be kept on file at [facility] as part of your permanent medical record and are available for your continuing care. Thank you for allowing us to help in meeting your health care needs. Sincerely, Dr. Torres Interpreting Radiologist [facility] (Normal over 40) Normal [facility] CNOVon 07-11-2024 CNOV Office Visit (OBGYWM) LYNDSEY PANDEY ([id number]) 1965 F Date Time Provider Department 07/11/24 9:30 AM RUPALI SAGE During your visit today, we recorded the following information about you: Respiration Blood pressure Weight Height 16/minute 122/76 79.9 kg 1.654 m Rupali Sage, CULL GRADER.FISH HATCHERY SUPERINTENDENT 07/11/2024 9:56 AM Signed Chinese Medicine Practitioner offered:Patient timo Solorio is a 59 year [...] L2 SAB0 IAB0 Ectopic0 Multiple0 Live Births0 Spin Instructor History LMP: Postmenopausal Age at Menarche: 13 Age at First : Age at Menopause: 45 Spin Instructor History Comments: Sexual Activity: Not Currently; Male [...] external genitalia normal, normal Bartholin's glands, urethra, [place]'s glands, no vulvar lesions, no cervical lesions, [...] year or sooner as needed Rupali Sage APRN.FISH HATCHERY SUPERINTENDENT Allergies As of Date: 07/11/2024 (No Known Allergies) Date Reviewed: 07/11/2024 Reviewed by: Rupali Sage APRN.FISH HATCHERY SUPERINTENDENT - Fully Assessed Reason for Visit: Well Woman [1463] Primary Visit Diagnosis:Encounter for gynecological examination (general) (routine) without abnormal findings [Z01.419] Other Visit Diagnosis:Encounter for screening mammogram for (more content not included)... Normal [facility] Calcium, Urine 24HRon 2023 24HR UR Calcium 176.4 mg/24 HR Normal 42.0-353.0 [facility] Comment on above: Performed By: #### L 500.7000, L500.4100, L509.1000, L501.9520, L501.5200, L506.1000, L500.4050, L501.9985, L502.000, L501.5280 #### [facility] [address] [place], [address] Calcium UR pH 1 Normal [facility] Comment on above: Performed By: #### L 500.7000, L500.4100, L509.1000, L501.9520, L501.5200, L506.1000, L500.4050, L501.9985, L502.000, L501.5280 #### [facility] [address] [place], [place], [id number] UR Collect Time 24.0 HR Normal 24.0-24.0 [facility] Comment on above: Performed By: #### L 500.7000, L500.4100, L509.1000, L501.9520, L501.5200, L506.1000, L500.4050, L501.9985, L502.000, L501.5280 #### [facility] [address] [place], [address] UR Total Volume 2100 ml Normal [facility] Comment on above: Performed By: #### L 500.7000, L500.4100, L509.1000, L501.9520, L501.5200, L506.1000, L500.4050, L501.9985, L502.000, L501.5280 #### [facility] [address] [place], [place], [phone] ([phone] Urine Calcium 8.4 mg/dL Normal Not Estab. [facility] Comment on above: Performed By: #### L 500.7000, L500.4100, L509.1000, L501.9520, L501.5200, L506.1000, L500.4050, L501.9985, L502.000, L501.5280 #### [facility] [address] [place], [place], [phone] Comprehensive Metabolic Prof [facility] 07-11-2024 Albumin [Mass/Vol] 3.6 g/dL Normal 3.2-5.0 [facility] Comment on above: Order Comment: 24HR NA URINE LIPID Performed By: #### L 500.7000, L500.4100, L509.1000, L501.9520, L501.5200, L506.1000, L500.4050, L501.9985, L502.000, L501.5280 #### [facility] [address] [place], [place], [id number] Albumin/Globulin [Mass ratio] 1.1 {ratio} Normal 0.9-2.4 [facility] Comment on above: Order Comment: 24HR NA URINE LIPID Performed By: #### L 500.7000, L500.4100, L509.1000, L501.9520, L501.5200, L506.1000, L500.4050, L501.9985, L502.000, L501.5280 #### [facility] [address] [place], [place], [id number] ALK P 111 U/L Normal 45-117 [facility] Comment on above: Order Comment: 24HR NA URINE LIPID Performed By: #### L 500.7000, L500.4100, L509.1000, L501.9520, L501.5200, L506.1000, L500.4050, L501.9985, L502.000, L501.5280 #### [facility] [address] [place], [address] ALT [Catalytic activity/Vol] 40 U/L Normal 13-56 [facility] Comment on above: Order Comment: 24HR NA URINE LIPID Performed By: #### L 500.7000, L500.4100, L509.1000, L501.9520, L501.5200, L506.1000, L500.4050, L501.9985, L502.000, L501.5280 #### [facility] [address] [facility] [place], [place], [phone] AST [Catalytic activity/Vol] 26 U/L Normal 15-37 [facility] Comment on above: Order Comment: 24HR NA URINE LIPID Performed By: #### L 500.7000, L500.4100, L509.1000, L501.9520, L501.5200, L506.1000, L500.4050, L501.9985, L502.000, L501.5280 #### [facility] [address] [facility] [place], [place], [id number] Bilirubin [Mass/Vol] 0.60 mg/dL Normal 0.20-1.00 [facility] Comment on above: Order Comment: 24HR NA URINE LIPID Result Comment: For patients on eltrombopag therapy, use of Dimension [place] TBIL is not recommended. Performed By: #### L 500.7000, L500.4100, L509.1000, L501.9520, L501.5200, L506.1000, L500.4050, L501.9985, L502.000, L501.5280 #### [facility] [address] [place], [address] BUN/CRE 14.6 RATIO Normal 10-20 [facility] Comment on above: Order Comment: 24HR NA URINE LIPID Performed By: #### L 500.7000, L500.4100, L509.1000, L501.9520, L501.5200, L506.1000, L500.4050, L501.9985, L502.000, L501.5280 #### [facility] [address] [place], [address] CA,Total 8.9 mg/dL Normal 8.5-10.1 [facility] Comment on above: Order Comment: 24HR NA URINE LIPID Performed By: #### L 500.7000, L500.4100, L509.1000, L501.9520, L501.5200, L506.1000, L500.4050, L501.9985, L502.000, L501.5280 #### [facility] [address] [place], [address] Chloride [Moles/Vol] 108 mmol/L High 98-107 [facility] Comment on above: Order Comment: 24HR NA URINE LIPID Performed By: #### L 500.7000, L500.4100, L509.1000, L501.9520, L501.5200, L506.1000, L500.4050, L501.9985, L502.000, L501.5280 #### [facility] [address] [place] [place], [address] CO2 [Moles/Vol] 27.0 mmol/L Normal 21.0-32.0 [facility] Comment on above: Order Comment: 24HR NA URINE LIPID Performed By: #### L 500.7000, L500.4100, L509.1000, L501.9520, L501.5200, L506.1000, L500.4050, L501.9985, L502.000, L501.5280 #### [facility] [address] [place], [place], [phone] Creatinine [Mass/Vol] 0.82 mg/dL Normal 0.55-1.02 [facility] Comment on above: Order Comment: 24HR NA URINE LIPID Result Comment: The validity of the calculated GFR GFRAA in patients over 70 years has not been determined. Clinical correlation is essential. Performed By: #### L 500.7000, L500.4100, L509.1000, L501.9520, L501.5200, L506.1000, L500.4050, L501.9985, L502.000, L501.5280 #### [facility] [address] [place], [address] EST GFR - AA 92 mL/min Normal >60 [facility] Comment on above: Order Comment: 24HR NA URINE LIPID Result Comment: Afri can English GFR Calc Performed By: #### L 500.7000, L500.4100, L509.1000, L501.9520, L501.5200, L506.1000, L500.4050, L501.9985, L502.000, L501.5280 #### [facility] [address] [place], [place], [id number] GAP 6 Normal 5-15 [facility] Comment on above: Order Comment: 24HR NA URINE LIPID Performed By: #### L 500.7000, L500.4100, L509.1000, L501.9520, L501.5200, L506.1000, L500.4050, L501.9985, L502.000, L501.5280 #### [facility] [address] [place], [address] GFR/1.73 sq M.predicted among non-blacks MDRD (S/P/Bld) [Vol rate/Area] 76 mL/min/{1.73_m2} Normal >60 [facility] Comment on above: Order Comment: 24HR NA URINE LIPID Result Comment: Non- GFR Calc Performed By: #### L 500.7000, L500.4100, L509.1000, L501.9520, L501.5200, L506.1000, L500.4050, L501.9985, L502.000, L501.5280 #### [facility] [address] [place], [address] Globulin (S) [Mass/Vol] 3.4 g/dL Normal 2.2-4.2 [facility] Comment on above: Order Comment: 24HR NA URINE LIPID Performed By: #### L 500.7000, L500.4100, L509.1000, L501.9520, L501.5200, L506.1000, L500.4050, L501.9985, L502.000, L501.5280 #### [facility] [address] [place], [place], [phone] (707) Glucose [Mass/Vol] 146 mg/dL High 74-106 [facility] Comment on above: Order Comment: 24HR NA URINE LIPID Result Comment: Fast ing Glucose result greater than or equal to 126 mg/dL suggests DIABETES MELLITUS per A.D.A. criteria. Performed By: #### L 500.7000, L500.4100, L509.1000, L501.9520, L501.5200, L506.1000, L500.4050, L501.9985, L502.000, L501.5280 #### [facility] [address] [place], [address] Potassium [Moles/Vol] 3.6 mmol/L Normal 3.5-5.1 [facility] Comment on above: Order Comment: 24HR NA URINE LIPID Performed By: #### L 500.7000, L500.4100, L509.1000, L501.9520, L501.5200, L506.1000, L500.4050, L501.9985, L502.000, L501.5280 #### [facility] [address] [place], [address] Sodium [Moles/Vol] 141 mmol/L Normal 136-145 [facility] Comment on above: Order Comment: 24HR NA URINE LIPID Performed By: #### L 500.7000, L500.4100, L509.1000, L501.9520, L501.5200, L506.1000, L500.4050, L501.9985, L502.000, L501.5280 #### [facility] [address] [place], [address] T PROT 7.0 g/dL Normal 6.4-8.2 [facility] Comment on above: Order Comment: 24HR NA URINE LIPID Performed By: #### L 500.7000, L500.4100, L509.1000, L501.9520, L501.5200, L506.1000, L500.4050, L501.9985, L502.000, L501.5280 #### [facility] [address] [facility] [place], [address] Urea nitrogen [Mass/Vol] 12 mg/dL Normal 7-18 [facility] Comment on above: Order Comment: 24HR NA URINE LIPID Performed By: #### L 500.7000, L500.4100, L509.1000, L501.9520, L501.5200, L506.1000, L500.4050, L501.9985, L502.000, L501.5280 #### [facility] [address] [facility] [place], [place], [address] DBT Breast - bilateral scree abdifatahfestus 07-11-2024 IMPRESSION: NEGATIVE There is no mammographic evidence of malignancy. A 1 year screening mammogram is recommended. The exam was reviewed by a staff physician. Luis Ardon D.O. tr,maryjane/penrad:07/11/20 24 09:46:30 Stewardess Supervisor(s): RT Liam(R)(M), [facility] letter sent: Normal over 40 [...] Health, Family Medicine, and Medical/Surgical Oncology, the [facility] has carefully reviewed the data [...] their providers when to stop screening mammograms. Combination Building Inspector: Stanford Transcribe Date/Time: Jul 11 2024 8:53A Dictated by: KERMIT ARDON DO This examination was interpreted and the report reviewed and electronically signed by: LUIS TORRES MD on Jul 11 2024 9:46AM [facility] DIVISION OF RADIOLOGY * * *Final Report* * * DATE OF EXAM: Jul 11 2024 9:17AM [facility] 0582 - [facility] SCREENING W GLORIA / PROCEDURE REASON: Encounter for screening mammogram for malignant neoplasm of breast * * * * Physician Interpretation * * * * RESULT: #[id number] - [facility] SCREENING W GLORIA BILATERAL DIGITAL SCREENING MAMMOGRAM [...] mammogram, 10/03/2021 mammogram, and 08/15/2020 mammogram - [facility]. There are scattered areas of fibroglandular density. No significant masses, calcifications, or other findings are seen in either breast. There has been no significant interval change. DIVISION OF RADIOLOGY Provider, [facility] [place] - 07/11/2024 * * *Final Report* * * DATE OF EXAM: Jul 11 2024 9:17AM [facility] 0582 - [facility] SCREENING W GLORIA / PROCEDURE REASON: Encounter for screening mammogram for malignant neoplasm of breast * * * * Physician Interpretation * * * * RESULT: #[id number] - [facility] SCREENING W GLORIA BILATERAL DIGITAL [...] mammogram, 10/03/2021 mammogram, and 08/15/2020 mammogram - [facility]. There are scattered areas of fibroglandular density. No significant masses, calcifications, or other findings are seen in either breast. There has been no significant interval change. IMPRESSION IMPRESSION: NEGATIVE There is no mammographic evidence of malignancy. A 1 year screening mammogram is recommended. The exam was reviewed by a staff physician. maryjane Alva M.D., D.O./stanford:07/11/20 24 09:46:30 Stewardess Supervisor(s): RT Liam(R)(M), [facility] letter sent: Normal over 40 [...] Health, Family Medicine, and Medical/Surgical Oncology, the [facility] has carefully reviewed the data [...] their providers when to stop screening mammograms. Combination Building Inspector: Stanford Transcribe Date/Time: Jul 11 2024 8:53A Dictated by: KERMIT ARDON, This examination was interpreted and the report reviewed and electronically signed by: LUIS TORRES MD on Jul 11 2024 9:46AM EST [facility] Radiology Study observation (narrative) [facility] Breast - bilateral scree ningOrdered By: Ccf Provider on 07-11-2024 [facility] Electrolytes, 24 HR URon UR CL TNP Normal Not Establ. [facility] Comment on above: Performed By: #### L 500.7000, L500.4100, L509.1000, L501.9520, L501.5200, L506.1000, L500.4050, L501.9985, L502.000, L501.5280 #### [facility] [address] [place], [address] UR CL/24 hr TNP Normal 110-250 [facility] Comment on above: Performed By: #### L 500.7000, L500.4100, L509.1000, L501.9520, L501.5200, L506.1000, L500.4050, L501.9985, L502.000, L501.5280 #### [facility] [address] [facility] [place], [place], [id number] UR K TNP Normal Not Establ. [facility] Comment on above: Performed By: #### L 500.7000, L500.4100, L509.1000, L501.9520, L501.5200, L506.1000, L500.4050, L501.9985, L502.000, L501.5280 #### [facility] [address] [place], [address] UR K/24 HR TNP Normal 25-125 [facility] Comment on above: Performed By: #### L 500.7000, L500.4100, L509.1000, L501.9520, L501.5200, L506.1000, L500.4050, L501.9985, L502.000, L501.5280 #### [facility] [address] [place], [address] UR NA 45 mmol/L Normal Not Establ. [facility] Comment on above: Performed By: #### L 500.7000, L500.4100, L509.1000, L501.9520, L501.5200, L506.1000, L500.4050, L501.9985, L502.000, L501.5280 #### [facility] [address] [place], [address] UR NA/24HR 95 mmol/24h Normal 40-220 [facility] Comment on above: Performed By: #### L 500.7000, L500.4100, L509.1000, L501.9520, L501.5200, L506.1000, L500.4050, L501.9985, L502.000, L501.5280 #### [facility] [address] [place], [address] Hemoglobin A1con 07-11-2024 HbA1c (Bld) [Mass fraction] 7.0 % Normal 4.6 - 7.1 % [facility]. Comment on above: Result Comment: Norm al < 5.7 % Prediabetic 5.7 - 6.4 % Diabetic >or= 6.5 % Please note range changes. Performed By: #### L 500.7000, L500.4100, L509.1000, L501.9520, L501.5200, L506.1000, L500.4050, L501.9985, L502.000, L501.5280 #### [facility] [address] [place], [place], [id number] Lipid Profileon 07-11-2024 Cholesterol [Mass/Vol] 100 mg/dL Normal 200 [facility] Comment on above: Order Comment: 24HR NA URINE LIPID Result Comment: <200 mg/dL Desirable 200-240 mg/dL Borderline >240 mg/dL High Risk Performed By: #### L 500.7000, L500.4100, L509.1000, L501.9520, L501.5200, L506.1000, L500.4050, L501.9985, L502.000, L501.5280 #### [facility] [address] [place] [place], [address] Cholesterol in HDL [Mass/Vol] 45 mg/dL Normal [facility] Comment on above: Order Comment: 24HR NA URINE LIPID Result Comment: The drugs N-Acetylcysteine and Metamizole may falsely depress this assay. Reference Range HDL <40 mg/dL Low HDL Cholesterol HDL >or= 60 mg/dL High HDL Cholesterol Performed By: #### L 500.7000, L500.4100, L509.1000, L501.9520, L501.5200, L506.1000, L500.4050, L501.9985, L502.000, L501.5280 #### [facility] [address] [place], [place], [id number] [phone] Cholesterol in LDL [Mass/Vol] 24 mg/dL Normal 0-130 [facility] Comment on above: Order Comment: 24HR NA URINE LIPID Performed By: #### L 500.7000, L500.4100, L509.1000, L501.9520, L501.5200, L506.1000, L500.4050, L501.9985, L502.000, L501.5280 #### [facility] [address] [place], [place], [address] Cholesterol in VLDL [Mass/Vol] 31 mg/dL Normal 5-40 [facility] Comment on above: Order Comment: 24HR NA URINE LIPID Performed By: #### L 500.7000, L500.4100, L509.1000, L501.9520, L501.5200, L506.1000, L500.4050, L501.9985, L502.000, L501.5280 #### [facility] [address] [place], [place], [id number] Triglyceride [Mass/Vol] 157 mg/dL Normal W [facility] Comment on above: Order Comment: 24HR NA URINE LIPID Result Comment: The drugs N-Acetylcysteine and Metamizole may falsely depress this assay. Serum Triglycerides Reference Interval Normal <150 mg/dL Borderline high 150 - 199 mg/dL High 200 - 499 mg/dL Very High > or = 500 mg/dL Performed By: #### L 500.7000, L500.4100, L509.1000, L501.9520, L501.5200, L506.1000, L500.4050, L501.9985, L502.000, L501.5280 #### [facility] [address] [facility] [place], [place], [id number] [facility] SCREENING W TOMOon 07-11 [facility] SCREENING W GLORIA * * *Final Report* * * DATE OF EXAM: Jul 11 2024 9:17AM [facility] 0582 - [facility] SCREENING W GLORIA / PROCEDURE REASON: Encounter for screening mammogram for malignant neoplasm of breast * * * * Physician Interpretation * * * * RESULT: #[id number] - [facility] SCREENING W GLORIA BILATERAL DIGITAL SCREENING MAMMOGRAM [...] mammogram, 10/03/2021 mammogram, and 08/15/2020 mammogram - [facility]. There are scattered areas of fibroglandular density. No significant masses, calcifications, or other findings are seen in either breast. There has been no significant interval change. IMPRESSION: NEGATIVE There is no mammographic evidence of malignancy. A 1 year screening mammogram is recommended. The exam was reviewed by a staff physician. Luis Ardon D.O. tr,maryjane/stanford:07/11/20 09:46:30 Stewardess Supervisor(s): RT Liam(R)(M), [facility] letter sent: Normal over 40 [...] Health, Family Medicine, and Medical/Surgical Oncology, the [facility] has carefully reviewed the data [...] their providers when to stop screening mammograms. Combination Building Inspector: Stanford Transcribe Date/Time: Jul 11 2024 8:53A Dictated by: KERMIT ARDON, DO This examination was interpreted and the report reviewed and electronically signed by: LUIS TORRES MD on Jul 11 2024 9:46AM EST [id number] CN Normal [facility] Magnesiumon 07-11-2024 Magnesium [Mass/Vol] 2.3 mg/dL Normal 1.6-2.6 [facility] Comment on above: Order Comment: 24HR NA URINE LIPID Performed By: #### L 500.7000, L500.4100, L509.1000, L501.9520, L501.5200, L506.1000, L500.4050, L501.9985, L502.000, L501.5280 #### [facility] [address] [place], [address] PTHINon 07-11-2024 PTH 87.6 pg/mL High 18.4-80.1 [facility] Comment on above: Performed By: #### L 500.7000, L500.4100, L509.1000, L501.9520, L501.5200, L506.1000, L500.4050, L501.9985, L502.000, L501.5280 #### [facility] [address] [place] [place], [address] Thyroid Stim Hormone (TSH)on 07-11-2024 TSH 1.110 uIU/mL Normal 0.358-3.740 [facility] Comment on above: Order Comment: 24HR NA URINE LIPID Performed By: #### L 500.7000, L500.4100, L509.1000, L501.9520, L501.5200, L506.1000, L500.4050, L501.9985, L502.000, L501.5280 #### [facility] [address] [place], [address] Vitamin D,25 Hydroxyon 07-11 Vitamin D 25-OH 36.4 ng/mL Normal [facility] Comment on above: Result Comment: Keshia min D 25(OH) Status Range Deficiency <20 ng/mL (50nmol/L) Insufficiency 20 - 30 ng/mL (50 - 75 nmol/L) Sufficiency 30 - 100 ng/mL (75 - 250 nmol/L) Toxicity >100 ng/mL (>250 nmol/L) Performed By: #### L 500.7000, L500.4100, L509.1000, L501.9520, L501.5200, L506.1000, L500.4050, L501.9985, L502.000, L501.5280 #### [facility] [address] [place], [address] Basophil percentageOrdered B y: Jhon Capone on 01-10-2024 Bilirubin [Mass/Vol] 0.70 mg/dL 0.20-1.00 [facility] Comment on above: For patients on eltr ombopag therapy, use of Dimension [place] TBIL is not recommended. Chloride [Moles/Vol] 110 mmol/L 98-107 [facility] Glucose [Mass/Vol] 134 mg/dL 74-106 [facility] Comment on above: Fasting Glucose resu lt greater than or equal to 126 mg/dL suggests DIABETES MELLITUS per A.D.A. criteria. Potassium [Moles/Vol] 4.3 mmol/L 3.5-5.1 [facility] Protein [Mass/Vol] 7.3 g/dL 6.4-8.2 [facility] Sodium [Moles/Vol] 141 mmol/L 136-145 [facility] Laboratory - Chemistry and C hemistry - challengeOrdered By: Jhon Capone on 01-10-2024 Albumin/Globulin [Mass ratio] 1.1 {ratio} 0.9-2.4 [facility] ALP [Catalytic activity/Vol] 112 U/L 45-117 [facility] ALT [Catalytic activity/Vol] 46 U/L 13-56 [facility] CO2 [Moles/Vol] 26.0 mmol/L 21.0-32.0 [facility] Globulin (S) [Mass/Vol] 3.4 g/dL 2.2-4.2 [facility] Urea nitrogen/Creatinine [Mass ratio] 17.8 mg/mg 10-20 [facility] No Panel Informationon 01-09 134 mg/dL Abnormal 74 - 106 mg/dL [facility] Work Phone: 14 mg/dL Normal 7 - 18 mg/dL [facility].; [facility], [facility]. Work Phone: 0.79 mg/dL Normal 0.55 - 1.02 mg/dL [facility], [facility].; [facility] [employer] Work Phone: 80 mL/min Normal [facility], [facility].; [facility] Work Phone: 96 mL/min Normal [facility], [facility].; [facility] Work Phone: 17.8 {RATIO} Normal 10 - 20 {RATIO} [facility], [facility].; [facility] Work Phone: 7.3 g/dL Normal 6.4 - 8.2 g/dL [facility], [facility].; [facility] Work Phone: 3.9 g/dL Normal 3.2 - 5.0 g/dL [facility], [facility].; [facility] Work Phone: 3.4 g/dL Normal 2.2 - 4.2 g/dL [facility], [facility].; [facility] Work Phone: 1.1 {RATIO} Normal 0.9 - 2.4 {RATIO} [facility], [facility].; [facility] Work Phone: 9.2 mg/dL Normal 8.5 - 10.1 mg/dL [facility], [facility].; [facility] Work Phone: 28 U/L Normal 15 - 37 U/L [facility], [facility].; [facility] Work Phone: 112 U/L Normal 45 - 117 U/L [facility], [facility].; [place] [facility] Work Phone: 46 U/L Normal 13 - 56 U/L [facility], [facility].; [facility] Work Phone: 0.70 mg/dL Normal 0.20 - 1.00 mg/dL [facility]IDE[facility] SPH[facility].; [place] [employer] Work Phone: 141 mmol/L Normal 136 - 145 mmol/L [facility].; [place] [employer]. Work Phone: 4.3 mmol/L Normal 3.5 - 5.1 mmol/L [facility].; [employer]. Work Phone: 110 mmol/L Abnormal 98 - 107 mmol/L [facility].; [place] [employer]. Work Phone: 26.0 mmol/L Normal 21.0 - 32.0 mmol/L [facility].; [place] [employer]. Work Phone: 5 Normal 5 - 15 [facility].; [employer]. Work Phone: 6.7 Abnormal 3.8 - 5.6 [place] [facility] [employer]. Work Phone: No Panel InformationOrdered By: Jhon Capone on 01-10-2024 Estimated GFR (MDRD) Amer 96 mL/min >60 [facility] Comment on above: GFR Calc Estimated GFR (MDRD) Non-Af Amer 80 mL/min >60 [facility] Comment on above: Non- GFR Calc Serum or plasma calcium orlin urement (mass/volume)Ordered By: Jhon Capone on 01-10-2024 Calcium [Mass/Vol] 9.2 mg/dL 8.5-10.1 [facility] Serum or plasma creatinine m easurement (mass/volume)Ordered By: Jhon Capone on 01-10-2024 Creatinine [Mass/Vol] 0.79 mg/dL 0.55-1.02 [facility] Comment on above: The validity of the calculated GFR & GFRAA in patients over 70 years has not been determined. Clinical correlation is essential. Serum or plasma urea nitroge n measurement (mass/volume)Ordered By: Jhon Capone on 01-10-2024 Urea nitrogen [Mass/Vol] 14 mg/dL 7-18 [facility] Thin prep Papanicolaou smear with manual screeningOrdered By: Jhon Capone on 01-10-2024 Thin prep Papanicolaou smear with manual screening 3.9 g/dL 3.2-5.0 [facility] Thin prep Papanicolaou smear with manual screening 28 U/L 15-37 [facility] Thin prep Papanicolaou smear with manual screening 5 5-15 [facility] Whole blood hemoglobin A1c/t otal hemoglobin ratio (mass fraction)Ordered By: Jhon Capone on 01-10-2024 HbA1c (Bld) [Mass fraction] 6.7 % 3.8-5.6 [facility] Comment on above: Normal < 5.7 % Predi abetic 5.7 - 6.4 % Diabetic >or= 6.5 % Please note range changes. Glucose Glucometer (BldC) [M ass/Vol]Ordered By: Mg Brooks on 11-12-2023 Glucose [Mass/Vol] 156 mg/dL 74-106 [facility] Comment on above: MANAGEMENT OF PATIEN T CARE PER NURSING PROTOCOL Absolute lymphocyte countOrd ered By: Mg Brooks on 11-05-2023 Lymphocytes Auto (Unsp spec) [#/Vol] 1.26 10*3/uL 0.83-4.51 [facility] Basophil percentageOrdered B y: Mg Brooks on 11-05-2023 Basophils/100 WBC (Bld) 0.5 % 0-1 [facility] Eosinophils/100 WBC (Bld) 2.5 % 0-5 [facility] Neutrophils (Bld) [#/Vol] 2.4 10*3/uL 2.0-7.7 [facility] Neutrophils/100 WBC (Bld) 55.4 % 47-70 [facility] WBC (Bld) [#/Vol] 4.3 10*3/uL 4.4-11.0 [facility] Blood erythrocytes count (nu mber/volume)Ordered By: Mg Brooks on 11-05-2023 RBC (Bld) [#/Vol] 5.15 10*6/uL 4.2-5.4 [facility] Blood hemoglobin measurement (mass/volume)Ordered By: Mg Brooks on 11-05-2023 Hemoglobin (Bld) [Mass/Vol] 13.4 g/dL 12.0-15.0 [facility] Blood lymphocytes/100 leukoc ytesOrdered By: Mg Brooks on 11-05-2023 Lymphocytes/100 WBC (Bld) 29.1 % 19-41 [facility] Blood monocytes/100 leukocyt esOrdered By: Mg Brooks on 11-05-2023 Monocytes/100 WBC (Bld) 12.5 % 0-10 [facility] Blood platelet mean volumeOr dered By: Mg Brooks on 11-05-2023 Platelet mean volume (Bld) [Entitic vol] 9.6 fL 6.2-12.0 [facility] Determination of erythrocyte mean corpuscular volume (MCV)Ordered By: Mg Brooks on 11-05-2023 MCV (RBC) [Entitic vol] 84.3 fL 81-99 [facility] Hematocrit Auto (Bld) [Volum e fraction]Ordered By: Mg Brooks on 11-05-2023 Hematocrit (Bld) [Volume fraction] 43.4 % 37-47 [facility] Laboratory - Hematology and Cell countsOrdered By: Mg Brooks on 11-05-2023 Erythrocyte distribution width (RBC) [Entitic vol] 48.7 fL 35.1-43.9 [facility] Erythrocyte distribution width (RBC) [Ratio] 15.7 % 11.6-14.6 [facility] Immature granulocytes/100 WBC (Bld) 0.000 % 0.0-0.9 [facility] Comment on above: IG% - Immature Granu locytes (promyelocytes, myelocytes and metamyelocytes) > 1% indicates that a LEFT SHIFT is Present. MCH (RBC) [Entitic mass] 26.0 pg 27.0-32.0 [facility] Nucleated RBC/100 WBC (Bld) [Ratio] 0 % 0-5 [facility] MCHC Auto (RBC) [Mass/Vol]Or dered By: Mg Brooks on 11-05-2023 MCHC (RBC) [Mass/Vol] 30.9 g/dL 32-36 [facility] Platelets bldOrdered By: Doug Brooks on 11-05-2023 Platelets (Bld) [#/Vol] 307 10*3/uL 150-450 [facility] Basophil percentageOrdered B y: River Dai on 10-09-2023 Bilirubin [Mass/Vol] 0.50 mg/dL 0.20-1.00 [facility] Comment on above: For patients on eltr ombopag therapy, use of Dim[employer] [place] TBIL is not recommended. Chloride [Moles/Vol] 110 mmol/L 98-107 [facility] Cholesterol [Mass/Vol] 101 mg/dL <200 [facility] Comment on above: <200 mg/dL Desirable 200-240 mg/dL Borderline >240 mg/dL High Risk Glucose [Mass/Vol] 135 mg/dL 74-106 [facility] Comment on above: Fasting Glucose resu lt greater than or equal to 126 mg/dL suggests DIABETES MELLITUS per A.D.A. criteria. Potassium [Moles/Vol] 4.3 mmol/L 3.5-5.1 [facility] Protein [Mass/Vol] 7.0 g/dL 6.4-8.2 [facility] Sodium [Moles/Vol] 141 mmol/L 136-145 [facility] Triglyceride [Mass/Vol] 110 mg/dL <199 [facility] Comment on above: The drugs N-Acetylcy steine and Metamizole may falsely depress this assay.Serum Triglycerides Reference Interval Normal <150 mg/dL Borderline high 150 - 199 mg/dL High 200 - 499 mg/dL Very High > or = 500 mg/dL Laboratory - Chemistry and C hemistry - challengeOrdered By: River Dai on 10-09-2023 ALP [Catalytic activity/Vol] 104 U/L 45-117 [facility] ALT [Catalytic activity/Vol] 32 U/L 13-56 [facility] CO2 [Moles/Vol] 28.0 mmol/L 21.0-32.0 [facility] Globulin (S) [Mass/Vol] 3.4 g/dL 2.2-4.2 [facility] Urea nitrogen/Creatinine [Mass ratio] 15.7 mg/mg 10-20 [facility] No Panel InformationOrdered By: River Dai on 10-09-2023 Estimated GFR (MDRD) Amer 83 mL/min >60 [facility] Comment on above: GFR Calc Estimated GFR (MDRD) Non-Af Amer 69 mL/min >60 [facility] Comment on above: Non- GFR Calc Serum or plasma albumin orlin urement (mass/volume)Ordered By: River Dai on 10-09-2023 Albumin [Mass/Vol] 3.6 g/dL 3.2-5.0 [facility] Serum or plasma albumin/glob ulin mass ratioOrdered By: River Dai on 10-09-2023 Albumin/Globulin [Mass ratio] 1.1 {ratio} 0.9-2.4 [facility] Serum or plasma calcium orlin urement (mass/volume)Ordered By: River Dai on 10-09-2023 Calcium [Mass/Vol] 8.7 mg/dL 8.5-10.1 [facility] Serum or plasma cholesterol in HDL measurement (mass/volume)Ordered By: River Dai on 10-09-2023 Cholesterol in HDL [Mass/Vol] 44 mg/dL >40 [facility] Comment on above: The drugs N-Acetylcy steine and Metamizole may falsely depress this assay. Reference Range HDL <40 mg/dL Low HDL Cholesterol HDL >or= 60 mg/dL High HDL Cholesterol Serum or plasma cholesterol in VLDL measurement (mass/volume)Ordered By: River Dai on 10-09-2023 Cholesterol in VLDL [Mass/Vol] 22 mg/dL 5-40 [facility] Serum or plasma creatinine m easurement (mass/volume)Ordered By: River Dai on 10-09-2023 Creatinine [Mass/Vol] 0.89 mg/dL 0.55-1.02 [facility] Comment on above: The validity of the calculated GFR & GFRAA in patients over 70 years has not been determined. Clinical correlation is essential. Serum or plasma low density lipoprotein (LDL) cholesterol measurement (mass/volume)Ordered By: River Dai on 10-09-2023 Cholesterol in LDL [Mass/Vol] 35 mg/dL 0-130 [facility] Serum or plasma urea nitroge n measurement (mass/volume)Ordered By: River Dai on 10-09-2023 Urea nitrogen [Mass/Vol] 14 mg/dL 7-18 [facility] Thin prep Papanicolaou smear with manual screeningOrdered By: River Dai on 10-09-2023 Thin prep Papanicolaou smear with manual screening 18 U/L 15-37 [facility] Thin prep Papanicolaou smear with manual screening 3 5-15 [facility] Whole blood hemoglobin A1c/t otal hemoglobin ratio (mass fraction)Ordered By: River Dai on 10-09-2023 HbA1c (Bld) [Mass fraction] 7.0 % 3.8-5.6 [facility] Comment on above: Normal < 5.7 % Predi abetic 5.7 - 6.4 % Diabetic >or= 6.5 % Please note range changes. Basophil percentageOrdered B y: River Dai on 07-10-2023 Bilirubin [Mass/Vol] 0.60 mg/dL 0.20-1.00 [facility] Comment on above: For patients on eltr ombopag therapy, use of [employer] [place] TBIL is not recommended. Chloride [Moles/Vol] 105 mmol/L 98-107 [facility] Glucose [Mass/Vol] 138 mg/dL 74-106 [facility] Comment on above: Fasting Glucose resu lt greater than or equal to 126 mg/dL suggests DIABETES MELLITUS per A.D.A. criteria. Potassium [Moles/Vol] 4.3 mmol/L 3.5-5.1 [facility] Protein [Mass/Vol] 7.2 g/dL 6.4-8.2 [facility] Sodium [Moles/Vol] 140 mmol/L 136-145 [facility] Laboratory - Chemistry and C hemistry - challengeOrdered By: River Dai on 07-10-2023 ALP [Catalytic activity/Vol] 118 U/L 45-117 [facility] ALT [Catalytic activity/Vol] 35 U/L 13-56 [facility] CO2 [Moles/Vol] 28.0 mmol/L 21.0-32.0 [facility] Globulin (S) [Mass/Vol] 3.4 g/dL 2.2-4.2 [facility] Urea nitrogen/Creatinine [Mass ratio] 14.3 mg/mg 10-20 [facility] No Panel InformationOrdered By: River Dai on 07-10-2023 Estimated GFR (MDRD) Amer 90 mL/min >60 [facility] Comment on above: GFR Calc Estimated GFR (MDRD) Non-Af Amer 74 mL/min >60 [facility] Comment on above: Non- GFR Calc Thyroid Stimulating Hormone (TSH) 0.80 uIU/mL 0.358-3.74 [facility] Serum or plasma albumin orlin urement (mass/volume)Ordered By: River Dai on 07-10-2023 Albumin [Mass/Vol] 3.8 g/dL 3.2-5.0 [facility] Serum or plasma albumin/glob ulin mass ratioOrdered By: River Dai on 07-10-2023 Albumin/Globulin [Mass ratio] 1.1 {ratio} 0.9-2.4 [facility] Serum or plasma calcium orlin urement (mass/volume)Ordered By: River Dai on 07-10-2023 Calcium [Mass/Vol] 8.9 mg/dL 8.5-10.1 [facility] Serum or plasma creatinine m easurement (mass/volume)Ordered By: River Dai on 07-10-2023 Creatinine [Mass/Vol] 0.84 mg/dL 0.55-1.02 [facility] Comment on above: The validity of the calculated GFR & GFRAA in patients over 70 years has not been determined. Clinical correlation is essential. Serum or plasma urea nitroge n measurement (mass/volume)Ordered By: River Dai on 07-10-2023 Urea nitrogen [Mass/Vol] 12 mg/dL 7-18 [facility] Thin prep Papanicolaou smear with manual screeningOrdered By: River Dia on 07-10-2023 Thin prep Papanicolaou smear with manual screening 23 U/L 15-37 [facility] Thin prep Papanicolaou smear with manual screening 7 5-15 [facility] Whole blood hemoglobin A1c/t otal hemoglobin ratio (mass fraction)Ordered By: River Dai on 07-10-2023 HbA1c (Bld) [Mass fraction] 6.9 % 3.8-5.6 [facility] Comment on above: Normal < 5.7 % Predi abetic 5.7 - 6.4 % Diabetic >or= 6.5 % Please note range changes. Basophil percentageOrdered B y: Dr. Dai on 04-15-2023 Bilirubin [Mass/Vol] 0.60 mg/dL 0.20-1.00 [facility] Comment on above: For patients on eltr ombopag therapy, use of [employer] [place] TBIL is not recommended. Chloride [Moles/Vol] 108 mmol/L 98-107 [facility] Cholesterol [Mass/Vol] 108 mg/dL <200 [facility] Comment on above: <200 mg/dL Desirable 200-240 mg/dL Borderline >240 mg/dL High Risk Glucose [Mass/Vol] 158 mg/dL 74-106 [facility] Comment on above: Fasting Glucose resu lt greater than or equal to 126 mg/dL suggests DIABETES MELLITUS per A.D.A. criteria. Potassium [Moles/Vol] 4.2 mmol/L 3.5-5.1 [facility] Protein [Mass/Vol] 7.3 g/dL 6.4-8.2 [facility] Sodium [Moles/Vol] 141 mmol/L 136-145 [facility] Triglyceride [Mass/Vol] 171 mg/dL <199 [facility] Comment on above: The drugs N-Acetylcy steine and Metamizole may falsely depress this assay.Serum Triglycerides Reference Interval Normal <150 mg/dL Borderline high 150 - 199 mg/dL High 200 - 499 mg/dL Very High > or = 500 mg/dL Laboratory - Chemistry and C hemistry - challengeOrdered By: Dr. Dai on 04-15-2023 ALP [Catalytic activity/Vol] 141 U/L 45-117 [facility] ALT [Catalytic activity/Vol] 32 U/L 13-56 [facility] CO2 [Moles/Vol] 26.0 mmol/L 21.0-32.0 [facility] Globulin (S) [Mass/Vol] 3.5 g/dL 2.2-4.2 [facility] Urea nitrogen/Creatinine [Mass ratio] 21.7 mg/mg 10-20 [facility] No Panel InformationOrdered By: Dr. Dai on 04-15-2023 Estimated GFR (MDRD) Amer 104 mL/min >60 [facility] Comment on above: GFR Calc Estimated GFR (MDRD) Non-Af Amer 86 mL/min >60 [facility] Comment on above: Non- GFR Calc Urine Microalbumin/Creatinine Ratio 13.9 mg/g CRE <30 [facility] Serum or plasma albumin orlin urement (mass/volume)Ordered By: Dr. Dai on 04-15-2023 Albumin [Mass/Vol] 3.8 g/dL 3.2-5.0 [facility] Serum or plasma albumin/glob ulin mass ratioOrdered By: Dr. Dai on 04-15-2023 Albumin/Globulin [Mass ratio] 1.1 {ratio} 0.9-2.4 [facility] Serum or plasma calcium orlin urement (mass/volume)Ordered By: Dr. Dai on 04-15-2023 Calcium [Mass/Vol] 9.1 mg/dL 8.5-10.1 [facility] Serum or plasma cholesterol in HDL measurement (mass/volume)Ordered By: Dr. Dai on 04-15-2023 Cholesterol in HDL [Mass/Vol] 44 mg/dL >40 [facility] Comment on above: The drugs N-Acetylcy steine and Metamizole may falsely depress this assay. Reference Range HDL <40 mg/dL Low HDL Cholesterol HDL >or= 60 mg/dL High HDL Cholesterol Serum or plasma cholesterol in VLDL measurement (mass/volume)Ordered By: Dr. Dai on 04-15-2023 Cholesterol in VLDL [Mass/Vol] 34 mg/dL 5-40 [facility] Serum or plasma creatinine m easurement (mass/volume)Ordered By: Dr. Dai on 04-15-2023 Creatinine [Mass/Vol] 0.74 mg/dL 0.55-1.02 [facility] Comment on above: The validity of the calculated GFR & GFRAA in patients over 70 years has not been determined. Clinical correlation is essential. Serum or plasma low density lipoprotein (LDL) cholesterol measurement (mass/volume)Ordered By: Dr. Dai on 04-15-2023 Cholesterol in LDL [Mass/Vol] 30 mg/dL 0-130 [facility] Serum or plasma urea nitroge n measurement (mass/volume)Ordered By: Dr. Dai on 04-15-2023 Urea nitrogen [Mass/Vol] 16 mg/dL 7-18 [facility] Thin prep Papanicolaou smear with manual screeningOrdered By: Dr. Dai on 04-15-2023 Thin prep Papanicolaou smear with manual screening 19 U/L 15-37 [facility] Thin prep Papanicolaou smear with manual screening 7 5-15 [facility] Thin prep Papanicolaou smear with manual screening 29.4 mg/L NO RANGE EST. [facility] Urine creatinine measurement (mass/volume)Ordered By: Dr. aDi on 04-15-2023 Creatinine (U) [Mass/Vol] 212.00 mg/dL NO RANGE EST. [facility] Whole blood hemoglobin A1c/t otal hemoglobin ratio (mass fraction)Ordered By: Dr. Dai on 04-15-2023 HbA1c (Bld) [Mass fraction] 7.0 % 3.8-5.6 [facility] Comment on above: Normal < 5.7 % Predi abetic 5.7 - 6.4 % Diabetic >or= 6.5 % Please note range changes. Basophil percentageOrdered B y: Dr. Dai on 2023 Bilirubin [Mass/Vol] 0.70 mg/dL 0.20-1.00 [facility] Comment on above: For patients on eltr ombopag therapy, use of [employer] [place] TBIL is not recommended. Chloride [Moles/Vol] 106 mmol/L 98-107 [facility] Cholesterol [Mass/Vol] 113 mg/dL <200 [facility] Comment on above: <200 mg/dL Desirable 200-240 mg/dL Borderline >240 mg/dL High Risk Glucose [Mass/Vol] 143 mg/dL 74-106 [facility] Comment on above: Fasting Glucose resu lt greater than or equal to 126 mg/dL suggests DIABETES MELLITUS per A.D.A. criteria. Potassium [Moles/Vol] 3.6 mmol/L 3.5-5.1 [facility] Protein [Mass/Vol] 6.9 g/dL 6.4-8.2 [facility] Sodium [Moles/Vol] 141 mmol/L 136-145 [facility] Triglyceride [Mass/Vol] 206 mg/dL <199 [facility] Comment on above: The drugs N-Acetylcy steine and Metamizole may falsely depress this assay.Serum Triglycerides Reference Interval Normal <150 mg/dL Borderline high 150 - 199 mg/dL High 200 - 499 mg/dL Very High > or = 500 mg/dL Laboratory - Chemistry and C hemistry - challengeOrdered By: Dr. Dai on 2023 ALP [Catalytic activity/Vol] 129 U/L 45-117 [facility] ALT [Catalytic activity/Vol] 38 U/L 13-56 [facility] CO2 [Moles/Vol] 27.0 mmol/L 21.0-32.0 [facility] Globulin (S) [Mass/Vol] 3.2 g/dL 2.2-4.2 [facility] Urea nitrogen/Creatinine [Mass ratio] 20.2 mg/mg 10-20 [facility] No Panel InformationOrdered By: Dr. Dai on 2023 Estimated GFR (MDRD) Amer 89 mL/min >60 [facility] Comment on above: GFR Calc Estimated GFR (MDRD) Non-Af Amer 74 mL/min >60 [facility] Comment on above: Non- GFR Calc Serum or plasma albumin orlin urement (mass/volume)Ordered By: Dr. Dai on 2023 Albumin [Mass/Vol] 3.7 g/dL 3.2-5.0 [facility] Serum or plasma albumin/glob ulin mass ratioOrdered By: Dr. Dai on 2023 Albumin/Globulin [Mass ratio] 1.2 {ratio} 0.9-2.4 [facility] Serum or plasma calcium orlin urement (mass/volume)Ordered By: Dr. Dai on 2023 Calcium [Mass/Vol] 9.2 mg/dL 8.5-10.1 [facility] Serum or plasma cholesterol in HDL measurement (mass/volume)Ordered By: Dr. Dai on 2023 Cholesterol in HDL [Mass/Vol] 41 mg/dL >40 [facility] Comment on above: The drugs N-Acetylcy steine and Metamizole may falsely depress this assay. Reference Range HDL <40 mg/dL Low HDL Cholesterol HDL >or= 60 mg/dL High HDL Cholesterol Serum or plasma cholesterol in VLDL measurement (mass/volume)Ordered By: Dr. Dai on 2023 Cholesterol in VLDL [Mass/Vol] 41 mg/dL 5-40 [facility] Serum or plasma creatinine m easurement (mass/volume)Ordered By: Dr. Dai on 2023 Creatinine [Mass/Vol] 0.84 mg/dL 0.55-1.02 [facility] Comment on above: The validity of the calculated GFR & GFRAA in patients over 70 years has not been determined. Clinical correlation is essential. Serum or plasma low density lipoprotein (LDL) cholesterol measurement (mass/volume)Ordered By: Dr. Dai on 2023 Cholesterol in LDL [Mass/Vol] 31 mg/dL 0-130 [facility] Serum or plasma urea nitroge n measurement (mass/volume)Ordered By: Dr. Dai on 2023 Urea nitrogen [Mass/Vol] 17 mg/dL 7-18 [facility] Thin prep Papanicolaou smear with manual screeningOrdered By: Dr. Dai on 2023 Thin prep Papanicolaou smear with manual screening 22 U/L 15-37 [facility] Thin prep Papanicolaou smear with manual screening 8 5-15 [facility] Whole blood hemoglobin A1c/t otal hemoglobin ratio (mass fraction)Ordered By: Dr. Dai on 2023 HbA1c (Bld) [Mass fraction] 6.8 % 3.8-5.6 [facility] Comment on above: Normal < 5.7 % Predi abetic 5.7 - 6.4 % Diabetic >or= 6.5 % Please note range changes. Glucose Glucometer (BldC) [M ass/Vol]Ordered By: Dr. Brooks on 10-09-2022 Glucose [Mass/Vol] 122 mg/dL 74-106 [facility] Comment on above: MANAGEMENT OF PATIEN T CARE PER NURSING PROTOCOL Absolute lymphocyte countOrd ered By: Dr. Dai on 09-29-2022 Lymphocytes Auto (Unsp spec) [#/Vol] 1.70 10*3/uL 0.83-4.51 [facility] Basophil percentageOrdered B y: Dr. Dai on 09-29-2022 Basophils/100 WBC (Bld) 0.3 % 0-1 [facility] Bilirubin [Mass/Vol] 0.90 mg/dL 0.20-1.00 [facility] Comment on above: For patients on eltr ombopag therapy, use of [employer] [place] TBIL is not recommended. Chloride [Moles/Vol] 103 mmol/L 98-107 [facility] Eosinophils/100 WBC (Bld) 1.9 % 0-5 [facility] Glucose [Mass/Vol] 99 mg/dL 74-106 [facility] Neutrophils (Bld) [#/Vol] 3.4 10*3/uL 2.0-7.7 [facility] Neutrophils/100 WBC (Bld) 58.8 % 47-70 [facility] Potassium [Moles/Vol] 4.0 mmol/L 3.5-5.1 [facility] Protein [Mass/Vol] 6.9 g/dL 6.4-8.2 [facility] Sodium [Moles/Vol] 139 mmol/L 136-145 [facility] WBC (Bld) [#/Vol] 5.7 10*3/uL 4.4-11.0 [facility] Blood erythrocytes count (nu mber/volume)Ordered By: Dr. Dai on 09-29-2022 RBC (Bld) [#/Vol] 4.79 10*6/uL 4.2-5.4 [facility] Blood hemoglobin measurement (mass/volume)Ordered By: Dr. Dai on 09-29-2022 Hemoglobin (Bld) [Mass/Vol] 13.2 g/dL 12.0-15.0 [facility] Blood lymphocytes/100 leukoc ytesOrdered By: Dr. Dai on 09-29-2022 Lymphocytes/100 WBC (Bld) 29.7 % 19-41 [facility] Blood monocytes/100 leukocyt esOrdered By: Dr. Dai on 09-29-2022 Monocytes/100 WBC (Bld) 9.1 % 0-10 [facility] Blood platelet mean volumeOr dered By: Dr. Dai on 09-29-2022 Platelet mean volume (Bld) [Entitic vol] 9.8 fL 6.2-12.0 [facility] Determination of erythrocyte mean corpuscular volume (MCV)Ordered By: Dr. Dai on 09-29-2022 MCV (RBC) [Entitic vol] 85.6 fL 81-99 [facility] Hematocrit Auto (Bld) [Volum e fraction]Ordered By: Dr. Dai on 09-29-2022 Hematocrit (Bld) [Volume fraction] 41.0 % 37-47 [facility] Laboratory - Chemistry and C hemistry - challengeOrdered By: Dr. Dai on 09-29-2022 ALP [Catalytic activity/Vol] 117 U/L 45-117 [facility] ALT [Catalytic activity/Vol] 37 U/L 13-56 [facility] CO2 [Moles/Vol] 29.0 mmol/L 21.0-32.0 [facility] Globulin (S) [Mass/Vol] 3.0 g/dL 2.2-4.2 [facility] Urea nitrogen/Creatinine [Mass ratio] 18.1 mg/mg 10-20 [facility] Laboratory - Hematology and Cell countsOrdered By: Dr. Dai on 09-29-2022 Erythrocyte distribution width (RBC) [Entitic vol] 44.1 fL 35.1-43.9 [facility] Erythrocyte distribution width (RBC) [Ratio] 14.3 % 11.6-14.6 [facility] Immature granulocytes/100 WBC (Bld) 0.200 % 0.0-0.9 [facility] Comment on above: IG% - Immature Granu locytes (promyelocytes, myelocytes and metamyelocytes) > 1% indicates that a LEFT SHIFT is Present. MCH (RBC) [Entitic mass] 27.6 pg 27.0-32.0 [facility] Nucleated RBC/100 WBC (Bld) [Ratio] 0 % 0-5 [facility] MCHC Auto (RBC) [Mass/Vol]Or dered By: Dr. Dai on 09-29-2022 MCHC (RBC) [Mass/Vol] 32.2 g/dL 32-36 [facility] No Panel InformationOrdered By: Dr. Dai on 09-29-2022 Estimated GFR (MDRD) Amer 108 mL/min >60 [facility] Comment on above: GFR Calc Estimated GFR (MDRD) Non-Af Amer 89 mL/min >60 [facility] Comment on above: Non- GFR Calc Platelets bldOrdered By: Dr. Dai on 09-29-2022 Platelets (Bld) [#/Vol] 279 10*3/uL 150-450 [facility] Serum or plasma albumin orlin urement (mass/volume)Ordered By: Dr. Dai on 09-29-2022 Albumin [Mass/Vol] 3.9 g/dL 3.2-5.0 [facility] Serum or plasma albumin/glob ulin mass ratioOrdered By: Dr. Dai on 09-29-2022 Albumin/Globulin [Mass ratio] 1.3 {ratio} 0.9-2.4 [facility] Serum or plasma calcium orlin urement (mass/volume)Ordered By: Dr. Dai on 09-29-2022 Calcium [Mass/Vol] 9.1 mg/dL 8.5-10.1 [facility] Serum or plasma creatinine m easurement (mass/volume)Ordered By: Dr. Dai on 09-29-2022 Creatinine [Mass/Vol] 0.72 mg/dL 0.55-1.02 [facility] Comment on above: The validity of the calculated GFR & GFRAA in patients over 70 years has not been determined. Clinical correlation is essential. Serum or plasma urea nitroge n measurement (mass/volume)Ordered By: Dr. Dai on 09-29-2022 Urea nitrogen [Mass/Vol] 13 mg/dL 7-18 [facility] Thin prep Papanicolaou smear with manual screeningOrdered By: Dr. Dai on 09-29-2022 Thin prep Papanicolaou smear with manual screening 26 U/L 15-37 [facility] Thin prep Papanicolaou smear with manual screening 7 5-15 [facility] Whole blood hemoglobin A1c/t otal hemoglobin ratio (mass fraction)Ordered By: Dr. Dai on 09-29-2022 HbA1c (Bld) [Mass fraction] 6.8 % 3.8-5.6 [facility] Comment on above: Normal < 5.7 % Predi abetic 5.7 - 6.4 % Diabetic >or= 6.5 % Please note range changes. PROTEIN ELECTROPHORESIS , SE RUM [CCL]on 08-18-2022 Albumin [Mass/Vol] 3.65 g/dL Normal 3.37-4.23 [facility] Comment on above: Performed By: #### 2 49132 #### [facility],[address] [place] [address] Alpha 1 Globulin 0.20 g/dL Normal 0.18-0.31 [facility] Comment on above: Performed By: #### 2 65653 #### [facility],[address] [place] [address] 30788 Alpha 2 Globulin 0.68 g/dL Normal 0.52-0.97 [facility] Comment on above: Performed By: #### 2 28317 #### [facility],[address] [place] [address] 49020 Beta Globulin 0.94 g/dL Normal 0.84-1.36 [facility] Comment on above: Performed By: #### 2 56330 #### [facility],[address] [place] [address] 14377 Gamma Globulin 0.74 g/dL Normal 0.70-1.44 [facility] Comment on above: Performed By: #### 2 75605 #### [facility],[address] [place] [address] 14832 M Protein Location See Below Normal [facility] Comment on above: Result Comment: Not Applicable. Performed By: #### 2 70845 #### [facility],[address] [place] [address] 90360 M-Protein Concentration 0.00 g/dL Normal <=0.00 [facility] Comment on above: Performed By: #### 2 38908 #### [facility],[address] [place] [address] 16694 Protein [Mass/Vol] 6.2 g/dL Low 6.3-8.0 [facility] Comment on above: Result Comment: [employer] [address] [place] [id number] Josafat Jose III, M.D. [id number] Performed By: #### 2 88670 #### [facility],[address] [place] [address] SPE Staff Review Reviewed by Wes Sumner MD, Ph.D ([id number]) [facility] Comment on above: Performed By: #### 2 29274 #### [facility],[address] [place], [place] [address] PROTEIN ELECTROPHORESIS UR W / PHIL [CCL]on 08-18-2022 Albumin 24.61 % Normal [facility] Comment on above: Performed By: #### 2 13765 #### [facility],[address] [place] [address] 47521 Alpha 1 Globulin 4.29 % Normal [facility] Comment on above: Performed By: #### 2 54537 #### [facility],[address] [place] [address] 89779 Alpha 2 Globulin 24.78 % Normal [facility] Comment on above: Performed By: #### 2 37125 #### [facility],[address] [place] [address] 91639 Beta Globulin 21.88 % Normal [facility] Comment on above: Performed By: #### 2 76073 #### [facility],[address] [place] [address] 44833 Comment Monoclonal Protein analysis (immunofixation) is not indicated. Normal [facility] Comment on above: Result Comment: [employer] [address] [place] [address] Josafat Jose III, M.D. [id number] Performed By: #### 2 69417 #### [facility],[address] [place] [address] 24204 Gamma Globulin 24.44 % Normal [facility] Comment on above: Performed By: #### 2 65357 #### [facility],[address] [place] [address] 01483 Interpretation No definitive M protein is identified on protein electrophoresis. Normal No definitive M protein i [facility] Comment on above: Performed By: #### 2 31948 #### [facility],[address] [place] [address] 46885 Performed By: #### 2 56556 #### [facility],[address] [place] [address] 92097 Protein (U) [Mass/Vol] 8 mg/dL Normal 0-20 [facility] Comment on above: Performed By: #### 2 55874 #### [address] [address] Staff Review Reviewed by Dr. Mark Harding MD [facility] Comment on above: Performed By: #### 2 26776 #### [address] [address] VITAMIN D, 1,25 - DIHYDROXY [CCL]on 07-27-2022 Vit D,1,25 Dihydroxy 35.4 pg/mL Normal 19.9-79.3 [facility] Comment on above: Result Comment: [facility] [address] [place] [address] Josafat Jose III, M.D. [id number] Performed By: #### 2 82418 #### [address] [address] MAGNESIUMon 07-25-2022 Magnesium [Mass/Vol] 1.9 mg/dL Normal 1.8 - 2.4 [facility] Comment on above: Performed By: #### 2 29273 #### [facility],[address] [place] [address] 68423 PTH, INTACT [CCL]on 07-25-20 PTH, Intact 43 pg/mL Normal 15-65 [facility] Comment on above: Result Comment: [facility] [address] [place] [address] Josafat Jose III, M.D. [id number] Performed By: #### 2 85939 #### [facility],[address] [place] [address] 91913 VITAMIN D, 25 HYDROXYon 07-09 VitD 50.20 ng/mL Normal 30.00 - 100 [facility] Comment on above: Result Comment: 25-O HD3 [...] D2 Not Established Performed By: #### 2 07861 #### [facility],[address] [place] [address] 75365 ALKALINE PHOSPHATASE ISOENZ [CCL]on 07-22-2022 ALK PHOS BONE % 58.6 % Normal 10.7-68.[address] [facility] Comment on above: Performed By: #### 2 77069 #### [facility],[address] [place] [address] 26086 ALK PHOS LIVER % 31.4 % Normal 26.0-86.2 [facility] Comment on above: Performed By: #### 2 08453 #### [facility],[address] [place] [address] 69904 ALP [Catalytic activity/Vol] 136 U/L High 34-123 [facility] Comment on above: Result Comment: [facility] [address] [place] [address] Josafat Jose III, M.D. [id number] Performed By: #### 2 09042 #### [facility],[address] [place] [address] 30147 BONE FRACTION 79.7 U/L High 12.9-52.6 [facility] Comment on above: Performed By: #### 2 50766 #### [facility],[address] [place] [address] 37285 INTESTINE FRACTION 13.6 U/L Normal 0.0-16.3 [facility] Comment on above: Result Comment: Caitlin ents who are blood group B or O secretors, or those who have consumed a fatty meal a few hours before the blood collection, may have elevated alkaline phosphatase intestinal fraction. Clinical correlation is required. Performed By: #### 2 73497 #### [facility],[address] [place] [address] 78411 LIVER FRACTION 42.7 U/L Normal 16.0-69.3 [facility] Comment on above: Performed By: #### 2 22896 #### [facility],[address] [place] [address] 79761 Neutrophils/100 WBC (Bld) 10.0 % Normal 0.0-24.2 [facility] Comment on above: Performed By: #### 2 31502 #### [facility],[address] [place] [address] 02542 HGB A1C [CCL]on 07-07-2022 HbA1c (Bld) [Mass fraction] 7.0 % High 4.3-5.6 [facility] Comment on above: Result Comment: Amer ican Diabetes Association guidelines indicate that patients with HgbA1c in the range 5.7-6.4% are at increased risk for development of diabetes, and intervention by lifestyle modification may be beneficial. HgbA1c greater or equal to 6.5% is considered diagnostic of diabetes. Performed By: #### 2 99913 #### [address] [address] Hemoglobin A0 154 mg/dL Normal [facility] Comment on above: Result Comment: eAG: (Estimated average glucose) is a calculated value from HgbA1c and is sales representative jewelry of the average blood glucose level in the last 2-3 month period. [facility] [employer] [address] [place] [address] Josafat Jose III, M.D. [id number] Performed By: #### 2 75532 #### [address] [address] MICROALBUMIN RANDOM URINE W/ CREATININEon 07-07-2022 Albumin Urine Random <12.0 Normal [facility] Comment on above: Performed By: #### 2 17043 #### [address] [address] Albumin/Creat Ratio <12 Normal <30 [facility] Comment on above: Result Comment: Adul t Male and Female Nephrotic Criteria: <30 mg/g is considered normal to mildly increased 30-300 mg/g is considered moderately increased >300 mg/g is considered severely increased KDIGO. (2013). KDIGO 2012 Clinical Practice Guideline for the Evaluation and Management of Chronic Kidney Disease. Official Journal of the International Society of Nephrology, 3(1), 1-150. [facility] [employer] [address] [place] [address] Josafat Jose III, M.D. [id number] Performed By: #### 2 83955 #### [address] [address] Creatinine,Urine,Ran 103.9 mg/dL Normal 20.0-300.0 [facility] Comment on above: Performed By: #### 2 31429 #### [address] [address] CMP with eGFRon 07-04-2022 AGE 57 years Normal [facility] Comment on above: Performed By: #### 2 14305 #### [facility],[address] [place] [address] 26634 Albumin [Mass/Vol] 3.8 g/dL Normal 3.4 - 5.0 [facility] Comment on above: Performed By: #### 2 31847 #### [facility],[address] [place] [address] 30741 Albumin/Globulin [Mass ratio] 1.2 {ratio} Normal 0.9 - 1.6 [facility] Comment on above: Performed By: #### 2 35299 #### [facility],[address] [place] [address] 83686 ALK PHOS 125 U/L High 46 - 116 [facility] Comment on above: Performed By: #### 2 92672 #### [facility],[address] [place] [address] 09739 ALT [Catalytic activity/Vol] 50 U/L Normal 14 - 59 [facility] Comment on above: Performed By: #### 2 86006 #### [facility],[address] [place] [address] 79690 Anion gap [Moles/Vol] 12 mmol/L Normal 10 - 20 [facility] Comment on above: Performed By: #### 2 45012 #### [facility],[address] [place] [address] 02767 AST [Catalytic activity/Vol] 27 U/L Normal 13 - 39 [facility] Comment on above: Performed By: #### 2 06995 #### [facility],[address] [place] [address] 36943 B/C RATIO 15 ratio Normal 0 - 30 [facility] Comment on above: Performed By: #### 2 44612 #### [facility],[address] [place] [address] 26515 Bilirubin [Mass/Vol] 0.7 mg/dL Normal 0.2 - 1.0 [facility] Comment on above: Performed By: #### 2 82629 #### [facility],[address] [place], [place] [address] Calcium [Mass/Vol] 8.9 mg/dL Normal 8.5 - 10.1 [facility] Comment on above: Performed By: #### 2 47620 #### [facility],[address] [place], [place] [address] Chloride [Moles/Vol] 106 mmol/L Normal 98 - 107 [facility] Comment on above: Performed By: #### 2 43674 #### [facility],[address] [place], [place] [address] CMP with eGFR Normal [facility] Comment on above: Result Comment: COMP REHENSIVE METABOLIC PANEL Performed By: #### 2 88273 #### [facility],[address] [place] [address] CO2 [Moles/Vol] 29.6 mmol/L Normal 21.0 - 32.0 [facility] Comment on above: Performed By: #### 2 48334 #### [facility],[address] [place], [place] [address] Creatinine [Mass/Vol] 0.74 mg/dL Normal 0.55 - 1.02 [facility] Comment on above: Performed By: #### 2 12272 #### [facility],[address] [place], [place] [address] GFR/1.73 sq M.predicted among non-blacks MDRD (S/P/Bld) [Vol rate/Area] mL/min/{1.73_m2} Normal 60 - 999 [facility] Comment on above: Performed By: #### 2 02976 #### [facility],[address] [place] [address] Result Comment: ACCO RDING TO THE NATIONAL KIDNEY DISEASE EDUCATION PROGRAM(NKDE), A NORMAL eGFR IS A VALUE GREATER THAN OR EQUAL TO 60 ML/MIN/1.73 SQ METERS. CHRONIC KIDNEY DISEASE: <60mL/MIN/1.73 SQ METERS KIDNEY FAILURE: <15mL/MIN/1.73 SQ METERS THIS TEST SHOULD ONLY BE USED FOR PATIENTS 18 YEARS OF AGE AND OLDER. Globulin (S) [Mass/Vol] 3.2 g/dL Normal 1.5 - 3.8 [facility] Comment on above: Performed By: #### 2 30367 #### [facility],[address] [place] [address] 79736 Glucose [Mass/Vol] 120 mg/dL High 74 - 106 [facility] Comment on above: Performed By: #### 2 94515 #### [facility],[address] [place] [address] 40305 Potassium [Moles/Vol] 4.1 mmol/L Normal 3.5 - 5.1 [facility] Comment on above: Performed By: #### 2 34797 #### [facility],[address] [place] [address] 20908 Protein [Mass/Vol] 7.0 g/dL Normal 6.4 - 8.2 [facility] Comment on above: Performed By: #### 2 51513 #### [address] [address] Sodium [Moles/Vol] 143 mmol/L Normal 136 - 145 [facility] Comment on above: Performed By: #### 2 47584 #### [facility],[address] [place] [address] 05400 Urea nitrogen [Mass/Vol] 11 mg/dL Normal 7 - 18 [facility] Comment on above: Performed By: #### 2 38491 #### [facility],[address] [place] [address] 91924 LIPID PROFILEon 07-04-2022 Cholesterol [Mass/Vol] 118 mg/dL Normal 0 - 240 [facility] Comment on above: Performed By: #### 2 32895 #### [facility],[address] [place] [address] 51222 Cholesterol in HDL [Mass/Vol] 43 mg/dL Normal 40 - 60 [facility] Comment on above: Performed By: #### 2 27260 #### [facility],[address] [place] [address] 87153 Cholesterol in LDL [Mass/Vol] 40 mg/dL Normal 0 - 129 [facility] Comment on above: Performed By: #### 2 81749 #### [facility],[address] [place] [address] 05538 Cholesterol.total/Ramonita sterol in HDL [Mass ratio] 2.7 {ratio} Normal 0.0 - 5.0 [facility] Comment on above: Performed By: #### 2 98570 #### [facility],[address] [place] [address] 88857 Lipid 1996 panel Normal [facility] Comment on above: Result Comment: LIPI D PROFILE Performed By: #### 2 79359 #### [facility],[address] [place] [address] 67579 Triglyceride [Mass/Vol] 175 mg/dL High 0 - 150 [facility] Comment on above: Performed By: #### 2 77452 #### [facility],[address] [place] [address] 88637 TSHon 07-04-2022 TSH Qn 0.70 m[IU]/L Normal 0.35 - 3.74 [facility] Comment on above: Performed By: #### 2 37986 #### [facility],[address] [place] [address] 64518 CMP with eGFR [CCL]on 2021 Albumin [Mass/Vol] 4.3 g/dL Normal 3.9-4.9 [facility] Comment on above: Performed By: #### 2 38836 #### [facility],[address] [place] [address] 89731 ALP [Catalytic activity/Vol] 97 U/L Normal 34-123 [facility] Comment on above: Performed By: #### 2 06511 #### [facility],[address] [place] [address] 71461 ALT [Catalytic activity/Vol] 29 U/L Normal 7-38 [facility] Comment on above: Performed By: #### 2 00588 #### [facility],[address] [place] [address] 80522 Anion gap [Moles/Vol] 10 mmol/L Normal 9-18 [facility] Comment on above: Performed By: #### 2 16842 #### [facility],[address] [place] [address] 85376 AST [Catalytic activity/Vol] 24 U/L Normal 13-35 [facility] Comment on above: Performed By: #### 2 86608 #### [facility],[address] [place] [address] 47034 Bilirubin [Mass/Vol] 0.3 mg/dL Normal 0.2-1.3 [facility] Comment on above: Performed By: #### 2 76196 #### [facility],[address] [place] [address] 34961 Calcium [Mass/Vol] 9.3 mg/dL Normal 8.5-10.2 [facility] Comment on above: Performed By: #### 2 21308 #### [facility],[address] [place] [address] 42258 Chloride [Moles/Vol] 106 mmol/L High 97-105 [facility] Comment on above: Performed By: #### 2 79477 #### [facility],[address] [place] [address] 22106 CO2 [Moles/Vol] 25 mmol/L Normal 22-[address] [facility] Comment on above: Performed By: #### 2 13128 #### [facility],[address] [place] [address] 11685 Creatinine [Mass/Vol] 0.70 mg/dL Normal 0.58-0.96 [facility] Comment on above: Performed By: #### 2 57098 #### [facility],[address] [place] [address] 69722 Estimated GlomerularFiltration Rate 101 mL/min/1.m??? Normal >=60 [facility] Comment on above: Result Comment: [...] eGFR may not [place] [address] Josafat Jose III, M.D. [id number] Performed By: #### 2 81881 #### [place] [id number] Glucose [Mass/Vol] 116 mg/dL High 74-99 [facility] Comment on above: Result Comment: The [place] Diabetes Association (ADA) provides guidance for cutoff [...] Standards of Medical Care in Diabetes 2016, English Diabetes Association. Diabetes Care. 2016.39(Suppl 1). Performed By: #### 2 80452 #### [facility],[address] [place] [address] 47189 Potassium [Moles/Vol] 4.6 mmol/L Normal 3.7-5.1 [facility] Comment on above: Performed By: #### 2 49545 #### [facility],[address] [place] [address] 68249 Protein [Mass/Vol] 6.7 g/dL Normal 6.3-8.0 [facility] Comment on above: Performed By: #### 2 03335 #### [facility],[address] [place] [address] 76199 Sodium [Moles/Vol] 141 mmol/L Normal 136-144 [facility] Comment on above: Performed By: #### 2 12479 #### [facility],[address] [place] [address] 14573 Urea nitrogen [Mass/Vol] 14 mg/dL Normal 7-21 [facility] Comment on above: Performed By: #### 2 26219 #### [facility],[address] [place] [address] 11691 HGB A1C [CCL]on 04-04-2022 HbA1c (Bld) [Mass fraction] 6.2 % High 4.3-5.6 [facility] Comment on above: Result Comment: Amer ican Diabetes Association guidelines indicate that patients with HgbA1c in the range 5.7-6.4% are at increased risk for development of diabetes, and intervention by lifestyle modification may be beneficial. HgbA1c greater or equal to 6.5% is considered diagnostic of diabetes. Performed By: #### 2 26613 #### [facility],[address] [place] [address] 92284 Hemoglobin A0 131 mg/dL Normal [facility] Comment on above: Result Comment: eAG: (Estimated average glucose) is a calculated value from HgbA1c and is sales representative jewelry of the average blood glucose level in the last 2-3 month period. [place] [address] [place] [address] Josafat Jose III, M.D. [id number] Performed By: #### 2 78898 #### [facility],[address] [place] [address] 02806 HGB A1C [CCL]on 01-11-2022 HbA1c (Bld) [Mass fraction] 6.3 % High 4.3-5.6 [facility] Comment on above: Result Comment: Amer ican Diabetes Association guidelines indicate that patients with HgbA1c in the range 5.7-6.4% are at increased risk for development of diabetes, and intervention by lifestyle modification may be beneficial. HgbA1c greater or equal to 6.5% is considered diagnostic of diabetes. Performed By: #### 2 13435 #### [facility],[address] [place], [place] [address] Hemoglobin A0 134 mg/dL Normal [facility] Comment on above: Result Comment: eAG: (Estimated average glucose) is a calculated value from HgbA1c and is sales representative jewelry of the average blood glucose level in the last 2-3 month period. [facility] [address] [place] [address] Josafat Jose III, M.D. [id number] Performed By: #### 2 86732 #### [facility],[address] [place] [address] 63529 CMP with eGFRon 01-10-2022 AGE 56 years Normal [facility] Comment on above: Performed By: #### 2 61135 #### [facility],[address] [place] [address] 93142 Albumin [Mass/Vol] 3.8 g/dL Normal 3.4 - 5.0 [facility] Comment on above: Performed By: #### 2 75368 #### [facility],[address] [place] [address] 39640 Albumin/Globulin [Mass ratio] 1.3 {ratio} Normal 0.9 - 1.6 [facility] Comment on above: Performed By: #### 2 31953 #### [facility],[address] [place] [address] 58119 ALK PHOS 97 U/L Normal 46 - 116 [facility] Comment on above: Performed By: #### 2 22547 #### [facility],[address] [place] [address] 22109 ALT [Catalytic activity/Vol] 64 U/L High 14 - 59 [facility] Comment on above: Performed By: #### 2 88201 #### [facility],[address] [place] [address] 75344 Anion gap [Moles/Vol] 13 mmol/L Normal 10 - 20 [facility] Comment on above: Performed By: #### 2 41617 #### [facility],[address] [place] [address] 59985 AST [Catalytic activity/Vol] 26 U/L Normal 13 - 39 [facility] Comment on above: Performed By: #### 2 25002 #### [facility],[address] [place] [address] 50085 B/C RATIO 20 ratio Normal 0 - 30 [facility] Comment on above: Performed By: #### 2 51902 #### [facility],[address] [place] [address] 25256 Bilirubin [Mass/Vol] 0.5 mg/dL Normal 0.2 - 1.0 [facility] Comment on above: Performed By: #### 2 84904 #### [facility],[address] [place] [address] 04033 Calcium [Mass/Vol] 8.6 mg/dL Normal 8.5 - 10.1 [facility] Comment on above: Performed By: #### 2 13303 #### [facility],[address] [place] [address] 63633 Chloride [Moles/Vol] 105 mmol/L Normal 98 - 107 [facility] Comment on above: Performed By: #### 2 84548 #### [facility],[address] [place] [address] 37866 CMP with eGFR Normal [facility] Comment on above: Result Comment: COMP REHENSIVE METABOLIC PANEL Performed By: #### 2 95981 #### [facility],[address] [place] [address] CO2 [Moles/Vol] 27.3 mmol/L Normal 21.0 - 32.0 [facility] Comment on above: Performed By: #### 2 07125 #### [facility],[address] [place], [place] [address] Creatinine [Mass/Vol] 0.69 mg/dL Normal 0.55 - 1.02 [facility] Comment on above: Performed By: #### 2 [id number] #### [facility],[address] [place], [place] [address] GFR/1.73 sq M.predicted among non-blacks MDRD (S/P/Bld) [Vol rate/Area] mL/min/{1.73_m2} Normal 60 - 999 [facility] Comment on above: Performed By: #### 2 14210 #### [facility],[address] [place] [address] Result Comment: ACCO RDING TO THE NATIONAL KIDNEY DISEASE EDUCATION PROGRAM(NKDE), A NORMAL eGFR IS A VALUE GREATER THAN OR EQUAL TO 60 ML/MIN/1.73 SQ METERS. CHRONIC KIDNEY DISEASE: <60mL/MIN/1.73 SQ METERS KIDNEY FAILURE: <15mL/MIN/1.73 SQ METERS THIS TEST SHOULD ONLY BE USED FOR PATIENTS 18 YEARS OF AGE AND OLDER. Globulin (S) [Mass/Vol] 3.0 g/dL Normal 1.5 - 3.8 [facility] Comment on above: Performed By: #### 2 [id number] #### [facility],[address] [place], [place] [id number] Glucose [Mass/Vol] 117 mg/dL High 74 - 106 [facility] Comment on above: Performed By: #### 2 33087 #### [facility],[address] [place], [place] [id number] Potassium [Moles/Vol] 4.5 mmol/L Normal 3.5 - 5.1 [facility] Comment on above: Performed By: #### 2 36374 #### [facility],[address] [place] [address] 20257 Protein [Mass/Vol] 6.8 g/dL Normal 6.4 - 8.2 [facility] Comment on above: Performed By: #### 2 07832 #### [facility],[address] [place] [address] 52687 Sodium [Moles/Vol] 141 mmol/L Normal 136 - 145 [facility] Comment on above: Performed By: #### 2 58132 #### [facility],[address] [place] [address] 48132 Urea nitrogen [Mass/Vol] 14 mg/dL Normal 7 - 18 [facility] Comment on above: Performed By: #### 2 60919 #### [facility],[address] [place] [address] 87417 LIPID PROFILEon 01-10-2022 Cholesterol [Mass/Vol] 117 mg/dL Normal 0 - 240 [facility] Comment on above: Performed By: #### 2 04874 #### [facility],[address] [place] [address] 00677 Cholesterol in HDL [Mass/Vol] 53 mg/dL Normal 40 - 60 [facility] Comment on above: Performed By: #### 2 12248 #### [facility],[address] [place] [address] 84226 Cholesterol in LDL [Mass/Vol] 43 mg/dL Normal 0 - 129 [facility] Comment on above: Performed By: #### 2 27330 #### [facility],[address] [place] [address] 14552 Cholesterol.total/Ramonita sterol in HDL [Mass ratio] 2.2 {ratio} Normal 0.0 - 5.0 [facility] Comment on above: Performed By: #### 2 54724 #### [facility],[address] [place] [address] 56202 Lipid 1996 panel Normal [facility] Comment on above: Result Comment: LIPI D PROFILE Performed By: #### 2 55779 #### [facility],[address] [place] [address]606 Triglyceride [Mass/Vol] 107 mg/dL Normal 0 - 150 [facility] Comment on above: Performed By: #### 2 75113 #### [facility],[address] [place] [address] 09997 TSHon 01-10-2022 TSH Qn 1.04 m[IU]/L Normal 0.35 - 3.74 [facility] Comment on above: Performed By: #### 2 02886 #### [facility],[address] [place] [address] 17379 VITAMIN D, 25 HYDROXYon - VitD 59.90 ng/mL Normal 30.00 - 100 [facility] Comment on above: Result Comment: 25-O HD3 [...] D2 Not Established Performed By: #### 2 01175 #### [facility],[address] [place] [address] 05254 HGB A1C [CCL]on 09-22-2021 Glucose [Mass/Vol] 146 mg/dL Normal [facility] Comment on above: Result Comment: eAG: (Estimated average glucose) is a calculated value from HgbA1c and is sales representative jewelry of the average blood glucose level in the last 2-3 month period. [facility] [address] [place] [address] Josafat Jose III, M.D. [id number] Performed By: #### 2 67680 #### [facility],[address] [place] [address] 88631 HbA1c (Bld) [Mass fraction] 6.7 % High 4.3-5.6 [facility] Comment on above: Result Comment: Amer ican Diabetes Association guidelines indicate that patients with HgbA1c in the range 5.7-6.4% are at increased risk for development of diabetes, and intervention by lifestyle modification may be beneficial. HgbA1c greater or equal to 6.5% is considered diagnostic of diabetes. Performed By: #### 2 80237 #### [facility],[address] [place] [address] 39651 Hemoglobin A1con 09-22-2021 Glucose [Mass/Vol] 146 mg/dL Normal [facility] Comment on above: Performed By: #### H BA1C #### [facility] Routine Lab [address] [address] HbA1c (Bld) [Mass fraction] 6.7 % High 4.3-5.6 [facility] Comment on above: Performed By: #### H BA1C #### [facility] Routine Lab [address] [address] CMP with eGFRon 09-20-2021 AGE 56 years Normal [facility] Comment on above: Performed By: #### 2 05420 #### [facility],[address] [place] [address] 59224 Albumin [Mass/Vol] 4.0 g/dL Normal 3.4 - 5.0 [facility] Comment on above: Performed By: #### 2 81206 #### [facility],[address] [place] [address] 65885 Albumin/Globulin [Mass ratio] 1.3 {ratio} Normal 0.9 - 1.6 [facility] Comment on above: Performed By: #### 2 56271 #### [facility],[address] [place] [address] 30566 ALK PHOS 96 U/L Normal 46 - 116 [facility] Comment on above: Performed By: #### 2 33786 #### [facility],[address] [place] [address] 31453 ALT [Catalytic activity/Vol] 71 U/L High 14 - 59 [facility] Comment on above: Performed By: #### 2 49389 #### [facility],[address] [place], [place] [id number] Anion gap [Moles/Vol] 13 mmol/L Normal 10 - 20 [facility] Comment on above: Performed By: #### 2 20264 #### [facility],[address] [place] [address] AST [Catalytic activity/Vol] 33 U/L Normal 13 - 39 [facility] Comment on above: Performed By: #### 2 39084 #### [facility],[address] [place] [address] B/C RATIO 17 ratio Normal 0 - 30 [facility] Comment on above: Performed By: #### 2 71664 #### [facility],[address] [place] [address] Bilirubin [Mass/Vol] 0.7 mg/dL Normal 0.2 - 1.0 [facility] Comment on above: Performed By: #### 2 23499 #### [facility],[address] [place] [address] Calcium [Mass/Vol] 9.0 mg/dL Normal 8.5 - 10.1 [facility] Comment on above: Performed By: #### 2 93455 #### [facility],[address] [place], [place] [phone] Chloride [Moles/Vol] 105 mmol/L Normal 98 - 107 [facility] Comment on above: Performed By: #### 2 61463 #### [facility],[address] [place] [address] CMP with eGFR Normal [facility] Comment on above: Result Comment: COMP REHENSIVE METABOLIC PANEL Performed By: #### 2 71631 #### [facility],[address] [place], [place] [phone] CO2 [Moles/Vol] 28.6 mmol/L Normal 21.0 - 32.0 [facility] Comment on above: Performed By: #### 2 51341 #### [facility],[address] [place] [address] 87191 Creatinine [Mass/Vol] 0.89 mg/dL Normal 0.55 - 1.02 [facility] Comment on above: Performed By: #### 2 77264 #### [facility],[address] [place], [place] [id number] GFR/1.73 sq M.predicted among non-blacks MDRD (S/P/Bld) [Vol rate/Area] mL/min/{1.73_m2} Normal 60 - 999 [facility] Comment on above: Performed By: #### 2 94415 #### [facility],[address] [place] [address] Result Comment: ACCO RDING TO THE NATIONAL KIDNEY DISEASE EDUCATION PROGRAM(NKDE), A NORMAL eGFR IS A VALUE GREATER THAN OR EQUAL TO 60 ML/MIN/1.73 SQ METERS. CHRONIC KIDNEY DISEASE: <60mL/MIN/1.73 SQ METERS KIDNEY FAILURE: <15mL/MIN/1.73 SQ METERS THIS TEST SHOULD ONLY BE USED FOR PATIENTS 18 YEARS OF AGE AND OLDER. Globulin (S) [Mass/Vol] 3.2 g/dL Normal 1.5 - 3.8 [facility] Comment on above: Performed By: #### 2 06722 #### [facility],[address] [place] [address] 81595 Glucose [Mass/Vol] 119 mg/dL High 74 - 106 [facility] Comment on above: Performed By: #### 2 80148 #### [address] [address] Potassium [Moles/Vol] 4.3 mmol/L Normal 3.5 - 5.1 [facility] Comment on above: Performed By: #### 2 90587 #### [address] [address] Protein [Mass/Vol] 7.2 g/dL Normal 6.4 - 8.2 [facility] Comment on above: Performed By: #### 2 64376 #### [facility],[address] [place] [address] Sodium [Moles/Vol] 142 mmol/L Normal 136 - 145 [facility] Comment on above: Performed By: #### 2 66721 #### [facility],[address] [place] [address] Urea nitrogen [Mass/Vol] 15 mg/dL Normal 7 - 18 [facility] Comment on above: Performed By: #### 2 78498 #### [facility],[address] [place] [address] Laboratory - Chemistry and C hemistry - challengeon 07-16-2021 Albumin/Creatinine DL <= 20 mg/L (U) [Mass ratio] - Normal [facility], [facility].; [facility], [facility] Creatinine (U) [Mass/Vol] - Normal [facility].; [place] [facility], [place] [facility] Laboratory - Urinalysison Protein Ql (U) - Normal [facility], [facility].; [place] [facility] Hemoglobin A1con 07-08-2021 Glucose [Mass/Vol] 160 mg/dL Normal [facility] Comment on above: Performed By: #### H BA1C #### [facility] Routine Lab [address] [place], [place] [address] HbA1c (Bld) [Mass fraction] 7.2 % High 4.3-5.6 [facility] Comment on above: Performed By: #### H BA1C #### [facility] Routine Lab [address] [place], [place] [address] Laboratory - Chemistry and C hemistry - challengeon 07-06-2021 Albumin [Mass/Vol] 3.7 g/dL Normal 3.4 - 5.0 g/dL [facility], [facility].; [facility] Albumin [Mass/Vol] 1.1 g/dL Normal 0.9 - 1.6 [facility] ALP [Catalytic activity/Vol] 85 U/L Normal 46 - 116 U/L [facility].; [facility]. ALT [Catalytic activity/Vol] 37 U/L Normal 14 - 59 U/L [facility].; [facility] ALT No additional P-5'-P [Catalytic activity/Vol] 37 U/L Normal 14 - 59 U/L [facility].; [facility]. AST [Catalytic activity/Vol] 20 U/L Normal 13 - 39 U/L [facility].; [facility]. Bilirubin [Mass/Vol] 0.4 mg/dL Normal 0.2 - 1 .0 mg/dL [facility].; [facility] Calcium [Mass/Vol] 8.4 mg/dL Abnormal 8.5 - 10. 1 mg/dL [facility].; [facility]. Chloride [Moles/Vol] 106 mmol/L Normal 98 - 10 7 mmol/L [facility].; [facility]. Cholesterol [Mass/Vol] 123 mg/dL Normal 0 - 2 40 mg/dL [facility].; [facility], [facility]. Cholesterol in HDL [Mass or moles/Vol] 55 mg/dL Normal 40 - 60 mg/dL [facility].; [facility]. Cholesterol in LDL [Mass/Vol] 46 mg/dL Normal 0 - 129 mg/dL [facility].; [facility] Cholesterol.total/Ramonita sterol in HDL [Mass ratio] 2.2 {ratio} Normal 0.0 - 5.0 [facility]; [facility], [facility]. CO2 [Moles/Vol] 26.9 mmol/L Normal 21.0 - 32.0 mmol/L [facility].; [place] [facility], [facility] Comprehensive metabolic 2000 panel CMP with eGFR Normal [facility]; [facility] [place] [facility] Creatinine [Mass/Vol] 0.85 mg/dL Normal 0.55 - 1.02 mg/dL [facility].; [facility], [facility]. GFR/1.73 sq M.predicted among blacks MDRD (S/P/Bld) [Vol rate/Area] mL/min/{1.73_m2} Normal 60 - 999 {ML/MINUTE} [facility], [facility].; [facility], [facility]. GFR/1.73 sq M.predicted MDRD (S/P/Bld) [Vol rate/Area] mL/min/{1.73_m2} Normal 60 - 999 {ML/MINUTE} [facility], [facility].; [place] [facility], [facility]. Globulin (S) [Mass/Vol] 3.3 g/dL Normal 1.5 - 3.8 g/dL [facility], [facility].; [place] [facility], [facility]. Glucose [Mass/Vol] 139 mg/dL Abnormal 74 - 106 mg/dL [facility].; [facility], [facility]. Lipid 1996 panel LIPID PROFILE Normal [facility].; [facility], [facility]. Potassium [Moles/Vol] 3.7 mmol/L Normal 3.5 - 5.1 mmol/L [facility].; [place] [facility], [facility]. Protein [Mass/Vol] 7.0 g/dL Normal 6.4 - 8.2 g/dL [facility], [facility].; [place] [facility], [facility]. Sodium [Moles/Vol] 142 mmol/L Normal 136 - 145 mmol/L [facility].; [place] [facility], [facility]. Triglyceride [Mass/Vol] 112 mg/dL Normal 0 - 150 mg/dL [facility].; [place] [facility], [facility]. TSH Qn 1.02 m[IU]/L Normal 0.35 - 3.74 {uIU/ml} [facility].; [place] [facility], [facility]. Urea nitrogen [Mass/Vol] 9 mg/dL Normal 7 - 18 mg/dL [facility], [facility].; [place] [facility], [facility]. Urea nitrogen/Creatinine [Mass ratio] 11 {ratio} Normal 0 - 30 {ratio} [facility].; [place] [facility], [facility]. No Panel Informationon 07-06 13 mmol/L Normal 10 - 20 mmol/L [place] [employer]. 56 {years} Normal [place] [facility] [employer] 7.2 % Abnormal 4.3 - 5.6 % [facility] ErGroups[facility].; [employer]. Work Phone: 160 mg/dL Normal [place] [employer]. Work Phone: Laboratory - Hematology and Cell countson 06-25-2021 HbA1c (Bld) [Mass fraction] - Normal 4.6 - 7.1 % [place] [employer]. Laboratory - Hematology and Cell countson 04-15-2021 HbA1c (Bld) [Mass fraction] 7.4 % Abnormal 4.6 - 7.1 % [place] [employer]. HbA1c (Bld) [Mass fraction] - Normal 4.6 - 7.1 % [place] [employer]. Laboratory - Hematology and Cell countson 12-17-2020 HbA1c (Bld) [Mass fraction] 7.3 % Abnormal 4.6 - 7.1 % [employer]. Laboratory - Chemistry and C hemistry - challengeon 08-30-2020 Albumin [Mass/Vol] 4.0 g/dL Normal 3.4 - 4.8 g/dL [place] [employer]. Albumin [Mass/Vol] 1.5 g/dL Normal 0.9 - 1.6 [place] [employer]. ALP [Catalytic activity/Vol] 86 U/L Normal 38 - 126 U/L [place] [employer]. ALT [Catalytic activity/Vol] 46 U/L Abnormal 8 - 35 U/L [place] [employer]. ALT No additional P-5'-P [Catalytic activity/Vol] 46 U/L Abnormal 8 - 35 U/L [place] [employer]. AST [Catalytic activity/Vol] 35 U/L Normal 13 - 39 U/L [facility].; [facility], [facility] Bilirubin [Mass/Vol] 0.5 mg/dL Normal 0.0 - 1 .5 mg/dL [facility].; [facility], [facility]. Calcium [Mass/Vol] 9.2 mg/dL Normal 8.6 - 10. 2 mg/dL [facility].; [facility] Chloride [Moles/Vol] 106 mmol/L Normal 98 - 10 7 mmol/L [facility]; [facility] Cholesterol [Mass/Vol] 96 mg/dL Normal 0 - 2 00 mg/dL [facility]; [facility], [facility] Cholesterol in HDL [Mass or moles/Vol] 39 mg/dL Abnormal 40 - 60 mg/dL [facility]; [facility], [facility] Cholesterol in LDL [Mass/Vol] 28 mg/dL Normal 0 - 129 mg/dL [facility].; [facility], [facility] Cholesterol.total/Ramonita sterol in HDL [Mass ratio] 2.5 {ratio} Normal 0.0 - 5.0 [facility]; [facility], [facility]. CO2 [Moles/Vol] 26.9 mmol/L Normal 21.0 - 31.0 mmol/L [facility]; [facility], [facility] Comprehensive metabolic 2000 panel CMP with eGFR Normal [facility]; [facility], [facility] Creatinine [Mass/Vol] 0.6 mg/dL Normal 0.6 - 1.2 mg/dL [facility].; [facility], [facility]. CRP [Mass/Vol] 0.17 mg/dL Normal 0.00 - 1.00 mg/dL [facility], [facility].; [facility], [facility]. GFR/1.73 sq M.predicted among blacks MDRD (S/P/Bld) [Vol rate/Area] mL/min/{1.73_m2} Normal 60 - 999 {ML/MINUTE} [facility].; [facility], [facility]. GFR/1.73 sq M.predicted MDRD (S/P/Bld) [Vol rate/Area] mL/min/{1.73_m2} Normal 60 - 999 {ML/MINUTE} [facility].; [place] [facility], [facility] Globulin (S) [Mass/Vol] 2.6 g/dL Normal 1.5 - 3.8 g/dL [facility], [facility].; [place] [facility], [facility] Glucose [Mass/Vol] 116 mg/dL Abnormal 74 - 106 mg/dL [facility].; [place] [facility], [facility] Lipid 1996 panel LIPID PROFILE Normal [facility]; [place] [facility], [facility] Potassium [Moles/Vol] 3.8 mmol/L Normal 3.5 - 5.1 mmol/L [facility]; [facility], [facility] Protein [Mass/Vol] 6.6 g/dL Normal 6.4 - 8.3 g/dL [facility], [facility]; [place] [facility], [facility] Sodium [Moles/Vol] 142 mmol/L Normal 136 - 145 mmol/L [facility]; [place] [employer] [facility]. Triglyceride [Mass/Vol] 147 mg/dL Normal 0 - 150 mg/dL [facility], [facility]; [place] [facility], [facility]. Urea nitrogen [Mass/Vol] 15 mg/dL Normal 6 - 20 mg/dL [facility], [facility].; [place] [employer] [facility]. Urea nitrogen/Creatinine [Mass ratio] 25 {ratio} Normal 0 - 30 {ratio} [facility], [facility].; [place] [employer] [facility] Laboratory - Hematology and Cell countson 08-30-2020 ESR (Bld) [Velocity] 7 mm/h Normal 0 - 30 mm/h [facility].; [place] [facility], [facility] No Panel Informationon 08-30 13 mmol/L Normal 10 - 20 mmol/L [facility], [facility].; [place] [facility], [facility]. 55 {years} Normal [facility], [facility].; [employer] 7.4 % Abnormal 4.3 - 5.6 % [facility], [facility].; [employer], [facility]. 166 mg/dL Normal [facility], [facility].; [facility]. <10 Normal [facility]; [facility]. Negative Normal [facility].; [facility] Laboratory - Hematology and Cell countson 06-12-2020 HbA1c (Bld) [Mass fraction] 7.2 % Abnormal 4.6 - 7.1 % [facility].; [place] [facility]. Laboratory - Chemistry and C hemistry - challengeon 03-12-2020 Albumin/Creatinine DL <= 20 mg/L (U) [Mass ratio] mg/g Normal [facility].; [facility], [facility] Creatinine (U) [Mass/Vol] 200 mg/dL Normal [facility].; [place] [facility], [facility]. Laboratory - Hematology and Cell countson 03-12-2020 HbA1c (Bld) [Mass fraction] 7.6 % Abnormal 4.6 - 7.1 % [facility].; [place] [employer]. Laboratory - Urinalysison Protein Ql (U) 30 mg/dL Abnormal [facility].; [place] [employer] [facility]. Laboratory - Hematology and Cell countson 12-13-2019 HbA1c (Bld) [Mass fraction] 7.3 % Abnormal 4.6 - 7.1 % [facility].; [place] [facility], [facility]. Laboratory - Chemistry and C hemistry - challengeon 10-28-2019 Cholesterol [Mass/Vol] 73 mg/dL Normal 0 - 2 00 mg/dL [facility].; [facility], [facility]. Cholesterol in HDL [Mass or moles/Vol] 34 mg/dL Abnormal 40 - 60 mg/dL [facility].; [place] [facility], [facility]. Cholesterol in LDL [Mass/Vol] 22 mg/dL Normal 0 - 129 mg/dL [facility].; [place] [facility], [facility]. Cholesterol.total/Ramonita sterol in HDL [Mass ratio] 2.1 {ratio} Normal 0.0 - 5.0 [facility].; [place] [employer] Lipid 1996 panel LIPID PROFILE Normal [facility].; [place] [facility], [place] Triglyceride [Mass/Vol] 84 mg/dL Normal 0 - 150 mg/dL [facility] [facility], [facility].; [employer] [place]. Laboratory - Chemistry and C hemistry - challengeon 09-06-2019 Cholesterol [Mass/Vol] 145 mg/dL [facility].; [place] [facility] Cholesterol in HDL [Mass/Vol] 33 mg/dL Abnormal [facility], [facility].; [place] [employer] Cholesterol in LDL [Mass/Vol] SEE NOTE Normal [facility], [facility].; [place] [employer] Cholesterol non HDL [Mass/Vol] 112 mg/dL Normal [facility], [facility].; [employer] Cholesterol.total/Ramonita sterol in HDL [Mass ratio] 4.4 {ratio} Normal [facility].; [place] [employer] Inc[employer] Triglyceride [Mass/Vol] 443 mg/dL Abnormal [facility].; [employer] [facility]. Laboratory - Hematology and Cell countson 09-06-2019 HbA1c (Bld) [Mass fraction] 8.8 % Abnormal 4.6 - 7.1 % [facility].; [employer] [place], [place]. Laboratory - Chemistry and C hemistry - challengeon 06-10-2019 Cholesterol [Mass/Vol] 152 mg/dL Normal 0 - 2 00 mg/dL [facility].; [employer] Cholesterol in HDL [Mass or moles/Vol] 34 mg/dL Abnormal 40 - 60 mg/dL [facility], [facility].; [employer] Cholesterol in LDL [Mass/Vol] 39 mg/dL Normal 0 - 129 mg/dL [place] [employer] [facility].; [employer] [place] Cholesterol.total/Ramonita sterol in HDL [Mass ratio] 4.5 {ratio} Normal 0.0 - 5.0 [place] [facility].; [employer] [place], [place]. Lipid 1996 panel LIPID PROFILE Normal [facility].; [employer] Triglyceride [Mass/Vol] 394 mg/dL Abnormal 0 - 150 mg/dL [facility], [facility].; [employer] [place], [place]. Laboratory - Hematology and Cell countson 06-06-2019 HbA1c (Bld) [Mass fraction] 8.1 % Abnormal 4.6 - 7.1 % [facility].; [employer]. Laboratory - Chemistry and C hemistry - challengeon 03-11-2019 Cholesterol [Mass/Vol] 133 mg/dL Normal 0 - 2 00 mg/dL [facility].; [employer] Cholesterol in HDL [Mass or moles/Vol] 34 mg/dL Abnormal 40 - 60 mg/dL [facility].; [place] [employer] Cholesterol in LDL [Mass/Vol] 48 mg/dL Normal 0 - 129 mg/dL [facility].; [employer]. Cholesterol.total/Ramonita sterol in HDL [Mass ratio] 3.9 {ratio} Normal 0.0 - 5.0 [facility] ErGroupsite.; [employer] Lipid 1996 panel LIPID PROFILE Normal [facility].; [employer] Triglyceride [Mass/Vol] 257 mg/dL Abnormal 0 - 150 mg/dL [place] [facility].; [employer]. Laboratory - Hematology and Cell countson 03-07-2019 HbA1c (Bld) [Mass fraction] 7.8 % Abnormal 4.6 - 7.1 % [place] [employer] [facility].; [employer]. Laboratory - Chemistry and C hemistry - challengeon 01-18-2019 Bilirubin Ql (U) Negative Normal [facility].; [employer]. Ketones Ql (U) Negative Normal [facility].; [employer]. pH (U) 7.0 [pH] Normal [employer].; [employer]. Specific gravity (U) [Rel density] 1.020 Normal [employer].; [employer]. Urobilinogen Qn (U) 0.2 mg/dL Normal [facility].; [employer]. Laboratory - Hematology and Cell countson 01-18-2019 Hemoglobin Ql (U) Negative Normal [employer].; [employer]. Laboratory - Specimen inform ationon 01-18-2019 Appearance (U) clear Normal [facility].; [employer]. Color (U) yellow Normal [place] [employer].; [employer]. Laboratory - Urinalysison Glucose Test strip (U) [Mass/Vol] Negative Normal [facility] [employer].; [employer] [place], [place]. Leukocyte esterase Test strip Ql (U) Negative Normal [place] [employer].; [employer]. Nitrite Ql (U) Negative Normal [facility] [employer].; [employer]. Protein Ql (U) trace Normal [facility].; [employer]. Laboratory - Chemistry and C hemistry - challengeon 12-24-2018 Albumin [Mass/Vol] 4.2 g/dL Normal 3.4 - 4.8 g/dL [place] [employer].; [employer] [place], [place]. Albumin [Mass/Vol] 1.7 g/dL Abnormal 0.9 - 1.6 [place] [employer].; [employer]. ALP [Catalytic activity/Vol] 91 U/L Normal 38 - 126 U/L [place] [employer].; [employer]. ALT [Catalytic activity/Vol] 28 U/L Normal 8 - 35 U/L [place] [employer].; [employer] [place], [place]. ALT No additional P-5'-P [Catalytic activity/Vol] 28 U/L Normal 8 - 35 U/L [place] [employer].; [employer]. AST [Catalytic activity/Vol] 22 U/L Normal 13 - 39 U/L [place] [employer].; [employer]. Bilirubin [Mass/Vol] 0.6 mg/dL Normal 0.0 - 1 .5 mg/dL [employer].; [employer] [place], [place]. Calcium [Mass/Vol] 9.5 mg/dL Normal 8.6 - 10. 2 mg/dL [employer].; [employer] [place], [place]. Chloride [Moles/Vol] 103 mmol/L Normal 98 - 10 7 mmol/L [employer] [place], [place]. Cholesterol [Mass/Vol] 134 mg/dL Normal 0 - 2 00 mg/dL [facility]; [facility] Cholesterol in HDL [Mass or moles/Vol] 38 mg/dL Abnormal 40 - 60 mg/dL [facility]; [facility] Cholesterol in LDL [Mass/Vol] 39 mg/dL Normal 0 - 129 mg/dL [facility]; [facility] Cholesterol.total/Ramonita sterol in HDL [Mass ratio] 3.5 {ratio} Normal 0.0 - 5.0 [facility]; [facility] CO2 [Moles/Vol] 26.9 mmol/L Normal 21.0 - 31.0 mmol/L [facility]; [facility] Comprehensive metabolic 2000 panel CMP with eGFR Normal [facility]; [facility] Creatinine [Mass/Vol] 0.7 mg/dL Normal 0.6 - 1.2 mg/dL [facility]; [facility], [place] [employer] Gamma glutamyl transferase [Catalytic activity/Vol] 28 U/L Normal 8 - 64 U/L [facility]; [facility], [facility]. GFR/1.73 sq M.predicted among blacks MDRD (S/P/Bld) [Vol rate/Area] mL/min/{1.73_m2} Normal 60 - 999 {ML/MINUTE} [facility].; [facility], [facility]. GFR/1.73 sq M.predicted MDRD (S/P/Bld) [Vol rate/Area] mL/min/{1.73_m2} Normal 60 - 999 {ML/MINUTE} [facility].; [facility], [place] [employer] Globulin (S) [Mass/Vol] 2.5 g/dL Normal 1.5 - 3.8 g/dL [facility]; [facility], [place] [employer] Glucose [Mass/Vol] 148 mg/dL Abnormal 74 - 106 mg/dL [facility].; [facility], [place] [employer] Lipid 1996 panel LIPID PROFILE Normal [facility]; [facility], [place] [employer] Potassium [Moles/Vol] 4.0 mmol/L Normal 3.5 - 5.1 mmol/L [facility].; [employer]. Protein [Mass/Vol] 6.7 g/dL Normal 6.4 - 8.3 g/dL [place] [employer].; [employer]. Sodium [Moles/Vol] 139 mmol/L Normal 136 - 145 mmol/L [place] [employer].; [employer]. Triglyceride [Mass/Vol] 287 mg/dL Abnormal 0 - 150 mg/dL [place] [employer].; [employer]. Urea nitrogen [Mass/Vol] 14 mg/dL Normal 6 - 20 mg/dL [place] [employer].; [employer]. Urea nitrogen/Creatinine [Mass ratio] 20 {ratio} Normal 0 - 30 {ratio} [place] [employer] [place], [place]. No Panel Informationon 12-24 13 mmol/L Normal 10 - 20 mmol/L [place] [employer].; [employer]. 53 {years} Normal [place] [employer].; [employer]. Laboratory - Chemistry and C hemistry - challengeon 11-16-2018 Albumin/Creatinine DL <= 20 mg/L (U) [Mass ratio] mg/g Normal [place] [employer].; [employer]. Creatinine (U) [Mass/Vol] 200 mg/dL Normal [place] [employer].; [employer]. Laboratory - Urinalysison Protein Ql (U) 30 mg/dL Abnormal [facility] Wales[facility].; [employer]. Laboratory - Chemistry and C hemistry - challengeon 11-05-2018 Albumin [Mass/Vol] 4.3 g/dL Normal 3.4 - 4.8 g/dL [place] [employer].; [employer] [place], [place]. Albumin [Mass/Vol] 1.6 g/dL Normal 0.9 - 1.6 [place] [employer].; [employer]. ALP [Catalytic activity/Vol] 71 U/L Normal 38 - 126 U/L [place] [employer].; [employer]. ALT [Catalytic activity/Vol] 20 U/L Normal 8 - 35 U/L [facility].; [facility]. ALT No additional P-5'-P [Catalytic activity/Vol] 20 U/L Normal 8 - 35 U/L [facility].; [facility], [facility]. AST [Catalytic activity/Vol] 16 U/L Normal 13 - 39 U/L [facility].; [facility], [place] [employer] Bilirubin [Mass/Vol] 0.5 mg/dL Normal 0.0 - 1 .5 mg/dL [facility].; [facility], [place] [employer] Calcium [Mass/Vol] 9.5 mg/dL Normal 8.6 - 10. 2 mg/dL [facility].; [facility] Chloride [Moles/Vol] 101 mmol/L Normal 98 - 10 7 mmol/L [facility]; [facility], [place] [employer] Cholesterol [Mass/Vol] 198 mg/dL Normal 0 - 2 00 mg/dL [facility].; [facility], [place] [employer] Cholesterol in HDL [Mass or moles/Vol] 41 mg/dL Normal 40 - 60 mg/dL [facility].; [facility], [place] [employer] Cholesterol in LDL [Mass/Vol] 104 mg/dL Normal 0 - 129 mg/dL [facility].; [facility], [place] [employer] Cholesterol.total/Ramonita sterol in HDL [Mass ratio] 4.8 {ratio} Normal 0.0 - 5.0 [facility]; [facility] [place] [employer] CO2 [Moles/Vol] 33.5 mmol/L Abnormal 21.0 - 31.0 mmol/L [facility].; [facility], [place] [employer] Comprehensive metabolic 2000 panel CMP with eGFR Normal [facility]; [facility], [place] [employer] Creatinine [Mass/Vol] 0.9 mg/dL Normal 0.6 - 1.2 mg/dL [facility].; [facility], [facility]. GFR/1.73 sq M.predicted among blacks MDRD (S/P/Bld) [Vol rate/Area] mL/min/{1.73_m2} Normal 60 - 999 {ML/MINUTE} [facility]; [employer]. GFR/1.73 sq M.predicted MDRD (S/P/Bld) [Vol rate/Area] mL/min/{1.73_m2} Normal 60 - 999 {ML/MINUTE} [facility].; [place] [facility], [place]. Globulin (S) [Mass/Vol] 2.7 g/dL Normal 1.5 - 3.8 g/dL [facility].; [place] [employer] [place]. Glucose [Mass/Vol] 133 mg/dL Abnormal 74 - 106 mg/dL [facility].; [employer]. Lipid 1996 panel LIPID PROFILE Normal [facility].; [place] [employer] [place]. Potassium [Moles/Vol] 4.1 mmol/L Normal 3.5 - 5.1 mmol/L [facility].; [place] [employer] [place]. Protein [Mass/Vol] 7.0 g/dL Normal 6.4 - 8.3 g/dL [place] [facility].; [employer] [place], [place]. Sodium [Moles/Vol] 142 mmol/L Normal 136 - 145 mmol/L [place] [facility] [facility].; [employer] [place], [place]. Triglyceride [Mass/Vol] 267 mg/dL Abnormal 0 - 150 mg/dL [place] [facility].; [employer] [place], [place]. Urea nitrogen [Mass/Vol] 11 mg/dL Normal 6 - 20 mg/dL [place] [employer] [facility].; [employer] [place], [place]. Urea nitrogen/Creatinine [Mass ratio] 12 {ratio} Normal 0 - 30 {ratio} [place] [employer] [facility].; [employer]. Laboratory - Hematology and Cell countson 11-05-2018 HbA1c (Bld) [Mass fraction] 7.0 % Abnormal 4.4 - 6.4 % [place] [employer]. No Panel Informationon 11-05 12 mmol/L Normal 10 - 20 mmol/L [place] [employer].; [employer] [place] 53 {years} Normal [place] [employer].; [employer] [place], [place]. Laboratory - Hematology and Cell countson 08-18-2018 HbA1c (Bld) [Mass fraction] 7.2 % Abnormal 4.6 - 7.1 % [facility].; [facility] [place] [employer] Laboratory - Hematology and Cell countson 05-09-2018 HbA1c (Bld) [Mass fraction] 7.3 % Abnormal 4.6 - 7.1 % [facility]; [facility]. Laboratory - Chemistry and C hemistry - challengeon 02-09-2018 Free T3 [Mass/Vol] 2.9 pg/mL Normal 2.3 - 4.2 pg/mL [facility]; [facility] [place] [employer] Free T4 [Mass/Vol] 1.1 ng/dL Normal 0.8 - 1.8 ng/dL [facility]; [facility] [place] [employer] TSH Qn 0.76 m[IU]/L Normal 0.40 - 4.50 {mIU/L} [facility]; [place] [facility] [facility] [place] [employer] Laboratory - Hematology and Cell countson 02-09-2018 HbA1c (Bld) [Mass fraction] 6.6 % Normal 4.6 - 7.1 % [facility]; [facility] [place] [employer] Laboratory - Serology - non- microon 02-09-2018 TPO Ab Qn [IU]/mL Normal [facility]; [place] [facility] [facility]. Laboratory - Chemistry and C hemistry - challengeon 11-11-2017 Albumin/Creatinine DL <= 20 mg/L (U) [Mass ratio] mg/g Normal [facility]; [facility] [place] [employer] Creatinine (U) [Mass/Vol] 300 mg/dL Normal [facility].; [place] [employer] [facility]. Laboratory - Hematology and Cell countson 11-11-2017 HbA1c (Bld) [Mass fraction] 6.1 % Normal 4.6 - 7.1 % [facility] [place] [employer]; [place] [facility] [facility]. Laboratory - Urinalysison Protein Ql (U) 30mg/L Normal [facility].; [place] [employer] [facility] Office Visiton 09-09-2017 Documentation of current medications (procedure) Done Invalid Interpretation Code [facility] Work Phone: Tobacco smoking status NHIS Never Invalid Interpretation Code [facility] Work Phone: Tobacco use [facility] Never smoker Invalid Interpretation Code [facility] Work Phone: Laboratory - Chemistry and C hemistry - challengeon 08-13-2017 Albumin [Mass/Vol] 4.5 g/dL Normal 3.4 - 4.8 g/dL [facility], [facility].; [place] [employer]. Albumin [Mass/Vol] 1.6 g/dL Normal 0.9 - 1.6 [facility], [facility].; [place] [employer] [place]. ALP [Catalytic activity/Vol] 78 U/L Normal 38 - 126 U/L [place] [employer] [facility].; [place] [employer] ALT [Catalytic activity/Vol] 30 U/L Normal 8 - 35 U/L [facility], [place].; [place] [employer] [place]. ALT No additional P-5'-P [Catalytic activity/Vol] 30 U/L Normal 8 - 35 U/L [place] [employer] [facility].; [employer] [place], [place]. AST [Catalytic activity/Vol] 27 U/L Normal 13 - 39 U/L [place] [employer] [place].; [employer] [place], [place]. Bilirubin [Mass/Vol] 0.4 mg/dL Normal 0.0 - 1 .5 mg/dL [place] [facility], [facility].; [employer] [place] Calcium [Mass/Vol] 9.3 mg/dL Normal 8.6 - 10. 2 mg/dL [place] [facility], [facility].; [employer] [place], [place]. Chloride [Moles/Vol] 103 mmol/L Normal 98 - 10 7 mmol/L [place] [facility], [facility].; [employer] [place], [place]. Cholesterol [Mass/Vol] 176 mg/dL Normal 0 - 2 00 mg/dL [place] [employer] [place].; [employer] [place], [place]. Cholesterol in HDL [Mass or moles/Vol] 38 mg/dL Abnormal 40 - 60 mg/dL [facility], [facility].; [employer] [place] Cholesterol in LDL [Mass/Vol] 102 mg/dL Normal 0 - 129 mg/dL [place] [employer] [place].; [facility]. Cholesterol.total/Ramonita sterol in HDL [Mass ratio] 4.6 {ratio} Normal 0.0 - 5.0 [facility]; [facility], [place] [employer] CO2 [Moles/Vol] 30.5 mmol/L Normal 21.0 - 31.0 mmol/L [facility].; [facility], [place] [employer] Comprehensive metabolic 2000 panel CMP with eGFR Normal [facility]; [facility], [place] [employer] Creatinine [Mass/Vol] 0.7 mg/dL Normal 0.6 - 1.2 mg/dL [facility].; [facility], [facility]. GFR/1.73 sq M.predicted among blacks MDRD (S/P/Bld) [Vol rate/Area] mL/min/{1.73_m2} Normal 60 - 999 {ML/MINUTE} [facility], [facility].; [facility], [facility]. GFR/1.73 sq M.predicted MDRD (S/P/Bld) [Vol rate/Area] mL/min/{1.73_m2} Normal 60 - 999 {ML/MINUTE} [facility], [facility].; [facility], [facility]. Globulin (S) [Mass/Vol] 2.8 g/dL Normal 1.5 - 3.8 g/dL [facility], [facility].; [facility], [facility]. Glucose [Mass/Vol] 104 mg/dL Normal 74 - 106 mg/dL [facility], [facility].; [facility], [facility]. Lipid 1996 panel LIPID PROFILE Normal [facility]; [facility], [place] [employer] Potassium [Moles/Vol] 4.3 mmol/L Normal 3.5 - 5.1 mmol/L [facility].; [facility], [place] [employer] Protein [Mass/Vol] 7.3 g/dL Normal 6.4 - 8.3 g/dL [facility], [facility].; [facility], [facility]. Sodium [Moles/Vol] 139 mmol/L Normal 136 - 145 mmol/L [facility], [facility].; [facility], [place] [employer] Triglyceride [Mass/Vol] 180 mg/dL Abnormal 0 - 150 mg/dL [facility], [facility].; [facility], Inc. Urea nitrogen [Mass/Vol] 16 mg/dL Normal 6 - 20 mg/dL [facility] ErIDE[facility].; [facility] [employer], [place]. Urea nitrogen/Creatinine [Mass ratio] 23 {ratio} Normal 0 - 30 {ratio} [facility] ErIDE[facility].; [employer] [place], [place]. No Panel Informationon 08-13 10 mmol/L Normal 10 - 20 mmol/L [facility] Er[facility].; [place] [employer]. 52 {years} Normal [facility].; [employer] [place], [place]. Laboratory - Hematology and Cell countson 08-12-2017 HbA1c (Bld) [Mass fraction] 6.7 % Normal 4.6 - 7.1 % [facility] ErGroupsite.; [employer] [place], [place]. Office Visiton 06-10-2017 Documentation of current medications (procedure) Done Invalid Interpretation Code [facility] Work Phone: Fall risk assessment No Invalid Interpretation Code [facility] Work Phone: Tobacco smoking status NHIS Never Invalid Interpretation Code [facility] Work Phone: Tobacco use [facility] Never smoker Invalid Interpretation Code [facility] Work Phone: Laboratory - Hematology and Cell countson 05-17-2017 HbA1c (Bld) [Mass fraction] 7.9 % Abnormal 4.6 - 7.1 % [facility] ErIDE[facility].; [employer] Laboratory - Chemistry and C hemistry - challengeon 04-07-2017 Bilirubin Ql (U) Small Abnormal [facility].; [employer] [place], [employer] Creatinine [Mass/Vol] 0.75 mg/dL Normal 0.50 - 1.05 mg/dL [facility] ErIDE[facility].; [place] [employer] GFR/1.73 sq M.predicted among blacks MDRD (S/P/Bld) [Vol rate/Area] 106 {ML/MIN/1.73M2} Normal [facility] ERIDEA SPHERE [facility].; [place] [employer] GFR/1.73 sq M.predicted MDRD (S/P/Bld) [Vol rate/Area] 92 {ML/MIN/1.73M2} Normal [employer] Ketones Ql (U) Negative Normal [facility] [employer]; [employer]. pH (U) 5.5 [pH] Normal [place] [employer].; [employer]. Specific gravity (U) [Rel density] >1.030 Normal [employer]; [employer] Urea nitrogen [Mass/Vol] 18 mg/dL Normal 7 - 25 mg/dL [place] [employer]; [employer] Urobilinogen Qn (U) 0.2 mg/dL Normal [facility] [employer] [facility] [employer]; [employer]. Laboratory - Hematology and Cell countson 04-07-2017 Hemoglobin Ql (U) trace, hemolyzed Abnormal [facility]; [employer]. Laboratory - Specimen inform ationon 04-07-2017 Appearance (U) clear Normal [facility] [employer]; [employer]. Color (U) yellow Normal [employer]; [employer]. Laboratory - Urinalysison Glucose Test strip (U) [Mass/Vol] 100 mg/dL Normal [employer]; [employer]. Leukocyte esterase Test strip Ql (U) Negative Normal [employer]; [employer]. Nitrite Ql (U) Negative Normal [facility] [employer]; [employer]. Protein Ql (U) 30 mg/dL Abnormal [facility] [employer]; [employer]. Laboratory - Hematology and Cell countson 02-15-2017 HbA1c (Bld) [Mass fraction] 7.1 % Normal 4.6 - 7.1 % [employer]; [employer]. Laboratory - Chemistry and C hemistry - challengeon 11-19-2016 Albumin/Creatinine DL <= 20 mg/L (U) [Mass ratio] mg/g Normal [employer]; [employer]. Creatinine (U) [Mass/Vol] 100 mg/dL Normal [facility] ErIDE[facility]PH[facility].; [facility] ErIDE[facility]PH[facility] [place] [employer] Laboratory - Hematology and Cell countson 11-19-2016 HbA1c (Bld) [Mass fraction] 7.0 % Normal 4.6 - 7.1 % [facility] ErIDE[facility]PH[facility] [place] [employer]; [place] [employer] [facility] Laboratory - Urinalysison Protein Ql (U) 30 mg/dL Abnormal [facility].; [facility] ErGroupsite Laboratory - Hematology and Cell countson 08-13-2016 HbA1c (Bld) [Mass fraction] 7.5 % Abnormal 4.6 - 7.1 % [facility].; [place] [facility], [place] Lab Report: Bedside Glucoseo n 08-11-2016 Glucose mass conc 117 mg/dL High 70-110 [facility] Work Phone: Laboratory - Hematology and Cell countson 05-13-2016 HbA1c (Bld) [Mass fraction] 9.1 % Abnormal 4.6 - 7.1 % [facility] [place] [employer]; [place] [employer] Laboratory - Chemistry and C hemistry - challengeon 03-16-2016 Albumin [Mass/Vol] 4.3 g/dL Normal 3.4 - 4.8 g/dL [facility] [place] [employer] [facility]; [facility] Er, [place] [employer] [facility] Albumin [Mass/Vol] 1.5 g/dL Normal 0.9 - 1.6 [facility].; [facility] Er, [facility]. ALP [Catalytic activity/Vol] 96 U/L Normal 38 - 126 U/L [facility].; [facility] ErGroupsite. ALT [Catalytic activity/Vol] 25 U/L Normal 8 - 35 U/L [facility].; [place] [facility], [place]. ALT No additional P-5'-P [Catalytic activity/Vol] 25 U/L Normal 8 - 35 U/L [facility].; [place] [facility], [place]. AST [Catalytic activity/Vol] 19 U/L Normal 13 - 39 U/L [facility] Er, [facility].; [place] [employer]. Bilirubin [Mass/Vol] 0.4 mg/dL Normal 0.0 - 1 .5 mg/dL [facility].; [facility] Er, [facility]. Calcium [Mass/Vol] 9.3 mg/dL Normal 8.6 - 10. 2 mg/dL [facility].; [facility] Er, [facility]. Chloride [Moles/Vol] 102 mmol/L Normal 98 - 10 7 mmol/L [facility] Er, [facility].; [facility] Er, [facility]. Cholesterol [Mass/Vol] 155 mg/dL Normal 0 - 2 00 mg/dL [facility].; [facility] Er, [facility]. Cholesterol in HDL [Mass or moles/Vol] 29 mg/dL Abnormal 40 - 60 mg/dL [facility] Er, [facility].; [facility] Er, [facility]. Cholesterol in LDL [Mass/Vol] 80 mg/dL Normal 0 - 129 mg/dL [facility] Er, [facility].; [facility] Er, [facility]. Cholesterol.total/Ramonita sterol in HDL [Mass ratio] 5.3 {ratio} Abnormal 0.0 - 5.0 [facility].; [facility] Er, [facility]. CO2 [Moles/Vol] 32.0 mmol/L Abnormal 13.0 - 29.0 mmol/L [facility].; [facility] Er, [facility]. Comprehensive metabolic 2000 panel CMP with eGFR Normal [facility].; [facility] Er, [place] [employer] Creatinine [Mass/Vol] 0.7 mg/dL Normal 0.6 - 1.2 mg/dL [facility] Er, [facility].; [facility] Er, [facility]. GFR/1.73 sq M.predicted among blacks MDRD (S/P/Bld) [Vol rate/Area] mL/min/{1.73_m2} Normal 60 - 999 {ML/MINUTE} [facility] Er, [facility].; [facility] Er, [facility]. GFR/1.73 sq M.predicted MDRD (S/P/Bld) [Vol rate/Area] mL/min/{1.73_m2} Normal 60 - 999 {ML/MINUTE} [facility] Er, [facility].; [place] [facility], [facility]. Globulin (S) [Mass/Vol] 2.8 g/dL Normal 1.5 - 3.8 g/dL [facility].; [facility] Er, [place]. Glucose [Mass/Vol] 160 mg/dL Abnormal 74 - 106 mg/dL [facility].; [place] [employer]. Lipid 1996 panel LIPID PROFILE Normal [facility].; [place] [facility] Potassium [Moles/Vol] 4.0 mmol/L Normal 3.5 - 5.1 mmol/L [facility].; [place] [employer] Protein [Mass/Vol] 7.1 g/dL Normal 6.4 - 8.3 g/dL [place] [facility].; [place]. Sodium [Moles/Vol] 139 mmol/L Normal 136 - 145 mmol/L [facility].; [place] [employer] Triglyceride [Mass/Vol] 232 mg/dL Abnormal 0 - 150 mg/dL [facility].; [place]. Urea nitrogen [Mass/Vol] 11 mg/dL Normal 6 - 20 mg/dL [facility].; [place]. Urea nitrogen/Creatinine [Mass ratio] 16 {ratio} Normal 0 - 30 {ratio} [place] [facility].; [employer]. No Panel Informationon 03-16 9 mmol/L Abnormal 10 - 20 mmol/L [facility] [place] [employer]; [place]. 51 {years} Normal [place] [facility] [place] [employer]; [employer]. Laboratory - Hematology and Cell countson 02-14-2016 HbA1c (Bld) [Mass fraction] 8.2 % Abnormal 4.6 - 7.1 % [place] [facility].; [place]. Laboratory - Chemistry and C hemistry - challengeon 10-09-2015 Albumin/Creatinine DL <= 20 mg/L (U) [Mass ratio] mg/g Normal [place] [employer].; [employer]. Creatinine (U) [Mass/Vol] 200 mg/dL Normal [place] [employer].; [employer]. Laboratory - Hematology and Cell countson 10-09-2015 HbA1c (Bld) [Mass fraction] 7.4 % Abnormal 4.6 - 7.1 % [place] [employer].; [employer]. Laboratory - Urinalysison Protein Ql (U) 10mg/L Normal [facility].; [employer]. Laboratory - Chemistry and C hemistry - challengeon 08-08-2015 Fat.microscopic observation Corona IV stain Nom (Stl) FECAL FAT QUALITATIVE Normal [facility] ErGroupsite.; [employer]. Hemoglobin.gastrointest inal Ql (Stl) See Note Normal [facility] [employer].; [place]. Laboratory - Microbiology an d Antimicrobial susceptibilityon 08-08-2015 C. difficile toxin A+B IA Ql (Stl) C DIFF COMPLETE Normal [facility] ErGroupsite.; [employer]. Ova and parasites identified Trichrome stain Nom (Stl) Normal [place] [employer] [facility]; [place]. No Panel Informationon 08-08 Observation duration YES Normal [facility].; [employer]. PASS Normal [facility] Er[employer].; [employer]. Laboratory - Chemistry and C hemistry - challengeon 07-08-2015 Bilirubin Ql (U) Negative Normal [facility].; [employer]. Ketones Ql (U) Negative [facility].; [place]. pH (U) 5.5 [pH] Normal [place] [employer].; [employer]. Specific gravity (U) [Rel density] 1.025 Normal [facility].; [employer]. Urobilinogen Qn (U) 0.2 mg/dL Normal [facility].; [employer]. Laboratory - Hematology and Cell countson 07-08-2015 Hemoglobin Ql (U) Negative Normal [place] [employer].; [employer]. Laboratory - Specimen inform ationon 07-08-2015 Appearance (U) clear Normal [facility].; [employer]. Color (U) yellow Normal [place] [employer].; [employer]. Laboratory - Urinalysison Glucose Test strip (U) [Mass/Vol] Negative Normal [place] [employer].; [employer]. Leukocyte esterase Test strip Ql (U) Negative Normal [facility].; [place] [facility]. Nitrite Ql (U) Negative Normal [facility].; [place] [facility]. Protein Ql (U) Negative Normal [facility].; [place] [facility]. Laboratory - Chemistry and C hemistry - challengeon 07-03-2015 Albumin/Creatinine DL <= 20 mg/L (U) [Mass ratio] 30-300 mg/g Abnormal [facility].; [place] [facility]. Creatinine (U) [Mass/Vol] 50 mg/dL Normal [facility].; [place] [facility]. Laboratory - Hematology and Cell countson 07-03-2015 HbA1c (Bld) [Mass fraction] 8.2 % Abnormal 4.6 - 7.1 % [facility] [place] [employer]; [place] [employer] [facility]. Laboratory - Urinalysison Protein Ql (U) 10mg/L Normal [facility].; [place] [employer] Laboratory - Chemistry and C hemistry - challengeon 02-27-2015 Albumin/Creatinine DL <= 20 mg/L (U) [Mass ratio] 30-300 mg/g Abnormal [facility].; [facility]. Creatinine (U) [Mass/Vol] 300 mg/dL Normal [facility].; [place] [employer] Laboratory - Urinalysison Protein Ql (U) 80mg/L Normal [facility].; [place] [employer] [facility]. Laboratory - Chemistry and C hemistry - challengeon 02-21-2015 Albumin [Mass/Vol] 4.1 g/dL Normal 3.4 - 4.8 g/dL [facility].; [place] [facility]. Albumin [Mass/Vol] 1.6 g/dL Normal 0.9 - 1.6 [facility].; [place] [employer]. ALP [Catalytic activity/Vol] 92 U/L Normal 38 - 126 U/L [facility] Er[facility].; [place] [employer] ALT [Catalytic activity/Vol] 36 U/L Abnormal 8 - 35 U/L [facility]. ALT No additional P-5'-P [Catalytic activity/Vol] 36 U/L Abnormal 8 - 35 U/L [facility].; [facility] Er, [facility]. AST [Catalytic activity/Vol] 22 U/L Normal 13 - 39 U/L [facility].; [facility] Bilirubin [Mass/Vol] 0.5 mg/dL Normal 0.0 - 1 .5 mg/dL [facility].; [facility] Calcium [Mass/Vol] 9.2 mg/dL Normal 8.6 - 10. 2 mg/dL [facility].; [facility]. Chloride [Moles/Vol] 104 mmol/L Normal 98 - 10 7 mmol/L [facility].; [facility] Er, [place] [employer] Cholesterol [Mass/Vol] 173 mg/dL Normal 0 - 2 00 mg/dL [facility].; [facility] Er, [facility]. Cholesterol in HDL [Mass or moles/Vol] 40 mg/dL Normal 40 - 60 mg/dL [facility].; [facility] Er, [place] [employer] Cholesterol in LDL [Mass/Vol] 92 mg/dL Normal 0 - 129 mg/dL [facility].; [facility] Er, [facility]. Cholesterol.total/Ramonita sterol in HDL [Mass ratio] 4.3 {ratio} Normal 0.0 - 5.0 [facility]; [facility]. CO2 [Moles/Vol] 29.0 mmol/L Normal 13.0 - 29.0 mmol/L [facility].; [facility] Er, [facility]. Comprehensive metabolic 2000 panel CMP with eGFR Normal [facility]; [facility] Er, [place] [employer] Creatinine [Mass/Vol] 0.7 mg/dL Normal 0.6 - 1.2 mg/dL [facility].; [facility] Er, [place] [employer] GFR/1.73 sq M.predicted among blacks MDRD (S/P/Bld) [Vol rate/Area] mL/min/{1.73_m2} Normal 60 - 999 {ML/MINUTE} [facility].; [place] [facility], [facility]. GFR/1.73 sq M.predicted MDRD (S/P/Bld) [Vol rate/Area] mL/min/{1.73_m2} Normal 60 - 999 {ML/MINUTE} [facility] Er, [facility].; [place] [facility], [place]. Globulin (S) [Mass/Vol] 2.6 g/dL Normal 1.5 - 3.8 g/dL [facility].; [facility] Er, [facility]. Glucose [Mass/Vol] 135 mg/dL Abnormal 74 - 106 mg/dL [facility].; [place] [facility], [facility]. Lipid 1996 panel LIPID PROFILE Normal [facility].; [place] [facility], [facility]. Potassium [Moles/Vol] 4.2 mmol/L Normal 3.5 - 5.1 mmol/L [facility] Er[facility].; [place] [facility], [place]. Protein [Mass/Vol] 6.7 g/dL Normal 6.4 - 8.3 g/dL [facility].; [place] [employer] [place]. Sodium [Moles/Vol] 140 mmol/L Normal 136 - 145 mmol/L [facility].; [place] [employer] [place]. Triglyceride [Mass/Vol] 205 mg/dL Abnormal 0 - 150 mg/dL [facility].; [place] [employer] [place]. Urea nitrogen [Mass/Vol] 15 mg/dL Normal 6 - 20 mg/dL [facility].; [place] [employer] [place]. Urea nitrogen/Creatinine [Mass ratio] 21 {ratio} Normal 0 - 30 {ratio} [facility].; [employer] [place], [place]. Laboratory - Hematology and Cell countson 02-21-2015 HbA1c (Bld) [Mass fraction] 7.0 % Abnormal 4.4 - 6.4 % [facility].; [employer] [place], [place]. No Panel Informationon 02-21 50 {years} Normal [facility].; [employer] [place], [place]. Laboratory - Chemistry and C hemistry - challengeon 01-31-2015 Bilirubin Ql (U) small Abnormal [facility], [facility].; [facility] HospitalGroups[facility]. Ketones Ql (U) Negative Normal [facility].; [employer]. pH (U) 5.5 [pH] Normal [facility].; [employer]. Specific gravity (U) [Rel density] 1.030 Abnormal [facility].; [employer]. Urobilinogen Qn (U) 0.2 mg/dL Normal [facility].; [place] Laboratory - Hematology and Cell countson 01-31-2015 Hemoglobin (Bld) [Mass/Vol] 13.5 g/dL Normal 11.5 - 14.2 g/dL [facility].; [employer]. Hemoglobin Ql (U) Negative Normal [facility].; [employer]. Laboratory - Specimen inform ationon 01-31-2015 Appearance (U) clear Normal [facility].; [place]. Color (U) yellow Normal [facility].; [employer]. Laboratory - Urinalysison Glucose Test strip (U) [Mass/Vol] Negative Normal [facility].; [place]. Leukocyte esterase Test strip Ql (U) Negative Normal [facility].; [employer] [place], [place]. Nitrite Ql (U) Negative Normal [facility].; [employer]. Protein Ql (U) 30 mg/dL Abnormal [facility].; [employer]. No Panel Informationon 01-31 Negative Normal [facility] ErGroups[facility].; [employer]. Laboratory - Chemistry and C hemistry - challengeon 11-15-2014 Albumin/Creatinine DL <= 20 mg/L (U) [Mass ratio] 30-300 mg/g Abnormal [facility].; [employer] [place], [place]. Bilirubin Ql (U) Negative Normal [facility] [place]. Creatinine (U) [Mass/Vol] 200 mg/dL Normal [place].; [employer]. Ketones Ql (U) Negative Normal [facility] [employer].; [employer]. pH (U) 6.5 [pH] Normal [place] [employer].; [employer]. Specific gravity (U) [Rel density] 1.020 Normal [place] [employer].; [employer]. Urobilinogen Qn (U) 0.2 mg/dL Normal [facility].; [place]. Laboratory - Hematology and Cell countson 11-15-2014 Hemoglobin Ql (U) trace, hemolyzed Abnormal [facility].; [place]. Laboratory - Specimen inform ationon 11-15-2014 Appearance (U) clear Normal [facility] [employer].; [place] Color (U) yellow Normal [place].; [employer]. Laboratory - Urinalysison Glucose Test strip (U) [Mass/Vol] Negative Normal [place].; [employer]. Leukocyte esterase Test strip Ql (U) Negative Normal [facility] Er[facility].; [employer]. Nitrite Ql (U) Negative Normal [facility].; [employer]. Protein Ql (U) 80mg/L Normal [facility].; [place]. Protein Ql (U) Negative Normal [facility].; [employer]. Laboratory - Hematology and Cell countson 08-27-2014 HbA1c (Bld) [Mass fraction] 7.4 % Abnormal 4.6 - 7.1 % [facility] [employer].; [employer]. Laboratory - Hematology and Cell countson 05-24-2014 HbA1c (Bld) [Mass fraction] 7.5 % Abnormal 4.6 - 7.1 % [place] [employer] [employer]. Laboratory - Hematology and Cell countson 02-28-2014 HbA1c (Bld) [Mass fraction] 6.4 % Normal 4.6 - 7.1 % [place].; [employer]. Laboratory - Chemistry and C hemistry - challengeon 02-17-2014 Albumin [Mass/Vol] 4.5 g/dL Normal 3.4 - 4.8 g/dL [facility].; [facility] [place] [employer] Albumin [Mass/Vol] 1.6 g/dL Normal 0.9 - 1.6 [facility].; [facility] Er, [place] [employer] ALP [Catalytic activity/Vol] 81 U/L Normal 38 - 126 U/L [facility].; [facility]. ALT [Catalytic activity/Vol] 28 U/L Normal 8 - 35 U/L [facility].; [facility] [place] [employer] ALT No additional P-5'-P [Catalytic activity/Vol] 28 U/L Normal 8 - 35 U/L [facility].; [facility] Er, [facility]. AST [Catalytic activity/Vol] 23 U/L Normal 13 - 39 U/L [facility] Er, [facility].; [place] [facility], [facility]. Bilirubin [Mass/Vol] 0.6 mg/dL Normal 0.0 - 1 .5 mg/dL [facility].; [place] [facility], [facility]. Calcium [Mass/Vol] 9.4 mg/dL Normal 8.6 - 10. 2 mg/dL [facility].; [place] [facility], [facility]. Chloride [Moles/Vol] 104 mmol/L Normal 98 - 10 7 mmol/L [facility].; [place] [facility], [facility]. Cholesterol [Mass/Vol] 198 mg/dL Normal 0 - 2 00 mg/dL [facility].; [facility] Er, [facility]. Cholesterol in HDL [Mass or moles/Vol] 44 mg/dL Normal 40 - 60 mg/dL [facility].; [place] [employer] [facility]. Cholesterol in LDL [Mass/Vol] 127 mg/dL Normal 0 - 129 mg/dL [facility].; [place] [facility], [facility]. Cholesterol.total/Ramonita sterol in HDL [Mass ratio] 4.5 {ratio} Normal 0.0 - 5.0 [facility].; [place] [employer] [place]. CO2 [Moles/Vol] 29.0 mmol/L Normal 13.0 - 29.0 mmol/L [facility].; [facility] Er, [facility]. Comprehensive metabolic 2000 panel CMP with eGFR Normal [facility].; [facility] Er, [place] [employer] Creatinine [Mass/Vol] 0.9 mg/dL Normal 0.6 - 1.2 mg/dL [facility] Er, [facility].; [place] [facility], [facility]. GFR/1.73 sq M.predicted among blacks MDRD (S/P/Bld) [Vol rate/Area] mL/min/{1.73_m2} Normal 60 - 999 {ML/MINUTE} [facility] Er, [facility].; [facility] Er, [facility]. GFR/1.73 sq M.predicted MDRD (S/P/Bld) [Vol rate/Area] mL/min/{1.73_m2} Normal 60 - 999 {ML/MINUTE} [facility] Er, [facility].; [place] [facility], [facility]. Globulin (S) [Mass/Vol] 2.8 g/dL Normal 1.5 - 3.8 g/dL [facility].; [place] [facility], [facility]. Glucose [Mass/Vol] 98 mg/dL Normal 74 - 106 mg/dL [facility].; [place] [facility], [facility]. Lipid 1996 panel LIPID PROFILE Normal [facility].; [facility] Er, [facility]. Potassium [Moles/Vol] 4.2 mmol/L Normal 3.5 - 5.1 mmol/L [facility] Er, [facility].; [place] [facility], [facility]. Protein [Mass/Vol] 7.3 g/dL Normal 6.4 - 8.3 g/dL [facility] Er, [facility].; [place] [facility], [facility]. Sodium [Moles/Vol] 138 mmol/L Normal 136 - 145 mmol/L [facility] Er, [facility].; [place] [facility], [facility]. Triglyceride [Mass/Vol] 135 mg/dL Normal 0 - 150 mg/dL [facility].; [place] [facility], [facility]. Urea nitrogen [Mass/Vol] 16 mg/dL Normal 6 - 20 mg/dL [facility] Er, [facility].; [place] [facility], [facility]. Urea nitrogen/Creatinine [Mass ratio] 18 {ratio} Normal 0 - 30 {ratio} [facility].; [place] [facility] No Panel Informationon 02-17 49 {years} Normal [facility] [place] [employer]; [facility] ErGroups[facility] Laboratory - Chemistry and C hemistry - challengeon 08-30-2013 Albumin/Creatinine DL <= 20 mg/L (U) [Mass ratio] mg/g Normal [facility].; [facility] ErGroups[facility] Creatinine (U) [Mass/Vol] 200 mg/dL Normal [facility] [place] [employer]; [place] [facility]. Laboratory - Hematology and Cell countson 08-30-2013 HbA1c (Bld) [Mass fraction] 6.5 % Normal 4.6 - 7.1 % [facility] [place] [employer]; [place] [employer] Laboratory - Urinalysison Protein Ql (U) 10mg/dl Normal [facility] [facility].; [place] [employer]. Laboratory - Chemistry and C hemistry - challengeon 07-07-2013 TSH Qn 0.81 m[IU]/L Normal 0.40 - 4.50 {mIU/L} [facility].; [place] [employer] [place]. Office Visiton 06-08-2013 Colonoscopy (procedure) Abnormal Invalid Interpretation Code [facility] Work Phone: Laboratory - Hematology and Cell countson 04-26-2013 HbA1c (Bld) [Mass fraction] 7.1 % Normal 4.6 - 7.1 % [facility] [place] [employer]; [place] [employer] [place] Laboratory - Chemistry and C hemistry - challengeon 01-21-2013 Albumin [Mass/Vol] 4.3 g/dL Normal 3.5 - 5.0 g/dL [facility].; [place] [employer] [facility], [place] [employer] Albumin/Globulin [Mass ratio] 1.8 {ratio} Abnormal [facility] [place] [employer]; [place] [employer] ALP [Catalytic activity/Vol] 112 U/L Normal 50 - 136 U/L [facility].; [place] [employer] [place]. ALT [Catalytic activity/Vol] 35 mmol/L Normal 12 - 49 mmol/L [facility].; [place] [employer] AST [Catalytic activity/Vol] 28 U/L Normal 15 - 37 U/L [facility], [facility]. Bilirubin [Mass/Vol] 0.3 mg/dL Normal 0.3 - 1 .0 mg/dL [facility], [facility].; [facility], [facility]. Calcium [Mass/Vol] 9.2 mg/dL Normal 8.4 - 10. 6 mg/dL [facility], [facility].; [facility], [facility]. Chloride [Moles/Vol] 108 mmol/L Normal 98 - 11 0 mmol/L [facility], [facility]. Cholesterol [Mass/Vol] 189 mg/dL Normal 0 - 2 00 mg/dL [facility], [facility].; [facility], [facility]. Cholesterol in HDL [Mass/Vol] 40 mg/dL Normal 40 - 60 mg/dL [facility], [facility].; [facility], [facility]. Cholesterol in LDL [Mass/Vol] 121 mg/dL Abnormal 0 - 100 mg/dL [facility], [facility].; [facility], [facility]. Cholesterol in VLDL [Mass/Vol] - Normal [facility], [facility]. Cholesterol.total/Ramonita sterol in HDL [Mass ratio] 4.7 {ratio} Normal 0 - 5.0 [facility].; [facility] Er, [facility]. CO2 [Moles/Vol] 29.0 {freeman/L} Normal 22.0 - 32.0 {freeman/L} [facility], [facility].; [place] [facility], [facility]. Creatinine [Mass/Vol] 0.7 mg/dL Normal 0.6 - 1.4 mg/dL [facility], [facility].; [facility], [facility]. Globulin (S) [Mass/Vol] 2.4 g/dL Normal 1.5 - 3.8 g/dL [facility], [facility].; [facility], [facility]. Glucose [Mass/Vol] 107 mg/dL Abnormal 75 - 105 mg/dL [facility], [facility].; [facility], [facility]. Potassium [Moles/Vol] 4.3 mmol/L Normal 3.50 - 5.00 meq/L [facility], [facility].; [facility], [facility]. Protein [Mass/Vol] 6.7 g/dL Normal 6.4 - 8.2 g/dL [facility].; [facility] [place] [facility] [employer] Sodium [Moles/Vol] 142 mmol/L Normal 136 - 145 mmol/L [facility]; [facility] [place] [employer] Triglyceride [Mass/Vol] 140 mg/dL Normal 40 - 150 mg/dL [facility] [place] [employer]; [facility] [place] [employer] Urea nitrogen [Mass/Vol] 16 mg/dL Normal 7.0 - 20.0 mg/dL [facility]; [facility] [place] [employer] Urea nitrogen/Creatinine [Mass ratio] 23 mg/mg Normal 0 - 30 [facility] [place] [employer]; [place] [facility] [place] [facility] Laboratory - Hematology and Cell countson 01-21-2013 HbA1c (Bld) [Mass fraction] 6.4 % Normal 4.6 - 7.1 % [facility]; [place] [facility] [facility] [place] [facility] No Panel Informationon 01-21 89 Normal [facility] [place] [employer]; [place] [employer] [facility]. - Normal [facility] [place] [employer]; [place] [employer] [place] [employer] Laboratory - Chemistry and C hemistry - challengeon 09-08-2012 Albumin/Creatinine DL <= 20 mg/L (U) [Mass ratio] normal Normal [facility] [place] [employer]; [place] [facility] [place] [facility] [employer] [facility] Creatinine (U) [Mass/Vol] 50 mg/dL Normal [facility] [place] [employer]; [place] [employer] [facility]. Laboratory - Urinalysison Protein Ql (U) Negative Normal [facility].; [place] [employer] [facility] [place] [employer] Laboratory - Chemistry and C hemistry - challengeon 08-20-2012 Albumin [Mass/Vol] 4.3 g/dL Normal 3.5 - 5.0 g/dL [facility].; [place] [facility] [place] [employer] Albumin/Globulin [Mass ratio] 1.9 {ratio} Abnormal [facility] [place] [employer]; [place] [employer] ALP [Catalytic activity/Vol] 124 U/L Normal 50 - 136 U/L [facility].; [place] [employer] [place] [employer] ALT [Catalytic activity/Vol] 40 mmol/L Normal 12 - 49 mmol/L [facility], [facility]. AST [Catalytic activity/Vol] 28 U/L Normal 15 - 37 U/L [facility].; [facility], [facility]. Bilirubin [Mass/Vol] 0.4 mg/dL Normal 0.3 - 1 .0 mg/dL [facility] Er, [facility].; [facility], [facility]. Calcium [Mass/Vol] 9.2 mg/dL Normal 8.4 - 10. 6 mg/dL [facility].; [facility] Er, [facility]. Chloride [Moles/Vol] 107 mmol/L Normal 98 - 11 0 mmol/L [facility].; [facility], [facility]. Cholesterol [Mass/Vol] 163 mg/dL Normal 0 - 2 00 mg/dL [facility].; [facility], [facility]. Cholesterol in HDL [Mass/Vol] 40 mg/dL Normal 40 - 60 mg/dL [facility], [facility]. Cholesterol in LDL [Mass/Vol] 69 mg/dL Normal 50.0 - 130.0 mg/dL [facility].; [facility], [facility]. Cholesterol in VLDL [Mass/Vol] - Normal [facility].; [facility], [place] [employer] Cholesterol.total/Ramonita sterol in HDL [Mass ratio] 4.1 {ratio} Normal 0 - 5.0 [facility].; [facility] Er, [facility]. CO2 [Moles/Vol] 28.0 {freeman/L} Normal 22.0 - 32.0 {freeman/L} [facility].; [facility], [facility]. Creatinine [Mass/Vol] 0.8 mg/dL Normal 0.6 - 1.4 mg/dL [facility], [facility].; [facility], [facility]. Globulin (S) [Mass/Vol] 2.3 g/dL Normal 1.5 - 3.8 g/dL [facility], [facility]. Glucose [Mass/Vol] 115 mg/dL Abnormal 75 - 105 mg/dL [facility], [facility].; [facility], [facility]. Potassium [Moles/Vol] 4.5 mmol/L Normal 3.50 - 5.00 meq/L [facility], [facility] [employer] Protein [Mass/Vol] 6.6 g/dL Normal 6.4 - 8.2 g/dL [facility].; [facility], [facility]. Sodium [Moles/Vol] 143 mmol/L Normal 136 - 145 mmol/L [facility], [facility].; [facility], [place] [employer] Triglyceride [Mass/Vol] 269 mg/dL Abnormal 40 - 150 mg/dL [facility], [place] [employer] Urea nitrogen [Mass/Vol] 14 mg/dL Normal 7.0 - 20.0 mg/dL [facility], [facility].; [facility], [facility]. Urea nitrogen/Creatinine [Mass ratio] 18 mg/mg Normal 0 - 30 [facility].; [place] [facility], [facility]. Laboratory - Hematology and Cell countson 08-20-2012 HbA1c (Bld) [Mass fraction] 7.3 % Abnormal 4.6 - 7.1 % [facility].; [place] [facility], [facility]. No Panel Informationon 08-20 - Normal [facility] [place] [employer]; [place] [facility] [facility] [place] [employer] Laboratory - Hematology and Cell countson 03-30-2012 HbA1c (Bld) [Mass fraction] 7.2 % Abnormal 4.6 - 7.1 % [facility].; [place] [employer] [facility]. Laboratory - Hematology and Cell countson 12-30-2011 HbA1c (Bld) [Mass fraction] 6.5 % Normal 4.6 - 7.1 % [facility].; [place] [facility], [facility]. Laboratory - Chemistry and C hemistry - challengeon 12-19-2011 Albumin [Mass/Vol] 5.0 g/dL Normal 3.5 - 5.0 g/dL [facility] Er, [facility].; [facility], [facility]. Albumin/Globulin [Mass ratio] 1.9 {ratio} Abnormal [facility].; [place] [facility], [facility]. ALP [Catalytic activity/Vol] 108 U/L Normal 50 - 136 U/L [facility].; [place] [facility], [facility]. ALT [Catalytic activity/Vol] 33 mmol/L Normal 12 - 49 mmol/L [facility]. AST [Catalytic activity/Vol] 27 U/L Normal 15 - 37 U/L [facility].; [facility] Bilirubin [Mass/Vol] 0.4 mg/dL Normal 0.3 - 1 .0 mg/dL [facility].; [facility], [place] [employer] Calcium [Mass/Vol] 10.1 mg/dL Normal 8.4 - 10. 6 mg/dL [facility].; [facility] Chloride [Moles/Vol] 107 mmol/L Normal 98 - 11 0 mmol/L [facility].; [facility] Er, [facility]. Cholesterol [Mass/Vol] 216 mg/dL Abnormal 0 - 2 00 mg/dL [facility].; [facility], [facility]. Cholesterol in HDL [Mass/Vol] 46 mg/dL Normal 40 - 60 mg/dL [facility].; [facility], [place] [employer] Cholesterol in LDL [Mass/Vol] 145 mg/dL Abnormal 50.0 - 130.0 mg/dL [facility].; [facility] [place] [employer] Cholesterol.total/Ramonita sterol in HDL [Mass ratio] 4.7 {ratio} Normal 0 - 5.0 [facility]; [facility], [facility]. CO2 [Moles/Vol] 28.0 {freeman/L} Normal 22.0 - 32.0 {freeman/L} [facility] Er, [facility]. Creatinine [Mass/Vol] 0.9 mg/dL Normal 0.6 - 1.4 mg/dL [facility].; [facility], [facility]. Globulin (S) [Mass/Vol] 2.6 g/dL Normal 1.5 - 3.8 g/dL [facility].; [facility], [facility]. Glucose [Mass/Vol] 97 mg/dL Normal 75 - 105 mg/dL [facility], [facility].; [facility], [facility]. Potassium [Moles/Vol] 4.7 mmol/L Normal 3.50 - 5.00 meq/L [facility] Er, [place] [employer] Protein [Mass/Vol] 7.6 g/dL Normal 6.4 - 8.2 g/dL [facility].; [place] [employer] Sodium [Moles/Vol] 143 mmol/L Normal 136 - 145 mmol/L [facility].; [place] [facility], [place]. Triglyceride [Mass/Vol] 124 mg/dL Normal 40 - 150 mg/dL [facility].; [place] [employer] [place]. Urea nitrogen [Mass/Vol] 18 mg/dL Normal 7.0 - 20.0 mg/dL [facility].; [employer], [place]. Urea nitrogen/Creatinine [Mass ratio] 20 mg/mg Normal 0 - 30 [facility].; [place] [employer] [place]. Laboratory - Chemistry and C hemistry - challengeon 08-27-2011 Albumin/Creatinine DL <= 20 mg/L (U) [Mass ratio] <30mg/d Normal [facility].; [place] [employer] [place]. Creatinine (U) [Mass/Vol] 300 mg/dL Normal [facility].; [employer], [place]. Laboratory - Urinalysison Protein Ql (U) 30 mg/dL Abnormal [facility].; [place] [employer] [place] No Panel Informationon 08-18 Negative Normal [facility] [place] [employer]; [employer] 1000 Normal [facility] [employer] [facility].; [employer] [place] normal Normal [facility] [employer] [place], [place]. 275 Normal [place] [employer] [facility].; [employer] 248 Normal [place] [employer] [facility].; [employer] 235 Normal [employer] [facility].; [employer] 153 Normal [employer] [place] Laboratory - Hematology and Cell countson 08-12-2011 HbA1c (Bld) [Mass fraction] 7.5 % Abnormal 4.6 - 7.1 % [facility].; [employer] Laboratory - Chemistry and C hemistry - challengeon 08-08-2011 Albumin [Mass/Vol] 4.5 g/dL Normal 3.5 - 5.0 g/dL [facility].; [facility]. Albumin/Globulin [Mass ratio] 1.9 {ratio} Abnormal [facility].; [facility] ALP [Catalytic activity/Vol] 130 U/L Normal 50 - 136 U/L [facility].; [facility] Er, [facility]. ALT [Catalytic activity/Vol] 39 mmol/L Normal 12 - 49 mmol/L [facility].; [facility], [facility]. AST [Catalytic activity/Vol] 28 U/L Normal 15 - 37 U/L [facility].; [facility], [place] [employer] Bilirubin [Mass/Vol] 0.4 mg/dL Normal 0.3 - 1 .0 mg/dL [facility].; [facility], [facility]. Calcium [Mass/Vol] 9.4 mg/dL Normal 8.4 - 10. 6 mg/dL [facility].; [facility] [place] [employer] Chloride [Moles/Vol] 114 mmol/L Abnormal 98 - 11 0 mmol/L [facility].; [facility], [facility]. Cholesterol [Mass/Vol] 190 mg/dL Normal 0 - 2 00 mg/dL [facility].; [facility], [facility]. Cholesterol in HDL [Mass/Vol] 43 mg/dL Normal 40 - 60 mg/dL [facility].; [facility], [facility]. Cholesterol in LDL [Mass/Vol] 96 mg/dL Normal 50.0 - 130.0 mg/dL [facility].; [facility] Er, [facility]. Cholesterol.total/Ramonita sterol in HDL [Mass ratio] 4.4 {ratio} Normal 0 - 5.0 [facility].; [facility], [facility]. CO2 [Moles/Vol] 30.0 {freeman/L} Normal 22.0 - 32.0 {freeman/L} [facility].; [facility], [facility]. Creatinine [Mass/Vol] 0.7 mg/dL Normal 0.6 - 1.4 mg/dL [facility], [facility].; [facility], [place] [employer] Globulin (S) [Mass/Vol] 2.4 g/dL Normal 1.5 - 3.8 g/dL [facility].; [facility], [facility]. Glucose [Mass/Vol] 141 mg/dL Abnormal 75 - 105 mg/dL [facility].; [facility], [facility]. Potassium [Moles/Vol] 4.8 mmol/L Normal 3.50 - 5.00 meq/L [facility].; [facility], [place] [employer] Protein [Mass/Vol] 6.9 g/dL Normal 6.4 - 8.2 g/dL [facility].; [facility], [place] [employer] Sodium [Moles/Vol] 149 mmol/L Abnormal 136 - 145 mmol/L [facility].; [facility], [place] [employer] Triglyceride [Mass/Vol] 254 mg/dL Abnormal 40 - 150 mg/dL [facility].; [facility], [place] [employer] Urea nitrogen [Mass/Vol] 11 mg/dL Normal 7.0 - 20.0 mg/dL [facility].; [facility], [place] [employer] Urea nitrogen/Creatinine [Mass ratio] 16 mg/mg Normal 0 - 30 [facility]; [facility], [place] [employer] Laboratory - Chemistry and C hemistry - challengeon 08-16-2010 Albumin [Mass/Vol] 4.4 g/dL Normal 3.5 - 5.0 g/dL [facility].; [facility] Er, [facility]. Albumin/Globulin [Mass ratio] 1.8 {ratio} Abnormal [facility]; [facility], [place] [employer] ALP [Catalytic activity/Vol] 111 U/L Normal 50 - 136 U/L [facility].; [facility] Er, [facility]. ALT [Catalytic activity/Vol] 22 mmol/L Normal 12 - 49 mmol/L [facility].; [facility], [facility]. AST [Catalytic activity/Vol] 23 U/L Normal 15 - 37 U/L [facility].; [facility] Er, [facility]. Bilirubin [Mass/Vol] 0.4 mg/dL Normal 0.3 - 1 .0 mg/dL [facility].; [facility], [place] [employer] Calcium [Mass/Vol] 9.5 mg/dL Normal 8.2 - 10. 2 mg/dL [facility].; [facility] Er, [facility]. Chloride [Moles/Vol] 106 mmol/L Normal 97.0 - 107.0 meq/L [facility].; [facility], [facility]. Cholesterol [Mass/Vol] 201 mg/dL Abnormal 0 - 2 00 mg/dL [facility], [facility].; [facility], [facility]. Cholesterol in HDL [Mass/Vol] 48 mg/dL Normal 40 - 60 mg/dL [facility], [facility]. Cholesterol in LDL [Mass/Vol] 115 mg/dL Abnormal 0 - 100 mg/dL [facility], [facility].; [facility], [facility]. Cholesterol.total/Ramonita sterol in HDL [Mass ratio] 4.2 {ratio} Normal 0 - 5.0 [facility] Er, [facility].; [facility], [facility]. CO2 [Moles/Vol] 28.0 mmol/L Normal [facility].; [facility], [facility]. Creatinine [Mass/Vol] 0.7 mg/dL Abnormal 0.8 - 1.4 mg/dL [facility], [facility].; [facility], [facility]. Globulin (S) [Mass/Vol] 2.4 g/dL Normal 1.5 - 3.8 g/dL [facility], [facility].; [facility], [facility]. Glucose [Mass/Vol] 90 mg/dL Normal 75 - 105 mg/dL [facility], [facility].; [facility], [facility]. Potassium [Moles/Vol] 4.3 mmol/L Normal 3.5 - 5 meq/L [facility], [facility].; [facility], [facility]. Protein [Mass/Vol] 6.8 g/dL Normal 6.4 - 8.2 g/dL [facility], [facility].; [facility], [facility]. Sodium [Moles/Vol] 139 mmol/L Normal 136 - 145 mmol/L [facility], [facility].; [facility] [employer] Triglyceride [Mass/Vol] 191 mg/dL Abnormal 0 - 150 mg/dL [facility], [facility].; [facility], [facility]. Urea nitrogen [Mass/Vol] 14 mg/dL Normal 7.0 - 20.0 mg/dL [facility], [facility].; [facility], [place] [employer] Urea nitrogen/Creatinine [Mass ratio] 20 mg/mg Normal 0 - 30 [facility], [place] [employer] Vital Signs Date Time Vital Sign Value Performing Clinician Facility 03-07-2025 08:35-0400 Body mass index (BMI) [Ratio] 30.05 kg/m2 Raissa Griffith APRN.[employer] SUPERINTENDENT Work Phone: [facility] 03-07-2025 08:35-0400 Body temperature 97.5 [degF] Raissa Griffith APRN.[employer] SUPERINTENDENT Work Phone: [facility] 03-07-2025 08:35-0400 Body weight 82.2 kg Raissa Griffith APRN.[employer]PER[employer]ENDENT Work Phone: [facility] 03-07-2025 08:35-0400 Diastolic blood pressure 78 mm[Hg] Raissa Griffith APRN.[employer] SUPERINTENDENT Work Phone: [facility] 03-07-2025 08:35-0400 Heart rate 82 /min Raissa Griffith APRN.[employer] SUPERINTENDENT Work Phone: [facility] 03-07-2025 08:35-0400 Respiratory rate 16 /min Raissa Griffith APRN.[employer] SUPERINTENDENT Work Phone: [facility] 03-07-2025 08:35-0400 SaO2% (BldA) [Mass fraction] 99 % Raissa Griffith APRN.[employer] SUPERINTENDENT Work Phone: [facility] 03-07-2025 08:35-0400 Systolic blood pressure 128 mm[Hg] Raissa Griffith APRN.[employer] SUPERINTENDENT Work Phone: [facility] 02-23-2025 09:00-0400 Body height 168.91 cm Dania Michel MA [facility], [facility].; [facility] 02-23-2025 09:00-0400 Body mass index (BMI) [Ratio] 28.46 kg/m2 Dania Michel MA [facility], [facility].; [facility] 02-23-2025 09:00-0400 Body surface area Derived from formula 1.92 m2 Dania Michel MA [facility], [facility].; [employer] [facility] 02-23-2025 09:00-0400 Body weight 81.19 kg Dania Michel MA [facility], [facility].; [employer] [facility] 02-23-2025 09:00-0400 Diastolic blood pressure 74 mm[Hg] Dania Michel MA [facility], [facility].; [employer] [facility] [facility] 02-23-2025 09:00-0400 Heart rate 92 /min Dania Michel MA [facility], [facility].; [employer] [facility] [facility] 02-23-2025 09:00-0400 Systolic blood pressure 109 mm[Hg] Dania Michel MA [facility], [facility].; [employer] [facility] [facility] 12-27-2024 10:38-0500 Body height 168.91 cm Itzel Pickett MA [facility], [facility].; [employer] [facility] 12-27-2024 10:38-0500 Body mass index (BMI) [Ratio] 27.71 kg/m2 Itzel Pickett MA [facility], [facility].; [employer] 12-27-2024 10:38-0500 Body surface area Derived from formula 1.9 m2 Itzel Pickett MA [facility], Inc.; [employer] 12-27-2024 10:38-0500 Body weight 79.07 kg Itzel Pickett MA [facility], Inc.; [employer] 12-27-2024 10:38-0500 Diastolic blood pressure 91 mm[Hg] Itzel Pickett MA [place] [facility], [facility].; [employer] 12-27-2024 10:38-0500 Heart rate 86 /min Itzel Pickett MA [place] [facility], [facility].; [employer] 12-27-2024 10:38-0500 Systolic blood pressure 145 mm[Hg] Itzel Pickett MA [place] [facility], [facility].; [employer] [place] 08-25-2024 15:55-0400 Body height 168.91 cm Dania Michel MA [place] [facility].; [employer] 08-25-2024 15:55-0400 Body mass index (BMI) [Ratio] 28.3 kg/m2 Dania Michel MA [facility].; [facility]. 08-25-2024 15:55-0400 Body surface area Derived from formula 1.91 m2 Dania Michel MA [facility].; [place] [facility]. 08-25-2024 15:55-0400 Body weight 80.74 kg Dania Michel MA [facility].; [place] [facility]. 08-25-2024 15:55-0400 Diastolic blood pressure 80 mm[Hg] Dania Michel MA [facility].; [facility]. 08-25-2024 15:55-0400 Heart rate 82 /min Dania Michel MA [facility].; [facility] [employer] [facility] 08-25-2024 15:55-0400 Systolic blood pressure 119 mm[Hg] Dania Michel MA [facility].; [place] [facility]. 07-11-2024 09:18-0400 Body height 165.4 cm Rupali Sage APRN.FISH HATCHERY SUPERINTENDENT Work Phone: [facility] 07-11-2024 09:18-0400 Body mass index (BMI) [Ratio] 29.22 kg/m2 Rupali Sage APRN.FISH HATCHERY SUPERINTENDENT Work Phone: [facility] 07-11-2024 09:18-0400 Body weight 79.92 kg Rupali Sage APRN.FISH HATCHERY SUPERINTENDENT Work Phone: [facility] 07-11-2024 09:18-0400 Diastolic blood pressure 76 mm[Hg] Rupali Sage APRN.FISH HATCHERY SUPERINTENDENT Work Phone: [facility] 07-11-2024 09:18-0400 Respiratory rate 16 /min Rupali Sage APRN.FISH HATCHERY SUPERINTENDENT Work Phone: [facility] 07-11-2024 09:18-0400 Systolic blood pressure 122 mm[Hg] Rupali Sage APRN.FISH HATCHERY SUPERINTENDENT Work Phone: [facility] 02-18-2024 09:04-0400 Body height 168.91 cm Dania Michel MA [facility], Inc.; [facility]. 02-18-2024 09:04-0400 Body mass index (BMI) [Ratio] 28.46 kg/m2 Dania Michel MA [facility], [facility].; [facility], [facility] 02-18-2024 09:04-0400 Body surface area Derived from formula 1.92 m2 Dania Michel MA [facility], [facility].; [facility]. 02-18-2024 09:04-0400 Body weight 81.19 kg Dania Michel MA [facility], [facility].; [facility]. 02-18-2024 09:04-0400 Diastolic blood pressure 81 mm[Hg] Dania Michel MA [facility], [facility].; [facility]. 02-18-2024 09:04-0400 Heart rate 96 /min Dania Michel MA [facility], [facility].; [facility]. 02-18-2024 09:04-0400 Systolic blood pressure 119 mm[Hg] Dania Michel MA [facility], [facility].; [facility], [facility]. 12-22-2023 11:53-0500 Body height 165.1 cm [facility] 11-12-2023 11:28-0500 Body temperature 97 [degF] [facility] 11-12-2023 11:28-0500 Diastolic blood pressure 85 mm[Hg] [facility] 11-12-2023 11:28-0500 Heart rate 93 /min [facility] 11-12-2023 11:28-0500 Respiratory rate 16 /min [facility] 11-12-2023 11:28-0500 SaO2% (BldA) [Mass fraction] 94 % [facility] 11-12-2023 11:28-0500 Systolic blood pressure 134 mm[Hg] [facility] 11-12-2023 10:00-0500 Inhaled oxygen flow rate 2 L/min [facility] 11-12-2023 06:26-0500 Body height 165.1 cm [facility] 11-12-2023 06:26-0500 Body mass index (BMI) [Ratio] 28.7 kg/m2 [facility] 11-12-2023 06:26-0500 Body weight 78.3 kg [facility] 10-19-2023 15:50-0500 Body height 168.91 cm Itzel Pickett MA [facility] [employer] 10-19-2023 15:50-0500 Body mass index (BMI) [Ratio] 27.5 kg/m2 Itzel Pickett MA [facility].; [employer] 10-19-2023 15:50-0500 Body surface area Derived from formula 1.89 m2 Itzel Pickett MA [employer] 10-19-2023 15:50-0500 Body weight 78.47 kg Itzel Pickett MA [employer] 10-19-2023 15:50-0500 Diastolic blood pressure 79 mm[Hg] Itzel Pickett MA [employer] 10-19-2023 15:50-0500 Heart rate 91 /min Itzel Pickett MA [employer] 10-19-2023 15:50-0500 Systolic blood pressure 121 mm[Hg] Itzel Pickett MA [employer] 08-06-2023 15:48-0400 Body weight 80.97 kg Itzel Pickett MA [employer] 08-06-2023 15:48-0400 Diastolic blood pressure 85 mm[Hg] Itzel Pickett MA [employer] 08-06-2023 15:48-0400 Heart rate 80 /min Itzel Pickett MA [employer] 08-06-2023 15:48-0400 Systolic blood pressure 127 mm[Hg] Itzel Pickett MA [employer] 05-10-2023 09:37-0400 Body height 166.4 cm Rupali Davilahrie CULL GRADER.FISH HATCHERY SUPERINTENDENT Work Phone: [facility] 05-10-2023 09:37-0400 Body weight 83.01 kg Rupali Sage CULL GRADER.FISH HATCHERY SUPERINTENDENT Work Phone: [facility] 05-10-2023 09:37-0400 Diastolic blood pressure 82 mm[Hg] Rupali Sage CULL GRADER.FISH HATCHERY SUPERINTENDENT Work Phone: [facility] 05-10-2023 09:37-0400 Systolic blood pressure 132 mm[Hg] Rupali Sage CULL GRADER.FISH HATCHERY SUPERINTENDENT Work Phone: [facility] 01-28-2023 09:28-0400 Body height 168.91 cm Chely Vilchis MA [facility], [facility].; [facility], [facility] 01-28-2023 09:28-0400 Body mass index (BMI) [Ratio] 29.25 kg/m2 Chely Vilchis MA [facility], [facility].; [facility] 01-28-2023 09:28-0400 Body surface area Derived from formula 1.94 m2 Chely Vilchis MA [facility], [facility].; [facility], [facility]. 01-28-2023 09:28-0400 Body weight 83.46 kg Chely Vilchis MA [facility], [facility].; [facility], [facility] 01-28-2023 09:28-0400 Diastolic blood pressure 77 mm[Hg] Chely Vilchis MA [facility], [facility].; [employer] [facility] 01-28-2023 09:28-0400 Heart rate 89 /min Chely Vilchis MA [facility], [facility].; [place] [facility], [facility] 01-28-2023 09:28-0400 Systolic blood pressure 110 mm[Hg] Chely Vilchis MA [facility], [facility].; [place] [facility] 10-09-2022 15:22-0500 Diastolic blood pressure 84 mm[Hg] [facility] 10-09-2022 15:22-0500 Heart rate 82 /min [facility] 10-09-2022 15:22-0500 Respiratory rate 18 /min [facility] 10-09-2022 15:22-0500 SaO2% (BldA) [Mass fraction] 100 % [facility] 10-09-2022 15:22-0500 Systolic blood pressure 133 mm[Hg] [facility] 10-09-2022 14:11-0500 Body temperature 97.1 [degF] [facility] 10-09-2022 08:42-0500 Body height 165.1 cm [facility] 10-09-2022 08:42-0500 Body mass index (BMI) [Ratio] 30.1 kg/m2 [facility] 10-09-2022 08:42-0500 Body weight 82.1 kg [facility] 08-13-2022 15:48-0400 Body height 168.91 cm Valerie Snow LPN [facility], [facility].; [facility] 08-13-2022 15:48-0400 Body mass index (BMI) [Ratio] 29.89 kg/m2 Valerie Snow LPN [facility], [facility].; [place] [facility], [facility] 08-13-2022 15:48-0400 Body surface area Derived from formula 1.96 m2 Valerie Snow LPN [facility], [facility].; [place] [facility], [facility] 08-13-2022 15:48-0400 Body weight 85.28 kg Valerie Snow LPN [facility], [facility].; [place] [facility], [facility] 08-13-2022 15:48-0400 Diastolic blood pressure 78 mm[Hg] Valerie Snow LPN [facility], [facility].; [place] [facility], [facility]. 08-13-2022 15:48-0400 Heart rate 94 /min [facility]eriejon [facility], [facility].; [facility] [facility], [facility]. 08-13-2022 15:48-0400 Systolic blood pressure 118 mm[Hg] Valerie Snow LPN [facility], [facility].; [facility] 01-28-2022 10:23-0400 Body height 168.91 cm Valerie Snow LPN [facility], [facility].; [facility]. 01-28-2022 10:23-0400 Body mass index (BMI) [Ratio] 27.66 kg/m2 Valerie Snow LPN [facility].; [facility]. 01-28-2022 10:23-0400 Body surface area Derived from formula 1.9 m2 Valerie Snow LPN [facility], [facility].; [employer] [facility]. 01-28-2022 10:23-0400 Body weight 78.93 kg Valerie Snow LPN [facility].; [employer] [facility]. 01-28-2022 10:23-0400 Diastolic blood pressure 88 mm[Hg] Valerie [facility] ZABALA [facility].; [place] [facility]. 01-28-2022 10:23-0400 Heart rate 88 /min Valerie Snow LPN [facility].; [employer] [facility]. 01-28-2022 10:23-0400 Systolic blood pressure 125 mm[Hg] Valerie Snow LPN [place] [facility].; [facility] [facility]. 12-02-2021 08:48-0500 Body height 168.91 cm Damari Tijerina RN [place] [facility].; [employer] [facility]. 12-02-2021 08:48-0500 Body mass index (BMI) [Ratio] 27.82 kg/m2 Damari Tijerina RN [place] [facility].; [employer] [facility]. 12-02-2021 08:48-0500 Body surface area Derived from formula 1.9 m2 Damari Tijerina RN [place] [facility].; [employer] 12-02-2021 08:48-0500 Body temperature 98.4 [degF] Damari Tijerina RN [place] [facility].; [employer] 12-02-2021 08:48-0500 Body weight 79.38 kg Damari Tijerina RN [place] [facility].; [employer] 12-02-2021 08:48-0500 Diastolic blood pressure 81 mm[Hg] Damari Tijerina RN [facility].; [employer] [facility]. 12-02-2021 08:48-0500 Heart rate 85 /min Damari Tijerina RN [facility].; [facility], [facility]. 12-02-2021 08:48-0500 Inhaled oxygen concentration 20 % Damari Tijerina RN [facility].; [facility]. 12-02-2021 08:48-0500 Inhaled oxygen concentration 21 % Damari Tijerina RN [facility].; [facility]. 12-02-2021 08:48-0500 SaO2% (BldA) [Mass fraction] 98 % Damari Tijerina RN [facility].; [place] [facility], [facility]. 12-02-2021 08:48-0500 Systolic blood pressure 124 mm[Hg] Damari Tijerina RN [facility].; [place] [facility]. 07-17-2021 13:20-0400 Body height 168.91 cm Avril Andersen MA [facility], [facility].; [facility], [facility]. 07-17-2021 13:20-0400 Body mass index (BMI) [Ratio] 29.25 kg/m2 Avril Andersen MA [facility], [facility].; [place] [facility], [facility]. 07-17-2021 13:20-0400 Body surface area Derived from formula 1.94 m2 Avril Andersen MA [facility], [facility].; [place] [facility]. 07-17-2021 13:20-0400 Body weight 83.46 kg Avril Andersen MA [facility], [facility].; [employer] [facility], [facility]. 07-17-2021 13:20-0400 Diastolic blood pressure 78 mm[Hg] Avril Andersen MA [facility], [facility].; [place] [facility], [facility]. 07-17-2021 13:20-0400 Heart rate 84 /min Avril Andersen MA [facility], [facility].; [employer] [facility]. 07-17-2021 13:20-0400 Systolic blood pressure 113 mm[Hg] Avril Andersen MA [facility].; [facility]. 04-15-2021 14:24-0400 Body height 168.91 cm Avril Andersen MA [facility].; [facility]. 04-15-2021 14:24-0400 Body mass index (BMI) [Ratio] 29.89 kg/m2 Avril Andersen MA [facility].; [facility]. 04-15-2021 14:24-0400 Body surface area Derived from formula 1.96 m2 Avril Andersen MA [facility].; [facility]. 04-15-2021 14:240400 Body weight 85.28 kg Avril Andersen MA [facility].; [facility]. 04-15-2021 14:24-0400 Diastolic blood pressure 81 mm[Hg] Avril Andersen MA [facility].; [facility]. 04-15-2021 14:24-0400 Heart rate 83 /min Avril Andersen MA [facility].; [facility]. 04-15-2021 14:24-0400 Systolic blood pressure 116 mm[Hg] Avril Andersen MA [facility].; [facility], [facility]. 03-24-2021 13:55-0400 Body height 168.91 cm Neilee L Vess BLOOD BANK CREDIT CLERK [facility], [facility].; [facility] [facility], [facility]. 03-24-2021 13:55-0400 Body mass index (BMI) [Ratio] 30.21 kg/m2 Neilee L Vess BLOOD BANK CREDIT CLERK [facility].; [place] [facility]. 03-24-2021 13:55-0400 Body surface area Derived from formula 1.97 m2 Neilee L Vess BLOOD BANK CREDIT CLERK [facility].; [place] [employer] [facility]. 03-24-2021 13:55-0400 Body weight 86.18 kg Neilee L Vess BLOOD BANK CREDIT CLERK [facility].; [employer], [facility]. 03-24-2021 13:55-0400 Diastolic blood pressure 88 mm[Hg] Neilee L Vess BLOOD BANK CREDIT CLERK [facility].; [place] [employer] [facility]. 03-24-2021 13:55-0400 Heart rate 88 /min Neilee L Vess BLOOD BANK CREDIT CLERK [facility].; [facility]. 03-24-2021 13:55-0400 Systolic blood pressure 152 mm[Hg] Neilee L Vess BLOOD BANK CREDIT CLERK [facility].; [place] [employer] [facility]. 2021 09:12-0500 Body height 168.91 cm Neilee L Vess BLOOD BANK CREDIT CLERK [facility].; [place] [facility]. 2021 09:12-0500 Body mass index (BMI) [Ratio] 30.05 kg/m2 Neilee L Vess BLOOD BANK CREDIT CLERK [facility].; [place] [facility]. 2021 09:12-0500 Body surface area Derived from formula 1.96 m2 Neilee L Vess BLOOD BANK CREDIT CLERK [facility].; [place] [facility]. 2021 09:12-0500 Body weight 85.73 kg Neilee L Vess BLOOD BANK CREDIT CLERK [facility].; [place] [facility]. 2021 09:12-0500 Diastolic blood pressure 84 mm[Hg] Neilee L Vess BLOOD BANK CREDIT CLERK [facility].; [place] [facility]. 2021 09:12-0500 Heart rate 83 /min Neilee L Vess BLOOD BANK CREDIT CLERK [facility].; [place] [facility]. 2021 09:12-0500 Systolic blood pressure 132 mm[Hg] Neilee L Vess BLOOD BANK CREDIT CLERK [facility].; [place] [facility]. 12-17-2020 09:50-0500 Body height 168.91 cm Neilee L Vess BLOOD BANK CREDIT CLERK [place] [facility].; [place] [facility]. 12-17-2020 09:50-0500 Body mass index (BMI) [Ratio] 30.21 kg/m2 Neilee L Vess BLOOD BANK CREDIT CLERK [place] [facility].; [place] [facility]. 12-17-2020 09:50-0500 Body surface area Derived from formula 1.97 m2 Neilee L Vess BLOOD BANK CREDIT CLERK [facility] [facility], [facility].; [employer] [facility]. 12-17-2020 09:50-0500 Body temperature 97.9 [degF] Neilee L Vess BLOOD BANK CREDIT CLERK [place] [facility], [facility].; [employer] [facility]. 12-17-2020 09:50-0500 Body weight 86.18 kg Neilee L Vess BLOOD BANK CREDIT CLERK [facility].; [employer] [facility]. 12-17-2020 09:50-0500 Diastolic blood pressure 93 mm[Hg] Neilee L Vess BLOOD BANK CREDIT CLERK [facility].; [employer] [facility]. 12-17-2020 09:50-0500 Heart rate 85 /min Neilee L Vess BLOOD BANK CREDIT CLERK [facility].; [employer] [facility]. 12-17-2020 09:50-0500 Systolic blood pressure 157 mm[Hg] Neilee L Vess BLOOD BANK CREDIT CLERK [facility].; [employer] [facility]. 09-18-2020 09:22-0500 Body height 168.91 cm [facility]olanda Javed [facility].; [employer]. 09-18-2020 09:22-0500 Body mass index (BMI) [Ratio] 29.25 kg/m2 Yolanda Javed [facility], [facility].; [employer]. 09-18-2020 09:22-0500 Body surface area Derived from formula 1.94 m2 Yolanda Javed BLOOD BANK CREDIT CLERK [facility].; [employer] [facility]. 09-18-2020 09:22-0500 Body temperature 98.7 [degF] Yolanda Yanach BLOOD BANK CREDIT CLERK [employer] [facility].; [employer]. 09-18-2020 09:22-0500 Body weight 83.46 kg Yolanda Javed BLOOD BANK CREDIT CLERK [employer] [facility].; [employer]. 09-18-2020 09:22-0500 Diastolic blood pressure 87 mm[Hg] Yolanda Yanach [facility].; [employer]. 09-18-2020 09:22-0500 Heart rate 96 /min Yolanda Juan Miguel Javed LPN [facility], [facility].; [employer] [facility]. 09-18-2020 09:22-0500 Inhaled oxygen concentration 20 % Yolanda M Tegan ZABALA [facility], [facility].; [place] [facility], [facility]. 09-18-2020 09:22-0500 Inhaled oxygen concentration 21 % Yolanda M Tegan ZABALA [facility], Inc.; [place] [facility], [facility]. 09-18-2020 09:22-0500 SaO2% (BldA) [Mass fraction] 100 % Yolanda M Tegan ZABALA [facility], [facility].; [employer] [facility], [facility]. 09-18-2020 09:22-0500 Systolic blood pressure 136 mm[Hg] Yolanda Juan Miguel Javed LPN [facility], [facility].; [employer] 09-12-2020 14:07-0500 Body height 168.91 cm Valerie Snow LPN [facility], [facility].; [facility] [facility], [facility]. 09-12-2020 14:07-0500 Body mass index (BMI) [Ratio] 28.62 kg/m2 Valerie Snow LPN [facility], [facility].; [employer] [facility]. 09-12-2020 14:07-0500 Body surface area Derived from formula 1.92 m2 Valerie Snow LPN [facility], [facility].; [employer] [facility], [facility]. 09-12-2020 14:07-0500 Body weight 81.65 kg Valerie Snow LPN [facility], [facility].; [facility], [facility]. 09-12-2020 14:07-0500 Diastolic blood pressure 84 mm[Hg] Valerie Snow LPN [place] [facility], [facility].; [employer], [employer]. 09-12-2020 14:07-0500 Heart rate 87 /min Valerie Snow LPN [place] [facility], [facility].; [employer] [facility]. 09-12-2020 14:07-0500 Systolic blood pressure 127 mm[Hg] Valerie Snow LPN [place] [facility], [facility].; [employer] [facility]. 06-12-2020 08:39-0400 Body height 168.91 cm Chely Goldberg LPN [facility], [facility].; [facility]. 06-12-2020 08:39-0400 Body mass index (BMI) [Ratio] 30.53 kg/m2 Chely Goldberg LPN [facility], [facility].; [facility], [facility]. 06-12-2020 08:39-0400 Body surface area Derived from formula 1.98 m2 Chely Goldberg LPN [facility], [facility].; [facility]. 06-12-2020 08:39-0400 Body weight 87.09 kg Chely Goldberg LPN [facility], [facility].; [facility]. 06-12-2020 08:39-0400 Diastolic blood pressure 76 mm[Hg] Chely Goldberg LPN [facility], [facility].; [facility], [facility]. 06-12-2020 08:39-0400 Heart rate 83 /min Chely Goldberg LPN [facility], [facility].; [facility]. 06-12-2020 08:39-0400 Systolic blood pressure 136 mm[Hg] Chely Goldberg LPN [facility].; [facility]. 03-12-2020 14:54-0400 Body height 168.91 cm Neilee L Vess BLOOD BANK CREDIT CLERK [facility], [facility].; [place] [facility], [facility]. 03-12-2020 14:54-0400 Body mass index (BMI) [Ratio] 31.64 kg/m2 Neilee L Vess BLOOD BANK CREDIT CLERK [facility], [facility].; [place] [facility], [facility]. 03-12-2020 14:54-0400 Body surface area Derived from formula 2.01 m2 Neilee L Vess BLOOD BANK CREDIT CLERK [facility], [facility].; [facility], [facility]. 03-12-2020 14:54-0400 Body weight 90.27 kg Neilee L Vess BLOOD BANK CREDIT CLERK [facility], [facility].; [place] [facility], [facility]. 03-12-2020 14:54-0400 Diastolic blood pressure 74 mm[Hg] Neilee L Vess BLOOD BANK CREDIT CLERK [facility], [employer].; [employer] [facility]. 03-12-2020 14:54-0400 Heart rate 91 /min Neilee L Vess BLOOD BANK CREDIT CLERK [place] [facility] [employer]. 03-12-2020 14:54-0400 Systolic blood pressure 127 mm[Hg] Tex Wan LPN [facility] [employer]. 12-13-2019 14:45-0500 Body height 168.91 cm Violet Dawn RN [employer]. 12-13-2019 14:45-0500 Body mass index (BMI) [Ratio] 31.88 kg/m2 Violet Dawn RN [employer]. 12-13-2019 14:45-0500 Body surface area Derived from formula 2.01 m2 Violet Dawn RN [employer]. 12-13-2019 14:45-0500 Body temperature 98 [degF] Violet Dawn RN [employer]. 12-13-2019 14:45-0500 Body weight 90.95 kg Violet Dawn RN [employer]. 12-13-2019 14:45-0500 Diastolic blood pressure 76 mm[Hg] Violet Dawn RN [employer].; [employer]. 12-13-2019 14:45-0500 Heart rate 95 /min Violet Dawn RN [employer].; [employer]. 12-13-2019 14:45-0500 Systolic blood pressure 133 mm[Hg] Violet Dawn RN [employer].; [employer]. 09-06-2019 14:48-0400 Body height 168.91 cm Violet Dawn RN [employer].; [employer]. 09-06-2019 14:48-0400 Body mass index (BMI) [Ratio] 32.39 kg/m2 Violet Dawn RN [employer].; [employer]. 09-06-2019 14:48-0400 Body surface area Derived from formula 2.03 m2 Violet Dawn RN [employer].; [employer]. 09-06-2019 14:48-0400 Body temperature 98.2 [degF] Violet Dawn RN [employer].; [employer]. 09-06-2019 14:48-0400 Body weight 92.4 kg Violet Dawn RN [employer]. 09-06-2019 14:48-0400 Diastolic blood pressure 70 mm[Hg] Violet Dawn RN [employer].; [employer]. 09-06-2019 14:48-0400 Heart rate 87 /min Violet Dawn RN [employer].; [employer]. 09-06-2019 14:48-0400 Systolic blood pressure 125 mm[Hg] Violet Dawn RN [employer]. 06-06-2019 14:39-0400 Body height 168.91 cm Neilee L Vess BLOOD BANK CREDIT CLERK [employer]. 06-06-2019 14:39-0400 Body mass index (BMI) [Ratio] 32.27 kg/m2 Neilee L Vess BLOOD BANK CREDIT CLERK [employer].; [employer]. 06-06-2019 14:39-0400 Body surface area Derived from formula 2.02 m2 Neilee L Vess BLOOD BANK CREDIT CLERK [employer].; [employer]. 06-06-2019 14:39-0400 Body weight 92.08 kg Neilee L Vess BLOOD BANK CREDIT CLERK [employer].; [employer]. 06-06-2019 14:39-0400 Diastolic blood pressure 74 mm[Hg] Neilee L Vess BLOOD BANK CREDIT CLERK [employer]. 06-06-2019 14:39-0400 Heart rate 90 /min Neilee L Vess BLOOD BANK CREDIT CLERK [employer].; [employer]. 06-06-2019 14:39-0400 Systolic blood pressure 122 mm[Hg] Neilee L Vess BLOOD BANK CREDIT CLERK [employer].; [employer]. 03-07-2019 10:55-0400 Body height 168.91 cm Neilee L Vess BLOOD BANK CREDIT CLERK [employer]. 03-07-2019 10:55-0400 Body mass index (BMI) [Ratio] 32.91 kg/m2 Neilee L Vess BLOOD BANK CREDIT CLERK [employer] 03-07-2019 10:55-0400 Body surface area Derived from formula 2.04 m2 Neilee L Vess BLOOD BANK CREDIT CLERK [employer]. 03-07-2019 10:55-0400 Body weight 93.9 kg Neilee L Vess BLOOD BANK CREDIT CLERK [employer].; [employer]. 03-07-2019 10:55-0400 Diastolic blood pressure 74 mm[Hg] Neilee L Vess BLOOD BANK CREDIT CLERK [employer]. 03-07-2019 10:55-0400 Heart rate 86 /min Neilee L Vess BLOOD BANK CREDIT CLERK [employer]. 03-07-2019 10:55-0400 Systolic blood pressure 128 mm[Hg] Neilee L Vess BLOOD BANK CREDIT CLERK [employer].; [employer]. 01-18-2019 09:59-0400 Body height 168.91 cm Violet Dawn RN [employer]. 01-18-2019 09:59-0400 Body mass index (BMI) [Ratio] 32.46 kg/m2 Violet Dawn RN [employer]. 01-18-2019 09:59-0400 Body surface area Derived from formula 2.03 m2 Violet Dawn RN [employer].; [employer]. 01-18-2019 09:59-0400 Body temperature 97.5 [degF] Violet Dawn RN [employer].; [employer]. 01-18-2019 09:59-0400 Body weight 92.63 kg Violet Dawn RN [employer].; [employer]. 01-18-2019 09:59-0400 Diastolic blood pressure 89 mm[Hg] Violet Dawn RN [employer] 01-18-2019 09:59-0400 Heart rate 92 /min Violet Dawn RN [employer] 01-18-2019 09:59-0400 Systolic blood pressure 153 mm[Hg] Violet Dawn RN [employer] 11-16-2018 12:07-0500 Body height 168.91 cm Damari Denny [employer] PA-C Work Phone: [employer]. 11-16-2018 12:07-0500 Body mass index (BMI) [Ratio] 31.51 kg/m2 [employer] PA-C Work Phone: [employer]. 11-16-2018 12:07-0500 Body surface area Derived from formula 2 m2 [employer] PA-C Work Phone: [employer]. 11-16-2018 12:07-0500 Body temperature 98.6 [degF] [employer] PA-C Work Phone: [employer].; [employer] 11-16-2018 12:07-0500 Body weight 89.9 kg Damari Denny [employer] PA-C Work Phone: [employer].; [employer] 11-16-2018 12:07-0500 Diastolic blood pressure 92 mm[Hg] Damari Denny [employer] PA-C Work Phone: [employer].; [employer] 11-16-2018 12:07-0500 Heart rate 111 /min Damari Denny [employer] PA-C Work Phone: [employer]. 11-16-2018 12:07-0500 Systolic blood pressure 147 mm[Hg] Damari Henson PA-C Work Phone: [employer].; [employer]. 08-18-2018 14:59-0400 Body height 168.91 cm Violet Dawn RN [employer]. 08-18-2018 14:59-0400 Body mass index (BMI) [Ratio] 31.43 kg/m2 Violet Dawn RN [employer]. 08-18-2018 14:59-0400 Body surface area Derived from formula 2 m2 Violet Dawn RN [employer].; [employer]. 08-18-2018 14:59-0400 Body temperature 98.1 [degF] Violet Dawn RN [employer].; [employer]. 08-18-2018 14:59-0400 Body weight 89.68 kg Violet Dawn RN [employer].; [employer]. 08-18-2018 14:59-0400 Diastolic blood pressure 85 mm[Hg] Violet Dawn RN [employer].; [employer]. 08-18-2018 14:59-0400 Heart rate 87 /min Violet Dawn RN [employer].; [employer]. 08-18-2018 14:59-0400 Systolic blood pressure 140 mm[Hg] Violet Dawn RN [employer].; [employer]. 05-09-2018 13:22-0400 Body height 168.91 cm Violet Dawn RN [employer].; [employer]. 05-09-2018 13:22-0400 Body mass index (BMI) [Ratio] 30.3 kg/m2 Violet Dawn RN [employer].; [employer]. 05-09-2018 13:22-0400 Body surface area Derived from formula 1.97 m2 Violet Dawn RN [employer].; [employer]. 05-09-2018 13:22-0400 Body temperature 98.7 [degF] Violet Dawn RN [employer] 05-09-2018 13:22-0400 Body weight 86.46 kg Violet Dawn RN [employer] 05-09-2018 13:22-0400 Diastolic blood pressure 83 mm[Hg] Violet Dawn RN [employer] 05-09-2018 13:22-0400 Heart rate 110 /min Violet Dawn RN [employer] 05-09-2018 13:22-0400 Systolic blood pressure 136 mm[Hg] Violet Dawn RN [employer].; [employer]. 02-09-2018 15:090400 Body height 168.91 cm Violet Dawn RN [employer]. 02-09-2018 15:09-0400 Body mass index (BMI) [Ratio] 31.46 kg/m2 Violet Dawn RN [employer].; [employer]. 02-09-2018 15:09-0400 Body surface area Derived from formula 2 m2 Violet Dawn RN [employer].; [employer]. 02-09-2018 15:090400 Body temperature 98.5 [degF] Violet Dawn RN [employer].; [employer]. 02-09-2018 15:090400 Body weight 89.77 kg Violet Dawn RN [employer].; [employer]. 02-09-2018 15:09-0400 Diastolic blood pressure 81 mm[Hg] Violet Dawn RN [employer].; [employer]. 02-09-2018 15:09-0400 Heart rate 85 /min Violet Dawn RN [employer].; [employer]. 02-09-2018 15:09-0400 Systolic blood pressure 135 mm[Hg] Violet Dawn RN [employer].; [employer]. 11-11-2017 15:19-0500 Body height 168.91 cm Violet Danw RN [employer]. 11-11-2017 15:19-0500 Body mass index (BMI) [Ratio] 29.59 kg/m2 Violet Dawn RN [employer].; [employer]. 11-11-2017 15:19-0500 Body surface area Derived from formula 1.95 m2 Violet Dawn RN [employer].; [employer]. 11-11-2017 15:19-0500 Body temperature 98.2 [degF] Violet Dawn RN [employer].; [employer]. 11-11-2017 15:19-0500 Body weight 84.41 kg Violet Dawn RN [employer].; [employer]. 11-11-2017 15:19-0500 Diastolic blood pressure 87 mm[Hg] Violet Dawn RN [employer].; [employer]. 11-11-2017 15:19-0500 Heart rate 93 /min Violet Dawn RN [employer].; [employer]. 11-11-2017 15:19-0500 Systolic blood pressure 129 mm[Hg] Violet Dawn RN [employer].; [employer]. 08-12-2017 11:33-0400 Body height 168.91 cm Violet Dawn RN [employer]. 08-12-2017 11:33-0400 Body mass index (BMI) [Ratio] 31.05 kg/m2 Violet Dawn RN [employer].; [employer]. 08-12-2017 11:33-0400 Body surface area Derived from formula 1.99 m2 Violet Dawn RN [employer].; [employer]. 08-12-2017 11:33-0400 Body temperature 97.9 [degF] Violet Dawn RN [employer].; [employer]. 08-12-2017 11:33-0400 Body weight 88.59 kg Violet [facility] [employer]. 08-12-2017 11:33-0400 Diastolic blood pressure 79 mm[Hg] Violet Dawn RN [facility], [facility].; [employer] 08-12-2017 11:33-0400 Heart rate 81 /min Violet Dawn RN [place] [facility], [facility] [employer] 08-12-2017 11:33-0400 Systolic blood pressure 118 mm[Hg] Violet Dawn RN [place] [facility], ALTHIA.; [employer]. 06-10-2017 07:29-0400 BMI (Body Mass Index) 33.84 kg/m2 Cristobal Ewing [facility] Work Phone: 06-10-2017 07:29-0400 Body Temperature 97.7 [degF] Cristobal [facility] ter [facility] Work Phone: 06-10-2017 07:29-0400 BP Diastolic 86 mm[Hg] Cristobal Ewing [facility] Work Phone: 06-10-2017 07:29-0400 BP Systolic 137 mm[Hg] Cristobal [facility] er [facility] Work Phone: 06-10-2017 07:29-0400 Height 165.1 cm [facility] Work Phone: 06-10-2017 07:29-0400 Pulse (Heart Rate) 77 /min Cristobal [facility] enter [facility] Work Phone: 06-10-2017 07:29-0400 Respiratory Rate 20 /min [facility] ter [facility] Work Phone: 06-10-2017 07:29-0400 Weight 92.26 kg Cristobal [facility] Work Phone: 05-17-2017 14:59-0400 Body height 168.91 cm Violet Dawn RN [employer]. 05-17-2017 14:59-0400 Body mass index (BMI) [Ratio] 32.89 kg/m2 Violet Dawn RN [employer]. 05-17-2017 14:59-0400 Body surface area Derived from formula 2.04 m2 Violet Dawn RN [employer].; [employer]. 05-17-2017 14:59-0400 Body temperature 98.5 [degF] Violet Dawn RN [employer].; [employer]. 05-17-2017 14:59-0400 Body weight 93.85 kg Violet Dawn RN [employer].; [employer]. 05-17-2017 14:59-0400 Diastolic blood pressure 73 mm[Hg] Violet Dawn RN [employer].; [employer]. 05-17-2017 14:59-0400 Heart rate 84 /min Violet Dawn RN [employer]. 05-17-2017 14:59-0400 Systolic blood pressure 120 mm[Hg] Violet Dawn RN [employer].; [employer]. 04-07-2017 10:40-0400 Body height 168.91 cm Violet Dawn RN [employer].; [employer]. 04-07-2017 10:40-0400 Body mass index (BMI) [Ratio] 31.73 kg/m2 Violet Dawn RN [employer].; [employer]. 04-07-2017 10:40-0400 Body surface area Derived from formula 2.01 m2 Violet Dawn RN [employer].; [employer]. 04-07-2017 10:40-0400 Body temperature 98.5 [degF] Violet Dawn RN [employer].; [employer]. 04-07-2017 10:40-0400 Body weight 90.54 kg Violet Dawn RN [employer].; [employer]. 04-07-2017 10:40-0400 Diastolic blood pressure 84 mm[Hg] Violet Dawn RN [employer].; [employer]. 04-07-2017 10:40-0400 Heart rate 91 /min Violet Dawn RN [employer].; [employer]. 04-07-2017 10:40-0400 Systolic blood pressure 152 mm[Hg] Violet Dawn RN [employer]. 02-15-2017 15:05-0400 Body height 168.91 cm Violet Dawn RN [employer].; [employer]. 02-15-2017 15:05-0400 Body mass index (BMI) [Ratio] 33.12 kg/m2 Violet Dawn RN [employer]. 02-15-2017 15:05-0400 Body surface area Derived from formula 2.05 m2 Violet Dawn RN [employer]. 02-15-2017 15:05-0400 Body temperature 98.7 [degF] Violet Dawn RN [employer].; [employer]. 02-15-2017 15:05-0400 Body weight 94.48 kg Violet Dawn RN [employer].; [employer]. 02-15-2017 15:05-0400 Diastolic blood pressure 77 mm[Hg] Violet Dawn RN [employer]. 02-15-2017 15:05-0400 Heart rate 75 /min Violet Dawn RN [employer].; [employer]. 02-15-2017 15:05-0400 Systolic blood pressure 124 mm[Hg] Violet Dawn RN [employer].; [employer]. 08-13-2016 15:24-0400 Body height 168.91 cm Violet Dawn RN [employer].; [employer]. 08-13-2016 15:24-0400 Body mass index (BMI) [Ratio] 33.39 kg/m2 Violet Dawn RN [employer] 08-13-2016 15:24-0400 Body surface area Derived from formula 2.05 m2 Violet Dawn RN [employer] 08-13-2016 15:24-0400 Body temperature 98.2 [degF] Violet Dawn RN [employer] 08-13-2016 15:24-0400 Body weight 95.26 kg Violet Dawn RN [employer].; [employer], [place]. 08-13-2016 15:24-0400 Diastolic blood pressure 77 mm[Hg] Violet Dawn RN [employer].; [employer] 08-13-2016 15:24-0400 Heart rate 83 /min Violet Dawn RN [employer].; [employer] 08-13-2016 15:24-0400 Systolic blood pressure 125 mm[Hg] Violet Dawn RN [employer].; [employer] 06-01-2016 09:38-0400 Height 165.1 cm Cristobal Ewing [facility] er [facility] Work Phone: 05-13-2016 11:57-0400 Body height 168.91 cm Violet Dawn RN [employer].; [employer] 05-13-2016 11:57-0400 Body mass index (BMI) [Ratio] 34.01 kg/m2 Violet Dawn RN [employer].; [employer] 05-13-2016 11:57-0400 Body surface area Derived from formula 2.07 m2 Violet Dawn RN [employer].; [employer] 05-13-2016 11:57-0400 Body temperature 98.6 [degF] Violet Dawn RN [employer].; [employer]. 05-13-2016 11:57-0400 Body weight 97.03 kg Violet Dawn RN [employer].; [employer]. 05-13-2016 11:57-0400 Diastolic blood pressure 91 mm[Hg] Violet Dawn RN [facility] [employer] 05-13-2016 11:57-0400 Heart rate 83 /min Violet Dawn RN [facility].; [employer]. 05-13-2016 11:57-0400 Systolic blood pressure 141 mm[Hg] Violet Dawn RN [place] [facility] [employer] 03-20-2016 08:47-0400 Body height 168.91 cm Damari Tijerina RN [facility] [employer]. 03-20-2016 08:47-0400 Body mass index (BMI) [Ratio] 33.7 kg/m2 Damari Tijerina RN [place] [employer]. 03-20-2016 08:47-0400 Body surface area Derived from formula 2.06 m2 Damari Tijerina RN [facility] [employer]. 03-20-2016 08:47-0400 Body weight 96.16 kg Damari Tijerina RN [employer] 03-20-2016 08:47-0400 Diastolic blood pressure 91 mm[Hg] Damari Tijerina RN [employer].; [employer] 03-20-2016 08:47-0400 Heart rate 71 /min Damari Tijerina RN [place] [employer]. 03-20-2016 08:47-0400 Systolic blood pressure 158 mm[Hg] Damari Tijerina RN [employer]. 10-29-2015 14:59-0500 Body height 168.91 cm Jhon Capone PA-C Work Phone: [employer]. 10-29-2015 14:59-0500 Body mass index (BMI) [Ratio] 33.7 kg/m2 Jhon Capone PA-C Work Phone: [employer].; [employer] 10-29-2015 14:59-0500 Body surface area Derived from formula 2.06 m2 Jhon Capone PA-C Work Phone: [employer].; [employer] 10-29-2015 14:59-0500 Body weight 96.16 kg Jhon Capone PA-C Work Phone: [employer].; [employer] 10-29-2015 14:59-0500 Diastolic blood pressure 68 mm[Hg] Jhon Capone PA-C Work Phone: [employer] 10-29-2015 14:59-0500 Heart rate 74 /min Jhon Capone PA-C Work Phone: [employer] 10-29-2015 14:59-0500 Systolic blood pressure 112 mm[Hg] Jhon Capone PA-C Work Phone: [employer].; [employer] 10-09-2015 17:16-0500 Body height 168.91 cm Violet Dawn RN [employer]. 10-09-2015 17:16-0500 Body mass index (BMI) [Ratio] 34.34 kg/m2 Violet Dawn RN [employer].; [employer]. 10-09-2015 17:16-0500 Body surface area Derived from formula 2.08 m2 Violet Dawn RN [employer]. 10-09-2015 17:16-0500 Body temperature 97.9 [degF] Violet Dawn RN [employer].; [employer]. 10-09-2015 17:16-0500 Body weight 97.98 kg Violet Dawn RN [employer].; [employer]. 10-09-2015 17:16-0500 Diastolic blood pressure 68 mm[Hg] Violet Dawn RN [employer]. 10-09-2015 17:16-0500 Heart rate 71 /min Violet Dawn RN [employer]. 10-09-2015 17:16-0500 Systolic blood pressure 117 mm[Hg] Violet Dawn RN [employer]. 08-07-2015 15:59-0400 Body height 168.91 cm Violet Dawn RN [employer]. 08-07-2015 15:59-0400 Body mass index (BMI) [Ratio] 34.34 kg/m2 Violet Dawn RN [employer].; [employer]. 08-07-2015 15:59-0400 Body surface area Derived from formula 2.08 m2 Violet Dawn RN [employer]. 08-07-2015 15:59-0400 Body temperature 98 [degF] Violet Dawn RN [employer]. 08-07-2015 15:59-0400 Body weight 97.98 kg Violet Dawn RN [employer]. 08-07-2015 15:59-0400 Diastolic blood pressure 69 mm[Hg] Violet Dawn RN [employer]. 08-07-2015 15:59-0400 Heart rate 80 /min Violet Dawn RN [employer]. 08-07-2015 15:59-0400 Systolic blood pressure 136 mm[Hg] Violet Dawn RN [employer]. 07-23-2015 16:40-0400 Body height 168.91 cm Damari Tijerina RN [employer]. 07-23-2015 16:40-0400 Body mass index (BMI) [Ratio] 33.86 kg/m2 Damari Tijerina RN [facility].; [employer]. 07-23-2015 16:40-0400 Body surface area Derived from formula 2.07 m2 Damari Tijerina RN [facility].; [employer]. 07-23-2015 16:40-0400 Body temperature 98.7 [degF] Damari Tijerina RN [facility].; [employer]. 07-23-2015 16:40-0400 Body weight 96.62 kg Damari Tijerina RN [facility].; [employer]. 07-23-2015 16:40-0400 Diastolic blood pressure 81 mm[Hg] Damari Tijerina RN [facility].; [employer]. 07-23-2015 16:40-0400 Heart rate 85 /min Damari Tijerina RN [facility].; [employer]. 07-23-2015 16:40-0400 Systolic blood pressure 123 mm[Hg] Damari Tijerina RN [facility].; [employer]. 07-08-2015 13:08-0400 Body height 152.4 cm Violet Dawn RN [facility].; [employer]. 07-08-2015 13:08-0400 Body mass index (BMI) [Ratio] 42.57 kg/m2 Violet aDwn RN [facility].; [employer] 07-08-2015 13:08-0400 Body surface area Derived from formula 1.94 m2 Violet Dawn RN [employer]. 07-08-2015 13:08-0400 Body temperature 97.6 [degF] Violet Dawn RN [employer]. 07-08-2015 13:08-0400 Body weight 98.88 kg Violet Dawn RN [employer]. 07-08-2015 13:08-0400 Diastolic blood pressure 92 mm[Hg] Violet Dawn RN [employer] [facility].; [employer]. 07-08-2015 13:08-0400 Heart rate 78 /min Violet Dawn RN [place] [facility].; [employer]. 07-08-2015 13:08-0400 Systolic blood pressure 143 mm[Hg] Violet Dawn RN [place] [facility].; [employer]. 07-03-2015 17:21-0400 Body height 152.4 cm Violet Danw RN [place] [employer] [facility].; [employer]. 07-03-2015 17:21-0400 Body mass index (BMI) [Ratio] 43.16 kg/m2 Violet Dawn RN [place] [facility] [employer] 07-03-2015 17:21-0400 Body surface area Derived from formula 1.95 m2 Violet Dawn RN [place] [facility] [employer]. 07-03-2015 17:21-0400 Body temperature 98 [degF] Violet Dawn RN [place] [employer] [facility].; [employer]. 07-03-2015 17:21-0400 Body weight 100.25 kg Violet Dawn RN [employer]. 07-03-2015 17:21-0400 Diastolic blood pressure 81 mm[Hg] Violet Dawn RN [place] [employer]. 07-03-2015 17:21-0400 Heart rate 74 /min Violet Dawn RN [place] [employer]. 07-03-2015 17:21-0400 Systolic blood pressure 124 mm[Hg] Violet Dawn RN [employer]. 06-28-2015 16:05-0400 Body height 167.64 cm Damari Tijerina RN [employer]. 06-28-2015 16:05-0400 Body mass index (BMI) [Ratio] 35.51 kg/m2 Damari Tijerina RN [employer] 06-28-2015 16:05-0400 Body surface area Derived from formula 2.08 m2 Damari Tijerina RN [employer]. 06-28-2015 16:05-0400 Body temperature 98.3 [degF] Damari Tijerina RN [employer].; [employer]. 06-28-2015 16:05-0400 Body weight 99.79 kg Damari Tijerina RN [employer].; [employer]. 06-28-2015 16:05-0400 Diastolic blood pressure 77 mm[Hg] Damari Tijerina RN [employer].; [employer]. 06-28-2015 16:05-0400 Heart rate 87 /min Damari Tijerina RN [employer].; [employer]. 06-28-2015 16:05-0400 Inhaled oxygen concentration 20 % Damari Tijerina RN [employer].; [employer]. 06-28-2015 16:05-0400 Inhaled oxygen concentration 21 % Damari Tijerina RN [employer]. 06-28-2015 16:05-0400 SaO2% (BldA) [Mass fraction] 98 % Damari Tijerina RN [employer].; [employer]. 06-28-2015 16:05-0400 Systolic blood pressure 145 mm[Hg] Damari Tijerina RN [employer]. 05-14-2015 14:47-0400 Body height 167.64 cm Naa Valladares LPN [employer]. 05-14-2015 14:47-0400 Body mass index (BMI) [Ratio] 35.51 kg/m2 Naa Valladares LPN [employer]. 05-14-2015 14:47-0400 Body surface area Derived from formula 2.08 m2 Naa Valladares LPN [employer] 05-14-2015 14:47-0400 Body weight 99.79 kg Naa Blaine ZABALA [employer] [place], [facility].; [employer] 05-14-2015 14:47-0400 Diastolic blood pressure 81 mm[Hg] Naa Valladares LPN [employer] 05-14-2015 14:47-0400 Heart rate 77 /min Naa Valladares LPN [employer] 05-14-2015 14:47-0400 Systolic blood pressure 131 mm[Hg] Naa Valladares LPN [employer] 02-27-2015 17:06-0400 Body height 167.64 cm Violet Dawn RN [employer] 02-27-2015 17:06-0400 Body mass index (BMI) [Ratio] 35.51 kg/m2 Violet Dawn RN [employer].; [employer], ALTH[place]. 02-27-2015 17:06-0400 Body surface area Derived from formula 2.08 m2 Violet Dawn RN [employer] 02-27-2015 17:06-0400 Body temperature 97.7 [degF] Violet Dawn RN [employer] 02-27-2015 17:06-0400 Body weight 99.79 kg Violet Dawn RN [employer] 02-27-2015 17:06-0400 Diastolic blood pressure 77 mm[Hg] Violet Dawn RN [employer], ALTHIA. 02-27-2015 17:06-0400 Heart rate 77 /min Violet Dawn RN [employer], [place]TH[place]. 02-27-2015 17:06-0400 Systolic blood pressure 140 mm[Hg] Violet Dawn RN [employer]. 01-31-2015 16:00-0400 Body height 167.64 cm Violet Dawn RN [place] [facility] [employer]. 01-31-2015 16:00-0400 Body mass index (BMI) [Ratio] 35.02 kg/m2 Voilet Dawn RN [place] [facility] [employer]. 01-31-2015 16:00-0400 Body surface area Derived from formula 2.07 m2 Violet Dawn RN [place] [employer]. 01-31-2015 16:00-0400 Body temperature 97.8 [degF] Violet Dawn RN [employer]. 01-31-2015 16:00-0400 Body weight 98.43 kg Violet Dawn RN [employer]. 01-31-2015 16:00-0400 Diastolic blood pressure 90 mm[Hg] Violet Dawn RN [place] [facility] [employer] 01-31-2015 16:00-0400 Heart rate 80 /min Violet Dawn RN [facility] [employer]. 01-31-2015 16:00-0400 Systolic blood pressure 136 mm[Hg] Violet Dawn RN [employer], ALTHIA. 01-16-2015 10:43-0400 Body height 167.64 cm Naa Valladares LPN [employer]. 01-16-2015 10:43-0400 Body mass index (BMI) [Ratio] 35.35 kg/m2 Naa Valladares LPN [employer]. 01-16-2015 10:43-0400 Body surface area Derived from formula 2.08 m2 Naa Valladares LPN [employer]. 01-16-2015 10:43-0400 Body temperature 98.4 [degF] Naa Valladares LPN [employer].; [employer]. 01-16-2015 10:43-0400 Body weight 99.34 kg Naa Escalantemarizol ZABALA [place] [facility], [facility].; [employer]. 01-16-2015 10:43-0400 Diastolic blood pressure 86 mm[Hg] Naa Wemarizol ZABALA [place] [employer].; [employer]. 01-16-2015 10:43-0400 Heart rate 70 /min Naa Valladares [facility] [employer]. 01-16-2015 10:43-0400 Inhaled oxygen concentration 20 % Naa Borismarizol [facility] [employer] [employer] [employer]. 01-16-2015 10:43-0400 Inhaled oxygen concentration 21 % Naa Valladares [facility] [employer]. 01-16-2015 10:43-0400 SaO2% (BldA) [Mass fraction] 98 % Naa Wemarizol [facility] [employer] [facility].; [employer]. 01-16-2015 10:43-0400 Systolic blood pressure 154 mm[Hg] Naa Wemarizol BLOOD BANK CREDIT CLERK [employer], ALTHIA.; [employer], ALTHIA. 11-20-2014 09:36-0500 Body temperature 97.9 [degF] Sylviailee L Vess BLOOD BANK CREDIT CLERK [facility] [employer] [facility].; [employer]. 11-20-2014 09:36-0500 Body weight 97.98 kg Neilee L Vess BLOOD BANK CREDIT CLERK [employer] [facility].; [employer]. 11-20-2014 09:36-0500 Diastolic blood pressure 81 mm[Hg] Neilee L Vess BLOOD BANK CREDIT CLERK [employer], ALTHIA. 11-20-2014 09:36-0500 Heart rate 76 /min Sylviailee L Vess BLOOD BANK CREDIT CLERK [employer]. 11-20-2014 09:36-0500 Inhaled oxygen concentration 20 % Neilee L Vess BLOOD BANK CREDIT CLERK [employer]. 11-20-2014 09:36-0500 Inhaled oxygen concentration 21 % Tex Crawford [employer].; [employer]. 11-20-2014 09:36-0500 SaO2% (BldA) [Mass fraction] 99 % Gogoe Yvette Wan BLOOD BANK CREDIT CLERK [employer].; [employer]. 11-20-2014 09:36-0500 Systolic blood pressure 135 mm[Hg] Tex Wan LPN [employer].; [employer]. 11-15-2014 11:22-0500 Body height 167.64 cm Violet Dawn RN [employer].; [employer]. 11-15-2014 11:22-0500 Body mass index (BMI) [Ratio] 34.06 kg/m2 Violet Dawn RN [employer].; [employer]. 11-15-2014 11:22-0500 Body surface area Derived from formula 2.05 m2 Violet Dawn RN [employer].; [employer]. 11-15-2014 11:22-0500 Body temperature 98 [degF] Violet Dawn RN [employer].; [employer]. 11-15-2014 11:22-0500 Body weight 95.71 kg Violet Dawn RN [employer].; [employer]. 11-15-2014 11:22-0500 Diastolic blood pressure 85 mm[Hg] Violet Dawn RN [employer].; [employer]. 11-15-2014 11:22-0500 Heart rate 88 /min Violet Dawn RN [employer].; [employer]. 11-15-2014 11:22-0500 Systolic blood pressure 126 mm[Hg] Violet Dawn RN [employer].; [employer]. 09-26-2014 15:27-0500 Body height 167.64 cm Violet Dawn RN [employer].; [employer]. 09-26-2014 15:27-0500 Body mass index (BMI) [Ratio] 35.11 kg/m2 Violet Dawn RN [employer].; [employer]. 09-26-2014 15:27-0500 Body surface area Derived from formula 2.07 m2 Violet Dawn RN [facility] [employer]. 09-26-2014 15:27-0500 Body temperature 97.5 [degF] Violet Dawn RN [employer].; [employer]. 09-26-2014 15:27-0500 Body weight 98.66 kg Violet Dawn RN [employer].; [employer]. 09-26-2014 15:27-0500 Diastolic blood pressure 78 mm[Hg] Violet Dawn RN [facility] [employer]. 09-26-2014 15:27-0500 Heart rate 78 /min Violet Dawn RN [employer] [employer]. 09-26-2014 15:27-0500 Systolic blood pressure 132 mm[Hg] Violet Dawn RN [employer].; [employer]. 08-27-2014 15:0400 Body height 167.64 cm Violet Dawn RN [employer].; [employer]. 08-27-2014 15:01-0400 Body mass index (BMI) [Ratio] 34.94 kg/m2 Violet Dawn RN [employer].; [employer]. 08-27-2014 15:01-0400 Body surface area Derived from formula 2.07 m2 Violet Dawn RN [employer].; [employer]. 08-27-2014 15:0400 Body weight 98.2 kg Violet Dawn RN [employer].; [employer]. 08-27-2014 15:0400 Diastolic blood pressure 93 mm[Hg] Violet Dawn RN [employer].; [employer]. 08-27-2014 15:0400 Heart rate 76 /min Violet Dawn RN [employer].; [employer]. 08-27-2014 15:01-0400 Systolic blood pressure 146 mm[Hg] Violet Dawn RN [place] [facility] [employer]. 05-24-2014 14:34-0400 Body height 167.64 cm Violet Dawn RN [place] [facility].; [employer]. 05-24-2014 14:34-0400 Body mass index (BMI) [Ratio] 35.15 kg/m2 Violet Dawn RN [place] [facility].; [employer]. 05-24-2014 14:34-0400 Body surface area Derived from formula 2.07 m2 Violet Dawn RN [place] [facility] [employer]. 05-24-2014 14:34-0400 Body weight 98.79 kg Violet Dawn RN [place] [employer]. 05-24-2014 14:34-0400 Diastolic blood pressure 90 mm[Hg] Violet Dawn RN [place] [facility] [employer]. 05-24-2014 14:34-0400 Heart rate 78 /min Violet Dawn RN [place] [facility] [employer]. 05-24-2014 14:34-0400 Systolic blood pressure 132 mm[Hg] Violet Dawn RN [employer].; [employer]. 04-24-2014 08:37-0400 Body temperature 96.7 [degF] Neilee L Vess BLOOD BANK CREDIT CLERK [employer].; [employer]. 04-24-2014 08:37-0400 Body weight 98.88 kg Neilee L Vess BLOOD BANK CREDIT CLERK [employer].; [employer]. 04-24-2014 08:37-0400 Diastolic blood pressure 85 mm[Hg] Neilee L Vess BLOOD BANK CREDIT CLERK [employer].; [employer]. 04-24-2014 08:37-0400 Heart rate 76 /min Neilee L Vess BLOOD BANK CREDIT CLERK [employer].; [employer]. 04-24-2014 08:37-0400 Systolic blood pressure 143 mm[Hg] Tex Wan LPN [place] [facility] [employer]. 03-16-2014 09:02-0400 Body height 168.91 cm Yolanda M Tegan ZABALA [place] [facility] [employer]. 03-16-2014 09:02-0400 Body mass index (BMI) [Ratio] 33.86 kg/m2 [facility]anda M Tegan [facility] [employer]. 03-16-2014 09:02-0400 Body surface area Derived from formula 2.07 m2 Yolanda M Tegan BLOOD BANK CREDIT CLERK [employer].; [employer]. 03-16-2014 09:02-0400 Body temperature 99.2 [degF] Yolanda M Tegan BLOOD BANK CREDIT CLERK [employer].; [employer]. 03-16-2014 09:02-0400 Body weight 96.62 kg Yolanda M Tegan BLOOD BANK CREDIT CLERK [employer].; [employer]. 03-16-2014 09:02-0400 Diastolic blood pressure 89 mm[Hg] Yolanda Bullard Tegan BLOOD BANK CREDIT CLERK [employer].; [employer]. 03-16-2014 09:02-0400 Heart rate 91 /min Yolanda Javed BLOOD BANK CREDIT CLERK [employer].; [employer]. 03-16-2014 09:02-0400 Systolic blood pressure 136 mm[Hg] Yolanda M Tegan ZABALA [employer].; [employer]. 02-28-2014 17:13-0400 Body height 168.91 cm Violet Dawn RN [employer].; [employer]. 02-28-2014 17:13-0400 Body mass index (BMI) [Ratio] 34.34 kg/m2 Violet Dawn RN [place] [employer]. 02-28-2014 17:13-0400 Body surface area Derived from formula 2.08 m2 Violet Dawn RN [place] [employer]. 02-28-2014 17:13-0400 Body temperature 98 [degF] Violet Dawn RN [employer].; [employer]. 02-28-2014 17:13-0400 Body weight 97.98 kg Violet Dawn RN [place] [employer] [facility].; [employer]. 02-28-2014 17:13-0400 Diastolic blood pressure 90 mm[Hg] Violet Dawn RN [facility] [employer]. 02-28-2014 17:13-0400 Heart rate 89 /min Violet Dawn RN [facility] [employer]. 02-28-2014 17:13-0400 Systolic blood pressure 147 mm[Hg] Violet Dawn RN [employer]. 08-30-2013 16:51-0400 Body height 168.91 cm Violet Dawn RN [facility] [employer]. 08-30-2013 16:51-0400 Body mass index (BMI) [Ratio] 33.96 kg/m2 Violet Dawn RN [employer] [employer]. 08-30-2013 16:51-0400 Body surface area Derived from formula 2.07 m2 Violet Dawn RN [employer]. 08-30-2013 16:51-0400 Body temperature 98.3 [degF] Violet Dawn RN [employer]. 08-30-2013 16:51-0400 Body weight 96.89 kg Violet Dawn RN [employer]. 08-30-2013 16:51-0400 Diastolic blood pressure 86 mm[Hg] Violet Dawn RN [employer].; [employer]. 08-30-2013 16:51-0400 Heart rate 80 /min Violet Dawn RN [employer].; [employer]. 08-30-2013 16:51-0400 Systolic blood pressure 134 mm[Hg] Violet Dawn RN [place] [facility].; [employer] [facility]. 06-07-2013 15:39-0400 Body height 168.91 cm Violet Dawn RN [place] [facility].; [employer]. 06-07-2013 15:39-0400 Body mass index (BMI) [Ratio] 33.78 kg/m2 Violet Dawn RN [facility].; [employer] 06-07-2013 15:39-0400 Body surface area Derived from formula 2.06 m2 Violet Dawn RN [place] [facility].; [employer]. 06-07-2013 15:39-0400 Body temperature 97.9 [degF] Violet Dawn RN [place] [facility] [employer]. 06-07-2013 15:39-0400 Body weight 96.39 kg Violet Dawn RN [place] [facility] [employer]. 06-07-2013 15:39-0400 Diastolic blood pressure 82 mm[Hg] Violet Dawn RN [place] [facility].; [employer]. 06-07-2013 15:39-0400 Heart rate 74 /min Violet Dawn RN [facility] [employer]. 06-07-2013 15:39-0400 Systolic blood pressure 136 mm[Hg] Violet Dawn RN [facility] [employer]. 04-26-2013 16:53-0400 Body height 168.91 cm Violet Dawn RN [place] [facility].; [employer]. 04-26-2013 16:53-0400 Body mass index (BMI) [Ratio] 35.06 kg/m2 Violet Dawn RN [facility] [employer]. 04-26-2013 16:53-0400 Body surface area Derived from formula 2.1 m2 Violet Dawn RN [facility] [employer]. 04-26-2013 16:53-0400 Body temperature 97.6 [degF] Violet Dawn RN [employer]. 04-26-2013 16:53-0400 Body weight 100.02 kg Violet Dawn RN [place] [facility].; [employer]. 04-26-2013 16:53-0400 Diastolic blood pressure 81 mm[Hg] Violet Dawn RN [place] [facility].; [employer]. 04-26-2013 16:53-0400 Heart rate 76 /min Violet Dawn RN [place] [facility].; [employer]. 04-26-2013 16:53-0400 Systolic blood pressure 137 mm[Hg] Violet Dawn RN [place] [facility] [employer]. 01-25-2013 17:17-0400 Body height 168.91 cm Violet Dawn RN [place] [facility].; [employer]. 01-25-2013 17:17-0400 Body mass index (BMI) [Ratio] 35.2 kg/m2 Violet Dawn RN [place] [facility] [employer]. 01-25-2013 17:17-0400 Body surface area Derived from formula 2.1 m2 Violet Dawn RN [facility] [employer]. 01-25-2013 17:17-0400 Body temperature 97.7 [degF] Violet Dawn RN [place] [employer]. 01-25-2013 17:17-0400 Body weight 100.43 kg Violet Dawn RN [place] [facility].; [employer]. 01-25-2013 17:17-0400 Diastolic blood pressure 70 mm[Hg] Violet Dawn RN [place] [employer]. 01-25-2013 17:17-0400 Heart rate 76 /min Violet Dawn RN [employer]. 01-25-2013 17:17-0400 Systolic blood pressure 131 mm[Hg] Violet Dawn RN [employer]. 11-21-2012 13:29-0500 Body height 168.91 cm Violet Dawn RN [facility] [employer]. 11-21-2012 13:29-0500 Body mass index (BMI) [Ratio] 34.5 kg/m2 Violet Dawn RN [employer]. 11-21-2012 13:29-0500 Body surface area Derived from formula 2.08 m2 Violet Dawn RN [facility].; [employer]. 11-21-2012 13:29-0500 Body temperature 97.4 [degF] Violet Dawn RN [employer]. 11-21-2012 13:29-0500 Body weight 98.43 kg Violet Dawn RN [employer] [employer]. 11-21-2012 13:29-0500 Diastolic blood pressure 83 mm[Hg] Violet Dawn RN [facility] [employer]. 11-21-2012 13:29-0500 Heart rate 84 /min Violet Dawn RN [employer]. 11-21-2012 13:29-0500 Systolic blood pressure 120 mm[Hg] Violet Dawn RN [facility].; [employer]. 10-26-2012 14:56-0500 Body height 168.91 cm Violet Dawn RN [facility] [employer]. 10-26-2012 14:56-0500 Body mass index (BMI) [Ratio] 35.61 kg/m2 Violet Dawn RN [employer]. 10-26-2012 14:56-0500 Body surface area Derived from formula 2.11 m2 Violet Dawn RN [employer].; [employer]. 10-26-2012 14:56-0500 Body weight 101.61 kg Violet Dawn RN [employer]. 10-26-2012 14:56-0500 Diastolic blood pressure 76 mm[Hg] Violet Dawn RN [employer]. 10-26-2012 14:56-0500 Heart rate 76 /min Violet Dawn RN [place] [facility] [employer]. 10-26-2012 14:56-0500 Systolic blood pressure 126 mm[Hg] Violet Dawn RN [place] [employer]. 10-19-2012 16:52-0500 Body height 168.91 cm Violet Dawn RN [place] [employer]. 10-19-2012 16:52-0500 Body mass index (BMI) [Ratio] 36.06 kg/m2 Violet Dawn RN [employer] [employer]. 10-19-2012 16:52-0500 Body surface area Derived from formula 2.12 m2 Violet Dawn RN [employer] [employer]. 10-19-2012 16:52-0500 Body temperature 97.7 [degF] Violet Dawn RN [employer]. 10-19-2012 16:52-0500 Body weight 102.88 kg Violet Dawn RN [employer]. 10-19-2012 16:52-0500 Diastolic blood pressure 71 mm[Hg] Violet Dawn RN [employer] [employer]. 10-19-2012 16:52-0500 Heart rate 77 /min Violet Dawn RN [employer] [employer]. 10-19-2012 16:52-0500 Systolic blood pressure 124 mm[Hg] Violet Dawn RN [employer]. 09-08-2012 15:24-0400 Body height 168.91 cm Violet Dawn RN [employer]. 09-08-2012 15:24-0400 Body mass index (BMI) [Ratio] 36.92 kg/m2 Violet Dawn RN [employer].; [employer]. 09-08-2012 15:24-0400 Body surface area Derived from formula 2.14 m2 Violet Dawn RN [place] [facility].; [facility] [employer] [facility]. 09-08-2012 15:24-0400 Body temperature 97.6 [degF] Violet Dawn RN [place] [employer] [facility].; [employer]. 09-08-2012 15:24-0400 Body weight 105.33 kg Violet Dawn RN [place] [facility].; [employer]. 09-08-2012 15:24-0400 Diastolic blood pressure 88 mm[Hg] Violet Dawn RN [place] [facility].; [employer] 09-08-2012 15:24-0400 Heart rate 80 /min Violet Dawn RN [place] [facility].; [employer] 09-08-2012 15:24-0400 Systolic blood pressure 149 mm[Hg] Violet Dawn RN [place] [employer]. 05-27-2012 13:36-0400 Body height 168.91 cm Pam Dykes RN Work Phone: [employer]. 05-27-2012 13:36-0400 Body mass index (BMI) [Ratio] 35.29 kg/m2 Pam Dykes RN Work Phone: [employer]. 05-27-2012 13:36-0400 Body surface area Derived from formula 2.1 m2 Pam Dykes RN Work Phone: [employer] 05-27-2012 13:36-0400 Body weight 100.7 kg Pam Dykes RN Work Phone: [employer] 05-27-2012 13:36-0400 Diastolic blood pressure 80 mm[Hg] Pam Dykes RN Work Phone: [employer]. 05-27-2012 13:36-0400 Heart rate 88 /min Pam Dykes RN Work Phone: [employer]. 05-27-2012 13:36-0400 Systolic blood pressure 118 mm[Hg] Pam Dykes RN Work Phone: [employer] 03-30-2012 13:12-0400 Body height 168.91 cm Violet Dawn RN [employer].; [employer]. 03-30-2012 13:12-0400 Body mass index (BMI) [Ratio] 35.01 kg/m2 Violet Dawn RN [employer].; [employer]. 03-30-2012 13:12-0400 Body surface area Derived from formula 2.1 m2 Violet Dawn RN [employer]. 03-30-2012 13:12-0400 Body temperature 97.9 [degF] Violet Dawn RN [employer]. 03-30-2012 13:12-0400 Body weight 99.88 kg Violet Dawn RN [employer]. 03-30-2012 13:12-0400 Diastolic blood pressure 78 mm[Hg] Violet Dawn RN [employer]. 03-30-2012 13:12-0400 Heart rate 90 /min Violet Dawn RN [employer].; [employer]. 03-30-2012 13:12-0400 Systolic blood pressure 132 mm[Hg] Violet Dawn RN [employer].; [employer]. 12-30-2011 16:52-0500 Body height 170.18 cm Violet Dawn RN [employer].; [employer]. 12-30-2011 16:52-0500 Body mass index (BMI) [Ratio] 33.39 kg/m2 Violet Dawn RN [employer].; [employer]. 12-30-2011 16:52-0500 Body surface area Derived from formula 2.08 m2 Violet Dawn RN [employer]. 12-30-2011 16:52-0500 Body temperature 97 [degF] Violet Dawn RN [employer]. 12-30-2011 16:52-0500 Body weight 96.71 kg Violet Dawn RN [employer].; [employer]. 12-30-2011 16:52-0500 Diastolic blood pressure 72 mm[Hg] Violet Dawn RN [employer].; [employer]. 12-30-2011 16:52-0500 Heart rate 79 /min Violet Dawn RN [place] [employer]. 12-30-2011 16:52-0500 Systolic blood pressure 118 mm[Hg] Violet Dawn RN [employer]. 12-22-2011 13:52-0500 Body height 170.18 cm Pam Dykes RN Work Phone: [employer]. 12-22-2011 13:52-0500 Body mass index (BMI) [Ratio] 33.05 kg/m2 Pam Dykes RN Work Phone: [employer].; [employer]. 12-22-2011 13:52-0500 Body surface area Derived from formula 2.07 m2 Pam Dykes RN Work Phone: [employer]. 12-22-2011 13:52-0500 Body weight 95.71 kg Pam Dykes RN Work Phone: [employer] 12-22-2011 13:52-0500 Diastolic blood pressure 78 mm[Hg] Pam Dykes RN Work Phone: [employer]. 12-22-2011 13:52-0500 Heart rate 90 /min Pam Dykes RN Work Phone: [place] [employer]. 12-22-2011 13:52-0500 Systolic blood pressure 123 mm[Hg] Pam Dykes RN Work Phone: [place] [employer] 11-19-2011 10:22-0500 Body height 170.18 cm Violet Dawn RN [place] [employer]. 11-19-2011 10:22-0500 Body mass index (BMI) [Ratio] 32.86 kg/m2 Violet Dawn RN [place] [facility] [employer]. 11-19-2011 10:22-0500 Body surface area Derived from formula 2.06 m2 Violet Dawn RN [place] [employer]. 11-19-2011 10:22-0500 Body temperature 97.8 [degF] Violet Dawn RN [place] [employer]. 11-19-2011 10:22-0500 Body weight 95.17 kg Violet Dawn RN [facility] [employer]. 11-19-2011 10:22-0500 Diastolic blood pressure 85 mm[Hg] Violet Dawn RN [place] [employer]. 11-19-2011 10:22-0500 Heart rate 80 /min Violet Dawn RN [facility] [employer]. 11-19-2011 10:22-0500 Systolic blood pressure 137 mm[Hg] Violet Dawn RN [employer]. 10-05-2011 10:04-0500 Body height 170.18 cm Violet Dawn RN [employer]. 10-05-2011 10:04-0500 Body mass index (BMI) [Ratio] 33.33 kg/m2 Violet Dawn RN [employer].; [employer] 10-05-2011 10:04-0500 Body surface area Derived from formula 2.08 m2 Violet Dawn RN [facility] [facility].; [employer] [facility]. 10-05-2011 10:04-0500 Body temperature 97.6 [degF] Violet Dawn RN [place] [employer] [facility].; [employer] 10-05-2011 10:04-0500 Body weight 96.53 kg Violet Dawn RN [employer] [facility].; [employer]. 10-05-2011 10:04-0500 Diastolic blood pressure 79 mm[Hg] Violet Dawn RN [employer] [facility].; [employer]. 10-05-2011 10:04-0500 Heart rate 93 /min Violet Dawn RN [employer]. 10-05-2011 10:04-0500 Systolic blood pressure 137 mm[Hg] Violet Dawn RN [employer] 08-27-2011 15:03-0400 Body height 170.18 cm [employer] Work Phone: [employer] 08-27-2011 15:03-0400 Body mass index (BMI) [Ratio] 34.97 kg/m2 [employer] Work Phone: [employer]. 08-27-2011 15:03-0400 Body surface area Derived from formula 2.12 m2 [employer] Work Phone: [employer]. 08-27-2011 15:03-0400 Body temperature 97.8 [degF] [employer] Work Phone: [employer]. 08-27-2011 15:03-0400 Body weight 101.27 kg [employer] PA-C Work Phone: [employer]. 08-27-2011 15:03-0400 Diastolic blood pressure 69 mm[Hg] Damari Henson PA-C Work Phone: [employer] 08-27-2011 15:03-0400 Heart rate 92 /min Damari Baldwin [employer] PA-C Work Phone: [employer] 08-27-2011 15:03-0400 Systolic blood pressure 141 mm[Hg] Damari Baldwin [employer] PA-C Work Phone: [employer] 08-12-2011 17:04-0400 Body height 170.18 cm Violet Dawn RN [employer]. 08-12-2011 17:04-0400 Body mass index (BMI) [Ratio] 35.77 kg/m2 Violet Dawn RN [employer]. 08-12-2011 17:04-0400 Body surface area Derived from formula 2.14 m2 Violet Dawn RN [employer]. 08-12-2011 17:04-0400 Body temperature 97 [degF] Violet Dawn RN [employer]. 08-12-2011 17:04-0400 Body weight 103.6 kg Violet Dawn RN [employer]. 08-12-2011 17:04-0400 Diastolic blood pressure 73 mm[Hg] Violet Dawn RN [employer]. 08-12-2011 17:04-0400 Heart rate 95 /min Violet Dawn RN [employer]. 08-12-2011 17:04-0400 Systolic blood pressure 124 mm[Hg] Violet Dawn RN [employer]. 02-19-2011 10:10-0400 Body height 170.18 cm Violet Dawn RN [employer]. 02-19-2011 10:10-0400 Body mass index (BMI) [Ratio] 34.64 kg/m2 Violet Dawn RN [place] [facility].; [facility] [employer] 02-19-2011 10:10-0400 Body surface area Derived from formula 2.11 m2 Violet Dawn RN [place] [facility] [employer]. 02-19-2011 10:10-0400 Body temperature 97.9 [degF] Violet Dawn RN [place] [facility].; [employer]. 02-19-2011 10:10-0400 Body weight 100.34 kg Violet Dawn RN [place] [facility] [employer]. 02-19-2011 10:10-0400 Diastolic blood pressure 86 mm[Hg] Violet Dawn RN [place] [facility] [employer]. 02-19-2011 10:10-0400 Heart rate 94 /min Violet Dawn RN [place] [employer] [facility].; [employer]. 02-19-2011 10:10-0400 Systolic blood pressure 139 mm[Hg] Violet Dawn RN [place] [facility] [employer]. 01-22-2011 17:00-0400 Body height 170.18 cm [facility] Work Phone: [facility] [employer] Work Phone: 01-22-2011 17:00-0400 Body mass index (BMI) [Ratio] 33.83 kg/m2 [facility] Work Phone: [employer]. Work Phone: 01-22-2011 17:00-0400 Body surface area Derived from formula 2.09 m2 [facility] Work Phone: [place] [employer]. Work Phone: 01-22-2011 17:00-0400 Body temperature 96.6 [degF] Madison Marquesy BLOOD BANK CREDIT CLERK Work Phone: [employer] Work Phone: 01-22-2011 17:00-0400 Body weight 97.98 kg Madison Ayala BLOOD BANK CREDIT CLERK Work Phone: [employer].; [employer] Work Phone: 01-22-2011 17:00-0400 Diastolic blood pressure 89 mm[Hg] Madison Lucy BLOOD BANK CREDIT CLERK Work Phone: [employer] Work Phone: 01-22-2011 17:00-0400 Heart rate 103 /min Madison Marquesy BLOOD BANK CREDIT CLERK Work Phone: [employer].; [employer] Work Phone: 01-22-2011 17:00-0400 Systolic blood pressure 131 mm[Hg] Madison Marquesy [employer] CLERK Work Phone: [employer] Work Phone: 09-01-2010 14:58-0400 Body temperature 98.1 [degF] Violet Dawn RN [employer] 09-01-2010 14:58-0400 Body weight 99.61 kg Violet Dawn RN [employer] 09-01-2010 14:58-0400 Diastolic blood pressure 73 mm[Hg] Violet Dawn RN [employer] 09-01-2010 14:58-0400 Heart rate 87 /min Violet Dawn RN [employer] 09-01-2010 14:58-0400 Systolic blood pressure 119 mm[Hg] Violet Dawn RN [employer] Encounters Encounter Date Encounter Type Care Provider Facility Start: 05-05-2025 End: 05-05-2025 ambulatory Jhon Capone PA Work Phone: -Laboratory Start: 05-05-2025 End: 05-05-2025 Patient encounter procedure Maria Teresa Pimentel PA -Laboratory Work Phone: Start: 05-05-2025 End: 05-05-2025 ambulatory Jhon Capone Facility:[facility] Start: 03-07-2025 End: 03-07-2025 Patient encounter procedure Raissa Griffith TEZ.FISH HATCHERY SUPERINTENDENT Work Phone: [facility] Comment on above: Acute pain of left s maria t (Primary Dx) Start: 03-07-2025 End: 03-07-2025 ambulatory RAISSA GRIFFITH Facility:[facility] Start: 02-23-2025 End: 02-23-2025 Patient encounter status Dania Michel MA [facility] [employer] [facility] Start: 02-23-2025 End: 02-23-2025 Periodic preventive med est patient 40-64yrs Jhon Capone PA-C Work Phone: [employer]. Start: 02-15-2025 End: 02-15-2025 Jhon Capone PA-C Work Phone: [facility] [employer]. Start: 02-12-2025 End: 02-12-2025 Jhon Capone PA-C Work Phone: [employer]. Start: 02-09-2025 End: 02-09-2025 ambulatory Jhon Capone PA Work Phone: [facility] Work Phone: Start: 02-09-2025 End: 02-09-[address] River Dai DO -Laboratory Work Phone: Start: 02-09-2025 End: 02-09-2025 ambulatory Jhon Capone Facility:[facility] Start: 12-27-2024 End: 12-27-2024 Office outpatient visit 15 minutes Jhon Capone PA-C Work Phone: [employer] Start: 12-26-2024 End: 12-26-2024 Telephone encounter Rupali Sage APRN.FISH HATCHERY SUPERINTENDENT Work Phone: OB/Gynecology Start: 10-31-2024 End: 10-31-[address] River Dai DO -Laboratory Work Phone: Start: 10-31-2024 End: 10-31-2024 ambulatory Jhon Capone Facility:[facility] Start: 10-30-2024 End: 10-30-2024 Jhon Capone PA-C Work Phone: [facility] Start: 09-11-2024 End: 09-11-2024 Office outpatient new 45 minutes [facility] Work Phone: [facility] Comment on above: Left shoulder pain, unspecified chronicity (Primary Dx) Start: 09-11-2024 End: 09-11-2024 Subsequent hospital visit by physician Alondra Little MD Work Phone: Imaging [facility] Comment on above: Arrived Start: 09-11-2024 ambulatory [facility] Start: 08-25-2024 End: 08-25-2024 Office outpatient visit 25 minutes Jhon Capone PA-C Work Phone: [employer] Start: 08-25-2024 Jhon Capone P A-C Work Phone: [employer] Start: 08-04-2024 End: 08-04-2024 ambulatory Jhon Capone Facility:[facility] Start: 07-11-2024 End: 07-12-2024 Documentation procedure Mammography Coordinator [facility] Department Start: 07-11-2024 End: 07-12-2024 Letter encounter Mammography Coordinator [facility] Department Start: 07-11-2024 End: 07-11-2024 Patient encounter procedure Rupali Sage APRN.FISH HATCHERY SUPERINTENDENT Work Phone: OB/Gynecology Comment on above: Encounter for gyneco logical examination (general) (routine) without abnormal findings (Primary Dx); Encounter for screening mammogram for breast cancer Start: 07-11-2024 End: 07-11-2024 Patient encounter status Rupali Sage APRN.CNP Work Phone: [facility] Start: 07-11-2024 End: 07-11-2024 ambulatory DAMARI HENSON Facility:[facility] Start: 07-11-2024 End: 07-11-2024 Subsequent hospital visit by physician Screen Mammo [facility] M[facility]ogram Comment on above: Encounter for screen ing mammogram for malignant neoplasm of breast [Z12.31] Start: 07-11-2024 End: 07-11-2024 ambulatory Jhon Capone Facility:[facility] Start: 02-18-2024 End: 02-18-2024 Periodic preventive med est patient 40-64yrs Jhon Capone PA-C Work Phone: [facility] [employer] Start: 02-18-2024 End: 02-18-2024 Medical examinations/reports status Dania Michel MA [facility] [employer] [facility] [employer] Start: 02-18-2024 Jhon Nazario Work Phone: [facility] [employer] Start: 02-07-2024 End: 02-07-2024 ambulatory [facility] Work Phone: Start: 02-07-2024 End: 02-07-2024 Discharged Recurring [facility]-Physical Therapy Work Phone: Start: 01-12-2024 Registered Recurring [facility]-Physical Therapy Work Phone: Start: 01-10-2024 End: 01-10-2024 ambulatory [facility] Work Phone: Start: 01-10-2024 End: 01-10-2024 Patient encounter procedure [facility]-Mariia Kelly Start: 11-12-2023 End: 11-12-2023 Admission to same day surgery center [facility]-Surgical Day Care Start: 11-12-2023 End: 11-12-2023 ambulatory [facility] Work Phone: Start: 10-19-2023 End: 10-19-2023 Office outpatient visit 15 minutes Jhon Capone PA-C Work Phone: [facility] Start: 10-19-2023 End: 10-19-2023 Preprocedural examination done Jhon Capone PA-C Work Phone: [facility]; [facility] Start: 10-09-2023 End: 10-09-2023 ambulatory [facility] Work Phone: Start: 10-09-2023 End: 10-09-2023 Patient encounter procedure [facility]-Laboratory Work Phone: Start: 09-07-2023 End: 09-07-2023 ambulatory [facility] Work Phone: Start: 09-07-2023 End: 09-07-2023 Patient encounter procedure [facility]-MRI - [facility] Work Phone: Start: 08-06-2023 End: 08-09-2023 Office outpatient visit 25 minutes Jhon Capone PA-C Work Phone: [employer] Start: 07-10-2023 End: 07-10-2023 ambulatory [facility] Work Phone: Start: 07-10-2023 End: 07-10-2023 Patient encounter procedure [facility]-Laboratory Work Phone: Start: 05-18-2023 ambulatory Rupali MCKOY RN.FISH HATCHERY SUPERINTENDENT Work Phone: OB/Gynecology Comment on above: Pap test Start: 05-12-2023 Documentation procedure Mammog cristina Coordinator [facility] Start: 05-12-2023 Letter encounter Mammography Coordinator [facility] Department Start: 05-10-2023 End: 05-10-2023 Patient encounter procedure Rupali Sage APRN.FISH HATCHERY SUPERINTENDENT Work Phone: OB/Gynecology Comment on above: Encounter for gyneco logical examination with abnormal finding (Primary Dx); Vulvovaginal itching; Postmenopausal atrophic vaginitis; Encounter for screening for human papillomavirus (HPV); Pap smear for cervical cancer screening; Encounter for screening mammogram for breast cancer Start: 05-10-2023 End: 05-10-2023 Patient encounter status Rupali Sage APRN.FISH HATCHERY SUPERINTENDENT Work Phone: OB/Gynecology Start: 04-23-2023 Telephone encounter Rupali ignacio APRN.FISH HATCHERY SUPERINTENDENT Work Phone: OB/Gynecology Comment on above: Orders Start: 04-15-2023 End: 04-15-2023 ambulatory [facility] Work Phone: Start: 04-15-2023 End: 04-15-2023 Patient encounter procedure [facility]-Laboratory Start: 01-28-2023 End: 01-28-2023 Office outpatient visit 25 minutes Jhon Capone PA-C Work Phone: [facility] Start: 2023 End: 2023 [facility] Start: 01-12-2023 End: 01-12-2023 ambulatory [facility] Work Phone: Start: 01-12-2023 End: 01-12-2023 Discharged Recurring [facility]-Physical Therapy Start: 10-09-2022 End: 10-09-2022 Admission to same day surgery center [facility]-Surgical Day Care Start: 09-29-2022 End: 09-29-2022 ambulatory [facility] Work Phone: Start: 09-29-2022 End: 09-29-2022 Patient encounter [facility] Start: 09-15-2022 End: 09-15-2022 ambulatory [facility] Work Phone: Start: 09-15-2022 End: 09-15-2022 Patient encounter procedure [facility]-Radiology, [facility] Start: 09-14-2022 End: 09-14-2022 ambulatory [facility] Work Phone: Start: 09-14-2022 End: 09-14-2022 Patient encounter procedure [facility]-Nuclear Medicine, [facility] Start: 08-22-2022 End: 08-22-2022 ambulatory [facility] Work Phone: Start: 08-22-2022 End: 08-22-2022 Patient encounter procedure [facility]-MRI - [facility] Start: 08-13-2022 End: 08-13-2022 ambulatory JHON PA-C [facility] Start: 08-13-2022 End: 08-13-2022 Patient encounter status Jhon Capone PA-C Work Phone: [facility]; [facility]. Start: 08-13-2022 End: 08-13-2022 Periodic preventive med est patient 40-64yrs Jhon Capone PA-C Work Phone: [facility]. Start: 07-25-2022 End: 07-25-2022 ambulatory MARIA TERESA PAC [facility] Start: 07-19-2022 End: 07-19-2022 ambulatory JHON PA-C [facility] Start: 07-04-2022 End: 07-04-2022 ambulatory JHON PA-C [facility] Start: 04-03-2022 End: 04-03-2022 ambulatory JHON PA-C [facility] Start: 01-28-2022 End: 01-28-2022 Office outpatient visit 15 minutes Jhon Capone PA-C Work Phone: [employer]. Start: 01-10-2022 End: 01-10-2022 ambulatory JHON PA-C [facility] Start: 12-02-2021 End: 12-02-2021 Office outpatient visit 25 minutes Jhon Capone PA-C Work Phone: [employer] Start: 09-20-2021 End: 09-20-2021 ambulatory [facility] Start: 07-17-2021 End: 07-17-2021 Patient encounter status Jhon Capone PA-C Work Phone: [employer]; [employer]. Start: 07-17-2021 End: 07-17-2021 Periodic preventive med est patient 40-64yrs Jhon Capone PA-C Work Phone: [employer]. Start: 06-25-2021 End: 06-25-2021 Jhon Capone PA-C Work Phone: [employer] Start: 04-15-2021 End: 04-15-2021 Office outpatient visit 15 minutes Jhon Capone PA-C Work Phone: [employer] Start: 03-24-2021 End: 03-24-2021 Office outpatient visit 15 minutes Jhon Capone PA-C Work Phone: [employer]. Start: 2021 End: 2021 Office outpatient visit 25 minutes Hjon Capone PA-C Work Phone: [employer]. Start: 12-17-2020 End: 12-17-2020 Office outpatient visit 40 minutes Jhon Capone PA-C Work Phone: [employer] Start: 09-18-2020 End: 09-18-2020 Office outpatient visit 15 minutes Jhon Capone PA-C Work Phone: [employer] Start: 09-12-2020 End: 09-12-2020 Jhon Caopne PA-C Work Phone: [employer] Start: 09-12-2020 End: 09-12-2020 Medical examinations/reports status Valerie Snow LPN [employer]; [employer] Start: 09-12-2020 End: 09-12-2020 Jhon Capone PA-C Work Phone: [employer] Start: 06-12-2020 End: 06-12-2020 Jhon Capone PA-C Work Phone: [employer]. Start: 03-12-2020 End: 03-12-2020 Office outpatient visit 25 minutes Jhon Capone PA-C Work Phone: [employer]. Start: 12-13-2019 End: 12-13-2019 Office outpatient visit 25 minutes Jhon Capone PA-C Work Phone: [employer]. Start: 10-30-2019 End: 11-06-2019 Jhon Capone PA-C Work Phone: [employer]. Start: 09-06-2019 End: 09-07-2019 Patient encounter status Jhon Capone PA-C Work Phone: [employer] Start: 09-06-2019 End: 09-07-2019 Jhon Capone PA-C Work Phone: [employer]. Start: 06-16-2019 End: 06-17-2019 Jhon Capone PA-C Work Phone: [employer]. Start: 06-06-2019 End: 06-06-2019 Office outpatient visit 25 minutes Jhon Capone PA-C Work Phone: [employer]. Start: 05-09-2019 End: 05-09-2019 Jhon Capone PA-C Work Phone: [employer]. Start: 04-05-2019 End: 04-05-2019 Jhon Capone PA-C Work Phone: [employer]. Start: 03-29-2019 End: 03-29-2019 Jhon Capone PA-C Work Phone: [employer] Start: 03-13-2019 End: 03-13-2019 Jhon Capone PA-C Work Phone: [employer]. Start: 03-08-2019 End: 03-08-2019 Jhon Capone PA-C Work Phone: [employer]. Start: 03-07-2019 End: 03-07-2019 Office outpatient visit 25 minutes Jhon Capone PA-C Work Phone: [employer]. Start: 03-07-2019 End: 03-06-2019 Jhon Capone PA-C Work Phone: [employer]. Start: 01-18-2019 End: 01-18-2019 Office outpatient visit 15 minutes Jhon Capone PA-C Work Phone: [employer]. Start: 12-28-2018 End: 12-28-2018 Jhon Capone PA-C Work Phone: [employer]. Start: 11-16-2018 End: 11-16-2018 Office outpatient visit 25 minutes Jhon Capone PA-C Work Phone: [employer] Start: 08-18-2018 End: 08-18-2018 Patient encounter status Jhon Capone PA-C Work Phone: [employer]; [employer] Start: 08-18-2018 End: 08-18-2018 Jhon Capone PA-C Work Phone: [employer] Start: 06-16-2018 End: 06-16-2018 Jhon Capone PA-C Work Phone: [employer]. Start: 05-09-2018 End: 05-09-2018 Office outpatient visit 15 minutes Jhon Cpaone PA-C Work Phone: [employer] Start: 02-21-2018 End: 02-21-2018 Jhon Capone PA-C Work Phone: [employer] Start: 02-09-2018 End: 02-09-2018 Office outpatient visit 25 minutes Jhon Capone PA-C Work Phone: [employer] Start: 11-24-2017 End: 11-24-2017 Jhon Capone PA-C Work Phone: [employer]. Start: 11-11-2017 End: 11-11-2017 Office outpatient visit 25 minutes Jhon Capone PA-C Work Phone: [employer]. Start: 10-06-2017 End: 10-06-2017 Jhon Capone PA-C Work Phone: [employer]. Start: 08-12-2017 End: 08-12-2017 Jhon Capone PA-C Work Phone: [employer]. Start: 08-12-2017 End: 08-12-2017 Office outpatient visit 15 minutes Jhon Capone PA-C Work Phone: [employer]. Start: 05-17-2017 End: 05-17-2017 Jhon Capone PA-C Work Phone: [employer]. Start: 04-13-2017 End: 04-15-2017 Jhon Capone PA-C Work Phone: [employer]. Start: 04-07-2017 End: 04-07-2017 Evaluation finding Jhon Capone PA-C Work Phone: [employer] Start: 04-07-2017 End: 04-07-2017 Jhon Capone PA-C Work Phone: [employer]. Start: 02-15-2017 End: 02-15-2017 Jhon Capone PA-C Work Phone: [employer]. Start: 11-24-2016 End: 11-24-2016 Jhon Capone PA-C Work Phone: [employer]. Start: 11-19-2016 End: 11-19-2016 Jhon Capone PA-C Work Phone: [employer]. Start: 08-13-2016 End: 08-13-2016 Jhon Capone PA-C Work Phone: [employer]. Start: 05-13-2016 End: 05-13-2016 Jhon Capone PA-C Work Phone: [employer]. Start: 03-20-2016 End: 03-22-2016 Office outpatient visit 25 minutes Jhon Capone PA-C Work Phone: [employer]. Start: 02-14-2016 End: 02-14-2016 Jhon Capone PA-C Work Phone: [employer]. Start: 11-12-2015 End: 11-12-2015 Jhon Capone PA-C Work Phone: [employer] Start: 10-29-2015 End: 10-29-2015 Jhon Capone PA-C Work Phone: [employer]. Start: 10-09-2015 End: 10-09-2015 Jhon Capone PA-C Work Phone: [employer]. Start: 09-04-2015 End: 09-04-2015 Jhon Capone PA-C Work Phone: [employer] Start: 08-07-2015 End: 08-07-2015 Jhon Capone PA-C Work Phone: [employer] Start: 07-23-2015 End: 07-23-2015 Office outpatient visit 15 minutes Jhon Capone PA-C Work Phone: [employer] Start: 07-08-2015 End: 07-08-2015 Jhon Capone PA-C Work Phone: [employer]. Start: 07-03-2015 End: 07-04-2015 Jhon Capone PA-C Work Phone: [employer] Start: 06-28-2015 End: 06-28-2015 Office outpatient visit 15 minutes Jhon Capone PA-C Work Phone: [employer] Start: 05-14-2015 End: 05-14-2015 Jhon Capone PA-C Work Phone: [employer]. Start: 03-11-2015 End: 03-11-2015 Jhon Capone PA-C Work Phone: [employer]. Start: 02-27-2015 End: 02-27-2015 Jhon Capone PA-C Work Phone: [employer]. Start: 01-31-2015 End: 01-31-2015 John Capone PA-C Work Phone: [employer]. Start: 01-16-2015 End: 01-17-2015 Jhon Capone PA-C Work Phone: [employer]. Start: 11-20-2014 End: 11-20-2014 Jhon Capone PA-C Work Phone: [employer]. Start: 11-15-2014 End: 11-15-2014 Jhon Capone PA-C Work Phone: [employer]. Start: 09-26-2014 End: 09-26-2014 Jhon Capone PA-C Work Phone: [employer]. Start: 08-27-2014 End: 08-27-2014 Jhon Capone PA-C Work Phone: [employer]. Start: 05-30-2014 End: 05-31-2014 Jhon Capone PA-C Work Phone: [employer]. Start: 05-24-2014 End: 05-24-2014 Routine general medical examination at a health care facility Jhon Capone PA-C Work Phone: [employer] Start: 05-24-2014 End: 05-24-2014 Jhon Capone PA-C Work Phone: [employer]. Start: 04-24-2014 End: 04-24-2014 Jhon Capone PA-C Work Phone: [employer] Start: 03-16-2014 End: 03-16-2014 Jhon Capone PA-C Work Phone: [employer]. Start: 02-28-2014 End: 02-28-2014 Jhon Capone PA-C Work Phone: [employer]. Start: 02-26-2014 End: 02-26-2014 Jhon Capone PA-C Work Phone: [employer]. Start: 08-30-2013 End: 08-30-2013 Jhon Capone PA-C Work Phone: [employer]. Start: 07-31-2013 End: 07-31-2013 Jhon Capone PA-C Work Phone: [employer]. Start: 07-25-2013 End: 07-25-2013 Jhon Capone PA-C Work Phone: [employer]. Start: 07-12-2013 End: 07-12-2013 Jhon Capone PA-C Work Phone: [employer]. Start: 07-05-2013 End: 07-05-2013 Jhon Capone PA-C Work Phone: [employer]. Start: 06-14-2013 End: 06-14-2013 Jhon Capone PA-C Work Phone: [employer]. Start: 06-12-2013 End: 06-12-2013 Jhon Capone PA-C Work Phone: [employer]. Start: 06-07-2013 End: 06-07-2013 Jhon Capone PA-C Work Phone: [employer]. Start: 04-26-2013 End: 04-26-2013 Jhon Capone PA-C Work Phone: [employer]. Start: 03-27-2013 End: 03-27-2013 Jhon Capone PA-C Work Phone: [employer]. Start: 03-24-2013 End: 03-24-2013 Jhon Capone PA-C Work Phone: [employer]. Start: 01-25-2013 End: 01-25-2013 Jhon Capone PA-C Work Phone: [employer]. Start: 01-23-2013 End: 01-23-2013 Jhon Caopne PA-C Work Phone: [employer]. Start: 11-21-2012 End: 11-21-2012 Jhon Capone PA-C Work Phone: [employer]. Start: 10-26-2012 End: 10-26-2012 Jhon Capone PA-C Work Phone: [employer]. Start: 10-19-2012 End: 10-19-2012 Jhon Capone PA-C Work Phone: [employer]. Start: 09-08-2012 End: 09-08-2012 Jhon Capone PA-C Work Phone: [employer]. Start: 07-12-2012 End: 07-12-2012 Jhon Capone PA-C Work Phone: [employer]. Start: 07-12-2012 End: 07-12-2012 Jhon Capone PA-C Work Phone: [employer]. Start: 05-27-2012 End: 05-27-2012 Jhon Capone PA-C Work Phone: [employer]. Start: 03-30-2012 End: 03-30-2012 Jhon Capone PA-C Work Phone: [employer] Start: 02-03-2012 End: 02-03-2012 Jhon Capone PA-C Work Phone: [employer] Start: 12-30-2011 End: 12-30-2011 Jhon Capone PA-C Work Phone: [employer]. Start: 12-22-2011 End: 12-22-2011 Jhon Capone PA-C Work Phone: [employer]. Start: 11-19-2011 End: 11-19-2011 Jhon Capone PA-C Work Phone: [employer]. Start: 10-05-2011 End: 10-05-2011 Jhon Capone PA-C Work Phone: [employer]. Start: 08-27-2011 End: 08-27-2011 Jhon Capone PA-C Work Phone: [employer]. Start: 08-12-2011 End: 08-12-2011 Jhon Caopne PA-C Work Phone: [employer]. Start: 03-26-2011 End: 03-26-2011 Jhon Capone PA-C Work Phone: [employer]. Start: 02-19-2011 End: 02-19-2011 Jhon Capone PA-C Work Phone: [employer] Start: 01-22-2011 End: 01-22-2011 Jhon Capone PA-C Work Phone: [employer]. Start: 09-01-2010 End: 09-01-2010 Jhon Capone PA-C Work Phone: [employer]. Start: 08-28-2010 End: 08-28-2010 Jhon Capone PA-C Work Phone: [employer]. Start: 08-18-2010 End: 08-18-2010 Laboratory examination ordered as part of a routine general medical examination Jhon Capone PA-C Work Phone: [employer] Start: 08-18-2010 End: 08-18-2010 Jhon Capone PA-C Work Phone: [employer] Start: 07-17-2010 End: 07-17-2010 Jhon Capone PA-C Work Phone: [facility] [employer] [facility]. Evaluation finding Damari D Umesh van PA-C Work Phone: [facility] [facility] [employer] [facility].; [employer] [facility]. Laboratory examinati on ordered as part of a routine general medical examination Violet Dawn RN [facility] [employer] [facility].; [employer], [facility]. Medical examinations/reports status Jhon Capone PA-C Work Phone: [employer] [facility] [employer] [facility].; [employer] Patient encounter status Itzel Pickett MA [facility].; [employer]. Patient encounter status Flo Henson PA-C Work Phone: [employer] Patient encounter status Flo Henson PA-C Work Phone: [employer] Patient encounter status Dania Michel MA [facility] Patient encounter status Dania Michel MA [facility].; [employer]. Patient encounter status Itzel Pickett MA [facility] Inc.; [employer] Patient encounter status Jhon Capone PA-C Work Phone: [employer] [facility].; [employer] Preprocedural examin ation done Dania Michel MA [facility].; [employer]. Preprocedural examin ation done Dania Michel MA [facility], Inc.; [employer] Preprocedural examin ation done Itzel Pickett MA [facility].; [employer] Routine general medi [facility]ian [facility] Violet Dawn RN [employer] [facility]. Procedures Date Procedure Procedure Detail Performing Clinician Start: 05-10-2025 End: 05-10-2025 Danisha Lal Start: 02-23-2025 End: 02-23-2025 Depression screening Jhon SANDHU-C Work Phone: Start: 02-23-2025 End: 02-23-2025 Scr dep neg, no plan reqd Jhon SANDHU-C Work Phone: Start: 02-14-2025 End: 02-14-2025 Hyacinth Mahajan Start: 02-09-2025 End: 02-09-2025 Hyacinth Mahajna Start: 11-15-2024 End: 11-15-2024 Hyacinth Mahajan Start: 09-11-2024 Radex shoulder complete minimum 2 views Alondra Little MD Work Phone: Start: 08-09-2024 End: 08-09-2024 Dania Michel MA Start: 07-11-2024 Screening digital breast tomosynthesis bi Rupali Sgae APRN.FISH HATCHERY SUPERINTENDENT Work Phone: Start: 02-18-2024 End: 02-18-2024 Depression screening Jhon SANDHU-C Work Phone: Start: 02-18-2024 End: 02-18-2024 Scr dep neg, no plan reqd Jhon SANDHU-C Work Phone: Start: 01-10-2024 End: 01-10-2024 Dania Michel MA Start: 11-12-2023 End: 11-12-2023 Dania Michel MA Start: 11-12-2023 Fluoroscopic guidance Start: 11-12-2023 Radiography of foot Start: 11-12-2023 Resection Heel Spur/Plantar Fasciotomy (Left) Start: 09-07-2023 MRI of joint of lower extremity Start: 07-20-2023 End: 07-20-2023 Examination of retina Itzel Pickett MA Start: 05-10-2023 Mammography Mammography Coordinator Start: 10-09-2022 X-ray of both feet Start: 10-09-2022 Diagnostic radiography of calcaneus Start: 10-09-2022 Fluoroscopic guidance Start: 09-15-2022 X-ray of skull Start: 09-14-2022 Radionuclide whole body bone study Start: 08-22-2022 MRI of joint of lower extremity Start: 08-13-2022 End: 08-13-2022 Depression screening Jhonranda Capone PA-C Work Phone: Start: 08-13-2022 End: 08-13-2022 Pos clin depres scrn f/u doc Jhon Capone PA-C Work Phone: Start: 10-03-2021 End: 10-03-2021 Mammography Itzel Pickett MA Start: 07-17-2021 End: 07-17-2021 Depression screening Jhonbrooke Capone PA-C Work Phone: Start: 07-17-2021 End: 07-17-2021 Scr dep neg, no plan reqd Jhon Capone PA-C Work Phone: Start: 07-06-2021 End: 07-06-2021 Lab findings surveillance Itzel Shirley Start: 07-06-2021 End: 07-06-2021 Itzel Pickett MA Start: 07-06-2021 End: 07-06-2021 Itzel Pickett MA Start: 2021 End: 2021 Most recent diastolic blood pressure 80-89 mm hg Damari Henson PA-C Work Phone: Start: 2021 End: 2021 Most recent systolic blood press 130-139mm hg Damari Henson PA-C Work Phone: Start: 09-12-2020 End: 09-12-2020 Depression screening Damari Henson PA -C Work Phone: Start: 09-12-2020 End: 09-12-2020 Scr dep neg, no plan reqd Damari kelly PA-C Work Phone: Start: 09-06-2020 End: 09-25-2021 Dxa bone density study 1/> sites axial skel Damari D Waltham PA-C Work Phone: Start: 06-30-2020 End: 06-30-2020 Itzel Pickett MA Start: 06-12-2020 End: 09-25-2021 Most recent hg a1c>equal to 7.0%&<8.0% Damarialessandra Henson PA-C Work Phone: Start: 03-12-2020 End: 09-25-2021 Most recent hg a1c>equal to 7.0%&<8.0% Damari Denny Waltham PA-C Work Phone: Start: 03-12-2020 End: 03-12-2020 Itzel Pickett MA Start: 12-12-2019 End: 09-25-2021 Most recent hg a1c>equal to 7.0%&<8.0% Damari Baldwin [place] PA-C Work Phone: Start: 09-06-2019 End: 09-06-2019 Depression screening Damari Henson PA -C Work Phone: Start: 09-06-2019 End: 09-06-2019 Scr dep neg, no plan reqd Damari Hogan ls PA-C Work Phone: Start: 03-07-2019 End: 03-07-2019 Adarsh inhibitor/arb therapy rxd/currently taken Damari Henson PA-C Work Phone: Start: 03-07-2019 End: 03-07-2019 Documentation of treatment for nephropathy Damari Henson PA-C Work Phone: Start: 03-07-2019 End: 03-07-2019 Foot examination performed Damari celestes PA-C Work Phone: Start: 03-07-2019 End: 03-07-2019 [...] End: 02-09-2018 Body mass index documented Damari Baldwin Hi lls PA-C Work Phone: Start: 02-09-2018 End: 02-09-2018 Dilated retinal exam w/evidence of retinopathy Damari Henson PA-C Work Phone: Start: 02-09-2018 End: 02-09-2018 Most recent hemoglobin a1c level < 7.0% Damari Henson PA-C Work Phone: Start: 02-09-2018 End: 02-17-2018 Us soft tissue head & neck real time imge docm Damari Henson PA-C Work Phone: Start: 11-24-2017 End: 11-24-2017 Itzel Pickett MA Start: 11-11-2017 End: 11-11-2017 Body mass index documented Damari D Hi lls PA-C Work Phone: Start: 11-11-2017 End: 11-11-2017 Dilated retinal exam w/evidence of retinopathy Damari Henson PA-C Work Phone: Start: 11-11-2017 End: 11-11-2017 Most recent hemoglobin a1c level < 7.0% Damari Henson PA-C Work Phone: Start: 11-11-2017 End: 11-11-2017 Negative microalbuminuria test result doc&rev Damari Henson PA-C Work Phone: Start: 09-11-2017 End: 09-11-2017 Bilateral oophorectomy Itzel Pickett MA Start: 08-12-2017 End: 08-12-2017 Most recent diastolic blood pressure < 80 mm hg Damari Henson PA-C Work Phone: Start: 08-12-2017 End: 08-12-2017 Most recent hemoglobin a1c level < 7.0% Damari Henson PA-C Work Phone: Start: 08-12-2017 End: 08-12-2017 Most recent systolic blood pressure <130 mm hg Damari Henson PA-C Work Phone: Start: 08-12-2017 End: 08-12-2017 Body mass index documented Damari Calvo lls PA-C Work Phone: Start: 06-08-2017 End: 06-08-2017 Screening colonoscopy Itzel Pickett MA Start: 04-13-2017 End: 04-22-2017 Us pelvic nonobstetric real-time image complete Damari Henson PA-C Work Phone: Start: 04-07-2017 End: 04-12-2017 Ct abdomen & pelvis w/contrast material Damari Henson PA-C Work Phone: Start: 06-01-2016 End: [...] Start: 10-29-2015 End: 10-29-2015 Removal skn tags market research manager fibrq tags any area upw/15 Damari Baldwin [employer] PA-C Work Phone: Start: 11-20-2014 End: 11-29-2014 Xtrnl ecg & 48 hr record scan stor w/r&i Damari Henson PA-C Work Phone: Start: 07-19-2013 Colonoscopy Rupali Sage APRN.FISH HATCHERY SUPERINTENDENT Work Phone: Start: 06-12-2013 End: 06-14-2013 Hepatobiliary syst imaging including gallbladder Damari Baldwin [employer] PA-C Work Phone: Start: 06-07-2013 End: 06-12-2013 Us abdominal real time w/image limited Damari Henson PA-C Work Phone: Start: 11-08-2012 End: 11-08-2012 Cholecystectomy Itzel Pickett MARYJO Start: 11-08-2012 End: 11-08-2012 Colonoscopy Itzel Pickett MA Start: 07-12-2012 End: 07-12-2012 Polysom 6/>yrs sleep w/cpap 4/> addl bhavani attnd Mary Benito Work Phone: Start: 05-27-2012 End: 06-20-2012 Polysom 6/>yrs sleep 4/> addl bhavani attnd Yolanda Bridges MD Work Phone: section Itzel baldwin MA section Dania garcía MA section Itzel baldwin MA section Dania garcía MA History of decompres hemal of median nerve History of carpal tunnel surgery of left wrist Plan of Treatment Date Care Activity Detail Author Start: 2031 Tetanus vaccination TETANUS [facility] Start: 2031 Urine microalbumin profile DTaP,Tdap,Td Vaccine (3 - Td or Tdap) [facility] Start: 05-10-2028 HPV TESTING HPV TESTING [facility] Start: 05-10-2028 PAP TESTING PAP TESTING [facility] Start: 05-10-2028 Screening for malignant neoplasm of cervix Cervical Cancer Screening [facility] Start: 08-15-2025 End: 08-15-2025 Patient encounter procedure 08/15/2025 10:30 AM EDT Office Visit OB/Gynecology [address] [place] [address] Rupali Sage APRN.FISH HATCHERY SUPERINTENDENT [address] [place] [address] Annual OB/Gynecology Comment on above: Annual Start: 08-15-2025 End: 08-15-2025 Patient encounter procedure 08/15/2025 9:10 AM EDT Appointment Mammogram [address] [place] [place] [id number] SCREENING MAMMOGRAM W GLORIA Mammogram Comment on above: SCREENING MAMMOGRAM W GLORIA Start: 08-14-2025 [facility] Start: 07-11-2025 Screening for malignant neoplasm of breast [facility] Start: 07-10-2025 End: 07-10-2025 Patient encounter procedure Mammogram Comment on above: Encounter for gynecological examination (general) (routine) without abnormal fin... Annual Start: 07-04-2025 DIABETES SCREEN DIABETES SCREEN [facility] Start: 07-04-2025 Diabetes Screening Diabetes Screening [facility] Start: 02-23-2025 [facility] Start: 2025 RSV Vaccine (1 - Risk 60-74 years 1-dose series) RSV Vaccine (1 - Risk 60-74 years 1-dose series) [facility] Start: 08-25-2024 [facility] Start: 07-09-2024 Covid-19 Vaccine ( season) Covid-19 Vaccine () [facility] Start: 07-09-2024 COVID-19 VACCINE () COVID-19 VACCINE () [facility] Start: 07-09-2024 Influenza vaccination Influenza Vaccine (#1) [facility] Start: 05-10-2024 Mammography MAMMOGRAM [facility] Start: 02-18-2024 [facility] Start: 02-03-2024 [facility] Start: 11-12-2023 Anes open proc bones lower leg/ankle/foot nos ANESTH LOWER LEG BONE SURG [facility] Start: 11-12-2023 Ostectomy calcaneus spur w/wo plntar fascial rls REMOVAL OF HEEL SPUR [facility] Start: 11-12-2023 Repair primary open/prq ruptured achilles tendon REPAIR ACHILLES TENDON [facility] Start: 11-12-2023 Application of gauze support bandage [facility] Start: 11-12-2023 Catheterization of vein [facility] Start: 11-12-2023 Elevation of foot of bed [facility] Start: 11-12-2023 Neurovascular assessment [facility] Start: 11-12-2023 Patient discharge [facility] Start: 11-12-2023 Procedure discontinued [facility] Start: 11-12-2023 Vital signs measurements [facility] Start: 11-12-2023 [facility] Start: 07-09-2023 Influenza vaccination [facility] Start: 11-08-2022 DEPRESSION ASSESSMENT DEPRESSION ASSESSMENT [facility] Start: 10-09-2022 Anes rpr ruptured achilles tendon w/wo graft ANESTH ACHILLES TENDON SURG [facility] Start: 10-09-2022 Fasciotomy foot&/toe INCISION OF FOOT FASCIA [facility] Start: 10-09-2022 Repair primary open/prq ruptured achilles tendon REPAIR ACHILLES TENDON [facility] Start: 10-09-2022 Application of ice collar, cap or bag [facility] Start: 10-09-2022 Catheterization of vein [facility] Start: 10-09-2022 Elevation of foot of bed [facility] Start: 10-09-2022 Neurovascular assessment [facility] Start: 10-09-2022 Patient discharge [facility] Start: 10-09-2022 Procedure discontinued [facility] Start: 10-09-2022 Vital signs measurements [facility] Start: 10-09-2022 [facility] Start: 10-03-2022 Mammography MAMMOGRAM [facility] Start: 09-12-2021 COVID-19 VACCINE (3 - Booster for Pfizer series) COVID-19 VACCINE (3 - Booster for Pfizer series) [facility] Start: 09-12-2021 COVID-19 VACCINE (3 - Pfizer series) COVID-19 VACCINE (3 - Pfizer series) [facility] Start: 04-15-2021 Comprehensive metabolic panel [facility] Start: 01-14-2021 Urine microalbumin profile DTaP,Tdap,Td Vaccine (1 - Tdap) [facility] Start: 09-09-2017 End: 09-09-2017 Mri upper extremity oth than jt w/o contr matrl MRI Non Joint Upper Extremity [facility] Work Phone: Start: 09-09-2017 End: 09-09-2017 Radex hand minimum 3 views X-Ray, Hand [facility] Work Phone: Start: 09-09-2017 End: 09-09-2017 Appointment Appointment [facility] Work Phone: Start: 09-08-2017 End: 09-08-2017 Appointment Appointment [facility] Work Phone: Start: 06-14-2017 End: 06-14-2017 Esophagogastroduodenoscopy transoral diagnostic EGD; diagnostic, including collection of specimen [facility] Work Phone: Start: 06-10-2017 End: 06-10-2017 Colonoscopy flx dx w/collj spec when pfrmd Colonoscopy [facility] Work Phone: Start: 07-19-2016 Colonoscopy COLONOSCOPY [facility] Start: 07-19-2016 COLORECTAL CANCER SCREENING COLORECTAL CANCER SCREENING [facility] Start: 07-19-2016 Screening for malignant neoplasm of colon [facility] Start: 06-01-2016 End: 08-12-2016 EMG EMG [facility] Work Phone: Start: 06-01-2016 End: 08-12-2016 Nerve Conduction Nerve Conduction [facility] Work Phone: Start: 06-01-2016 End: 08-12-2016 Radex spine cervical 2 or 3 views X-Ray, Spine, Cervical 2-3 views [facility] Work Phone: Start: 2015 Pneumococcal Vaccine: 50+ (2 of 2 - PCV) Pneumococcal Vaccine: 50+ (2 of 2 - PCV) [facility] Start: 2015 SHINGRIX VACCINE (1 of 2) SHINGRIX VACCINE (1 of 2) [facility] Start: 2015 Zoster vaccine hzv live for subcutaneous use ZOSTER (SHINGLES) VACCINE (1 of 2) [facility] Start: 2010 COLOGUARD (FIT-DNA) COLOGUARD (FIT-DNA) [facility] Start: [address] COLONOGRAPHY [facility] Start: 2010 FECAL OCCULT BLOOD FECAL OCCULT BLOOD [facility] Start: 2010 Lipid panel Lipid Screening [facility] Start: 2010 LIPID SCREEN LIPID SCREEN [facility] Start: 2010 Screening for malignant neoplasm of colon [facility] Start: 2010 SIGMOIDOSCOPY SIGMOIDOSCOPY [facility] Start: 2005 Lipid panel LIPID SCREENING [facility] Start: 1995 HPV TESTING HPV TESTING [facility] Start: 1986 PAP TESTING PAP TESTING [facility] Start: 1986 Screening for malignant neoplasm of cervix CERVICAL CANCER SCREENING DISCUSSION [facility] Start: 01-14-1984 Hepatitis B vaccination HEP B VACCINE (1 of 3 - 19+ 3-dose series) [facility] Start: 01-14-1984 Third diphtheria, tetanus and acellular pertussis (DTaP) vaccination TDAP (ADULT) [facility] Start: 01-14-1984 Urine microalbumin profile DTAP,TDAP,TD (1 - Tdap) [facility] Start: 1983 Anxiety Screening Anxiety Screening [facility] Start: 1983 Depression Screening Depression Screening [facility] Start: 1983 HEPATITIS C SCREENING HEPATITIS C SCREENING [facility] Start: 1983 Hepatitis C screening Hepatitis C Screening [facility] Start: 1983 HIV SCREENING HIV SCREENING [facility] Start: 1983 HIV screening HIV Screening [facility] Start: 01-14-1980 HIV screening HIV SCREENING DISCUSSION [facility] Start: 1965 COVID-19 VACCINE (#1) COVID-19 VACCINE (#1) [facility] Start: 1965 HEPATITIS B (1 of 3 - 3-dose series) HEPATITIS B (1 of 3 - 3-dose series) [facility] Start: 1965 Hepatitis C screening HEPATITIS C VIRUS SCREENING [facility] End: 08-10-2025 DBT Breast - bilateral screening JHONATAN SCREENING W GLORIA Radiology Routine Encounter for gynecological examination (general) (routine) without abnormal findings Encounter for screening mammogram for breast cancer 1 Occurrences starting 07/11/2024 until 08/10/2025 [facility] Work Phone: Comment on above: 1 Occurrences starting 07/11/2024 until 08/10/2025 End: 01-25-2026 DBT Breast - bilateral screening JHONATAN SCREENING W GLORIA Radiology Routine Encounter for screening mammogram for malignant neoplasm of breast 1 Occurrences starting 12/26/2024 until 01/25/2026 [facility] Work Phone: Comment on above: 1 Occurrences starting 12/26/2024 until 01/25/2026 End: 05-22-2024 JHONATAN SCREENING W GLORIA JHONATAN SCREENING W GLORIA Radiology Routine Encounter for screening mammogram for malignant neoplasm of breast 1 Occurrences starting 04/23/2023 until 05/22/2024 [facility] Work Phone: Comment on above: 1 Occurrences starting 04/23/2023 until 05/22/2024 End: 06-08-2024 JHONATAN SCREENING W GLORIA JHONATAN SCREENING W GLORIA Radiology Routine Encounter for gynecological examination with abnormal finding Encounter for screening mammogram for breast cancer 1 Occurrences starting 05/10/2023 until 06/08/2024 [facility] Work Phone: Comment on above: 1 Occurrences starting 05/10/2023 until 06/08/2024 Microscopic observat ion [Identifier] in Vaginal fluid by Gram stain BACT/ROBERTO CARLOS VAG GRAM STAIN Microbiology Routine Vulvovaginal itching 05/10/2023 10:30 AM EDT [facility] Work Phone: PAP TEST PAP TEST Lab Di richards Encounter for gynecological examination with abnormal finding Encounter for screening for human papillomavirus (HPV) Pap smear for cervical cancer screening 05/10/2023 10:30 AM EDT [facility] Work Phone: Patient Education CARPAL%20TUNNE L%20SU ERY [facility] Work Phone: Patient referral [facility] Work Phone: [facility] Immunizations Immunization Date Immunization Notes Care Provider Katlyn lee 06-26-2021 Jhon Capone PA -C Work Phone: [employer] 2021 TD(adult) unspecifie d formulation Jhon Capone PA-C Work Phone: [employer]; [employer] 02-14-2018 typhoid vaccine, molly e, oral Jhon Capone PA-C Work Phone: [employer]; [employer] 02-09-2018 typhoid vaccine, unspecified formulation Jhon Capone PA-C Work Phone: [employer] 10-06-2017 hepatitis A vaccine, adult dosage Jhon Capone PA-C Work Phone: [employer]; [employer] 02-15-2017 hepatitis A vaccine, adult dosage Jhon Capone PA-C Work Phone: [employer] 07-29-2016 influenza, seasonal, injectable Jhon Capone PA-C Work Phone: [employer]; [employer] 07-29-2016 influenza virus vacc ine, unspecified formulation Rupali Sage CULL GRADER.FISH HATCHERY SUPERINTENDENT Work Phone: [facility] 08-30-2013 pneumococcal Conjuga te, unspecified formulation Jhon Capone PA-C Work Phone: [facility] 08-30-2013 pneumococcal polysaccharide vaccine, 23 valent Jhon Capone PA-C Work Phone: [facility] 08-29-2009 tetanus toxoid, redu ubaldo diphtheria toxoid, and acellular pertussis vaccine, adsorbed Jhon Capone PA-C Work Phone: [facility] [employer]; [facility] Work Phone: Payers Date Payer Category Payer Self-pay [id number] [facility] [id number] 2023 Unknown [id number] 2014 Unknown [id number] 2006 Unknown [id number] 1965 Unknown [id number] [id number]. 2.651 1965 Unknown [id number] [id number]. 2.65 1965 Unknown [id number] [id number]. 2.651 1965 Unknown [id number] [id number]. 2.651 1965 Unknown [id number] [id number]. 2.651 1965 Unknown [id number] [id number]. 2.651 1965 Unknown [id number] [id number]. 2.651 1965 Unknown [id number] [id number]. 2.594 1965 Unknown [id number] [id number]. 2.594 Private Health Insurance [id number] Unknown [id number] Unknown [id number] Unknown [id number] [id number]. 2.462 Unknown [id number] [id number]. 2.462 Unknown [id number] [id number]. 2.462 Unknown [id number] [id number]. 2.462 Unknown [id number]. 2.462 Social History Date Type Detail Facility Start: 09-01-2018 End: 11-02-2023 Tobacco smoking status HIIS Unknown if ever smoked [facility] Start: 1965 Sex Assigned At Female W [facility] Start: 06-12-2020 End: 11-02-2023 Tobacco smoking status NHIS Never smoked tobacco [facility] Work Phone: Start: 06-12-2020 End: 07-03-2023 Tobacco use and exposure Smokeless tobacco non-user [facility] Work Phone: Start: 08-06-2021 End: 03-07-2025 Alcohol intake Current non-drinker of alcohol (finding) [facility] Start: 06-12-2020 History SDOH Financial 5 [facility] Start: 06-12-2020 History SDOH Food Worry 1 [facility] Start: 06-12-2020 History SDOH Transport Med 2 [facility] Start: 1965 Sex Assigned At Not on file [facility] Start: 06-12-2020 End: 05-10-2023 History of Social function [facility] Work Phone: Start: 06-12-2020 End: 05-10-2023 Tobacco use panel [facility] Work Phone: How hard is it for you to pay for the very basics like food, housing, medical care, and heating Not hard at all [facility] Work Phone: (I/We) worried whether (my/our) food would run out before (I/we) got money to buy more. Never true [facility] Work Phone: None. [facility], AL[facility]IA.; [facility], AL[facility]IA. Never smoker. [facility] Start: 02-15-2025 Sex Female (finding) [facility] NEGATED: Highlighted row [facility] Medical Equipment Procedure Code Equipment Code Equipment Origin al Text Equipment Identifier Dates ([id number]) Tendon/ligament bone anchor, bioabsorbable ([id number] [facility] Start: 10-09-2022 [id number] Start: 09-06-2019 [id number] Start: 09-06-2019 ([id number]) Tendon/ligament bone anchor, bioabsorbable ()[id number] FDA Start: 11-12-2023 Goals Date Patient Goal Desired Activity /State 03-08-2019 Functional Status Date Assessment Result Facility 12-16-2014 Are you deaf, or do you have serious difficulty hearing No 12/16/2014 10:23 AM Laura Farrell RN No [facility] Work Phone: 12-16-2014 Are you blind, or do you have serious difficulty seeing, even when wearing glasses No 12/16/2014 10:23 AM Laura Farrell RN No [facility] 12-16-2014 Do you have serious difficulty walking or climbing stairs No 12/16/2014 10:23 AM Laura Farrell RN No [facility] 12-16-2014 Do you have difficul ty dressing or bathing No 12/16/2014 10:23 AM Laura Farrell RN No [facility] 12-16-2014 Because of a physica l, mental, or emotional condition, do you have difficulty doing errands alone such as visiting a physician's office or shopping No 12/16/2014 10:23 AM Laura Farrell RN No [facility] Mental Status Date Assessment Result Facility 11-12-2023 Cognitive function Lethargic [facility] Work Phone: 10-09-2022 Cognitive function Voice/Name [facility] Work Phone: 10-09-2022 Cognitive function Patient Nimo saldivar Person;Place;Time [facility] Work Phone: 12-16-2014 Because of a physica l, mental, or emotional condition, do you have serious difficulty concentrating, remembering, or making decisions No 12/16/2014 10:23 AM Laura Farrell RN No [facility] Clinical Notes 2023 to 03-07-2025 Raissa Griffith APRN.CNP - 03/07/2025 8:46 AM EDTTelephone Encounter - Michelle Landry LPN - 12/26/2024 3:39 PM ESTTelephone Encounter - Michelle Landry LPN - 12/26/2024 3:39 PM EST Note Date & Type Note Facility 03-07-2025 Note HNO ID: [id number] Author: RAISSA GRIFFITH APRN.CNP Service: ? Author Type: Nurse Practitioner Type: Progress Notes Filed: 03/07/2025 10:13 Note Text: [facility] Subjective HPI HPI Lyndsey Pandey [...] tablet Take by mouth. calcium carbonate/vitamin D2 ([id number] ORAL) Take 1 tablet by mouth once [...] - PREDNISONE 10 MG TABLET Raissa Griffith APRN.FISH HATCHERY SUPERINTENDENT Disposition The patient was discharged. Procedures [facility] 03-07-2025 History of Presen t illness Narrative Images from the original note were not included. [facility] Subjective HPI HPI Lyndsey Pandey [...] tablet Take by mouth. calcium carbonate/vitamin D2 ([id number] ORAL) Take 1 tablet by mouth once [...] - PREDNISONE 10 MG TABLET Raissa Griffith APRN.FISH HATCHERY SUPERINTENDENT Disposition The patient was discharged. Procedures documented in this encounter [facility] 12-26-2024 Telephone encounter Note Patient called requesting an order for a screening mammmogram with gloria. Last yearly exam was 07/11/2024 [facility] 12-26-2024 Miscellaneous Notes Patient called requesting an order for a screening mammmogram with gloria. Last yearly exam was 07/11/2024 documented in this encounter [facility] 09-11-2024 History of Presen t [...] Medicine Sports Medicine documented in this encounter [facility] 09-11-2024 Instructions Alondra Little MD - 09/11/2024 [...] primary care physician documented in this encounter [facility] 07-11-2024 Note Formatting of this n ote might be different from the original. July 11, 2024 PID: [id number] Lyndsey Pandey [id number] [place] [address] Dear Ms. Pandey, We are pleased to [...] report will be kept on file at [facility] as part of your permanent medical record and are available for your continuing care. Thank you for allowing us to help in meeting your health care needs. Sincerely, Dr. Torres Interpreting Radiologist [facility] (Normal over 40) [facility] 07-11-2024 Miscellaneous Notes July 11, 2024 PID: [id number] Lyndsey Pandey [id number] [place] [address] Dear Ms. Pandey, We are pleased to [...] report [facility] Center as part of your permanent medical record and are available for your continuing care. Thank you for allowing us to help in meeting your health care needs. Sincerely, Dr. Torres Interpreting Radiologist [facility] (Normal over 40) documented in this encounter [facility] 07-11-2024 History of Presen t [...] PATIENT PRESENTS WITH AN IMPLANTABLE OR ATTACHED INSTITUTION LIBRARIAN: No RADIOLOGY DEPARTMENT: Mammography PERIPHERAL IV DATA: Not applicable SIGNED BY: Rocio Wheeler July 11, 2024 9:15 AM documented in this encounter [facility] 07-11-2024 Note HNO ID: [id number] Author: ROBIN MAYFIELD Mammo Tech Service: ? [...] PATIENT PRESENTS WITH AN IMPLANTABLE OR ATTACHED INSTITUTION LIBRARIAN: No RADIOLOGY DEPARTMENT: Mammography PERIPHERAL IV DATA: Not applicable SIGNED BY: Robin Mayfield iPointer July 11, 2024 9:15 AM [facility] 07-11-2024 Note HNO ID: [id number] Author: RUPALI SAGE APRN.FISH HATCHERY SUPERINTENDENT Service: ? Author Type: Nurse Practitioner Type: Progress Notes Filed: 07/11/2024 09:56 Note Text: Chinese Medicine Practitioner offered:Patient timo Solorio is a 59 year [...] L2 SAB0 IAB0 Ectopic0 Multiple0 Live Births0 Spin Instructor History LMP: Postmenopausal Age at Menarche: 13 Age at First : Age at Menopause: 45 Spin Instructor History Comments: Sexual Activity: Not Currently; Male [...] DX W/COLLJ SPEC WHEN PFRMD Comment: due 2026 9-11-13 and 2016: EGD TRANSORAL BIOPSY SINGLE/MULTIPLE 2023: [...] external genitalia normal, normal Bartholin's glands, urethra, Paonia's glands, no vulvar lesions, no cervical lesions, [...] or sooner as needed Rupali Sage APRN.[facility] 07-11-2024 History of Presen t illness Narrative Chinese Medicine Practitioner offered:Patient timo Solorio is a 59 year [...] L2 SAB0 IAB0 Ectopic0 Multiple0 Live Births0 Spin Instructor History LMP: Postmenopausal Age at Menarche: 13 Age at First : Age at Menopause: 45 Spin Instructor History Comments: Sexual Activity: Not Currently; Male [...] external genitalia normal, normal Bartholin's glands, urethra, Paonia's glands, no vulvar lesions, no cervical lesions, [...] year or sooner as needed Rupali Sage APRN.FISH HATCHERY SUPERINTENDENT documented in this encounter [facility] 02-07-2024 Discharge summary Note Date/Time February 07, 2024 11:33am [facility] [address] [place] [address] / REHABILITATION SERVICES DISCHARGE SUMMARY MR#: [id number] Acct: [id number] Name: LYNDSEY PANDEY Rep #: [id number] : 1965 59 From: Flex De La Cruz PT, ATC Referring Dr.: AMISHA Brooks [facility] Insurance: [employer] SELF PAY INSURANCE Discharge Summary D/C summary: [...] Progress: Goal Met Plan Plan: Discharge to HEP D/C Information d/c sentence: If there are questions or concerns regarding this patient's physical therapy, please feel free to call me at [phone]. Thank you for the referral of thispatient. Sincerely, Flex De La Cruz, PT, ATC Balance/Gait/Functional tests Balance/Special Test Scores Lower Extremity Functional Score: 52 Improvement % Improvement: 95 <Electronically signed by Flex De La Cruz PT, ATC> 02/07/24 1133 CC: AMISHA Brooks; PHOEBE Mackey ~ [facility] Signed [facility] Work Phone: 1(517) 365-366501-05-2024 Discharge summary Author Mg Brooks [facility] November 12, 2023 9:41am Note Date/Time November 12, 2023 7: 30am [facility] Medical Records Department [address] [place] [address] Instructions for Home/Discharge Instructions 11/12/23 0729 MR#: [id number] Acct: [id number] Name: LYNDSEY PANDEY Rep #:[id number] : 1965 58 From: Mg Brooks DPM PCP: PHOEBE Mackey Status:REG [facility] Discharge Instructions Diet Discharge Diet: [...] Attending Provider: Mg Brooks Primary Care Provider: Jhon Capone Discharge Orders/Prescriptions Prescriptions: New oxycodone-acetaminophen [Percocet] [...] mg PO DAILY Referrals / Follow Up: Jhon Capone PA [Primary Care Provider] - Disposition Disposition (needs filled in before D/C Order can be placed): Home, Self Care 11/12/23 0975<Electronically signed by Mg Brooks DPM>Mg Brooks DPM CC: PHOEBE Mackey ~ Signed [facility] Work Phone: 1(372) 298-966407-05-2023 Miscellaneous Notes* Letter - Mammography Coordinator - 05/12/2023 11:10 AM EDT May 13, 2023 PID: [id number] Lyndsey Pandey [id number] [place] [address] Dear Ms. Pandey, We are pleased to [...] report will be kept on file at [facility] as part of your permanent medical record and are available for your continuing care. Thank you for allowing us to help in meeting your health care needs. Sincerely, Dr. Malloy Interpreting Radiologist [facility] (Normal over 40) [facility] Instructions* Patient Instructions* Rupali Sage APRN.ENMA - 05/10/2023 10:07 AM [...] calcium and are the major food contributors intM[facility] States. For example, 8oz of milk (whole, lowfat or skim) contains about 300mg calcium, 8oz of yogurt contains 415mg. Nondairy sources include salmon and sardines and vegetables, such as Faroese cabbage, kale, and broccoli. Foods fortified with [...] acid, calcium carbonate is found in some fwnu-hsz-eqeaycs antacid products, such as Tums and Rolaids [...] prescribed by your doctor. [facility] History of Present illness Narrative* Rupali Sage APRN.CNP - 05/10/2023 9:04 AM EDT Chinese Medicine Practitioner offered: Patient declines. Lyndsey is a 58 [...] L2 SAB0 IAB0 Ectopic0 Multiple0 Live Births0 Spin Instructor History LMP: Postmenopausal Age at Menarche: 13 Age at First : Age at Menopause: 45 Spin Instructor History Comments: Sexual Activity: Not Currently; Male [...] external genitalia normal, normal Bartholin's glands, urethra, Paonia's glands, no vulvar lesions, no cervical lesions, [...] date with screening BMD: osteopenia, managed by electrical and instrument engineer 2. Vulvovaginal itching - ICD9: 698.1, ICD10: [...] results. Rupali Sage APRN.CNP documented in [facility] encounter[facility] Miscellaneous Notes* Telephone Encounter - Danielle Mahajan RN - 04/23/2023 10:35 AM EDT PSS: Please contact patient to schedule mammogram. Thank you. * Telephone Encounter - Rupali Sage APRN.CNP - 04/23/2023 10:32 AM EDT Order filed. Please notify pt. Rupali Sage APRN.CNP * Telephone Encounter - Danielle Mahajan RN - 04/23/2023 10:18 AM EDT Patient has upcoming annual exam on 05/10. Please file pended order. Danielle Mahajan RN * Telephone Encounter - Josselin Burgos - 04/23/2023 10:15 AM EDT Pt asking for mammo orders. Please call to schedule when placed. documented in this encounter[facility]23 Discharge summary Author Leticia Mehta [facility] 2023 10:01am Note Date/Time January 12, 2023 11:4 7am [facility] [address] [place] [address]. [address] [place] [address] / REHABILITATION SERVICES DISCHARGE SUMMARY MR#: [id number] Acct: [id number] Name: LYNDSEY PANDEY Rep #: [id number] [...] please feel free to call me at [phone]. Thank you for the referral of thispatient. Sincerely, FABI Herrera Balance/Gait/Functional tests - Balance/Special Test Scores Lower Extremity Functional Score: 72 <Electronically signed by Leticia Mehta MPT> 01/13/23 1001 CC: AMISHA Brooks; PHOEBE Capone ~ Signed [facility] Work Phone: Evaluation noteNo assessment information available [facility] Work Phone: Evaluation note* Diagnosis Encounter for screening mammogram for malignant neoplasm of breast- Primary Other screening mammogram [facility] Diagnosis Encounter for gynecological examination with abnormal finding- Primary Routine gynecological examination Vulvovaginal itching Pruritus of genital organs Postmenopausal atrophic vaginitis Encounter for screening for human papillomavirus (HPV) Special screening examination for human papillomavirus (HPV) Pap smear for cervical cancer screening Screening for malignant neoplasm of the cervix Encounter for screening mammogram for breast cancer [facility] Diagnosis Encounter for gynecological examination (general) (routine) without abnormal findings- Primary Encounter for screening mammogram for breast cancer documented [facility] this [facility] Diagnosis Encounter for screening mammogram for malignant neoplasm of breast Other screening mammogram documented in this encounter [facility] note* Diagnosis Left shoulder pain, unspecified chronicity- Primary Left shoulder pain, unspecified chronicity [facility] Diagnosis Left shoulder pain, unspecified chronicity [facility]* Diagnosis Encounter for screening mammogram for malignant neoplasm of breast- Primary Other screening mammogram documented in this encounter [facility]* Diagnosis Acute pain of left shoulder- Primary documented in this encounter [facility] for referral (narrative)* Diagnostic Procedure Only (Routine) - Authorized Specialty Diagnoses / Procedures Referred By Contgalen t Referred To Contact [facility] Diagnoses Encounter for screening mammogram for malignant neoplasm of breast Procedures JHONATAN SCREENING W GLORIA SCREENING DIGITAL BREAST TOMOSYNTHESIS BI SCREENING MAMMOGRAPHY BI 2-VIEW BREAST INC Rupali Bee, CULL GRADER.FISH HATCHERY SUPERINTENDENT [address] [place] [address] [facility] [address] [place] [address] Referral ID Status Reason Start Date Expiration Date Visits Requested Visits Authorized [id number] Authorized Auto-Generat ed Referral 04/23/2023 05/22/2024 1 1 [facility] for referral (narrative)* Diagnostic Procedure Only (Routine) - Pending Review Specialty Diagnoses / Procedures Referred By Contac t Referred To Contact [facility] Diagnoses Encounter for gynecological examination with abnormal finding Encounter for screening mammogram for breast cancer Procedures JHONATAN SCREENING W GLORIA SCREENING DIGITAL BREAST TOMOSYNTHESIS BI SCREENING MAMMOGRAPHY BI 2-VIEW BREAST INC Rupali Bee APRN.CNP [address] [place] [address] [facility] [address] [place] [address] Referral ID Status Reason Start Date Expiration Date Visits Requested Visits Authorized [id number] Pending Review Auto-Generat ed Referral 05/10/2023 06/08/2024 1 1 [facility] for referral (narrative)* Diagnostic Procedure Only (Routine) - Authorized Specialty Diagnoses / Procedures Referred By Contac t Referred To Contact [facility] Diagnoses Encounter for gynecological examination (general) (routine) without abnormal findings Encounter for screening mammogram for breast cancer Procedures JHONATAN SCREENING W GLORIA SCREENING DIGITAL BREAST TOMOSYNTHESIS BI SCREENING MAMMOGRAPHY BI 2-VIEW BREAST INC Rupali Bee APRN.FISH HATCHERY SUPERINTENDENT [address] [place] [address] [facility] [address] [place] [address] Referral ID Status Reason Start Date Expiration Date Visits Requested Visits Authorized [id number] Authorized Auto-Generat ed Referral 07/11/2024 08/10/2025 1 1 [facility])* Diagnostic Procedure Only (Routine) - Closed Specialty Diagnoses / Procedures Referred By Akila wade Referred To Contact [facility] Diagnoses Encounter for screening mammogram for malignant neoplasm of breast Procedures JHONATAN SCREENING W GLORIA SCREENING DIGITAL BREAST TOMOSYNTHESIS BI SCREENING MAMMOGRAPHY BI 2-VIEW BREAST INC Rupali Bee APRN.CNP [address] [place] [address] [facility] [address] [place] [id number] Referral ID Status Reason Start Date Expiration Date V isits Requested Visits Authorized [id number] Closed Auto-Generate d Referral 04/24/2024 05/24/2025 1 1 [facility] for referral (narrative)No reason for referral information availableWSelect [facility] Work Phone: Reason for visit Narrative* Diagnostic Procedure Only (Routine) - Closed Specialty Diagnoses / Procedures Referred By Akila wade Referred To Contact [facility] Diagnoses Encounter for screening mammogram for malignant neoplasm of breast Procedures JHONATAN SCREENING W GLORIA SCREENING DIGITAL BREAST TOMOSYNTHESIS BI SCREENING MAMMOGRAPHY BI 2-VIEW BREAST INC Rupali Bee APRN.FISH HATCHERY SUPERINTENDENT [address] [place] [address] [facility] [address] [place] [address] Referral ID Status Reason Start Date Expiration Date V isits Requested Visits Authorized [id number] Closed Auto-Generate d Referral 04/24/2024 05/24/2025 1 1 [facility] Summary Purpose Family History Relationship Condition Age at Onset Recorded Date/T [...] l Uncle. Paternal Aunt. melanoma Advance Directives Advance Directive Response Recorded Date/ Time Advance Directives Yes July 2:29pm Living Will Yes June 16, 2018 9:42am Power of Nutrition Services Aide Yes June 16 9:42am Advance Directive Response Recorded Date/ Time Advance Directives Yes July 1:29pm Living Will Yes June 16, 2018 8:42am Power of Nutrition Services Aide Yes June 16 8:42am Advance Directive Response Recorded Date/ Time Advance Directives Yes July 1:29pm Living Will No October 02, 2 022 9:03am Power of Nutrition Services Aide No October 02, 2022 9:03am Advance Directive Response Recorded Date/ Time Advance Directives Yes July 2:29pm Living Will No October 02, 2 022 10:03am Power of Nutrition Services Aide No October 02, 2022 10:03am Advance Directive Response Recorded Date/ Time Advance Directives Yes July 1:29pm Living Will No November 02, 2 023 2:23pm Power of Nutrition Services Aide No November 02, 2023 2:23pm Advance Directive Response Recorded Date/ Time Advance Directives Yes July 2:29pm Living Will No November 02, 2 023 3:23pm Power of Nutrition Services Aide No November 02, 2023 3:23pm Advance Directive [...] MD [address] [place] [address] Referral ID Status Reason Start Date Expiration Date V isits Requested Visits Authorized [id number] New Request 09/11/2024 10/06/2025 1 1 Additional Source Comments INFORMATION SOURCE (unrecogn ized section and content) DATE CREATED AUTHOR 09/22/2021 [facility] DATE CREATED AUTHOR AUTHOR'S ORGANIZ ATION 08/18/2022 [facility] DATE CREATED AUTHOR AUTHOR'S ORGANIZ ATION 09/12/2024 [facility] DATE CREATED AUTHOR AUTHOR'S ORGANIZ ATION 03/15/2025 [facility] DATE CREATED AUTHOR AUTHOR'S ORGANIZ ATION 05/10/2025 [facility] Goals (unrecognized section and content) Goals may [...] Status: Active Member Role Status Dates Damari SANDHU, PA-C Family Provider Active PHOEBE Mackey Primary [...] Primary Care Provider Active Dr. River Dai , DO Attending Provider Active Team Status: Inactive Member Role Status Dates PHOEBE Mackey Primary Care Provider Active Dr. River Dai , DO Attending Provider Active Team Status: Inactive Member Role Status Dates PHOEBE Mackey Primary Care Provider Active Dr. River Dai , DO Attending Provider, Referring Provider Active Brass Roller Relationship Specialty Start Date End Date Damari Henson PA-C PCP - General Family Medicine 09/13/16 Brass Roller Relationship Specialty Start Date End Date Damari Henson PA-C PCP - General Family Medicine 09/13/16 Brass Roller Relationship Specialty Start Date End Date Damari Henson PA-C PCP - General Family Medicine 09/13/16 Brass Roller Relationship Specialty Start Date End Date Damari Henson PA-C PCP - General Family Medicine 09/13/16 Team Status: Active Member Role Status Dates PHOEBE Mackey Primary Care Provider Active Dr. Mg Brooks , DPM Attending Provider, Referrin g Provider Active Team Status: Inactive Member Role Status Dates PHOEBE Mackey Primary Care Provider, Attending Pro vider Active Brass Roller Relationship Specialty Start Date End Date Damari Henson PA-C PCP - General Family Medicine 09/13/16 Brass Roller Relationship Specialty Start Date End Date Damari Henson PA-C PCP - General Family Medicine 09/13/16 Brass Roller Relationship Specialty Start Date End Date Damari Henson PA-C PCP - General Family Medicine 09/13/16 Brass Roller Relationship Specialty Start Date End Date Sonya HensonHEATH CharlesC PCP - General Family Medicine 09/13/16 Team Status: Inactive Member Role Status Dates PHOEBE Mackey Primary Care Provider Active S tart: October 31, 2024 End: October 31, 2024 Dr. River Dai DO Attending Provider Active Start: October 31, [...] February 09, 2025 End: February 09, 2025 Brass Roller Relationship Specialty Start Date End Date Jhon Capone [address] [place] [address] [place] [address] PCP - General Family Medicine 03/07/25 Team Status: Active Member Role/Relationship Status Dates Damari SANDHU PA-C Family Provider Active PHOEBE Mackey Primary Care Provider Active Team Status: Inactive Member Role/Relationship Status Dates PHOEBE Mackey Primary Care Provider Active S tart: February 09, 2025 End: February 09, 2025 Dr. River Dai DO Attending Provider Active Start: February 09, 2025 End: February 09, 2025 Dr. Rivre Dai DO Referring Provider Active Start: February 09, 2025 End: February 09, 2025 Team Status: Inactive Member Role/Relationship Status Dates PHOEBE Mackey Primary Care Provider Active S tart: May 05, 2025 End: May 05, 2025 Maria Teresa SANDHU PA Attending Provider Active Start: May 05, 2025 End: May 05, 2025 Maria Teresa SANDHU PA Referring Provider Active Start: May 05, 2025 End: May 05, 2025 Source Comments (unrecognize d section and content) In the event this informatio n is protected by the Federal Confidentiality of Alcohol and Drug Abuse Patient Records regulations: The Federal rules restrict any use of the information to criminally investigate or prosecute any alcohol or drug abuse patient.[facility] the event this information is protected by the Federal Confidentiality of Alcohol and Drug Abuse Patient Records regulations: The Federal rules restrict any use of the information to criminally investigate or prosecute any alcohol or drug abuse patient.[facility] Center[facility] the event this information is protected by the Federal Confidentiality of Alcohol and Drug Abuse Patient Records regulations: The Federal rules restrict any use of the information to criminally investigate or prosecute any alcohol or drug abuse patient.[facility] Center[facility] the event this information is protected by the Federal Confidentiality of Alcohol and Drug Abuse Patient Records regulations: The Federal rules restrict any use of the information to criminally investigate or prosecute any alcohol or drug abuse patient.[facility] CenterIn the event this information is protected by the Federal Confidentiality of Alcohol and Drug Abuse Patient Records regulations: The Federal rules restrict any use of the information to criminally investigate or prosecute any alcohol or drug abuse patient.[facility] Center[facility] the event this information is protected by the Federal Confidentiality of Alcohol and Drug Abuse Patient Records regulations: The Federal rules restrict any use of the information to criminally investigate or prosecute any alcohol or drug abuse patient.[facility] CenterIn the event this information is protected by the Federal Confidentiality of Alcohol and Drug Abuse Patient Records regulations: The Federal rules restrict any use of the information to criminally investigate or prosecute any alcohol or drug abuse patient.[facility] Center[facility] the event this information is protected by the Federal Confidentiality of Alcohol and Drug Abuse Patient Records regulations: The Federal rules restrict any use of the information to criminally investigate or prosecute any alcohol or drug abuse patient.[facility] CenterIn the event this information is protected by the Federal Confidentiality of Alcohol and Drug Abuse Patient Records regulations: The Federal rules restrict any use of the information to criminally investigate or prosecute any alcohol or drug abuse patient.[facility] Reason for Visit (unrecogniz ed [...] arthritis Specialty Diagnoses / Procedures Referred By Contac t Referred To Contact Diagnoses Left shoulder pain, unspecified chronicity Procedures XR SHOULDER LEFT 2+ VIEWS Alondra Little MD [address] [place] [address] [address] [place] [address] Referral ID Status Reason Start Date Expiration Date V isits Requested Visits Authorized [id number] New Request 09/11/2024 10/06/2025 1 1 Reason [...] BE BASED ON THE PRIMARY CLINICAL RECORDS. [facility]. provides no warranty or guarantee of the accuracy or completeness of information in this document.
[2025-06-23 09:01] LABS: AST(SGOT) 36 U/L (<=31); Alanine Aminotransfer ALT/SGPT 43 U/L (<=34); Albumin, Serum 4.2 g/dL (3.4-4.8); Alkaline Phosphatase 98 U/L (35-104); Bilirubin, Direct 0.27 mg/dL (0.00-0.30); Globulin 2.5 g/dL (2.2-4.2)
== END | disposition home or self-care (01) ==
LOC: LAB 07:40
PROVIDERS: Referring Provider Physician Assistant; Visit Provider Physician Assistant
DX: R74.8 Abnormal levels of other serum enzymes (principal)
CPT/HCPCS: 36415; 80076

== ENCOUNTER → 2025-07-10 | Outpatient (CLI) | payer BC, SELFPAY ==
--- NOTE | 2025-07-10 07:36 | US_ITS ---
PROCEDURE: ABDOMEN LIMITED 07/10/2025 REASON FOR EXAM: ELEVATED LIVER ENZYMES TECHNIQUE: Procedure Code: USABDL Modality: US Procedure: ABDOMEN LIMITED COMPARISON: None. FINDINGS: Liver: Diffusely echogenic suggesting fatty infiltration. The liver is mildly enlarged measuring 16.6 cm in vertical dimension in the midclavicular line. Gallbladder: Surgically absent. Common bile duct: 6 mm Pancreas: Visualized portions are sonographically unremarkable. Other: Visualized portions of the right kidney are unremarkable. The right kidney measures 11.6 x 4.7 x 4.5 cm, with a cortical thickness of 1.7 cm. No right upper quadrant ascites. US/Abdomen Limited IMPRESSION: 1. Enlarged fatty liver. 2. Other findings as noted. Reading Location: [id number]
== END | disposition home or self-care (01) ==
LOC: US 07:34
DX: R74.8 Abnormal levels of other serum enzymes (principal)
CPT/HCPCS: 76705

== ENCOUNTER → 2025-08-10 | Outpatient (CLI) | payer BC, SELFPAY ==
[2025-08-10 16:22] LABS: PTHIN 47 pg/mL (11-61)
[2025-08-10 16:26] LABS: AST(SGOT) 32 U/L (<=31); Alanine Aminotransfer ALT/SGPT 30 U/L (<=34); Albumin, Serum 4.3 g/dL (3.4-4.8); Alkaline Phosphatase 95 U/L (35-104); Anion Gap 11 (5-15); BUN 15 mg/dL (4-19); BUN/Creat Ratio 16.4 RATIO (10-20); Calcium,Total 9.1 mg/dL (7.6-11.0); Carbon Dioxide 23.8 mmol/L (21.0-32.0); Chloride 103 mmol/L (98-108); Globulin 2.3 g/dL (2.2-4.2); Glucose 138 mg/dL (70-99); Potassium 3.9 mmol/L (3.3-5.1)
== END | disposition home or self-care (01) ==
LOC: LAB 15:47
PROVIDERS: Referring Provider Physician Assistant; Visit Provider Physician Assistant
DX: E11.65 Type 2 diabetes mellitus with hyperglycemia (principal); E21.1 Secondary hyperparathyroidism, not elsewhere classified
CPT/HCPCS: 36415; 80053; 83036; 83970

== ENCOUNTER → 2025-10-27 | Outpatient (CLI) | payer BC, SELFPAY ==
--- OUTSIDE RECORDS SUMMARY | 2025-10-27 07:28 | XMS RPT_ITS | CCD ---
Author Organization [facility] Care Team Providers Care Small Animal Caretaker Name Role Phone LindseyLinsey newell Unavailable Cristobal Ewing Unavailable DARRELL BALLESTEROS Primary Care Unavailable DARRELL BALLESTEROS Attending Unavailable ESTELITA, CHARLENE PA-C Consulting Unavailable DARRELL BALLESTEROS Admitting Unavailable PROVIDER, UNKNOWN Consulting Unavailable CAPONE, CHARLENE PA-C Consulting Unavailable PIMENTEL, MARIA TERESA PAC Admitting Unavailable [facility] PAC Primary Care Unavailable [facility] MARIA TERESA PAC Attending Unavailable PROVIDER, UNKNOWN Consulting Unavailable ESTELITA, CHARLENE PA-C Consulting Unavailable MELANIE RIVER G Attending Unavailable MELANIE, RIVER G Admitting Unavailable WIETECHA, RIVER G Primary Care Unavailable PROVIDER, UNKNOWN Consulting Unavailable [facility] MARIA TERESA PAC Admitting Unavailable [facility] MARIA TERESA PAC Primary Care Unavailable PIMENTEL, MARIA TERESA PAC Attending Unavailable CAPONE, CHARLENE PA-C Consulting Unavailable PROVIDER, UNKNOWN Consulting Unavailable ESTELITA, CHARLENE PA-C Consulting Unavailable STORMYETEPERFECTO, RIVER G Primary Care Unavailable MELANIE RIVER G Attending Unavailable STORMYETEPERFECTO, RIVER G Admitting Unavailable PROVIDER, UNKNOWN Consulting Unavailable ESTELITA, CHARLENE PA-C Consulting Unavailable STORMYETEPERFECTO, RIVER G Primary Care Unavailable MELANIE RIVER G Attending Unavailable MELANIE, RIVER G Admitting Unavailable PROVIDER, UNKNOWN Consulting Unavailable ESTELITA, CHARLENE PA-C Consulting Unavailable STORMYETEPERFECTO, RIVER G Primary Care Unavailable MELANIE, RIVER G Attending Unavailable MELANIE, RIVER G Admitting Unavailable PROVIDER, UNKNOWN Consulting Unavailable Damari Henson PA-C Primary Care Provider Charlene Capone PA-C Unavailable [phone] Orthopedic Provider Unavailable Unavailable [facility], . Unavailable Neuro-Surgery Provider Unavailable Unavailab martha Sherwood MD ([place]), Dr. Kyle Unavailable Livia MCCAIN, Dr. Salas Unavailable Endocrinology Provider Unavailable Unavailab martha Bridges MD, Yolanda Ignacio Unavailable Damari Henson PA-C Unavailable Lucy ACCESS LEAD, Madison Unavailable Mary Benito Unavailable Donis RN, Pam Unavailable Vess ACCESS LEAD, Tex Crawford Unavailable Unavailable Nereyda GIMENEZ, Violet Junior Unavailable Unavailable Tegan ACCESS LEAD, Yolanda M Unavailable Unavailab martha Valladares ACCESS LEAD, Naa Unavailable Unavailabl arlyn Kebede PA-C, Patti Rothman Unavailable Damari Tijerina RN Unavailable Unavaila ble Zabala ACCESS LEAD, Karen Unavailable Unavailable Yusuf ACCESS LEAD, Chely Unavailable Unavailable Marthey ACCESS LEAD, Valerie Unavailable Unavailable Puente ACCESS LEAD, Amanda Unavailable Unavailable Ganesh SIBLEY, Avril Unavailable Unavailable Girish PANDA, Wiliam Ignacio Unavailable Deng SIBELY, Chely Unavailable Unavailable Piyush SIBLEY, Itzel Unavailable Unavailable Unavailable Unavailable Anand SIBLEY, Dania Unavailable Unavailable Damari Henson PA-C Primary Care Provider Unavailable Primary Care Provider Unavailabl e ALONDRA LITTLE Attending Unavailable SELF, SELF Referring Unavailable ALONDRA LITTLE Referring Unavailable ALONDRA LITTLE Attending Unavailable Danisha Lal Unavailable Unavailable Hyacinth Mahajan Unavailable Unavailable Charlene De La Cruz Primary Care Provider Melanie BARTON, Dr. Holman Attending Provider Melanie BARTON, Dr. Holman Referring Provider Charlene Capone Primary Care Provider Charlene De La Cruz Primary Care Provider Dr. River Dai DO Attending Provider Dr. River Dai DO Referring Provider Maria Teresa Dooley Attending Provider Margarito SANDHU, Maria Teresa Referring Provider Capone PA, Charlene Primary Care Provider Capone PA, Charlene Primary Care Physician Maria Teresa Dooley Attending Physician [phone] Capone PA, Charlene Attending Physician Capone PA, Charlene Referring Provider CAPONE, CHARLENE Primary Care Unavailable RUPALI SAGE Referring Unavailable RAISSA GRIFFITH Attending Unavailable CAPONE, CHARLENE Primary Care Unavailable Assessment, Health Risk Attending Unavaila William Dubon Primary Care Unavaila moira SANDHU, Maria Teresa Attending Unavailable Margarito SANDHU, Referring Unavailable Capone, Charlene Primary Care Unavailable Capone, Charlene Primary Care Unavailable Capone, Charlene Attending Unavailable Capone, Charlene Referring Unavailable Margarito SANDHU, Attending Unavailable Margarito SANDHU, Referring Unavailable Capone, Charlene Primary Care Unavailable Margarito SANDHU, Attending Unavailable Margarito SANDHU, Referring Unavailable Capone, Charlene Primary Care Unavailable River Dai Attending Unavailable WietechaRiver Referring Unavailable Capone, Charlene Primary Care Unavailable River Dai Attending Unavailable [place] River Referring Unavailable Capone, Charlene Primary Care Unavailable Allergies Allergy Classification Reported Allergen(s) Allergy Type Date of Onset Reaction(s) Facility NEGATED: Highlighted row has been ruled out! (1 source) 01-28-2022 [facility] [place] [employer] [employer] NEGATED: Highlighted row has been ruled out! (1 source) [facility] [place] [facility] [employer] NEGATED: Highlighted row has been ruled out! (1 source) 01-28-2022 [facility] [place] [employer] NEGATED: Highlighted row has been ruled out! (1 source) [facility] [place] [employer] [employer] NEGATED: Highlighted row has been ruled out! (1 source) 01-28-2022 [employer] [place] NEGATED: Highlighted row has been ruled out! (1 source) [facility] NEGATED: Highlighted row has been ruled out! (1 source) 01-28-2022 [facility] NEGATED: Highlighted row has been ruled out! (1 source) [facility] NEGATED: Highlighted row has been ruled out! (1 source) 01-28-2022 [facility] NEGATED: Highlighted row has been ruled out! (1 source) [facility] NEGATED: Highlighted row has been ruled out! (1 source) 01-28-2022 [facility] NEGATED: Highlighted row has been ruled out! (1 source) [facility] NEGATED: Highlighted row has been ruled out! (1 source) 01-28-2022 [facility] NEGATED: Highlighted row has been ruled out! (1 source) [facility] NEGATED: Highlighted row has been ruled out! (1 source) 01-28-2022 [facility] NEGATED: Highlighted row has been ruled out! (1 source) [facility] NEGATED: Highlighted row has been ruled out! (1 source) 01-28-2022 [facility] NEGATED: Highlighted row has been ruled out! (1 source) [facility] NEGATED: Highlighted row has been ruled out! (1 source) 01-28-2022 [facility] NEGATED: Highlighted row has been ruled out! (1 source) [facility] NEGATED: Highlighted row has been ruled out! (1 source) 01-28-2022 [facility] NEGATED: Highlighted row has been ruled out! (1 source) [facility] NEGATED: Highlighted row has been ruled out! (1 source) 01-28-2022 [facility] NEGATED: Highlighted row has been ruled out! (1 source) [facility] NEGATED: Highlighted row has been ruled out! (1 source) 01-28-2022 [facility] NEGATED: Highlighted row has been ruled out! (1 source) [facility] NEGATED: Highlighted row has been ruled out! (1 source) 01-28-2022 [facility] NEGATED: Highlighted row has been ruled out! (1 source) [facility] NEGATED: Highlighted row has been ruled out! (1 source) 01-28-2022 [facility] NEGATED: Highlighted row has been ruled out! (1 source) [facility] NEGATED: Highlighted row has been ruled out! (1 source) 01-28-2022 [facility] NEGATED: Highlighted row has been ruled out! (1 source) [facility] NEGATED: Highlighted row has been ruled out! (1 source) 01-28-2022 [facility] NEGATED: Highlighted row has been ruled out! (1 source) [facility] NEGATED: Highlighted row has been ruled out! (1 source) 01-28-2022 [facility] NEGATED: Highlighted row has been ruled out! (1 source) [facility] NEGATED: Highlighted row has been ruled out! (1 source) 01-28-2022 [facility] NEGATED: Highlighted row has been ruled out! (1 source) [facility] NEGATED: Highlighted row has been ruled out! (1 source) 01-28-2022 [facility] NEGATED: Highlighted row has been ruled out! (1 source) [facility] NEGATED: Highlighted row has been ruled out! (1 source) 01-28-2022 [facility] NEGATED: Highlighted row has been ruled out! (1 source) [facility] NEGATED: Highlighted row has been ruled out! (1 source) 01-28-2022 [facility] NEGATED: Highlighted row has been ruled out! (1 source) [facility] NEGATED: Highlighted row has been ruled out! (1 source) 01-28-2022 [facility] NEGATED: Highlighted row has been ruled out! (1 source) [facility] NEGATED: Highlighted row has been ruled out! (1 source) 01-28-2022 [facility] NEGATED: Highlighted row has been ruled out! (1 source) [facility] NEGATED: Highlighted row has been ruled out! (1 source) 01-28-2022 [facility] NEGATED: Highlighted row has been ruled out! (1 source) [facility] NEGATED: Highlighted row has been ruled out! (1 source) 01-28-2022 [facility] NEGATED: Highlighted row has been ruled out! (1 source) [facility] NEGATED: Highlighted row has been ruled out! (1 source) 01-28-2022 [facility] NEGATED: Highlighted row has been ruled out! (1 source) [facility] NEGATED: Highlighted row has been ruled out! (1 source) 01-28-2022 [facility] NEGATED: Highlighted row has been ruled out! (1 source) [facility] NEGATED: Highlighted row has been ruled out! (1 source) 01-28-2022 [facility] NEGATED: Highlighted row has been ruled out! (1 source) [facility] NEGATED: Highlighted row has been ruled out! (1 source) 01-28-2022 [facility] NEGATED: Highlighted row has been ruled out! (1 source) [facility] NEGATED: Highlighted row has been ruled out! (1 source) 01-28-2022 [facility] NEGATED: Highlighted row has been ruled out! (1 source) [facility] NEGATED: Highlighted row has been ruled out! (1 source) 01-28-2022 [facility] NEGATED: Highlighted row has been ruled out! (1 source) [facility] NEGATED: Highlighted row has been ruled out! (1 source) 01-28-2022 [facility] NEGATED: Highlighted row has been ruled out! (1 source) [facility] NEGATED: Highlighted row has been ruled out! (1 source) 01-28-2022 [facility] NEGATED: Highlighted row has been ruled out! (1 source) [facility] NEGATED: Highlighted row has been ruled out! (1 source) 01-28-2022 [facility] NEGATED: Highlighted row has been ruled out! (1 source) [facility] NEGATED: Highlighted row has been ruled out! (1 source) 01-28-2022 [facility] NEGATED: Highlighted row has been ruled out! (1 source) [facility] NEGATED: Highlighted row has been ruled out! (1 source) 01-28-2022 [facility] NEGATED: Highlighted row has been ruled out! (1 source) [facility] NEGATED: Highlighted row has been ruled out! (1 source) 01-28-2022 [facility] NEGATED: Highlighted row has been ruled out! (1 source) [facility] NEGATED: Highlighted row has been ruled out! (1 source) 01-28-2022 [facility] NEGATED: Highlighted row has been ruled out! (1 source) [facility] NEGATED: Highlighted row has been ruled out! (1 source) 01-28-2022 [facility] NEGATED: Highlighted row has been ruled out! (1 source) [facility] NEGATED: Highlighted row has been ruled out! (1 source) 01-28-2022 [facility] NEGATED: Highlighted row has been ruled out! (1 source) [facility] NEGATED: Highlighted row has been ruled out! (1 source) 01-28-2022 [facility] NEGATED: Highlighted row has been ruled out! (1 source) [facility] NEGATED: Highlighted row has been ruled out! (1 source) 01-28-2022 [facility] NEGATED: Highlighted row has been ruled out! (1 source) [facility] NEGATED: Highlighted row has been ruled out! (1 source) 01-28-2022 [facility] NEGATED: Highlighted row has been ruled out! (1 source) [facility] NEGATED: Highlighted row has been ruled out! (1 source) 01-28-2022 [facility] NEGATED: Highlighted row has been ruled out! (1 source) [facility] NEGATED: Highlighted row has been ruled out! (1 source) 01-28-2022 [facility] NEGATED: Highlighted row has been ruled out! (1 source) [facility] NEGATED: Highlighted row has been ruled out! (1 source) 01-28-2022 [facility] NEGATED: Highlighted row has been ruled out! (1 source) [facility] NEGATED: Highlighted row has been ruled out! (1 source) 01-28-2022 [facility] NEGATED: Highlighted row has been ruled out! (1 source) [facility] NEGATED: Highlighted row has been ruled out! (1 source) 01-28-2022 [facility] NEGATED: Highlighted row has been ruled out! (1 source) [facility] NEGATED: Highlighted row has been ruled out! (1 source) 01-28-2022 [employer] NEGATED: Highlighted row has been ruled out! (1 source) [employer] NEGATED: Highlighted row has been ruled out! (1 source) 01-28-2022 [employer] NEGATED: Highlighted row has been ruled out! (1 source) [employer] NEGATED: Highlighted row has been ruled out! (1 source) 01-28-2022 [employer] NEGATED: Highlighted row has been ruled out! (1 source) [employer] Medications Current Medications Medication Drug Class(es) Dates Sig (Normalized) Sig (Original) acetaminophen 325 mg / oxyCODONE hydrochloride 5 mg oral tablet (15 sources) Opioid Agonist Start: 11-12-2023 take 1 tablet by mouth every six hours as needed for pain Start: 10-09-2022 take 1 tablet by tasha th every six hours Oxycodone-Acetaminophen (Percocet) 5-325 mg tablet Active 1 - 2 TABLET PO EVERY 6 HOURS 28 October 09, 2022 Start: 06-21-2018 take 1 tablet by tasha th four times daily as needed Oxycodone-Acetaminophen Active 1 - 2 TABLET PO 4 TIMES DAILY NEEDED 40 5 June 21, 2018 2:43pm amoxicillin 500 mg / clavula sampson 125 mg oral tablet (20 sources) Penicillin-class Antibacterial Start: 11-12-2023 Start: 10-09-2022 take 1 tablet by tasha th every twelve hours Amoxicillin-Pot Clavulanate (Augmentin) 500-125 mg tablet Active 1 TABLET PO Q12H October 09, 2022 12:00am Start: 01-28-2022 End: 02-07-2022 Start: 12-17-2020 End: 12-27-2020 apixaban 2.5 mg oral tablet (12 sources) Factor Xa Inhibitor Start: 11-12-2023 take 1 tablet by mouth every twelve hours Start: 10-09-2022 take 1 tablet by tasha th twice daily Apixaban (Eliquis) 2.5 mg tablet Active 2.5 MG PO TWICE A DAY 60 October 09, 2022 12:00am atenolol 100 mg oral tablet (20 sources) beta-Adrenergic Anabel Start: 02-26-2025 Start: 10-25-2023 Start: 06-27-2016 take 100 mg by mouth once alfredo y Atenolol Active 100 MG PO DAILY June 27, 2016 12:00am Start: 06-01-2016 ATENOLOL 50 MG TABS ATENOLOL [id number] Cristobal Ewing Start: 12-11-2009 take 2 tablets by mo [facility] once daily Comment on above: Take 100 mg by mouth once daily. 24 hr buPROPion hydrochlorid e 150 mg extended release oral tablet (20 sources) Aminoketone Start: 06-26-2025 Start: 06-26-2025 Start: 12-27-2024 Start: 12-07-2024 Start: 07-20-2024 Start: 09-23-2023 Start: 06-01-2016 take 1 tablet by mouth once da analisa Start: 09-08-2012 End: 09-15-2012 Start: 05-16-2012 End: 09-08-2012 Comment on above: Take 100 mg by mouth once daily. calcium carbonate 1500 mg oral tablet (20 sources) calcium carbonate/vitamin D2 ([id number]-264-T ORAL) (9 sources) take 1 tablet by mouth once daily calcium carbonate/vitamin D2 ([id number]-189-B ORAL) Take 1 tablet by mouth once daily. Active take 1 tablet by mouth once alfredo y calcium carbonate/vitamin D2 ([id number]-H ORAL) Take 1 tablet by mouth once daily. 0 Active Comment on above: Take 1 tablet by [facility] once daily. cefadroxil 500 mg oral [...] take 1 tablet by mouth once daily Comment on above: Take by mouth. Dulaglutide (Trulicity) 4.5 MG/0.5ML Solution Auto-injector (2 sources) Dulaglutide (Trulicity) 4.5 MG/0.5ML Solution Auto-injector Inject under the skin once a week. Active Lactobacillus Combination No.4 (Probiotic) 3 billion cell Capsule (13 sources) Start: 10-02-2022 take 3 capsules by mouth once daily Start: 10-02-2022 take 3 capsules by m [...] 7 days. 42 tablet 09/11/2024 09/18/2024 Active Chandler 3-6-9 capsule (2 sources) take 3-6 capsules by mouth once daily Chandler 3-6-9 capsule Take by mouth daily. Active [...] tablet 09/11/2024 Active rosuvastatin calcium 40 mg oral tablet (20 sources) HMG-CoA Reductase Inhibitor Start: 10-02-2022 take 1 tablet by mouth once daily Comment on above: Take 40 mg by [...] 06-11-2020 TRULICITY 1.5 mg/0.5 mL Start: 09-17-2017 Start: 09-17-2017 inject 1.5 mg by sub [...] FLUOXETINE HCL 20 MG CAPS FLUOXETINE HCL [id number] Cristobal Ewing gemfibrozil 600 mg oral tablet (20 sources) Peroxisome Proliferator Receptor alpha Agonist Start: 06-01-2016 End: 09-07-2019 ibuprofen 800 mg oral tablet (18 sources) Nonsteroidal Anti-inflammatory Drug Start: 09-22-2017 End: 06-21-2018 take 1 tablet by mouth every eight hours as needed for pain Ibuprofen 800 MG tablet Discontinued 800 mg PO EVERY 8 HOURS NEEDED as needed for Mild-Mod Pain (-03/17) 30 September 22, 2017 5:30pm June 21, 2018 3:41pm take 1 tablet by tasha th every six hours as needed Ibuprofen (Advil) 200 MG tablet Take 1 tablet by mouth every 6 hours as needed for Mild Pain. Active INV VITAMIN D3 400 OR 4,000 UNIT (IRB [id number]) CAPSULE (2 sources) End: 05-10-2023 INV VITAMIN D3 400 OR 4,000 UNIT (IRB [id number]) CAPSULE Take 1 capsule by mouth one time only. 0 05/10/2023 Discontinued INV VITAMIN D3 4 00 OR 4,000 UNIT ([facility] [id number]) CAPSULE Take 1 capsule by mouth one time only. 0 Active Comment on above: Take 1 capsule by mo [facility] one time only. levoFLOXacin 500 mg oral [...] 06-01-2016 METFORMIN HCL ER (MOD) 500 MG [id number] 2 pills twice daily METFORMIN HCL [id number] Cristobal Ewing Start: 05-13-2016 End: 05-13-2016 Start: [...] Take by mouth as nee ded. omeprazole 20 mg delayed release oral capsule (20 sources) [...] Comment on above: Take 1 capsule by [facility] once daily. PEG [id number]-N ASULF (2 sources) Osmotic Laxative Start: 06-10-20 17 GOLYTELY 227.1 GM SOLR As directed PEG [id number]- NASULF [id number] Josue Bhakta MD promethazine hydrochloride 25 mg oral tablet (20 sources) Phenothiazine Start: 06-07-20 13 End: 08-30-20 13 raNITIdine 150 mg oral tablet (20 sources) Histamine-2 Receptor Antagonist Start: 10-26-20 12 End: 08-30-20 13 SITagliptin 100 mg oral tablet (20 sources) Dipeptidyl Peptidase 4 Inhibitor Start: 06-01-20 16 End: 05-10-20 23 take 1 tablet by mouth once daily Sitagliptin Phosphate 100 MG tablet Discontinued 100 mg PO DAILY June 27, 2016 12:00am April 19, 2018 1:47pm triamcinolone acetonide 0.25 mg/ml topical cream (20 sources) Corticosteroid Start: 07-18-20 End: 12-02-19 22 Start: 12-13-2019 Comment on above: Apply to [...] site] 10-19-2023 Episodic Other connective tissue disease (16 sources) Dupuytren's contracture; Translations: [Palmar fascial fibromatosis [Dupuytren]] 06-26-2018 Episodic Comment on above: Dupuytren's disease bilateral palms with painful nodularity Other connective tissue disease (11 sources) Calcaneal spur; Translations: [Calcaneal spur, right [...] leg] 08-13-2016 Episodic Other connective tissue disease (7 sources) Plantar fascial fibromatosis; Translations: [Plantar fascial fibromatosis] 11-12-2023 Episodic Other connective tissue disease (1 source) Calcaneal spur of right foot; Translations: [Calcaneal spur, right foot] 10-09-2022 Episodic Other gastrointestinal disorders (20 sources) Diarrhea; Translations: [Diarrhea, unspecified] 08-13-2016 Episodic Other inflammatory condition of skin (1 source) Pruritus of genital organs; Translations: [Pruritus vulvae] Episodic Other liver diseases (10 sources) Elevated liver enzymes level; Translations: [Abnormal levels of other serum enzymes] 06-25-2025 Episodic Other liver diseases (1 source) Abnormal levels of other serum enzymes; Translations: [Abnormal levels of other serum enzymes] Onset: Episodic Other nervous system disorders (2 sources) [...] paresthetica 08-13-2016 Chronic Other nervous system disorders (6 sources) Carpal tunnel syndrome of right wrist; Translations: [Carpal tunnel syndrome, right upper limb] 06-26-2018 Chronic Other nervous system disorders (20 sources) Paresthesia of hand ; Translations: [Paresthesia of skin] 06-26-2018 Episodic Other non-traumatic joint disorders (20 sources) Joint pain; Translations: [Pain in unspecified joint] 10-19-2023 Episodic Other nutritional; endocrine; and metabolic disorders [...] colonic polyps] Onset: 06-10-2017 06-10-2017 Episodic Other connective tissue disease (10 sources) Hand pain; Translations: [Pain in unspecified hand] Onset: 09-08-2017 09-09-2017 Episodic Other non-traumatic joint disorders (2 sources) Pain in left wrist; Translations: [Pain in left wrist] Onset: 07-27-2016 07-31-2016 Episodic Other non-traumatic joint disorders (6 sources) Pain in left shoulder; Translations: [Pain in joint, shoulder region] Onset: 09-11-2024 09-11-2024 Episodic Other skin disorders (11 sources) Granulomatosis; Translations: [Cyst of skin] Onset: 09-09-2017 09-09-2017 Episodic Unclassified (1 source) Patient encounter status 12-26-2024 Results Test Name Value Interpretation Reference Range Facility [facility] 08-15 [facility] * * *Final Report* * * DATE OF EXAM: Aug 15 2025 9:12AM MEENAKSHI [id number] - [facility] / PROCEDURE REASON: Encounter for screening mammogram for malignant neoplasm of breast * * * * Physician Interpretation * * * * RESULT: [address] [address] [place] [address] #[id number] - [facility] SCREENING [facility] HISTORY: 60 year-old patient presents for screening. Patient is asymptomatic in both breasts. Patient states no personal history of breast cancer. COMPARISON STUDIES: The present examination has been compared to prior imaging studies dated 08/15/2020 (mammogram), 10/03/2021 (mammogram), 05/10/2023 (mammogram) and 07/11/2024 (mammogram). MAMMOGRAM TECHNIQUE: The study was acquired using full field digital technology and interpreted from soft copy. Digital Breast Tomosynthesis (DBT) images were obtained and used to assist in the interpretation of this examination. MAMMOGRAM FINDINGS: There are scattered areas of fibroglandular density. No suspicious masses, calcifications or other abnormalities are seen in either breast. There are no significant interval changes. IMPRESSION: There is no mammographic evidence of malignancy in either breast. Routine screening mammogram is recommended. Annual mammogram will be due in 1 year. BI-RADS Category 1: Negative RISK: Based on the Tyrer-Cuzick (TC) risk assessment model, this patient has a 5.5% lifetime risk of developing breast cancer, meaning they are at average risk for developing breast cancer. However, this is only an estimate based on available history provided on the patient's questionnaire. We encourage all patients to talk with their providers about these results, further recommendations for managing breast health, and appropriate supplemental screening options if the patient has dense breast tissue. Interpreting Radiologist: Shanna Canas M.D. Electronically signed on: 08/18/2025 Staff Consultant: CHRIS Transcribe Date/Time: Aug 15 2025 9:04A Dictated by: SHANNA CANAS MD This examination was interpreted and the report reviewed and electronically signed by: SHANNA CANAS MD on Aug 18 2025 1:35PM EST [id number] CN Normal [facility] Metabolic Prof lupillo 08-14-2025 Albumin [Mass/Vol] 4.3 g/dL Normal 3.4-4.[address] [facility] Comment on above: Performed By: #### L 500.4050, L500.4100 #### [facility] [address] [place], [address] Albumin/Globulin [Mass ratio] 1.7 {ratio} Normal 0.9-2.4 [facility] Comment on above: Performed By: #### L 500.4050, L500.4100 #### [facility] [address] [place], [address] ALK PHOS 93 U/L Normal 35-104 [facility] Comment on above: Performed By: #### L 500.4050, L500.4100 #### [facility] [address] [place], [address] ALT [Catalytic activity/Vol] 30 U/L Normal <=34 [facility] Comment on above: Performed By: #### L 500.4050, L500.4100 #### [facility] [address] [place], [address] AST [Catalytic activity/Vol] 30 U/L Normal <=31 [facility] Comment on above: Performed By: #### L 500.4050, L500.4100 #### [facility] [address] [place], [address] Bilirubin [Mass/Vol] 0.47 mg/dL Normal 0.00-1.30 [facility] Comment on above: Performed By: #### L 500.4050, L500.4100 #### [facility] [address] [place], [address] BUN/CRE 11.4 RATIO Normal 10-20 [facility] Comment on above: Performed By: #### L 500.4050, L500.4100 #### [facility] [address] [place], [address] Calcium [Mass/Vol] 9.4 mg/dL Normal 7.6-11.[address] [facility] Comment on above: Performed By: #### L 500.4050, L500.4100 #### [facility] [address] [place], [address] Chloride [Moles/Vol] 105 mmol/L Normal 98-108 [facility] Comment on above: Performed By: #### L 500.4050, L500.4100 #### [facility] [address] [place], [address] CO2 [Moles/Vol] 26.5 mmol/L Normal 21.0-32.0 [facility] Comment on above: Performed By: #### L 500.4050, L500.4100 #### [facility] [address] [place], [address] Creatinine [Mass/Vol] 0.86 mg/dL Normal 0.70-1.20 [facility] Comment on above: Performed By: #### L 500.4050, L500.4100 #### [facility] [address] [place], [address] GAP 11 Normal 5-15 [facility] Comment on above: Performed By: #### L 500.4050, L500.4100 #### [facility] [address] [place], [address] GFR/1.73 sq M.predicted among non-blacks MDRD (S/P/Bld) [Vol rate/Area] 78 mL/min/{1.73_m2} Normal >60 [facility] Comment on above: Result Comment: mL/m in/1.73m2 CKD-EPI Creatinine Equation (2020) Performed By: #### L 500.4050, L500.4100 #### [facility] [address] [place], [address] Globulin (S) [Mass/Vol] 2.6 g/dL Normal 2.2-4.2 [facility] Comment on above: Performed By: #### L 500.4050, L500.4100 #### [facility] [address] [place], [address] Glucose [Mass/Vol] 140 mg/dL High 70-[address] [facility] Comment on above: Performed By: #### L 500.4050, L500.4100 #### [facility] [address] [place], [address] Potassium [Moles/Vol] 4.1 mmol/L Normal 3.3-5.1 [facility] Comment on above: Performed By: #### L 500.4050, L500.4100 #### [facility] [address] [place], [address] Sodium [Moles/Vol] 143 mmol/L Normal 133-[address] [facility] Comment on above: Performed By: #### L 500.4050, L500.4100 #### [facility] [address] [place], [address] T PROT 6.9 g/dL Normal 5.9-8.4 [facility] Comment on above: Performed By: #### L 500.4050, L500.4100 #### [facility] [address] [place], [address] Urea nitrogen [Mass/Vol] 10 mg/dL Normal 4-19 [facility] Comment on above: Performed By: #### L 500.4050, L500.4100 #### [facility] [address] [place], [address] Lipid Profileon 08-14-2025 CHOL:HDL 2.24 Normal [facility] Comment on above: Performed By: #### L 500.4050, L500.4100 #### [facility] [address] [place], [address] Cholesterol [Mass/Vol] 95 mg/dL Normal <=200 [facility] Comment on above: Result Comment: Chol esterol level, Desirable <200 mg/dL Borderline high cholesterol 200-239 mg/dL High cholesterol >=240 mg/dL Recommendations of the NCEP Adult Treatment Panel for the following risk-cutoff thresholds for the [place] population. Performed By: #### L 500.4050, L500.4100 #### [facility] [address] [place], [address] Cholesterol in HDL [Mass/Vol] 43 mg/dL Normal [facility] Comment on above: Result Comment: Amanda onal Cholesterol Education Program (NCEP) guidelines: <40 mg/dL: Low HDL-cholesterol (major risk factor for CHD) >= 60 mg/dL: High HDL-cholesterol (negative risk factor for CHD) HDL-cholesterol is affected by a number of factors, e.g. smoking, exercise, hormones, sex and age. Performed By: #### L 500.4050, L500.4100 #### [facility] [address] [place], [address] Cholesterol in LDL [Mass/Vol] 24 mg/dL Normal [facility] Comment on above: Result Comment: Bord suaycm=597-109 mg/dL Higher Jowu=624 mg/dL or greater Friedwald Equation for LDL-C Performed By: #### L 500.4050, L500.4100 #### [facility] [address] [place], [address] Cholesterol in VLDL [Mass/Vol] 29 mg/dL Normal 5-40 [facility] Comment on above: Performed By: #### L 500.4050, L500.4100 #### [facility] [address] [place], [address] Triglyceride [Mass/Vol] 146 mg/dL Normal [facility] Comment on above: Result Comment: The drugs N-Acetylcysteine and Metamizole may falsely depress this assay. Normal range: <150 mg/dL Borderline High: 150-199 mg/dL High: 200-499 mg/dL Very High: >500 mg/dL Performed By: #### L 500.4050, L500.4100 #### [facility] [address] [place], [address] Comprehensive Metabolic Prof ilon 08-10-2025 Albumin [Mass/Vol] 4.3 g/dL Normal 3.4-4.[address] [facility] Comment on above: Performed By: #### L 500.4050, L500.4100 #### [facility] [address] [place], [address] Albumin/Globulin [Mass ratio] 1.9 {ratio} Normal 0.9-2.4 [facility] Comment on above: Performed By: #### L 500.4050, L500.4100 #### [facility] [address] [place], [address] ALK PHOS 95 U/L Normal 35-104 [facility] Comment on above: Performed By: #### L 500.4050, L500.4100 #### [facility] [address] [place], [address] ALT [Catalytic activity/Vol] 30 U/L Normal <=34 [facility] Comment on above: Performed By: #### L 500.4050, L500.4100 #### [facility] [address] [place], [address] AST [Catalytic activity/Vol] 32 U/L Normal <=31 [facility] Comment on above: Performed By: #### L 500.4050, L500.4100 #### [facility] [address] [place], [address] Bilirubin [Mass/Vol] 0.53 mg/dL Normal 0.00-1.30 [facility] Comment on above: Performed By: #### L 500.4050, L500.4100 #### [facility] [address] [place], [address] BUN/CRE 16.4 RATIO Normal 10-20 [facility] Comment on above: Performed By: #### L 500.4050, L500.4100 #### [facility] [address] [place], [address] Calcium [Mass/Vol] 9.1 mg/dL Normal 7.6-11.[address] [facility] Comment on above: Performed By: #### L 500.4050, L500.4100 #### [facility] [address] [place], [address] Chloride [Moles/Vol] 103 mmol/L Normal 98-108 [facility] Comment on above: Performed By: #### L 500.4050, L500.4100 #### [facility] [address] [place], [address] CO2 [Moles/Vol] 23.8 mmol/L Normal 21.0-32.0 [facility] Comment on above: Performed By: #### L 500.4050, L500.4100 #### [facility] [address] [place], [address] Creatinine [Mass/Vol] 0.91 mg/dL Normal 0.70-1.20 [facility] Comment on above: Performed By: #### L 500.4050, L500.4100 #### [facility] [address] [place], [address] GAP 11 Normal 5-15 [facility] Comment on above: Performed By: #### L 500.4050, L500.4100 #### [facility] [address] [place], [address] GFR/1.73 sq M.predicted among non-blacks MDRD (S/P/Bld) [Vol rate/Area] 72 mL/min/{1.73_m2} Normal >60 [facility] Comment on above: Result Comment: mL/m in/1.73m2 CKD-EPI Creatinine Equation (2020) Performed By: #### L 500.4050, L500.4100 #### [facility] [address] [place], [address] Globulin (S) [Mass/Vol] 2.3 g/dL Normal 2.2-4.2 [facility] Comment on above: Performed By: #### L 500.4050, L500.4100 #### [facility] [address] [place], [address] Glucose [Mass/Vol] 138 mg/dL High 70-[address] [facility] Comment on above: Performed By: #### L 500.4050, L500.4100 #### [facility] [address] [place], [address] Potassium [Moles/Vol] 3.9 mmol/L Normal 3.3-5.1 [facility] Comment on above: Performed By: #### L 500.4050, L500.4100 #### [facility] [address] [place], [address] Sodium [Moles/Vol] 138 mmol/L Normal 133-[address] [facility] Comment on above: Performed By: #### L 500.4050, L500.4100 #### [facility] [address] [place], [address] T PROT 6.6 g/dL Normal 5.9-8.4 [facility] Comment on above: Performed By: #### L 500.4050, L500.4100 #### [facility] [address] [place], [address] Urea nitrogen [Mass/Vol] 15 mg/dL Normal 4-19 [facility] Comment on above: Performed By: #### L 500.4050, L500.4100 #### [facility] [address] [place], [address] Hemoglobin A1con 08-10-2025 HbA1c (Bld) [Mass fraction] 6.6 % High <=5.6 [facility] Comment on above: Result Comment: Norm al < 5.7 % Prediabetic 5.7 - 6.4 % Diabetic >or= 6.5 % Please note range changes. Performed By: #### L 500.4050, L500.4100 #### [facility] [address] [place], [address] PTHINon 08-10-2025 PTH 47 pg/mL Normal 11-61 [facility] Comment on above: Performed By: #### L 500.4050, L500.4100 #### [facility] [address] [place], [address] Abdomen Limitedon 07-10-2025 Abdomen Limited [facility] [address] [place] [address] Abdomen Limited MR#: [id number] Acct: [id number] Name: LYNDSEY PANDEY Rep #: [id number] : 1965 F 60 From: Conner Patel MD PCP: PHOEBE Mackey Status: REG CLI Study: Abdomen Limited Date of Exam: 07/10/25 Exam# [id number] Ordering Dr: Charlene Capone PROCEDURE: ABDOMEN LIMITED 07/10/2025 REASON FOR EXAM: ELEVATED LIVER ENZYMES TECHNIQUE: Procedure Code: USABDL Modality: US Procedure: ABDOMEN LIMITED COMPARISON: None. FINDINGS: Liver: Diffusely echogenic suggesting fatty infiltration. The liver is mildly enlarged measuring 16.6 cm in vertical dimension in the midclavicular line. Gallbladder: Surgically absent. Common bile duct: 6 mm Pancreas: Visualized portions are sonographically unremarkable. Other: Visualized portions of the right kidney are unremarkable. The right kidney measures 11.6 x 4.7 x 4.5 cm, with a cortical thickness of 1.7 cm. No right upper quadrant ascites. US/Abdomen Limited IMPRESSION: 1. Enlarged fatty liver. 2. Other findings as noted. Reading Location: [id number]-[id number] CC: PHOEBE Mackey Staff Consultant: Signed Normal [facility] Bilirubin directOrdered By: Maria Teresa Pimentel on 06-23-2025 Bilirubin.direct [Mass/Vol] 0.27 mg/dL 0.00-0.30 [facility] Bilirubin, totalOrdered By: Maria Teresa Pimentel on 06-23-2025 Bilirubin [Mass/Vol] 0.62 mg/dL 0.00-1.30 [facility] - Chemistry and C hemistry - challengeOrdered By: Maria Teresa Pimentel on 06-23-2025 AST [Catalytic activity/Vol] 36 U/L High <32 [facility] Liver Profileon 06-23-2025 Albumin [Mass/Vol] 4.2 g/dL Normal 3.4-4.[address] [facility] Comment on above: Performed By: #### L 500.4050, L500.4100 #### [facility] [address] [place], [address] ALK PHOS 98 U/L Normal 35-104 [facility] Comment on above: Performed By: #### L 500.4050, L500.4100 #### [facility] [address] [place], [address] ALT [Catalytic activity/Vol] 43 U/L High <=34 [facility] Comment on above: Performed By: #### L 500.4050, L500.4100 #### [facility] [address] [place], [address] AST [Catalytic activity/Vol] 36 U/L High <=31 [facility] Comment on above: Performed By: #### L 500.4050, L500.4100 #### [facility] [address] [place], [address] Bilirubin [Mass/Vol] 0.62 mg/dL Normal 0.00-1.30 [facility] Comment on above: Performed By: #### L 500.4050, L500.4100 #### [facility] [address] [place], [address] Bilirubin.direct [Mass/Vol] 0.27 mg/dL Normal 0.00-0.30 [facility] Comment on above: Performed By: #### L 500.4050, L500.4100 #### [facility] [address] [place], [address] Globulin (S) [Mass/Vol] 2.5 g/dL Normal 2.2-4.2 [facility] Comment on above: Performed By: #### L 500.4050, L500.4100 #### [facility] [address] [place], [address] T PROT 6.7 g/dL Normal 5.9-8.4 [facility] Comment on above: Performed By: #### L 500.4050, L500.4100 #### [facility] [address] [place], [address] Serum globulin measurementOr dered By: MariaT eresa Pimentel on 06-23-2025 Globulin (S) [Mass/Vol] 2.5 g/dL 2.2-4.2 [facility] Serum or plasma alanine rosales otransferase (ALT) measurementOrdered By: Maria Teresa Pimentel on 06-23-2025 ALT [Catalytic activity/Vol] 43 U/L High <35 [facility] Serum or plasma albumin orlin urement (mass/volume)Ordered By: Maria Teresa Pimentel on 06-23-2025 Albumin [Mass/Vol] 4.2 g/dL 3.4-4.[address] [facility] Serum or plasma alkaline stacey sphatase measurementOrdered By: Maria Teresa Pimentel on 06-23-2025 ALP [Catalytic activity/Vol] 98 U/L 35-104 [facility] Total proteinOrdered By: Sarah Pimentel on 06-23-2025 Protein [Mass/Vol] 6.7 g/dL 5.9-8.[address] [facility] Anion gap in Serum or Plasma Ordered By: Maria Teresa Pimentel on 05-05-2025 Anion gap [Moles/Vol] 12 mmol/L 5-15 [facility] BUN/creatinine ratioOrdered By: Maria Teresa Pimentel on 05-05-2025 Urea nitrogen/Creatinine [Mass ratio] 16.8 mg/mg 10-20 [facility] Bilirubin, totalOrdered By: Maria Teresa Pimentel on 05-05-2025 Bilirubin [Mass/Vol] 0.55 mg/dL 0.00-1.30 [facility] Calculated very low density lipoprotein (VLDL) cholesterol measurementOrdered By: Maria Teresa Pimentel on 05-05-2025 Calculated very low density lipoprotein (VLDL) cholesterol measurement 25 mg/dL 5-40 [facility] Carbon dioxide, total [Moles /volume] in Central venous bloodOrdered By: Maria Teresa Pimentel on 05-05-2025 CO2 [Moles/Vol] 23.9 mmol/L 21.0-32.0 [facility] Chloride assayOrdered By: Josselyn Pimentel on 05-05-2025 Chloride [Moles/Vol] 105 mmol/L 98-108 [facility] Comprehensive Metabolic Prof ilon 05-05-2025 Albumin [Mass/Vol] 4.1 g/dL Normal 3.4-4.[address] [facility] Comment on above: Performed By: #### L 500.4100, L500.4050, L501.9985, L501.9520 #### [facility] [address] [place], [address] Albumin/Globulin [Mass ratio] 1.7 {ratio} Normal 0.9-2.4 [facility] Comment on above: Performed By: #### L 500.4100, L500.4050, L501.9985, L501.9520 #### [facility] [address] [place], [address] ALK PHOS 102 U/L Normal 35-104 [facility] Comment on above: Performed By: #### L 500.4100, L500.4050, L501.9985, L501.9520 #### [facility] [address] [place], [address] ALT [Catalytic activity/Vol] 54 U/L High <=34 [facility] Comment on above: Performed By: #### L 500.4100, L500.4050, L501.9985, L501.9520 #### [facility] [address] [place], [address] AST [Catalytic activity/Vol] 35 U/L High <=31 [facility] Comment on above: Performed By: #### L 500.4100, L500.4050, L501.9985, L501.9520 #### [facility] [address] [place], [address] Bilirubin [Mass/Vol] 0.55 mg/dL Normal 0.00-1.30 [facility] Comment on above: Performed By: #### L 500.4100, L500.4050, L501.9985, L501.9520 #### [facility] [address] [place], [address] BUN/CRE 16.8 RATIO Normal 10-20 [facility] Comment on above: Performed By: #### L 500.4100, L500.4050, L501.9985, L501.9520 #### [facility] [address] [place], [address] Calcium [Mass/Vol] 9.1 mg/dL Normal 7.6-11.[address] [facility] Comment on above: Performed By: #### L 500.4100, L500.4050, L501.9985, L501.9520 #### [facility] [address] [place], [address] Chloride [Moles/Vol] 105 mmol/L Normal 98-108 [facility] Comment on above: Performed By: #### L 500.4100, L500.4050, L501.9985, L501.9520 #### [facility] [address] [place], [address] CO2 [Moles/Vol] 23.9 mmol/L Normal 21.0-32.0 [facility] Comment on above: Performed By: #### L 500.4100, L500.4050, L501.9985, L501.9520 #### [facility] [address] [place], [address] Creatinine [Mass/Vol] 0.79 mg/dL Normal 0.70-1.20 [facility] Comment on above: Performed By: #### L 500.4100, L500.4050, L501.9985, L501.9520 #### [facility] [address] [place], [address] GAP 12 Normal 5-15 [facility] Comment on above: Performed By: #### L 500.4100, L500.4050, L501.9985, L501.9520 #### [facility] [address] [place], [address] GFR/1.73 sq M.predicted among non-blacks MDRD (S/P/Bld) [Vol rate/Area] 85 mL/min/{1.73_m2} Normal >60 [facility] Comment on above: Result Comment: mL/m in/1.73m2 CKD-EPI Creatinine Equation (2020) Performed By: #### L 500.4100, L500.4050, L501.9985, L501.9520 #### [facility] [address] [place], [address] Globulin (S) [Mass/Vol] 2.5 g/dL Normal 2.2-4.2 [facility] Comment on above: Performed By: #### L 500.4100, L500.4050, L501.9985, L501.9520 #### [facility] [address] [place], [address] Glucose [Mass/Vol] 151 mg/dL High 70-[address] [facility] Comment on above: Performed By: #### L 500.4100, L500.4050, L501.9985, L501.9520 #### [facility] [address] [place], [address] Potassium [Moles/Vol] 4.3 mmol/L Normal 3.3-5.1 [facility] Comment on above: Performed By: #### L 500.4100, L500.4050, L501.9985, L501.9520 #### [facility] [address] [place], [address] Sodium [Moles/Vol] 141 mmol/L Normal 133-[address] [facility] Comment on above: Performed By: #### L 500.4100, L500.4050, L501.9985, L501.9520 #### [facility] [address] [place], [address] T PROT 6.6 g/dL Normal 5.9-8.4 [facility] Comment on above: Performed By: #### L 500.4100, L500.4050, L501.9985, L501.9520 #### [facility] [address] [place], [address] Urea nitrogen [Mass/Vol] 13 mg/dL Normal 4-19 [facility] Comment on above: Performed By: #### L 500.4100, L500.4050, L501.9985, L501.9520 #### [facility] [address] [place], [address] Glomerular filtration rate ( GFR) estimation/1.73 sq m using serum, plasma, or whole bOrdered By: Maria Teresa Pimentel on 05-05-2025 GFR/1.73 sq M.predicted among non-blacks MDRD (S/P/Bld) [Vol rate/Area] 85 mL/min/{1.73_m2} >60 [facility] Comment on above: mL/min/1.73m2 CKD-EP I Creatinine Equation (2020) Hemoglobin A1con 05-05-2025 HbA1c (Bld) [Mass fraction] 7.8 % High <=5.6 [facility] Comment on above: Result Comment: Norm al < 5.7 % Prediabetic 5.7 - 6.4 % Diabetic >or= 6.5 % Please note range changes. Performed By: #### L 500.4100, L500.4050, L501.9985, L501.9520 #### [facility] [address] [place], [place], [id number] Hemoglobin A1c percentageOrd ered By: Maria Teresa Pimentel on 05-05-2025 HbA1c (Bld) [Mass fraction] 7.8 % High <5.7 [facility] Comment on above: Normal < 5.7 % Predi abetic 5.7 - 6.4 % Diabetic >or= 6.5 % Please note range changes. LDL calc ser/plasOrdered By: Maria Teresa Pimentel on 05-05-2025 Cholesterol in LDL [Mass/Vol] 26 mg/dL [facility] Comment on above: Pmfpcohzgn=856-723 m g/dL & Higher Wkdt=838 mg/dL or greater Laboratory - Chemistry and C hemistry - challengeOrdered By: Maria Teresa Pimentel on 05-05-2025 AST [Catalytic activity/Vol] 35 U/L High <32 [facility] Lipid Profileon 05-05-2025 CHOL:HDL 2.32 Normal [facility] Comment on above: Performed By: #### L 500.4100, L500.4050, L501.9985, L501.9520 #### [facility] [address] [place], [place], [id number] Cholesterol [Mass/Vol] 90 mg/dL Normal <=200 [facility] Comment on above: Result Comment: Chol esterol level, Desirable <200 mg/dL Borderline high cholesterol 200-239 mg/dL High cholesterol >=240 mg/dL Recommendations of the NCEP Adult Treatment Panel for the following risk-cutoff thresholds for the [place] population. Performed By: #### L 500.4100, L500.4050, L501.9985, L501.9520 #### [facility] [address] [place], [address] Cholesterol in HDL [Mass/Vol] 39 mg/dL Low [facility] Comment on above: Result Comment: Amanda onal Cholesterol Education Program (NCEP) guidelines: <40 mg/dL: Low HDL-cholesterol (major risk factor for CHD) >= 60 mg/dL: High HDL-cholesterol (negative risk factor for CHD) HDL-cholesterol is affected by a number of factors, e.g. smoking, exercise, hormones, sex and age. Performed By: #### L 500.4100, L500.4050, L501.9985, L501.9520 #### [facility] [address] [place], [address] Cholesterol in LDL [Mass/Vol] 26 mg/dL Normal [facility] Comment on above: Result Comment: Bord enfvwh=874-471 mg/dL Higher Eega=796 mg/dL or greater Performed By: #### L 500.4100, L500.4050, L501.9985, L501.9520 #### [facility] [address] [place], [address] Cholesterol in VLDL [Mass/Vol] 25 mg/dL Normal 5-40 [facility] Comment on above: Performed By: #### L 500.4100, L500.4050, L501.9985, L501.9520 #### [facility] [address] [place], [address] Triglyceride [Mass/Vol] 127 mg/dL Normal [facility] Comment on above: Result Comment: The drugs N-Acetylcysteine and Metamizole may falsely depress this assay. Normal range: <150 mg/dL Borderline High: 150-199 mg/dL High: 200-499 mg/dL Very High: >500 mg/dL Performed By: #### L 500.4100, L500.4050, L501.9985, L501.9520 #### [facility] [address] [place], [address] Potassium measurement (mass/ volume)Ordered By: Maria Teresa Pimentel on 05-05-2025 Potassium (Unsp spec) [Mass/Vol] 4.3 mmol/L 3.3-5.1 [facility] Screening total cholesterol/ high density lipoprotein (HDL) cholesterol ratioOrdered By: Maria Teresa Pimentel on 05-05-2025 Cholesterol.total/Ramonita sterol in HDL [Mass ratio] 2.32 {ratio} [facility] Serum creatinine measurement (mass/volume)Ordered By: Maria Teresa Pimentel on 05-05-2025 Creatinine [Mass/Vol] 0.79 mg/dL 0.70-1.20 [facility] Serum globulin measurementOr dered By: Maria Teresa Pimentel on 05-05-2025 Globulin (S) [Mass/Vol] 2.5 g/dL 2.2-4.2 [facility] Serum glucose measurement (m ass/volume)Ordered By: Maria Teresa Pimentel on 05-05-2025 Glucose [Mass/Vol] 151 mg/dL High 70-[address] [facility] Serum or plasma alanine rosales otransferase (ALT) measurementOrdered By: Maria Teresa Pimentel on 05-05-2025 ALT [Catalytic activity/Vol] 54 U/L High <35 [facility] Serum or plasma albumin orlin urement (mass/volume)Ordered By: Maria Teresa Pimentel on 05-05-2025 Albumin [Mass/Vol] 4.1 g/dL 3.4-4.[address] [facility] Serum or plasma albumin/glob ulin mass ratioOrdered By: Maria Teresa Pimentel on 05-05-2025 Albumin/Globulin [Mass ratio] 1.7 {ratio} 0.9-2.4 [facility] Serum or plasma alkaline stacey sphatase measurementOrdered By: Maria Teresa Pimentel on 05-05-2025 ALP [Catalytic activity/Vol] 102 U/L 35-104 [facility] Serum or plasma calcium orlin urement (mass/volume)Ordered By: Maria Teresa Pimentel on 05-05-2025 Calcium [Mass/Vol] 9.1 mg/dL 7.6-11.[address] [facility] Serum or plasma cholesterol in HDL measurement (mass/volume)Ordered By: Maria Teresa Pimentel on 05-05-2025 Cholesterol in HDL [Mass/Vol] 39 mg/dL Low >40 [facility] Comment on above: National Cholesterol Education Program (NCEP) guidelines:<40 mg/dL: Low HDL-cholesterol (major risk factor for CHD)>= 60 mg/dL: High HDL-cholesterol (negative risk factor for CHD)HDL-cholesterol is affected by a number of factors, e.g. smoking, exercise, hormones, sex and age. Serum or plasma cholesterol measurement (mass/volume)Ordered By: Maria Teresa Pimentel on 05-05-2025 Cholesterol [Mass/Vol] 90 mg/dL <201 [facility] Comment on above: Cholesterol level, D esirable <200 mg/dLBorderline high cholesterol 200-239 mg/dLHigh cholesterol >=240 mg/dLRecommendations of the NCEP Adult Treatment Panel for the following risk-cutoff thresholds for the [place] population. Serum or plasma urea nitroge n measurement (mass/volume)Ordered By: Maria Teresa Pimentel on 05-05-2025 Urea nitrogen [Mass/Vol] 13 mg/dL 4-19 [facility] Sodium levelOrdered By: Dionicio Pimentel on 05-05-2025 Sodium [Moles/Vol] 141 mmol/L 133-[address] [facility] TSH DL <= 0.005 mIU/L QnOrde red By: Maria Teresa Pimentel on 05-05-2025 TSH Qn 1.370 uIU/mL 0.300-4.200 [facility] Thyroid Stim Hormone (TSH)on 05-05-2025 TSH 1.370 uIU/mL Normal 0.300-4.200 [facility] Comment on above: Performed By: #### L 500.4100, L500.4050, L501.9985, L501.9520 #### [facility] [address] [place], [address] Total proteinOrdered By: Sarah Pimentel on 05-05-2025 Protein [Mass/Vol] 6.6 g/dL 5.9-8.[address] [facility] Triglycerides measurementOrd ered By: Maria Teresa Pimentel on 05-05-2025 Triglyceride [Mass/Vol] 127 mg/dL <199 [facility] Comment on above: The drugs N-Acetylcy steine and Metamizole may falsely depress this assay. Normal range: <150 mg/dLBorderline High: 150-199 mg/dLHigh: 200-499 mg/dLVery High: >500 mg/dL CNOVon 03-07-2025 CNOV Office Visit (UCWSTR) LYNDSEY PANDEY ([id number]) 1965 F Date Time Provider Department 03/07/25 8:30 AM [facility]ISSA [facility]RIFF[facility] During your visit today, we recorded the following information about you: Temperature Pulse Respiration Blood pressure 97.5 degrees 82/minute 16/minute 128/78 Weight 82.2 kg Raissa Griffith APRN.TECHNICAL RECRUITER 03/07/2025 10:13 AM Signed [facility] [...] tablet Take by mouth. calcium carbonate/vitamin D2 (ZQNMNBJ-599-D ORAL) Take 1 tablet by mouth once [...] - PREDNISONE 10 MG TABLET Raissa Griffith APRN.TECHNICAL RECRUITER Disposition The patient was discharged. Procedures Allergies [...] Take by mouth. - calcium carbonate/vitamin D2 (ZLULLGB-628-M ORAL) Take 1 tablet by mouth once [...] (more content not included)... Normal [facility] Albumin DL <= 20 mg/L (U) [M ass/Vol]Ordered By: River Dai on 02-09-2025 Urine Random Microalbumin < 12.0 mg/L NO RANGE EST. [facility] Anion gap in Serum or Plasma Ordered By: River Dai on 02-09-2025 Anion gap [Moles/Vol] 10 mmol/L 5-15 [facility] BUN/creatinine ratioOrdered By: River Dai on 02-09-2025 Urea nitrogen/Creatinine [Mass ratio] 18.9 mg/mg 10-20 [facility] Bilirubin, totalOrdered By: River Dai on 02-09-2025 Bilirubin [Mass/Vol] 0.34 mg/dL 0.00-1.30 [facility] Carbon dioxide, total [Moles /volume] in Central venous bloodOrdered By: River Dia on 02-09-2025 CO2 [Moles/Vol] 23.3 mmol/L 21.0-32.0 [facility] Chloride assayOrdered By: Bernardino Dai on 02-09-2025 Chloride [Moles/Vol] 105 mmol/L 98-108 [facility] Comprehensive Metabolic Prof ilon 02-09-2025 Albumin [Mass/Vol] 4.1 g/dL Normal 3.4-4.[address] [facility] Comment on above: Performed By: #### L 500.4050, L500.4100 #### [facility] [address] [place], [address] Albumin/Globulin [Mass ratio] 1.7 {ratio} Normal 0.9-2.4 [facility] Comment on above: Performed By: #### L 500.4050, L500.4100 #### [facility] [address] [place], [address] ALK PHOS 103 U/L Normal 35-104 [facility] Comment on above: Performed By: #### L 500.4050, L500.4100 #### [facility] [address] [place], [address] ALT [Catalytic activity/Vol] 36 U/L High <=34 [facility] Comment on above: Performed By: #### L 500.4050, L500.4100 #### [facility] [address] [place], [address] AST [Catalytic activity/Vol] 28 U/L Normal <=31 [facility] Comment on above: Performed By: #### L 500.4050, L500.4100 #### [facility] [address] [place], [address] Bilirubin [Mass/Vol] 0.34 mg/dL Normal 0.00-1.30 [facility] Comment on above: Performed By: #### L 500.4050, L500.4100 #### [facility] [address] [place], [address] BUN/CRE 18.9 RATIO Normal 10-20 [facility] Comment on above: Performed By: #### L 500.4050, L500.4100 #### [facility] [address] [place], [address] Calcium [Mass/Vol] 8.9 mg/dL Normal 7.6-11.[address] [facility] Comment on above: Performed By: #### L 500.4050, L500.4100 #### [facility] [address] [place], [address] Chloride [Moles/Vol] 105 mmol/L Normal 98-108 [facility] Comment on above: Performed By: #### L 500.4050, L500.4100 #### [facility] [address] [place], [address] CO2 [Moles/Vol] 23.3 mmol/L Normal 21.0-32.0 [facility] Comment on above: Performed By: #### L 500.4050, L500.4100 #### [facility] [address] [place], [address] Creatinine [Mass/Vol] 0.82 mg/dL Normal 0.70-1.20 [facility] Comment on above: Performed By: #### L 500.4050, L500.4100 #### [facility] [address] [place], [address] GAP 10 Normal 5-15 [facility] Comment on above: Performed By: #### L 500.4050, L500.4100 #### [facility] [address] [place], [address] GFR/1.73 sq M.predicted among non-blacks MDRD (S/P/Bld) [Vol rate/Area] 82 mL/min/{1.73_m2} Normal >60 [facility] Comment on above: Result Comment: mL/m in/1.73m2 CKD-EPI Creatinine Equation (2020) Performed By: #### L 500.4050, L500.4100 #### [facility] [address] [place], [address] Globulin (S) [Mass/Vol] 2.4 g/dL Normal 2.2-4.2 [facility] Comment on above: Performed By: #### L 500.4050, L500.4100 #### [facility] [address] [place], [address] Glucose [Mass/Vol] 155 mg/dL High 70-[address] [facility] Comment on above: Performed By: #### L 500.4050, L500.4100 #### [facility] [address] [place], [address] Potassium [Moles/Vol] 4.1 mmol/L Normal 3.3-5.1 [facility] Comment on above: Performed By: #### L 500.4050, L500.4100 #### [facility] [address] [place], [address] Sodium [Moles/Vol] 138 mmol/L Normal 133-[address] [facility] Comment on above: Performed By: #### L 500.4050, L500.4100 #### [facility] [address] [place], [address] T PROT 6.5 g/dL Normal 5.9-8.4 [facility] Comment on above: Performed By: #### L 500.4050, L500.4100 #### [facility] [address] [place], [address] Urea nitrogen [Mass/Vol] 15 mg/dL Normal 4-19 [facility] Comment on above: Performed By: #### L 500.4050, L500.4100 #### [facility] [address] [place], [address] Creatinine Unsp time (U) [Ma ss/Vol]Ordered By: River Dai on 02-09-2025 Creatinine (U) [Mass/Vol] 66.20 mg/dL 28.00-217.00 [facility] GFR/1.73 sq M.predicted keiko g non-blacks MDRD (S/P/Bld) [Vol rate/Area]Ordered By: River Dai on 02-09-2025 Estimated GFR (MDRD) Non-Af Amer 82 >60 [facility] Comment on above: mL/min/1.73m2 CKD-EP I Creatinine Equation (2020) Glomerular filtration rate ( GFR) estimation/1.73 sq m using serum, plasma, or whole bOrdered By: River Dai on 02-09-2025 GFR/1.73 sq M.predicted among non-blacks MDRD (S/P/Bld) [Vol rate/Area] 82 mL/min/{1.73_m2} >60 [facility] Comment on above: mL/min/1.73m2 CKD-EP I Creatinine Equation (2020) Hemoglobin A1c percentageon 02-09-2025 HbA1c (Bld) [Mass fraction] 7.7 % Normal <=5.6 [facility] Comment on above: Performed By: #### L 500.4050, L500.4100 #### [facility] [address] [place], [place], [address] Laboratory - Chemistry and C hemistry - challengeOrdered By: River Dai on 02-09-2025 AST [Catalytic activity/Vol] 28 U/L <32 [facility] Microalb:Creat Ratio,Random URon 02-09-2025 Creatinine [Mass/Vol] 66.20 mg/dL Normal 28.00-217.00 [facility] Comment on above: Performed By: #### L 500.4050, L500.4100 #### [facility] [address] [facility] [place], [address] MALB:CREAT UNABLE TO CALCULATE Normal [facility] Comment on above: Performed By: #### L 500.4050, L500.4100 #### [facility] [address] [place], [address] MICROALBUMIN,UR < 12.0 Normal NO RANGE EST. [facility] Comment on above: Performed By: #### L 500.4050, L500.4100 #### [facility] [address] [place], [address] Microalbumin/creat ratio urO rdered By: River Dai on 02-09-2025 Urine Microalbumin/Creatinine Ratio UNABLE TO CALCULATE mg/g CRE [facility] Urine microalbumin/creatinine ratio measurement UNABLE TO CALCULATE mg/g CRE [facility] Potassium (Unsp spec) [Mass/ Vol]Ordered By: River Dai on 02-09-2025 Potassium [Moles/Vol] 4.1 mmol/L 3.3-5.1 [facility] Potassium measurement (mass/ volume)Ordered By: River Dai on 02-09-2025 Potassium (Unsp spec) [Mass/Vol] 4.1 mmol/L 3.3-5.1 [facility] Random urine creatinine orlin urement (mass/volume)Ordered By: River Dai on 02-09-2025 Creatinine Unsp time (U) [Mass/Vol] 66.20 mg/dL 28.00-217.00 [facility] Serum creatinine measurement (mass/volume)Ordered By: River Dai on 02-09-2025 Creatinine [Mass/Vol] 0.82 mg/dL 0.70-1.20 [facility] Serum globulin measurementOr dered By: River Dai on 02-09-2025 Globulin (S) [Mass/Vol] 2.4 g/dL 2.2-4.2 [facility] Serum glucose measurement (m ass/volume)Ordered By: River Dai on 02-09-2025 Glucose [Mass/Vol] 155 mg/dL High 70-[address] [facility] Serum or plasma alanine rosales otransferase (ALT) measurementOrdered By: River Dai on 02-09-2025 ALT [Catalytic activity/Vol] 36 U/L High <35 [facility] Serum or plasma albumin orlin urement (mass/volume)Ordered By: River Dai on 02-09-2025 Albumin [Mass/Vol] 4.1 g/dL 3.4-4.[address] [facility] Serum or plasma albumin/glob ulin mass ratioOrdered By: River Dai on 02-09-2025 Albumin/Globulin [Mass ratio] 1.7 {ratio} 0.9-2.4 [facility] Serum or plasma alkaline stacey sphatase measurementOrdered By: River Dai on 02-09-2025 ALP [Catalytic activity/Vol] 103 U/L 35-104 [facility] Serum or plasma calcium orlin urement (mass/volume)Ordered By: River Dai 02-09-2025 Calcium [Mass/Vol] 8.9 mg/dL 7.6-11.[address] [facility] Serum or plasma urea nitroge n measurement (mass/volume)Ordered By: River Dai 02-09-2025 Urea nitrogen [Mass/Vol] 15 mg/dL 4-19 [facility] Sodium levelOrdered By: Jose Dai on 02-09-2025 Sodium [Moles/Vol] 138 mmol/L 133-[address] [facility] Total proteinOrdered By: Alexander Dai on 02-09-2025 Protein [Mass/Vol] 6.5 g/dL 5.9-8.[address] [facility] Urine albumin measurement wi detection limit of 20 mg/L or less (mass/volume)Ordered By: River Dai on 02-09-2025 Albumin DL <= 20 mg/L (U) [Mass/Vol] < 12.0 mg/L NO RANGE EST. [facility] CNPNon 12-26-2024 ENMAN Telephone (OBGYWM) LYNDSEY [id number]) 1965 F Date Time Provider Department 12/26/24 RUPALI SAGE During your visit today, we recorded the following information about you: Michelle Landry LPN 12/26/2024 3:42 PM Signed Patient called requesting an order for a screening mammmogram with gloria. Last yearly exam was 07/11/2024 Allergies As of Date: 12/26/2024 (No Known Allergies) Date Reviewed: 07/11/2024 Reviewed by: Rupali Sage APRN.TECHNICAL RECRUITER - Fully Assessed Primary Visit Diagnosis:Encounter for screening mammogram for malignant neoplasm of breast [Z12.31] Order(s):[facility] SCREENING [facility] GLORIA [[id number]] Order #: [id number] FUTURE Prescriptions as of 12/26/2024 - dapagliflozin propanediol (FARXIGA) 10 mg tablet Take by mouth. - calcium carbonate/vitamin D2 (SPVOLUM-197-M ORAL) Take 1 tablet by mouth once [...] RUPALI SAGE on 12/26/24 Normal [facility] 07-DU-Kddawol DOrdered By: Deirdre Dai on 10-31-2024 Vitamin D 25-Hydroxy 34.5 ng/mL [facility] Comment on above: Vitamin D 25(OH) Sta tus Range Deficiency <20 ng/mL (50nmol/L) Insufficiency 20 - 30 ng/mL (50 - 75 nmol/L) Sufficiency 30 - 100 ng/mL (75 - 250 nmol/L) Toxicity >100 ng/mL (>250 nmol/L) Albumin to globulin ratioOrd ered By: River Dai on 10-31-2024 Albumin/Globulin [Mass ratio] 1.2 {ratio} 0.9-2.4 [facility] Bilirubin, totalOrdered By: River Dai on 10-31-2024 Bilirubin [Mass/Vol] 0.60 mg/dL 0.20-1.00 [facility] Comment on above: For patients on eltr ombopag therapy, use of Dimension Noti TBIL is not recommended. Blood urea nitrogen (BUN)/cr eatinine ratioOrdered By: River Dai on 10-31-2024 Urea nitrogen/Creatinine [Mass ratio] 15.6 mg/mg 10-20 [facility] Carbon dioxide measurementOr dered By: River Dai on 10-31-2024 CO2 [Moles/Vol] 31.0 mmol/L 21.0-32.0 [facility] Chloride measurementOrdered By: River Dai on 10-31-2024 Chloride [Moles/Vol] 107 mmol/L 98-107 [facility] Comprehensive Metabolic Prof ilon 10-31-2024 Albumin [Mass/Vol] 3.7 g/dL Normal 3.2-5.[address] [facility] Comment on above: Performed By: #### L 501.9969, L500.4050, L506.1000, L509.1000 #### [facility] [address] [place], [address] Albumin/Globulin [Mass ratio] 1.2 {ratio} Normal 0.9-2.4 [facility] Comment on above: Performed By: #### L 501.9985, L500.4050, L506.1000, L509.1000 #### [facility] [address] [place], [address] ALK P 104 U/L Normal 45-117 [facility] Comment on above: Performed By: #### L 501.9985, L500.4050, L506.1000, L509.1000 #### [facility] [address] [place], [address] ALT [Catalytic activity/Vol] 34 U/L Normal 13-56 [facility] Comment on above: Performed By: #### L 501.9985, L500.4050, L506.1000, L509.1000 #### [facility] [address] [place], [address] AST [Catalytic activity/Vol] 24 U/L Normal 15-37 [facility] Comment on above: Performed By: #### L 501.9985, L500.4050, L506.1000, L509.1000 #### [facility] [address] [place], [address] Bilirubin [Mass/Vol] 0.60 mg/dL Normal 0.20-1.00 [facility] Comment on above: Result Comment: For patients on eltrombopag therapy, use of Dimension Noti TBIL is not recommended. Performed By: #### L 501.9985, L500.4050, L506.1000, L509.1000 #### [facility] [address] [place], [address] BUN/CRE 15.6 RATIO Normal 10-20 [facility] Comment on above: Performed By: #### L 501.9985, L500.4050, L506.1000, L509.1000 #### [facility] [address] [place], [address] CA,Total 8.7 mg/dL Normal 8.5-10.1 [facility] Comment on above: Performed By: #### L 501.9985, L500.4050, L506.1000, L509.1000 #### [facility] [address] [place], [address] Chloride [Moles/Vol] 107 mmol/L Normal 98-107 [facility] Comment on above: Performed By: #### L 501.9985, L500.4050, L506.1000, L509.1000 #### [facility] [address] [place], [address] CO2 [Moles/Vol] 31.0 mmol/L Normal 21.0-32.0 [facility] Comment on above: Performed By: #### L 501.9985, L500.4050, L506.1000, L509.1000 #### [facility] [address] [place], [address] Creatinine [Mass/Vol] 0.83 mg/dL Normal 0.55-1.02 [facility] Comment on above: Result Comment: The validity of the calculated GFR GFRAA in patients over 70 years has not been determined. Clinical correlation is essential. Performed By: #### L 501.9985, L500.4050, L506.1000, L509.1000 #### [facility] [address] [place], [address] EST GFR - AA 90 mL/min Normal >60 [facility] Comment on above: Result Comment: Afri can [place] GFR Calc Performed By: #### L 501.9985, L500.4050, L506.1000, L509.1000 #### [facility] [address] [place], [address] GAP 1 Low 5-15 [facility] Comment on above: Performed By: #### L 501.9985, L500.4050, L506.1000, L509.1000 #### [facility] [address] [place], [address] GFR/1.73 sq M.predicted among non-blacks MDRD (S/P/Bld) [Vol rate/Area] 74 mL/min/{1.73_m2} Normal >60 [facility] Comment on above: Result Comment: Non- GFR Calc Performed By: #### L 501.9985, L500.4050, L506.1000, L509.1000 #### [facility] [address] [place], [address] Globulin (S) [Mass/Vol] 3.2 g/dL Normal 2.2-4.2 [facility] Comment on above: Performed By: #### L 501.9985, L500.4050, L506.1000, L509.1000 #### [facility] [address] [place], [address] Glucose [Mass/Vol] 181 mg/dL High 74-[address] [facility] Comment on above: Result Comment: Fast ing Glucose result greater than or equal to 126 mg/dL suggests DIABETES MELLITUS per A.D.A. criteria. Performed By: #### L 501.9985, L500.4050, L506.1000, L509.1000 #### [facility] [address] [place], [address] Potassium [Moles/Vol] 4.0 mmol/L Normal 3.5-5.1 [facility] Comment on above: Performed By: #### L 501.9985, L500.4050, L506.1000, L509.1000 #### [facility] [address] [place], [address] Sodium [Moles/Vol] 139 mmol/L Normal 136-[address] [facility] Comment on above: Performed By: #### L 501.9985, L500.4050, L506.1000, L509.1000 #### [facility] [address] [place], [address] T PROT 6.9 g/dL Normal 6.4-8.2 [facility] Comment on above: Performed By: #### L 501.9985, L500.4050, L506.1000, L509.1000 #### [facility] [address] [place], [address] Urea nitrogen [Mass/Vol] 13 mg/dL Normal 7-18 [facility] Comment on above: Performed By: #### L 501.9985, L500.4050, L506.1000, L509.1000 #### [facility] [address] [place], [address] Estimated glomerular filtrat ion rate (GFR) AmericanOrdered By: River Dai on 10-31-2024 Estimated GFR (MDRD) Amer 90 mL/min >60 [facility] Comment on above: GFR Calc Glomerular filtration rate ( GFR) estimationOrdered By: River Dai on 10-31-2024 Estimated GFR (MDRD) Non-Af Amer 74 mL/min >60 [facility] Comment on above: Non- GFR Calc Glucose measurementOrdered B y: River Dai on 10-31-2024 Glucose [Mass/Vol] 181 mg/dL High 74-[address] [facility] Comment on above: Fasting Glucose resu lt greater than or equal to 126 mg/dL suggests DIABETES MELLITUS per A.D.A. criteria. Hemoglobin A1con 10-31-2024 HbA1c (Bld) [Mass fraction] 7.2 % High 3.8-5.6 [facility] Comment on above: Result Comment: Norm al < 5.7 % Prediabetic 5.7 - 6.4 % Diabetic >or= 6.5 % Please note range changes. Performed By: #### L [id number], [id number], L506.1000, L509.1000 #### [facility] [address] [place], [address] Hemoglobin A1c percentageOrd ered By: River Dai on 10-31-2024 HbA1c (Bld) [Mass fraction] 7.2 % High 3.8-5.6 [facility] Comment on above: Normal < 5.7 % Predi abetic 5.7 - 6.4 % Diabetic >or= 6.5 % Please note range changes. Intact parathyroid hormone ( iPTH) measurementOrdered By: River Dai on 10-31-2024 Parathyroid Hormone (Intact) 65.9 pg/mL 18.4-80.1 [facility] - Chemistry and C hemistry - challengeOrdered By: River Dai on 10-31-2024 AST [Catalytic activity/Vol] 24 U/L 15-37 [facility] PTHINon 10-31-2024 PTH 65.9 pg/mL Normal 18.4-80.1 [facility] Comment on above: Performed By: #### L [id number], [id number], L506.1000, L509.1000 #### [facility] [address] [place] [address], [address] Potassium measurementOrdered By: River Dai on 10-31-2024 Potassium [Moles/Vol] 4.0 mmol/L 3.5-5.1 [facility] Serum anion gap measurementO rdered By: River Dai on 10-31-2024 Anion gap [Moles/Vol] 1 mmol/L Low 5-15 [facility] Serum globulin measurementOr dered By: River Dai on 10-31-2024 Globulin (S) [Mass/Vol] 3.2 g/dL 2.2-4.2 [facility] Serum or plasma alanine rosales otransferase (ALT) measurementOrdered By: River Dai on 10-31-2024 ALT [Catalytic activity/Vol] 34 U/L 13-56 [facility] Serum or plasma albumin orlin urement (mass/volume)Ordered By: River Dai on 10-31-2024 Albumin [Mass/Vol] 3.7 g/dL 3.2-5.[address] [facility] Serum or plasma alkaline stacey sphatase measurementOrdered By: River Dai on 10-31-2024 ALP [Catalytic activity/Vol] 104 U/L 45-117 [facility] Serum or plasma calcium orlin urement (mass/volume)Ordered By: River Dai on 10-31-2024 Calcium [Mass/Vol] 8.7 mg/dL 8.5-10.[address] [facility] Serum or plasma creatinine m easurement (mass/volume)Ordered By: River Dai on 10-31-2024 Creatinine [Mass/Vol] 0.83 mg/dL 0.55-1.02 [facility] Comment on above: The validity of the calculated GFR & GFRAA in patients over 70 years has not been determined. Clinical correlation is essential. Serum or plasma urea nitroge n measurement (mass/volume)Ordered By: River Dai on 10-31-2024 Urea nitrogen [Mass/Vol] 13 mg/dL 7-18 [facility] Sodium levelOrdered By: Jose Dai on 10-31-2024 Sodium [Moles/Vol] 139 mmol/L 136-[address] [facility] Total proteinOrdered By: Alexander Dai on 10-31-2024 Protein [Mass/Vol] 6.9 g/dL 6.4-8.[address] 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 Normal [facility] XR Shoulder - left 2 Viewson [...] pathology. 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 [facility] Radiology Study observation (narrative) [facility] XR Shoulder - left 2 ViewsOr dered By: Alba Dutta on 09-11-2024 [facility] Work Phone: DBT Breast - bilateral scree mariuszgon 07-11-2024 IMPRESSION: NEGATIVE There is no mammographic evidence of malignancy. A 1 year screening mammogram is recommended. The exam was reviewed by a staff physician. Luis Ardon D.O. tr,maryjane/rociorad:07/11/20 24 09:46:30 Rn Ent(s): RT Liam(R)(M), [facility] letter sent: Normal over 40 Mammogram BI-RADS: [...] Health, Family Medicine, and Medical/Surgical Oncology, the [facility] has carefully reviewed the data and reached [...] their providers when to stop screening mammograms. Staff Consultant: [employer] Date/Time: Jul 11 2024 8:53A Dictated by: KERMIT ARDON, This examination was interpreted and the report reviewed and electronically signed by: LUIS TORRES MD on Jul 11 2024 9:46AM [facility] DIVISION OF RADIOLOGY * * *Final Report* * * DATE OF EXAM: Jul 11 2024 9:17AM W 0582 - [facility] SCREENING W GLORIA / PROCEDURE REASON: Encounter for screening mammogram for malignant neoplasm of breast * * * * Physician Interpretation * * * * RESULT: #[id number] - [facility] SCREENING W GLORIA BILATERAL DIGITAL [...] mammogram, 10/03/2021 mammogram, and 08/15/2020 mammogram - [facility]. There are scattered areas of fibroglandular density. No significant masses, calcifications, or other findings are seen in either breast. There has been no significant interval change. DIVISION OF RADIOLOGY Provider, [facility] [place] - 07/11/2024 * * *Final Report* * * DATE OF EXAM: Jul 11 2024 9:17AM W 0582 - [facility] SCREENING W GLORIA / PROCEDURE REASON: Encounter for screening mammogram for malignant neoplasm of breast * * * * Physician Interpretation * * * * RESULT: #[id number] - [facility] SCREENING W GLORIA BILATERAL DIGITAL [...] mammogram, 10/03/2021 mammogram, and 08/15/2020 mammogram - [facility]. There are scattered areas of fibroglandular density. No significant masses, calcifications, or other findings are seen in either breast. There has been no significant interval change. IMPRESSION IMPRESSION: NEGATIVE There is no mammographic evidence of malignancy. A 1 year screening mammogram is recommended. The exam was reviewed by a staff physician. maryjane Alva M.D., D.O./stanford:07/11/20 09:46:30 Rn Ent(s): RT Liam(R)(M), [facility] letter sent: Normal over 40 Mammogram BI-RADS: [...] Health, Family Medicine, and Medical/Surgical Oncology, the [facility] has carefully reviewed the data and reached [...] their providers when to stop screening mammograms. Staff Consultant: [employer] Date/Time: Jul 11 2024 8:53A Dictated by: KERMIT ARDON DO This examination was interpreted and the report reviewed and electronically signed by: LUIS TORRES MD on Jul 11 2024 9:46AM EST [facility] Radiology Study observation (narrative) [facility] DBT Breast - bilateral scree ningOrdered By: Ccf Provider on 07-11-2024 [facility] - Hematology and Cell countson 07-11-2024 HbA1c (Bld) [Mass fraction] 7.0 % Normal 4.6 - 7.1 % [facility]. Basophil percentageOrdered B y: Charlene Capone on 01-10-2024 Bilirubin [Mass/Vol] 0.70 mg/dL 0.20-1.00 [facility] Comment on above: For patients on eltr ombopag therapy, use of Dimension Noti TBIL is not recommended. Chloride [Moles/Vol] 110 mmol/L 98-107 [facility] Glucose [Mass/Vol] 134 mg/dL 74-[address] [facility] Comment on above: Fasting Glucose resu lt greater than or equal to 126 mg/dL suggests DIABETES MELLITUS per A.D.A. criteria. Potassium [Moles/Vol] 4.3 mmol/L 3.5-5.1 [facility] Protein [Mass/Vol] 7.3 g/dL 6.4-8.[address] [facility] Sodium [Moles/Vol] 141 mmol/L 136-[address] [facility] - Chemistry and C hemistry - challengeOrdered By: Charlene Capone on 01-10-2024 Albumin/Globulin [Mass ratio] 1.1 {ratio} 0.9-2.4 [facility] ALP [Catalytic activity/Vol] 112 U/L 45-117 [facility] ALT [Catalytic activity/Vol] 46 U/L 13-56 [facility] CO2 [Moles/Vol] 26.0 mmol/L 21.0-32.0 [facility] Globulin (S) [Mass/Vol] 3.4 g/dL 2.2-4.2 [facility] Urea nitrogen/Creatinine [Mass ratio] 17.8 mg/mg 10-20 [facility] No Panel Informationon 01-09 134 mg/dL Abnormal 74 - 106 mg/dL [employer] Work Phone: 14 mg/dL Normal 7 - 18 mg/dL [facility] [employer] [facility] [employer] Work Phone: 0.79 mg/dL Normal 0.55 - 1.02 mg/dL [employer] Work Phone: 80 mL/min Normal [employer] Work Phone: 96 mL/min Normal [employer] Work Phone: 17.8 {RATIO} Normal 10 - 20 {RATIO} [employer] Work Phone: 7.3 g/dL Normal 6.4 - 8.2 g/dL [employer] Work Phone: 3.9 g/dL Normal 3.2 - 5.0 g/dL [employer] Work Phone: 3.4 g/dL Normal 2.2 - 4.2 g/dL [employer] Work Phone: 1.1 {RATIO} Normal 0.9 - 2.4 {RATIO} [employer] Work Phone: 9.2 mg/dL Normal 8.5 - 10.1 mg/dL [employer] Work Phone: 28 U/L Normal 15 - 37 U/L [employer] Work Phone: 112 U/L Normal 45 - 117 U/L [employer] Work Phone: 46 U/L Normal 13 - 56 U/L [employer] Work Phone: 0.70 mg/dL Normal 0.20 - 1.00 mg/dL [employer] Work Phone: 141 mmol/L Normal 136 - 145 mmol/L [employer] Work Phone: 4.3 mmol/L Normal 3.5 - 5.1 mmol/L [employer] Work Phone: 110 mmol/L Abnormal 98 - 107 mmol/L [employer] Work Phone: 26.0 mmol/L Normal 21.0 - 32.0 mmol/L [employer] Work Phone: 5 Normal 5 - 15 [employer] Work Phone: 6.7 Abnormal 3.8 - 5.6 [employer] Work Phone: No Panel InformationOrdered By: Charlene Capone on 01-10-2024 Estimated GFR (MDRD) Amer 96 mL/min >60 [facility] Comment on above: GFR Calc Estimated GFR (MDRD) Non-Af Amer 80 mL/min >60 [facility] Comment on above: Non- GFR Calc Serum or plasma calcium orlin urement (mass/volume)Ordered By: Charlene Capone on 01-10-2024 Calcium [Mass/Vol] 9.2 mg/dL 8.5-10.[address] [facility] Serum or plasma creatinine m easurement (mass/volume)Ordered By: Charlene Capone on 01-10-2024 Creatinine [Mass/Vol] 0.79 mg/dL 0.55-1.02 [facility] Comment on above: The validity of the calculated GFR & GFRAA in patients over 70 years has not been determined. Clinical correlation is essential. Serum or plasma urea nitroge n measurement (mass/volume)Ordered By: Charlene Capone on 01-10-2024 Urea nitrogen [Mass/Vol] 14 mg/dL 7-18 [facility] Thin prep Papanicolaou smear with manual screeningOrdered By: Charlene Capone on 01-10-2024 Thin prep Papanicolaou smear with manual screening 3.9 g/dL 3.2-5.0 [facility] Thin prep Papanicolaou smear with manual screening 28 U/L 15-37 [facility] Thin prep Papanicolaou smear with manual screening 5 5-15 [facility] Whole blood hemoglobin A1c/t otal hemoglobin ratio (mass fraction)Ordered By: Charlene Capone on 01-10-2024 HbA1c (Bld) [Mass fraction] 6.7 % 3.8-5.6 [facility] Comment on above: Normal < 5.7 % Predi abetic 5.7 - 6.4 % Diabetic >or= 6.5 % Please note range changes. Glucose Glucometer (BldC) [M ass/Vol]Ordered By: Mg Brooks on 11-12-2023 Glucose [Mass/Vol] 156 mg/dL 74-[address] [facility] Comment on above: MANAGEMENT OF PATIEN T CARE PER NURSING PROTOCOL Absolute lymphocyte countOrd ered By: Mg Brooks on 11-05-2023 Lymphocytes Auto (Unsp spec) [#/Vol] 1.26 10*3/uL 0.83-4.51 [facility] Basophil percentageOrdered B y: Mg Brooks on 11-05-2023 Basophils/100 WBC (Bld) 0.5 % 0-1 [facility] Eosinophils/100 WBC (Bld) 2.5 % 0-5 [facility] Neutrophils (Bld) [#/Vol] 2.4 10*3/uL 2.0-7.7 [facility] Neutrophils/100 WBC (Bld) 55.4 % 47-70 [facility] WBC (Bld) [#/Vol] 4.3 10*3/uL 4.4-11.[address] [facility] Blood erythrocytes count (nu mber/volume)Ordered By: Mg Brooks on 11-05-2023 RBC (Bld) [#/Vol] 5.15 10*6/uL 4.2-5.4 [place] Blood hemoglobin measurement (mass/volume)Ordered By: Mg Brooks on 11-05-2023 Hemoglobin (Bld) [Mass/Vol] 13.4 g/dL 12.0-15.0 [facility] Blood lymphocytes/100 leukoc ytesOrdered By: Mg Brooks on 11-05-2023 Lymphocytes/100 WBC (Bld) 29.1 % 19-41 [facility] Blood monocytes/100 leukocyt esOrdered By: Mgbhavya Brooks on 11-05-2023 Monocytes/100 WBC (Bld) 12.5 % 0-10 [facility] Blood platelet mean volumeOr dered By: Mg Brooks on 11-05-2023 Platelet mean volume (Bld) [Entitic vol] 9.6 fL 6.2-12.0 [facility] Determination of erythrocyte mean corpuscular volume (MCV)Ordered By: Mg Brooks on 11-05-2023 MCV (RBC) [Entitic vol] 84.3 fL 81-99 [facility] Hematocrit Auto (Bld) [Volum e fraction]Ordered By: Mg Brooks on 11-05-2023 Hematocrit (Bld) [Volume fraction] 43.4 % 37-47 [facility] - Hematology and Cell countsOrdered By: Mg Brooks on 11-05-2023 Erythrocyte distribution width (RBC) [Entitic vol] 48.7 fL 35.1-43.9 [facility] Erythrocyte distribution width (RBC) [Ratio] 15.7 % 11.6-14.6 [facility] Immature granulocytes/100 WBC (Bld) 0.000 % 0.0-0.9 [facility] Comment on above: IG% - Immature Granu locytes (promyelocytes, myelocytes and metamyelocytes) > 1% indicates that a LEFT SHIFT is Present. MCH (RBC) [Entitic mass] 26.0 pg 27.0-32.0 [facility] Nucleated RBC/100 WBC (Bld) [Ratio] 0 % 0-5 [facility] MCHC Auto (RBC) [Mass/Vol]Or dered By: Mg Brooks on 11-05-2023 MCHC (RBC) [Mass/Vol] 30.9 g/dL 32-36 [facility] Platelets bldOrdered By: Doug Brooks on 11-05-2023 Platelets (Bld) [#/Vol] 307 10*3/uL 150-450 [facility] Basophil percentageOrdered B y: River Dai on 10-09-2023 Bilirubin [Mass/Vol] 0.50 mg/dL 0.20-1.00 [facility] Comment on above: For patients on eltr ombopag therapy, use of Dimension Noti TBIL is not recommended. Chloride [Moles/Vol] 110 mmol/L 98-107 [facility] Cholesterol [Mass/Vol] 101 mg/dL <200 [facility] Comment on above: <200 mg/dL Desirable 200-240 mg/dL Borderline >240 mg/dL High Risk Glucose [Mass/Vol] 135 mg/dL 74-[address] [facility] Comment on above: Fasting Glucose resu lt greater than or equal to 126 mg/dL suggests DIABETES MELLITUS per A.D.A. criteria. Potassium [Moles/Vol] 4.3 mmol/L 3.5-5.1 [facility] Protein [Mass/Vol] 7.0 g/dL 6.4-8.[address] [facility] Sodium [Moles/Vol] 141 mmol/L 136-[address] [facility] Triglyceride [Mass/Vol] 110 mg/dL <199 [facility] Comment on above: The drugs N-Acetylcy steine and Metamizole may falsely depress this assay.Serum Triglycerides Reference Interval Normal <150 mg/dL Borderline high 150 - 199 mg/dL High 200 - 499 mg/dL Very High > or = 500 mg/dL Laboratory - Chemistry and C hemistry - challengeOrdered By: River Dai on 10-09-2023 ALP [Catalytic activity/Vol] 104 U/L 45-117 [facility] ALT [Catalytic activity/Vol] 32 U/L 13-56 [facility] CO2 [Moles/Vol] 28.0 mmol/L 21.0-32.0 [facility] Globulin (S) [Mass/Vol] 3.4 g/dL 2.2-4.2 [facility] Urea nitrogen/Creatinine [Mass ratio] 15.7 mg/mg 10-20 [facility] No Panel InformationOrdered By: River Dai on 10-09-2023 Estimated GFR (MDRD) Amer 83 mL/min >60 [facility] Comment on above: GFR Calc Estimated GFR (MDRD) Non-Af Amer 69 mL/min >60 [facility] Comment on above: Non- GFR Calc Serum or plasma albumin orlin urement (mass/volume)Ordered By: River Dai on 10-09-2023 Albumin [Mass/Vol] 3.6 g/dL 3.2-5.[address] [facility] Serum or plasma albumin/glob ulin mass ratioOrdered By: Riverzayra Dai on 10-09-2023 Albumin/Globulin [Mass ratio] 1.1 {ratio} 0.9-2.4 [facility] Serum or plasma calcium orlin urement (mass/volume)Ordered By: River Dai on 10-09-2023 Calcium [Mass/Vol] 8.7 mg/dL 8.5-10.[address] [facility] Serum or plasma cholesterol in HDL measurement (mass/volume)Ordered By: River Dai on 10-09-2023 Cholesterol in HDL [Mass/Vol] 44 mg/dL >40 [facility] Comment on above: The drugs N-Acetylcy steine and Metamizole may falsely depress this assay. Reference Range HDL <40 mg/dL Low HDL Cholesterol HDL >or= 60 mg/dL High HDL Cholesterol Serum or plasma cholesterol in VLDL measurement (mass/volume)Ordered By: River Dai on 10-09-2023 Cholesterol in VLDL [Mass/Vol] 22 mg/dL 5-40 [facility] Serum or plasma creatinine m easurement (mass/volume)Ordered By: River Dai on 10-09-2023 Creatinine [Mass/Vol] 0.89 mg/dL 0.55-1.02 [facility] Comment on above: The validity of the calculated GFR & GFRAA in patients over 70 years has not been determined. Clinical correlation is essential. Serum or plasma low density lipoprotein (LDL) cholesterol measurement (mass/volume)Ordered By: River Dai on 10-09-2023 Cholesterol in LDL [Mass/Vol] 35 mg/dL 0-130 [facility] Serum or plasma urea nitroge n measurement (mass/volume)Ordered By: River Dai on 10-09-2023 Urea nitrogen [Mass/Vol] 14 mg/dL 7-18 [facility] Thin prep Papanicolaou smear with manual screeningOrdered By: River Dai on 10-09-2023 Thin prep Papanicolaou smear with manual screening 18 U/L 15-37 [facility] Thin prep Papanicolaou smear with manual screening 3 5-15 [facility] Whole blood hemoglobin A1c/t otal hemoglobin ratio (mass fraction)Ordered By: River Dai on 10-09-2023 HbA1c (Bld) [Mass fraction] 7.0 % 3.8-5.6 [facility] Comment on above: Normal < 5.7 % Predi abetic 5.7 - 6.4 % Diabetic >or= 6.5 % Please note range changes. Basophil percentageOrdered B y: River Dai on 07-10-2023 Bilirubin [Mass/Vol] 0.60 mg/dL 0.20-1.00 [facility] Comment on above: For patients on eltr ombopag therapy, use of Dimension Noti TBIL is not recommended. Chloride [Moles/Vol] 105 mmol/L 98-107 [facility] Glucose [Mass/Vol] 138 mg/dL 74-[address] [facility] Comment on above: Fasting Glucose resu lt greater than or equal to 126 mg/dL suggests DIABETES MELLITUS per A.D.A. criteria. Potassium [Moles/Vol] 4.3 mmol/L 3.5-5.1 [facility] Protein [Mass/Vol] 7.2 g/dL 6.4-8.[address] [facility] Sodium [Moles/Vol] 140 mmol/L 136-[address] [facility] Laboratory - Chemistry and C hemistry - challengeOrdered By: River Dai on 07-10-2023 ALP [Catalytic activity/Vol] 118 U/L 45-117 [facility] ALT [Catalytic activity/Vol] 35 U/L 13-56 [facility] CO2 [Moles/Vol] 28.0 mmol/L 21.0-32.0 [facility] Globulin (S) [Mass/Vol] 3.4 g/dL 2.2-4.2 [facility] Urea nitrogen/Creatinine [Mass ratio] 14.3 mg/mg 10-20 [facility] No Panel InformationOrdered By: River Dai on 07-10-2023 Estimated GFR (MDRD) Amer 90 mL/min >60 [facility] Comment on above: GFR Calc Estimated GFR (MDRD) Non-Af Amer 74 mL/min >60 [facility] Comment on above: Non- GFR Calc Thyroid Stimulating Hormone (TSH) 0.80 uIU/mL 0.358-3.74 [facility] Serum or plasma albumin orlin urement (mass/volume)Ordered By: River Dai on 07-10-2023 Albumin [Mass/Vol] 3.8 g/dL 3.2-5.[address] [facility] Serum or plasma albumin/glob ulin mass ratioOrdered By: River Dai on 07-10-2023 Albumin/Globulin [Mass ratio] 1.1 {ratio} 0.9-2.4 [facility] Serum or plasma calcium orlin urement (mass/volume)Ordered By: River Dai on 07-10-2023 Calcium [Mass/Vol] 8.9 mg/dL 8.5-10.[address] [facility] Serum or plasma creatinine m easurement (mass/volume)Ordered By: River Dai on 07-10-2023 Creatinine [Mass/Vol] 0.84 mg/dL 0.55-1.02 [facility] Comment on above: The validity of the calculated GFR & GFRAA in patients over 70 years has not been determined. Clinical correlation is essential. Serum or plasma urea nitroge n measurement (mass/volume)Ordered By: River Dai on 07-10-2023 Urea nitrogen [Mass/Vol] 12 mg/dL 7-18 [facility] Thin prep Papanicolaou smear with manual screeningOrdered By: River Dai on 07-10-2023 Thin prep Papanicolaou smear with manual screening 23 U/L 15-37 [facility] Thin prep Papanicolaou smear with manual screening 7 5-15 [facility] Whole blood hemoglobin A1c/t otal hemoglobin ratio (mass fraction)Ordered By: River Dai on 07-10-2023 HbA1c (Bld) [Mass fraction] 6.9 % 3.8-5.6 [facility] Comment on above: Normal < 5.7 % Predi abetic 5.7 - 6.4 % Diabetic >or= 6.5 % Please note range changes. Basophil percentageOrdered B y: Dr. Dai on 04-15-2023 Bilirubin [Mass/Vol] 0.60 mg/dL 0.20-1.00 [facility] Comment on above: For patients on eltr ombopag therapy, use of Dimension Noti TBIL is not recommended. Chloride [Moles/Vol] 108 mmol/L 98-107 [facility] Cholesterol [Mass/Vol] 108 mg/dL <200 [facility] Comment on above: <200 mg/dL Desirable 200-240 mg/dL Borderline >240 mg/dL High Risk Glucose [Mass/Vol] 158 mg/dL 74-[address] [facility] Comment on above: Fasting Glucose resu lt greater than or equal to 126 mg/dL suggests DIABETES MELLITUS per A.D.A. criteria. Potassium [Moles/Vol] 4.2 mmol/L 3.5-5.1 [facility] Protein [Mass/Vol] 7.3 g/dL 6.4-8.[address] [facility] Sodium [Moles/Vol] 141 mmol/L 136-[address] [facility] Triglyceride [Mass/Vol] 171 mg/dL <199 [facility] Comment on above: The drugs N-Acetylcy steine and Metamizole may falsely depress this assay.Serum Triglycerides Reference Interval Normal <150 mg/dL Borderline high 150 - 199 mg/dL High 200 - 499 mg/dL Very High > or = 500 mg/dL Laboratory - Chemistry and C hemistry - challengeOrdered By: Dr. Dai on 04-15-2023 ALP [Catalytic activity/Vol] 141 U/L 45-117 [facility] ALT [Catalytic activity/Vol] 32 U/L 13-56 [facility] CO2 [Moles/Vol] 26.0 mmol/L 21.0-32.0 [facility] Globulin (S) [Mass/Vol] 3.5 g/dL 2.2-4.2 [facility] Urea nitrogen/Creatinine [Mass ratio] 21.7 mg/mg 10-20 [facility] No Panel InformationOrdered By: Dr. Dai on 04-15-2023 Estimated GFR (MDRD) Amer 104 mL/min >60 [facility] Comment on above: GFR Calc Estimated GFR (MDRD) Non-Af Amer 86 mL/min >60 [facility] Comment on above: Non- GFR Calc Urine Microalbumin/Creatinine Ratio 13.9 mg/g CRE <30 [facility] Serum or plasma albumin orlin urement (mass/volume)Ordered By: Dr. Dai on 04-15-2023 Albumin [Mass/Vol] 3.8 g/dL 3.2-5.[address] [facility] Serum or plasma albumin/glob ulin mass ratioOrdered By: Dr. Dai on 04-15-2023 Albumin/Globulin [Mass ratio] 1.1 {ratio} 0.9-2.4 [facility] Serum or plasma calcium orlin urement (mass/volume)Ordered By: Dr. Dai on 04-15-2023 Calcium [Mass/Vol] 9.1 mg/dL 8.5-10.[address] [facility] Serum or plasma cholesterol in HDL measurement (mass/volume)Ordered By: Dr. Dai on 04-15-2023 Cholesterol in HDL [Mass/Vol] 44 mg/dL >40 [facility] Comment on above: The drugs N-Acetylcy steine and Metamizole may falsely depress this assay. Reference Range HDL <40 mg/dL Low HDL Cholesterol HDL >or= 60 mg/dL High HDL Cholesterol Serum or plasma cholesterol in VLDL measurement (mass/volume)Ordered By: Dr. Dai on 04-15-2023 Cholesterol in VLDL [Mass/Vol] 34 mg/dL 5-40 [facility] Serum or plasma creatinine m easurement (mass/volume)Ordered By: Dr. Dai on 04-15-2023 Creatinine [Mass/Vol] 0.74 mg/dL 0.55-1.02 [facility] Comment on above: The validity of the calculated GFR & GFRAA in patients over 70 years has not been determined. Clinical correlation is essential. Serum or plasma low density lipoprotein (LDL) cholesterol measurement (mass/volume)Ordered By: Dr. Dai on 04-15-2023 Cholesterol in LDL [Mass/Vol] 30 mg/dL 0-130 [facility] Serum or plasma urea nitroge n measurement (mass/volume)Ordered By: Dr. Dai on 04-15-2023 Urea nitrogen [Mass/Vol] 16 mg/dL 7-18 [facility] Thin prep Papanicolaou smear with manual screeningOrdered By: Dr. aDi on 04-15-2023 Thin prep Papanicolaou smear with manual screening 19 U/L 15-37 [facility] Thin prep Papanicolaou smear with manual screening 7 5-15 [facility] Thin prep Papanicolaou smear with manual screening 29.4 mg/L NO RANGE EST. [facility] Urine creatinine measurement (mass/volume)Ordered By: Dr. Dai on 04-15-2023 Creatinine (U) [Mass/Vol] 212.00 mg/dL NO RANGE EST. [facility] Whole blood hemoglobin A1c/t otal hemoglobin ratio (mass fraction)Ordered By: Dr. Dai on 04-15-2023 HbA1c (Bld) [Mass fraction] 7.0 % 3.8-5.6 [facility] Comment on above: Normal < 5.7 % Predi abetic 5.7 - 6.4 % Diabetic >or= 6.5 % Please note range changes. Basophil percentageOrdered B y: Dr. Dai on 2023 Bilirubin [Mass/Vol] 0.70 mg/dL 0.20-1.00 [facility] Comment on above: For patients on eltr ombopag therapy, use of Dimension Noti TBIL is not recommended. Chloride [Moles/Vol] 106 mmol/L 98-107 [facility] Cholesterol [Mass/Vol] 113 mg/dL <200 [facility] Comment on above: <200 mg/dL Desirable 200-240 mg/dL Borderline >240 mg/dL High Risk Glucose [Mass/Vol] 143 mg/dL 74-[address] [facility] Comment on above: Fasting Glucose resu lt greater than or equal to 126 mg/dL suggests DIABETES MELLITUS per A.D.A. criteria. Potassium [Moles/Vol] 3.6 mmol/L 3.5-5.1 [facility] Protein [Mass/Vol] 6.9 g/dL 6.4-8.[address] [facility] Sodium [Moles/Vol] 141 mmol/L 136-[address] [facility] Triglyceride [Mass/Vol] 206 mg/dL <199 [facility] Comment on above: The drugs N-Acetylcy steine and Metamizole may falsely depress this assay.Serum Triglycerides Reference Interval Normal <150 mg/dL Borderline high 150 - 199 mg/dL High 200 - 499 mg/dL Very High > or = 500 mg/dL Laboratory - Chemistry and C hemistry - challengeOrdered By: Dr. Dai on 2023 ALP [Catalytic activity/Vol] 129 U/L 45-117 [facility] ALT [Catalytic activity/Vol] 38 U/L 13-56 [facility] CO2 [Moles/Vol] 27.0 mmol/L 21.0-32.0 [facility] Globulin (S) [Mass/Vol] 3.2 g/dL 2.2-4.2 [facility] Urea nitrogen/Creatinine [Mass ratio] 20.2 mg/mg 10-20 [facility] No Panel InformationOrdered By: Dr. Dai on 2023 Estimated GFR (MDRD) Amer 89 mL/min >60 [facility] Comment on above: GFR Calc Estimated GFR (MDRD) Non-Af Amer 74 mL/min >60 [facility] Comment on above: Non- GFR Calc Serum or plasma albumin orlin urement (mass/volume)Ordered By: Dr. Dai on 2023 Albumin [Mass/Vol] 3.7 g/dL 3.2-5.[address] [facility] Serum or plasma albumin/glob ulin mass ratioOrdered By: Dr. Dai on 2023 Albumin/Globulin [Mass ratio] 1.2 {ratio} 0.9-2.4 [facility] Serum or plasma calcium orlin urement (mass/volume)Ordered By: Dr. Dai on 2023 Calcium [Mass/Vol] 9.2 mg/dL 8.5-10.[address] [facility] Serum or plasma cholesterol in HDL measurement (mass/volume)Ordered By: Dr. Dai on 2023 Cholesterol in HDL [Mass/Vol] 41 mg/dL >40 [facility] Comment on above: The drugs N-Acetylcy steine and Metamizole may falsely depress this assay. Reference Range HDL <40 mg/dL Low HDL Cholesterol HDL >or= 60 mg/dL High HDL Cholesterol Serum or plasma cholesterol in VLDL measurement (mass/volume)Ordered By: Dr. Dai on 2023 Cholesterol in VLDL [Mass/Vol] 41 mg/dL 5-40 [facility] Serum or plasma creatinine m easurement (mass/volume)Ordered By: Dr. Dai on 2023 Creatinine [Mass/Vol] 0.84 mg/dL 0.55-1.02 [facility] Comment on above: The validity of the calculated GFR & GFRAA in patients over 70 years has not been determined. Clinical correlation is essential. Serum or plasma low density lipoprotein (LDL) cholesterol measurement (mass/volume)Ordered By: Dr. Dai on 2023 Cholesterol in LDL [Mass/Vol] 31 mg/dL 0-130 [facility] Serum or plasma urea nitroge n measurement (mass/volume)Ordered By: Dr. Dai on 2023 Urea nitrogen [Mass/Vol] 17 mg/dL 7-18 [facility] Thin prep Papanicolaou smear with manual screeningOrdered By: Dr. Dai on 2023 Thin prep Papanicolaou smear with manual screening 22 U/L 15-37 [facility] Thin prep Papanicolaou smear with manual screening 8 5-15 [facility] Whole blood hemoglobin A1c/t otal hemoglobin ratio (mass fraction)Ordered By: Dr. Dai on 2023 HbA1c (Bld) [Mass fraction] 6.8 % 3.8-5.6 [facility] Comment on above: Normal < 5.7 % Predi abetic 5.7 - 6.4 % Diabetic >or= 6.5 % Please note range changes. Glucose Glucometer (BldC) [M ass/Vol]Ordered By: Dr. Brooks on 10-09-2022 Glucose [Mass/Vol] 122 mg/dL 74-[address] [facility] Comment on above: MANAGEMENT OF PATIEN T CARE PER NURSING PROTOCOL Absolute lymphocyte countOrd ered By: Dr. Dai on 09-29-2022 Lymphocytes Auto (Unsp spec) [#/Vol] 1.70 10*3/uL 0.83-4.51 [facility] Basophil percentageOrdered B y: Dr. Dai on 09-29-2022 Basophils/100 WBC (Bld) 0.3 % 0-1 [facility] Bilirubin [Mass/Vol] 0.90 mg/dL 0.20-1.00 [facility] Comment on above: For patients on eltr ombopag therapy, use of Dimension Noti TBIL is not recommended. Chloride [Moles/Vol] 103 mmol/L 98-107 [facility] Eosinophils/100 WBC (Bld) 1.9 % 0-5 [facility] Glucose [Mass/Vol] 99 mg/dL 74-[address] [facility] Neutrophils (Bld) [#/Vol] 3.4 10*3/uL 2.0-7.7 [facility] Neutrophils/100 WBC (Bld) 58.8 % 47-70 [facility] Potassium [Moles/Vol] 4.0 mmol/L 3.5-5.1 [facility] Protein [Mass/Vol] 6.9 g/dL 6.4-8.[address] [facility] Sodium [Moles/Vol] 139 mmol/L 136-[address] [facility] WBC (Bld) [#/Vol] 5.7 10*3/uL 4.4-11.[address] [facility] Blood erythrocytes count (nu mber/volume)Ordered By: Dr. Dai on 09-29-2022 RBC (Bld) [#/Vol] 4.79 10*6/uL 4.2-5.4 [place] Blood hemoglobin measurement (mass/volume)Ordered By: Dr. Dai on 09-29-2022 Hemoglobin (Bld) [Mass/Vol] 13.2 g/dL 12.0-15.0 [facility] Blood lymphocytes/100 leukoc ytesOrdered By: Dr. Dai on 09-29-2022 Lymphocytes/100 WBC (Bld) 29.7 % 19-41 [facility] Blood monocytes/100 leukocyt esOrdered By: Dr. Dai on 09-29-2022 Monocytes/100 WBC (Bld) 9.1 % 0-10 [facility] Blood platelet mean volumeOr dered By: Dr. Dai on 09-29-2022 Platelet mean volume (Bld) [Entitic vol] 9.8 fL 6.2-12.0 [facility] Determination of erythrocyte mean corpuscular volume (MCV)Ordered By: Dr. Dai on 09-29-2022 MCV (RBC) [Entitic vol] 85.6 fL 81-99 [facility] Hematocrit Auto (Bld) [Volum e fraction]Ordered By: Dr. Dai on 09-29-2022 Hematocrit (Bld) [Volume fraction] 41.0 % 37-47 [facility] Laboratory - Chemistry and C hemistry - challengeOrdered By: Dr. Dai on 09-29-2022 ALP [Catalytic activity/Vol] 117 U/L 45-117 [facility] ALT [Catalytic activity/Vol] 37 U/L 13-56 [facility] CO2 [Moles/Vol] 29.0 mmol/L 21.0-32.0 [facility] Globulin (S) [Mass/Vol] 3.0 g/dL 2.2-4.2 [facility] Urea nitrogen/Creatinine [Mass ratio] 18.1 mg/mg 10-20 [facility] - Hematology and Cell countsOrdered By: Dr. Dai on 09-29-2022 Erythrocyte distribution width (RBC) [Entitic vol] 44.1 fL 35.1-43.9 [facility] Erythrocyte distribution width (RBC) [Ratio] 14.3 % 11.6-14.6 [facility] Immature granulocytes/100 WBC (Bld) 0.200 % 0.0-0.9 [facility] Comment on above: IG% - Immature Granu locytes (promyelocytes, myelocytes and metamyelocytes) > 1% indicates that a LEFT SHIFT is Present. MCH (RBC) [Entitic mass] 27.6 pg 27.0-32.0 [facility] Nucleated RBC/100 WBC (Bld) [Ratio] 0 % 0-5 [facility] MCHC Auto (RBC) [Mass/Vol]Or dered By: Dr. Dai on 09-29-2022 MCHC (RBC) [Mass/Vol] 32.2 g/dL 32-36 [facility] No Panel InformationOrdered By: Dr. Dai on 09-29-2022 Estimated GFR (MDRD) Amer 108 mL/min >60 [facility] Comment on above: GFR Calc Estimated GFR (MDRD) Non-Af Amer 89 mL/min >60 [facility] Comment on above: Non- GFR Calc Platelets bldOrdered By: Dr. Dai on 09-29-2022 Platelets (Bld) [#/Vol] 279 10*3/uL 150-450 [facility] Serum or plasma albumin orlin urement (mass/volume)Ordered By: Dr. Dai on 09-29-2022 Albumin [Mass/Vol] 3.9 g/dL 3.2-5.[address] [facility] Serum or plasma albumin/glob ulin mass ratioOrdered By: Dr. Dai on 09-29-2022 Albumin/Globulin [Mass ratio] 1.3 {ratio} 0.9-2.4 [facility] Serum or plasma calcium orlin urement (mass/volume)Ordered By: Dr. Dai on 09-29-2022 Calcium [Mass/Vol] 9.1 mg/dL 8.5-10.[address] [facility] Serum or plasma creatinine m easurement (mass/volume)Ordered By: Dr. Dai on 09-29-2022 Creatinine [Mass/Vol] 0.72 mg/dL 0.55-1.02 [facility] Comment on above: The validity of the calculated GFR & GFRAA in patients over 70 years has not been determined. Clinical correlation is essential. Serum or plasma urea nitroge n measurement (mass/volume)Ordered By: Dr. Dai on 09-29-2022 Urea nitrogen [Mass/Vol] 13 mg/dL 7-18 [facility] Thin prep Papanicolaou smear with manual screeningOrdered By: Dr. Dai on 09-29-2022 Thin prep Papanicolaou smear with manual screening 26 U/L 15-37 [facility] Thin prep Papanicolaou smear with manual screening 7 5-15 [facility] Whole blood hemoglobin A1c/t otal hemoglobin ratio (mass fraction)Ordered By: Dr. Dai on 09-29-2022 HbA1c (Bld) [Mass fraction] 6.8 % 3.8-5.6 [facility] Comment on above: Normal < 5.7 % Predi abetic 5.7 - 6.4 % Diabetic >or= 6.5 % Please note range changes. PROTEIN ELECTROPHORESIS , SE RUM [CCL]on 08-18-2022 Albumin [Mass/Vol] 3.65 g/dL Normal 3.37-4.23 [facility] Comment on above: Performed By: #### 2 [id number] #### [facility],[address] [place] [place] [address] 19085 Alpha 1 Globulin 0.20 g/dL Normal 0.18-0.31 [facility] Comment on above: Performed By: #### 2 84136 #### [facility],[address] [place] [address] 38697 Alpha 2 Globulin 0.68 g/dL Normal 0.52-0.97 [facility] Comment on above: Performed By: #### 2 38286 #### [facility],[address] [place] [address] 45373 Beta Globulin 0.94 g/dL Normal 0.84-1.36 [facility] Comment on above: Performed By: #### 2 21095 #### [facility],[address] [place] [address] 20047 Gamma Globulin 0.74 g/dL Normal 0.70-1.44 [facility] Comment on above: Performed By: #### 2 13655 #### [facility],[address] [place] [address] 68828 M Protein Location See Below Normal [facility] Comment on above: Result Comment: Not Applicable. Performed By: #### 2 18177 #### [facility],[address] [place] [address] 92983 M-Protein Concentration 0.00 g/dL Normal <=0.00 [facility] Comment on above: Performed By: #### 2 93987 #### [facility],[address] [place] [address] 45093 Protein [Mass/Vol] 6.2 g/dL Low 6.3-8.0 [facility] Comment on above: Result Comment: [facility] [address] [place] [address] Josafat Jose III, M.D. [id number] Performed By: #### 2 08940 #### [facility],[address] [place] [address] 58392 SPE Staff Review Reviewed by Wes Sumner MD, Ph.D ([id number]) Normal [facility] Comment on above: Performed By: #### 2 78676 #### [facility],[address] [place] [place] [address] 69506 PROTEIN ELECTROPHORESIS UR W / PHIL [CCL]on 08-18-2022 Albumin 24.61 % Normal [facility] Comment on above: Performed By: #### 2 21667 #### [facility],[address] [place] [place] [address] 52374 Alpha 1 Globulin 4.29 % Normal [facility] Comment on above: Performed By: #### 2 26227 #### [facility],[address] [place] [place] [address] 57574 Alpha 2 Globulin 24.78 % Normal [facility] Comment on above: Performed By: #### 2 94128 #### [facility],[address] [place] [place] [address] 53808 Beta Globulin 21.88 % Normal [facility] Comment on above: Performed By: #### 2 12316 #### [facility],[address] [place] [place] [address] 57663 Comment Monoclonal Protein analysis (immunofixation) is not indicated. Normal [facility] Comment on above: Result Comment: [facility] [address] [place] [address] Josafat Jose III, M.D. [id number] Performed By: #### 2 98541 #### [facility],[address] [place] [place] [address] 07809 Gamma Globulin 24.44 % Normal [facility] Comment on above: Performed By: #### 2 63962 #### [address] [address] Interpretation No definitive M protein is identified on protein electrophoresis. Normal No definitive M protein i [facility] Comment on above: Performed By: #### 2 08655 #### [facility],[address] [place] [place] [address]1890 Performed By: #### 2 69946 #### [facility],[address] [place] [place] [address] 81016 Protein (U) [Mass/Vol] 8 mg/dL Normal 0-20 [facility] Comment on above: Performed By: #### 2 92224 #### [address] [address] Staff Review Reviewed by Dr. Mark Harding MD Normal [facility] Comment on above: Performed By: #### 2 12724 #### [facility],[address] [place] [place] [address] 29587 VITAMIN D, 1,25 - DIHYDROXY [CCL]on 07-27-2022 Vit D,1,25 Dihydroxy 35.4 pg/mL Normal 19.9-79.3 [facility] Comment on above: Result Comment: [facility] [address] [place] [address] Josafat Jose III, M.D. [id number] Performed By: #### 2 12020 #### [facility],[address] [place] [address] 53427 MAGNESIUMon 07-25-2022 Magnesium [Mass/Vol] 1.9 mg/dL Normal 1.8 - 2.4 [facility] Comment on above: Performed By: #### 2 43018 #### [facility],[address] [place] [address] 71810 PTH, INTACT [CCL]on 07-25-20 22 PTH, Intact 43 pg/mL Normal 15-65 [facility] Comment on above: Result Comment: [facility] [address] [place] [address] Josafat Jose III, M.D. [id number] Performed By: #### 2 57705 #### [address] [address] VITAMIN D, 25 HYDROXYon 07-09 VitD 50.20 ng/mL Normal 30.00 - 100 [facility] Comment on above: Result Comment: 25-O [...] D2 Not Established Performed By: #### 2 32893 #### [facility],[address] [place] [place] [address] 15300 ALKALINE PHOSPHATASE ISOENZ [CCL]on 07-22-2022 ALK PHOS BONE % 58.6 % Normal 10.7-68.3 [facility] Comment on above: Performed By: #### 2 14882 #### [facility],[address] [place] [place] [address] 11659 ALK PHOS LIVER % 31.4 % Normal 26.0-86.2 [facility] Comment on above: Performed By: #### 2 62507 #### [facility],[address] [place] [address] 27417 ALP [Catalytic activity/Vol] 136 U/L High 34-123 [facility] Comment on above: Result Comment: [facility] [address] [place] [address] Josafat Jose III, M.D. [id number] Performed By: #### 2 86492 #### [facility],[address] [place] [address] 47990 BONE FRACTION 79.7 U/L High 12.9-52.6 [facility] Comment on above: Performed By: #### 2 83677 #### [facility],[address] [place] [place] [address] 19002 INTESTINE FRACTION 13.6 U/L Normal 0.0-16.3 [facility] Comment on above: Result Comment: Caitlin ents who are blood group B or O secretors, or those who have consumed a fatty meal a few hours before the blood collection, may have elevated alkaline phosphatase intestinal fraction. Clinical correlation is required. Performed By: #### 2 29503 #### [facility],[address] [place] [place] [address] 31218 LIVER FRACTION 42.7 U/L Normal 16.0-69.3 [facility] Comment on above: Performed By: #### 2 32541 #### [facility],[address] [place] [place] [address] 55770 Neutrophils/100 WBC (Bld) 10.0 % Normal 0.0-24.2 [facility] Comment on above: Performed By: #### 2 21027 #### [facility],[address] [place] [place] [address] 82021 HGB A1C [CCL]on 07-07-2022 HbA1c (Bld) [Mass fraction] 7.0 % High 4.3-5.6 [facility] Comment on above: Result Comment: Amer [place] Diabetes Association guidelines indicate that patients with HgbA1c in the range 5.7-6.4% are at increased risk for development of diabetes, and intervention by lifestyle modification may be beneficial. HgbA1c greater or equal to 6.5% is considered diagnostic of diabetes. Performed By: #### 2 75736 #### [address] [address] Hemoglobin A0 154 mg/dL Normal [facility] Comment on above: Result Comment: eAG: (Estimated average glucose) is a calculated value from HgbA1c and is roofing sales representative of the average blood glucose level in the last 2-3 month period. [facility] [employer] [address] [place] [address] Josafat Jose III, M.D. [id number] Performed By: #### 2 18291 #### [address] [address] MICROALBUMIN RANDOM URINE W/ CREATININEon 07-07-2022 Albumin Urine Random <12.0 Normal [facility] Comment on above: Performed By: #### 2 29813 #### [address] [address] Albumin/Creat Ratio <12 Normal <30 [facility] Comment on above: Result Comment: Adul t Male and Female Nephrotic Criteria: <30 mg/g is considered normal to mildly increased 30-300 mg/g is considered moderately increased >300 mg/g is considered severely increased KDIGO. (2013). KDIGO 2012 Clinical Practice Guideline for the Evaluation and Management of Chronic Kidney Disease. Official Journal of the International Society of Nephrology, 3(1), 1-150. [facility] [employer] [address] [place] [address] Josafat Jose III, M.D. [id number] Performed By: #### 2 29211 #### [address] [address] Creatinine,Urine,Ran 103.9 mg/dL Normal 20.0-300.0 [facility] Comment on above: Performed By: #### 2 10283 #### [facility],[address] [place] [address] 57782 CMP with eGFRon 07-04-2022 AGE 57 years Normal [facility] Comment on above: Performed By: #### 2 91062 #### [facility],[address] [place] [address] 23063 Albumin [Mass/Vol] 3.8 g/dL Normal 3.4 - 5.0 [facility] Comment on above: Performed By: #### 2 44530 #### [facility],[address] [place] [address] 99471 Albumin/Globulin [Mass ratio] 1.2 {ratio} Normal 0.9 - 1.6 [facility] Comment on above: Performed By: #### 2 25109 #### [facility],[address] [place] [address] 63074 ALK PHOS 125 U/L High 46 - 116 [facility] Comment on above: Performed By: #### 2 31829 #### [facility],[address] [place] [address] 67004 ALT [Catalytic activity/Vol] 50 U/L Normal 14 - 59 [facility] Comment on above: Performed By: #### 2 58757 #### [facility],[address] [place] [address] 16837 Anion gap [Moles/Vol] 12 mmol/L Normal 10 - 20 [facility] Comment on above: Performed By: #### 2 97834 #### [facility],[address] [place] [address] 40617 AST [Catalytic activity/Vol] 27 U/L Normal 13 - 39 [facility] Comment on above: Performed By: #### 2 45515 #### [facility],[address] [place] [address] 21903 B/C RATIO 15 ratio Normal 0 - 30 [facility] Comment on above: Performed By: #### 2 17681 #### [facility],[address] [place] [place] [address] 56162 Bilirubin [Mass/Vol] 0.7 mg/dL Normal 0.2 - 1.0 [facility] Comment on above: Performed By: #### 2 52571 #### [facility],[address] [place] [place] [address] 65437 Calcium [Mass/Vol] 8.9 mg/dL Normal 8.5 - 10.1 [facility] Comment on above: Performed By: #### 2 51475 #### [facility],[address] [place] [place] [address] 50948 Chloride [Moles/Vol] 106 mmol/L Normal 98 - 107 [facility] Comment on above: Performed By: #### 2 69716 #### [facility],[address] [place] [address] 19015 CMP with eGFR Normal [facility] Comment on above: Result Comment: COMP REHENSIVE METABOLIC PANEL Performed By: #### 2 83694 #### [facility],[address] [place] [place] [address] 40174 CO2 [Moles/Vol] 29.6 mmol/L Normal 21.0 - 32.0 [facility] Comment on above: Performed By: #### 2 43353 #### [facility],[address] [place] [place] [address] 37100 Creatinine [Mass/Vol] 0.74 mg/dL Normal 0.55 - 1.02 [facility] Comment on above: Performed By: #### 2 54141 #### [facility],[address] [place] [place] [address] 13075 GFR/1.73 sq M.predicted among non-blacks MDRD (S/P/Bld) [Vol rate/Area] mL/min/{1.73_m2} Normal 60 - 999 [facility] Comment on above: Performed By: #### 2 18174 #### [facility],[address] [place] [place] [address] 58408 Result Comment: ACCO RDING TO THE NATIONAL KIDNEY DISEASE EDUCATION PROGRAM(NKDE), A NORMAL eGFR IS A VALUE GREATER THAN OR EQUAL TO 60 ML/MIN/1.73 SQ METERS. CHRONIC KIDNEY DISEASE: <60mL/MIN/1.73 SQ METERS KIDNEY FAILURE: <15mL/MIN/1.73 SQ METERS THIS TEST SHOULD ONLY BE USED FOR PATIENTS 18 YEARS OF AGE AND OLDER. Globulin (S) [Mass/Vol] 3.2 g/dL Normal 1.5 - 3.8 [facility] Comment on above: Performed By: #### 2 74946 #### [address] [address] Glucose [Mass/Vol] 120 mg/dL High 74 - 106 [facility] Comment on above: Performed By: #### 2 74603 #### [address] [address] Potassium [Moles/Vol] 4.1 mmol/L Normal 3.5 - 5.1 [facility] Comment on above: Performed By: #### 2 90182 #### [facility],[address] [place] [address] 67618 Protein [Mass/Vol] 7.0 g/dL Normal 6.4 - 8.2 [facility] Comment on above: Performed By: #### 2 73803 #### [facility],[address] [place] [address] 12303 Sodium [Moles/Vol] 143 mmol/L Normal 136 - 145 [facility] Comment on above: Performed By: #### 2 39870 #### [facility],[address] [place] [address] 65518 Urea nitrogen [Mass/Vol] 11 mg/dL Normal 7 - 18 [facility] Comment on above: Performed By: #### 2 73361 #### [address] [address] LIPID PROFILEon 07-04-2022 Cholesterol [Mass/Vol] 118 mg/dL Normal 0 - 240 [facility] Comment on above: Performed By: #### 2 98683 #### [facility],[address] [place] [place] [address] 62070 Cholesterol in HDL [Mass/Vol] 43 mg/dL Normal 40 - 60 [facility] Comment on above: Performed By: #### 2 03860 #### [facility],[address] [place] [place] [address] 98044 Cholesterol in LDL [Mass/Vol] 40 mg/dL Normal 0 - 129 [facility] Comment on above: Performed By: #### 2 05688 #### [facility],[address] [place] [address] 14043 Cholesterol.total/Ramonita sterol in HDL [Mass ratio] 2.7 {ratio} Normal 0.0 - 5.0 [facility] Comment on above: Performed By: #### 2 74582 #### [facility],[address] [place] [address] 29733 Lipid 1996 panel Normal [facility] Comment on above: Result Comment: LIPI D PROFILE Performed By: #### 2 43879 #### [facility],[address] [place] [address] 87181 Triglyceride [Mass/Vol] 175 mg/dL High 0 - 150 [facility] Comment on above: Performed By: #### 2 70718 #### [facility],[address] [place] [address] 61178 TSHon 07-04-2022 TSH Qn 0.70 m[IU]/L Normal 0.35 - 3.74 [facility] Comment on above: Performed By: #### 2 68788 #### [facility],[address] [place] [place] [address] 87351 CMP with eGFR [CCL]on 2021 Albumin [Mass/Vol] 4.3 g/dL Normal 3.9-4.9 [facility] Comment on above: Performed By: #### 2 59805 #### [facility],[address] [place] [place] [address] 05002 ALP [Catalytic activity/Vol] 97 U/L Normal 34-123 [facility] Comment on above: Performed By: #### 2 54816 #### [facility],[address] [place] [address] 83727 ALT [Catalytic activity/Vol] 29 U/L Normal 7-38 [facility] Comment on above: Performed By: #### 2 92664 #### [facility],[address] [place] [address] 90940 Anion gap [Moles/Vol] 10 mmol/L Normal 9-18 [facility] Comment on above: Performed By: #### 2 83628 #### [facility],[address] [place] [address] 11526 AST [Catalytic activity/Vol] 24 U/L Normal 13-35 [facility] Comment on above: Performed By: #### 2 29426 #### [facility],[address] [place] [place] [address] 18733 Bilirubin [Mass/Vol] 0.3 mg/dL Normal 0.2-1.3 [facility] Comment on above: Performed By: #### 2 38171 #### [facility],[address] [place] [address] 25221 Calcium [Mass/Vol] 9.3 mg/dL Normal 8.5-10.2 [facility] Comment on above: Performed By: #### 2 27415 #### [facility],[address] [place] [place] [address] 84236 Chloride [Moles/Vol] 106 mmol/L High 97-105 [facility] Comment on above: Performed By: #### 2 60091 #### [facility],[address] [place] [address] 65917 CO2 [Moles/Vol] 25 mmol/L Normal 22-30 [facility] Comment on above: Performed By: #### 2 88048 #### [facility],[address] [place] [address] 18808 Creatinine [Mass/Vol] 0.70 mg/dL Normal 0.58-0.96 [facility] Comment on above: Performed By: #### 2 81397 #### [facility],[address] [place], [place] [id number] Estimated GlomerularFiltration Rate 101 mL/min/1.m??? Normal >=60 [facility] Comment on above: Result Comment: Aleshia mated [...] eGFR may not accurately reflect actual GFR. [facility] [address] [place] [address] Josafat Jose III, M.D. [id number] Performed By: #### 2 19605 #### [facility],[address] [place] [place] [address] 94375 Glucose [Mass/Vol] 116 mg/dL High 74-99 [facility] Comment on above: Result Comment: The [place] Diabetes Association (ADA) provides guidance for cutoff [...] Standards of Medical Care in Diabetes 2016, [place] Diabetes Association. Diabetes Care. 2016.39(Suppl 1). Performed By: #### 2 09607 #### [facility],[address] [place] [place] [address] 83849 Potassium [Moles/Vol] 4.6 mmol/L Normal 3.7-5.1 [facility] Comment on above: Performed By: #### 2 08571 #### [facility],[address] [place] [place] [address] 22114 Protein [Mass/Vol] 6.7 g/dL Normal 6.3-8.0 [facility] Comment on above: Performed By: #### 2 66052 #### [facility],[address] [place] [place] [address] 50590 Sodium [Moles/Vol] 141 mmol/L Normal 136-144 [facility] Comment on above: Performed By: #### 2 15559 #### [facility],[address] [place] [place] [address] 49970 Urea nitrogen [Mass/Vol] 14 mg/dL Normal 7-21 [facility] Comment on above: Performed By: #### 2 41882 #### [facility],[address] [place] [place] [address] 56120 HGB A1C [CCL]on 04-04-2022 HbA1c (Bld) [Mass fraction] 6.2 % High 4.3-5.6 [facility] Comment on above: Result Comment: [place] Diabetes Association guidelines indicate that patients with HgbA1c in the range 5.7-6.4% are at increased risk for development of diabetes, and intervention by lifestyle modification may be beneficial. HgbA1c greater or equal to 6.5% is considered diagnostic of diabetes. Performed By: #### 2 57824 #### [facility],[address] [place] [place] [address] 00685 Hemoglobin A0 131 mg/dL Normal [facility] Comment on above: Result Comment: eAG: (Estimated average glucose) is a calculated value from HgbA1c and is roofing sales representative of the average blood glucose level in the last 2-3 month period. [facility] [employer] [address] [place] [address] Josafat Jose III, M.D. [id number] Performed By: #### 2 54979 #### [facility],[address] [place] [place] [address] 01589 HGB A1C [CCL]on 01-11-2022 HbA1c (Bld) [Mass fraction] 6.3 % High 4.3-5.6 [facility] Comment on above: Result Comment: Amer [place] Diabetes Association guidelines indicate that patients with HgbA1c in the range 5.7-6.4% are at increased risk for development of diabetes, and intervention by lifestyle modification may be beneficial. HgbA1c greater or equal to 6.5% is considered diagnostic of diabetes. Performed By: #### 2 37381 #### [facility],[address] [place] [place] [address] 62234 Hemoglobin A0 134 mg/dL Normal [facility] Comment on above: Result Comment: eAG: (Estimated average glucose) is a calculated value from HgbA1c and is roofing sales representative of the average blood glucose level in the last 2-3 month period. [facility] [address] [place] [address] Josafat Jose III, M.D. [id number] Performed By: #### 2 34074 #### [facility],[address] [place] [place] [address] 41125 CMP with eGFRon 01-10-2022 AGE 56 years Normal [facility] Comment on above: Performed By: #### 2 06970 #### [facility],[address] [place] [place] [address] 81272 Albumin [Mass/Vol] 3.8 g/dL Normal 3.4 - 5.0 [facility] Comment on above: Performed By: #### 2 79466 #### [facility],[address] [place] [place] [address] 71569 Albumin/Globulin [Mass ratio] 1.3 {ratio} Normal 0.9 - 1.6 [facility] Comment on above: Performed By: #### 2 85294 #### [facility],[address] [place] [place] [address] 14743 ALK PHOS 97 U/L Normal 46 - 116 [facility] Comment on above: Performed By: #### 2 11299 #### [facility],[address] [place] [place] [address] 69432 ALT [Catalytic activity/Vol] 64 U/L High 14 - 59 [facility] Comment on above: Performed By: #### 2 12481 #### [facility],[address] [place] [place] [address] 40667 Anion gap [Moles/Vol] 13 mmol/L Normal 10 - 20 [facility] Comment on above: Performed By: #### 2 94195 #### [facility],[address] [place] [place] [address] 30964 AST [Catalytic activity/Vol] 26 U/L Normal 13 - 39 [facility] Comment on above: Performed By: #### 2 29091 #### [facility],[address] [place] [place] [address] 69805 B/C RATIO 20 ratio Normal 0 - 30 [facility] Comment on above: Performed By: #### 2 82330 #### [facility],[address] [place] [place] [address] 66486 Bilirubin [Mass/Vol] 0.5 mg/dL Normal 0.2 - 1.0 [facility] Comment on above: Performed By: #### 2 42061 #### [facility],[address] [place] [place] [address] 32425 Calcium [Mass/Vol] 8.6 mg/dL Normal 8.5 - 10.1 [facility] Comment on above: Performed By: #### 2 97081 #### [facility],[address] [place] [address] 51277 Chloride [Moles/Vol] 105 mmol/L Normal 98 - 107 [facility] Comment on above: Performed By: #### 2 09677 #### [facility],[address] [place] [address] CMP with eGFR Normal [facility] Comment on above: Result Comment: COMP REHENSIVE METABOLIC PANEL Performed By: #### 2 04539 #### [facility],[address] [place] [address] CO2 [Moles/Vol] 27.3 mmol/L Normal 21.0 - 32.0 [facility] Comment on above: Performed By: #### 2 34654 #### [facility],[address] [place] [address] Creatinine [Mass/Vol] 0.69 mg/dL Normal 0.55 - 1.02 [facility] Comment on above: Performed By: #### 2 76764 #### [facility],[address] [place] [address] GFR/1.73 sq M.predicted among non-blacks MDRD (S/P/Bld) [Vol rate/Area] mL/min/{1.73_m2} Normal 60 - 999 [facility] Comment on above: Performed By: #### 2 55742 #### [facility],[address] [place] [address] Result Comment: ACCO RDING TO THE NATIONAL KIDNEY DISEASE EDUCATION PROGRAM(NKDE), A NORMAL eGFR IS A VALUE GREATER THAN OR EQUAL TO 60 ML/MIN/1.73 SQ METERS. CHRONIC KIDNEY DISEASE: <60mL/MIN/1.73 SQ METERS KIDNEY FAILURE: <15mL/MIN/1.73 SQ METERS THIS TEST SHOULD ONLY BE USED FOR PATIENTS 18 YEARS OF AGE AND OLDER. Globulin (S) [Mass/Vol] 3.0 g/dL Normal 1.5 - 3.8 [facility] Comment on above: Performed By: #### 2 39104 #### [facility],[address] [place] [address] Glucose [Mass/Vol] 117 mg/dL High 74 - 106 [facility] Comment on above: Performed By: #### 2 93574 #### [facility],[address] [place] [place] [address] 07308 Potassium [Moles/Vol] 4.5 mmol/L Normal 3.5 - 5.1 [facility] Comment on above: Performed By: #### 2 78392 #### [facility],[address] [place] [place] [address] 05528 Protein [Mass/Vol] 6.8 g/dL Normal 6.4 - 8.2 [facility] Comment on above: Performed By: #### 2 50997 #### [facility],[address] [place] [place] [address] 32891 Sodium [Moles/Vol] 141 mmol/L Normal 136 - 145 [facility] Comment on above: Performed By: #### 2 17711 #### [facility],[address] [place] [place] [address] 21280 Urea nitrogen [Mass/Vol] 14 mg/dL Normal 7 - 18 [facility] Comment on above: Performed By: #### 2 96758 #### [facility],[address] [place] [place] [address] 44103 LIPID PROFILEon 01-10-2022 Cholesterol [Mass/Vol] 117 mg/dL Normal 0 - 240 [facility] Comment on above: Performed By: #### 2 13122 #### [facility],[address] [place] [place] [address] 40024 Cholesterol in HDL [Mass/Vol] 53 mg/dL Normal 40 - 60 [facility] Comment on above: Performed By: #### 2 58061 #### [facility],[address] [place] [place] [address] 19833 Cholesterol in LDL [Mass/Vol] 43 mg/dL Normal 0 - 129 [facility] Comment on above: Performed By: #### 2 02521 #### [facility],[address] [place] [place] [address] 47569 Cholesterol.total/Ramonita sterol in HDL [Mass ratio] 2.2 {ratio} Normal 0.0 - 5.0 [facility] Comment on above: Performed By: #### 2 34506 #### [facility],[address] [place] [place] [address] 15027 Lipid 1996 panel Normal [facility] Comment on above: Result Comment: LIPI D PROFILE Performed By: #### 2 60135 #### [facility],[address] [place] [place] [address] 85822 Triglyceride [Mass/Vol] 107 mg/dL Normal 0 - 150 [facility] Comment on above: Performed By: #### 2 94994 #### [facility],[address] [place] [place] [address] 07074 TSHon 01-10-2022 TSH Qn 1.04 m[IU]/L Normal 0.35 - 3.74 [facility] Comment on above: Performed By: #### 2 03696 #### [facility],[address] [place] [place] [address] 88930 VITAMIN D, 25 HYDROXYon 03- VitD 59.90 ng/mL Normal 30.00 - 100 [facility] Comment on above: Result Comment: 25-O [...] D2 Not Established Performed By: #### 2 98043 #### [facility],[address] [place] [place] [address] 82211 HGB A1C [CCL]on 09-22-2021 Glucose [Mass/Vol] 146 mg/dL Normal [facility] Comment on above: Result Comment: eAG: (Estimated average glucose) is a calculated value from HgbA1c and is roofing sales representative of the average blood glucose level in the last 2-3 month period. [facility] [address] [place] [address] Josafat Jose III, M.D. [id number] Performed By: #### 2 99616 #### [facility],[address] [place] [address] HbA1c (Bld) [Mass fraction] 6.7 % High 4.3-5.6 [facility] Comment on above: Result Comment: [facility] Diabetes Association guidelines indicate that patients with HgbA1c in the range 5.7-6.4% are at increased risk for development of diabetes, and intervention by lifestyle modification may be beneficial. HgbA1c greater or equal to 6.5% is considered diagnostic of diabetes. Performed By: #### 2 97147 #### [facility],[address] [place] [address] Hemoglobin A1con 09-22-2021 Glucose [Mass/Vol] 146 mg/dL Normal [facility] Comment on above: Performed By: #### H BA1C #### [facility]ine [facility] [address] [place] [address] HbA1c (Bld) [Mass fraction] 6.7 % High 4.3-5.6 [facility] Comment on above: Performed By: #### H BA1C #### [facility] [address] [place] [address] CMP with eGFRon 09-20-2021 AGE 56 years Normal [facility] Comment on above: Performed By: #### 2 35917 #### [facility],[address] [place], [place] [id number] Albumin [Mass/Vol] 4.0 g/dL Normal 3.4 - 5.0 [facility] Comment on above: Performed By: #### 2 47900 #### [place] [id number] Albumin/Globulin [Mass ratio] 1.3 {ratio} Normal 0.9 - 1.6 [facility] Comment on above: Performed By: #### 2 14134 #### [facility],[address] [place], [place] [id number] ALK PHOS 96 U/L Normal 46 - 116 [facility] Comment on above: Performed By: #### 2 18050 #### [facility],[address] [place], [place] [id number] ALT [Catalytic activity/Vol] 71 U/L High 14 - 59 [facility] Comment on above: Performed By: #### 2 52138 #### [facility],[address] [place] [address] Anion gap [Moles/Vol] 13 mmol/L Normal 10 - 20 [facility] Comment on above: Performed By: #### 2 44153 #### [facility],[address] [place] [address] AST [Catalytic activity/Vol] 33 U/L Normal 13 - 39 [facility] Comment on above: Performed By: #### 2 30287 #### [facility],[address] [place] [address] B/C RATIO 17 ratio Normal 0 - 30 [facility] Comment on above: Performed By: #### 2 46569 #### [facility],[address] [place], [place] [address] Bilirubin [Mass/Vol] 0.7 mg/dL Normal 0.2 - 1.0 [facility] Comment on above: Performed By: #### 2 34490 #### [facility],[address] [place], [place] [address] Calcium [Mass/Vol] 9.0 mg/dL Normal 8.5 - 10.1 [facility] Comment on above: Performed By: #### 2 97709 #### [facility],[address] [place], [place] [address] Chloride [Moles/Vol] 105 mmol/L Normal 98 - 107 [facility] Comment on above: Performed By: #### 2 48745 #### [facility],[address] [place], [place] [id number] CMP with eGFR Normal [facility] Comment on above: Result Comment: COMP REHENSIVE METABOLIC PANEL Performed By: #### 2 60931 #### [facility],[address] [place], [place] [address] CO2 [Moles/Vol] 28.6 mmol/L Normal 21.0 - 32.0 [facility] Comment on above: Performed By: #### 2 49409 #### [facility],[address] [place], [place] [id number] Creatinine [Mass/Vol] 0.89 mg/dL Normal 0.55 - 1.02 [facility] Comment on above: Performed By: #### 2 52968 #### [facility],[address] [place] [address] GFR/1.73 sq M.predicted among non-blacks MDRD (S/P/Bld) [Vol rate/Area] mL/min/{1.73_m2} Normal 60 - 999 [facility] Comment on above: Performed By: #### 2 03257 #### [facility],[address] [place] [address] Result Comment: ACCO RDING TO THE NATIONAL KIDNEY DISEASE EDUCATION PROGRAM(NKDE), A NORMAL eGFR IS A VALUE GREATER THAN OR EQUAL TO 60 ML/MIN/1.73 SQ METERS. CHRONIC KIDNEY DISEASE: <60mL/MIN/1.73 SQ METERS KIDNEY FAILURE: <15mL/MIN/1.73 SQ METERS THIS TEST SHOULD ONLY BE USED FOR PATIENTS 18 YEARS OF AGE AND OLDER. Globulin (S) [Mass/Vol] 3.2 g/dL Normal 1.5 - 3.8 [facility] Comment on above: Performed By: #### 2 39999 #### [facility],[address] [place] [address] 38053 Glucose [Mass/Vol] 119 mg/dL High 74 - 106 [facility] Comment on above: Performed By: #### 2 16014 #### [facility],[address] [place] [address] 73043 Potassium [Moles/Vol] 4.3 mmol/L Normal 3.5 - 5.1 [facility] Comment on above: Performed By: #### 2 21851 #### [facility],[address] [place] [address] Protein [Mass/Vol] 7.2 g/dL Normal 6.4 - 8.2 [facility] Comment on above: Performed By: #### 2 21237 #### [facility],[address] [place] [address] Sodium [Moles/Vol] 142 mmol/L Normal 136 - 145 [facility] Comment on above: Performed By: #### 2 56759 #### [facility],[address] [place] [address] Urea nitrogen [Mass/Vol] 15 mg/dL Normal 7 - 18 [facility] Comment on above: Performed By: #### 2 30085 #### [facility],[address] [place] [address] Laboratory - Chemistry and C hemistry - challengeon 07-16-2021 Albumin/Creatinine DL <= 20 mg/L (U) [Mass ratio] - Normal [facility], [facility], [facility] Creatinine (U) [Mass/Vol] - Normal [facility].; [facility], [facility]. Laboratory - Urinalysison Protein Ql (U) - Normal [facility], [facility]. Hemoglobin A1con 07-08-2021 Glucose [Mass/Vol] 160 mg/dL Normal [facility] Comment on above: Performed By: #### H BA1C #### [facility] [address] [place], [place] [address] HbA1c (Bld) [Mass fraction] 7.2 % High 4.3-5.6 [facility] Comment on above: Performed By: #### H BA1C #### [facility] [address] [place], [place] [address] Laboratory - Chemistry and C hemistry - challengeon 07-06-2021 Albumin [Mass/Vol] 3.7 g/dL Normal 3.4 - 5.0 g/dL [facility].; [facility], [facility]. Albumin [Mass/Vol] 1.1 g/dL Normal 0.9 - 1.6 [facility], [facility].; [employer] [facility], [employer]. ALP [Catalytic activity/Vol] 85 U/L Normal 46 - 116 U/L [facility].; [place] [facility], [facility]. ALT [Catalytic activity/Vol] 37 U/L Normal 14 - 59 U/L [facility].; [facility], [facility]. ALT No additional P-5'-P [Catalytic activity/Vol] 37 U/L Normal 14 - 59 U/L [facility].; [place] [place] [employer] [facility], [place]. AST [Catalytic activity/Vol] 20 U/L Normal 13 - 39 U/L [facility].; [employer]. Bilirubin [Mass/Vol] 0.4 mg/dL Normal 0.2 - 1 .0 mg/dL [facility].; [employer], [place]. Calcium [Mass/Vol] 8.4 mg/dL Abnormal 8.5 - 10. 1 mg/dL [facility].; [employer], [place]. Chloride [Moles/Vol] 106 mmol/L Normal 98 - 10 7 mmol/L [facility].; [employer], [place]. Cholesterol [Mass/Vol] 123 mg/dL Normal 0 - 2 40 mg/dL [facility].; [employer], [place]. Cholesterol in HDL [Mass or moles/Vol] 55 mg/dL Normal 40 - 60 mg/dL [facility], [facility].; [employer], [place]. Cholesterol in LDL [Mass/Vol] 46 mg/dL Normal 0 - 129 mg/dL [place] [facility], [facility].; [employer], [place]. Cholesterol.total/Ramonita sterol in HDL [Mass ratio] 2.2 {ratio} Normal 0.0 - 5.0 [facility].; [employer], [place]. CO2 [Moles/Vol] 26.9 mmol/L Normal 21.0 - 32.0 mmol/L [facility].; [facility], [facility] Comprehensive metabolic 2000 panel CMP with eGFR Normal [facility]; [facility], [facility] Creatinine [Mass/Vol] 0.85 mg/dL Normal 0.55 - 1.02 mg/dL [facility].; [facility], [facility] GFR/1.73 sq M.predicted among blacks MDRD (S/P/Bld) [Vol rate/Area] mL/min/{1.73_m2} Normal 60 - 999 {ML/MINUTE} [facility].; [facility], [facility]. GFR/1.73 sq M.predicted MDRD (S/P/Bld) [Vol rate/Area] mL/min/{1.73_m2} Normal 60 - 999 {ML/MINUTE} [facility], [facility].; [facility], [facility] Globulin (S) [Mass/Vol] 3.3 g/dL Normal 1.5 - 3.8 g/dL [facility]; [facility], [facility]. Glucose [Mass/Vol] 139 mg/dL Abnormal 74 - 106 mg/dL [facility].; [facility], [facility] Lipid 1996 panel LIPID PROFILE Normal [facility]; [facility], [facility] Potassium [Moles/Vol] 3.7 mmol/L Normal 3.5 - 5.1 mmol/L [facility]; [facility], [facility] Protein [Mass/Vol] 7.0 g/dL Normal 6.4 - 8.2 g/dL [facility], [facility].; [facility], [facility]. Sodium [Moles/Vol] 142 mmol/L Normal 136 - 145 mmol/L [facility], [facility]; [facility], [facility] Triglyceride [Mass/Vol] 112 mg/dL Normal 0 - 150 mg/dL [facility], [facility].; [facility], [facility]. TSH Qn 1.02 m[IU]/L Normal 0.35 - 3.74 {uIU/ml} [facility], [facility]; [facility], [facility] Urea nitrogen [Mass/Vol] 9 mg/dL Normal 7 - 18 mg/dL [employer] Urea nitrogen/Creatinine [Mass ratio] 11 {ratio} Normal 0 - 30 {ratio} [employer]. No Panel Informationon 07-06 13 mmol/L Normal 10 - 20 mmol/L [employer]. 56 {years} Normal [employer]. 7.2 % Abnormal 4.3 - 5.6 % [employer]. Work Phone: 160 mg/dL Normal [employer] Work Phone: Laboratory - Hematology and Cell countson 06-25-2021 HbA1c (Bld) [Mass fraction] - Normal 4.6 - 7.1 % [employer]. Laboratory - Hematology and Cell countson 04-15-2021 HbA1c (Bld) [Mass fraction] 7.4 % Abnormal 4.6 - 7.1 % [employer] HbA1c (Bld) [Mass fraction] - Normal 4.6 - 7.1 % [employer]. Laboratory - Hematology and Cell countson 12-17-2020 HbA1c (Bld) [Mass fraction] 7.3 % Abnormal 4.6 - 7.1 % [employer]. Laboratory - Chemistry and C hemistry - challengeon 08-30-2020 Albumin [Mass/Vol] 4.0 g/dL Normal 3.4 - 4.8 g/dL [employer] [place]. Albumin [Mass/Vol] 1.5 g/dL Normal 0.9 - 1.6 [employer], [place]. ALP [Catalytic activity/Vol] 86 U/L Normal 38 - 126 U/L [employer]. ALT [Catalytic activity/Vol] 46 U/L Abnormal 8 - 35 U/L [facility].; [facility]. ALT No additional P-5'-P [Catalytic activity/Vol] 46 U/L Abnormal 8 - 35 U/L [facility].; [facility]. AST [Catalytic activity/Vol] 35 U/L Normal 13 - 39 U/L [facility].; [facility] Bilirubin [Mass/Vol] 0.5 mg/dL Normal 0.0 - 1 .5 mg/dL [facility]; [facility] Calcium [Mass/Vol] 9.2 mg/dL Normal 8.6 - 10. 2 mg/dL [facility]; [facility] Chloride [Moles/Vol] 106 mmol/L Normal 98 - 10 7 mmol/L [facility]; [facility] Cholesterol [Mass/Vol] 96 mg/dL Normal 0 - 2 00 mg/dL [facility]; [facility] Cholesterol in HDL [Mass or moles/Vol] 39 mg/dL Abnormal 40 - 60 mg/dL [facility].; [facility] Cholesterol in LDL [Mass/Vol] 28 mg/dL Normal 0 - 129 mg/dL [facility].; [facility], [facility] Cholesterol.total/Ramonita sterol in HDL [Mass ratio] 2.5 {ratio} Normal 0.0 - 5.0 [facility]; [facility] CO2 [Moles/Vol] 26.9 mmol/L Normal 21.0 - 31.0 mmol/L [facility]; [facility], [facility] Comprehensive metabolic 2000 panel CMP with eGFR Normal [facility]; [facility], [facility] Creatinine [Mass/Vol] 0.6 mg/dL Normal 0.6 - 1.2 mg/dL [facility].; [facility], [facility]. CRP [Mass/Vol] 0.17 mg/dL Normal 0.00 - 1.00 mg/dL [facility]; [facility], [facility] GFR/1.73 sq M.predicted among blacks MDRD (S/P/Bld) [Vol rate/Area] mL/min/{1.73_m2} Normal 60 - 999 {ML/MINUTE} [facility], [facility].; [employer] [facility], [facility]. GFR/1.73 sq M.predicted MDRD (S/P/Bld) [Vol rate/Area] mL/min/{1.73_m2} Normal 60 - 999 {ML/MINUTE} [facility], [facility].; [employer], [facility]. Globulin (S) [Mass/Vol] 2.6 g/dL Normal 1.5 - 3.8 g/dL [facility], [facility].; [employer] [place] [employer] [facility], [facility]. Glucose [Mass/Vol] 116 mg/dL Abnormal 74 - 106 mg/dL [facility], [facility].; [employer] [facility], [facility]. Lipid 1996 panel LIPID PROFILE Normal [facility], [facility].; [employer], [facility] Potassium [Moles/Vol] 3.8 mmol/L Normal 3.5 - 5.1 mmol/L [facility], [facility].; [employer], [place] Protein [Mass/Vol] 6.6 g/dL Normal 6.4 - 8.3 g/dL [facility], [facility].; [employer], [place]. Sodium [Moles/Vol] 142 mmol/L Normal 136 - 145 mmol/L [facility], [facility].; [employer], [place]. Triglyceride [Mass/Vol] 147 mg/dL Normal 0 - 150 mg/dL [facility], [facility].; [employer], [facility]. Urea nitrogen [Mass/Vol] 15 mg/dL Normal 6 - 20 mg/dL [facility], [facility].; [employer], [facility]. Urea nitrogen/Creatinine [Mass ratio] 25 {ratio} Normal 0 - 30 {ratio} [facility], [facility].; [employer], [place]. Laboratory - Hematology and Cell countson 08-30-2020 ESR (Bld) [Velocity] 7 mm/h Normal 0 - 30 mm/h [facility], [facility].; [employer] No Panel Informationon 08-30 13 mmol/L Normal 10 - 20 mmol/L [facility], [facility].; [employer] 55 {years} Normal [facility].; [facility] 7.4 % Abnormal 4.3 - 5.6 % [facility].; [facility]. 166 mg/dL Normal [facility].; [facility] <10 Normal [facility].; [place] [employer] [facility]. Negative Normal [facility].; [facility]. Laboratory - Hematology and Cell countson 06-12-2020 HbA1c (Bld) [Mass fraction] 7.2 % Abnormal 4.6 - 7.1 % [facility].; [place] [employer] [facility]. Laboratory - Chemistry and C hemistry - challengeon 03-12-2020 Albumin/Creatinine DL <= 20 mg/L (U) [Mass ratio] mg/g Normal [facility].; [place] [employer] [facility], [facility] Creatinine (U) [Mass/Vol] 200 mg/dL Normal [facility].; [employer], [place]. Laboratory - Hematology and Cell countson 03-12-2020 HbA1c (Bld) [Mass fraction] 7.6 % Abnormal 4.6 - 7.1 % [facility].; [employer], [place]. Laboratory - Urinalysison Protein Ql (U) 30 mg/dL [facility]normal [facility].; [employer], [place]. Laboratory - Hematology and Cell countson 12-13-2019 HbA1c (Bld) [Mass fraction] 7.3 % Abnormal 4.6 - 7.1 % [facility].; [employer], [facility]. Laboratory - Chemistry and C hemistry - challengeon 10-28-2019 Cholesterol [Mass/Vol] 73 mg/dL Normal 0 - 2 00 mg/dL [facility].; [employer] [facility]. Cholesterol in HDL [Mass or moles/Vol] 34 mg/dL Abnormal 40 - 60 mg/dL [facility].; [employer] Cholesterol in LDL [Mass/Vol] 22 mg/dL Normal 0 - 129 mg/dL [facility].; [place] [employer] [facility]. Cholesterol.total/Ramonita sterol in HDL [Mass ratio] 2.1 {ratio} Normal 0.0 - 5.0 [facility], [facility].; [employer] [place]. Lipid 1995 panel LIPID PROFILE Normal [facility].; [employer] Triglyceride [Mass/Vol] 84 mg/dL Normal 0 - 150 mg/dL [employer], [facility].; [employer], [place]. Laboratory - Chemistry and C hemistry - challengeon 09-06-2019 Cholesterol [Mass/Vol] 145 mg/dL Normal [facility].; [employer] Cholesterol in HDL [Mass/Vol] 33 mg/dL Abnormal [employer] [facility].; [employer], [place]. Cholesterol in LDL [Mass/Vol] SEE NOTE Normal [employer] [facility].; [employer], [place]. Cholesterol non HDL [Mass/Vol] 112 mg/dL Normal [employer], [facility].; [employer], [place]. Cholesterol.total/Ramonita sterol in HDL [Mass ratio] 4.4 {ratio} Normal [employer] [facility].; [employer], [place]. Triglyceride [Mass/Vol] 443 mg/dL Abnormal [facility].; [employer], [place]. Laboratory - Hematology and Cell countson 09-06-2019 HbA1c (Bld) [Mass fraction] 8.8 % Abnormal 4.6 - 7.1 % [employer] [facility].; [employer] [place]. Laboratory - Chemistry and C hemistry - challengeon 06-10-2019 Cholesterol [Mass/Vol] 152 mg/dL Normal 0 - 2 00 mg/dL [employer] [facility].; [employer] Cholesterol in HDL [Mass or moles/Vol] 34 mg/dL Abnormal 40 - 60 mg/dL [employer] [facility].; [employer] [place]. Cholesterol in LDL [Mass/Vol] 39 mg/dL Normal 0 - 129 mg/dL [employer] [facility].; [employer], [place]. Cholesterol.total/Ramonita sterol in HDL [Mass ratio] 4.5 {ratio} Normal 0.0 - 5.0 [employer], [facility].; [employer] Lipid 1995 panel LIPID PROFILE Normal [facility] [employer] [facility].; [employer] Triglyceride [Mass/Vol] 394 mg/dL Abnormal 0 - 150 mg/dL [facility].; [employer]. Laboratory - Hematology and Cell countson 06-06-2019 HbA1c (Bld) [Mass fraction] 8.1 % Abnormal 4.6 - 7.1 % [facility].; [employer]. Laboratory - Chemistry and C hemistry - challengeon 03-11-2019 Cholesterol [Mass/Vol] 133 mg/dL Normal 0 - 2 00 mg/dL [facility].; [employer] Cholesterol in HDL [Mass or moles/Vol] 34 mg/dL Abnormal 40 - 60 mg/dL [facility].; [employer] Cholesterol in LDL [Mass/Vol] 48 mg/dL Normal 0 - 129 mg/dL [facility].; [employer]. Cholesterol.total/Ramonita sterol in HDL [Mass ratio] 3.9 {ratio} Normal 0.0 - 5.0 [facility].; [employer] Lipid 1996 panel LIPID PROFILE Normal [facility].; [employer]. Triglyceride [Mass/Vol] 257 mg/dL Abnormal 0 - 150 mg/dL [facility].; [employer]. Laboratory - Hematology and Cell countson 03-07-2019 HbA1c (Bld) [Mass fraction] 7.8 % Abnormal 4.6 - 7.1 % [facility].; [employer]. Laboratory - Chemistry and C hemistry - challengeon 01-18-2019 Bilirubin Ql (U) Negative Normal [facility] [employer]. Ketones Ql (U) Negative Normal [facility].; [employer], [place]. pH (U) 7.0 [pH] Normal [employer] [facility].; [employer], [place]. Specific gravity (U) [Rel density] 1.020 Normal [employer] [facility].; [employer]. Urobilinogen Qn (U) 0.2 mg/dL Normal [facility].; [employer]. Laboratory - Hematology and Cell countson 01-18-2019 Hemoglobin Ql (U) Negative Normal [employer]. Laboratory - Specimen inform ationon 01-18-2019 Appearance (U) clear Normal [facility] [employer].; [employer]. Color (U) yellow Normal [employer]. Laboratory - Urinalysison Glucose Test strip (U) [Mass/Vol] Negative Normal [employer].; [employer]. Leukocyte esterase Test strip Ql (U) Negative Normal [employer].; [employer]. Nitrite Ql (U) Negative Normal [facility].; [employer]. Protein Ql (U) trace Normal [facility] [employer].; [employer]. Laboratory - Chemistry and C hemistry - challengeon 12-24-2018 Albumin [Mass/Vol] 4.2 g/dL Normal 3.4 - 4.8 g/dL [employer], [place]. Albumin [Mass/Vol] 1.7 g/dL Abnormal 0.9 - 1.6 [employer]. ALP [Catalytic activity/Vol] 91 U/L Normal 38 - 126 U/L [employer].; [employer], [place]. ALT [Catalytic activity/Vol] 28 U/L Normal 8 - 35 U/L [employer], [place]. ALT No additional P-5'-P [Catalytic activity/Vol] 28 U/L Normal 8 - 35 U/L [employer]. AST [Catalytic activity/Vol] 22 U/L Normal 13 - 39 U/L [employer].; [employer], [place]. Bilirubin [Mass/Vol] 0.6 mg/dL Normal 0.0 - 1 .5 mg/dL [employer].; [employer], [place]. Calcium [Mass/Vol] 9.5 mg/dL Normal 8.6 - 10. 2 mg/dL [employer].; [employer]. Chloride [Moles/Vol] 103 mmol/L Normal 98 - 10 7 mmol/L [facility].; [facility], [facility]. Cholesterol [Mass/Vol] 134 mg/dL Normal 0 - 2 00 mg/dL [facility].; [facility], [facility] Cholesterol in HDL [Mass or moles/Vol] 38 mg/dL Abnormal 40 - 60 mg/dL [facility].; [facility], [facility] Cholesterol in LDL [Mass/Vol] 39 mg/dL Normal 0 - 129 mg/dL [facility].; [facility], [facility] Cholesterol.total/Ramonita sterol in HDL [Mass ratio] 3.5 {ratio} Normal 0.0 - 5.0 [facility]; [facility], [facility] CO2 [Moles/Vol] 26.9 mmol/L Normal 21.0 - 31.0 mmol/L [facility].; [facility], [facility] Comprehensive metabolic 2000 panel CMP with eGFR Normal [facility]; [facility], [facility] Creatinine [Mass/Vol] 0.7 mg/dL Normal 0.6 - 1.2 mg/dL [facility], [facility].; [facility], [facility]. Gamma glutamyl transferase [Catalytic activity/Vol] 28 U/L Normal 8 - 64 U/L [facility].; [facility], [facility]. GFR/1.73 sq M.predicted among blacks MDRD (S/P/Bld) [Vol rate/Area] mL/min/{1.73_m2} Normal 60 - 999 {ML/MINUTE} [facility], [facility].; [facility], [facility]. GFR/1.73 sq M.predicted MDRD (S/P/Bld) [Vol rate/Area] mL/min/{1.73_m2} Normal 60 - 999 {ML/MINUTE} [facility], [facility].; [facility], [facility]. Globulin (S) [Mass/Vol] 2.5 g/dL Normal 1.5 - 3.8 g/dL [facility], [facility].; [facility], [facility]. Glucose [Mass/Vol] 148 mg/dL Abnormal 74 - 106 mg/dL [facility]; [employer] [place] [employer] [facility]. Lipid 1996 panel LIPID PROFILE Normal [facility].; [facility] Potassium [Moles/Vol] 4.0 mmol/L Normal 3.5 - 5.1 mmol/L [facility].; [place] [employer] [facility] Protein [Mass/Vol] 6.7 g/dL Normal 6.4 - 8.3 g/dL [facility].; [place] [employer] [facility] Sodium [Moles/Vol] 139 mmol/L Normal 136 - 145 mmol/L [facility].; [place] [employer] [facility] Triglyceride [Mass/Vol] 287 mg/dL Abnormal 0 - 150 mg/dL [facility].; [place] [employer] [facility]. Urea nitrogen [Mass/Vol] 14 mg/dL Normal 6 - 20 mg/dL [facility].; [employer]. Urea nitrogen/Creatinine [Mass ratio] 20 {ratio} Normal 0 - 30 {ratio} [facility].; [employer] No Panel Informationon 12-24 13 mmol/L Normal 10 - 20 mmol/L [facility].; [employer]. 53 {years} Normal [facility].; [place] [employer] [facility] Laboratory - Chemistry and C hemistry - challengeon 11-16-2018 Albumin/Creatinine DL <= 20 mg/L (U) [Mass ratio] mg/g Normal [facility].; [employer]. Creatinine (U) [Mass/Vol] 200 mg/dL Normal [place] [employer] [facility].; [employer]. Laboratory - Urinalysison Protein Ql (U) 30 mg/dL Abnormal [facility].; [employer], [employer]. Laboratory - Chemistry and C hemistry - challengeon 11-05-2018 Albumin [Mass/Vol] 4.3 g/dL Normal 3.4 - 4.8 g/dL [facility].; [employer], [place]. Albumin [Mass/Vol] 1.6 g/dL Normal 0.9 - 1.6 [facility].; [facility]. ALP [Catalytic activity/Vol] 71 U/L Normal 38 - 126 U/L [facility].; [facility]. ALT [Catalytic activity/Vol] 20 U/L Normal 8 - 35 U/L [facility].; [facility] ALT No additional P-5'-P [Catalytic activity/Vol] 20 U/L Normal 8 - 35 U/L [facility].; [facility]. AST [Catalytic activity/Vol] 16 U/L Normal 13 - 39 U/L [facility].; [facility]. Bilirubin [Mass/Vol] 0.5 mg/dL Normal 0.0 - 1 .5 mg/dL [facility]; [facility], [facility]. Calcium [Mass/Vol] 9.5 mg/dL Normal 8.6 - 10. 2 mg/dL [facility].; [facility] Chloride [Moles/Vol] 101 mmol/L Normal 98 - 10 7 mmol/L [facility].; [facility]. Cholesterol [Mass/Vol] 198 mg/dL Normal 0 - 2 00 mg/dL [facility].; [facility]. Cholesterol in HDL [Mass or moles/Vol] 41 mg/dL Normal 40 - 60 mg/dL [facility]; [facility]. Cholesterol in LDL [Mass/Vol] 104 mg/dL Normal 0 - 129 mg/dL [facility].; [facility]. Cholesterol.total/Ramonita sterol in HDL [Mass ratio] 4.8 {ratio} Normal 0.0 - 5.0 [facility].; [facility] CO2 [Moles/Vol] 33.5 mmol/L Abnormal 21.0 - 31.0 mmol/L [facility].; [facility], [facility]. Comprehensive metabolic 2000 panel CMP with eGFR Normal [facility]; [facility] Creatinine [Mass/Vol] 0.9 mg/dL Normal 0.6 - 1.2 mg/dL [facility].; [facility], Inc[employer] GFR/1.73 sq M.predicted among blacks MDRD (S/P/Bld) [Vol rate/Area] mL/min/{1.73_m2} Normal 60 - 999 {ML/MINUTE} [employer] [facility], [employer].; [employer] GFR/1.73 sq M.predicted MDRD (S/P/Bld) [Vol rate/Area] mL/min/{1.73_m2} Normal 60 - 999 {ML/MINUTE} [employer] [facility], [employer].; [employer], [employer]. Globulin (S) [Mass/Vol] 2.7 g/dL Normal 1.5 - 3.8 g/dL [employer] [employer] [facility].; [employer], [place]. Glucose [Mass/Vol] 133 mg/dL Abnormal 74 - 106 mg/dL [place] [employer] [facility].; [employer], [place]. Lipid 1996 panel LIPID PROFILE Normal [facility], [facility].; [employer], [place]. Potassium [Moles/Vol] 4.1 mmol/L Normal 3.5 - 5.1 mmol/L [place] [employer] [facility].; [employer], [place]. Protein [Mass/Vol] 7.0 g/dL Normal 6.4 - 8.3 g/dL [employer], [place]. Sodium [Moles/Vol] 142 mmol/L Normal 136 - 145 mmol/L [employer] [facility], [facility].; [employer], [place]. Triglyceride [Mass/Vol] 267 mg/dL Abnormal 0 - 150 mg/dL [employer].; [employer], [place]. Urea nitrogen [Mass/Vol] 11 mg/dL Normal 6 - 20 mg/dL [employer], [facility].; [employer], [place]. Urea nitrogen/Creatinine [Mass ratio] 12 {ratio} Normal 0 - 30 {ratio} [employer], [place]. Laboratory - Hematology and Cell countson 11-05-2018 HbA1c (Bld) [Mass fraction] 7.0 % Abnormal 4.4 - 6.4 % [employer].; [employer], [place]. No Panel Informationon 11-05 12 mmol/L Normal 10 - 20 mmol/L [facility].; [facility] 53 {years} Normal [facility]; [facility] Laboratory - Hematology and Cell countson 08-18-2018 HbA1c (Bld) [Mass fraction] 7.2 % Abnormal 4.6 - 7.1 % [facility]; [facility] Laboratory - Hematology and Cell countson 05-09-2018 HbA1c (Bld) [Mass fraction] 7.3 % Abnormal 4.6 - 7.1 % [facility]; [place] [facility] Laboratory - Chemistry and C hemistry - challengeon 02-09-2018 Free T3 [Mass/Vol] 2.9 pg/mL Normal 2.3 - 4.2 pg/mL [facility]; [facility] Free T4 [Mass/Vol] 1.1 ng/dL Normal 0.8 - 1.8 ng/dL [facility]; [place] [employer] [facility] TSH Qn 0.76 m[IU]/L Normal 0.40 - 4.50 {mIU/L} [facility]; [employer] [facility] Laboratory - Hematology and Cell countson 02-09-2018 HbA1c (Bld) [Mass fraction] 6.6 % Normal 4.6 - 7.1 % [facility]; [place] [facility] Laboratory - Serology - non- microon 02-09-2018 TPO Ab Qn [IU]/mL Normal [facility]; [facility] Laboratory - Chemistry and C hemistry - challengeon 11-11-2017 Albumin/Creatinine DL <= 20 mg/L (U) [Mass ratio] mg/g Normal [facility]; [employer] [facility] Creatinine (U) [Mass/Vol] 300 mg/dL Normal [facility]; [place] [employer] [facility]. Laboratory - Hematology and Cell countson 11-11-2017 HbA1c (Bld) [Mass fraction] 6.1 % Normal 4.6 - 7.1 % [facility]; [employer] [facility] Laboratory - Urinalysison Protein Ql (U) 30mg/L Normal [facility], [facility].; [employer]. Office Visiton 09-09-2017 Documentation of current medications (procedure) Done Invalid Interpretation Code [facility] Work Phone: Tobacco smoking status NHIS Never Invalid Interpretation Code [facility] Work Phone: Tobacco use CPHS Never smoker Invalid Interpretation Code [facility] Work Phone: Laboratory - Chemistry and C hemistry - challengeon 08-13-2017 Albumin [Mass/Vol] 4.5 g/dL Normal 3.4 - 4.8 g/dL [facility].; [place] [employer] [facility], [facility]. Albumin [Mass/Vol] 1.6 g/dL Normal 0.9 - 1.6 [facility], [facility].; [place] [employer], [place]. ALP [Catalytic activity/Vol] 78 U/L Normal 38 - 126 U/L [facility].; [place] [employer] ALT [Catalytic activity/Vol] 30 U/L Normal 8 - 35 U/L [facility].; [employer], [place]. ALT No additional P-5'-P [Catalytic activity/Vol] 30 U/L Normal 8 - 35 U/L [facility].; [employer] [employer] AST [Catalytic activity/Vol] 27 U/L Normal 13 - 39 U/L [facility], [facility].; [employer], [facility]. Bilirubin [Mass/Vol] 0.4 mg/dL Normal 0.0 - 1 .5 mg/dL [facility], [facility].; [place] [employer] Calcium [Mass/Vol] 9.3 mg/dL Normal 8.6 - 10. 2 mg/dL [facility], [facility].; [employer] Chloride [Moles/Vol] 103 mmol/L Normal 98 - 10 7 mmol/L [facility], [facility].; [employer] Cholesterol [Mass/Vol] 176 mg/dL Normal 0 - 2 00 mg/dL [facility].; [place] [employer] Cholesterol in HDL [Mass or moles/Vol] 38 mg/dL Abnormal 40 - 60 mg/dL [facility].; [facility], [facility] Cholesterol in LDL [Mass/Vol] 102 mg/dL Normal 0 - 129 mg/dL [facility].; [facility], [facility] Cholesterol.total/Ramonita sterol in HDL [Mass ratio] 4.6 {ratio} Normal 0.0 - 5.0 [facility]; [facility], [facility] CO2 [Moles/Vol] 30.5 mmol/L Normal 21.0 - 31.0 mmol/L [facility].; [facility], [facility] Comprehensive metabolic 2000 panel CMP with eGFR Normal [facility]; [facility], [facility] Creatinine [Mass/Vol] 0.7 mg/dL Normal 0.6 - 1.2 mg/dL [facility], [facility].; [facility], [facility]. GFR/1.73 sq M.predicted among blacks MDRD (S/P/Bld) [Vol rate/Area] mL/min/{1.73_m2} Normal 60 - 999 {ML/MINUTE} [facility].; [facility], [facility]. GFR/1.73 sq M.predicted MDRD (S/P/Bld) [Vol rate/Area] mL/min/{1.73_m2} Normal 60 - 999 {ML/MINUTE} [facility], [facility].; [facility], [facility]. Globulin (S) [Mass/Vol] 2.8 g/dL Normal 1.5 - 3.8 g/dL [facility], [facility].; [facility], [facility]. Glucose [Mass/Vol] 104 mg/dL Normal 74 - 106 mg/dL [facility], [facility].; [facility], [facility]. Lipid 1996 panel LIPID PROFILE Normal [facility].; [facility], [facility] Potassium [Moles/Vol] 4.3 mmol/L Normal 3.5 - 5.1 mmol/L [facility], [facility].; [facility], [facility] Protein [Mass/Vol] 7.3 g/dL Normal 6.4 - 8.3 g/dL [facility], [facility].; [facility], [facility] Sodium [Moles/Vol] 139 mmol/L Normal 136 - 145 mmol/L [place] [employer].; [employer]. Triglyceride [Mass/Vol] 180 mg/dL Abnormal 0 - 150 mg/dL [place] [employer].; [employer], [place]. Urea nitrogen [Mass/Vol] 16 mg/dL Normal 6 - 20 mg/dL [place] [employer].; [employer], [place]. Urea nitrogen/Creatinine [Mass ratio] 23 {ratio} Normal 0 - 30 {ratio} [employer].; [employer], [place]. No Panel Informationon 08-13 10 mmol/L Normal 10 - 20 mmol/L [place] [employer].; [employer]. 52 {years} Normal [place] [employer].; [employer]. Laboratory - Hematology and Cell countson 08-12-2017 HbA1c (Bld) [Mass fraction] 6.7 % Normal 4.6 - 7.1 % [employer] [employer].; [employer]. Office Visiton 06-10-2017 Documentation of current medications (procedure) Done Invalid Interpretation Code [facility] Work Phone: Fall risk assessment No Invalid Interpretation Code [facility] Work Phone: Tobacco smoking status NHIS Never Invalid Interpretation Code [facility] Work Phone: Tobacco use CPHS Never smoker Invalid Interpretation Code [facility] Work Phone: Laboratory - Hematology and Cell countson 05-17-2017 HbA1c (Bld) [Mass fraction] 7.9 % Abnormal 4.6 - 7.1 % [place] [employer].; [employer], [place]. Laboratory - Chemistry and C hemistry - challengeon 04-07-2017 Bilirubin Ql (U) Small Abnormal [facility].; [employer] Creatinine [Mass/Vol] 0.75 mg/dL Normal 0.50 - 1.05 mg/dL [place] [employer].; [employer], [place]. GFR/1.73 sq M.predicted among blacks MDRD (S/P/Bld) [Vol rate/Area] 106 {ML/MIN/1.73M2} Normal [facility].; [employer]. GFR/1.73 sq M.predicted MDRD (S/P/Bld) [Vol rate/Area] 92 {ML/MIN/1.73M2} Normal [facility].; [employer]. Ketones Ql (U) Negative Normal [facility].; [employer]. pH (U) 5.5 [pH] Normal [facility].; [employer]. Specific gravity (U) [Rel density] >1.030 Normal [facility].; [employer]. Urea nitrogen [Mass/Vol] 18 mg/dL Normal 7 - 25 mg/dL [facility].; [employer]. Urobilinogen Qn (U) 0.2 mg/dL Normal [facility].; [employer]. Laboratory - Hematology and Cell countson 04-07-2017 Hemoglobin Ql (U) trace, hemolyzed Abnormal [facility].; [employer]. Laboratory - Specimen inform ationon 04-07-2017 Appearance (U) clear Normal [facility].; [employer]. Color (U) yellow Normal [facility].; [employer]. Laboratory - Urinalysison Glucose Test strip (U) [Mass/Vol] 100 mg/dL Normal [facility].; [employer]. Leukocyte esterase Test strip Ql (U) Negative Normal [place] [employer].; [employer]. Nitrite Ql (U) Negative Normal [facility] [employer].; [employer]. Protein Ql (U) 30 mg/dL Abnormal [facility].; [employer]. Laboratory - Hematology and Cell countson 02-15-2017 HbA1c (Bld) [Mass fraction] 7.1 % Normal 4.6 - 7.1 % [facility].; [employer]. Laboratory - Chemistry and C hemistry - challengeon 11-19-2016 Albumin/Creatinine DL <= 20 mg/L (U) [Mass ratio] mg/g Normal [facility]; [facility] Creatinine (U) [Mass/Vol] 100 mg/dL Normal [facility].; [place] [employer] Laboratory - Hematology and Cell countson 11-19-2016 HbA1c (Bld) [Mass fraction] 7.0 % Normal 4.6 - 7.1 % [facility]; [place] [employer] Laboratory - Urinalysison Protein Ql (U) 30 mg/dL Abnormal [facility].; [place] [employer] [facility] Laboratory - Hematology and Cell countson 08-13-2016 HbA1c (Bld) [Mass fraction] 7.5 % Abnormal 4.6 - 7.1 % [facility]; [place] [employer] Lab Report: Bedside Glucoseo n 08-11-2016 Glucose mass conc 117 mg/dL High 70-110 [facility] Work Phone: Laboratory - Hematology and Cell countson 05-13-2016 HbA1c (Bld) [Mass fraction] 9.1 % Abnormal 4.6 - 7.1 % [facility]; [place] [employer] Laboratory - Chemistry and C hemistry - challengeon 03-16-2016 Albumin [Mass/Vol] 4.3 g/dL Normal 3.4 - 4.8 g/dL [facility].; [place] [employer] Albumin [Mass/Vol] 1.5 g/dL Normal 0.9 - 1.6 [facility].; [place] [employer]. ALP [Catalytic activity/Vol] 96 U/L Normal 38 - 126 U/L [facility].; [place] [employer]. ALT [Catalytic activity/Vol] 25 U/L Normal 8 - 35 U/L [facility].; [place] [employer] ALT No additional P-5'-P [Catalytic activity/Vol] 25 U/L Normal 8 - 35 U/L [facility].; [facility]. AST [Catalytic activity/Vol] 19 U/L Normal 13 - 39 U/L [facility].; [facility], [facility] Bilirubin [Mass/Vol] 0.4 mg/dL Normal 0.0 - 1 .5 mg/dL [facility].; [facility], [facility]. Calcium [Mass/Vol] 9.3 mg/dL Normal 8.6 - 10. 2 mg/dL [facility].; [facility], [facility]. Chloride [Moles/Vol] 102 mmol/L Normal 98 - 10 7 mmol/L [facility].; [facility], [facility]. Cholesterol [Mass/Vol] 155 mg/dL Normal 0 - 2 00 mg/dL [facility].; [facility], [facility]. Cholesterol in HDL [Mass or moles/Vol] 29 mg/dL Abnormal 40 - 60 mg/dL [facility].; [facility], [facility] Cholesterol in LDL [Mass/Vol] 80 mg/dL Normal 0 - 129 mg/dL [facility].; [facility], [facility] Cholesterol.total/Ramonita sterol in HDL [Mass ratio] 5.3 {ratio} Abnormal 0.0 - 5.0 [facility]; [facility], [facility]. CO2 [Moles/Vol] 32.0 mmol/L Abnormal 13.0 - 29.0 mmol/L [facility].; [facility], [facility] Comprehensive metabolic 2000 panel CMP with eGFR Normal [facility]; [facility], [facility] Creatinine [Mass/Vol] 0.7 mg/dL Normal 0.6 - 1.2 mg/dL [facility].; [facility], [facility]. GFR/1.73 sq M.predicted among blacks MDRD (S/P/Bld) [Vol rate/Area] mL/min/{1.73_m2} Normal 60 - 999 {ML/MINUTE} [facility], [facility].; [facility], [facility]. GFR/1.73 sq M.predicted MDRD (S/P/Bld) [Vol rate/Area] mL/min/{1.73_m2} Normal 60 - 999 {ML/MINUTE} [facility].; [place] [employer] [facility]. Globulin (S) [Mass/Vol] 2.8 g/dL Normal 1.5 - 3.8 g/dL [facility].; [place] [employer] [facility], [place]. Glucose [Mass/Vol] 160 mg/dL Abnormal 74 - 106 mg/dL [facility].; [employer], [place]. Lipid 1996 panel LIPID PROFILE Normal [facility].; [place] [employer] [facility], [facility] Potassium [Moles/Vol] 4.0 mmol/L Normal 3.5 - 5.1 mmol/L [facility].; [place] [employer] [facility], [place] Protein [Mass/Vol] 7.1 g/dL Normal 6.4 - 8.3 g/dL [facility].; [place] [employer], [place]. Sodium [Moles/Vol] 139 mmol/L Normal 136 - 145 mmol/L [facility].; [place] [employer], [place] Triglyceride [Mass/Vol] 232 mg/dL Abnormal 0 - 150 mg/dL [facility].; [employer], [place]. Urea nitrogen [Mass/Vol] 11 mg/dL Normal 6 - 20 mg/dL [facility].; [employer], [place]. Urea nitrogen/Creatinine [Mass ratio] 16 {ratio} Normal 0 - 30 {ratio} [place] [employer] [facility].; [employer]. No Panel Informationon 03-16 9 mmol/L Abnormal 10 - 20 mmol/L [facility].; [employer] 51 {years} Normal [place] [employer] [facility].; [employer] Laboratory - Hematology and Cell countson 02-14-2016 HbA1c (Bld) [Mass fraction] 8.2 % Abnormal 4.6 - 7.1 % [facility].; [employer], [place]. Laboratory - Chemistry and C hemistry - challengeon 10-09-2015 Albumin/Creatinine DL <= 20 mg/L (U) [Mass ratio] mg/g Normal [place] [employer] [facility].; [employer] Creatinine (U) [Mass/Vol] 200 mg/dL Normal [place] [employer] [facility] [employer]; [employer]. Laboratory - Hematology and Cell countson 10-09-2015 HbA1c (Bld) [Mass fraction] 7.4 % Abnormal 4.6 - 7.1 % [facility]; [employer] Laboratory - Urinalysison Protein Ql (U) 10mg/L Normal [facility].; [employer]. Laboratory - Chemistry and C hemistry - challengeon 08-08-2015 Fat.microscopic observation [place] IV stain Nom (Stl) FECAL FAT QUALITATIVE Normal [facility]; [employer]. Hemoglobin.gastrointest inal Ql (Stl) See Note Normal [facility] [employer]; [employer] Laboratory - Microbiology an d Antimicrobial susceptibilityon 08-08-2015 C. difficile toxin A+B IA Ql (Stl) C DIFF COMPLETE Normal [facility] HospitalPersonal; [employer] Ova and parasites identified Trichrome stain Nom (Stl) Normal [facility] [employer] [facility]; [employer] No Panel Informationon 08-08 Observation duration YES Normal [facility]; [employer]. PASS Normal [facility].; [employer]. Laboratory - Chemistry and C hemistry - challengeon 07-08-2015 Bilirubin Ql (U) Negative Normal [facility] [employer] Ketones Ql (U) Negative Normal [facility].; [employer]. pH (U) 5.5 [pH] Normal [place] [employer].; [employer]. Specific gravity (U) [Rel density] 1.025 Normal [place] [employer]; [employer]. Urobilinogen Qn (U) 0.2 mg/dL Normal [facility].; [employer]. Laboratory - Hematology and Cell countson 07-08-2015 Hemoglobin Ql (U) Negative Normal [place] [employer].; [employer]. Laboratory - Specimen inform ationon 07-08-2015 Appearance (U) clear Normal [facility]; [employer]. Color (U) yellow Normal [facility].; [place] [employer] [facility]. Laboratory - Urinalysison Glucose Test strip (U) [Mass/Vol] Negative Normal [facility].; [place] [employer] [facility], [facility]. Leukocyte esterase Test strip Ql (U) Negative Normal [facility].; [place] [employer] [facility]. Nitrite Ql (U) Negative Normal [facility].; [place] [employer] [facility]. Protein Ql (U) Negative Normal [facility].; [place] [employer] [facility]. Laboratory - Chemistry and C hemistry - challengeon 07-03-2015 Albumin/Creatinine DL <= 20 mg/L (U) [Mass ratio] 30-300 mg/g Abnormal [facility].; [place] [employer]. Creatinine (U) [Mass/Vol] 50 mg/dL Normal [facility].; [place] [employer] [facility]. Laboratory - Hematology and Cell countson 07-03-2015 HbA1c (Bld) [Mass fraction] 8.2 % Abnormal 4.6 - 7.1 % [facility]; [place] [employer] [facility]. Laboratory - Urinalysison Protein Ql (U) 10mg/L Normal [facility].; [place] [employer]. Laboratory - Chemistry and C hemistry - challengeon 02-27-2015 Albumin/Creatinine DL <= 20 mg/L (U) [Mass ratio] 30-300 mg/g Abnormal [facility].; [facility]. Creatinine (U) [Mass/Vol] 300 mg/dL Normal [facility].; [place] [employer] [facility]. Laboratory - Urinalysison Protein Ql (U) 80mg/L Normal [facility].; [place] [employer] [facility]. Laboratory - Chemistry and C hemistry - challengeon 02-21-2015 Albumin [Mass/Vol] 4.1 g/dL Normal 3.4 - 4.8 g/dL [facility].; [place] [employer] Albumin [Mass/Vol] 1.6 g/dL Normal 0.9 - 1.6 [facility].; [facility]. ALP [Catalytic activity/Vol] 92 U/L Normal 38 - 126 U/L [facility].; [facility]. ALT [Catalytic activity/Vol] 36 U/L Abnormal 8 - 35 U/L [facility].; [facility], [facility]. ALT No additional P-5'-P [Catalytic activity/Vol] 36 U/L Abnormal 8 - 35 U/L [facility].; [facility]. AST [Catalytic activity/Vol] 22 U/L Normal 13 - 39 U/L [facility].; [facility] Bilirubin [Mass/Vol] 0.5 mg/dL Normal 0.0 - 1 .5 mg/dL [facility]; [facility], [facility] Calcium [Mass/Vol] 9.2 mg/dL Normal 8.6 - 10. 2 mg/dL [facility]; [facility]. Chloride [Moles/Vol] 104 mmol/L Normal 98 - 10 7 mmol/L [facility]; [facility], [facility]. Cholesterol [Mass/Vol] 173 mg/dL Normal 0 - 2 00 mg/dL [facility]; [facility], [facility]. Cholesterol in HDL [Mass or moles/Vol] 40 mg/dL Normal 40 - 60 mg/dL [facility].; [facility], [facility]. Cholesterol in LDL [Mass/Vol] 92 mg/dL Normal 0 - 129 mg/dL [facility].; [facility], [facility]. Cholesterol.total/Ramonita sterol in HDL [Mass ratio] 4.3 {ratio} Normal 0.0 - 5.0 [facility]; [facility] CO2 [Moles/Vol] 29.0 mmol/L Normal 13.0 - 29.0 mmol/L [facility].; [facility], [facility] Comprehensive metabolic 2000 panel CMP with eGFR Normal [facility]; [facility], [facility] Creatinine [Mass/Vol] 0.7 mg/dL Normal 0.6 - 1.2 mg/dL [facility].; [place] [employer] [facility], [facility]. GFR/1.73 sq M.predicted among blacks MDRD (S/P/Bld) [Vol rate/Area] mL/min/{1.73_m2} Normal 60 - 999 {ML/MINUTE} [facility], [facility].; [place] [employer] [facility], [facility]. GFR/1.73 sq M.predicted MDRD (S/P/Bld) [Vol rate/Area] mL/min/{1.73_m2} Normal 60 - 999 {ML/MINUTE} [facility], [facility].; [place] [employer] [facility], [employer]. Globulin (S) [Mass/Vol] 2.6 g/dL Normal 1.5 - 3.8 g/dL [facility].; [place] [employer] Glucose [Mass/Vol] 135 mg/dL Abnormal 74 - 106 mg/dL [facility], [facility].; [employer], [place]. Lipid 1996 panel LIPID PROFILE Normal [facility].; [place] [employer] Potassium [Moles/Vol] 4.2 mmol/L Normal 3.5 - 5.1 mmol/L [facility].; [place], [place]. Protein [Mass/Vol] 6.7 g/dL Normal 6.4 - 8.3 g/dL [place] [employer] [facility], [facility].; [employer] Sodium [Moles/Vol] 140 mmol/L Normal 136 - 145 mmol/L [facility], [facility].; [employer], [place]. Triglyceride [Mass/Vol] 205 mg/dL Abnormal 0 - 150 mg/dL [facility], [facility].; [employer] Urea nitrogen [Mass/Vol] 15 mg/dL Normal 6 - 20 mg/dL [facility], [facility].; [employer], [place]. Urea nitrogen/Creatinine [Mass ratio] 21 {ratio} Normal 0 - 30 {ratio} [place] [employer] [facility].; [employer], [place]. Laboratory - Hematology and Cell countson 02-21-2015 HbA1c (Bld) [Mass fraction] 7.0 % Abnormal 4.4 - 6.4 % [facility], [facility].; [employer], [place]. No Panel Informationon 02-21 50 {years} Normal [employer].; [employer]. Laboratory - Chemistry and C hemistry - challengeon 01-31-2015 Bilirubin Ql (U) small Abnormal [facility] Cambridge[facility].; [employer]. Ketones Ql (U) Negative Normal [facility].; [employer]. pH (U) 5.5 [pH] Normal [employer].; [employer]. Specific gravity (U) [Rel density] 1.030 Abnormal [employer].; [employer]. Urobilinogen Qn (U) 0.2 mg/dL Normal [facility] [employer]; [employer]. Laboratory - Hematology and Cell countson 01-31-2015 Hemoglobin (Bld) [Mass/Vol] 13.5 g/dL Normal 11.5 - 14.2 g/dL [place] [employer].; [employer]. Hemoglobin Ql (U) Negative Normal [employer].; [employer]. Laboratory - Specimen inform ationon 01-31-2015 Appearance (U) clear Normal [facility] [employer]; [employer]. Color (U) yellow Normal [employer].; [employer]. Laboratory - Urinalysison Glucose Test strip (U) [Mass/Vol] Negative Normal [employer].; [employer]. Leukocyte esterase Test strip Ql (U) Negative Normal [employer].; [employer]. Nitrite Ql (U) Negative Normal [facility].; [employer]. Protein Ql (U) 30 mg/dL Abnormal [facility] [employer].; [employer]. No Panel Informationon 01-31 Negative Normal [employer].; [employer]. Laboratory - Chemistry and C hemistry - challengeon 11-15-2014 Albumin/Creatinine DL <= 20 mg/L (U) [Mass ratio] 30-300 mg/g Abnormal [employer].; [employer]. Bilirubin Ql (U) Negative Normal [facility].; [employer]. Creatinine (U) [Mass/Vol] 200 mg/dL Normal [facility].; [employer]. Ketones Ql (U) Negative Normal [facility].; [employer] [employer]. pH (U) 6.5 [pH] Normal [facility].; [place] [employer]. Specific gravity (U) [Rel density] 1.020 Normal [facility].; [employer]. Urobilinogen Qn (U) 0.2 mg/dL Normal [facility].; [employer]. Laboratory - Hematology and Cell countson 11-15-2014 Hemoglobin Ql (U) trace, hemolyzed Abnormal [facility] [facility].; [employer]. Laboratory - Specimen inform ationon 11-15-2014 Appearance (U) clear [facility] [place] [employer]. Color (U) yellow Normal [place] [employer] [facility].; [employer]. Laboratory - Urinalysison Glucose Test strip (U) [Mass/Vol] Negative Normal [facility].; [employer]. Leukocyte esterase Test strip Ql (U) Negative Normal [facility].; [employer]. Nitrite Ql (U) Negative Normal [facility] [employer]. Protein Ql (U) 80mg/L Normal [facility].; [employer]. Protein Ql (U) Negative Normal [facility] [employer]. Laboratory - Hematology and Cell countson 08-27-2014 HbA1c (Bld) [Mass fraction] 7.4 % Abnormal 4.6 - 7.1 % [facility].; [employer]. Laboratory - Hematology and Cell countson 05-24-2014 HbA1c (Bld) [Mass fraction] 7.5 % Abnormal 4.6 - 7.1 % [facility] [employer]. Laboratory - Hematology and Cell countson 02-28-2014 HbA1c (Bld) [Mass fraction] 6.4 % Normal 4.6 - 7.1 % [facility].; [place] [employer] [facility]. Laboratory - Chemistry and C hemistry - challengeon 02-17-2014 Albumin [Mass/Vol] 4.5 g/dL Normal 3.4 - 4.8 g/dL [facility].; [facility], [facility]. Albumin [Mass/Vol] 1.6 g/dL Normal 0.9 - 1.6 [facility].; [place] [employer] [facility], [facility]. ALP [Catalytic activity/Vol] 81 U/L Normal 38 - 126 U/L [facility], [facility].; [facility], [facility]. ALT [Catalytic activity/Vol] 28 U/L Normal 8 - 35 U/L [facility], [facility].; [place] [employer] [facility], [facility]. ALT No additional P-5'-P [Catalytic activity/Vol] 28 U/L Normal 8 - 35 U/L [facility].; [place] [employer] [facility], [place]. AST [Catalytic activity/Vol] 23 U/L Normal 13 - 39 U/L [facility].; [employer], [place]. Bilirubin [Mass/Vol] 0.6 mg/dL Normal 0.0 - 1 .5 mg/dL [facility], [facility].; [place] [employer] [facility], [facility]. Calcium [Mass/Vol] 9.4 mg/dL Normal 8.6 - 10. 2 mg/dL [facility], [facility].; [place] [employer] [facility], [facility]. Chloride [Moles/Vol] 104 mmol/L Normal 98 - 10 7 mmol/L [facility].; [employer], [facility]. Cholesterol [Mass/Vol] 198 mg/dL Normal 0 - 2 00 mg/dL [facility], [facility].; [facility], [facility]. Cholesterol in HDL [Mass or moles/Vol] 44 mg/dL Normal 40 - 60 mg/dL [facility], [facility].; [place] [employer] [facility], [facility]. Cholesterol in LDL [Mass/Vol] 127 mg/dL Normal 0 - 129 mg/dL [facility], [facility].; [facility], [facility]. Cholesterol.total/Ramonita sterol in HDL [Mass ratio] 4.5 {ratio} Normal 0.0 - 5.0 [facility].; [facility], [facility]. CO2 [Moles/Vol] 29.0 mmol/L Normal 13.0 - 29.0 mmol/L [facility].; [facility], [facility]. Comprehensive metabolic 2000 panel CMP with eGFR Normal [facility]; [facility], [facility] Creatinine [Mass/Vol] 0.9 mg/dL Normal 0.6 - 1.2 mg/dL [facility].; [facility], [facility]. GFR/1.73 sq M.predicted among blacks MDRD (S/P/Bld) [Vol rate/Area] mL/min/{1.73_m2} Normal 60 - 999 {ML/MINUTE} [facility], [facility].; [facility], [facility]. GFR/1.73 sq M.predicted MDRD (S/P/Bld) [Vol rate/Area] mL/min/{1.73_m2} Normal 60 - 999 {ML/MINUTE} [facility], [facility].; [facility], [facility]. Globulin (S) [Mass/Vol] 2.8 g/dL Normal 1.5 - 3.8 g/dL [facility], [facility].; [facility], [facility]. Glucose [Mass/Vol] 98 mg/dL Normal 74 - 106 mg/dL [facility], [facility].; [facility], [facility]. Lipid 1996 panel [address] PROFILE Normal [facility]; [facility], [facility] Potassium [Moles/Vol] 4.2 mmol/L Normal 3.5 - 5.1 mmol/L [facility], [facility].; [facility], [facility] Protein [Mass/Vol] 7.3 g/dL Normal 6.4 - 8.3 g/dL [facility], [facility].; [facility], [facility]. Sodium [Moles/Vol] 138 mmol/L Normal 136 - 145 mmol/L [facility], [facility].; [facility], [facility]. Triglyceride [Mass/Vol] 135 mg/dL Normal 0 - 150 mg/dL [facility], [facility].; [facility], [facility]. Urea nitrogen [Mass/Vol] 16 mg/dL Normal 6 - 20 mg/dL [facility].; [employer] Urea nitrogen/Creatinine [Mass ratio] 18 {ratio} Normal 0 - 30 {ratio} [facility] [employer] No Panel Informationon 02-17 49 {years} Normal [place] [employer] [facility].; [employer]. Laboratory - Chemistry and C hemistry - challengeon 08-30-2013 Albumin/Creatinine DL <= 20 mg/L (U) [Mass ratio] mg/g Normal [facility].; [employer] [employer] Creatinine (U) [Mass/Vol] 200 mg/dL Normal [employer].; [employer]. Laboratory - Hematology and Cell countson 08-30-2013 HbA1c (Bld) [Mass fraction] 6.5 % Normal 4.6 - 7.1 % [facility].; [employer]. Laboratory - Urinalysison Protein Ql (U) 10mg/dl Normal [facility] [employer]. Laboratory - Chemistry and C hemistry - challengeon 07-07-2013 TSH Qn 0.81 m[IU]/L Normal 0.40 - 4.50 {mIU/L} [facility].; [employer], [place]. Office Visiton 06-08-2013 Colonoscopy (procedure) Abnormal Invalid Interpretation Code [facility] Work Phone: Laboratory - Hematology and Cell countson 04-26-2013 HbA1c (Bld) [Mass fraction] 7.1 % Normal 4.6 - 7.1 % [facility]; [employer] Laboratory - Chemistry and C hemistry - challengeon 01-21-2013 Albumin [Mass/Vol] 4.3 g/dL Normal 3.5 - 5.0 g/dL [facility].; [employer], [place] Albumin/Globulin [Mass ratio] 1.8 {ratio} Abnormal [employer] [facility].; [employer] ALP [Catalytic activity/Vol] 112 U/L Normal 50 - 136 U/L [facility]; [facility]. ALT [Catalytic activity/Vol] 35 mmol/L Normal 12 - 49 mmol/L [facility].; [facility], [facility]. AST [Catalytic activity/Vol] 28 U/L Normal 15 - 37 U/L [facility].; [place] [employer] [facility], [facility]. Bilirubin [Mass/Vol] 0.3 mg/dL Normal 0.3 - 1 .0 mg/dL [facility].; [facility], [facility]. Calcium [Mass/Vol] 9.2 mg/dL Normal 8.4 - 10. 6 mg/dL [facility].; [facility], [facility]. Chloride [Moles/Vol] 108 mmol/L Normal 98 - 11 0 mmol/L [facility].; [facility], [facility]. Cholesterol [Mass/Vol] 189 mg/dL Normal 0 - 2 00 mg/dL [facility], [facility].; [facility], [facility]. Cholesterol in HDL [Mass/Vol] 40 mg/dL Normal 40 - 60 mg/dL [facility].; [employer], [facility]. Cholesterol in LDL [Mass/Vol] 121 mg/dL Abnormal 0 - 100 mg/dL [facility].; [facility], [facility]. Cholesterol in VLDL [Mass/Vol] - Normal [facility]; [facility]. Cholesterol.total/Ramonita sterol in HDL [Mass ratio] 4.7 {ratio} Normal 0 - 5.0 [facility].; [facility], [facility]. CO2 [Moles/Vol] 29.0 {freeman/L} Normal 22.0 - 32.0 {freeman/L} [facility].; [place] [employer] [facility], [facility]. Creatinine [Mass/Vol] 0.7 mg/dL Normal 0.6 - 1.4 mg/dL [facility].; [facility], [facility]. Globulin (S) [Mass/Vol] 2.4 g/dL Normal 1.5 - 3.8 g/dL [facility], [facility].; [place] [employer] [facility], [facility]. Glucose [Mass/Vol] 107 mg/dL Abnormal 75 - 105 mg/dL [facility].; [facility]. Potassium [Moles/Vol] 4.3 mmol/L Normal 3.50 - 5.00 meq/L [facility]; [facility] Protein [Mass/Vol] 6.7 g/dL Normal 6.4 - 8.2 g/dL [facility]; [place] [employer] [facility] Sodium [Moles/Vol] 142 mmol/L Normal 136 - 145 mmol/L [facility]; [place] [employer] [facility] Triglyceride [Mass/Vol] 140 mg/dL Normal 40 - 150 mg/dL [facility]; [place] [employer] [facility] Urea nitrogen [Mass/Vol] 16 mg/dL Normal 7.0 - 20.0 mg/dL [facility]; [place] [employer] [facility] Urea nitrogen/Creatinine [Mass ratio] 23 mg/mg Normal 0 - 30 [facility]; [employer] [employer] [facility] Laboratory - Hematology and Cell countson 01-21-2013 HbA1c (Bld) [Mass fraction] 6.4 % Normal 4.6 - 7.1 % [facility]; [employer] [employer] [facility] No Panel Informationon 01-21 89 Normal [facility]; [employer] [facility]. - Normal [facility].; [employer] [facility] Laboratory - Chemistry and C hemistry - challengeon 09-08-2012 Albumin/Creatinine DL <= 20 mg/L (U) [Mass ratio] normal Normal [facility]; [employer], [facility] Creatinine (U) [Mass/Vol] 50 mg/dL Normal [facility].; [employer] [facility]. Laboratory - Urinalysison Protein Ql (U) Negative Normal [facility]; [employer] [employer], [facility] Laboratory - Chemistry and C hemistry - challengeon 08-20-2012 Albumin [Mass/Vol] 4.3 g/dL Normal 3.5 - 5.0 g/dL [facility].; [employer], [facility] Albumin/Globulin [Mass ratio] 1.9 {ratio} Abnormal [facility] [employer] [facility]; [facility]. ALP [Catalytic activity/Vol] 124 U/L Normal 50 - 136 U/L [facility].; [facility]. ALT [Catalytic activity/Vol] 40 mmol/L Normal 12 - 49 mmol/L [facility].; [facility], [facility]. AST [Catalytic activity/Vol] 28 U/L Normal 15 - 37 U/L [facility].; [facility]. Bilirubin [Mass/Vol] 0.4 mg/dL Normal 0.3 - 1 .0 mg/dL [facility].; [facility], [facility]. Calcium [Mass/Vol] 9.2 mg/dL Normal 8.4 - 10. 6 mg/dL [facility].; [facility]. Chloride [Moles/Vol] 107 mmol/L Normal 98 - 11 0 mmol/L [facility].; [facility], [facility]. Cholesterol [Mass/Vol] 163 mg/dL Normal 0 - 2 00 mg/dL [facility].; [facility]. Cholesterol in HDL [Mass/Vol] 40 mg/dL Normal 40 - 60 mg/dL [facility].; [facility]. Cholesterol in LDL [Mass/Vol] 69 mg/dL Normal 50.0 - 130.0 mg/dL [facility].; [facility]. Cholesterol in VLDL [Mass/Vol] - Normal [facility].; [facility] Cholesterol.total/Ramonita sterol in HDL [Mass ratio] 4.1 {ratio} Normal 0 - 5.0 [facility].; [place] [employer] [facility], [facility]. CO2 [Moles/Vol] 28.0 {freeman/L} Normal 22.0 - 32.0 {freeman/L} [facility].; [place] [employer] [facility], [facility]. Creatinine [Mass/Vol] 0.8 mg/dL Normal 0.6 - 1.4 mg/dL [facility], [facility].; [place] [employer] [facility], [facility]. Globulin (S) [Mass/Vol] 2.3 g/dL Normal 1.5 - 3.8 g/dL [facility].; [facility]. Glucose [Mass/Vol] 115 mg/dL Abnormal 75 - 105 mg/dL [facility].; [facility]. Potassium [Moles/Vol] 4.5 mmol/L Normal 3.50 - 5.00 meq/L [facility].; [place] [employer] [facility], [facility] Protein [Mass/Vol] 6.6 g/dL Normal 6.4 - 8.2 g/dL [facility].; [facility]. Sodium [Moles/Vol] 143 mmol/L Normal 136 - 145 mmol/L [facility].; [place] [employer] [facility], [facility]. Triglyceride [Mass/Vol] 269 mg/dL Abnormal 40 - 150 mg/dL [facility].; [place] [employer] [facility], [facility]. Urea nitrogen [Mass/Vol] 14 mg/dL Normal 7.0 - 20.0 mg/dL [facility].; [employer], [facility] Urea nitrogen/Creatinine [Mass ratio] 18 mg/mg Normal 0 - 30 [facility].; [employer] [facility]. Laboratory - Hematology and Cell countson 08-20-2012 HbA1c (Bld) [Mass fraction] 7.3 % Abnormal 4.6 - 7.1 % [facility].; [place] [employer] [facility]. No Panel Informationon 08-20 - Normal [facility].; [employer] [employer] [facility] Laboratory - Hematology and Cell countson 03-30-2012 HbA1c (Bld) [Mass fraction] 7.2 % Abnormal 4.6 - 7.1 % [facility].; [employer] [facility]. Laboratory - Hematology and Cell countson 12-30-2011 HbA1c (Bld) [Mass fraction] 6.5 % Normal 4.6 - 7.1 % [facility].; [employer], [facility]. Laboratory - Chemistry and C hemistry - challengeon 12-19-2011 Albumin [Mass/Vol] 5.0 g/dL Normal 3.5 - 5.0 g/dL [facility].; [employer], [facility]. Albumin/Globulin [Mass ratio] 1.9 {ratio} Abnormal [facility].; [facility]. ALP [Catalytic activity/Vol] 108 U/L Normal 50 - 136 U/L [facility].; [facility], [facility]. ALT [Catalytic activity/Vol] 33 mmol/L Normal 12 - 49 mmol/L [facility].; [facility], [facility]. AST [Catalytic activity/Vol] 27 U/L Normal 15 - 37 U/L [facility].; [facility], [facility]. Bilirubin [Mass/Vol] 0.4 mg/dL Normal 0.3 - 1 .0 mg/dL [facility], [facility].; [facility], [facility]. Calcium [Mass/Vol] 10.1 mg/dL Normal 8.4 - 10. 6 mg/dL [facility].; [facility], [facility]. Chloride [Moles/Vol] 107 mmol/L Normal 98 - 11 0 mmol/L [facility], [facility].; [facility], [facility]. Cholesterol [Mass/Vol] 216 mg/dL Abnormal 0 - 2 00 mg/dL [facility].; [facility] [employer], [facility]. Cholesterol in HDL [Mass/Vol] 46 mg/dL Normal 40 - 60 mg/dL [facility].; [facility], [facility]. Cholesterol in LDL [Mass/Vol] 145 mg/dL Abnormal 50.0 - 130.0 mg/dL [facility].; [facility], [facility]. Cholesterol.total/Ramonita sterol in HDL [Mass ratio] 4.7 {ratio} Normal 0 - 5.0 [facility].; [place] [employer] [facility], [facility]. CO2 [Moles/Vol] 28.0 {freeman/L} Normal 22.0 - 32.0 {freeman/L} [facility].; [place] [employer] [facility], [facility]. Creatinine [Mass/Vol] 0.9 mg/dL Normal 0.6 - 1.4 mg/dL [facility].; [facility], [facility]. Globulin (S) [Mass/Vol] 2.6 g/dL Normal 1.5 - 3.8 g/dL [facility], [facility].; [facility], [facility]. Glucose [Mass/Vol] 97 mg/dL Normal 75 - 105 mg/dL [facility].; [place] [employer] [facility], [facility]. Potassium [Moles/Vol] 4.7 mmol/L Normal 3.50 - 5.00 meq/L [facility].; [facility], [facility]. Protein [Mass/Vol] 7.6 g/dL Normal 6.4 - 8.2 g/dL [facility].; [place] [employer] [facility], [facility]. Sodium [Moles/Vol] 143 mmol/L Normal 136 - 145 mmol/L [facility].; [place] [employer] [facility], [facility]. Triglyceride [Mass/Vol] 124 mg/dL Normal 40 - 150 mg/dL [facility].; [place] [employer] [facility], [facility]. Urea nitrogen [Mass/Vol] 18 mg/dL Normal 7.0 - 20.0 mg/dL [facility].; [place] [employer] [facility], [facility]. Urea nitrogen/Creatinine [Mass ratio] 20 mg/mg Normal 0 - 30 [facility].; [place] [employer] [facility], [facility]. Laboratory - Chemistry and C hemistry - challengeon 08-27-2011 Albumin/Creatinine DL <= 20 mg/L (U) [Mass ratio] <30mg/d Normal [facility].; [employer], [place]. Creatinine (U) [Mass/Vol] 300 mg/dL Normal [facility].; [place] [employer] [facility], [facility]. Laboratory - Urinalysison Protein Ql (U) 30 mg/dL Abnormal [facility].; [employer] [facility]. No Panel Informationon 08-18 Negative Normal [facility].; [employer]. 1000 Normal [facility].; [employer]. normal Normal [facility].; [employer], [place]. 275 Normal [employer] [facility].; [employer], [place]. 248 Normal [employer] [facility].; [employer], [place]. 235 Normal [employer].; [employer], [place]. 153 Normal [facility].; [employer]. Laboratory - Hematology and Cell countson 08-12-2011 HbA1c (Bld) [Mass fraction] 7.5 % Abnormal 4.6 - 7.1 % [facility].; [facility] Laboratory - Chemistry and C hemistry - challengeon 08-08-2011 Albumin [Mass/Vol] 4.5 g/dL Normal 3.5 - 5.0 g/dL [facility].; [facility], [facility] Albumin/Globulin [Mass ratio] 1.9 {ratio} Abnormal [facility].; [facility] ALP [Catalytic activity/Vol] 130 U/L Normal 50 - 136 U/L [facility].; [facility], [facility]. ALT [Catalytic activity/Vol] 39 mmol/L Normal 12 - 49 mmol/L [facility].; [facility], [facility]. AST [Catalytic activity/Vol] 28 U/L Normal 15 - 37 U/L [facility], [facility].; [place] [employer] [facility], [facility] [facility] Bilirubin [Mass/Vol] 0.4 mg/dL Normal 0.3 - 1 .0 mg/dL [facility].; [facility], [facility]. Calcium [Mass/Vol] 9.4 mg/dL Normal 8.4 - 10. 6 mg/dL [facility].; [facility]. Chloride [Moles/Vol] 114 mmol/L Abnormal 98 - 11 0 mmol/L [facility].; [place] [facility], [facility]. Cholesterol [Mass/Vol] 190 mg/dL Normal 0 - 2 00 mg/dL [facility].; [facility], [facility]. Cholesterol in HDL [Mass/Vol] 43 mg/dL Normal 40 - 60 mg/dL [facility].; [facility], [facility]. Cholesterol in LDL [Mass/Vol] 96 mg/dL Normal 50.0 - 130.0 mg/dL [facility].; [place] [facility], [facility]. Cholesterol.total/Ramonita sterol in HDL [Mass ratio] 4.4 {ratio} Normal 0 - 5.0 [facility], [facility].; [place] [facility], [facility]. CO2 [Moles/Vol] 30.0 {freeman/L} Normal 22.0 - 32.0 {freeman/L} [facility].; [facility]. Creatinine [Mass/Vol] 0.7 mg/dL Normal 0.6 - 1.4 mg/dL [facility].; [facility]. Globulin (S) [Mass/Vol] 2.4 g/dL Normal 1.5 - 3.8 g/dL [facility].; [facility], [facility] Glucose [Mass/Vol] 141 mg/dL Abnormal 75 - 105 mg/dL [facility].; [facility], [facility]. Potassium [Moles/Vol] 4.8 mmol/L Normal 3.50 - 5.00 meq/L [facility].; [facility], [facility] Protein [Mass/Vol] 6.9 g/dL Normal 6.4 - 8.2 g/dL [facility].; [facility], [facility]. Sodium [Moles/Vol] 149 mmol/L Abnormal 136 - 145 mmol/L [facility].; [facility], [facility] Triglyceride [Mass/Vol] 254 mg/dL Abnormal 40 - 150 mg/dL [facility].; [facility], [facility]. Urea nitrogen [Mass/Vol] 11 mg/dL Normal 7.0 - 20.0 mg/dL [facility].; [facility], [facility]. Urea nitrogen/Creatinine [Mass ratio] 16 mg/mg Normal 0 - 30 [facility].; [place] [facility], [facility]. Laboratory - Chemistry and C hemistry - challengeon 08-16-2010 Albumin [Mass/Vol] 4.4 g/dL Normal 3.5 - 5.0 g/dL [facility].; [facility], [facility]. Albumin/Globulin [Mass ratio] 1.8 {ratio} Abnormal [facility].; [facility], [facility]. ALP [Catalytic activity/Vol] 111 U/L Normal 50 - 136 U/L [facility].; [facility], [facility]. ALT [Catalytic activity/Vol] 22 mmol/L Normal 12 - 49 mmol/L [facility], [facility].; [facility], [facility]. AST [Catalytic activity/Vol] 23 U/L Normal 15 - 37 U/L [facility].; [facility] Bilirubin [Mass/Vol] 0.4 mg/dL Normal 0.3 - 1 .0 mg/dL [facility], [facility].; [facility], [facility]. Calcium [Mass/Vol] 9.5 mg/dL Normal 8.2 - 10. 2 mg/dL [facility], [facility].; [facility], [facility]. Chloride [Moles/Vol] 106 mmol/L Normal 97.0 - 107.0 meq/L [facility], [facility].; [facility], [facility]. Cholesterol [Mass/Vol] 201 mg/dL Abnormal 0 - 2 00 mg/dL [facility], [facility].; [facility], [facility]. Cholesterol in HDL [Mass/Vol] 48 mg/dL Normal 40 - 60 mg/dL [facility], [facility].; [facility], [facility]. Cholesterol in LDL [Mass/Vol] 115 mg/dL Abnormal 0 - 100 mg/dL [facility], [facility].; [facility], [facility]. Cholesterol.total/Ramonita sterol in HDL [Mass ratio] 4.2 {ratio} Normal 0 - 5.0 [facility], [facility].; [facility], [facility]. CO2 [Moles/Vol] 28.0 mmol/L Normal [facility].; [facility], [facility]. Creatinine [Mass/Vol] 0.7 mg/dL Abnormal 0.8 - 1.4 mg/dL [facility], [facility].; [facility], [facility]. Globulin (S) [Mass/Vol] 2.4 g/dL Normal 1.5 - 3.8 g/dL [facility], [facility].; [facility], [facility]. Glucose [Mass/Vol] 90 mg/dL Normal 75 - 105 mg/dL [facility], [facility].; [facility], [facility]. Potassium [Moles/Vol] 4.3 mmol/L Normal 3.5 - 5 meq/L [facility], [facility].; [facility], [facility]. Protein [Mass/Vol] 6.8 g/dL Normal 6.4 - 8.2 g/dL [facility], [facility].; [facility], [facility]. Sodium [Moles/Vol] 139 mmol/L Normal 136 - 145 mmol/L [facility], [facility].; [facility], [facility]. Triglyceride [Mass/Vol] 191 mg/dL Abnormal 0 - 150 mg/dL [facility].; [facility], [facility] Urea nitrogen [Mass/Vol] 14 mg/dL Normal 7.0 - 20.0 mg/dL [facility].; [facility], [facility] Urea nitrogen/Creatinine [Mass ratio] 20 mg/mg Normal 0 - 30 [facility].; [facility], [facility] Vital Signs Date Time Vital Sign Value Performing Clinician Facility 03-07-2025 08:35-0400 Body mass index (BMI) [Ratio] 30.05 kg/m2 aRissa Griffith APRN.TECHNICAL RECRUITER Work Phone: [facility] 03-07-2025 08:35-0400 Body temperature 97.5 [degF] Raissa Griffith APRN.TECHNICAL RECRUITER Work Phone: [facility] 03-07-2025 08:35-0400 Body weight 82.2 kg Raissa Griffith APRN.TECHNICAL RECRUITER Work Phone: [facility] 03-07-2025 08:35-0400 Diastolic blood pressure 78 mm[Hg] Raissa Griffith APRN.TECHNICAL RECRUITER Work Phone: [facility] 03-07-2025 08:35-0400 Heart rate 82 /min Raissa Griffith APRN.TECHNICAL RECRUITER Work Phone: [facility] 03-07-2025 08:35-0400 Respiratory rate 16 /min Raissa Griffith APRN.TECHNICAL RECRUITER Work Phone: [facility] 03-07-2025 08:35-0400 SaO2% (BldA) [Mass fraction] 99 % Raissa Griffith APRN.TECHNICAL RECRUITER Work Phone: [facility] 03-07-2025 08:35-0400 Systolic blood pressure 128 mm[Hg] Raissa Griffith APRN.TECHNICAL RECRUITER Work Phone: [facility] 02-23-2025 09:00-0400 Body height 168.91 cm Dania Michel MA [facility], [facility].; [facility], [facility] 02-23-2025 09:00-0400 Body mass index (BMI) [Ratio] 28.46 kg/m2 Dania Anand SIBLEY [facility] [place] [facility] 02-23-2025 09:00-0400 Body surface area Derived from formula 1.92 m2 Dania Michel MA [facility] [employer] [facility] 02-23-2025 09:00-0400 Body weight 81.19 kg Dania Anand SIBLEY [facility] [employer] 02-23-2025 09:00-0400 Diastolic blood pressure 74 mm[Hg] Dania Anand SIBLEY [facility] [place] [employer] [facility] 02-23-2025 09:00-0400 Heart rate 92 /min Dania Michel MA [facility], [facility].; [place] [employer] [facility] 02-23-2025 09:00-0400 Systolic blood pressure 109 mm[Hg] Dania Michel MA [facility] [employer] 12-27-2024 10:38-0500 Body height 168.91 cm Itzel Pickett MA [facility] [place] [employer] [facility] 12-27-2024 10:38-0500 Body mass index (BMI) [Ratio] 27.71 kg/m2 Itzel Pickett MA [facility] [employer] 12-27-2024 10:38-0500 Body surface area Derived from formula 1.9 m2 Itzel Pickett MA [facility] [employer] 12-27-2024 10:38-0500 Body weight 79.07 kg Itzel Pickett MA [place] [facility], [facility].; [employer] 12-27-2024 10:38-0500 Diastolic blood pressure 91 mm[Hg] Itzel Pickett MA [place] [facility] [employer] 12-27-2024 10:38-0500 Heart rate 86 /min Itzel Pickett MA [place] [facility], [facility] [employer] [place]. 12-27-2024 10:38-0500 Systolic blood pressure 145 mm[Hg] Itzel Pickett MA [facility], [facility].; [place] [facility]. 08-25-2024 15:55-0400 Body height 168.91 cm Dania Michel MA [facility], [facility].; [facility], [facility]. 08-25-2024 15:55-0400 Body mass index (BMI) [Ratio] 28.3 kg/m2 Dania Michel MA [facility], [facility].; [place] [facility]. 08-25-2024 15:55-0400 Body surface area Derived from formula 1.91 m2 Dania Michel MA [facility].; [place] [facility]. 08-25-2024 15:55-0400 Body weight 80.74 kg Dania Michel MA [facility].; [place] [facility]. 08-25-2024 15:55-0400 Diastolic blood pressure 80 mm[Hg] Dania Michel MA [facility].; [place] [facility]. 08-25-2024 15:55-0400 Heart rate 82 /min Dania Michel MA [facility].; [place] [facility]. 08-25-2024 15:55-0400 Systolic blood pressure 119 mm[Hg] Dania Michel MA [facility].; [place] [facility], [facility]. 07-11-2024 09:18-0400 Body height 165.4 cm Rupali Sage APRN.TECHNICAL RECRUITER Work Phone: [facility] 07-11-2024 09:18-0400 Body mass index (BMI) [Ratio] 29.22 kg/m2 Rupali Sage APRN.TECHNICAL RECRUITER Work Phone: [facility] 07-11-2024 09:18-0400 Body weight 79.92 kg Rupali Sage APRN.TECHNICAL RECRUITER Work Phone: [facility] 07-11-2024 09:18-0400 Diastolic blood pressure 76 mm[Hg] Rupali Sage APRN.TECHNICAL RECRUITER Work Phone: [facility] 07-11-2024 09:18-0400 Respiratory rate 16 /min Rupali Sage APRN.TECHNICAL RECRUITER Work Phone: [facility] 07-11-2024 09:18-0400 Systolic blood pressure 122 mm[Hg] Rupali Sage APRN.CNP Work Phone: [facility] 02-18-2024 09:04-0400 Body height 168.91 cm Dania Michel MA [facility], [facility].; [employer] [facility] 02-18-2024 09:04-0400 Body mass index (BMI) [Ratio] 28.46 kg/m2 Dania Michel MA [facility], [facility].; [facility]. 02-18-2024 09:04-0400 Body surface area Derived from formula 1.92 m2 Dania Michel MA [facility], [facility].; [place] [facility], [facility]. 02-18-2024 09:04-0400 Body weight 81.19 kg Dania Michel MA [facility].; [place] [facility]. 02-18-2024 09:04-0400 Diastolic blood pressure 81 mm[Hg] Dania Michel MA [facility].; [employer] [facility]. 02-18-2024 09:04-0400 Heart rate 96 /min Dania Michel MA [facility].; [place] [employer] [facility]. 02-18-2024 09:04-0400 Systolic blood pressure 119 mm[Hg] Dan[facility] Michel [facility].; [employer] [facility] 12-22-2023 11:53-0500 Body height 165.1 cm [facility] 11-12-2023 11:28-0500 Body temperature 97 [degF] [facility] 11-12-2023 11:28-0500 Diastolic blood pressure 85 mm[Hg] [facility] 11-12-2023 11:28-0500 Heart rate 93 /min [facility] 11-12-2023 11:28-0500 Respiratory rate 16 /min [facility] 11-12-2023 11:28-0500 SaO2% (BldA) [Mass fraction] 94 % [facility] 11-12-2023 11:28-0500 Systolic blood pressure 134 mm[Hg] [facility] 11-12-2023 10:00-0500 Inhaled oxygen flow rate 2 L/min [facility] 11-12-2023 06:26-0500 Body height 165.1 cm [facility] 11-12-2023 06:26-0500 Body mass index (BMI) [Ratio] 28.7 kg/m2 [facility] 11-12-2023 06:26-0500 Body weight 78.3 kg [facility] 10-19-2023 15:50-0500 Body height 168.91 cm Itzel Pickett MA [facility] [employer] [facility] 10-19-2023 15:50-0500 Body mass index (BMI) [Ratio] 27.5 kg/m2 Itzel Pickett MA [employer] [facility].; [employer] 10-19-2023 15:50-0500 Body surface area Derived from formula 1.89 m2 Itzel Pickett MA [employer] [facility].; [employer] 10-19-2023 15:50-0500 Body weight 78.47 kg Itzel Pickett MA [employer] [facility] [employer] 10-19-2023 15:50-0500 Diastolic blood pressure 79 mm[Hg] Itzel Pickett MA [employer] 10-19-2023 15:50-0500 Heart rate 91 /min Itzel Pickett MA [facility] [facility] [employer] 10-19-2023 15:50-0500 Systolic blood pressure 121 mm[Hg] Itzel Pickett MA [employer] [facility] [employer] 08-06-2023 15:48-0400 Body weight 80.97 kg Itzel Pickett MA [employer] [employer] 08-06-2023 15:48-0400 Diastolic blood pressure 85 mm[Hg] Itzel Pickett MA [employer] 08-06-2023 15:48-0400 Heart rate 80 /min Itzel Pickett MA [facility]. 08-06-2023 15:48-0400 Systolic blood pressure 127 mm[Hg] Itzel Pickett MA [facility].; [facility], [facility]. 05-10-2023 09:37-0400 Body height 166.4 cm Rupali Sage APRN.TECHNICAL RECRUITER Work Phone: [facility] 05-10-2023 09:37-0400 Body weight 83.01 kg Rupali Sage CERTIFIED DIALYSIS TECHNICIAN.TECHNICAL RECRUITER Work Phone: [facility] 05-10-2023 09:37-0400 Diastolic blood pressure 82 mm[Hg] Rupali Sage CERTIFIED DIALYSIS TECHNICIAN.TECHNICAL RECRUITER Work Phone: [facility] 05-10-2023 09:37-0400 Systolic blood pressure 132 mm[Hg] Rupali Sage CERTIFIED DIALYSIS TECHNICIAN.TECHNICAL RECRUITER Work Phone: [facility] 01-28-2023 09:28-0400 Body height 168.91 cm Chely Vilchis MA [facility].; [facility], [facility]. 01-28-2023 09:28-0400 Body mass index (BMI) [Ratio] 29.25 kg/m2 Chely Vilchis MA [facility], [facility].; [facility], [facility]. 01-28-2023 09:28-0400 Body surface area Derived from formula 1.94 m2 Chely Vilchis MA [facility].; [facility]. 01-28-2023 09:28-0400 Body weight 83.46 kg Chely Vilchis MA [facility].; [place] [facility], [facility]. 01-28-2023 09:28-0400 Diastolic blood pressure 77 mm[Hg] Chely Vilchis MA [facility], [facility].; [facility]. 01-28-2023 09:28-0400 Heart rate 89 /min Chely Vilchis MA [facility], [facility].; [facility], [facility]. 01-28-2023 09:28-0400 Systolic blood pressure 110 mm[Hg] Chely Vilchis MA [facility].; [facility] 10-09-2022 15:22-0500 Diastolic blood pressure 84 mm[Hg] [facility] 10-09-2022 15:22-0500 Heart rate 82 /min [facility] 10-09-2022 15:22-0500 Respiratory rate 18 /min [facility] 10-09-2022 15:22-0500 SaO2% (BldA) [Mass fraction] 100 % [facility] 10-09-2022 15:22-0500 Systolic blood pressure 133 mm[Hg] [facility] 10-09-2022 14:11-0500 Body temperature 97.1 [degF] [facility] 10-09-2022 08:42-0500 Body height 165.1 cm [facility] 10-09-2022 08:42-0500 Body mass index (BMI) [Ratio] 30.1 kg/m2 [facility] 10-09-2022 08:42-0500 Body weight 82.1 kg [facility] 08-13-2022 15:48-0400 Body height 168.91 cm Valerie Snow LPN [facility], [facility]. 08-13-2022 15:48-0400 Body mass index (BMI) [Ratio] 29.89 kg/m2 Valerie Snow LPN [facility] 08-13-2022 15:48-0400 Body surface area Derived from formula 1.96 m2 Valerie Snow LPN [facility], [facility]. 08-13-2022 15:48-0400 Body weight 85.28 kg Valerie Snow LPN [facility] [place] [facility], [facility]. 08-13-2022 15:48-0400 Diastolic blood pressure 78 mm[Hg] Valerie Snow LPN [facility] 08-13-2022 15:48-0400 Heart rate 94 /min Valerie Snow LPN [facility], [facility]. 08-13-2022 15:48-0400 Systolic blood pressure 118 mm[Hg] Valerie Snow LPN [facility], [facility].; [facility]. 01-28-2022 10:23-0400 Body height 168.91 cm Valerie Snow LPN [facility], [facility].; [place] [facility]. 01-28-2022 10:23-0400 Body mass index (BMI) [Ratio] 27.66 kg/m2 Valerie Snow LPN [facility], [facility].; [place] [facility]. 01-28-2022 10:23-0400 Body surface area Derived from formula 1.9 m2 Valerie Snow LPN [facility].; [place] [facility]. 01-28-2022 10:23-0400 Body weight 78.93 kg Valerie Snow LPN [facility].; [place] [employer] [facility]. 01-28-2022 10:23-0400 Diastolic blood pressure 88 mm[Hg] Valerie Snow LPN [facility].; [place] [facility]. 01-28-2022 10:23-0400 Heart rate 88 /min Valeriejon Snow LPN [facility].; [place] [place] [employer] [facility] 01-28-2022 10:23-0400 Systolic blood pressure 125 mm[Hg] Valerie Snow LPN [facility].; [employer] [facility]. 12-02-2021 08:48-0500 Body height 168.91 cm Damari Tijerina RN [facility].; [place] [place] [employer] [facility] 12-02-2021 08:48-0500 Body mass index (BMI) [Ratio] 27.82 kg/m2 Damari Tijerina RN [facility].; [employer] 12-02-2021 08:48-0500 Body surface area Derived from formula 1.9 m2 Damari Tijerina RN [facility].; [employer] 12-02-2021 08:48-0500 Body temperature 98.4 [degF] Damari Tijerina RN [facility].; [employer] 12-02-2021 08:48-0500 Body weight 79.38 kg Damari Tijerina RN [facility].; [place] [employer] [facility]. 12-02-2021 08:48-0500 Diastolic blood pressure 81 mm[Hg] Damari Tijerina RN [facility].; [place] [employer] [facility]. 12-02-2021 08:48-0500 Heart rate 85 /min Damari Tijerina RN [facility].; [place] [employer] [facility]. 12-02-2021 08:48-0500 Inhaled oxygen concentration 20 % Damari Tijerina RN [facility].; [place] [employer] [facility]. 12-02-2021 08:48-0500 Inhaled oxygen concentration 21 % Damari Tijerina RN [facility].; [place] [employer] [facility]. 12-02-2021 08:48-0500 SaO2% (BldA) [Mass fraction] 98 % Damari Tijerina RN [place] [facility].; [employer] 12-02-2021 08:48-0500 Systolic blood pressure 124 mm[Hg] Damari Tijerina RN [place] [employer] [facility].; [employer] [facility]. 07-17-2021 13:20-0400 Body height 168.91 cm Avril Andersen MA [facility].; [place] [place] [employer] [facility]. 07-17-2021 13:20-0400 Body mass index (BMI) [Ratio] 29.25 kg/m2 Avril Andersen MA [facility].; [employer] [facility]. 07-17-2021 13:20-0400 Body surface area Derived from formula 1.94 m2 Avril Andersen MA [facility], [facility].; [employer] [facility]. 07-17-2021 13:20-0400 Body weight 83.46 kg Avril Andersen MA [facility], [facility].; [employer] [facility]. 07-17-2021 13:20-0400 Diastolic blood pressure 78 mm[Hg] Avril Andersen [facility].; [employer] [facility]. 07-17-2021 13:20-0400 Heart rate 84 /min Avril Andersen MA [facility], [facility].; [facility]. 07-17-2021 13:20-0400 Systolic blood pressure 113 mm[Hg] Avril Andersen MA [facility], [facility].; [facility], [facility]. 04-15-2021 14:24-0400 Body height 168.91 cm Avril Andersen MA [facility], [facility].; [facility]. 04-15-2021 14:24-0400 Body mass index (BMI) [Ratio] 29.89 kg/m2 Avril Andersen MA [facility], [facility].; [facility]. 04-15-2021 14:24-0400 Body surface area Derived from formula 1.96 m2 Avril Andersen MA [facility].; [facility]. 04-15-2021 14:24-0400 Body weight 85.28 kg Avril Andersen MA [facility].; [facility]. 04-15-2021 14:24-0400 Diastolic blood pressure 81 mm[Hg] Avril Andersen MA [facility].; [facility]. 04-15-2021 14:24-0400 Heart rate 83 /min Avril Andersen MA [facility].; [place] [employer] [facility]. 04-15-2021 14:24-0400 Systolic blood pressure 116 mm[Hg] Avril Andersen MA [facility].; [place] [employer] [facility]. 03-24-2021 13:55-0400 Body height 168.91 cm Neilee L Vess ACCESS LEAD [facility].; [place] [place] [employer] [facility], [facility]. 03-24-2021 13:55-0400 Body mass index (BMI) [Ratio] 30.21 kg/m2 Neilee L Vess ACCESS LEAD [place] [facility], [facility].; [employer] 03-24-2021 13:55-0400 Body surface area Derived from formula 1.97 m2 Neilee L Vess ACCESS LEAD [facility], [facility].; [employer] [facility]. 03-24-2021 13:55-0400 Body weight 86.18 kg Neilee L Vess ACCESS LEAD [facility], [facility].; [place] [employer] [facility]. 03-24-2021 13:55-0400 Diastolic blood pressure 88 mm[Hg] Neilee L Vess ACCESS LEAD [facility], [facility].; [employer] [facility]. 03-24-2021 13:55-0400 Heart rate 88 /min Neilee L Vess ACCESS LEAD [facility], [facility].; [employer] [facility]. 03-24-2021 13:55-0400 Systolic blood pressure 152 mm[Hg] Neilee L Vess ACCESS LEAD [facility].; [employer] [facility]. 2021 09:12-0500 Body height 168.91 cm Neilee L Vess ACCESS LEAD [facility].; [employer] [facility]. 2021 09:12-0500 Body mass index (BMI) [Ratio] 30.05 kg/m2 Neilee L Vess ACCESS LEAD [place] [facility].; [employer] [facility]. 2021 09:12-0500 Body surface area Derived from formula 1.96 m2 Neilee L Vess ACCESS LEAD [place] [employer] [facility].; [employer] [facility]. 2021 09:12-0500 Body weight 85.73 kg Neilee L Vess ACCESS LEAD [place] [facility].; [employer] [facility]. 2021 09:12-0500 Diastolic blood pressure 84 mm[Hg] Neilee L Vess ACCESS LEAD [place] [employer] [facility].; [employer] [facility]. 2021 09:12-0500 Heart rate 83 /min Neilee L Vess ACCESS LEAD [place] [facility].; [employer] [facility]. 2021 09:12-0500 Systolic blood pressure 132 mm[Hg] Neilee L Vess ACCESS LEAD [place] [employer] [facility].; [employer] [facility]. 12-17-2020 09:50-0500 Body height 168.91 cm Neilee L Vess ACCESS LEAD [employer] [facility].; [employer] [facility]. 12-17-2020 09:50-0500 Body mass index (BMI) [Ratio] 30.21 kg/m2 Neilee L Vess ACCESS LEAD [place] [facility], [facility].; [employer] [facility]. 12-17-2020 09:50-0500 Body surface area Derived from formula 1.97 m2 Neilee L Vess ACCESS LEAD [facility], Inc.; [employer] [facility]. 12-17-2020 09:50-0500 Body temperature 97.9 [degF] Neilee L Vess ACCESS LEAD [place] [employer] [facility].; [employer] [facility]. 12-17-2020 09:50-0500 Body weight 86.18 kg Neilee L Vess ACCESS LEAD [employer] [facility].; [employer] [facility]. 12-17-2020 09:50-0500 Diastolic blood pressure 93 mm[Hg] Neilee L Vess ACCESS LEAD [place] [facility], Inc.; [employer] [facility]. 12-17-2020 09:50-0500 Heart rate 85 /min Neilee L Vess ACCESS LEAD [place] [facility], [facility].; [employer] [facility]. 12-17-2020 09:50-0500 Systolic blood pressure 157 mm[Hg] Neilee L Vess ACCESS LEAD [employer] [facility].; [employer] [facility]. 09-18-2020 09:22-0500 Body height 168.91 cm Yolanda Javed [facility], [facility].; [employer] [facility]. 09-18-2020 09:22-0500 Body mass index (BMI) [Ratio] 29.25 kg/m2 Yolanda Javed ACCESS LEAD [place] [employer] [facility].; [employer] [facility]. 09-18-2020 09:22-0500 Body surface area Derived from formula 1.94 m2 Yolanda Javed ACCESS LEAD [employer] [facility].; [employer]. 09-18-2020 09:22-0500 Body temperature 98.7 [degF] Yolanda Javed ACCESS LEAD [place] [employer] [facility], [facility].; [employer]. 09-18-2020 09:22-0500 Body weight 83.46 kg Yolanda Javed [facility] [employer] [facility].; [employer]. 09-18-2020 09:22-0500 Diastolic blood pressure 87 mm[Hg] Yolanda Bullard Tegan ZABALA [place] [facility], Inc.; [employer]. 09-18-2020 09:22-0500 Heart rate 96 /min Yolanda M Tegan ZABALA [place] [facility], Inc.; [employer] 09-18-2020 09:22-0500 Inhaled oxygen concentration 20 % Yolanda M Tegan ACCESS LEAD [place] [facility], Inc.; [employer], [place]. 09-18-2020 09:22-0500 Inhaled oxygen concentration 21 % Yolanda Bullard Tegan [facility], Inc.; [employer], [place]. 09-18-2020 09:22-0500 SaO2% (BldA) [Mass fraction] 100 % Yolanda M Tegan ZABALA [employer] [employer], [place]. 09-18-2020 09:22-0500 Systolic blood pressure 136 mm[Hg] Yolanda M Tegan ZABALA [place] [facility], Inc.; [employer] 09-12-2020 14:07-0500 Body height 168.91 cm Valerie Snow LPN [employer] [facility], Inc.; [employer], [place]. 09-12-2020 14:07-0500 Body mass index (BMI) [Ratio] 28.62 kg/m2 Valerie Snow LPN [employer] [facility], Inc.; [employer]. 09-12-2020 14:07-0500 Body surface area Derived from formula 1.92 m2 Valerie Snow LPN [place] [facility], [facility].; [employer] [place]. 09-12-2020 14:07-0500 Body weight 81.65 kg Valerie Snow LPN [employer] [facility], Inc.; [employer], [place]. 09-12-2020 14:07-0500 Diastolic blood pressure 84 mm[Hg] Valerie Snow LPN [employer] [facility], Inc.; [employer], [place]. 09-12-2020 14:07-0500 Heart rate 87 /min Valerie Snow LPN [employer], [facility].; [employer]. 09-12-2020 14:07-0500 Systolic blood pressure 127 mm[Hg] Valerie Snow LPN [facility].; [facility]. 06-12-2020 08:39-0400 Body height 168.91 cm Chely Goldberg LPN [facility].; [facility]. 06-12-2020 08:39-0400 Body mass index (BMI) [Ratio] 30.53 kg/m2 Chely Goldberg LPN [facility].; [facility]. 06-12-2020 08:39-0400 Body surface area Derived from formula 1.98 m2 Chely Goldberg ACCESS LEAD [facility].; [facility]. 06-12-2020 08:39-0400 Body weight 87.09 kg Chely Goldberg LPN [facility].; [facility]. 06-12-2020 08:39-0400 Diastolic blood pressure 76 mm[Hg] Chely Goldberg LPN [facility].; [facility]. 06-12-2020 08:39-0400 Heart rate 83 /min Chely Goldberg LPN [facility].; [facility] 06-12-2020 08:39-0400 Systolic blood pressure 136 mm[Hg] Chely Goldberg LPN [facility].; [facility]. 03-12-2020 14:54-0400 Body height 168.91 cm Sylviailee Yvette Wan ACCESS LEAD [facility].; [facility]. 03-12-2020 14:54-0400 Body mass index (BMI) [Ratio] 31.64 kg/m2 Neilee L Vess [facility].; [place] [employer] [facility]. 03-12-2020 14:54-0400 Body surface area Derived from formula 2.01 m2 Neilee L Vess ACCESS LEAD [facility], [facility].; [place] [employer] [facility]. 03-12-2020 14:54-0400 Body weight 90.27 kg Neilee L Vess [facility], [facility].; [place] [employer] [facility]. 03-12-2020 14:54-0400 Diastolic blood pressure 74 mm[Hg] Neilee L Vess ACCESS LEAD [employer]. 03-12-2020 14:54-0400 Heart rate 91 /min Neilee L Vess ACCESS LEAD [employer].; [employer] 03-12-2020 14:54-0400 Systolic blood pressure 127 mm[Hg] Neilee L Vess ACCESS LEAD [employer]. 12-13-2019 14:45-0500 Body height 168.91 cm Violet Dawn RN [employer]. 12-13-2019 14:45-0500 Body mass index (BMI) [Ratio] 31.88 kg/m2 Violet Dawn RN [employer].; [employer]. 12-13-2019 14:45-0500 Body surface area Derived from formula 2.01 m2 Violet Dawn RN [employer]. 12-13-2019 14:45-0500 Body temperature 98 [degF] Violet Dawn RN [employer]. 12-13-2019 14:45-0500 Body weight 90.95 kg Violet Dawn RN [employer]. 12-13-2019 14:45-0500 Diastolic blood pressure 76 mm[Hg] Violet Dawn RN [employer]. 12-13-2019 14:45-0500 Heart rate 95 /min Violet Dawn RN [employer].; [employer]. 12-13-2019 14:45-0500 Systolic blood pressure 133 mm[Hg] Violet Dawn RN [employer]. 09-06-2019 14:48-0400 Body height 168.91 cm Violet Dawn RN [employer]. 09-06-2019 14:48-0400 Body mass index (BMI) [Ratio] 32.39 kg/m2 Violet Dawn RN [employer].; [employer]. 09-06-2019 14:48-0400 Body surface area Derived from formula 2.03 m2 Violet Dawn RN [employer]. 09-06-2019 14:48-0400 Body temperature 98.2 [degF] Violet Dawn RN [employer]. 09-06-2019 14:48-0400 Body weight 92.4 kg Violet Dawn RN [employer]. 09-06-2019 14:48-0400 Diastolic blood pressure 70 mm[Hg] Violet Dawn RN [employer].; [employer]. 09-06-2019 14:48-0400 Heart rate 87 /min Vioelt Dawn RN [employer].; [employer]. 09-06-2019 14:48-0400 Systolic blood pressure 125 mm[Hg] Violet Dawn RN [employer]. 06-06-2019 14:39-0400 Body height 168.91 cm Neilee L Vess ACCESS LEAD [employer].; [employer]. 06-06-2019 14:39-0400 Body mass index (BMI) [Ratio] 32.27 kg/m2 Neilee L Vess ACCESS LEAD [employer].; [employer]. 06-06-2019 14:39-0400 Body surface area Derived from formula 2.02 m2 Neilee L Vess ACCESS LEAD [employer].; [employer]. 06-06-2019 14:39-0400 Body weight 92.08 kg Neilee L Vess ACCESS LEAD [employer].; [employer]. 06-06-2019 14:39-0400 Diastolic blood pressure 74 mm[Hg] Neilee L Vess ACCESS LEAD [employer], [place]. 06-06-2019 14:39-0400 Heart rate 90 /min Neilee L Vess ACCESS LEAD [employer].; [employer]. 06-06-2019 14:39-0400 Systolic blood pressure 122 mm[Hg] Neilee L Vess ACCESS LEAD [employer] 03-07-2019 10:55-0400 Body height 168.91 cm Neilee L Vess ACCESS LEAD [employer] 03-07-2019 10:55-0400 Body mass index (BMI) [Ratio] 32.91 kg/m2 Neilee L Vess ACCESS LEAD [employer].; [employer] 03-07-2019 10:55-0400 Body surface area Derived from formula 2.04 m2 Neilee L Vess ACCESS LEAD [employer]. 03-07-2019 10:55-0400 Body weight 93.9 kg Neilee L Vess ACCESS LEAD [employer]. 03-07-2019 10:55-0400 Diastolic blood pressure 74 mm[Hg] Neilee L Vess ACCESS LEAD [employer]. 03-07-2019 10:55-0400 Heart rate 86 /min Neilee L Vess ACCESS LEAD [employer].; [employer]. 03-07-2019 10:55-0400 Systolic blood pressure 128 mm[Hg] Neilee L Vess ACCESS LEAD [employer].; [employer]. 01-18-2019 09:59-0400 Body height 168.91 cm Violet Dawn RN [employer]. 01-18-2019 09:59-0400 Body mass index (BMI) [Ratio] 32.46 kg/m2 Violet Dawn RN [employer].; [employer]. 01-18-2019 09:59-0400 Body surface area Derived from formula 2.03 m2 Violet Dawn RN [employer].; [employer]. 01-18-2019 09:59-0400 Body temperature 97.5 [degF] Violet Dawn RN [employer].; [employer]. 01-18-2019 09:59-0400 Body weight 92.63 kg Violet Dawn RN [employer]. 01-18-2019 09:59-0400 Diastolic blood pressure 89 mm[Hg] Violet Dawn RN [employer] 01-18-2019 09:59-0400 Heart rate 92 /min Violet Dawn RN [employer]. 01-18-2019 09:59-0400 Systolic blood pressure 153 mm[Hg] Violet Dawn RN [employer].; [employer]. 11-16-2018 12:07-0500 Body height 168.91 cm Damari Denny [employer] PA-C Work Phone: [employer]. 11-16-2018 12:07-0500 Body mass index (BMI) [Ratio] 31.51 kg/m2 MyNewFinancialAdvisor PA-C Work Phone: [employer].; [employer]. 11-16-2018 12:07-0500 Body surface area Derived from formula 2 m2 [employer]NewFinancialAdvisor PA-C Work Phone: [employer].; [employer]. 11-16-2018 12:07-0500 Body temperature 98.6 [degF] Damari Denny [employer] PA-C Work Phone: [employer].; [employer]. 11-16-2018 12:07-0500 Body weight 89.9 kg [employer] Denny [employer] PA-C Work Phone: [employer]. 11-16-2018 12:07-0500 Diastolic blood pressure 92 mm[Hg] Damari D [employer] PA-C Work Phone: [employer].; [employer]. 11-16-2018 12:07-0500 Heart rate 111 /min Damari Denny [employer] SANDHU-C Work Phone: [employer].; [employer]. 11-16-2018 12:07-0500 Systolic blood pressure 147 mm[Hg] Damari Henson PA-C Work Phone: [employer].; [employer] 08-18-2018 14:59-0400 Body height 168.91 cm Violet Dawn RN [employer].; [employer]. 08-18-2018 14:59-0400 Body mass index (BMI) [Ratio] 31.43 kg/m2 Violet Dawn RN [employer].; [employer]. 08-18-2018 14:59-0400 Body surface area Derived from formula 2 m2 Violet Dawn RN [employer].; [employer]. 08-18-2018 14:59-0400 Body temperature 98.1 [degF] Violet Dawn RN [employer].; [employer]. 08-18-2018 14:59-0400 Body weight 89.68 kg Violet Dawn RN [employer].; [employer]. 08-18-2018 14:59-0400 Diastolic blood pressure 85 mm[Hg] Violet Dawn RN [employer].; [employer]. 08-18-2018 14:59-0400 Heart rate 87 /min Violet Dawn RN [employer].; [employer]. 08-18-2018 14:59-0400 Systolic blood pressure 140 mm[Hg] Violet Dawn RN [employer].; [employer]. 05-09-2018 13:22-0400 Body height 168.91 cm Violet Dawn RN [employer].; [employer]. 05-09-2018 13:22-0400 Body mass index (BMI) [Ratio] 30.3 kg/m2 Violet Dawn RN [employer].; [employer]. 05-09-2018 13:22-0400 Body surface area Derived from formula 1.97 m2 Violet Dawn RN [employer]. 05-09-2018 13:0400 Body temperature 98.7 [degF] Violet Dawn RN [employer] 05-09-2018 13:0400 Body weight 86.46 kg Violet Dawn RN [employer]. 05-09-2018 13:220400 Diastolic blood pressure 83 mm[Hg] Violet Dawn RN [employer]. 05-09-2018 13:0400 Heart rate 110 /min Violet Dawn RN [employer]. 05-09-2018 13:220400 Systolic blood pressure 136 mm[Hg] Violet Dawn RN [employer]. 02-09-2018 15:090400 Body height 168.91 cm Violet Dawn RN [employer].; [employer]. 02-09-2018 15:09-0400 Body mass index (BMI) [Ratio] 31.46 kg/m2 Violet Dawn RN [employer]. 02-09-2018 15:090400 Body surface area Derived from formula 2 m2 Violet Dawn RN [employer]. 02-09-2018 15:0400 Body temperature 98.5 [degF] Violet Dawn RN [employer]. 02-09-2018 15:0400 Body weight 89.77 kg Violet Dawn RN [employer].; [employer]. 02-09-2018 15:090400 Diastolic blood pressure 81 mm[Hg] Violet Dawn RN [employer].; [employer]. 02-09-2018 15:090400 Heart rate 85 /min Violet Dawn RN [employer]. 02-09-2018 15:09-0400 Systolic blood pressure 135 mm[Hg] Violet Dawn RN [employer] 11-11-2017 15:19-0500 Body height 168.91 cm Violet Dawn RN [employer]. 11-11-2017 15:19-0500 Body mass index (BMI) [Ratio] 29.59 kg/m2 Violet Dawn RN [employer]. 11-11-2017 15:19-0500 Body surface area Derived from formula 1.95 m2 Violet Dawn RN [employer]. 11-11-2017 15:19-0500 Body temperature 98.2 [degF] Violet Danw RN [employer]. 11-11-2017 15:19-0500 Body weight 84.41 kg Violet Dawn RN [employer]. 11-11-2017 15:19-0500 Diastolic blood pressure 87 mm[Hg] Violet Dawn RN [employer]. 11-11-2017 15:19-0500 Heart rate 93 /min Violet Dawn RN [employer]. 11-11-2017 15:19-0500 Systolic blood pressure 129 mm[Hg] Violet Dawn RN [employer]. 08-12-2017 11:33-0400 Body height 168.91 cm Violet Dawn RN [employer].; [employer]. 08-12-2017 11:33-0400 Body mass index (BMI) [Ratio] 31.05 kg/m2 Violet Dawn RN [employer]. 08-12-2017 11:33-0400 Body surface area Derived from formula 1.99 m2 Violet Dawn RN [employer]. 08-12-2017 11:33-0400 Body temperature 97.9 [degF] Violet Dawn RN [employer]. 08-12-2017 11:33-0400 Body weight 88.59 kg Violet Dawn RN [employer]. 08-12-2017 11:33-0400 Diastolic blood pressure 79 mm[Hg] Violet Dawn RN [employer]. 08-12-2017 11:33-0400 Heart rate 81 /min Violet Dawn RN [employer]. 08-12-2017 11:33-0400 Systolic blood pressure 118 mm[Hg] Violet Dawn RN [employer]. 06-10-2017 07:29-0400 BMI (Body Mass Index) 33.84 kg/m2 Cristobal MCKEON [facility] Work Phone: 06-10-2017 07:29-0400 Body Temperature 97.7 [degF] [facility] Work Phone: 06-10-2017 07:29-0400 BP Diastolic 86 mm[Hg] [facility] Work Phone: 06-10-2017 07:29-0400 BP Systolic 137 mm[Hg] [facility] Work Phone: 06-10-2017 07:29-0400 Height 165.1 cm [facility]obal [facility] Work Phone: 06-10-2017 07:29-0400 Pulse (Heart Rate) 77 /min [facility] Work Phone: 06-10-2017 07:29-0400 Respiratory Rate 20 /min Cristobal [facility] Work Phone: 06-10-2017 07:29-0400 Weight 92.26 kg Cristobal [facility] Work Phone: 05-17-2017 14:59-0400 Body height 168.91 cm Violet Dawn RN [employer] 05-17-2017 14:59-0400 Body mass index (BMI) [Ratio] 32.89 kg/m2 Violet Dawn RN [employer] 05-17-2017 14:59-0400 Body surface area Derived from formula 2.04 m2 Violet Dawn RN [employer] 05-17-2017 14:59-0400 Body temperature 98.5 [degF] Violet Dawn RN [employer] 05-17-2017 14:59-0400 Body weight 93.85 kg Violet Dawn RN [employer] 05-17-2017 14:59-0400 Diastolic blood pressure 73 mm[Hg] Violet Dawn RN [employer] 05-17-2017 14:59-0400 Heart rate 84 /min Violet Dawn RN [employer] 05-17-2017 14:59-0400 Systolic blood pressure 120 mm[Hg] Violet Dawn RN [employer] 04-07-2017 10:40-0400 Body height 168.91 cm Violet Dawn RN [employer].; [employer] 04-07-2017 10:40-0400 Body mass index (BMI) [Ratio] 31.73 kg/m2 Violet Dawn RN [employer] 04-07-2017 10:40-0400 Body surface area Derived from formula 2.01 m2 Violet Dawn RN [employer].; [employer] 04-07-2017 10:40-0400 Body temperature 98.5 [degF] Violet Dawn RN [employer]. 04-07-2017 10:40-0400 Body weight 90.54 kg Violet Dawn RN [employer] 04-07-2017 10:40-0400 Diastolic blood pressure 84 mm[Hg] Violet Dawn RN [employer] 04-07-2017 10:40-0400 Heart rate 91 /min Violet Dawn RN [employer]. 04-07-2017 10:40-0400 Systolic blood pressure 152 mm[Hg] Violet Dawn RN [employer].; [employer]. 02-15-2017 15:05-0400 Body height 168.91 cm Violet Dawn RN [employer].; [employer]. 02-15-2017 15:05-0400 Body mass index (BMI) [Ratio] 33.12 kg/m2 Violet Dawn RN [employer]. 02-15-2017 15:05-0400 Body surface area Derived from formula 2.05 m2 Violet Dawn RN [employer].; [employer]. 02-15-2017 15:05-0400 Body temperature 98.7 [degF] Violet Dawn RN [employer]. 02-15-2017 15:05-0400 Body weight 94.48 kg Violet Dawn RN [employer].; [employer]. 02-15-2017 15:05-0400 Diastolic blood pressure 77 mm[Hg] Violet Dawn RN [employer].; [employer]. 02-15-2017 15:05-0400 Heart rate 75 /min Violet Dawn RN [employer].; [employer]. 02-15-2017 15:05-0400 Systolic blood pressure 124 mm[Hg] Violet Dawn RN [employer].; [employer]. 08-13-2016 15:24-0400 Body height 168.91 cm Violet Dawn RN [employer].; [employer]. 08-13-2016 15:24-0400 Body mass index (BMI) [Ratio] 33.39 kg/m2 Violet Dawn RN [employer] 08-13-2016 15:24-0400 Body surface area Derived from formula 2.05 m2 Violet Dawn RN [employer]. 08-13-2016 15:24-0400 Body temperature 98.2 [degF] Violet Dawn RN [employer]. 08-13-2016 15:24-0400 Body weight 95.26 kg Violet Dawn RN [employer]. 08-13-2016 15:24-0400 Diastolic blood pressure 77 mm[Hg] Violet Dawn RN [employer]. 08-13-2016 15:24-0400 Heart rate 83 /min Violet Dawn RN [employer]. 08-13-2016 15:24-0400 Systolic blood pressure 125 mm[Hg] Violet Dawn RN [employer]. 06-01-2016 09:38-0400 Height 165.1 cm Cristobal Ewing [facility] Work Phone: 05-13-2016 11:57-0400 Body height 168.91 cm Violet Dawn RN [employer]. 05-13-2016 11:57-0400 Body mass index (BMI) [Ratio] 34.01 kg/m2 Violet Dawn RN [employer] 05-13-2016 11:57-0400 Body surface area Derived from formula 2.07 m2 Violet Dawn RN [employer]. 05-13-2016 11:57-0400 Body temperature 98.6 [degF] Violet Dawn RN [employer]. 05-13-2016 11:57-0400 Body weight 97.03 kg [facility] [employer]. 05-13-2016 11:57-0400 Diastolic blood pressure 91 mm[Hg] Violet Dawn RN [facility] [employer]. 05-13-2016 11:57-0400 Heart rate 83 /min Violet Dawn RN [facility] [employer]. 05-13-2016 11:57-0400 Systolic blood pressure 141 mm[Hg] Violet Dawn RN [employer]. 03-20-2016 08:47-0400 Body height 168.91 cm Damari Tijerina RN [facility] [employer]. 03-20-2016 08:47-0400 Body mass index (BMI) [Ratio] 33.7 kg/m2 Damari Tijerina RN [employer]. 03-20-2016 08:47-0400 Body surface area Derived from formula 2.06 m2 Damari Tijerina RN [employer]. 03-20-2016 08:47-0400 Body weight 96.16 kg Damari Tijerina RN [employer]. 03-20-2016 08:47-0400 Diastolic blood pressure 91 mm[Hg] Damari Tijerina RN [employer]. 03-20-2016 08:47-0400 Heart rate 71 /min Damari Tijerina RN [employer]. 03-20-2016 08:47-0400 Systolic blood pressure 158 mm[Hg] Damari Tijerina RN [employer]. 10-29-2015 14:59-0500 Body height 168.91 cm Charlene Capone PA-C Work Phone: [employer] 10-29-2015 14:59-0500 Body mass index (BMI) [Ratio] 33.7 kg/m2 Charlene Capone PA-C Work Phone: [employer] 10-29-2015 14:59-0500 Body surface area Derived from formula 2.06 m2 Charlene Capone PA-C Work Phone: [employer] 10-29-2015 14:59-0500 Body weight 96.16 kg Charlene Capone PA-C Work Phone: [employer] 10-29-2015 14:59-0500 Diastolic blood pressure 68 mm[Hg] Charlene Capone PA-C Work Phone: [employer] 10-29-2015 14:59-0500 Heart rate 74 /min Charlene Capone PA-C Work Phone: [employer]; [employer] 10-29-2015 14:59-0500 Systolic blood pressure 112 mm[Hg] Charlene Capone PA-C Work Phone: [employer] 10-09-2015 17:16-0500 Body height 168.91 cm Violet Dawn RN [employer]. 10-09-2015 17:16-0500 Body mass index (BMI) [Ratio] 34.34 kg/m2 Violet Dawn RN [employer]. 10-09-2015 17:16-0500 Body surface area Derived from formula 2.08 m2 Violet Dawn RN [employer]. 10-09-2015 17:16-0500 Body temperature 97.9 [degF] Violet Dawn RN [employer]. 10-09-2015 17:16-0500 Body weight 97.98 kg Violet Dawn RN [employer]. 10-09-2015 17:16-0500 Diastolic blood pressure 68 mm[Hg] Violet Dawn RN [employer]. 10-09-2015 17:16-0500 Heart rate 71 /min Violet Dawn RN [employer]. 10-09-2015 17:16-0500 Systolic blood pressure 117 mm[Hg] Violet Dawn RN [employer]. 08-07-2015 15:59-0400 Body height 168.91 cm Violet Dawn RN [employer]. 08-07-2015 15:59-0400 Body mass index (BMI) [Ratio] 34.34 kg/m2 Violet Dawn RN [employer]. 08-07-2015 15:59-0400 Body surface area Derived from formula 2.08 m2 Violet Dawn RN [employer]. 08-07-2015 15:59-0400 Body temperature 98 [degF] Violet Dawn RN [employer]. 08-07-2015 15:59-0400 Body weight 97.98 kg Violet Dawn RN [employer]. 08-07-2015 15:59-0400 Diastolic blood pressure 69 mm[Hg] Violet Dawn RN [employer]. 08-07-2015 15:59-0400 Heart rate 80 /min Violet Dawn RN [employer]. 08-07-2015 15:59-0400 Systolic blood pressure 136 mm[Hg] Violet Dawn RN [employer]. 07-23-2015 16:40-0400 Body height 168.91 cm Damari Tijerina RN [facility] [employer]. 07-23-2015 16:40-0400 Body mass index (BMI) [Ratio] 33.86 kg/m2 Damari Tijerina RN [facility].; [employer]. 07-23-2015 16:40-0400 Body surface area Derived from formula 2.07 m2 Damari iTjerina RN [employer]. 07-23-2015 16:40-0400 Body temperature 98.7 [degF] Damari Tijerina RN [employer]. 07-23-2015 16:40-0400 Body weight 96.62 kg Damari Tijerina RN [employer]. 07-23-2015 16:40-0400 Diastolic blood pressure 81 mm[Hg] Damari Tijerina RN [employer]. 07-23-2015 16:40-0400 Heart rate 85 /min Damari Tijerina RN [employer]. 07-23-2015 16:40-0400 Systolic blood pressure 123 mm[Hg] Damari Tijerina RN [employer]. 07-08-2015 13:08-0400 Body height 152.4 cm Violet Dawn RN [employer]. 07-08-2015 13:08-0400 Body mass index (BMI) [Ratio] 42.57 kg/m2 Violet Dawn RN [employer]. 07-08-2015 13:08-0400 Body surface area Derived from formula 1.94 m2 Violet Dawn RN [employer]. 07-08-2015 13:08-0400 Body temperature 97.6 [degF] Violet Dawn RN [employer]. 07-08-2015 13:08-0400 Body weight 98.88 kg Violet Dawn RN [facility] [employer]. 07-08-2015 13:08-0400 Diastolic blood pressure 92 mm[Hg] Violet Dawn RN [facility] [facility].; [employer]. 07-08-2015 13:08-0400 Heart rate 78 /min Violet Dawn RN [facility] [employer] 07-08-2015 13:08-0400 Systolic blood pressure 143 mm[Hg] Violet Dawn RN [place] [employer]. 07-03-2015 17:21-0400 Body height 152.4 cm Violet Dawn RN [place]. 07-03-2015 17:21-0400 Body mass index (BMI) [Ratio] 43.16 kg/m2 Violet Dawn RN [facility].; [employer] 07-03-2015 17:21-0400 Body surface area Derived from formula 1.95 m2 Violet Dawn RN [employer]. 07-03-2015 17:21-0400 Body temperature 98 [degF] Violet Dawn RN [place] [employer]. 07-03-2015 17:21-0400 Body weight 100.25 kg Violet Dawn RN [place]. 07-03-2015 17:21-0400 Diastolic blood pressure 81 mm[Hg] Violet Dawn RN [place] [employer]. 07-03-2015 17:21-0400 Heart rate 74 /min Violet Dawn RN [employer]. 07-03-2015 17:21-0400 Systolic blood pressure 124 mm[Hg] Violet Dawn RN [employer]. 06-28-2015 16:05-0400 Body height 167.64 cm Damari Tijerina RN [facility].; [employer]. 06-28-2015 16:05-0400 Body mass index (BMI) [Ratio] 35.51 kg/m2 Damari Tijerina RN [facility].; [employer]. 06-28-2015 16:05-0400 Body surface area Derived from formula 2.08 m2 Damari Tijerina RN [facility].; [employer]. 06-28-2015 16:05-0400 Body temperature 98.3 [degF] Damari Tijerina RN [facility].; [employer]. 06-28-2015 16:05-0400 Body weight 99.79 kg Damari Tijerina RN [facility].; [employer]. 06-28-2015 16:05-0400 Diastolic blood pressure 77 mm[Hg] Damari Tijerina RN [facility].; [employer]. 06-28-2015 16:05-0400 Heart rate 87 /min Damari Tijerina RN [facility].; [employer]. 06-28-2015 16:05-0400 Inhaled oxygen concentration 20 % Damari Tijerina RN [facility].; [employer]. 06-28-2015 16:05-0400 Inhaled oxygen concentration 21 % Damari Tijerina RN [facility].; [employer]. 06-28-2015 16:05-0400 SaO2% (BldA) [Mass fraction] 98 % Damari Tijerina RN [employer]. 06-28-2015 16:05-0400 Systolic blood pressure 145 mm[Hg] Damari Tijerina RN [employer]. 05-14-2015 14:47-0400 Body height 167.64 cm Naa Valladares LPN [facility].; [employer]. 05-14-2015 14:47-0400 Body mass index (BMI) [Ratio] 35.51 kg/m2 Naa Wemarizol ZABALA [facility], [facility].; [employer] 05-14-2015 14:47-0400 Body surface area Derived from formula 2.08 m2 Naa Wemarizol ZABALA [facility], [facility].; [employer] 05-14-2015 14:47-0400 Body weight 99.79 kg Naa Wemarizol ZABALA [facility], Inc.; [employer] 05-14-2015 14:47-0400 Diastolic blood pressure 81 mm[Hg] Naa Wemarizol ZABALA [facility] [facility].; [employer] 05-14-2015 14:47-0400 Heart rate 77 /min Naa Borismarizol ZABALA [facility], Inc.; [employer] 05-14-2015 14:47-0400 Systolic blood pressure 131 mm[Hg] Naa Wemarizol ZABALA [facility] [facility] Inc.; [employer] 02-27-2015 17:06-0400 Body height 167.64 cm Violet Dawn RN [facility] [facility].; [employer] 02-27-2015 17:06-0400 Body mass index (BMI) [Ratio] 35.51 kg/m2 Violet Dawn RN [facility], [facility].; [employer] 02-27-2015 17:06-0400 Body surface area Derived from formula 2.08 m2 Violet Dawn RN [facility] [facility].; [employer] 02-27-2015 17:06-0400 Body temperature 97.7 [degF] Violet Dawn RN [facility].; [employer] 02-27-2015 17:06-0400 Body weight 99.79 kg Violet Dawn RN [employer] [facility].; [employer] 02-27-2015 17:06-0400 Diastolic blood pressure 77 mm[Hg] Violet Dawn RN [place].; [employer] 02-27-2015 17:06-0400 Heart rate 77 /min Violet Dawn RN [facility] [facility].; [employer]. 02-27-2015 17:06-0400 Systolic blood pressure 140 mm[Hg] Violet Dawn RN [facility] [facility].; [employer] 01-31-2015 16:00-0400 Body height 167.64 cm Violet Dawn RN [facility] [facility].; [employer] 01-31-2015 16:00-0400 Body mass index (BMI) [Ratio] 35.02 kg/m2 Violet Dawn RN [facility] [facility].; [employer] 01-31-2015 16:00-0400 Body surface area Derived from formula 2.07 m2 Violet Dawn RN [facility].; [employer]. 01-31-2015 16:00-0400 Body temperature 97.8 [degF] Violet Dawn RN [facility].; [employer]. 01-31-2015 16:00-0400 Body weight 98.43 kg Violet Dawn RN [facility].; [employer]. 01-31-2015 16:00-0400 Diastolic blood pressure 90 mm[Hg] Violet Dawn RN [facility] [facility].; [employer] 01-31-2015 16:00-0400 Heart rate 80 /min Violet Dawn RN [facility] [employer]. 01-31-2015 16:00-0400 Systolic blood pressure 136 mm[Hg] Violet Dawn RN [employer] [employer] [facility].; [employer]. 01-16-2015 10:43-0400 Body height 167.64 cm Naa Valladares LPN [facility].; [employer] 01-16-2015 10:43-0400 Body mass index (BMI) [Ratio] 35.35 kg/m2 Naa Valladares LPN [employer] 01-16-2015 10:43-0400 Body surface area Derived from formula 2.08 m2 Naa Montejoerd ACCESS LEAD [facility], [facility].; [employer] [facility]. 01-16-2015 10:43-0400 Body temperature 98.4 [degF] Naa Wemarizol ZABALA [facility], Inc.; [employer] 01-16-2015 10:43-0400 Body weight 99.34 kg Naa Wemarizol [facility], Inc.; [employer]. 01-16-2015 10:43-0400 Diastolic blood pressure 86 mm[Hg] Naa Borismarizol ZABALA [facility], Inc.; [employer] 01-16-2015 10:43-0400 Heart rate 70 /min Naa Borismarizol ZABALA [facility], Inc.; [employer], [employer]. 01-16-2015 10:43-0400 Inhaled oxygen concentration 20 % Naa Borismarizol [facility], Inc.; [employer] 01-16-2015 10:43-0400 Inhaled oxygen concentration 21 % Naa [facility]ismarizol [facility], [facility].; [employer]. 01-16-2015 10:43-0400 SaO2% (BldA) [Mass fraction] 98 % Naa Wemarizol [facility], [facility].; [employer]. 01-16-2015 10:43-0400 Systolic blood pressure 154 mm[Hg] Naa Wemarizol ZABALA [facility], Inc.; [employer] 11-20-2014 09:36-0500 Body temperature 97.9 [degF] Neilee L Vess ACCESS LEAD [employer], [facility].; [employer]. 11-20-2014 09:36-0500 Body weight 97.98 kg Neilee L Vess ACCESS LEAD [employer], [facility].; [employer]. 11-20-2014 09:36-0500 Diastolic blood pressure 81 mm[Hg] [facility] L [facility]ess [facility], [place].; [employer] 11-20-2014 09:36-0500 Heart rate 76 /min Neilee L Vess ACCESS LEAD [employer] 11-20-2014 09:36-0500 Inhaled oxygen concentration 20 % Neilee L Vess ACCESS LEAD [employer] 11-20-2014 09:36-0500 Inhaled oxygen concentration 21 % Neilee L Vess ACCESS LEAD [employer]. 11-20-2014 09:36-0500 SaO2% (BldA) [Mass fraction] 99 % Neilee L Vess ACCESS LEAD [employer]. 11-20-2014 09:36-0500 Systolic blood pressure 135 mm[Hg] Neilee L Vess ACCESS LEAD [employer]. 11-15-2014 11:22-0500 Body height 167.64 cm Violet Dawn RN [employer]. 11-15-2014 11:22-0500 Body mass index (BMI) [Ratio] 34.06 kg/m2 Violet Dawn RN [employer]. 11-15-2014 11:22-0500 Body surface area Derived from formula 2.05 m2 Violet Dawn RN [employer]. 11-15-2014 11:22-0500 Body temperature 98 [degF] Violet Dawn RN [employer]. 11-15-2014 11:22-0500 Body weight 95.71 kg Violet Dawn RN [employer]. 11-15-2014 11:22-0500 Diastolic blood pressure 85 mm[Hg] Violet Dawn RN [employer]. 11-15-2014 11:22-0500 Heart rate 88 /min Violet Dawn RN [employer]. 11-15-2014 11:22-0500 Systolic blood pressure 126 mm[Hg] Violet Dawn RN [employer]. 09-26-2014 15:27-0500 Body height 167.64 cm Violet Dawn RN [employer]. 09-26-2014 15:27-0500 Body mass index (BMI) [Ratio] 35.11 kg/m2 Violet Dawn RN [employer]. 09-26-2014 15:27-0500 Body surface area Derived from formula 2.07 m2 Violet Dawn RN [employer]. 09-26-2014 15:27-0500 Body temperature 97.5 [degF] Violet Dawn RN [employer]. 09-26-2014 15:27-0500 Body weight 98.66 kg Violet Dawn RN [employer]. 09-26-2014 15:27-0500 Diastolic blood pressure 78 mm[Hg] Violet Dawn RN [employer]. 09-26-2014 15:27-0500 Heart rate 78 /min Violet Dawn RN [employer]. 09-26-2014 15:27-0500 Systolic blood pressure 132 mm[Hg] Violet Dawn RN [employer]. 08-27-2014 15:0400 Body height 167.64 cm Violet Dawn RN [employer]. 08-27-2014 15:-0400 Body mass index (BMI) [Ratio] 34.94 kg/m2 Violet Dawn RN [employer]. 08-27-2014 15:0400 Body surface area Derived from formula 2.07 m2 Violet Dawn RN [employer]. 08-27-2014 15:0400 Body weight 98.2 kg Violet Dawn RN [employer]. 08-27-2014 15:01-0400 Diastolic blood pressure 93 mm[Hg] Violet Dawn RN [facility] [employer]. 08-27-2014 15:01-0400 Heart rate 76 /min Violet Dawn RN [facility] [facility].; [employer] 08-27-2014 15:01-0400 Systolic blood pressure 146 mm[Hg] Violet Dawn RN [facility] [employer]. 05-24-2014 14:34-0400 Body height 167.64 cm Violet Dawn RN [employer]. 05-24-2014 14:34-0400 Body mass index (BMI) [Ratio] 35.15 kg/m2 Violet Dawn RN [facility].; [employer]. 05-24-2014 14:34-0400 Body surface area Derived from formula 2.07 m2 Violet Dawn RN [facility].; [employer]. 05-24-2014 14:34-0400 Body weight 98.79 kg Violet Dawn RN [employer]. 05-24-2014 14:34-0400 Diastolic blood pressure 90 mm[Hg] Violet Dawn RN [employer]. 05-24-2014 14:34-0400 Heart rate 78 /min Violet Dawn RN [employer]. 05-24-2014 14:34-0400 Systolic blood pressure 132 mm[Hg] Violet Dawn RN [employer]. 04-24-2014 08:37-0400 Body temperature 96.7 [degF] Neilee L Vess ACCESS LEAD [employer]. 04-24-2014 08:37-0400 Body weight 98.88 kg Neilee L Vess ACCESS LEAD [employer]. 04-24-2014 08:37-0400 Diastolic blood pressure 85 mm[Hg] Neilee L Vess ACCESS LEAD [facility].; [employer] [facility]. 04-24-2014 08:37-0400 Heart rate 76 /min Tex Yvette Wan LPN [facility], [facility].; [employer] [facility]. 04-24-2014 08:37-0400 Systolic blood pressure 143 mm[Hg] Gogoarlyn Wan LP[facility].; [employer] 03-16-2014 09:02-0400 Body height 168.91 cm Yolanda Juan Miguel Javed ACCESS LEAD [facility] [facility].; [employer]. 03-16-2014 09:02-0400 Body mass index (BMI) [Ratio] 33.86 kg/m2 Yolanda Juan Miguel Javed [facility].; [employer] 03-16-2014 09:02-0400 Body surface area Derived from formula 2.07 m2 Yolanda Juan Miguel [facility]aved [facility].; [employer] 03-16-2014 09:02-0400 Body temperature 99.2 [degF] Yolanda Juan Miguel Javed ACCESS LEAD [facility] [facility].; [employer]. 03-16-2014 09:02-0400 Body weight 96.62 kg Yolanda M Tegan ACCESS LEAD [facility].; [employer]. 03-16-2014 09:02-0400 Diastolic blood pressure 89 mm[Hg] Yolanda Javed LPN [facility].; [employer] [facility]. 03-16-2014 09:02-0400 Heart rate 91 /min Yolanda Javed ACCESS LEAD [facility] [facility].; [employer]. 03-16-2014 09:02-0400 Systolic blood pressure 136 mm[Hg] Yolanda Juan Miguel Javed LPN [facility] [facility].; [employer] 02-28-2014 17:13-0400 Body height 168.91 cm Violet Dawn RN [place] [facility].; [employer] 02-28-2014 17:13-0400 Body mass index (BMI) [Ratio] 34.34 kg/m2 Violet Dawn RN [facility].; [employer]. 02-28-2014 17:13-0400 Body surface area Derived from formula 2.08 m2 Violet Dawn RN [employer].; [employer]. 02-28-2014 17:13-0400 Body temperature 98 [degF] Violet Dawn RN [facility] [employer]. 02-28-2014 17:13-0400 Body weight 97.98 kg Violet Dawn RN [employer]. 02-28-2014 17:13-0400 Diastolic blood pressure 90 mm[Hg] Violet Dawn RN [employer]. 02-28-2014 17:13-0400 Heart rate 89 /min Violet Dawn RN [employer]. 02-28-2014 17:13-0400 Systolic blood pressure 147 mm[Hg] Violet Dawn RN [employer]. 08-30-2013 16:51-0400 Body height 168.91 cm Violet Dawn RN [employer]. 08-30-2013 16:51-0400 Body mass index (BMI) [Ratio] 33.96 kg/m2 Violet Dawn RN [employer]. 08-30-2013 16:51-0400 Body surface area Derived from formula 2.07 m2 Violet Dawn RN [employer]. 08-30-2013 16:51-0400 Body temperature 98.3 [degF] Violet Dawn RN [employer]. 08-30-2013 16:51-0400 Body weight 96.89 kg Violet Dawn RN [employer]. 08-30-2013 16:51-0400 Diastolic blood pressure 86 mm[Hg] Violet Dawn RN [employer]. 08-30-2013 16:51-0400 Heart rate 80 /min Violet Dawn RN [place] [facility].; [employer]. 08-30-2013 16:51-0400 Systolic blood pressure 134 mm[Hg] Violet Dawn RN [facility].; [employer] 06-07-2013 15:39-0400 Body height 168.91 cm Violet Dawn RN [place] [facility].; [employer] 06-07-2013 15:39-0400 Body mass index (BMI) [Ratio] 33.78 kg/m2 Violet Dawn RN [facility] [facility].; [employer]. 06-07-2013 15:39-0400 Body surface area Derived from formula 2.06 m2 Violet Dawn RN [facility] [facility].; [employer] 06-07-2013 15:39-0400 Body temperature 97.9 [degF] Violet Dawn RN [facility] [facility].; [employer]. 06-07-2013 15:39-0400 Body weight 96.39 kg Violet Dawn RN [facility].; [employer]. 06-07-2013 15:39-0400 Diastolic blood pressure 82 mm[Hg] Violet Dawn RN [place] [facility].; [employer]. 06-07-2013 15:39-0400 Heart rate 74 /min Violet Dawn RN [facility] [facility].; [employer]. 06-07-2013 15:39-0400 Systolic blood pressure 136 mm[Hg] Violet Dawn RN [place].; [employer]. 04-26-2013 16:53-0400 Body height 168.91 cm Violet Dawn RN [employer] 04-26-2013 16:53-0400 Body mass index (BMI) [Ratio] 35.06 kg/m2 Violet Dawn RN [employer].; [employer]. 04-26-2013 16:53-0400 Body surface area Derived from formula 2.1 m2 Violet Dawn RN [employer]. 04-26-2013 16:53-0400 Body temperature 97.6 [degF] Violet Dawn RN [employer].; [employer]. 04-26-2013 16:53-0400 Body weight 100.02 kg Violet Dawn RN [employer]. 04-26-2013 16:53-0400 Diastolic blood pressure 81 mm[Hg] Violet Dawn RN [employer]. 04-26-2013 16:53-0400 Heart rate 76 /min Violet Dawn RN [employer]. 04-26-2013 16:53-0400 Systolic blood pressure 137 mm[Hg] Violet Dawn RN [employer]. 01-25-2013 17:17-0400 Body height 168.91 cm Violet Dawn RN [employer]. 01-25-2013 17:17-0400 Body mass index (BMI) [Ratio] 35.2 kg/m2 Violet Dawn RN [employer]. 01-25-2013 17:17-0400 Body surface area Derived from formula 2.1 m2 Violet Dawn RN [employer]. 01-25-2013 17:17-0400 Body temperature 97.7 [degF] Violet Dawn RN [employer]. 01-25-2013 17:17-0400 Body weight 100.43 kg Violet Dawn RN [employer]. 01-25-2013 17:17-0400 Diastolic blood pressure 70 mm[Hg] Violet Dawn RN [employer]. 01-25-2013 17:17-0400 Heart rate 76 /min Violet Dawn RN [employer]. 01-25-2013 17:17-0400 Systolic blood pressure 131 mm[Hg] Violet Dawn RN [employer]. 11-21-2012 13:29-0500 Body height 168.91 cm Violet Dawn RN [employer]. 11-21-2012 13:29-0500 Body mass index (BMI) [Ratio] 34.5 kg/m2 Violet Dawn RN [employer]. 11-21-2012 13:29-0500 Body surface area Derived from formula 2.08 m2 Violet Dawn RN [employer]. 11-21-2012 13:29-0500 Body temperature 97.4 [degF] Violet Dawn RN [employer]. 11-21-2012 13:29-0500 Body weight 98.43 kg Violet Dawn RN [employer]. 11-21-2012 13:29-0500 Diastolic blood pressure 83 mm[Hg] Violet Dawn RN [employer]. 11-21-2012 13:29-0500 Heart rate 84 /min Violet Dawn RN [employer]. 11-21-2012 13:29-0500 Systolic blood pressure 120 mm[Hg] Violet Dawn RN [employer]. 10-26-2012 14:56-0500 Body height 168.91 cm Violet Dawn RN [employer]. 10-26-2012 14:56-0500 Body mass index (BMI) [Ratio] 35.61 kg/m2 Violet Dawn RN [employer]. 10-26-2012 14:56-0500 Body surface area Derived from formula 2.11 m2 Violet Dawn RN [employer]. 10-26-2012 14:56-0500 Body weight 101.61 kg Violet Dawn RN [facility] [employer]. 10-26-2012 14:56-0500 Diastolic blood pressure 76 mm[Hg] Violet Dawn RN [facility] [employer] [facility] [employer]. 10-26-2012 14:56-0500 Heart rate 76 /min Violet Dawn RN [facility] [facility] [employer] [facility] [employer] 10-26-2012 14:56-0500 Systolic blood pressure 126 mm[Hg] Violet Dawn RN [employer]. 10-19-2012 16:52-0500 Body height 168.91 cm Violet Dawn RN [employer]. 10-19-2012 16:52-0500 Body mass index (BMI) [Ratio] 36.06 kg/m2 Violet Dawn RN [facility] [employer] 10-19-2012 16:52-0500 Body surface area Derived from formula 2.12 m2 Violet Dawn RN [employer]. 10-19-2012 16:52-0500 Body temperature 97.7 [degF] Violet Dawn RN [employer]. 10-19-2012 16:52-0500 Body weight 102.88 kg Violet Dawn RN [employer]. 10-19-2012 16:52-0500 Diastolic blood pressure 71 mm[Hg] Violet Dawn RN [employer]. 10-19-2012 16:52-0500 Heart rate 77 /min Violet Dawn RN [employer]. 10-19-2012 16:52-0500 Systolic blood pressure 124 mm[Hg] Violet Dawn RN [employer]. 09-08-2012 15:24-0400 Body height 168.91 cm Violet Dawn RN [employer]. 09-08-2012 15:24-0400 Body mass index (BMI) [Ratio] 36.92 kg/m2 Violet Dawn RN [facility] [facility] [employer] [facility] [employer] 09-08-2012 15:24-0400 Body surface area Derived from formula 2.14 m2 Violet Dawn RN [facility] [employer] 09-08-2012 15:24-0400 Body temperature 97.6 [degF] Violet Dawn RN [facility] [facility] [employer] 09-08-2012 15:24-0400 Body weight 105.33 kg Violet Dawn RN [facility] [employer] 09-08-2012 15:24-0400 Diastolic blood pressure 88 mm[Hg] Violet Dawn RN [facility] [employer] 09-08-2012 15:24-0400 Heart rate 80 /min Violet Dawn RN [facility] [facility] [employer] [facility] [employer]. 09-08-2012 15:24-0400 Systolic blood pressure 149 mm[Hg] Violet Dawn RN [facility] [employer]. 05-27-2012 13:36-0400 Body height 168.91 cm Pam Dykes RN Work Phone: [employer]. 05-27-2012 13:36-0400 Body mass index (BMI) [Ratio] 35.29 kg/m2 Pam Dykes RN Work Phone: [employer]. 05-27-2012 13:36-0400 Body surface area Derived from formula 2.1 m2 Pam Dykes RN Work Phone: [employer]. 05-27-2012 13:36-0400 Body weight 100.7 kg Pam Dykes RN Work Phone: [employer]. 05-27-2012 13:36-0400 Diastolic blood pressure 80 mm[Hg] Pam Dykes RN Work Phone: [employer]. 05-27-2012 13:36-0400 Heart rate 88 /min Pam Dykes RN Work Phone: [employer]. 05-27-2012 13:36-0400 Systolic blood pressure 118 mm[Hg] Pam Dykes RN Work Phone: [employer]. 03-30-2012 13:12-0400 Body height 168.91 cm Violet Dawn RN [employer]. 03-30-2012 13:12-0400 Body mass index (BMI) [Ratio] 35.01 kg/m2 Violet Dawn RN [employer]. 03-30-2012 13:12-0400 Body surface area Derived from formula 2.1 m2 Violet Dawn RN [employer]. 03-30-2012 13:12-0400 Body temperature 97.9 [degF] Violet Dawn RN [employer]. 03-30-2012 13:12-0400 Body weight 99.88 kg Violet Dawn RN [employer]. 03-30-2012 13:12-0400 Diastolic blood pressure 78 mm[Hg] Violet Dawn RN [employer]. 03-30-2012 13:12-0400 Heart rate 90 /min Violet Dawn RN [employer]. 03-30-2012 13:12-0400 Systolic blood pressure 132 mm[Hg] Violet Dawn RN [employer]. 12-30-2011 16:52-0500 Body height 170.18 cm Violet Dawn RN [employer]. 12-30-2011 16:52-0500 Body mass index (BMI) [Ratio] 33.39 kg/m2 Violet Dawn RN [employer]. 12-30-2011 16:52-0500 Body surface area Derived from formula 2.08 m2 Violet Dawn RN [employer]. 12-30-2011 16:52-0500 Body temperature 97 [degF] Violet Dawn RN [employer]. 12-30-2011 16:52-0500 Body weight 96.71 kg Violet Dawn RN [employer]. 12-30-2011 16:52-0500 Diastolic blood pressure 72 mm[Hg] Violet Dawn RN [employer]. 12-30-2011 16:52-0500 Heart rate 79 /min Violet Dawn RN [employer]. 12-30-2011 16:52-0500 Systolic blood pressure 118 mm[Hg] Violet Dawn RN [employer]. 12-22-2011 13:52-0500 Body height 170.18 cm Pam Dykes RN Work Phone: [employer] 12-22-2011 13:52-0500 Body mass index (BMI) [Ratio] 33.05 kg/m2 Pam Dykes RN Work Phone: [employer]. 12-22-2011 13:52-0500 Body surface area Derived from formula 2.07 m2 Pam Dykes RN Work Phone: [employer] 12-22-2011 13:52-0500 Body weight 95.71 kg Pam Dykes RN Work Phone: [employer]. 12-22-2011 13:52-0500 Diastolic blood pressure 78 mm[Hg] Pam Dykes RN Work Phone: [employer]. 12-22-2011 13:52-0500 Heart rate 90 /min Pam Dykes RN Work Phone: [employer]. 12-22-2011 13:52-0500 Systolic blood pressure 123 mm[Hg] Pam Dykes RN Work Phone: [employer]. 11-19-2011 10:22-0500 Body height 170.18 cm Violet Dawn RN [employer]. 11-19-2011 10:22-0500 Body mass index (BMI) [Ratio] 32.86 kg/m2 Violet Dawn RN [employer]. 11-19-2011 10:22-0500 Body surface area Derived from formula 2.06 m2 Violet Dawn RN [employer]. 11-19-2011 10:22-0500 Body temperature 97.8 [degF] Violet Dawn RN [employer]. 11-19-2011 10:22-0500 Body weight 95.17 kg Violet Dawn RN [employer]. 11-19-2011 10:22-0500 Diastolic blood pressure 85 mm[Hg] Violet Dawn RN [employer]. 11-19-2011 10:22-0500 Heart rate 80 /min Violet Dawn RN [employer]. 11-19-2011 10:22-0500 Systolic blood pressure 137 mm[Hg] Violet Dawn RN [employer]. 10-05-2011 10:04-0500 Body height 170.18 cm Violet Dawn RN [employer]. 10-05-2011 10:04-0500 Body mass index (BMI) [Ratio] 33.33 kg/m2 Violet Dawn RN [facility] [employer] 10-05-2011 10:04-0500 Body surface area Derived from formula 2.08 m2 Violet Dawn RN [facility].; [employer] 10-05-2011 10:04-0500 Body temperature 97.6 [degF] Violet Dawn RN [employer] 10-05-2011 10:04-0500 Body weight 96.53 kg Violet Dawn RN [facility] [facility] [employer] [facility] [employer] 10-05-2011 10:04-0500 Diastolic blood pressure 79 mm[Hg] Violet Dawn RN [place] [employer] [facility].; [employer] 10-05-2011 10:04-0500 Heart rate 93 /min Violet Dawn RN [facility] [facility] [employer] [facility] [employer]. 10-05-2011 10:04-0500 Systolic blood pressure 137 mm[Hg] Violet Dawn RN [employer] 08-27-2011 15:03-0400 Body height 170.18 cm [employer] PA-C Work Phone: [employer] 08-27-2011 15:03-0400 Body mass index (BMI) [Ratio] 34.97 kg/m2 [employer] PA-C Work Phone: [employer] 08-27-2011 15:03-0400 Body surface area Derived from formula 2.12 m2 [employer] PA-C Work Phone: [employer]. 08-27-2011 15:03-0400 Body temperature 97.8 [degF] [employer] PA-C Work Phone: [employer]. 08-27-2011 15:03-0400 Body weight 101.27 kg [employer] PATraxianC Work Phone: [employer]. 08-27-2011 15:03-0400 Diastolic blood pressure 69 mm[Hg] [employer] PA-C Work Phone: [employer]. 08-27-2011 15:03-0400 Heart rate 92 /min [employer] PA-C Work Phone: [employer] 08-27-2011 15:03-0400 Systolic blood pressure 141 mm[Hg] [employer] PA-C Work Phone: [employer] 08-12-2011 17:04-0400 Body height 170.18 cm Violet Dawn RN [employer]. 08-12-2011 17:04-0400 Body mass index (BMI) [Ratio] 35.77 kg/m2 Violet Dawn RN [employer]. 08-12-2011 17:04-0400 Body surface area Derived from formula 2.14 m2 Violet Dawn RN [employer]. 08-12-2011 17:04-0400 Body temperature 97 [degF] Violet Dawn RN [employer]. 08-12-2011 17:04-0400 Body weight 103.6 kg Violet Dawn RN [employer]. 08-12-2011 17:04-0400 Diastolic blood pressure 73 mm[Hg] Violet Dawn RN [employer]. 08-12-2011 17:04-0400 Heart rate 95 /min Violet Dawn RN [employer]. 08-12-2011 17:04-0400 Systolic blood pressure 124 mm[Hg] Violet Dawn RN [employer] [facility] [employer] [facility] [employer]. 02-19-2011 10:10-0400 Body height 170.18 cm Violet Dawn RN [place] [facility] [employer] [facility].; [employer] 02-19-2011 10:10-0400 Body mass index (BMI) [Ratio] 34.64 kg/m2 Violet Dawn RN [facility] [employer] 02-19-2011 10:10-0400 Body surface area Derived from formula 2.11 m2 Violet Dawn RN [facility] [employer] 02-19-2011 10:10-0400 Body temperature 97.9 [degF] Violet Dawn RN [employer] 02-19-2011 10:10-0400 Body weight 100.34 kg Violet Dawn RN [employer]. 02-19-2011 10:10-0400 Diastolic blood pressure 86 mm[Hg] Violet Dawn RN [employer] [employer] [facility] [employer]. 02-19-2011 10:10-0400 Heart rate 94 /min Violet Dawn RN [employer] [facility].; [employer] 02-19-2011 10:10-0400 Systolic blood pressure 139 mm[Hg] Violet Dawn RN [employer]. 01-22-2011 17:00-0400 Body height 170.18 cm [facility] Work Phone: [employer] Work Phone: 01-22-2011 17:00-0400 Body mass index (BMI) [Ratio] 33.83 kg/m2 [facility] Work Phone: [employer]. Work Phone: 01-22-2011 17:00-0400 Body surface area Derived from formula 2.09 m2 [facility] Work Phone: [employer] Work Phone: 01-22-2011 17:00-0400 Body temperature 96.6 [degF] [facility] Work Phone: [employer] Work Phone: 01-22-2011 17:00-0400 Body weight 97.98 kg [facility] Work Phone: [employer] Work Phone: 01-22-2011 17:00-0400 Diastolic blood pressure 89 mm[Hg] [facility] Work Phone: [employer] Work Phone: 01-22-2011 17:00-0400 Heart rate 103 /min [facility] Work Phone: [employer] Work Phone: 01-22-2011 17:00-0400 Systolic blood pressure 131 mm[Hg] [facility] Work Phone: [employer] Work Phone: 09-01-2010 14:58-0400 Body temperature 98.1 [degF] Violet Dawn RN [employer] 09-01-2010 14:58-0400 Body weight 99.61 kg Violet Dawn RN [employer] 09-01-2010 14:58-0400 Diastolic blood pressure 73 mm[Hg] Violet Dawn RN [employer] 09-01-2010 14:58-0400 Heart rate 87 /min Violet Dawn RN [facility], [facility] 09-01-2010 [id number] Systolic blood pressure 119 mm[Hg] Violet Dawn RN [facility], [facility].; [facility] En[facility]ters Encounter Date Encounter Type Care Provider Facility Start: 08-15-2025 ambulatory CHARLENE CAPONE Facility:[facility] Start: 08-14-2025 ambulatory Health Risk Assessment Facility:[facility] Start: 08-10-2025 End: 08-10-2025 ambulatory Maria Teresa Pimentel PA Facility:[facility] Start: 07-10-2025 End: 07-10-2025 ambulatory Charlene Capone PA Work Phone: -Ultrasound [facility] Start: 07-10-2025 End: 07-10-2025 Patient encounter procedure Charlene Capone PA -Ultrasound [facility] Work Phone: Start: 07-10-2025 End: 07-10-2025 ambulatory Charlene Capone Facility:[facility] Start: 06-25-2025 End: 06-25-2025 Charlene Capone PA-C Work Phone: [facility], [facility] Start: 06-23-2025 End: 06-23-2025 ambulatory Charlene Capone PA Work Phone: -Laboratory Start: 06-23-2025 End: 06-23-2025 Patient encounter procedure Maria Teresa Pimentel PA -Laboratory Work Phone: Start: 06-23-2025 End: 06-23-2025 ambulatory Maria Teresa Pimentel PA Facility:[facility] Start: 05-05-2025 End: 05-05-2025 ambulatory Charlene Capone PA Work Phone: -Laboratory Start: 05-05-2025 End: 05-05-2025 Patient encounter procedure Maria Teresa Pimentel PA -Laboratory Work Phone: Start: 05-05-2025 End: 05-05-2025 ambulatory Maria Teresa Pimentel PA Facility:[facility] Start: 03-07-2025 End: 03-07-2025 Patient encounter procedure Raissa Griffith APRN.TECHNICAL RECRUITER Work Phone: [facility] Comment on above: Acute pain of left s maria t (Primary Dx) Start: 03-07-2025 End: 03-07-2025 ambulatory [facility] Facility:[facility] Start: 02-23-2025 End: 02-23-2025 Patient encounter status Dania Michel MA [facility]; [facility] Start: 02-23-2025 End: 02-23-2025 Periodic preventive med est patient 40-64yrs Charlene Capone PA-C Work Phone: [facility] Start: 02-15-2025 End: 02-15-2025 Charlene Capone PA-C Work Phone: [facility] Start: 02-12-2025 End: 02-12-2025 Charlene Capone PA-C Work Phone: [facility] Start: 02-09-2025 End: 02-09-2025 ambulatory Charlene Capone PA Work Phone: [facility] Work Phone: Start: 02-09-2025 End: 02-09-[address] River Dai DO -Laboratory Work Phone: Start: 02-09-2025 End: 02-09-2025 ambulatory River Mncaroline Facility:[facility] Start: 12-27-2024 End: 12-27-2024 Office outpatient visit 15 minutes Charlene Capone PA-C Work Phone: [facility] Start: 12-26-2024 End: 12-26-2024 Telephone encounter Rupali Sage APRN.CNP Work Phone: OB/Gynecology Start: 10-31-2024 End: 10-31-[address] River Dai DO -Laboratory Work Phone: Start: 10-31-2024 End: 10-31-2024 [facility] Start: 10-30-2024 End: 10-30-2024 Charlene SANDHU-C Work Phone: xaitment [facility] [employer] Start: 09-11-2024 End: 09-11-2024 Office outpatient new 45 minutes [facility] Johnathan Work Phone: [facility] Comment on above: Left shoulder pain, unspecified chronicity (Primary Dx) Start: 09-11-2024 End: 09-11-2024 Subsequent hospital visit by physician Alondra Little MD Work Phone: Imaging [facility] Comment on above: Arrived Start: 09-11-2024 ambulatory ALONDRA Varma ity:[facility] Start: 08-25-2024 End: 08-25-2024 Office outpatient visit 25 minutes Charlene Capone PA-C Work Phone: [employer] Start: 08-25-2024 Charlene Graham A-C Work Phone: [employer] Start: 07-11-2024 End: 07-12-2024 Documentation procedure Mammography Coordinator [facility] Start: 07-11-2024 End: 07-12-2024 Letter encounter Mammography Coordinator [facility] Start: 07-11-2024 End: 07-11-2024 Patient encounter procedure Rupali Sage APRN.TECHNICAL RECRUITER Work Phone: OB/Gynecology Comment on above: Encounter for gyneco logical examination (general) (routine) without abnormal findings (Primary Dx); Encounter for screening mammogram for breast cancer Start: 07-11-2024 End: 07-11-2024 Patient encounter status Rupali Sage APRN.TECHNICAL RECRUITER Work Phone: [facility] Start: 07-11-2024 End: 07-11-2024 Subsequent hospital visit by physician Screen Mammo [facility] Comment on above: Encounter for screen ing mammogram for malignant neoplasm of breast [Z12.31] Start: 02-18-2024 End: 02-18-2024 Periodic preventive med est patient 40-64yrs Charlene JOEC Work Phone: [facility] Start: 02-18-2024 End: 02-18-2024 Medical examinations/reports status Dania Michel MA [facility] Start: 02-18-2024 Charlene Nazario Work Phone: [facility] Start: 02-07-2024 End: 02-07-2024 ambulatory [facility] Work Phone: Start: 02-07-2024 End: 02-07-2024 Discharged Rec[facility]ring [facility]-Physical Therapy Work Phone: Start: 01-12-2024 Registered Rec[facility]ring [facility] Work Phone: Start: 01-10-2024 End: 01-10-2024 ambulatory [facility] Work Phone: Start: 01-10-2024 End: 01-10-2024 Patient encounter procedure [facility] Start: 11-12-2023 End: 11-12-2023 Admission to same day surgery center [facility] Start: 11-12-2023 End: 11-12-2023 [facility] Work Phone: Start: 10-19-2023 End: 10-19-2023 Office outpatient visit 15 minutes Charlene Capone PA-C Work Phone: [facility] Start: 10-19-2023 End: 10-19-2023 Preprocedural examination done Charlene Capone PA-C Work Phone: [facility]; [facility] Start: 10-09-2023 End: 10-09-2023 ambulatory [facility] Work Phone: Start: 10-09-2023 End: 10-09-2023 [facility] Start: 09-07-2023 End: 09-07-2023 ambulatory [facility] Work Phone: Start: 09-07-2023 End: 09-07-2023 Patient encounter procedure [facility]-MRI - [facility] Work Phone: Start: 08-06-2023 End: 08-09-2023 Office outpatient visit 25 minutes Charlene Capone PA-C Work Phone: [facility] Start: 07-10-2023 End: 07-10-2023 ambulatory [facility] Work Phone: Start: 07-10-2023 End: 07-10-2023 Patient encounter procedure [facility]-Laboratory Work Phone: Start: 05-18-2023 ambulatory Rupali MCKOY RN.TECHNICAL RECRUITER Work Phone: OB/Gynecology Comment on above: Pap test Start: 05-12-2023 Documentation procedure Mammog cristina Coordinator [facility] Start: 05-12-2023 Letter encounter Mammography Coordinator [facility] Start: 05-10-2023 End: 05-10-2023 Patient encounter procedure Rupali Sage APRN.TECHNICAL RECRUITER Work Phone: OB/Gynecology Comment on above: Encounter for gyneco logical examination with abnormal finding (Primary Dx); Vulvovaginal itching; Postmenopausal atrophic vaginitis; Encounter for screening for human papillomavirus (HPV); Pap smear for cervical cancer screening; Encounter for screening mammogram for breast cancer Start: 05-10-2023 End: 05-10-2023 Patient encounter status Rupali Sage APRN.CNP Work Phone: OB/Gynecology Start: 04-23-2023 Telephone encounter Rupali ignacio APRN.TECHNICAL RECRUITER Work Phone: OB/Gynecology Comment on above: Orders Start: 04-15-2023 End: 04-15-2023 ambulatory [facility] Work Phone: Start: 04-15-2023 End: 04-15-2023 Patient encounter procedure [facility]-Laboratory Start: 01-28-2023 End: 01-28-2023 Office outpatient visit 25 minutes Charlene Capone PA-C Work Phone: [employer] [facility] [place]. Start: 2023 End: 2023 Patient encounter procedure [facility] Start: 01-12-2023 End: 01-12-2023 ambulatory [facility] Work Phone: Start: 01-12-2023 End: 01-12-2023 Discharged Recurring [facility]-Physical Therapy Start: 10-09-2022 End: 10-09-2022 Admission to same day surgery center [facility] Start: 09-29-2022 End: 09-29-2022 ambulatory [facility] Work Phone: Start: 09-29-2022 End: 09-29-2022 Patient encounter procedure [facility] Start: 09-15-2022 End: 09-15-2022 ambulatory [facility] Work Phone: Start: 09-15-2022 End: 09-15-2022 Patient encounter procedure [facility]-Radiology, [facility] Start: 09-14-2022 End: 09-14-2022 ambulatory [facility] Work Phone: Start: 09-14-2022 End: 09-14-2022 Patient encounter procedure [facility]-Nuclear Medicine, [facility] Start: 08-22-2022 End: 08-22-2022 ambulatory [facility] Work Phone: Start: 08-22-2022 End: 08-22-2022 Patient encounter procedure [facility]-MRI - [facility] Start: 08-13-2022 End: 08-13-2022 ambulatory CHARLENE CAPONE [facility] Start: 08-13-2022 End: 08-13-2022 Patient encounter status Charlene Capone PA-C Work Phone: [facility] Start: 08-13-2022 End: 08-13-2022 Periodic preventive med est patient 40-64yrs Charlene Capone PA-C Work Phone: [employer]. Start: 07-25-2022 End: 07-25-2022 ambulatory MARIA TERESA PAC PIMENTEL [facility] Start: 07-19-2022 End: 07-19-2022 ambulatory CHARLENE PA-C [facility] Start: 07-04-2022 End: 07-04-2022 ambulatory CHARLENE PA-C [facility] Start: 04-03-2022 End: 04-03-2022 ambulatory CHARLENE PA-C [facility] Start: 01-28-2022 End: 01-28-2022 Office outpatient visit 15 minutes Charlene Capone PA-C Work Phone: [employer]. Start: 01-10-2022 End: 01-10-2022 ambulatory CHARLENE PA-C [facility] Start: 12-02-2021 End: 12-02-2021 Office outpatient visit 25 minutes Charlene Capone PA-C Work Phone: [employer] Start: 09-20-2021 End: 09-20-2021 ambulatory DARRELL BALLESTEROS [facility] Start: 07-17-2021 End: 07-17-2021 Patient encounter status Charlene Capone PA-C Work Phone: [employer] Start: 07-17-2021 End: 07-17-2021 Periodic preventive med est patient 40-64yrs Charlene Capone PA-C Work Phone: [employer]. Start: 06-25-2021 End: 06-25-2021 Charlene Capone PA-C Work Phone: [employer]. Start: 04-15-2021 End: 04-15-2021 Office outpatient visit 15 minutes Charlene Capone PA-C Work Phone: [employer] Start: 03-24-2021 End: 03-24-2021 Office outpatient visit 15 minutes Charlene Capone PA-C Work Phone: [employer] Start: 2021 End: 2021 Office outpatient visit 25 minutes Charlene Capone PA-C Work Phone: [employer] Start: 12-17-2020 End: 12-17-2020 Office outpatient visit 40 minutes Charlene Capone PA-C Work Phone: [employer]. Start: 09-18-2020 End: 09-18-2020 Office outpatient visit 15 minutes Charlene Capone PA-C Work Phone: [employer]. Start: 09-12-2020 End: 09-12-2020 Charlene Capone PA-C Work Phone: [employer] Start: 09-12-2020 End: 09-12-2020 Medical examinations/reports status Valerie Snow LPN [employer]. Start: 09-12-2020 End: 09-12-2020 Charlene Capone PA-C Work Phone: [employer]. Start: 06-12-2020 End: 06-12-2020 Charlene Capone PA-C Work Phone: [employer] Start: 03-12-2020 End: 03-12-2020 Office outpatient visit 25 minutes Charlene Capone PA-C Work Phone: [employer]. Start: 12-13-2019 End: 12-13-2019 Office outpatient visit 25 minutes Charlene Capone PA-C Work Phone: [employer] Start: 10-30-2019 End: 11-06-2019 Charlene Capone PA-C Work Phone: [employer] Start: 09-06-2019 End: 09-07-2019 Patient encounter status Charlene Capone PA-C Work Phone: [employer]; [employer]. Start: 09-06-2019 End: 09-07-2019 Charlene Capone PA-C Work Phone: [employer]. Start: 06-16-2019 End: 06-17-2019 Charlene Capone PA-C Work Phone: [employer]. Start: 06-06-2019 End: 06-06-2019 Office outpatient visit 25 minutes Charlene Capone PA-C Work Phone: [employer]. Start: 05-09-2019 End: 05-09-2019 Charlene Capone PA-C Work Phone: [employer]. Start: 04-05-2019 End: 04-05-2019 Charlene Capone PA-C Work Phone: [employer] Start: 03-29-2019 End: 03-29-2019 Charlene Capone PA-C Work Phone: [employer]. Start: 03-13-2019 End: 03-13-2019 Charlene Capone PA-C Work Phone: [employer] Start: 03-08-2019 End: 03-08-2019 Charlene Capone PA-C Work Phone: [employer] Start: 03-07-2019 End: 03-07-2019 Office outpatient visit 25 minutes Charlene Capone PA-C Work Phone: [employer]. Start: 03-07-2019 End: 03-06-2019 Charlene Capone PA-C Work Phone: [employer] Start: 01-18-2019 End: 01-18-2019 Office outpatient visit 15 minutes Charlene Capone PA-C Work Phone: [employer] Start: 12-28-2018 End: 12-28-2018 Charlene Capone PA-C Work Phone: [employer] Start: 11-16-2018 End: 11-16-2018 Office outpatient visit 25 minutes Charlene Capone PA-C Work Phone: [employer] Start: 08-18-2018 End: 08-18-2018 Patient encounter status Charlene Capone PA-C Work Phone: [employer]. Start: 08-18-2018 End: 08-18-2018 Charlene Capone PA-C Work Phone: [employer]. Start: 06-16-2018 End: 06-16-2018 Charlene Capone PA-C Work Phone: [employer] Start: 05-09-2018 End: 05-09-2018 Office outpatient visit 15 minutes Charlene Capone PA-C Work Phone: [employer] Start: 02-21-2018 End: 02-21-2018 Charlene Capone PA-C Work Phone: [employer] Start: 02-09-2018 End: 02-09-2018 Office outpatient visit 25 minutes Charlene Capone PA-C Work Phone: [employer] Start: 11-24-2017 End: 11-24-2017 Charlene Capone PA-C Work Phone: [employer] Start: 11-11-2017 End: 11-11-2017 Office outpatient visit 25 minutes Charlene Capone PA-C Work Phone: [employer] Start: 10-06-2017 End: 10-06-2017 Charlene Capone PA-C Work Phone: [employer] Start: 08-12-2017 End: 08-12-2017 Charlene Capone PA-C Work Phone: [employer] Start: 08-12-2017 End: 08-12-2017 Office outpatient visit 15 minutes Charlene Capone PA-C Work Phone: [employer] Start: 05-17-2017 End: 05-17-2017 Charlene Capone PA-C Work Phone: [employer]. Start: 04-13-2017 End: 04-15-2017 Charlene Capone PA-C Work Phone: [employer]. Start: 04-07-2017 End: 04-07-2017 Evaluation finding Charlene Capone PA-C Work Phone: [employer]. Start: 04-07-2017 End: 04-07-2017 Charlene Cpaone PA-C Work Phone: [employer]. Start: 02-15-2017 End: 02-15-2017 Charlene Capone PA-C Work Phone: [employer] Start: 11-24-2016 End: 11-24-2016 Charlene Capone PA-C Work Phone: [employer]. Start: 11-19-2016 End: 11-19-2016 Charlene Capone PA-C Work Phone: [employer]. Start: 08-13-2016 End: 08-13-2016 Charlene Capone PA-C Work Phone: [employer]. Start: 05-13-2016 End: 05-13-2016 Charlene Capone PA-C Work Phone: [employer] Start: 03-20-2016 End: 03-22-2016 Office outpatient visit 25 minutes Charlene Capone PA-C Work Phone: [employer] Start: 02-14-2016 End: 02-14-2016 Charlene Capone PA-C Work Phone: [employer]. Start: 11-12-2015 End: 11-12-2015 Charlene Capone PA-C Work Phone: [employer] Start: 10-29-2015 End: 10-29-2015 Charlene Capone PA-C Work Phone: [employer] Start: 10-09-2015 End: 10-09-2015 Charlene Capone PA-C Work Phone: [employer]. Start: 09-04-2015 End: 09-04-2015 Charlene Capone PA-C Work Phone: [employer]. Start: 08-07-2015 End: 08-07-2015 Charlene Capone PA-C Work Phone: [employer]. Start: 07-23-2015 End: 07-23-2015 Office outpatient visit 15 minutes Charlene Capone PA-C Work Phone: [employer]. Start: 07-08-2015 End: 07-08-2015 Charlene Capone PA-C Work Phone: [employer] Start: 07-03-2015 End: 07-04-2015 Charlene Capone PA-C Work Phone: [employer] Start: 06-28-2015 End: 06-28-2015 Office outpatient visit 15 minutes Charlene Capone PA-C Work Phone: [employer]. Start: 05-14-2015 End: 05-14-2015 Charlene Capone PA-C Work Phone: [employer] Start: 03-11-2015 End: 03-11-2015 Charlene Capone PA-C Work Phone: [employer]. Start: 02-27-2015 End: 02-27-2015 Charlene Capone PA-C Work Phone: [employer] Start: 01-31-2015 End: 01-31-2015 Charlene Capone PA-C Work Phone: [employer] Start: 01-16-2015 End: 01-17-2015 Charlene Capone PA-C Work Phone: [employer]. Start: 11-20-2014 End: 11-20-2014 Charlene Capone PA-C Work Phone: [employer]. Start: 11-15-2014 End: 11-15-2014 Charlene Capone PA-C Work Phone: [employer]. Start: 09-26-2014 End: 09-26-2014 Charlene Capone PA-C Work Phone: [employer]. Start: 08-27-2014 End: 08-27-2014 Charlene Capone PA-C Work Phone: [employer]. Start: 05-30-2014 End: 05-31-2014 Charlene Capone PA-C Work Phone: [employer]. Start: 05-24-2014 End: 05-24-2014 Routine general medical examination at a health care facility Charlene Capone PA-C Work Phone: [employer] Start: 05-24-2014 End: 05-24-2014 Charlene Capone PA-C Work Phone: [employer]. Start: 04-24-2014 End: 04-24-2014 Charlene Capone PA-C Work Phone: [employer]. Start: 03-16-2014 End: 03-16-2014 Charlene Capone PA-C Work Phone: [employer]. Start: 02-28-2014 End: 02-28-2014 Charlene Capone PA-C Work Phone: [employer]. Start: 02-26-2014 End: 02-26-2014 Charlene Capone PA-C Work Phone: [employer]. Start: 08-30-2013 End: 08-30-2013 Charlene Capone PA-C Work Phone: [employer]. Start: 07-31-2013 End: 07-31-2013 Charlene Capone PA-C Work Phone: [employer]. Start: 07-25-2013 End: 07-25-2013 Charlene Capone PA-C Work Phone: [employer]. Start: 07-12-2013 End: 07-12-2013 Charlene Capone PA-C Work Phone: [employer]. Start: 07-05-2013 End: 07-05-2013 Charlene Capone PA-C Work Phone: [employer]. Start: 06-14-2013 End: 06-14-2013 Charlene Capone PA-C Work Phone: [employer]. Start: 06-12-2013 End: 06-12-2013 Charlene Capone PA-C Work Phone: [employer]. Start: 06-07-2013 End: 06-07-2013 Charlene Capone PA-C Work Phone: [employer]. Start: 04-26-2013 End: 04-26-2013 Charlene Capone PA-C Work Phone: [employer]. Start: 03-27-2013 End: 03-27-2013 Charlene Capone PA-C Work Phone: [employer]. Start: 03-24-2013 End: 03-24-2013 Charlene Capone PA-C Work Phone: [employer]. Start: 01-25-2013 End: 01-25-2013 Charlene Capone PA-C Work Phone: [employer]. Start: 01-23-2013 End: 01-23-2013 Charlene Capone PA-C Work Phone: [employer]. Start: 11-21-2012 End: 11-21-2012 Charlene Capone PA-C Work Phone: [employer]. Start: 10-26-2012 End: 10-26-2012 Charlene Capone PA-C Work Phone: [employer]. Start: 10-19-2012 End: 10-19-2012 Charlene Capone PA-C Work Phone: [employer]. Start: 09-08-2012 End: 09-08-2012 Charlene Capone PA-C Work Phone: [employer]. Start: 07-12-2012 End: 07-12-2012 Charlene Capone PA-C Work Phone: [employer]. Start: 07-12-2012 End: 07-12-2012 Charlene Capone PA-C Work Phone: [employer]. Start: 05-27-2012 End: 05-27-2012 Charlene Capone PA-C Work Phone: [employer]. Start: 03-30-2012 End: 03-30-2012 Charlene Capone PA-C Work Phone: [employer]. Start: 02-03-2012 End: 02-03-2012 Charlene Capone PA-C Work Phone: [employer]. Start: 12-30-2011 End: 12-30-2011 Charlene Capone PA-C Work Phone: [employer] Start: 12-22-2011 End: 12-22-2011 Charlene Capone PA-C Work Phone: [employer]. Start: 11-19-2011 End: 11-19-2011 Charlene Capone PA-C Work Phone: [employer]. Start: 10-05-2011 End: 10-05-2011 Charlene Capone PA-C Work Phone: [employer] Start: 08-27-2011 End: 08-27-2011 Charlene Capone PA-C Work Phone: [employer]. Start: 08-12-2011 End: 08-12-2011 Charlene Capone PA-C Work Phone: [employer] Start: 03-26-2011 End: 03-26-2011 Charlene Capone PA-C Work Phone: [employer] Start: 02-19-2011 End: 02-19-2011 Charlene Capone PA-C Work Phone: [employer] Start: 01-22-2011 End: 01-22-2011 Cahrlene Capone PA-C Work Phone: [employer] Start: 09-01-2010 End: 09-01-2010 Charlene Capone PA-C Work Phone: [employer] Start: 08-28-2010 End: 08-28-2010 Charlene Capone PA-C Work Phone: [employer] Start: 08-18-2010 End: 08-18-2010 Laboratory examination ordered as part of a routine general medical examination Charlene Capone PA-C Work Phone: [employer]. Start: 08-18-2010 End: 08-18-2010 Charlene Capone PA-C Work Phone: [employer] Start: 07-17-2010 End: 07-17-2010 Charlene Capone PA-C Work Phone: [employer] [facility]. Evaluation finding Damari van PA-C Work Phone: [facility].; [facility] Laboratory examinati on ordered as part of a routine general medical examination Violet Dawn RN [facility]. Medical examinations/reports status Charlene Loran Capone PA-C Work Phone: [facility].; [facility]. Patient encounter status Itzel Pickett MA [facility]. Patient encounter status Flo Henson PA-C Work Phone: [facility].; [facility]. Patient encounter status Ryan JOEC Work Phone: [facility] Patient encounter status Dania Michel MA [facility].; [facility] Patient encounter status Dania Michel MA [facility].; [facility] Patient encounter status Itzel Pickett MA [facility].; [facility]. Patient encounter status Charlene SANDHU-C Work Phone: [facility].; [facility] Patient encounter status Damari mandujano RN [facility].; [facility] Preprocedural examin ation done Dania Michel [facility].; [facility]. Preprocedural examin ation done Dania Michel [facility]. Preprocedural examin ation done Itzel Pickett [facility] Routine general medi cristian examination at a [facility] Violet Dawn RN [facility] Procedures Date Procedure Procedure Detail Performing Clinician Start: 07-10-2025 Ultrasonography of abdomen Charlene SANDHU Work Phone: Start: 05-10-2025 End: 05-10-2025 Danisha Lal Start: 02-23-2025 End: 02-23-2025 Depression screening Charlene SANDHU-C Work Phone: Start: 02-23-2025 End: 02-23-2025 Scr dep neg, no plan reqd Charlene SANDHU-C Work Phone: Start: 02-14-2025 End: 02-14-2025 Hyacinth Mahajan Start: 02-09-2025 End: 02-09-2025 Hyacinth Mahajan Start: 11-15-2024 End: 11-15-2024 Hyacinth Mahajan Start: 09-11-2024 Radex shoulder complete minimum 2 views Alondra Little MD Work Phone: Start: 08-09-2024 End: 08-09-2024 Dania Michel MA Start: 07-11-2024 Screening digital breast tomosynthesis bi Rupali Sage APRN.TECHNICAL RECRUITER Work Phone: Start: 02-18-2024 End: 02-18-2024 Depression screening Charlene SANDHU-C Work Phone: Start: 02-18-2024 End: 02-18-2024 Scr dep neg, no plan reqd Charlene SANDHU-C Work Phone: Start: 01-10-2024 End: 01-10-2024 [...] Start: 08-13-2022 End: 08-13-2022 Depression screening Charlene SANDHU-C Work Phone: Start: 08-13-2022 End: 08-13-2022 Pos clin depres scrn f/u doc Charlene SANDHU-C Work Phone: Start: 10-03-2021 End: 10-03-2021 Mammography Itzel Pickett MA Start: 07-17-2021 End: 07-17-2021 Depression screening Charlene J Capone PA-C Work Phone: Start: 07-17-2021 End: 07-17-2021 Scr dep neg, no plan reqd Charlene Rothman Capone PA-C Work Phone: Start: 07-06-2021 End: 07-06-2021 Lab findings surveillance Itzel Shirley Start: 07-06-2021 End: 07-06-2021 Itzel Pickett MA Start: 07-06-2021 End: 07-06-2021 Itzel Pickett MA Start: 2021 End: 2021 Most recent diastolic blood pressure 80-89 mm hg Damari Baldwin Nyack PA-C Work Phone: Start: 2021 End: 2021 Most recent systolic blood press 130-139mm hg Damari Baldwin Nyack PA-C Work Phone: Start: 09-12-2020 End: 09-12-2020 Depression screening Damari Baldwin Nyack PA -C Work Phone: Start: 09-12-2020 End: 09-12-2020 Scr dep neg, no plan reqd Damari Hogan ls PA-C Work Phone: Start: 09-06-2020 End: 09-25-2021 Dxa bone density study 1/> sites axial skel Damari Baldwin Nyack PA-C Work Phone: Start: 06-30-2020 End: 06-30-2020 Itzel Pickett MA Start: 06-12-2020 End: 09-25-2021 Most recent hg a1c>equal to 7.0%&<8.0% Damari Baldwin Nyack PA-C Work Phone: Start: 03-12-2020 End: 09-25-2021 Most recent hg a1c>equal to 7.0%&<8.0% Damari Baldwin Nyack PA-C Work Phone: Start: 03-12-2020 End: 03-12-2020 Itzel Pickett MA Start: 12-12-2019 End: 09-25-2021 Most recent hg a1c>equal to 7.0%&<8.0% Damari Henson PA-C Work Phone: Start: 09-06-2019 End: 09-06-2019 [...] End: 03-07-2019 Foot examination performed Damari Calvo bookers PA-C Work Phone: Start: 03-07-2019 End: 03-07-2019 [...] hemoglobin a1c level gt 7.0-9.0 % Damari Baldwin Nyack PA-C Work Phone: Start: 02-09-2018 End: 02-09-2018 Body mass index documented Damari Baldwin Hi lls PA-C Work Phone: Start: 02-09-2018 End: 02-09-2018 Dilated retinal exam w/evidence of retinopathy Damari Baldwin Nyack PA-C Work Phone: Start: 02-09-2018 End: 02-09-2018 Most recent hemoglobin a1c level < 7.0% Damari D Nyack PA-C Work Phone: Start: 02-09-2018 End: 02-17-2018 Us soft tissue head & neck real time imge docm Damari Henson PA-C Work Phone: Start: 11-24-2017 End: 11-24-2017 Itzel Pickett MA Start: 11-11-2017 End: 11-11-2017 Body mass index documented Damari Calvo lls PA-C Work Phone: Start: 11-11-2017 End: 11-11-2017 Dilated retinal exam w/evidence of retinopathy Damari Henson PA-C Work Phone: Start: 11-11-2017 End: 11-11-2017 Most recent hemoglobin a1c level < 7.0% Damari Baldwin Nyack PA-C Work Phone: Start: 11-11-2017 End: 11-11-2017 Negative microalbuminuria test result doc&rev Damari Denny Nyack PA-C Work Phone: Start: 09-11-2017 End: 09-11-2017 Bilateral oophorectomy Itzel Pickett MA Start: 08-12-2017 End: 08-12-2017 Most recent diastolic blood pressure < 80 mm hg Damari D Nyack PA-C Work Phone: Start: 08-12-2017 End: 08-12-2017 Most recent hemoglobin a1c level < 7.0% Damari Henson PA-C Work Phone: Start: 08-12-2017 End: 08-12-2017 Most recent systolic blood pressure <130 mm hg Damari Henson PA-C Work Phone: Start: 08-12-2017 End: 08-12-2017 Body mass index documented Damari celestes PA-C Work Phone: Start: 06-08-2017 End: 06-08-2017 [...] Start: 10-29-2015 End: 10-29-2015 Removal skn tags carton repairer fibrq tags any area upw/15 Damari Henson PA-C Work Phone: Start: 11-20-2014 End: 11-29-2014 Xtrnl ecg & 48 hr record scan stor w/r&i Damari Henson PA-C Work Phone: Start: 07-19-2013 Colonoscopy Rupali Sage APRN.ENMA Work Phone: Start: 06-12-2013 End: 06-14-2013 Hepatobiliary syst imaging including gallbladder Damari Henson PA-C Work Phone: Start: 06-07-2013 End: 06-12-2013 Us abdominal real time w/image limited Damari Henson PA-C Work Phone: Start: 11-08-2012 End: 11-08-2012 Cholecystectomy Itzel Pickett MARYJO Start: 11-08-2012 End: 11-08-2012 Colonoscopy Itzel Pickett MARYJO Start: 07-12-2012 End: 07-12-2012 Polysom 6/>yrs sleep [...] Detail Author Start: 2031 Tetanus vaccination TETANUS [facility] Start: 2031 Urine microalbumin profile DTaP,Tdap,Td Vaccine (3 - Td or Tdap) [facility] Start: 05-10-2028 HPV TESTING HPV TESTING [facility] Start: 05-10-2028 PAP TESTING PAP TESTING [facility] Start: 05-10-2028 Screening for malignant neoplasm of cervix Cervical Cancer Screening [facility] Start: 08-15-2025 End: 08-15-2025 Patient encounter procedure 08/15/2025 10:30 AM EDT Office Visit OB/Gynecology [address] [place], [place] [id number] Rupali Sage APRN.TECHNICAL RECRUITER [address] [place], [place] [id number] Annual OB/Gynecology Comment on above: Annual Start: 08-15-2025 End: 08-15-2025 Patient encounter procedure 08/15/2025 9:10 AM EDT Appointment Mammogram [address] [place] [id number] SCREENING MAMMOGRAM W GLORIA Mammogram Comment on above: SCREENING MAMMOGRAM W GLORIA Start: 08-14-2025 [facility] Start: 07-11-2025 Screening for malignant neoplasm of breast [facility] Start: 07-10-2025 End: 07-10-2025 Patient encounter procedure Mammogram Comment on above: Encounter for gynecological examination (general) (routine) without abnormal fin... Annual Start: 07-04-2025 DIABETES SCREEN DIABETES SCREEN [facility] Start: 07-04-2025 Diabetes Screening Diabetes Screening [facility] Start: 06-25-2025 End: 06-25-2025 Us abdominal real time w/image limited [facility] Start: 02-23-2025 [facility] Start: 2025 RSV Vaccine (1 - Risk 60-74 years 1-dose series) RSV Vaccine (1 - Risk 60-74 years 1-dose series) [facility] Start: 08-25-2024 [facility] Start: 07-09-2024 Covid-19 Vaccine ( season) Covid-19 Vaccine ( season) [facility] Start: 07-09-2024 COVID-19 VACCINE ( season) COVID-19 VACCINE ( season) [facility] Start: 07-09-2024 Influenza vaccination Influenza Vaccine (#1) [facility] Start: 05-10-2024 Mammography MAMMOGRAM [facility] Start: 02-18-2024 [facility] Start: 02-03-2024 [facility] Start: 11-12-2023 Anes open proc bones lower leg/ankle/foot nos ANESTH LOWER LEG BONE SURG [facility] Start: 11-12-2023 Ostectomy calcaneus spur w/wo plntar fascial rls REMOVAL OF HEEL SPUR [facility] Start: 11-12-2023 Repair primary open/prq ruptured achilles tendon REPAIR ACHILLES TENDON [facility] Start: 11-12-2023 Application of gauze support bandage [facility] Start: 11-12-2023 Catheterization of vein [facility] Start: 11-12-2023 Elevation of foot of bed [facility] Start: 11-12-2023 Neurovascular assessment [facility] Start: 11-12-2023 Patient discharge [facility] Start: 11-12-2023 Procedure discontinued [facility] Start: 11-12-2023 Vital signs measurements [facility] Start: 11-12-2023 [facility] Start: 07-09-2023 Influenza vaccination [facility] Start: 11-08-2022 DEPRESSION ASSESSMENT DEPRESSION ASSESSMENT [facility] Start: 10-09-2022 Anes rpr ruptured achilles tendon w/wo graft ANESTH ACHILLES TENDON SURG [facility] Start: 10-09-2022 Fasciotomy foot&/toe INCISION OF FOOT FASCIA [facility] Start: 10-09-2022 Repair primary open/prq ruptured achilles tendon REPAIR ACHILLES TENDON [facility] Start: 10-09-2022 Application of ice collar, cap or bag [facility] Start: 10-09-2022 Catheterization of vein [facility] Start: 10-09-2022 Elevation of foot of bed [facility] Start: 10-09-2022 Neurovascular assessment [facility] Start: 10-09-2022 Patient discharge [facility] Start: 10-09-2022 Procedure discontinued [facility] Start: 10-09-2022 Vital signs measurements [facility] Start: 10-09-2022 [facility] Start: 10-03-2022 Mammography MAMMOGRAM [facility] Start: 09-12-2021 COVID-19 VACCINE (3 - Booster for Pfizer series) COVID-19 VACCINE (3 - Booster for Pfizer series) [facility] Start: 09-12-2021 COVID-19 VACCINE (3 - Pfizer series) COVID-19 VACCINE (3 - Pfizer series) [facility] Start: 04-15-2021 Comprehensive metabolic panel [facility], [facility], [facility]. Start: 01-14-2021 Urine microalbumin profile DTaP,Tdap,Td Vaccine (1 - Tdap) [facility] Start: 09-09-2017 End: 09-09-2017 Mri upper extremity oth than jt w/o contr matrl MRI Non Joint Upper Extremity [facility] Work Phone: Start: 09-09-2017 End: 09-09-2017 Radex hand minimum 3 views X-Ray, Hand [facility] Medicine and Orthopaedics Work Phone: Start: 09-09-2017 End: 09-09-2017 Appointment Appointment [facility] Medicine [facility] Orthopaedics Work Phone: Start: 09-08-2017 End: 09-08-2017 Appointment Appointment [facility] Orthopaedics Work Phone: Start: 06-14-2017 End: 06-14-2017 Esophagogastroduodenoscopy transoral diagnostic EGD; diagnostic, including collection of specimen [facility] Work Phone: Start: 06-10-2017 End: 06-10-2017 Colonoscopy flx dx w/collj spec when pfrmd Colonoscopy [facility] Work Phone: Start: 07-19-2016 Colonoscopy COLONOSCOPY [facility] Start: 07-19-2016 COLORECTAL CANCER SCREENING COLORECTAL CANCER SCREENING [facility] Start: 07-19-2016 Screening for malignant neoplasm of colon [facility] Start: 06-01-2016 End: 08-12-2016 EMG EMG [facility] Medicine and Orthopaedics Work Phone: Start: 06-01-2016 End: 08-12-2016 Nerve Conduction Nerve Conduction [facility] Medicine [facility] Orthopa[facility]ics Work Phone: Start: 06-01-2016 End: 08-12-2016 Radex spine cervical 2 or 3 views X-Ray, Spine, Cervical 2-3 views [facility] Medicine and Orthopaedics Work Phone: Start: 2015 Pneumococcal Vaccine: 50+ (2 of 2 - PCV) Pneumococcal Vaccine: 50+ (2 of 2 - PCV) [facility] Start: 2015 SHINGRIX VACCINE (1 of 2) SHINGRIX VACCINE (1 of 2) [facility] Start: 2015 Zoster vaccine hzv live for subcutaneous use ZOSTER (SHINGLES) VACCINE (1 of 2) [facility] Start: 2010 COLOGUARD (FIT-DNA) COLOGUARD (FIT-DNA) [facility] Start: [address] COLONOGRAPHY [facility] Start: 2010 FECAL OCCULT BLOOD FECAL OCCULT BLOOD [facility] Start: 2010 Lipid panel Lipid Screening [facility] Start: 2010 LIPID SCREEN LIPID SCREEN [facility] Start: 2010 Screening for malignant neoplasm of colon [facility] Start: 2010 SIGMOIDOSCOPY SIGMOIDOSCOPY [facility] Start: 2005 Lipid panel LIPID SCREENING [facility] Start: 1995 HPV TESTING HPV TESTING [facility] Start: 1986 PAP TESTING PAP TESTING [facility] Start: 1986 Screening for malignant neoplasm of cervix CERVICAL CANCER SCREENING DISCUSSION [facility] Start: 01-14-1984 Hepatitis B vaccination HEP B VACCINE (1 of 3 - 19+ 3-dose series) [facility] Start: 01-14-1984 Third diphtheria, tetanus and acellular pertussis (DTaP) vaccination TDAP (ADULT) [facility] Start: 01-14-1984 Urine microalbumin profile DTAP,TDAP,TD (1 - Tdap) [facility] Start: 1983 Anxiety Screening Anxiety Screening [facility] Start: 1983 Depression Screening Depression Screening [facility] Start: 1983 HEPATITIS C SCREENING HEPATITIS C SCREENING [facility] Start: 1983 Hepatitis C screening Hepatitis C Screening [facility] Start: 1983 HIV SCREENING HIV SCREENING [facility] Start: 1983 HIV screening HIV Screening [facility] Start: 01-14-1980 HIV screening HIV SCREENING DISCUSSION [facility] Start: 1965 COVID-19 VACCINE (#1) COVID-19 VACCINE (#1) [facility] Start: 1965 HEPATITIS B (1 of 3 - 3-dose series) HEPATITIS B (1 of 3 - 3-dose series) [facility] Start: 1965 Hepatitis C screening HEPATITIS C VIRUS SCREENING [facility] End: 08-10-2025 DBT Breast - bilateral screening JHONATAN SCREENING W [facility] Radiology Routine Encounter for gynecological examination (general) (routine) without abnormal findings Encounter for screening mammogram for breast cancer 1 Occurrences starting 07/11/2024 until 08/10/2025 [facility] Work Phone: Comment on above: 1 Occurrences starting 07/11/2024 until 08/10/2025 End: 01-25-2026 DBT Breast - bilateral screening JHONATAN SCREENING W [facility]OR[facility] Radiology Routine Encounter for screening mammogram for malignant neoplasm of breast 1 Occurrences starting 12/26/2024 until 01/25/2026 [facility] Work Phone: Comment on above: 1 Occurrences starting 12/26/2024 until 01/25/2026 End: 05-22-2024 JHONATAN SCREENING W GLORIA JHONATAN SCREENING W [facility] Radiology Routine Encounter for screening mammogram for malignant neoplasm of breast 1 Occurrences starting 04/23/2023 until 05/22/2024 [facility] Work Phone: Comment on above: 1 Occurrences starting 04/23/2023 until 05/22/2024 End: 06-08-2024 JHONATAN SCREENING W GLORIA JHONATAN SCREENING W [facility] Radiology Routine Encounter for gynecological examination with abnormal finding Encounter for screening mammogram for breast cancer 1 Occurrences starting 05/10/2023 until 06/08/2024 [facility] Work Phone: Comment on above: 1 Occurrences starting 05/10/2023 until 06/08/2024 Microscopic observat ion [Identifier] in Vaginal fluid by Gram stain BACT/ROBERTO CARLOS VAG GRAM STAIN Microbiology Routine Vulvovaginal itching 05/10/2023 10:30 AM EDT [facility] Work Phone: PAP TEST PAP TEST Lab Rou maurice Encounter for gynecological examination with abnormal finding Encounter for screening for human papillomavirus (HPV) Pap smear for cervical cancer screening 05/10/2023 10:30 AM EDT [facility] Work Phone: Patient Education CARPAL%20TUNNE L%20SU RGERY [facility] Work Phone: Patient referral [facility] Work Phone: [facility] Immunizations Immunization Date Immunization Notes Care Provider Katlyn lee 06-26-2021 Charlene Capone PA -C [facility]: [facility] 2021 TD(adult) unspecifie d formulation Charlene Capone PA-C Work Phone: [facility] 02-14-2018 typhoid vaccine, molly e, oral Charlene Capone PA-C Work Phone: [facility] 02-09-2018 typhoid vaccine, unspecified formulation Charlene Capone PA-C Work Phone: [facility] 10-06-2017 hepatitis A vaccine, adult dosage Charlene Capone PA-C Work Phone: [facility] 02-15-2017 hepatitis A vaccine, adult dosage Charlene Capone PA-C Work Phone: [facility] [facility] 07-29-2016 influenza, seasonal, injectable Charlene Capone PA-C Work Phone: [facility] 07-29-2016 influenza virus vacc ine, unspecified formulation Rupali Sage APRN.TECHNICAL RECRUITER Work Phone: [facility] 08-30-2013 pneumococcal Conjuga te, unspecified formulation Charlene Capone PA-C Work Phone: [facility] [employer] 08-30-2013 pneumococcal polysaccharide vaccine, 23 valent Charlene Capone PA-C Work Phone: [facility] [facility] 10-22-2009 tetanus toxoid, redu ubaldo diphtheria toxoid, and acellular pertussis vaccine, adsorbed Charlene Capone PA-C Work Phone: [facility], [place].; [facility]. Work Phone: Payers Date Payer Category Payer Self-pay [id number] 2023 [employer] BLUE ACCE PPO [id number] 2023 Unknown [id number] 2014 Unknown [id number] 2006 Unknown [id number] 1965 Unknown [id number] [id number]. 2.65 1965 Unknown [id number] 2.16840.1.033389.3.579. 2.65 1965 Unknown [id number] 2.16840.1.046680.3.579. 2.65 1965 Unknown [id number] 2.16840.1.729256.3.579. 2.65 1965 Unknown [id number] 2.16.840.1.376157.3.579. 2.651 1965 Unknown [id number] 2.16840.1.489515.3.579. 2.651 1965 Unknown [id number] 2.16.840.1.884257.3.579. 2.651 1965 Unknown [id number] 2.16.840.1.077906.3.579. 2.594 1965 Unknown [id number] 2.16.840.1.607669.3.579. 2.594 Private Health Insurance [id number] Unknown [id number] Unknown [id number] Unknown [id number] 2.16.840.1.323041.3.579. 2.462 Unknown [id number] 2.16.840.1.562064.3.579. 2.462 Unknown [id number] 2.16.840.1.558389.3.579. 2.462 Unknown [id number] 2.16.840.1.883069.3.579. 2.462 Unknown [id number] 2.16.840.1.893151.3.579. 2.462 Unknown [id number] 2.16.840.1.164479.3.579. 2.462 Unknown [id number] 2.16.840.1.346438.3.579. 2.462 Social History Date Type Detail Facility Start: 09-01-2018 End: 11-02-2023 Tobacco smoking status NEIS Unknown if ever smoked [facility] Start: 1965 Sex Assigned At Female [facility] Start: 06-12-2020 End: 11-02-2023 Tobacco smoking status NHIS Never smoked tobacco [facility] Work Phone: Start: 06-12-2020 End: 05-10-2023 Tobacco use and exposure Smokeless tobacco non-user [facility] Work Phone: Start: 08-06-2021 End: 03-07-2025 Alcohol intake Current non-drinker of alcohol (finding) [facility] Start: 06-12-2020 History SDOH Financial 5 [facility] Start: 06-12-2020 History SDOH Food Worry 1 [facility] Start: 06-12-2020 History SDOH Transport Med 2 [facility] Start: 1965 Sex Assigned At Not on file [facility] Start: 06-12-2020 End: 05-10-2023 History of Social function [facility] Work Phone: Start: 06-12-2020 End: 05-10-2023 Tobacco use panel [facility] Work Phone: How hard is it for you to pay for the very basics like food, housing, medical care, and heating Not hard at all [facility] Work Phone: (I/We) worried whether (my/our) food would run out before (I/we) got money to buy more. Never true [facility] Work Phone: None. [employer] Never smoker. [employer]; [employer] Start: 02-15-2025 Sex Female (finding) [facility] NEGATED: Highlighted row [facility] Medical Equipment Procedure Code Equipment Code Equipment Origin al Text Equipment Identifier Dates ([id number]) Tendon/ligament bone anchor, bioabsorbable [id number] [facility] Start: 10-09-2022 [id number] Start: 09-06-2019 [id number] Start: 09-06-2019 ([id number]) Tendon/ligament bone anchor, bioabsorbable ([id number] [facility] Start: 11-12-2023 Goals Date Patient Goal Desired Activity /State 03-08-2019 Functional Status Date Assessment Result Facility 12-16-2014 Are you deaf, or do you have serious difficulty hearing No 12/16/2014 10:23 AM Laura Farrell RN No [facility] Work Phone: 12-16-2014 Are you blind, or do you have serious difficulty seeing, even when wearing glasses No 12/16/2014 10:23 AM Laura Farrell RN No [facility] 12-16-2014 Do you have serious difficulty walking or climbing stairs No 12/16/2014 10:23 AM Laura Farrell RN No [facility] 12-16-2014 Do you have difficul ty dressing or bathing No 12/16/2014 10:23 AM Laura Farrell RN No [facility] 12-16-2014 Because of a physica l, mental, or emotional condition, do you have difficulty doing errands alone such as visiting a physician's office or shopping No 12/16/2014 10:23 AM Laura Farrell RN No [facility] Mental Status Date Assessment Result Facility 11-12-2023 Cognitive function Lethargic [facility] Work Phone: 10-09-2022 Cognitive function Voice/Name [facility] Work Phone: 10-09-2022 Cognitive function Patient Nimo saldivar Person;Place;Time [facility] Work Phone: 12-16-2014 Because of a physica l, mental, or emotional condition, do you have serious difficulty concentrating, remembering, or making decisions No 12/16/2014 10:23 AM Laura Farrell RN No [facility] Clinical Notes 2023 to 08-15-2025 Raissa Griffith APRN.TECHNICAL RECRUITER - 03/07/2025 8:46 AM EDTTelephone Encounter - Michelle Landry LPN - 12/26/2024 3:39 PM ESTTelephone Encounter - Michelle Landry LPN - 12/26/2024 3:39 PM EST Note Date & Type Note Facility 08-15-2025 Note HNO ID: [id number] Author: SUSANA VUONG Mammo Tech Service: ? Author Type: Customer Service Security Officer Type: Progress Notes Filed: 08/15/2025 09:31 Note Text: Radiology Service Progress Note PATIENT NAME: Lyndsey Pandey DATE OF SERVICE: August 15, 2025 TIME: 9:30 AM PATIENT IDENTITY VERIFICATION COMPLETED USING TWO (2) IDENTIFIERS: Name and Date of confirmed by patient verbally. FALL SCREENING: Has the patient had 2 falls in the last year or 1 fall with injury or currently using an Ambulatory Assistive Device (Walker, Cane, Wheelchair, Crutches, etc.)? No PATIENT GENDER DATA: Assigned female at . status: : No status: NO. PATIENT RELEVANT IMPLANT DATA REVIEWED: Not Applicable PATIENT PRESENTS WITH AN IMPLANTABLE OR ATTACHED PLASTIC SHAPER: No RADIOLOGY DEPARTMENT: Mammography PERIPHERAL IV DATA: Not applicable SIGNED BY: Susana Vuong [employer] August 15, 2025 9:30 AM [facility] 07-10-2025 Radiology Diagnostic study note [facility] Imaging Services [address] [place] [address] Abdomen Limited MR#: [id number] Acct: [id number] Name: LYNDSEY PANDEY Rep #: [id number] : 1965 F 60 From: Royce Patel MD PCP: PHOEBE Mackey Status: REG CLI Study:Abdomen Limited Date of Exam: 01/02 Exam# [id number] Ordering Dr: Sally Capone PROCEDURE: ABDOMEN LIMITED 07/10/2025 REASON FOR EXAM: ELEVATED LIVER ENZYMES TECHNIQUE: Procedure Code: USABDL Modality: US Procedure: ABDOMEN LIMITED COMPARISON: None. FINDINGS: Liver: Diffusely echogenic suggesting fatty infiltration. The liver is mildly enlarged measuring 16.6 cm in vertical dimension in the midclavicular line. Gallbladder: Surgically absent. Common bile duct: 6 mm Pancreas: Visualized portions are sonographically unremarkable. Other: Visualized portions of the right kidney are unremarkable. The right kidney measures 11.6 x 4.7 x 4.5 cm, with a cortical thickness of 1.7 cm. No right upper quadrant ascites. US/Abdomen Limited IMPRESSION: 1. Enlarged fatty liver. 2. Other findings as noted. Reading Location: [id number] CC: PHOEBE Mackey ~ Staff Consultant: Signed [facility] Work Phone: 03-07-2025 Note HNO ID: [id number] Author: RAISSA GRIFFITH APRN.TECHNICAL RECRUITER Service: ? Author Type: Nurse Practitioner Type: Progress Notes Filed: 03/07/2025 10:13 Note Text: [facility] Subjective HPI HPI Lyndsey [...] tablet Take by mouth. calcium carbonate/vitamin D2 ([id number] ORAL) Take 1 tablet by mouth once [...] - PREDNISONE 10 MG TABLET Raissa Griffith APRN.TECHNICAL RECRUITER Disposition The patient was discharged. Procedures [facility] 03-07-2025 History of Presen t illness Narrative [...] tablet Take by mouth. calcium carbonate/vitamin D2 ([id number] ORAL) Take 1 tablet by mouth once [...] - PREDNISONE 10 MG TABLET Raissa Griffith APRN.TECHNICAL RECRUITER Disposition The patient was discharged. Procedures documented in this encounter [facility] 12-26-2024 Telephone encounter Note Patient called requesting an order for a screening mammmogram with gloria. Last yearly exam was 07/11/2024 [facility] 12-26-2024 Miscellaneous Notes Patient called requesting an order for a screening mammmogram with gloria. Last yearly exam was 07/11/2024 documented in this encounter [facility] 09-11-2024 History of Presen t illness Narrative [...] Medicine Sports Medicine documented in this encounter [facility] 09-11-2024 Instructions Alondra Little MD - 09/11/2024 [...] primary care physician documented in this encounter [facility] 07-11-2024 Note Formatting of this n ote might be different from the original. July 11, 2024 PID: [id number] Lyndsey Pandey [id number] [place] [address] Dear Ms. Pandey, We are pleased to [...] report will be kept on file at [facility] as part of your permanent medical record and are available for your continuing care. Thank you for allowing us to help in meeting your health care needs. Sincerely, Dr. Torres Interpreting Radiologist [facility] (Normal over 40) [facility] 07-11-2024 Miscellaneous Notes July 11, 2024 PID: [id number] Lyndsey Pandey [address] [place] [address] Dear Ms. Pandey, We are pleased to [...] report will be kept on file at [facility] as part of your permanent medical record and are available for your continuing care. Thank you for allowing us to help in meeting your health care needs. Sincerely, Dr. Torres Interpreting Radiologist [facility] (Normal over 40) documented in this encounter [facility] 07-11-2024 History of Presen t illness [...] PATIENT PRESENTS WITH AN IMPLANTABLE OR ATTACHED PLASTIC SHAPER: No RADIOLOGY DEPARTMENT: Mammography PERIPHERAL IV DATA: Not applicable SIGNED BY: Emerson Banerjee [employer] July 11, 2024 9:15 AM documented in this encounter [facility] 07-11-2024 History of Presen t illness Narrative Master Esthetician offered:Patient timo Solorio is a 59 year [...] L2 SAB0 IAB0 Ectopic0 Multiple0 Live Births0 Corrugator Helper History LMP: Postmenopausal Age at Menarche: 13 Age at First : Age at Menopause: 45 Corrugator Helper History Comments: Sexual Activity: Not Currently; Male [...] date: FOOT SURGERY HX; Right Comment: 2021 2017: HAND LEFT OP SURGERY 06/27/2013: LAPAROSCOPY SURG [...] external genitalia normal, normal Bartholin's glands, urethra, Hoot Owl's glands, no vulvar lesions, no cervical lesions, [...] year or sooner as needed Rupali Sage APRN.TECHNICAL RECRUITER documented in this encounter [facility] 02-07-2024 Discharge summary Note Date/Time February 07, 2024 11:33am [facility] [address] [place] [address] / REHABILITATION SERVICES DISCHARGE SUMMARY MR#: [id number] Acct: [id number] Name: LYNDSEY PANDEY Rep #: [id number] : 1965 59 From: Flex De La Cruz PT, ATC Referring Dr.: AMISHA Brooks Status : REG RCR Insurance: [employer] S[employer]F PAY INSURANCE Discharge Summary D/C summary: [...] please feel free to call me at [phone]. Thank you for the referral of thispatient. Sincerely, Flex De La Cruz, PT, ATC Balance/Gait/Functional tests Balance/Special Test Scores Lower Extremity Functional Score: 52 Improvement % Improvement: 95 <Electronically signed by Flex De La Cruz PT, ATC> 02/07/24 1133 CC: AMISHA Brooks; PHOEBE Mackey ~ [facility] Signed [facility] Work Phone: 1(636) 754-576001-05-2024 Discharge summary Author Mg Brooks [facility] November 12, 2023 9:41am Note Date/Time November 12, 2023 7: 30am [facility] Medical Records Department [address] [place] [address] Instructions for Home/Discharge Instructions 11/12/23 0729 MR#: [id number] Acct: [id number] Name: LYNDSEY PANDEY #:[id number] : 1965 58 From: Mg Brooks DPM PCP: PHOEBE Mackey Status:[facility] Discharge Instructions Diet Discharge Diet: Light diet [...] can be placed): Home, Self Care 11/12/23 0938<Electronically signed by Mg Brooks DPM>Mg Brooks DPM CC: PHOEBE Mackey ~ Signed [facility] Work Phone: 1(163) 467-698307-05-2023 Miscellaneous Notes* Letter - Mammography Coordinator - 05/12/2023 11:10 AM EDT May 13, 2023 PID: [id number] Lyndsey Pandey [address] [place] [address] Dear Adam Dannie, We are pleased to inform you [...] report will be kept on file at [facility] as part of your permanent medical record and are available for your continuing care. Thank you for allowing us to help in meeting your health care needs. Sincerely, Dr. Malloy Interpreting Radiologist [facility] (Normal over 40) documented [facility] Instructions* Patient Instructions* Rupali Sage APRN.[facility] - 05/10/2023 10:07 AM EDT Calcium and [...] calcium and are the major food contributors int [place]. For example, 8oz of milk (whole, lowfat or skim) contains about 300mg calcium, 8oz of yogurt contains 415mg. Nondairy sources include salmon and sardines and vegetables, such as [place] cabbage, kale, and broccoli. Foods fortified with [...] acid, calcium carbonate is found in some gwcn-tot-brvpugx antacid products, such as Tums and Rolaids [...] prescribed by your doctor. [facility] History of Present illness Narrative* Rupali Sage APRN.CNP - 05/10/2023 9:04 AM EDT Master Esthetician offered: Patient declines. Solorio is a 58 year old who presents [...] L2 SAB0 IAB0 Ectopic0 Multiple0 Live Births0 Corrugator Helper History LMP: Postmenopausal Age at Menarche: 13 Age at First : Age at Menopause: 45 Corrugator Helper History Comments: Sexual Activity: Not Currently; Male [...] external genitalia normal, normal Bartholin's glands, urethra, Hoot Owl's glands, no vulvar lesions, no cervical lesions, [...] date with screening BMD: osteopenia, managed by inspector circuitry negative 2. Vulvovaginal itching - ICD9: 698.1, ICD10: L29.2 - BACT/ROBERTO CARLOS VAG GRAM STAIN 3. Postmenopausal atrophic vaginitis - ICD9: 627.3, ICD10: N95.2 - discussed treatment with vaginal hyaluronic acid or vaginal estrogen. Prefers Revaree hyaluronic acid vaginal suppositories - use explained and given ordering information. 4) Follow up one year or sooner as needed. Will notify of results. Rupali Sage APRN.ENMA [facility] Miscellaneous Notes* Telephone Encounter - Danielle Mahajan RN - 04/23/2023 10:35 AM EDT PSS: Please contact patient to schedule mammogram. Thank you. * Telephone Encounter - Rupali Sage APRN.CNP - 04/23/2023 10:32 AM EDT Order filed. Please notify pt. Rupali Sage APRN.ENMA * Telephone Encounter - Danielle Mahajan RN - 04/23/2023 10:18 AM EDT Patient has upcoming annual exam on 05/10. Please file pended order. Danielle Mahajan RN * Telephone Encounter - Josselin Burgos - 04/23/2023 10:15 AM EDT Pt asking for mammo orders. Please call to schedule when placed. documented in [facility]23 Discharge summary Author Leticia Mehta [facility] 2023 10:01am Note Date/Time January 12, 2023 11:4 7am [facility] [address] [place] [address] [address] [place] [address] / REHABILITATION SERVICES DISCHARGE SUMMARY MR#: [id number] Acct: [id number] Name: LYNDSEY PANDEY Rep #: [id number] [...] with HEP Discharge Comments: DC PT to [facility] If there are questions or concerns regarding this patient's physical therapy, please feel free to call me at [phone]. Thank you for the referral of thispatient. Sincerely, FABI Herrera Balance/Gait/Functional tests - Balance/Special Test Scores Lower Extremity Functional Score: 72 <Electronically signed by Leticia Mehta MPT> 01/13/23 1001 CC: AMISHA Brooks; PHOEBE Capone ~ Signed [facility] Work Phone: Evaluation noteNo assessment information available [facility] Work Phone: Evaluation note* Diagnosis Encounter for screening mammogram for malignant neoplasm of breast- Primary Other screening [facility] Diagnosis Encounter for gynecological examination with abnormal finding- Primary Routine gynecological examination Vulvovaginal itching Pruritus of genital organs Postmenopausal atrophic vaginitis Encounter for screening for human papillomavirus (HPV) Special screening examination for human papillomavirus (HPV) Pap smear for cervical cancer screening Screening for malignant neoplasm of the cervix Encounter for screening mammogram for breast cancer [facility] Diagnosis Encounter for gynecological examination (general) (routine) without abnormal findings- Primary Encounter for screening mammogram for breast cancer [facility] Diagnosis Encounter for screening mammogram for malignant neoplasm of breast Other screening mammogram [facility]* Diagnosis Left shoulder pain, unspecified chronicity- Primary Left shoulder pain, unspecified chronicity [facility] Diagnosis Left shoulder pain, unspecified chronicity documented in this encounter [facility] note* Diagnosis Encounter for screening mammogram for malignant neoplasm of breast- Primary Other screening mammogram documented in this encounter [facility] note* Diagnosis Acute pain of left shoulder- Primary documented in this encounter [facility] for referral (narrative)* Diagnostic Procedure Only (Routine) - Authorized Specialty Diagnoses / Procedures Referred By Akila wade Referred To Contact [facility] Diagnoses Encounter for screening mammogram for malignant neoplasm of breast Procedures JHONATAN SCREENING W GLORIA SCREENING DIGITAL BREAST TOMOSYNTHESIS BI SCREENING MAMMOGRAPHY BI 2-VIEW BREAST INC Rupali Bee APRN.CNP [address] [place] [address] [facility] [address] [place] [id number] Referral ID Status Reason Start Date Expiration Date Visits Requested Visits Authorized [id number] Authorized Auto-Generat ed Referral 04/23/2023 05/22/2024 1 1 [facility] Diagnostic Procedure Only (Routine) - Pending Review Specialty Diagnoses / Procedures Referred By Akila wade Referred To Contact [facility] Diagnoses Encounter for gynecological examination with abnormal finding Encounter for screening mammogram for breast cancer Procedures JHONATAN SCREENING W GLORIA SCREENING DIGITAL BREAST TOMOSYNTHESIS BI SCREENING MAMMOGRAPHY BI 2-VIEW BREAST INC Rupali Bee APRN.TECHNICAL RECRUITER [address] [place] [place] [address] [facility] [address] [email or web address] [address] Referral ID Status Reason Start Date Expiration Date Visits Requested Visits Authorized [id number] Pending Review Auto-Generat ed Referral 05/10/2023 06/08/2024 1 1 [facility] for referral (narrative)* Diagnostic Procedure Only (Routine) - Authorized Specialty Diagnoses / Procedures Referred By Akila wade Referred To Contact [facility] Diagnoses Encounter for gynecological examination (general) (routine) without abnormal findings Encounter for screening mammogram for breast cancer Procedures JHONATAN SCREENING W GLORIA SCREENING DIGITAL BREAST TOMOSYNTHESIS BI SCREENING MAMMOGRAPHY BI 2-VIEW BREAST INC Rupali Bee APRN.TECHNICAL RECRUITER [address] [place] [place] [address] [facility] [address] [place] [address] Referral ID Status Reason Start Date Expiration Date Visits Requested Visits Authorized [id number] Authorized Auto-Generat ed Referral 07/11/2024 08/10/2025 1 1 [facility] for referral (narrative)* Diagnostic Procedure Only (Routine) - Closed Specialty Diagnoses / Procedures Referred By Akila wade Referred To Contact [facility] Diagnoses Encounter for screening mammogram for malignant neoplasm of breast Procedures JHONATAN SCREENING W GLORIA SCREENING DIGITAL BREAST TOMOSYNTHESIS BI SCREENING MAMMOGRAPHY BI 2-VIEW BREAST INC Rupali Bee APRN.TECHNICAL RECRUITER [address] [place] [place] [address] [facility] [address] [email or web address] [address] Referral ID Status Reason Start Date Expiration Date V isits Requested Visits Authorized [id number] Closed Auto-Generate d Referral 04/24/2024 05/24/2025 1 1 [facility]No reason for referral [facility] Reason for visit Narrative* Diagnostic Procedure Only (Routine) - Closed Specialty Diagnoses / Procedures Referred By Contac t Referred To Contact [facility] Diagnoses Encounter for screening mammogram for malignant neoplasm of breast Procedures JHONATAN SCREENING W GLORIA SCREENING DIGITAL BREAST TOMOSYNTHESIS BI SCREENING MAMMOGRAPHY BI 2-VIEW BREAST INC Rupali Bee APRN.TECHNICAL RECRUITER [address] [place] [address] [facility] [address] [place] [address] Referral ID Status Reason Start Date Expiration Date V isits Requested Visits Authorized [id number] Closed Auto-Generate d Referral 04/24/2024 05/24/2025 1 1 [facility] Summary Purpose Family History No Family History [...] Yes June 16, 2018 9:42am Power of Beading Machine Operator Yes June 16 9:42am Advance Directive Response Recorded Date/ Time Advance Directives Yes July 1:29pm Living Will Yes June 16, 2018 8:42am Power of Beading Machine Operator Yes June 16 8:42am Advance Directive Response Recorded Date/ Time Advance Directives Yes July 1:29pm Living Will No October 02, 022 9:03am Power of Beading Machine Operator No October 02, 2022 9:03am Advance Directive Response Recorded Date/ Time Advance Directives Yes July 2:29pm Living Will No October 02, 022 10:03am Power of Beading Machine Operator No October 02, 2022 10:03am Advance Directive Response Recorded Date/ Time Advance Directives Yes July 1:29pm Living Will No November 02, 2 023 2:23pm Power of Beading Machine Operator No November 02, 2023 2:23pm Advance Directive Response Recorded Date/ Time Advance Directives Yes July 2:29pm Living Will No November 02, 2 023 3:23pm Power of Beading Machine Operator No November 02, 2023 3:23pm Advance Directive [...] o s/p plantar fasciitis achilles debridement.RX HERE Chief Complaint Admit Date Abnormal levels of other serum enzymes A ugust 2024 7:38am Chief Complaint Admit Date Abnormal levels of other serum enzymes A ugust 2024 7:38am ELEVATED LIVER ENZYMES July 10 7:30am Reason for Referral Specialty Diagnoses / Procedures Referred By Contac t Referred To Contact Diagnoses Left shoulder pain, unspecified chronicity Procedures XR SHOULDER LEFT 2+ VIEWS Alondra Little MD [address] [place] [address] [address] [place] [address] Referral ID Status Reason Start Date Expiration Date V isits Requested Visits Authorized [id number] New Request 09/11/2024 10/06/2025 1 1 Additional Source Comments INFORMATION SOURCE (unrecogn ized section and content) DATE CREATED AUTHOR 09/22/2021 [facility] DATE CREATED AUTHOR AUTHOR'S ORGANIZ ATION 08/18/2022 [facility] DATE CREATED AUTHOR AUTHOR'S ORGANIZ ATION 09/12/2024 [facility] DATE CREATED AUTHOR AUTHOR'S ORGANIZ ATION 08/20/2025 [facility] DATE CREATED AUTHOR AUTHOR'S ORGANIZ ATION 09/03/2025 [facility] Goals (unrecognized section and content) Goals may [...] Primary Care Provider Active Dr. Mg Brooks DPM Attending Provider, Lakhwinder g Provider Active Team Status: Inactive Member [...] Dai DO Attending Provider, Referring Provider Active Small Animal Caretaker Relationship Specialty Start Date End Date Damari Henson PA-C PCP - General Family Medicine 09/13/16 Small Animal Caretaker Relationship Specialty Start Date End Date Damari Henson PA-C PCP - General Family Medicine 09/13/16 Small Animal Caretaker Relationship Specialty Start Date End Date Damari Henson PA-C PCP - General Family Medicine 09/13/16 Small Animal Caretaker Relationship Specialty Start Date End Date Damari Henson PA-C PCP - General Family Medicine 09/13/16 Team Status: Active Member Role Status Dates PHOEBE Mackey Primary Care Provider Active Dr. Mg Brooks DPM Attending Provider, Referwilmer g Provider Active Team Status: Inactive Member Role Status Dates PHOEBE Mackey Primary Care Provider, Attending Pro vider Active Small Animal Caretaker Relationship Specialty Start Date End Date Natividad Damari Baldwin PA-C PCP - General Family Medicine 09/13/16 Small Animal Caretaker Relationship Specialty Start Date End Date NatividadLisetDamarigisselle Baldwin PA-C PCP - General Family Medicine 09/13/16 Small Animal Caretaker Relationship Specialty Start Date End Date Natividad Damarigisselle Baldwin PA-C PCP - General Family Medicine 09/13/16 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 River Dai DO Attending Provider Active Start: February 09, 2025 End: February 09, 2025 Dr. River Dai DO Referring Provider Active Start: February 09, 2025 End: February 09, 2025 Team Status: Inactive Member Role/Relationship Status Dates Charlene Capone , PA Primary Care Provider Active S tart: May 05, 2025 End: May 05, 2025 Maria Teresa Pimentel PA, PA Attending Provider Active Start: May 05, 2025 End: May 05, 2025 Maria Teresa Pimentel PA, PA Referring Provider Active Start: May 05, 2025 End: May 05, 2025 Team Status: Inactive Member Role/Relationship Status Dates Charlene Capone , PA Primary Care Provider Active S tart: May 05, 2025 End: May 05, 2025 Maria Teresa Pimentel PA, PA Attending Provider Active Start: May 05, 2025 End: May 05, 2025 Maria Teresa Pimentel PA, PA Referring Provider Active Start: May 05, 2025 End: May 05, 2025 Team Status: Inactive Member Role/Relationship Status Dates Charlene Capone , PA Primary Care Provider Active S tart: June 23, 2025 End: June 23, 2025 Maria Teresa Pimentel PA, PA Attending Provider Active Start: June 23, 2025 End: June 23, 2025 Margarito PA, PA Referring Provider Active Start: June 23, 2025 End: June 23, 2025 Team Status: Active Member Role/Relationship Status Dates Charlene Capone , PA Primary care physician Active Team Status: Inactive Member Role/Relationship Status Dates Charlene Capone , PA Primary care physician Active Start: May 05, 2025 End: May 05, 2025 Maria Teresa Pimentel PA, PA Attending physician Active Start: May 05, 2025 End: May 05, 2025 Maria Teresa Pimentel PA, PA Referring Provider Active Start: May 05, 2025 End: May 05, 2025 Team Status: Inactive Member Role/Relationship Status Dates Charlene Capone , PA Primary care physician Active Start: June 23, 2025 End: June 23, 2025 Maria Teresa Pimentel PA, PA Attending physician Active Start: June 23, 2025 End: June 23, 2025 Maria Teresa Pimentel PHOEBE SANDHU Referring Provider Active Start: June 23, 2025 End: June 23, 2025 Team Status: Inactive Member Role/Relationship Status Dates PHOEBE Mackey Primary care physician Active Start: July 10, 2025 End: July 10, 2025 PHOEBE Mackey Attending physician Active Sta rt: July 10, 2025 End: July 10, 2025 PHOEBE Mackey Referring Provider Active Star t: July 10, 2025 End: July 10, 2025 Source Comments (unrecognize d section and content) In the event this informatio n is protected by the Federal Confidentiality of Alcohol and Drug Abuse Patient Records regulations: The Federal rules restrict any use of the information to criminally investigate or prosecute any alcohol or drug abuse patient.[facility] the event this information is protected by the Federal Confidentiality of Alcohol and Drug Abuse Patient Records regulations: The Federal rules restrict any use of the information to criminally investigate or prosecute any alcohol or drug abuse patient.[facility] the event this information is protected by the Federal Confidentiality of Alcohol and Drug Abuse Patient Records regulations: The Federal rules restrict any use of the information to criminally investigate or prosecute any alcohol or drug abuse patient.[facility] the event this information is protected by the Federal Confidentiality of Alcohol and Drug Abuse Patient Records regulations: The Federal rules restrict any use of the information to criminally investigate or prosecute any alcohol or drug abuse patient.[facility] the event this information is protected by the Federal Confidentiality of Alcohol and Drug Abuse Patient Records regulations: The Federal rules restrict any use of the information to criminally investigate or prosecute any alcohol or drug abuse patient.[facility] the event this information is protected by the Federal Confidentiality of Alcohol and Drug Abuse Patient Records regulations: The Federal rules restrict any use of the information to criminally investigate or prosecute any alcohol or drug abuse patient.[facility] the event this information is protected by the Federal Confidentiality of Alcohol and Drug Abuse Patient Records regulations: The Federal rules restrict any use of the information to criminally investigate or prosecute any alcohol or drug abuse patient.[facility] the event this information is protected by the Federal Confidentiality of Alcohol and Drug Abuse Patient Records regulations: The Federal rules restrict any use of the information to criminally investigate or prosecute any alcohol or drug abuse patient.[facility] the event this information is protected by the Federal Confidentiality of Alcohol and Drug Abuse Patient Records regulations: The Federal rules restrict any use of the information to criminally investigate or prosecute any alcohol or drug abuse patient.[facility] Reason for Visit (unrecogniz ed section [...] 2+ VIEWS Alondra Little MD [address] [place] [address] [address] [place] [address] Referral ID Status Reason Start Date Expiration Date V isits Requested Visits Authorized [id number] New Request 09/11/2024 10/06/2025 1 1 Reason [...] BE BASED ON THE PRIMARY CLINICAL RECORDS. [facility] [employer] [facility]. provides no warranty or guarantee of the accuracy or completeness of information in this document.
[2025-10-27 08:37] LABS: AST(SGOT) 33 U/L (<=31); Alanine Aminotransfer ALT/SGPT 38 U/L (<=34); Albumin, Serum 4.3 g/dL (3.4-4.8); Alkaline Phosphatase 87 U/L (35-104); Anion Gap 10 (5-15); BUN 13 mg/dL (4-19); BUN/Creat Ratio 14.7 RATIO (10-20); Calcium,Total 9.1 mg/dL (7.6-11.0); Carbon Dioxide 26.2 mmol/L (21.0-32.0); Chloride 104 mmol/L (98-108); Cholesterol 86 mg/dL (<=200); Globulin 2.5 g/dL (2.2-4.2); Glucose 105 mg/dL (70-99); Low Density Lipoprotein Calc. 27 mg/dL; Potassium 3.8 mmol/L (3.3-5.1); Triglycerides 82 mg/dL; Very Low Density Lipoprotein 16 mg/dL (5-40); cholesterol:hdl ratio screen 2.02
[2025-10-27 08:42] LABS: Creatinine, Urine (random) 193.00 mg/dL (28.00-217.00); Microalbumin,Random Urine 28.6 mg/L (<20 mg/L)
== END | disposition home or self-care (01) ==
LOC: LAB 07:23
PROVIDERS: PCP Family Medicine; Referring Provider Physician Assistant; Visit Provider Physician Assistant
DX: E11.9 Type 2 diabetes mellitus without complications (principal); E78.2 Mixed hyperlipidemia
CPT/HCPCS: 36415; 80053; 80061; 82043; 82570; 83036